=== PATIENT | female | born 1955 | race African-American/Black ===

== ENCOUNTER → 2016-09-27 | Outpatient (CLI) | payer MEDICARE, MEDICAID ==
[2015-08-31 10:00] VITALS: BP 94/58
[~2016-09-27] MED LIST: ASCO500C PO; ASPI81TA2 PO; CALC-169 PO; CAND32TA2 PO; CARV6.252 PO; COMPLETE; CYAN10005 PO; DOCU-27 PO; FERR134T PO; FURO40TA4 PO; GABA-586 PO; Hydrocodone/Acetaminophen PO; INSU100C4 SQ; INSU100I13 SQ; LOSA100T6 PO; LOSA25TA PO; METF500T4 PO; METO5TAB PO; OXYB5TAB PO; POLY17PO5 PO; SIMV20TA3 PO; SULF1TAB24 PO; [UNRECOGNIZED DRUG - OTHER]
== END | disposition home or self-care (01) ==
LOC: SPEC 17:16
PROVIDERS: ATTEND Podiatrist Foot & Ankle Surgery
DX: E11.42 Type 2 diabetes mellitus with diabetic polyneuropathy (principal); L97.521 Non-pressure chronic ulcer of other part of left foot limited to breakdown of skin
CPT/HCPCS: 87205

== ENCOUNTER 2016-10-13 19:27 | Inpatient (IN) | payer MEDICAID, MEDICARE ==
[~2016-10-13] VITALS: Ht 165.1 cm; Wt 83.6 kg
[~2016-10-13 19:27] MED LIST changes: +POLY17PO29 PO; -POLY17PO5 PO
[2016-10-13 20:37] LABS: BILIRUBIN,URINE NEGATIVE (NEG); GLUCOSE,URINE NEGATIVE (NEG); NITRITE,URINE NEGATIVE (NEG); PH,URINE 6.5; PROTEIN,URINE 100 mg/dL (NEG-TRACE); UROBILINOGEN,URINE 0.2 mg/dL (0.2 mg/dL)
[2016-10-13 20:38] LABS: BASO % 1 % (0-3); EOS % 0 % (0-3); HEMATOCRIT 29.7 % (36.0-47.0); HEMOGLOBIN 9.5 g/dL (12.0-15.5); LYMPH # 2.6 x10^3/uL (1.0-4.8); LYMPH % 50 % (24-48); MEAN CORPUSCULAR HEMOGLOBIN 26 pg (25-35); MEAN CORPUSCULAR HGB CONC 32 g/dL (31-37); MEAN CORPUSCULAR VOLUME 80 fL (79-100); MONO % 11 % (0-9); NEUT % 38 % (31-73); PLATELET COUNT 186 x10^3/uL (140-400); RED BLOOD COUNT 3.71 x10^6/uL (3.50-5.40); RED CELL DISTRIBUTION WIDTH 15.8 % (11.5-14.5); WHITE BLOOD COUNT 5.1 x10^3/uL (4.0-11.0)
[2016-10-13 20:44] LABS: BACTERIA,URINE FEW /HPF (0-FEW); RBC,URINE OCC /HPF (0-2)
[2016-10-13 20:45] LABS: SQUAMOUS EPITHELIAL CELL,UR MANY /LPF
[2016-10-13 20:49] LABS: CALCIUM 9.8 mg/dL (8.5-10.1); CREATININE 1.7 mg/dL (0.6-1.0); GFR 37.1; POTASSIUM 5.5 mmol/L (3.5-5.1)
[2016-10-13 20:57] LABS: ALBUMIN 3.4 g/dL (3.4-5.0); ALBUMIN/GLOBULIN RATIO 0.6 (1.0-1.7); TOTAL BILIRUBIN 0.4 mg/dL (0.2-1.0); TOTAL PROTEIN 9.2 g/dL (6.4-8.2)
[2016-10-13] MEDS ORDERED: NITROGLYCERIN SUBLINGUAL 0.4 MG BOTTLE OF 25. SL PRN ×2 (21:15→22:45)
[2016-10-13] MEDS ORDERED: ASPIRIN ENTERIC COATED 325 MG TABLET.DR. PO ONE (21:30)
[2016-10-13 21:49] LABS: CKMB MASS 1.4 ng/mL (0.0-3.6)
--- NOTE | 2016-10-13 22:13 | ED.ADGEN ---
Past Medical History Past Medical History: CHF, Diabetes-Type II, MRSA, Other Additional Past Medical Histor: blindness rt eye Past Surgical History: Cholecystectomy, Pacemaker, Other Additional Past Surgical Histo: "pacemaker removal",AMPUTATION OF 2ND TOE LEFT FOOT Alcohol Use: None Drug Use: None Adult General Chief Complaint Chief Complaint: ABDOMINAL PAIN HPI HPI Patient is a 61 year old female with history of onset diabetes, CHF, osteomyelitis of left foot with recent amputation of toe who presents with a gastric discomfort for the past 3 days. Patient reports persistent discomfort, abdominal bloating, patient's last bowel movement was approximately 9 days ago. Patient has been taking antibiotics and pain medications since left foot surgery. She denies fever, chills, nausea, vomiting and sweats. Denies chest pain, chest tightness, shortness breath, palpitation, recently pain or sweats. No leg pain or dysuria. No other acute symptoms or complaints. Review of Systems Review of Systems Review symptoms as.. All other review of symptoms negative. Current Medications Current Medications Current Medications Medications (Trade) Dose Ordered Sig/Wilfrid Start Time Stop Time Status Last Admin Dose Admin Aspirin (Ecotrin) 325 mg 1X ONCE 10/13/16 21:30 10/13/16 21:31 DC 10/13/16 21:40 325 MG Nitroglycerin (Nitrostat) 0.4 mg PRN Q5MIN PRN 10/13/16 21:15 10/13/16 22:42 DC Allergies Allergies Allergies Coded Allergies Type Severity Reaction Last Updated Verified celecoxib Allergy Intermediate 09/24/13 Yes ciprofloxacin Allergy Intermediate 04/16/15 Yes I S O L A T I O N *CONTACT* Allergy Unknown 07/24/15 Yes Physical Exam Physical Exam Constitutional: Well developed, well nourished, no acute distress, non-toxic appearance. HENT: Normocephalic, atraumatic, bilateral external ears normal, nose normal. Eyes: PERRLA, EOMI, conjunctiva normal. Neck: Normal range of motion, no tenderness. Cardiovascular:Heart rate regular rhythm, no murmur. Lungs & Thorax: Bilateral breath sounds clear to auscultation. Abdomen: Bowel sounds normal, soft, tension, normal bowel sounds, mild epigastric pain, tenderness reproducing with palpation. No rebound rigidity or guarding. Skin: Warm, dry, no erythema. Back: No tenderness, no CVA tenderness. Extremities: Left foot bandage for amputation Neurologic: Alert and oriented X 3, normal motor function, normal sensory function, no focal deficits noted. Psychologic: Affect normal, judgement normal, mood normal. Current Patient Data Vital Signs Vital Signs Date Time Temp Pulse Resp B/P Pulse Ox O2 Delivery O2 Flow Rate FiO2 10/13/16 22:11 73 18 156/74 95 Room Air 10/13/16 19:40 96.4 96.4 Lab Values Laboratory Tests Test 10/13/16 19:50 10/13/16 20:25 Urine Collection Type Unknown Urine Color Yellow Urine Clarity Clear Urine pH 6.5 Urine Specific [place] 1.015 Urine Protein 100mg/dL (NEG-TRACE) Urine Glucose (UA) Negativemg/dL (NEG) Urine Ketones (Stick) Negativemg/dL (NEG) Urine Blood Negative (NEG) Urine Nitrite Negative (NEG) Urine Bilirubin Negative (NEG) Urine Urobilinogen Dipstick 0.2mg/dL (0.2 mg/dL) Urine Leukocyte Esterase Trace (NEG) Urine RBC Occ/HPF (0-2) Urine WBC 5-10/HPF (0-4) Urine Squamous Epithelial Cells Many/LPF Urine Bacteria Few/HPF (0-FEW) Urine Hyaline Casts Occasional/HPF Urine Mucus Slight/LPF White Blood Count 5.1x10^3/uL (4.0-11.0) Red Blood Count 3.71x10^6/uL (3.50-5.40) Hemoglobin 9.5g/dL (12.0-15.5) L Hematocrit 29.7% (36.0-47.0) L Mean Corpuscular Volume 80fL (79-100) Mean Corpuscular Hemoglobin 26pg (25-35) Mean Corpuscular Hemoglobin Concent 32g/dL (31-37) Red Cell Distribution Width 15.8% (11.5-14.5) H Platelet Count 186x10^3/uL (140-400) Neutrophils (%) (Auto) 38% (31-73) Lymphocytes (%) (Auto) 50% (24-48) H Monocytes (%) (Auto) 11% (0-9) H Eosinophils (%) (Auto) 0% (0-3) Basophils (%) (Auto) 1% (0-3) Neutrophils # (Auto) 1.9x10^3uL (1.8-7.7) Lymphocytes # (Auto) 2.6x10^3/uL (1.0-4.8) Monocytes # (Auto) 0.6x10^3/uL (0.0-1.1) Eosinophils # (Auto) 0.0x10^3/uL (0.0-0.7) Basophils # (Auto) 0.0x10^3/uL (0.0-0.2) Sodium Level 133mmol/L (136-145) L Potassium Level 5.5mmol/L (3.5-5.1) H Chloride Level 102mmol/L (98-107) Carbon Dioxide Level 25mmol/L (21-32) Anion Gap 6 (6-14) Blood Urea Nitrogen 45mg/dL (7-20) H Creatinine 1.7mg/dL (0.6-1.0) H Estimated GFR (Cockcroft-Gault) 37.1 BUN/Creatinine Ratio 26 (6-20) H Glucose Level 149mg/dL (70-99) H Calcium Level 9.8mg/dL (8.5-10.1) Total Bilirubin 0.4mg/dL (0.2-1.0) Aspartate Amino Transferase (AST) 97U/L (15-37) H Alanine Aminotransferase (ALT) 68U/L (14-59) H Alkaline Phosphatase 435U/L (46-116) H Creatine Kinase 101U/L (26-192) Creatine Kinase MB (Mass) 1.4ng/mL (0.0-3.6) Creatine Kinase MB Relative Index 1.4% (0-4) Troponin I Quantitative 0.263ng/mL (0.000-0.055) C-Reactive Protein, Quantitative 3.3mg/L (0-3.3) Total Protein 9.2g/dL (6.4-8.2) H Albumin 3.4g/dL (3.4-5.0) Albumin/Globulin Ratio 0.6 (1.0-1.7) L Lipase 370U/L (73-393) Laboratory Tests 10/13/16 20:25 Laboratory Tests 10/13/16 20:25 EKG EKG [EKG: Normal sinus rhythm, rate 81, LVH with early repolarization, no acute ST- T wave changes, QTC 502] Radiology/Procedures Radiology/Procedures CT abdomen pelvis: No acute disease] Impressions: Nondescript upper abdominal pain, pressure without relief of aspirin and nitroglycerin. Patient's troponin noted to be positive, EKG does not reveal acute change Course & Med Decision Making Course & Med Decision Making Pertinent Labs and Imaging studies reviewed. (See chart for details) [s. No relief with nitroglycerin. Repeat troponin pending. Will admit to the hospitalist service for evaluation and treatment ] Dragon Disclaimer Dragon Disclaimer This electronic medical record was generated, in whole or in part, using a voice recognition dictation system. KRIS SIMS DO Oct 13, 2016 22:13
[2016-10-13] MEDS ORDERED: ONDANSETRON PF 4 MG/2 ML VIAL. IV PRN (22:45)
[2016-10-13] MEDS ORDERED: MORPHINE SULFATE 2 MG/ML DISP.SYRIN. IV PRN (22:45)
--- NOTE | 2016-10-13 23:13 | RAD ---
Examination: CT of the abdomen pelvis without contrast. HISTORY History of severe epigastric pain, nausea for several days. COMPARISON 05/25/2014. TECHNIQUE Axial CT images of the abdomen pelvis were performed without contrast. Coronal sagittal reformats were performed. Exposure: One or more of the following dose reduction technique were utilized for this examination: 1. Automated exposure control. 2.Adjustment of MA and /or KV according to patient size. 3. Use of iterative reconstruction technique. Findings: Minimal bibasilar lung atelectasis identified. No evidence of free air identified in the abdomen. The evaluation the solid organs is limited lack of IV contrast. The evaluation the bowel is limited lack of oral contrast. The visualized non contrasted liver, spleen, adrenals grossly appears unremarkable. Cholecystectomy clips identified. The stomach is mildly distended. No evidence of intrarenal collecting system calculi or hydronephrosis identified. There is minimal faint fat stranding about the pancreas probably due to mild motion artifact or mild pancreatitis. The small bowel is nondilated. The appendix is normal. Feces and gas noted in the colon throughout. The urinary bladder is mildly distended. Mild aortic atherosclerosis. No evidence of lytic bony destructive lesion. Impression: 1. Faint fat stranding identified about the pancreas could be due to motion artifact or pancreatitis. Correlate with lab values. 2. Cholecystectomy changes. Electronically signed by: Mike Brenner (Oct 13, 2016 23:12:07)
--- NOTE | 2016-10-13 23:23 | PDOC1 ---
History and Physical Date of Admission Date of Admission DATE: 10/13/16 TIME: 23:23 Identification/Chief Complaint Chief Complaint chest pain, abd pain Problems: Source Source: Chart review, Patient History of Present Illness History of Present Illness Santy is a 61 year old female with history of diabetes, CHF, Recently treated by Dr. Mercado, Podiatry, for osteomyelitis of left foot with recent amputation of toe. She presented to the ER today with acute abd pain and chest pain, gastric discomfort for the past 3 days. Pain about 5.10, but persistent discomfort, w/ some bloating, no recent bowel movement trop checked by ER, and minimally elevated, pt has prior CAD, had seen here previously by Dr. Manzano she feels better since presenting to ER, and was eating a sandwich in ER when I entered room Past Medical History Cardiovascular: CHF, HTN Pulmonary: No pertinent hx CENTRAL NERVOUS SYSTEM: Other Endocrine: Diabetes Past Surgical History Past Surgical History: Pacemaker, Cholecystectomy, Tonsillectomy, Other Family History Family History: Diabetes, Heart Disease, Hypertension Social History Smoke: No ALCOHOL: none Drugs: None Current Problem List Problem List Problems Medical Problems: (1) Abdominal pain Status: Acute (2) Chest pain Status: Acute (3) Elevated troponin Status: Acute Problems: Current Medications Current Medications Current Medications Aspirin (Ecotrin) 325 mg 1X ONCE PO Last administered on 10/13/16t 21:40; Start 10/13/16 at 21:30; Stop 10/13/16 at 21:31; Status DC Nitroglycerin (Nitrostat) 0.4 mg PRN Q5MIN PRN SL CHEST PAIN; Start 10/13/16 at 21:15; Stop 10/13/16 at 22:42; Status DC Ondansetron HCl (Zofran) 4 mg PRN Q8HRS PRN IV NAUSEA/VOMITING; Start 10/13/16 at 22:45; Stop 10/14/16 at 22:44 Morphine Sulfate 2 mg PRN Q2HR PRN IV SEVERE PAIN; Start 10/13/16 at 22:45; Stop 10/14/16 at 22:44 Nitroglycerin (Nitrostat) 0.4 mg PRN Q5MIN PRN SL CHEST PAIN; Start 10/13/16 at 22:45; Stop 10/14/16 at 22:44 Active Scripts Active Miralax (Polyethylene Glycol 3350) 17 Gm Powd.pack 17 Packet PO DAILY Colace (Docusate Sodium) 100 Mg Capsule 1 Cap PO BID [Hydrocodone/Acetaminophen] 1 TAB Tablet 1 Tab PO PRN Q6HRS PRN Reported High Potency Iron (Ferrous Sulfate) 134 Mg Tablet 134 Mg PO DAILY Losartan Potassium 100 Mg Tablet 100 Mg PO DAILY Metoclopramide Hcl 5 Mg Tablet 5 Mg PO DAILY Oxybutynin Chloride Er (Oxybutynin Chloride) 5 Mg Tab.er.24 1 Tab PO DAILY Furosemide 40 Mg Tablet 1 Tab PO DAILY Vitamin C (Ascorbic Acid) 500 Mg Capsule.er 500 Mg PO DAILY Gabapentin 300 Mg Capsule 600 Mg PO TID Vitamin B-12 (Cyanocobalamin (Vitamin B-12)) 1,000 Mcg Tablet 500 Mcg PO DAILY Lantus Solostar (Insulin Glargine,Hum.rec.anlog) 100 Unit/1 Ml Insuln.pen 10 Unit SQ QHS Novolog (Insulin Aspart) 100 Unit/1 Ml Cartridge 3 Unit SQ TIDAC Aspirin 81 Mg Tab.chew 81 Mg PO Carvedilol 6.25 Mg Tablet 6.25 Mg PO DAILY Metformin Hcl 500 Mg Tablet 1,000 Mg PO BID Calcium Citrate - Vit D3 Tab (Calcium Citrate/Vitamin D3) 1 Each Tablet 1 Each PO Allergies Allergies: Coded Allergies: celecoxib (Verified Allergy, Intermediate, 09/24/13) ciprofloxacin (Verified Allergy, Intermediate, 04/16/15) I S O L A T I O N *CONTACT* (Verified Allergy, Unknown, 07/24/15) mrsa + ROS Review of System She denies fever, chills, nausea, vomiting and sweats. Denies chest pain, chest tightness, shortness breath, palpitation, recently pain or sweats. No leg pain or dysuria. No other acute symptoms or complaints. General: No: Appetite, Chills, Fatigue, Malaise, Night Sweats, Other PSYCHOLOGICAL ROS: No: Anxiety, Behavioral Disorder, Concentration difficultie , Decreased libido, Depression, Disorientation, Hallucinations, Hostility, Irritablity, Memory difficulties, Mood Swings, Obsessive thoughts, Other, Physical abuse, Sexual abuse, Sleep disturbances, Suicidal ideation Eyes: No Blurry vision, No Decreased vision, No Double vision, No Dry eyes, No Excessive tearing, No Eye Pain, No Itchy Eyes, No Loss of vision, No Other, No Photophobia, No Scotomata, No Uses contacts, No Uses glasses HEENT: No: Epistaxis, Heacaches, Hearing change, Nasal congestion, Nasal discharge, Oral lesions, Other, Sinus pain, Sneezing, Snoring, Sore Throat, Tinnitus, Vertigo, Visual Changes, Vocal changes Respiratory: No: Cough, Hemoptysis, Orthopnea, Other, Pleuritic Pain, SOB with excertion, Shortness of breath, Sputum Changes, Stridor, Tachypnea, Wheezing Cardiovascular: yes Chest Pain, No Edema, No Lt Headedness, No Orthopnea, No Other, No Palpitations, No Paroxysmal Noc. Dyspnea Gastrointestinal: Yes Constipation, Yes Nausea Musculoskeletal: No Gait Disturbance, No Joint Pain, No Joint Stiffness, No Joint Swelling, No Muscle Pain, No Muscular Weakness, No Other, No Pain In:, No Swelling In: Neurological: Yes Dizziness, Yes Memory Loss, No Behavorial Changes, No Bowel/Bladder ControlChng, No Confusion, No Gait Disturbance, No Headaches, No Impaired Coord/balance, No Numbness/Tingling, No Other, No Seizures, No Speech Problems, No Tremors, No Visual Changes, No Weakness Skin: No Acne, No Dry Skin, No Eczema, No Hair Changes, No Lumps, No Mole Changes, No Mottling, No Nail Changes, No Other, No Pruritus, No Rash, No Skin Lesion Changes Physical Exam General: Alert, Oriented X3, Cooperative, No acute distress HEENT: Atraumatic, PERRLA, EOMI Lungs: Clear to auscultation, Normal air movement Heart: RRR, no murmurs Abdomen: Normal bowel sounds, Soft Rectal Exam: not examined Extremities: No clubbing, No cyanosis, No edema, Normal pulses Skin: No rashes, No significant lesion Neuro: Sensation intact, Cranial nerves 3-12 NL Psych/Mental Status: Mental status NL, Mood NL Vitals Vitals Vital Signs Date Time Temp Pulse Resp B/P Pulse Ox O2 Delivery O2 Flow Rate FiO2 10/13/16 21:41 76 17 147/77 94 Room Air 10/13/16 19:40 96.4 96.4 Labs Labs Laboratory Tests Test 10/13/16 19:50 10/13/16 20:25 Urine Collection Type Unknown Urine Color Yellow Urine Clarity Clear Urine pH 6.5 Urine Specific [place] 1.015 Urine Protein 100mg/dL (NEG-TRACE) Urine Glucose (UA) Negativemg/dL (NEG) Urine Ketones (Stick) Negativemg/dL (NEG) Urine Blood Negative (NEG) Urine Nitrite Negative (NEG) Urine Bilirubin Negative (NEG) Urine Urobilinogen Dipstick 0.2mg/dL (0.2 mg/dL) Urine Leukocyte Esterase Trace (NEG) Urine RBC Occ/HPF (0-2) Urine WBC 5-10/HPF (0-4) Urine Squamous Epithelial Cells Many/LPF Urine Bacteria Few/HPF (0-FEW) Urine Hyaline Casts Occasional/HPF Urine Mucus Slight/LPF White Blood Count 5.1x10^3/uL (4.0-11.0) Red Blood Count 3.71x10^6/uL (3.50-5.40) Hemoglobin 9.5g/dL (12.0-15.5) Hematocrit 29.7% (36.0-47.0) Mean Corpuscular Volume 80fL (79-100) Mean Corpuscular Hemoglobin 26pg (25-35) Mean Corpuscular Hemoglobin Concent 32g/dL (31-37) Red Cell Distribution Width 15.8% (11.5-14.5) Platelet Count 186x10^3/uL (140-400) Neutrophils (%) (Auto) 38% (31-73) Lymphocytes (%) (Auto) 50% (24-48) Monocytes (%) (Auto) 11% (0-9) Eosinophils (%) (Auto) 0% (0-3) Basophils (%) (Auto) 1% (0-3) Neutrophils # (Auto) 1.9x10^3uL (1.8-7.7) Lymphocytes # (Auto) 2.6x10^3/uL (1.0-4.8) Monocytes # (Auto) 0.6x10^3/uL (0.0-1.1) Eosinophils # (Auto) 0.0x10^3/uL (0.0-0.7) Basophils # (Auto) 0.0x10^3/uL (0.0-0.2) Sodium Level 133mmol/L (136-145) Potassium Level 5.5mmol/L (3.5-5.1) Chloride Level 102mmol/L (98-107) Carbon Dioxide Level 25mmol/L (21-32) Anion Gap 6 (6-14) Blood Urea Nitrogen 45mg/dL (7-20) Creatinine 1.7mg/dL (0.6-1.0) Estimated GFR (Cockcroft-Gault) 37.1 BUN/Creatinine Ratio 26 (6-20) Glucose Level 149mg/dL (70-99) Calcium Level 9.8mg/dL (8.5-10.1) Total Bilirubin 0.4mg/dL (0.2-1.0) Aspartate Amino Transf (AST/SGOT) 97U/L (15-37) Alanine Aminotransferase (ALT/SGPT) 68U/L (14-59) Alkaline Phosphatase 435U/L (46-116) Creatine Kinase 101U/L (26-192) Creatine Kinase MB (Mass) 1.4ng/mL (0.0-3.6) Creatine Kinase MB Relative Index 1.4% (0-4) Troponin I Quantitative 0.263ng/mL (0.000-0.055) C-Reactive Protein, Quantitative 3.3mg/L (0-3.3) Total Protein 9.2g/dL (6.4-8.2) Albumin 3.4g/dL (3.4-5.0) Albumin/Globulin Ratio 0.6 (1.0-1.7) Lipase 370U/L (73-393) Laboratory Tests Test 10/13/16 19:50 10/13/16 20:25 Urine Collection Type Unknown Urine Color Yellow Urine Clarity Clear Urine pH 6.5 Urine Specific [place] 1.015 Urine Protein 100mg/dL (NEG-TRACE) Urine Glucose (UA) Negativemg/dL (NEG) Urine Ketones (Stick) Negativemg/dL (NEG) Urine Blood Negative (NEG) Urine Nitrite Negative (NEG) Urine Bilirubin Negative (NEG) Urine Urobilinogen Dipstick 0.2mg/dL (0.2 mg/dL) Urine Leukocyte Esterase Trace (NEG) Urine RBC Occ/HPF (0-2) Urine WBC 5-10/HPF (0-4) Urine Squamous Epithelial Cells Many/LPF Urine Bacteria Few/HPF (0-FEW) Urine Hyaline Casts Occasional/HPF Urine Mucus Slight/LPF White Blood Count 5.1x10^3/uL (4.0-11.0) Red Blood Count 3.71x10^6/uL (3.50-5.40) Hemoglobin 9.5g/dL (12.0-15.5) Hematocrit 29.7% (36.0-47.0) Mean Corpuscular Volume 80fL (79-100) Mean Corpuscular Hemoglobin 26pg (25-35) Mean Corpuscular Hemoglobin Concent 32g/dL (31-37) Red Cell Distribution Width 15.8% (11.5-14.5) Platelet Count 186x10^3/uL (140-400) Neutrophils (%) (Auto) 38% (31-73) Lymphocytes (%) (Auto) 50% (24-48) Monocytes (%) (Auto) 11% (0-9) Eosinophils (%) (Auto) 0% (0-3) Basophils (%) (Auto) 1% (0-3) Neutrophils # (Auto) 1.9x10^3uL (1.8-7.7) Lymphocytes # (Auto) 2.6x10^3/uL (1.0-4.8) Monocytes # (Auto) 0.6x10^3/uL (0.0-1.1) Eosinophils # (Auto) 0.0x10^3/uL (0.0-0.7) Basophils # (Auto) 0.0x10^3/uL (0.0-0.2) Sodium Level 133mmol/L (136-145) Potassium Level 5.5mmol/L (3.5-5.1) Chloride Level 102mmol/L (98-107) Carbon Dioxide Level 25mmol/L (21-32) Anion Gap 6 (6-14) Blood Urea Nitrogen 45mg/dL (7-20) Creatinine 1.7mg/dL (0.6-1.0) Estimated GFR (Cockcroft-Gault) 37.1 BUN/Creatinine Ratio 26 (6-20) Glucose Level 149mg/dL (70-99) Calcium Level 9.8mg/dL (8.5-10.1) Total Bilirubin 0.4mg/dL (0.2-1.0) Aspartate Amino Transf (AST/SGOT) 97U/L (15-37) Alanine Aminotransferase (ALT/SGPT) 68U/L (14-59) Alkaline Phosphatase 435U/L (46-116) Creatine Kinase 101U/L (26-192) Creatine Kinase MB (Mass) 1.4ng/mL (0.0-3.6) Creatine Kinase MB Relative Index 1.4% (0-4) Troponin I Quantitative 0.263ng/mL (0.000-0.055) C-Reactive Protein, Quantitative 3.3mg/L (0-3.3) Total Protein 9.2g/dL (6.4-8.2) Albumin 3.4g/dL (3.4-5.0) Albumin/Globulin Ratio 0.6 (1.0-1.7) Lipase 370U/L (73-393) VTE Prophylaxis Ordered VTE Prophylaxis Devices: Yes VTE Pharmacological Prophylaxi: Yes Assessment/Plan Assessment/Plan chest pain, angina, hx CAD, trop up minimal, repeat set, CV consult, cont ASA hyperkalemia, hold Losartan CKD 3-4, consult renal chronic diastolic CHF, with HTN, coreg, will need other agent than ARB foot pain after recent surg, pain med constipation, miralax, colace, add amitiza, fleet, consider lactulose mag PRN, caution with renal fxn obesity, BMI 33 Dm2, home meds admit ROLDAN FRANCISCO MD Oct 13, 2016 23:23
[2016-10-13] MEDS ORDERED: MAGNESIUM HYDROXIDE 2,400 MG/30 ML ORAL.SUSP. PO PRN (23:45)
[2016-10-13] MEDS ORDERED: SODIUM PHOSPHATES 19/7GM 133 ML ENEMA. PR PRN (23:45)
[2016-10-13] MEDS ORDERED: POLYETHYLENE GLYCOL 3350 17 GM PACKET. PO PRN (23:45)
[2016-10-13] MEDS ORDERED: SIMETHICONE 80 MG TAB.CHEW PO PRN (23:45)
[2016-10-14] VITALS (7 sets, daily range): BP systolic 100–175; BP diastolic 56–70
[2016-10-14] MEDS ORDERED: POLYETHYLENE GLYCOL 3350 17 GM PACKET. PO ONE (00:30)
--- NOTE | 2016-10-14 01:00 | ACF ---
Admission Forms Criteria ANGINA Clinical Indications for Admission to Inpatient Care (Place 'X' for any and all applicable criteria): Admission is indicated for suspected angina (e.g, chest pain pattern, angina- equivalent symptom, or other finding suggesting unstable angina) with ANY ONE of the following(1)(2)(3)(4)(5): [ ]I. Angina needing acute intervention as indicated by ALL of the following ( 11)(12): [ ]a) Unstable angina is present as indicated by angina that is ANY ONE of the following: [ ]i) New onset [ ]ii) Nocturnal [ ]iii) Prolonged at rest [ ]iv) Progressive [ ]b) Angina warrants acute intervention as indicated by ANY ONE of the following: [ ]i) Recurrent angina (e.g, not responding as previously to treatment) [ ]ii) Angina at rest or with low-level activities despite initial medical therapy [ ]iii) New or presumably new ST-segment depression on ECG [ ]iv) Signs or symptoms of heart failure (eg, dyspnea, pulmonary edema) [ ]v) New or worsening mitral regurgitation [ ]vi) Hemodynamic instability [ ]vii) Dangerous arrhythmia (eg, sustained ventricular tachycardia) [ ]viii) History of percutaneous coronary intervention within 6 months [ ]ix) History of coronary artery bypass graft surgery [ ]x) HOANG risk score of 2 or greater[A] [ ]xi) History of Diabetes(14) [ ]xii) High-risk cardiac ischemia findings on noninvasive testing (e.g, echocardiogram, treadmill testing, nuclear scan) [ ]xiii) Chronic renal insufficiency (ie, estimated GFR less than 60 mL/min/1.732m) [ ]xiv) Left ventricular ejection fraction less than 40% [X ]II. Evidence of IL (e.g, cardiac biomarkers positive, ST-segment elevation on ECG). Also use Myocardial Infarction. Extended stay beyond goal length of stay may be needed for (1)(26): [ ]a) Intravascular procedural complications such as acute vessel closure, stent malposition, or vessel dissection(27) [ ]b) Extravascular procedural complications such as retroperitoneal hematoma, pericardial effusion, or cardiac tamponade [ ]c) Entry site complications causing bleeding, hematoma, or distal ischemia and requiring ongoing monitoring, surgical repair, or surgical thrombectomy(28) [ ]d) Heart failure [ ]e) Dangerous arrhythmia [ ]f) Hemodynamic instability with persisting symptoms after intensive medical management, or recurring severe prolonged symptoms [ ]g) Postprocedural myocardial infarction or acute renal failure The original [facility] [employer] content created by [facility] has been revised. The portions of the content which have been revised are identified through the use of italic text or in bold, and [facility] has neither reviewed nor approved the modified material. All other unmodified content is copyright [facility]. Please see references footnoted in the original [facility] edition 2016 Admission Criteria Met?: Yes ROBSON HOUGH Oct 14, 2016 01:00
[2016-10-14] MEDS ORDERED: ESTR30CR VG (02:03)
[2016-10-14] MEDS ORDERED: CYCL10TA2 PO (02:03)
[2016-10-14] MEDS: HYDROcodone/APAP 5/325MG 1 TAB TABLET PO PRN ×2 (03:35→09:11)
[2016-10-14 06:11] LABS: BASO % 1 % (0-3); EOS % 1 % (0-3); HEMATOCRIT 27.6 % (36.0-47.0); HEMOGLOBIN 9.1 g/dL (12.0-15.5); LYMPH # 2.2 x10^3/uL (1.0-4.8); LYMPH % 52 % (24-48); MEAN CORPUSCULAR HEMOGLOBIN 26 pg (25-35); MEAN CORPUSCULAR HGB CONC 33 g/dL (31-37); MEAN CORPUSCULAR VOLUME 79 fL (79-100); MONO % 12 % (0-9); NEUT % 35 % (31-73); PLATELET COUNT 177 x10^3/uL (140-400); RED BLOOD COUNT 3.51 x10^6/uL (3.50-5.40); RED CELL DISTRIBUTION WIDTH 15.7 % (11.5-14.5); WHITE BLOOD COUNT 4.2 x10^3/uL (4.0-11.0)
--- NOTE | 2016-10-14 06:12 | EKG ---
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
[2016-10-14 06:39] LABS: ALBUMIN 2.8 g/dL (3.4-5.0); ALBUMIN/GLOBULIN RATIO 0.5 (1.0-1.7); CALCIUM 9.3 mg/dL (8.5-10.1); CREATININE 1.7 mg/dL (0.6-1.0); GFR 37.1; POTASSIUM 4.9 mmol/L (3.5-5.1); TOTAL BILIRUBIN 0.3 mg/dL (0.2-1.0); TOTAL PROTEIN 8.7 g/dL (6.4-8.2)
[2016-10-14] MEDS: INSULIN ASPART 300 UNITS/3 ML INSULN.PEN SQ SCH ×3 (07:30→17:31)
[2016-10-14] MEDS ORDERED: LUBIPROSTONE 8 MCG CAPSULE PO SCH (08:00)
[2016-10-14] MEDS ORDERED: POLYETHYLENE GLYCOL 3350 17 GM PACKET. PO SCH (09:00)
[2016-10-14] MEDS ORDERED: metFORMIN 500 MG TABLET PO SCH (09:00)
[2016-10-14] MEDS ORDERED: FUROSEMIDE 40 MG TABLET. PO SCH (09:00)
--- NOTE | 2016-10-14 10:05 | PDOC2 ---
HARSHIL KEMP DIESEL ENGINE TESTER 10/14/16 1005: CARDIAC CONSULT DATE OF CONSULT Date of Consult DATE: 10/14/16 TIME: 09:32 REASON FOR CONSULT Reason for Consult: chest pain, CAD, trop change REFERRING PHYSICIAN Referring Physician: [place] SOURCE Source: Chart review, Patient HISTORY OF PRESENT ILLNESS HISTORY OF PRESENT ILLNESS This is a pleasant 61 yo female admitted for complains of abdominal pain and constipation. Reports that she had outpt left toe amputations Tues last week and has not had BM since then. Typically she said she loose stools but has not had any since. Appetite is decreased but verbalized good hydration. Reports abdominal cramps with some tenderness. Some nausea but no immediate vomiting. Denies any opioids but notable meds in her list are opioids as well as flexeril. Since her surgery she has not had any cardiac symptoms. No episodes of chest pain, SOA, palpitations, PHILLIPS, nor diaphoresis and dizziness. No shoulder or jaw pain. She is significant for CAD, CKD. She had LHC on 06/2015 which noted with nonobstructive lesions and no intervention done. She has not followed up with any park worker since then PAST MEDICAL HISTORY Past Medical History Cardiovascular: HTN, Hyperlipidemia, moderate CAD per cardiac cath mid LAD 50- 60% lesion, mid to disal 50-60% and a small diagonal branch lesion of 50% to 60% . LCx had a proximal 40% lesion and RCA had a distal 40% lesion, No PCI performed., possible cardiac arrest, bradyarrhythmia requiring a pacemaker. Pulmonary: No pertinent hx CENTRAL NERVOUS SYSTEM: DPN GI: GERD, constipation Heme/Onc: No pertinent hx Hepatobiliary: No pertinent hx Psych: No pertinent hx Musculoskeletal: Osteoarthritis Rheumatologic: No pertinent hx Infectious disease: No pertinent hx ENT: No pertinent hx Renal/: UTI Endocrine: Diabetes (2) Dermatology: No pertinent hx PAST SURGICAL HISTORY Past Surgical History: Pacemaker (placement and removal unknown reason and was told she does not need it anymore), Cataract Removal, Other (C; toe amputations) FAMILY HISTORY Family History Coronary Artery Disease (brother) SOCIAL HISTORY Social History Smoke: no ALCOHOL: no Drugs: None Lives: with Family CURRENT MEDICATIONS CURRENT MEDICATIONS Current Medications Medications (Trade) Dose Ordered Sig/Wilfrid Route PRN Reason Start Time Stop Time Status Last Admin Dose Admin Aspirin (Ecotrin) 325 mg 1X ONCE PO 10/13/16 21:30 10/13/16 21:31 DC 10/13/16 21:40 Polyethylene Glycol (miraLAX PACKET) 17 gm 1X ONCE PO 10/14/16 00:30 10/14/16 00:31 DC 10/14/16 00:47 Acetaminophen/ Hydrocodone Bitart (Lortab 5/325) 1 tab PRN Q6HRS PRN PO SEVERE PAIN 10/14/16 00:15 10/14/16 09:11 ALLERGIES ALLERGIES: Coded Allergies: celecoxib (Verified Allergy, Intermediate, 09/24/13) ciprofloxacin (Verified Allergy, Intermediate, 04/16/15) I S O L A T I O N *CONTACT* (Verified Allergy, Unknown, 07/24/15) mrsa + ROS Review of System 14 point ROS evaluated with pertinent positives noted per HPI PHYSICAL EXAM General: Alert, Oriented X3, Cooperative, No acute distress HEENT: Atraumatic, Mucous membr. moist/pink Heart: Regular rate (SR with LBBB), Normal S1, Normal S2, Other (2/6 systolic murmur to LLS border) Abdomen: Other (diffuse tenderness) Extremities: No cyanosis, No edema Skin: No breakdown, Other (left toe surigical wound) Neuro: Normal speech, Sensation intact Psych/Mental Status: Mental status NL, Mood NL MUSCULOSKELETAL: Osteoarthritic changes both hands VITALS VITALS Vital Signs Date Time Temp Pulse Resp B/P Pulse Ox O2 Delivery O2 Flow Rate FiO2 10/14/16 09:11 Room Air 10/14/16 07:30 98.1 70 18 119/68 98 98.1 LABS Lab: Laboratory Tests Test 10/13/16 19:50 10/13/16 20:25 10/14/16 05:50 10/14/16 07:32 Urine Collection Type Unknown Urine Color Yellow Urine Clarity Clear Urine pH 6.5 Urine Specific [place] 1.015 Urine Protein 100mg/dL (NEG-TRACE) Urine Glucose (UA) Negativemg/dL (NEG) Urine Ketones (Stick) Negativemg/dL (NEG) Urine Blood Negative (NEG) Urine Nitrite Negative (NEG) Urine Bilirubin Negative (NEG) Urine Urobilinogen Dipstick 0.2mg/dL (0.2 mg/dL) Urine Leukocyte Esterase Trace (NEG) Urine RBC Occ/HPF (0-2) Urine WBC 5-10/HPF (0-4) Urine Squamous Epithelial Cells Many/LPF Urine Bacteria Few/HPF (0-FEW) Urine Hyaline Casts Occasional/HPF Urine Mucus Slight/LPF White Blood Count 5.1x10^3/uL (4.0-11.0) 4.2x10^3/uL (4.0-11.0) Red Blood Count 3.71x10^6/uL (3.50-5.40) 3.51x10^6/uL (3.50-5.40) Hemoglobin 9.5g/dL (12.0-15.5) 9.1g/dL (12.0-15.5) Hematocrit 29.7% (36.0-47.0) 27.6% (36.0-47.0) Mean Corpuscular Volume 80fL (79-100) 79fL (79-100) Mean Corpuscular Hemoglobin 26pg (25-35) 26pg (25-35) Mean Corpuscular Hemoglobin Concent 32g/dL (31-37) 33g/dL (31-37) Red Cell Distribution Width 15.8% (11.5-14.5) 15.7% (11.5-14.5) Platelet Count 186x10^3/uL (140-400) 177x10^3/uL (140-400) Neutrophils (%) (Auto) 38% (31-73) 35% (31-73) Lymphocytes (%) (Auto) 50% (24-48) 52% (24-48) Monocytes (%) (Auto) 11% (0-9) 12% (0-9) Eosinophils (%) (Auto) 0% (0-3) 1% (0-3) Basophils (%) (Auto) 1% (0-3) 1% (0-3) Neutrophils # (Auto) 1.9x10^3uL (1.8-7.7) 1.5x10^3uL (1.8-7.7) Lymphocytes # (Auto) 2.6x10^3/uL (1.0-4.8) 2.2x10^3/uL (1.0-4.8) Monocytes # (Auto) 0.6x10^3/uL (0.0-1.1) 0.5x10^3/uL (0.0-1.1) Eosinophils # (Auto) 0.0x10^3/uL (0.0-0.7) 0.0x10^3/uL (0.0-0.7) Basophils # (Auto) 0.0x10^3/uL (0.0-0.2) 0.0x10^3/uL (0.0-0.2) Sodium Level 133mmol/L (136-145) 131mmol/L (136-145) Potassium Level 5.5mmol/L (3.5-5.1) 4.9mmol/L (3.5-5.1) Chloride Level 102mmol/L (98-107) 101mmol/L (98-107) Carbon Dioxide Level 25mmol/L (21-32) 24mmol/L (21-32) Anion Gap 6 (6-14) 6 (6-14) Blood Urea Nitrogen 45mg/dL (7-20) 38mg/dL (7-20) Creatinine 1.7mg/dL (0.6-1.0) 1.7mg/dL (0.6-1.0) Estimated GFR (Cockcroft-Gault) 37.1 37.1 BUN/Creatinine Ratio 26 (6-20) 22 (6-20) Glucose Level 149mg/dL (70-99) 206mg/dL (70-99) Calcium Level 9.8mg/dL (8.5-10.1) 9.3mg/dL (8.5-10.1) Total Bilirubin 0.4mg/dL (0.2-1.0) 0.3mg/dL (0.2-1.0) Aspartate Amino Transf (AST/SGOT) 97U/L (15-37) 75U/L (15-37) Alanine Aminotransferase (ALT/SGPT) 68U/L (14-59) 61U/L (14-59) Alkaline Phosphatase 435U/L (46-116) 369U/L (46-116) Creatine Kinase 101U/L (26-192) Creatine Kinase MB (Mass) 1.4ng/mL (0.0-3.6) Creatine Kinase MB Relative Index 1.4% (0-4) Troponin I Quantitative 0.263ng/mL (0.000-0.055) 0.240ng/mL (0.000-0.055) C-Reactive Protein, Quantitative 3.3mg/L (0-3.3) Total Protein 9.2g/dL (6.4-8.2) 8.7g/dL (6.4-8.2) Albumin 3.4g/dL (3.4-5.0) 2.8g/dL (3.4-5.0) Albumin/Globulin Ratio 0.6 (1.0-1.7) 0.5 (1.0-1.7) Lipase 370U/L (73-393) Triglycerides Level 91mg/dL (0-150) Cholesterol Level 145mg/dL (0-200) LDL Cholesterol, Calculated 79mg/dL (0-100) VLDL Cholesterol, Calculated 18mg/dL (0-40) Non-HDL Cholesterol Calculated 97mg/dL (0-129) HDL Cholesterol 48mg/dL (40-60) Cholesterol/HDL Ratio 3.0 Glucose (Fingerstick) 166mg/dL (70-99) ECHOCARDIOGRAM ECHOCARDIOGRAM <Conclusion> Mild LV systolic dysfunction. EF 40-45% Valvular abnormalities with mild mitral calcification as noted above. Mild pulmonary hypertension. Trace pericardial effusion. DATE: 07/14/15 1401 HEART CATH HEART CATH Hemodynamics. Left ventricular pressure 140/14, aortic root pressure 138/74. Coronaries. Left main. The left main had no lesions. Left anterior descending. The patient was a moderate size vessel with a wraparound anatomy. It had a 40-50% mid lesion and a more distal 35% lesion as well as a first diagonal branch with a 35% lesion. Left circumflex. The left circumflex is a smaller nondominant vessel with a mid 30% lesion. Right coronary artery. The right coronary was a larger dominant vessel with a mid 15% lesion. Fractional flow reserve of the LAD lesion was normal with a measurement of 0.94. <Conclusion> Mild to moderate coronary artery disease with calcified vessels but no hemodynamically significant lesions. Normal left ventricular EDP. DATE: 07/16/15 0915 ASSESSMENT/PLAN ASSESSMENT/PLAN 1. Abdominal pain/constipation/transaminitis: S/P toe amputation 10/04/2016 no BM since then. Positive for lortab and flexeril on med list. 2. Elevated troponin: peaked at 0.26 with underlying hyperkalemia/renal insufficiency. No cardiac symptoms. 3. CAD: significant lesions but nonobstructive per [facility] 06/2015. No cardiac symptoms 4. ASHLEY on CKD: suspect stage 3. 5. HTN: labile 6. DM2/HLP 7. Hx of osteomyelitis/post left toe amputations 8. Hx of PPM placement and removal: Placed for bradycardia, was told not needed anymore. removed >3 yrs ago. 9. Chronic LBBB: SR with no significant ectopies overnight. Now with LAFB 10. Cardiomyopathy: Last EF noted at 40%. compensated 11. Suspect poor compliance Recommendations 1. Nephrology consult pending. Consult GI 2. With notable CAD and failed cardiac follow up, will consider for MPI once GI/ renal issues are better 3. Continue with optimization and secondary prevention 4. TTE, TSH, lipids, Mg Problems: LAUREL MENDOZA MD 10/14/16 2012: CARDIAC CONSULT ALLERGIES ALLERGIES: Coded Allergies: celecoxib (Verified Allergy, Intermediate, 09/24/13) ciprofloxacin (Verified Allergy, Intermediate, 04/16/15) I S O L A T I O N *CONTACT* (Verified Allergy, Unknown, 07/24/15) mrsa + ASSESSMENT/PLAN ASSESSMENT/PLAN Patient seen and examined. Agree with SUPERVISOR CARPENTERS's assessment and plan. Slight troponin elevation probably secondary to renal insuff - no acute EKG changes. Doubt ACS. Recent cath results noted above. Repeat 2D echo showed LVEF 20%, down from 40% on prior echo. Possible MPI monday. Thank you for your consultation. Problems: HARSHIL KEMP DIESEL ENGINE TESTER Oct 14, 2016 10:05 LAUREL MENDOZA MD Oct 14, 2016 20:12
[2016-10-14] MEDS ORDERED: BISACODYL 10 MG SUPP.RECT. PR PRN (12:00)
--- NOTE | 2016-10-14 12:00 | PDOC2 ---
GI CONSULT Reason For Consult: Abd pain, constipation, transaminitis HPI: HPI: 61 y/o AA female evaluated in the ER for abd discomfort and constipation. Cardiology following for minimally elevated troponin. Had toe amputation last week, last BM that day (10/04). History a bit difficult, seems previous bowel pattern was 1 stool about every other day. Reports takes Tylenol and Advil for pain, home meds show Lortab and Flexeril. Has tried Miralax (not daily) w/o relief. Miralax (received x1) and Amitiza ordered here. CT w/ stool and gas throughout colon. Feels bloated w/ mid-abd discomfort. Denies n/v, reflux/ heartburn, dysphagia, hematochezia, melena. Believes has lost 20 pounds recently w/ decreased appetite. Reports normal EGD and colonoscopy w/ Dr. Tate in 2011. Denies history of abnormal LFTs. S/p cholecystectomy. Normal liver on CT. PMH: PMH: HTN, HLD, CAD, OA, DM, CKD, osteomyelitis, pacemaker, cholecystectomy, hysterectomy, toe amputations Social History: Smoke: Quit ALCOHOL: none Drugs: Marijuana (in the past) ROS: GEN: Denies fevers, chills, sweats HEENT: Denies blurred vision, sore throat CV: ?chest pain vs upper abd pain RESP: Denies shortness of air, cough GI: Per HPI : Denies hematuria, dysuria ENDO: +weight loss NEURO: Denies confusion, dizziness MSK: +foot pain SKIN: Denies jaundice, pruritus VItals: Vitals: Vital Signs Date Time Temp Pulse Resp B/P Pulse Ox O2 Delivery O2 Flow Rate FiO2 10/14/16 10:20 98.4 80 19 113/64 97 Room Air 98.4 Labs: Labs: Laboratory Tests Test 10/13/16 19:50 10/13/16 20:25 10/14/16 05:50 10/14/16 07:32 Urine Collection Type Unknown Urine Color Yellow Urine Clarity Clear Urine pH 6.5 Urine Specific [place] 1.015 Urine Protein 100mg/dL (NEG-TRACE) Urine Glucose (UA) Negativemg/dL (NEG) Urine Ketones (Stick) Negativemg/dL (NEG) Urine Blood Negative (NEG) Urine Nitrite Negative (NEG) Urine Bilirubin Negative (NEG) Urine Urobilinogen Dipstick 0.2mg/dL (0.2 mg/dL) Urine Leukocyte Esterase Trace (NEG) Urine RBC Occ/HPF (0-2) Urine WBC 5-10/HPF (0-4) Urine Squamous Epithelial Cells Many/LPF Urine Bacteria Few/HPF (0-FEW) Urine Hyaline Casts Occasional/HPF Urine Mucus Slight/LPF White Blood Count 5.1x10^3/uL (4.0-11.0) 4.2x10^3/uL (4.0-11.0) Red Blood Count 3.71x10^6/uL (3.50-5.40) 3.51x10^6/uL (3.50-5.40) Hemoglobin 9.5g/dL (12.0-15.5) 9.1g/dL (12.0-15.5) Hematocrit 29.7% (36.0-47.0) 27.6% (36.0-47.0) Mean Corpuscular Volume 80fL (79-100) 79fL (79-100) Mean Corpuscular Hemoglobin 26pg (25-35) 26pg (25-35) Mean Corpuscular Hemoglobin Concent 32g/dL (31-37) 33g/dL (31-37) Red Cell Distribution Width 15.8% (11.5-14.5) 15.7% (11.5-14.5) Platelet Count 186x10^3/uL (140-400) 177x10^3/uL (140-400) Neutrophils (%) (Auto) 38% (31-73) 35% (31-73) Lymphocytes (%) (Auto) 50% (24-48) 52% (24-48) Monocytes (%) (Auto) 11% (0-9) 12% (0-9) Eosinophils (%) (Auto) 0% (0-3) 1% (0-3) Basophils (%) (Auto) 1% (0-3) 1% (0-3) Neutrophils # (Auto) 1.9x10^3uL (1.8-7.7) 1.5x10^3uL (1.8-7.7) Lymphocytes # (Auto) 2.6x10^3/uL (1.0-4.8) 2.2x10^3/uL (1.0-4.8) Monocytes # (Auto) 0.6x10^3/uL (0.0-1.1) 0.5x10^3/uL (0.0-1.1) Eosinophils # (Auto) 0.0x10^3/uL (0.0-0.7) 0.0x10^3/uL (0.0-0.7) Basophils # (Auto) 0.0x10^3/uL (0.0-0.2) 0.0x10^3/uL (0.0-0.2) Sodium Level 133mmol/L (136-145) 131mmol/L (136-145) Potassium Level 5.5mmol/L (3.5-5.1) 4.9mmol/L (3.5-5.1) Chloride Level 102mmol/L (98-107) 101mmol/L (98-107) Carbon Dioxide Level 25mmol/L (21-32) 24mmol/L (21-32) Anion Gap 6 (6-14) 6 (6-14) Blood Urea Nitrogen 45mg/dL (7-20) 38mg/dL (7-20) Creatinine 1.7mg/dL (0.6-1.0) 1.7mg/dL (0.6-1.0) Estimated GFR (Cockcroft-Gault) 37.1 37.1 BUN/Creatinine Ratio 26 (6-20) 22 (6-20) Glucose Level 149mg/dL (70-99) 206mg/dL (70-99) Calcium Level 9.8mg/dL (8.5-10.1) 9.3mg/dL (8.5-10.1) Total Bilirubin 0.4mg/dL (0.2-1.0) 0.3mg/dL (0.2-1.0) Aspartate Amino Transf (AST/SGOT) 97U/L (15-37) 75U/L (15-37) Alanine Aminotransferase (ALT/SGPT) 68U/L (14-59) 61U/L (14-59) Alkaline Phosphatase 435U/L (46-116) 369U/L (46-116) Creatine Kinase 101U/L (26-192) Creatine Kinase MB (Mass) 1.4ng/mL (0.0-3.6) Creatine Kinase MB Relative Index 1.4% (0-4) Troponin I Quantitative 0.263ng/mL (0.000-0.055) 0.240ng/mL (0.000-0.055) C-Reactive Protein, Quantitative 3.3mg/L (0-3.3) Total Protein 9.2g/dL (6.4-8.2) 8.7g/dL (6.4-8.2) Albumin 3.4g/dL (3.4-5.0) 2.8g/dL (3.4-5.0) Albumin/Globulin Ratio 0.6 (1.0-1.7) 0.5 (1.0-1.7) Lipase 370U/L (73-393) Magnesium Level 2.3mg/dL (1.8-2.4) Triglycerides Level 91mg/dL (0-150) Cholesterol Level 145mg/dL (0-200) LDL Cholesterol, Calculated 79mg/dL (0-100) VLDL Cholesterol, Calculated 18mg/dL (0-40) Non-HDL Cholesterol Calculated 97mg/dL (0-129) HDL Cholesterol 48mg/dL (40-60) Cholesterol/HDL Ratio 3.0 Thyroid Stimulating Hormone (TSH) 2.476uIU/mL (0.358-3.74) Glucose (Fingerstick) 166mg/dL (70-99) Allergies: Coded Allergies: celecoxib (Verified Allergy, Intermediate, 09/24/13) ciprofloxacin (Verified Allergy, Intermediate, 04/16/15) I S O L A T I O N *CONTACT* (Verified Allergy, Unknown, 07/24/15) mrsa + Medications: Current Medications Medications (Trade) Dose Ordered Sig/Wilfrid Route PRN Reason Start Time Stop Time Status Last Admin Dose Admin Aspirin (Ecotrin) 325 mg 1X ONCE PO 10/13/16 21:30 10/13/16 21:31 DC 10/13/16 21:40 Polyethylene Glycol (miraLAX PACKET) 17 gm 1X ONCE PO 10/14/16 00:30 10/14/16 00:31 DC 10/14/16 00:47 Acetaminophen/ Hydrocodone Bitart (Lortab 5/325) 1 tab PRN Q6HRS PRN PO SEVERE PAIN 10/14/16 00:15 10/14/16 09:11 Imaging: Imaging: CT A/P w/o contrast Minimal bibasilar lung atelectasis identified. No evidence of free air identified in the abdomen. The visualized non contrasted liver, spleen, adrenals grossly appears unremarkable. Cholecystectomy clips identified. The stomach is mildly distended. No evidence of intrarenal collecting system calculi or hydronephrosis identified. There is minimal faint fat stranding about the pancreas probably due to mild motion artifact or mild pancreatitis. The small bowel is nondilated. The appendix is normal. Feces and gas noted in the colon throughout. The urinary bladder is mildly distended. Mild aortic atherosclerosis. No evidence of lytic bony destructive lesion. Impression: 1. Faint fat stranding identified about the pancreas could be due to motion artifact or pancreatitis. Correlate with lab values. 2. Cholecystectomy changes. Echocardiogram 10/14/16 PENDING PE: GEN: NAD HEENT: Atraumatic, PERRL LUNGS: CTAB HEART: RRR ABD: BS+, periumbilical discomfort EXTREMITY: No edema SKIN: No rashes, no jaundice NEURO/PSYCH: A & O 3 A/P: A/P: Abd discomfort, constipation -since toe amputation 10/04 -?narcotic use, seems tried Miralax sporadically Abnormal LFTs - improved -s/p prerna -normal liver on imaging Weight loss -h/o DM, ?compliance Anemia -h/o this, stable, denies bleeding -says normal EGD and colonoscopy in 2011 CAD, min elevated troponin, ASHLEY/CKD -cardiology following, considering MPI -renal consult pending -- D/w Dr. Alicea. Will check w/ office re: colonoscopy and EGD. Increase Miralax, will start w/ higher Amitiza dose, also try suppository. Consider enema, may need Relistor/Movantik. LFTs improving, will check Hep panel. KINGSTON HURTADO Oct 14, 2016 12:00
--- NOTE | 2016-10-14 12:29 | PDOC2 ---
CONSULT Date of Consult Date of Consult DATE: 10/14/16 TIME: 12:22 Reason for Consult Reason for Consult: ^ed Creat; ^ K (now resolved) Referring Physician Referring Physician: dr chaudhari Source Source: Chart review, Patient History of Present Illness Reason for Visit: abd pain Past Medical History Cardiovascular: CHF, HTN Pulmonary: No pertinent hx CENTRAL NERVOUS SYSTEM: Other Endocrine: Diabetes Past Surgical History Past Surgical History: Pacemaker (placement and removal unknown reason and was told she does not need it anymore), Cataract Removal, Other (LHC; toe amputations) Family History Family History: Diabetes, Heart Disease, Hypertension Social History Quit ALCOHOL: none Drugs: Marijuana (in the past) Lives: with Family Current Problem List Problem List Problems Medical Problems: (1) Abdominal pain Status: Acute (2) Chest pain Status: Acute (3) Elevated troponin Status: Acute Current Medications Current Medications Current Medications Aspirin (Ecotrin) 325 mg 1X ONCE PO Last administered on 10/13/16 21:40; Start 10/13/16 at 21:30; Stop 10/13/16 at 21:31; Status DC Nitroglycerin (Nitrostat) 0.4 mg PRN Q5MIN PRN SL CHEST PAIN; Start 10/13/16 at 21:15; Stop 10/13/16 at 22:42; Status DC Ondansetron HCl (Zofran) 4 mg PRN Q8HRS PRN IV NAUSEA/VOMITING; Start 10/13/16 at 22:45; Stop 10/14/16 at 22:44 Morphine Sulfate 2 mg PRN Q2HR PRN IV SEVERE PAIN; Start 10/13/16 at 22:45; Stop 10/14/16 at 22:44 Nitroglycerin (Nitrostat) 0.4 mg PRN Q5MIN PRN SL CHEST PAIN; Start 10/13/16 at 22:45; Stop 10/14/16 at 22:44 Polyethylene Glycol (miraLAX PACKET) 17 gm DAILY PO ; Start 10/14/16 at 09:00; Stop 10/14/16 at 11:55; Status DC Polyethylene Glycol (miraLAX PACKET) 17 gm PRN DAILY PRN PO CONSTIPATION; Start 10/13/16 at 23:45 Polyethylene Glycol (miraLAX PACKET) 17 gm 1X ONCE PO Last administered on 00:47; Start 10/14/16 at 00:30; Stop 10/14/16 at 00:31; Status DC Docusate Sodium (Colace) 100 mg DAILY PO ; Start 10/14/16 at 09:00 Magnesium Hydroxide (Milk Of Magnesia) 2,400 mg PRN DAILY PRN PO CONSTIPATION; Start 10/13/16 at 23:45 Simethicone (Gas-X) 80 mg PRN AFTMEALHC PRN PO GAS / BLOATING; Start 10/13/16 at 23:45 Aspirin (Children'S Aspirin) 81 mg DAILY PO ; Start 10/14/16 at 09:00 Carvedilol (Coreg) 6.25 mg DAILYWBKFT PO ; Start 10/14/16 at 08:00 Cyanocobalamin (Vitamin B-12) 500 mcg DAILY PO ; Start 10/14/16 at 09:00 Furosemide (Lasix) 40 mg DAILY PO ; Start 10/14/16 at 09:00 Metformin HCl (Glucophage) 1,000 mg BID PO ; Start 10/14/16 at 09:00; Status UNV Metoclopramide HCl (Reglan) 5 mg DAILY PO ; Start 10/14/16 at 09:00 Ascorbic Acid (Vitamin C) 500 mg DAILY PO ; Start 10/14/16 at 09:00 Gabapentin (Neurontin) 600 mg BID PO ; Start 10/14/16 at 09:00 Insulin Aspart (Novolog) 3 units TIDAC SQ ; Start 10/14/16 at 07:30 Insulin Detemir (Levemir) 10 units QHS SQ ; Start 10/14/16 at 21:00 Oxybutynin Chloride (Ditropan) 5 mg DAILY PO ; Start 10/14/16 at 09:00 Acetaminophen/ Hydrocodone Bitart (Lortab 5/325) 1 tab PRN Q6HRS PRN PO SEVERE PAIN Last administered on 10/14/16t 09:11; Start 10/14/16 at 00:15 Lubiprostone (Amitiza) 8 mcg BIDWMEALS PO ; Start 10/14/16 at 08:00; Stop at 11:55; Status DC Sodium Biphosphate/ Sodium Phosphate (Fleet Adult) 133 ml PRN DAILY PRN [place] CONSTIPATION; Start 10/13/16 at 23:45 Lubiprostone (Amitiza) 24 mcg BIDWMEALS PO ; Start 10/14/16 at 17:00 Polyethylene Glycol (miraLAX PACKET) 17 gm BID PO ; Start 10/14/16 at 21:00 Bisacodyl (Dulcolax Supp) 10 mg PRN DAILY PRN [place] CONSTIPATION; Start 10/14/16 at 12:00 Pantoprazole Sodium (Protonix) 40 mg DAILYAC PO ; Start 10/14/16 at 12:00 Active Scripts Active Miralax (Polyethylene Glycol 3350) 17 Gm Powd.pack 17 Packet PO DAILY Colace (Docusate Sodium) 100 Mg Capsule 1 Cap PO BID [Hydrocodone/Acetaminophen] 1 TAB Tablet 1 Tab PO PRN Q6HRS PRN Reported Premarin (Estrogens, Conjugated) 30 Gm Cream.appl 1 Kristal VG 3X/WEEK Cyclobenzaprine Hcl 10 Mg Tablet 1 Tab PO QHS Losartan Potassium 100 Mg Tablet 100 Mg PO DAILY Oxybutynin Chloride Er (Oxybutynin Chloride) 5 Mg Tab.er.24 1 Tab PO DAILY Furosemide 40 Mg Tablet 1 Tab PO DAILY Gabapentin 300 Mg Capsule 600 Mg PO TID Vitamin B-12 (Cyanocobalamin (Vitamin B-12)) 1,000 Mcg Tablet 500 Mcg PO DAILY Lantus Solostar (Insulin Glargine,Hum.rec.anlog) 100 Unit/1 Ml Insuln.pen 10 Unit SQ QHS Novolog (Insulin Aspart) 100 Unit/1 Ml Cartridge 3 Unit SQ TIDAC Aspirin 81 Mg Tab.chew 81 Mg PO Carvedilol 6.25 Mg Tablet 6.25 Mg PO DAILY Metformin Hcl 500 Mg Tablet 1,000 Mg PO BID Calcium Citrate - Vit D3 Tab (Calcium Citrate/Vitamin D3) 1 Each Tablet 1 Each PO Allergies Allergies: Coded Allergies: celecoxib (Verified Allergy, Intermediate, 09/24/13) ciprofloxacin (Verified Allergy, Intermediate, 04/16/15) I S O L A T I O N *CONTACT* (Verified Allergy, Unknown, 07/24/15) mrsa + ROS Review of System GEN: no Fevers no Chills EYES: no new Visual Complaints (CUAUHTEMOC CALDERON) ENT: no EN Drainage no new Hearing deficiets CVS: no Orthopnea no CP RESP: no SOB no PHILLIPS GI: no Nausea no Vomiting + Abd pain and constipation : no Dysuria no Urgency HEME: no easy bruising no Palp Ly Nodes NEURO no Focal Weakness no Sz PSYCH: no Suicidal Ideation no Depression SKIN: no Rashes ENDO: no Polyuria or Polydipsia no Hot/Cold Intolerance MU SK: occ Arthralgia no Myalgia Physical Exam Physical Exam General Appearance: Awake Alert Oriented x 3 In no Distress Eyes: ? dec VIsion Conjunctiva Normal EN: No EN Drainage Mucous Memb. moist Neck: no JVD no JVP Supple no Thyromegaly CVS: S1 S2 ? Murmur No Gallop No Rub no Edema Resp: no Rales no Rhonchi no Acc. Muscle use GI: BAS +ve NO Bruit Non Tender Non Distended : no CVA tenderness; no Suprapubic Tenderness SKIN: no Rashes Breast Exam deferred Mu.Sk: Adequate ROM no Muscle Atrophy Heme: Unable to palpate Obvious LAD no palp Splenomegaly NEURO: Good Strength and Tone Cranial Nerves II - XII grossly intact Psych: not Depressed no Active hallucination Vital Signs Vital Signs Date Time Temp Pulse Resp B/P Pulse Ox O2 Delivery O2 Flow Rate FiO2 10/14/16 10:20 98.4 80 19 113/64 97 Room Air 98.4 Assessment & Plan ? ASHLEY v/s CKD III Current FLuid and E-lyte status does not necessitate emergent need for Dialysis. Will re-evaluate for Dialysis in am, R/o Paraproteinemia CKD III - HTNSive + Dm /NS. ^K (POA) better now - ? lab error vs due to ARB. would like to ct use of ARB due to Proteinuria and CKD Protein Gap with Low Alb - check PEPS Proteinruia (ch for ~ 1 yr as noted by PCP - quantitate with 24-hr URine lowish Na - watch trend off of Diuretics; resume on D/c ? Constipation due to lasix and constipation - defer to GI to eval Anemia: check Iron, may need Epogen Transfuse as needed. HTN: Current BP meds reviewed. See orders for changes. ^ed LFTs - defer w/up to GI ; CK WNL Discussed Plan of Care and prognosis etc. at length with family. Labs Labs Laboratory Tests Test 10/13/16 19:50 10/13/16 20:25 10/14/16 05:50 10/14/16 07:32 Urine Collection Type Unknown Urine Color Yellow Urine Clarity Clear Urine pH 6.5 Urine Specific [place] 1.015 Urine Protein 100mg/dL (NEG-TRACE) Urine Glucose (UA) Negativemg/dL (NEG) Urine Ketones (Stick) Negativemg/dL (NEG) Urine Blood Negative (NEG) Urine Nitrite Negative (NEG) Urine Bilirubin Negative (NEG) Urine Urobilinogen Dipstick 0.2mg/dL (0.2 mg/dL) Urine Leukocyte Esterase Trace (NEG) Urine RBC Occ/HPF (0-2) Urine WBC 5-10/HPF (0-4) Urine Squamous Epithelial Cells Many/LPF Urine Bacteria Few/HPF (0-FEW) Urine Hyaline Casts Occasional/HPF Urine Mucus Slight/LPF White Blood Count 5.1x10^3/uL (4.0-11.0) 4.2x10^3/uL (4.0-11.0) Red Blood Count 3.71x10^6/uL (3.50-5.40) 3.51x10^6/uL (3.50-5.40) Hemoglobin 9.5g/dL (12.0-15.5) 9.1g/dL (12.0-15.5) Hematocrit 29.7% (36.0-47.0) 27.6% (36.0-47.0) Mean Corpuscular Volume 80fL (79-100) 79fL (79-100) Mean Corpuscular Hemoglobin 26pg (25-35) 26pg (25-35) Mean Corpuscular Hemoglobin Concent 32g/dL (31-37) 33g/dL (31-37) Red Cell Distribution Width 15.8% (11.5-14.5) 15.7% (11.5-14.5) Platelet Count 186x10^3/uL (140-400) 177x10^3/uL (140-400) Neutrophils (%) (Auto) 38% (31-73) 35% (31-73) Lymphocytes (%) (Auto) 50% (24-48) 52% (24-48) Monocytes (%) (Auto) 11% (0-9) 12% (0-9) Eosinophils (%) (Auto) 0% (0-3) 1% (0-3) Basophils (%) (Auto) 1% (0-3) 1% (0-3) Neutrophils # (Auto) 1.9x10^3uL (1.8-7.7) 1.5x10^3uL (1.8-7.7) Lymphocytes # (Auto) 2.6x10^3/uL (1.0-4.8) 2.2x10^3/uL (1.0-4.8) Monocytes # (Auto) 0.6x10^3/uL (0.0-1.1) 0.5x10^3/uL (0.0-1.1) Eosinophils # (Auto) 0.0x10^3/uL (0.0-0.7) 0.0x10^3/uL (0.0-0.7) Basophils # (Auto) 0.0x10^3/uL (0.0-0.2) 0.0x10^3/uL (0.0-0.2) Sodium Level 133mmol/L (136-145) 131mmol/L (136-145) Potassium Level 5.5mmol/L (3.5-5.1) 4.9mmol/L (3.5-5.1) Chloride Level 102mmol/L (98-107) 101mmol/L (98-107) Carbon Dioxide Level 25mmol/L (21-32) 24mmol/L (21-32) Anion Gap 6 (6-14) 6 (6-14) Blood Urea Nitrogen 45mg/dL (7-20) 38mg/dL (7-20) Creatinine 1.7mg/dL (0.6-1.0) 1.7mg/dL (0.6-1.0) Estimated GFR (Cockcroft-Gault) 37.1 37.1 BUN/Creatinine Ratio 26 (6-20) 22 (6-20) Glucose Level 149mg/dL (70-99) 206mg/dL (70-99) Calcium Level 9.8mg/dL (8.5-10.1) 9.3mg/dL (8.5-10.1) Total Bilirubin 0.4mg/dL (0.2-1.0) 0.3mg/dL (0.2-1.0) Aspartate Amino Transf (AST/SGOT) 97U/L (15-37) 75U/L (15-37) Alanine Aminotransferase (ALT/SGPT) 68U/L (14-59) 61U/L (14-59) Alkaline Phosphatase 435U/L (46-116) 369U/L (46-116) Creatine Kinase 101U/L (26-192) Creatine Kinase MB (Mass) 1.4ng/mL (0.0-3.6) Creatine Kinase MB Relative Index 1.4% (0-4) Troponin I Quantitative 0.263ng/mL (0.000-0.055) 0.240ng/mL (0.000-0.055) C-Reactive Protein, Quantitative 3.3mg/L (0-3.3) Total Protein 9.2g/dL (6.4-8.2) 8.7g/dL (6.4-8.2) Albumin 3.4g/dL (3.4-5.0) 2.8g/dL (3.4-5.0) Albumin/Globulin Ratio 0.6 (1.0-1.7) 0.5 (1.0-1.7) Lipase 370U/L (73-393) Magnesium Level 2.3mg/dL (1.8-2.4) Triglycerides Level 91mg/dL (0-150) Cholesterol Level 145mg/dL (0-200) LDL Cholesterol, Calculated 79mg/dL (0-100) VLDL Cholesterol, Calculated 18mg/dL (0-40) Non-HDL Cholesterol Calculated 97mg/dL (0-129) HDL Cholesterol 48mg/dL (40-60) Cholesterol/HDL Ratio 3.0 Thyroid Stimulating Hormone (TSH) 2.476uIU/mL (0.358-3.74) Glucose (Fingerstick) 166mg/dL (70-99) Test 10/14/16 10:23 Glucose (Fingerstick) 146mg/dL (70-99) Laboratory Tests Test 10/13/16 19:50 10/13/16 20:25 10/14/16 05:50 10/14/16 07:32 Urine Collection Type Unknown Urine Color Yellow Urine Clarity Clear Urine pH 6.5 Urine Specific [place] 1.015 Urine Protein 100mg/dL (NEG-TRACE) Urine Glucose (UA) Negativemg/dL (NEG) Urine Ketones (Stick) Negativemg/dL (NEG) Urine Blood Negative (NEG) Urine Nitrite Negative (NEG) Urine Bilirubin Negative (NEG) Urine Urobilinogen Dipstick 0.2mg/dL (0.2 mg/dL) Urine Leukocyte Esterase Trace (NEG) Urine RBC Occ/HPF (0-2) Urine WBC 5-10/HPF (0-4) Urine Squamous Epithelial Cells Many/LPF Urine Bacteria Few/HPF (0-FEW) Urine Hyaline Casts Occasional/HPF Urine Mucus Slight/LPF White Blood Count 5.1x10^3/uL (4.0-11.0) 4.2x10^3/uL (4.0-11.0) Red Blood Count 3.71x10^6/uL (3.50-5.40) 3.51x10^6/uL (3.50-5.40) Hemoglobin 9.5g/dL (12.0-15.5) 9.1g/dL (12.0-15.5) Hematocrit 29.7% (36.0-47.0) 27.6% (36.0-47.0) Mean Corpuscular Volume 80fL (79-100) 79fL (79-100) Mean Corpuscular Hemoglobin 26pg (25-35) 26pg (25-35) Mean Corpuscular Hemoglobin Concent 32g/dL (31-37) 33g/dL (31-37) Red Cell Distribution Width 15.8% (11.5-14.5) 15.7% (11.5-14.5) Platelet Count 186x10^3/uL (140-400) 177x10^3/uL (140-400) Neutrophils (%) (Auto) 38% (31-73) 35% (31-73) Lymphocytes (%) (Auto) 50% (24-48) 52% (24-48) Monocytes (%) (Auto) 11% (0-9) 12% (0-9) Eosinophils (%) (Auto) 0% (0-3) 1% (0-3) Basophils (%) (Auto) 1% (0-3) 1% (0-3) Neutrophils # (Auto) 1.9x10^3uL (1.8-7.7) 1.5x10^3uL (1.8-7.7) Lymphocytes # (Auto) 2.6x10^3/uL (1.0-4.8) 2.2x10^3/uL (1.0-4.8) Monocytes # (Auto) 0.6x10^3/uL (0.0-1.1) 0.5x10^3/uL (0.0-1.1) Eosinophils # (Auto) 0.0x10^3/uL (0.0-0.7) 0.0x10^3/uL (0.0-0.7) Basophils # (Auto) 0.0x10^3/uL (0.0-0.2) 0.0x10^3/uL (0.0-0.2) Sodium Level 133mmol/L (136-145) 131mmol/L (136-145) Potassium Level 5.5mmol/L (3.5-5.1) 4.9mmol/L (3.5-5.1) Chloride Level 102mmol/L (98-107) 101mmol/L (98-107) Carbon Dioxide Level 25mmol/L (21-32) 24mmol/L (21-32) Anion Gap 6 (6-14) 6 (6-14) Blood Urea Nitrogen 45mg/dL (7-20) 38mg/dL (7-20) Creatinine 1.7mg/dL (0.6-1.0) 1.7mg/dL (0.6-1.0) Estimated GFR (Cockcroft-Gault) 37.1 37.1 BUN/Creatinine Ratio 26 (6-20) 22 (6-20) Glucose Level 149mg/dL (70-99) 206mg/dL (70-99) Calcium Level 9.8mg/dL (8.5-10.1) 9.3mg/dL (8.5-10.1) Total Bilirubin 0.4mg/dL (0.2-1.0) 0.3mg/dL (0.2-1.0) Aspartate Amino Transf (AST/SGOT) 97U/L (15-37) 75U/L (15-37) Alanine Aminotransferase (ALT/SGPT) 68U/L (14-59) 61U/L (14-59) Alkaline Phosphatase 435U/L (46-116) 369U/L (46-116) Creatine Kinase 101U/L (26-192) Creatine Kinase MB (Mass) 1.4ng/mL (0.0-3.6) Creatine Kinase MB Relative Index 1.4% (0-4) Troponin I Quantitative 0.263ng/mL (0.000-0.055) 0.240ng/mL (0.000-0.055) C-Reactive Protein, Quantitative 3.3mg/L (0-3.3) Total Protein 9.2g/dL (6.4-8.2) 8.7g/dL (6.4-8.2) Albumin 3.4g/dL (3.4-5.0) 2.8g/dL (3.4-5.0) Albumin/Globulin Ratio 0.6 (1.0-1.7) 0.5 (1.0-1.7) Lipase 370U/L (73-393) Magnesium Level 2.3mg/dL (1.8-2.4) Triglycerides Level 91mg/dL (0-150) Cholesterol Level 145mg/dL (0-200) LDL Cholesterol, Calculated 79mg/dL (0-100) VLDL Cholesterol, Calculated 18mg/dL (0-40) Non-HDL Cholesterol Calculated 97mg/dL (0-129) HDL Cholesterol 48mg/dL (40-60) Cholesterol/HDL Ratio 3.0 Thyroid Stimulating Hormone (TSH) 2.476uIU/mL (0.358-3.74) Glucose (Fingerstick) 166mg/dL (70-99) Test 10/14/16 10:23 Glucose (Fingerstick) 146mg/dL (70-99) Images Images CT Abd/ Pelvis: No evidence of intrarenal collecting system calculi or hydronephrosis identified. The urinary bladder is mildly distended. Mild aortic atherosclerosis. INGRID LOMBARDI MD Oct 14, 2016 12:29
[2016-10-14] MEDS ORDERED: MAGNESIUM SULFATE 2GM 50 ML IV PRN (12:30)
--- NOTE | 2016-10-14 12:30 | PDOC ---
PROGRESS NOTES Chief Complaint Chief Complaint cc: chest pain, abdominal pain. s/p L 2nd toe amputation Diabetes Mellitus type II chronic diastolic CHF CAD prior pacemaker with subsequent removal ASHLEY/CKD, creatinine of 1.7 on admission HTN GERD osteoarthritis History of Present Illness History of Present Illness Patient seen and evaluated at bedside. Patient notes abdominal cramping with bloating and nausea. Patient confirms she has not had a normal bowel movement since her toe amputation last week. d/w nurse about plan of care. Vitals Vitals Vital Signs Date Time Temp Pulse Resp B/P Pulse Ox O2 Delivery O2 Flow Rate FiO2 10/14/16 10:20 98.4 80 19 113/64 97 Room Air 98.4 Physical Exam General: Alert, Oriented X3, Cooperative, No acute distress Heart: Regular rate (SR with LBBB), Normal S1, Normal S2, Other (2/6 systolic murmur to LLS border) Lungs: Clear, Other (diminished inspiratory effort. negative chest retractions and/or accessory muscle use. ) Abdomen: Soft, Other (diffuse tenderness to palpation. Negative peritoneal signs. ) Extremities: No cyanosis, No edema Skin: No breakdown, Other (left toe surigical wound. dressing clean, dry, and intact ) Labs LABS Laboratory Tests Test 10/13/16 19:50 10/13/16 20:25 10/14/16 05:50 10/14/16 07:32 Urine Collection Type Unknown Urine Color Yellow Urine Clarity Clear Urine pH 6.5 Urine Specific [place] 1.015 Urine Protein 100mg/dL (NEG-TRACE) Urine Glucose (UA) Negativemg/dL (NEG) Urine Ketones (Stick) Negativemg/dL (NEG) Urine Blood Negative (NEG) Urine Nitrite Negative (NEG) Urine Bilirubin Negative (NEG) Urine Urobilinogen Dipstick 0.2mg/dL (0.2 mg/dL) Urine Leukocyte Esterase Trace (NEG) Urine RBC Occ/HPF (0-2) Urine WBC 5-10/HPF (0-4) Urine Squamous Epithelial Cells Many/LPF Urine Bacteria Few/HPF (0-FEW) Urine Hyaline Casts Occasional/HPF Urine Mucus Slight/LPF White Blood Count 5.1x10^3/uL (4.0-11.0) 4.2x10^3/uL (4.0-11.0) Red Blood Count 3.71x10^6/uL (3.50-5.40) 3.51x10^6/uL (3.50-5.40) Hemoglobin 9.5g/dL (12.0-15.5) 9.1g/dL (12.0-15.5) Hematocrit 29.7% (36.0-47.0) 27.6% (36.0-47.0) Mean Corpuscular Volume 80fL (79-100) 79fL (79-100) Mean Corpuscular Hemoglobin 26pg (25-35) 26pg (25-35) Mean Corpuscular Hemoglobin Concent 32g/dL (31-37) 33g/dL (31-37) Red Cell Distribution Width 15.8% (11.5-14.5) 15.7% (11.5-14.5) Platelet Count 186x10^3/uL (140-400) 177x10^3/uL (140-400) Neutrophils (%) (Auto) 38% (31-73) 35% (31-73) Lymphocytes (%) (Auto) 50% (24-48) 52% (24-48) Monocytes (%) (Auto) 11% (0-9) 12% (0-9) Eosinophils (%) (Auto) 0% (0-3) 1% (0-3) Basophils (%) (Auto) 1% (0-3) 1% (0-3) Neutrophils # (Auto) 1.9x10^3uL (1.8-7.7) 1.5x10^3uL (1.8-7.7) Lymphocytes # (Auto) 2.6x10^3/uL (1.0-4.8) 2.2x10^3/uL (1.0-4.8) Monocytes # (Auto) 0.6x10^3/uL (0.0-1.1) 0.5x10^3/uL (0.0-1.1) Eosinophils # (Auto) 0.0x10^3/uL (0.0-0.7) 0.0x10^3/uL (0.0-0.7) Basophils # (Auto) 0.0x10^3/uL (0.0-0.2) 0.0x10^3/uL (0.0-0.2) Sodium Level 133mmol/L (136-145) 131mmol/L (136-145) Potassium Level 5.5mmol/L (3.5-5.1) 4.9mmol/L (3.5-5.1) Chloride Level 102mmol/L (98-107) 101mmol/L (98-107) Carbon Dioxide Level 25mmol/L (21-32) 24mmol/L (21-32) Anion Gap 6 (6-14) 6 (6-14) Blood Urea Nitrogen 45mg/dL (7-20) 38mg/dL (7-20) Creatinine 1.7mg/dL (0.6-1.0) 1.7mg/dL (0.6-1.0) Estimated GFR (Cockcroft-Gault) 37.1 37.1 BUN/Creatinine Ratio 26 (6-20) 22 (6-20) Glucose Level 149mg/dL (70-99) 206mg/dL (70-99) Calcium Level 9.8mg/dL (8.5-10.1) 9.3mg/dL (8.5-10.1) Total Bilirubin 0.4mg/dL (0.2-1.0) 0.3mg/dL (0.2-1.0) Aspartate Amino Transf (AST/SGOT) 97U/L (15-37) 75U/L (15-37) Alanine Aminotransferase (ALT/SGPT) 68U/L (14-59) 61U/L (14-59) Alkaline Phosphatase 435U/L (46-116) 369U/L (46-116) Creatine Kinase 101U/L (26-192) Creatine Kinase MB (Mass) 1.4ng/mL (0.0-3.6) Creatine Kinase MB Relative Index 1.4% (0-4) Troponin I Quantitative 0.263ng/mL (0.000-0.055) 0.240ng/mL (0.000-0.055) C-Reactive Protein, Quantitative 3.3mg/L (0-3.3) Total Protein 9.2g/dL (6.4-8.2) 8.7g/dL (6.4-8.2) Albumin 3.4g/dL (3.4-5.0) 2.8g/dL (3.4-5.0) Albumin/Globulin Ratio 0.6 (1.0-1.7) 0.5 (1.0-1.7) Lipase 370U/L (73-393) Magnesium Level 2.3mg/dL (1.8-2.4) Triglycerides Level 91mg/dL (0-150) Cholesterol Level 145mg/dL (0-200) LDL Cholesterol, Calculated 79mg/dL (0-100) VLDL Cholesterol, Calculated 18mg/dL (0-40) Non-HDL Cholesterol Calculated 97mg/dL (0-129) HDL Cholesterol 48mg/dL (40-60) Cholesterol/HDL Ratio 3.0 Thyroid Stimulating Hormone (TSH) 2.476uIU/mL (0.358-3.74) Glucose (Fingerstick) 166mg/dL (70-99) Test 10/14/16 10:23 Glucose (Fingerstick) 146mg/dL (70-99) Review of Systems Review of Systems (+) diffuse abdominal pain (+) constipation (+) nausea (+) bloating Assessment and Plan Assessmemt and Plan Problems Medical Problems: (1) Abdominal pain Status: Acute (2) Chest pain Status: Acute (3) Elevated troponin Status: Acute Assessment: 1.) constipation, suspect narcotic induced 2.) chest pain, currently resolved. 3.) CAD, significant lesions but nonobstructive per [facility] 06/2015. 4.) hyperkalemia POA, currently WNL 5.) ASHLEY/CKD, creatinine downtrending 6.) Chronic diastolic CHF 7.) HTN 8.) Recent L 2nd toe amputation secondary to osteomyelitis 9.) Diabetes mellitus type II 10.) chronic LBBB 11.) transaminitis, with elevated alkaline phosphatase. 12.) normocytic, normochromic anemia Plan: 1.) continue bowel regimen and increased Amitiza, per GI 2.) Monitor AM labs 3.) maintenance fluids, per nephrology 4.) continue home medications as appropriate. Glucose checks AC, consider SSI if required. 5.) Consult Dr. Mercado, podiatry for post-operation f/u 6.) f/u on iron studies, hep panel, and repeat LFTs. Problems: Comment Review of Relevant I have reviewed the following items bro (where applicable) has been applied. Labs Laboratory Tests Test 10/13/16 19:50 10/13/16 20:25 10/14/16 05:50 10/14/16 07:32 Urine Collection Type Unknown Urine Color Yellow Urine Clarity Clear Urine pH 6.5 Urine Specific [place] 1.015 Urine Protein 100mg/dL (NEG-TRACE) Urine Glucose (UA) Negativemg/dL (NEG) Urine Ketones (Stick) Negativemg/dL (NEG) Urine Blood Negative (NEG) Urine Nitrite Negative (NEG) Urine Bilirubin Negative (NEG) Urine Urobilinogen Dipstick 0.2mg/dL (0.2 mg/dL) Urine Leukocyte Esterase Trace (NEG) Urine RBC Occ/HPF (0-2) Urine WBC 5-10/HPF (0-4) Urine Squamous Epithelial Cells Many/LPF Urine Bacteria Few/HPF (0-FEW) Urine Hyaline Casts Occasional/HPF Urine Mucus Slight/LPF White Blood Count 5.1x10^3/uL (4.0-11.0) 4.2x10^3/uL (4.0-11.0) Red Blood Count 3.71x10^6/uL (3.50-5.40) 3.51x10^6/uL (3.50-5.40) Hemoglobin 9.5g/dL (12.0-15.5) 9.1g/dL (12.0-15.5) Hematocrit 29.7% (36.0-47.0) 27.6% (36.0-47.0) Mean Corpuscular Volume 80fL (79-100) 79fL (79-100) Mean Corpuscular Hemoglobin 26pg (25-35) 26pg (25-35) Mean Corpuscular Hemoglobin Concent 32g/dL (31-37) 33g/dL (31-37) Red Cell Distribution Width 15.8% (11.5-14.5) 15.7% (11.5-14.5) Platelet Count 186x10^3/uL (140-400) 177x10^3/uL (140-400) Neutrophils (%) (Auto) 38% (31-73) 35% (31-73) Lymphocytes (%) (Auto) 50% (24-48) 52% (24-48) Monocytes (%) (Auto) 11% (0-9) 12% (0-9) Eosinophils (%) (Auto) 0% (0-3) 1% (0-3) Basophils (%) (Auto) 1% (0-3) 1% (0-3) Neutrophils # (Auto) 1.9x10^3uL (1.8-7.7) 1.5x10^3uL (1.8-7.7) Lymphocytes # (Auto) 2.6x10^3/uL (1.0-4.8) 2.2x10^3/uL (1.0-4.8) Monocytes # (Auto) 0.6x10^3/uL (0.0-1.1) 0.5x10^3/uL (0.0-1.1) Eosinophils # (Auto) 0.0x10^3/uL (0.0-0.7) 0.0x10^3/uL (0.0-0.7) Basophils # (Auto) 0.0x10^3/uL (0.0-0.2) 0.0x10^3/uL (0.0-0.2) Sodium Level 133mmol/L (136-145) 131mmol/L (136-145) Potassium Level 5.5mmol/L (3.5-5.1) 4.9mmol/L (3.5-5.1) Chloride Level 102mmol/L (98-107) 101mmol/L (98-107) Carbon Dioxide Level 25mmol/L (21-32) 24mmol/L (21-32) Anion Gap 6 (6-14) 6 (6-14) Blood Urea Nitrogen 45mg/dL (7-20) 38mg/dL (7-20) Creatinine 1.7mg/dL (0.6-1.0) 1.7mg/dL (0.6-1.0) Estimated GFR (Cockcroft-Gault) 37.1 37.1 BUN/Creatinine Ratio 26 (6-20) 22 (6-20) Glucose Level 149mg/dL (70-99) 206mg/dL (70-99) Calcium Level 9.8mg/dL (8.5-10.1) 9.3mg/dL (8.5-10.1) Total Bilirubin 0.4mg/dL (0.2-1.0) 0.3mg/dL (0.2-1.0) Aspartate Amino Transf (AST/SGOT) 97U/L (15-37) 75U/L (15-37) Alanine Aminotransferase (ALT/SGPT) 68U/L (14-59) 61U/L (14-59) Alkaline Phosphatase 435U/L (46-116) 369U/L (46-116) Creatine Kinase 101U/L (26-192) Creatine Kinase MB (Mass) 1.4ng/mL (0.0-3.6) Creatine Kinase MB Relative Index 1.4% (0-4) Troponin I Quantitative 0.263ng/mL (0.000-0.055) 0.240ng/mL (0.000-0.055) C-Reactive Protein, Quantitative 3.3mg/L (0-3.3) Total Protein 9.2g/dL (6.4-8.2) 8.7g/dL (6.4-8.2) Albumin 3.4g/dL (3.4-5.0) 2.8g/dL (3.4-5.0) Albumin/Globulin Ratio 0.6 (1.0-1.7) 0.5 (1.0-1.7) Lipase 370U/L (73-393) Magnesium Level 2.3mg/dL (1.8-2.4) Triglycerides Level 91mg/dL (0-150) Cholesterol Level 145mg/dL (0-200) LDL Cholesterol, Calculated 79mg/dL (0-100) VLDL Cholesterol, Calculated 18mg/dL (0-40) Non-HDL Cholesterol Calculated 97mg/dL (0-129) HDL Cholesterol 48mg/dL (40-60) Cholesterol/HDL Ratio 3.0 Thyroid Stimulating Hormone (TSH) 2.476uIU/mL (0.358-3.74) Glucose (Fingerstick) 166mg/dL (70-99) Test 10/14/16 10:23 Glucose (Fingerstick) 146mg/dL (70-99) Laboratory Tests Test 10/13/16 19:50 10/13/16 20:25 10/14/16 05:50 10/14/16 07:32 Urine Collection Type Unknown Urine Color Yellow Urine Clarity Clear Urine pH 6.5 Urine Specific [place] 1.015 Urine Protein 100mg/dL (NEG-TRACE) Urine Glucose (UA) Negativemg/dL (NEG) Urine Ketones (Stick) Negativemg/dL (NEG) Urine Blood Negative (NEG) Urine Nitrite Negative (NEG) Urine Bilirubin Negative (NEG) Urine Urobilinogen Dipstick 0.2mg/dL (0.2 mg/dL) Urine Leukocyte Esterase Trace (NEG) Urine RBC Occ/HPF (0-2) Urine WBC 5-10/HPF (0-4) Urine Squamous Epithelial Cells Many/LPF Urine Bacteria Few/HPF (0-FEW) Urine Hyaline Casts Occasional/HPF Urine Mucus Slight/LPF White Blood Count 5.1x10^3/uL (4.0-11.0) 4.2x10^3/uL (4.0-11.0) Red Blood Count 3.71x10^6/uL (3.50-5.40) 3.51x10^6/uL (3.50-5.40) Hemoglobin 9.5g/dL (12.0-15.5) 9.1g/dL (12.0-15.5) Hematocrit 29.7% (36.0-47.0) 27.6% (36.0-47.0) Mean Corpuscular Volume 80fL (79-100) 79fL (79-100) Mean Corpuscular Hemoglobin 26pg (25-35) 26pg (25-35) Mean Corpuscular Hemoglobin Concent 32g/dL (31-37) 33g/dL (31-37) Red Cell Distribution Width 15.8% (11.5-14.5) 15.7% (11.5-14.5) Platelet Count 186x10^3/uL (140-400) 177x10^3/uL (140-400) Neutrophils (%) (Auto) 38% (31-73) 35% (31-73) Lymphocytes (%) (Auto) 50% (24-48) 52% (24-48) Monocytes (%) (Auto) 11% (0-9) 12% (0-9) Eosinophils (%) (Auto) 0% (0-3) 1% (0-3) Basophils (%) (Auto) 1% (0-3) 1% (0-3) Neutrophils # (Auto) 1.9x10^3uL (1.8-7.7) 1.5x10^3uL (1.8-7.7) Lymphocytes # (Auto) 2.6x10^3/uL (1.0-4.8) 2.2x10^3/uL (1.0-4.8) Monocytes # (Auto) 0.6x10^3/uL (0.0-1.1) 0.5x10^3/uL (0.0-1.1) Eosinophils # (Auto) 0.0x10^3/uL (0.0-0.7) 0.0x10^3/uL (0.0-0.7) Basophils # (Auto) 0.0x10^3/uL (0.0-0.2) 0.0x10^3/uL (0.0-0.2) Sodium Level 133mmol/L (136-145) 131mmol/L (136-145) Potassium Level 5.5mmol/L (3.5-5.1) 4.9mmol/L (3.5-5.1) Chloride Level 102mmol/L (98-107) 101mmol/L (98-107) Carbon Dioxide Level 25mmol/L (21-32) 24mmol/L (21-32) Anion Gap 6 (6-14) 6 (6-14) Blood Urea Nitrogen 45mg/dL (7-20) 38mg/dL (7-20) Creatinine 1.7mg/dL (0.6-1.0) 1.7mg/dL (0.6-1.0) Estimated GFR (Cockcroft-Gault) 37.1 37.1 BUN/Creatinine Ratio 26 (6-20) 22 (6-20) Glucose Level 149mg/dL (70-99) 206mg/dL (70-99) Calcium Level 9.8mg/dL (8.5-10.1) 9.3mg/dL (8.5-10.1) Total Bilirubin 0.4mg/dL (0.2-1.0) 0.3mg/dL (0.2-1.0) Aspartate Amino Transf (AST/SGOT) 97U/L (15-37) 75U/L (15-37) Alanine Aminotransferase (ALT/SGPT) 68U/L (14-59) 61U/L (14-59) Alkaline Phosphatase 435U/L (46-116) 369U/L (46-116) Creatine Kinase 101U/L (26-192) Creatine Kinase MB (Mass) 1.4ng/mL (0.0-3.6) Creatine Kinase MB Relative Index 1.4% (0-4) Troponin I Quantitative 0.263ng/mL (0.000-0.055) 0.240ng/mL (0.000-0.055) C-Reactive Protein, Quantitative 3.3mg/L (0-3.3) Total Protein 9.2g/dL (6.4-8.2) 8.7g/dL (6.4-8.2) Albumin 3.4g/dL (3.4-5.0) 2.8g/dL (3.4-5.0) Albumin/Globulin Ratio 0.6 (1.0-1.7) 0.5 (1.0-1.7) Lipase 370U/L (73-393) Magnesium Level 2.3mg/dL (1.8-2.4) Triglycerides Level 91mg/dL (0-150) Cholesterol Level 145mg/dL (0-200) LDL Cholesterol, Calculated 79mg/dL (0-100) VLDL Cholesterol, Calculated 18mg/dL (0-40) Non-HDL Cholesterol Calculated 97mg/dL (0-129) HDL Cholesterol 48mg/dL (40-60) Cholesterol/HDL Ratio 3.0 Thyroid Stimulating Hormone (TSH) 2.476uIU/mL (0.358-3.74) Glucose (Fingerstick) 166mg/dL (70-99) Test 10/14/16 10:23 Glucose (Fingerstick) 146mg/dL (70-99) Medications Current Medications Aspirin (Ecotrin) 325 mg 1X ONCE PO Last administered on 10/13/16t 21:40; Start 10/13/16 at 21:30; Stop 10/13/16 at 21:31; Status DC Nitroglycerin (Nitrostat) 0.4 mg PRN Q5MIN PRN SL CHEST PAIN; Start 10/13/16 at 21:15; Stop 10/13/16 at 22:42; Status DC Ondansetron HCl (Zofran) 4 mg PRN Q8HRS PRN IV NAUSEA/VOMITING; Start 10/13/16 at 22:45; Stop 10/14/16 at 22:44 Morphine Sulfate 2 mg PRN Q2HR PRN IV SEVERE PAIN; Start 10/13/16 at 22:45; Stop 10/14/16 at 22:44 Nitroglycerin (Nitrostat) 0.4 mg PRN Q5MIN PRN SL CHEST PAIN; Start 10/13/16 at 22:45; Stop 10/14/16 at 22:44 Polyethylene Glycol (miraLAX PACKET) 17 gm DAILY PO ; Start 10/14/16 at 09:00; Stop 10/14/16 at 11:55; Status DC Polyethylene Glycol (miraLAX PACKET) 17 gm PRN DAILY PRN PO CONSTIPATION; Start 10/13/16 at 23:45 Polyethylene Glycol (miraLAX PACKET) 17 gm 1X ONCE PO Last administered on t 00:47; Start 10/14/16 at 00:30; Stop 10/14/16 at 00:31; Status DC Docusate Sodium (Colace) 100 mg DAILY PO ; Start 10/14/16 at 09:00 Magnesium Hydroxide (Milk Of Magnesia) 2,400 mg PRN DAILY PRN PO CONSTIPATION; Start 10/13/16 at 23:45 Simethicone (Gas-X) 80 mg PRN AFTMEALHC PRN PO GAS / BLOATING; Start 10/13/16 at 23:45 Aspirin (Children'S Aspirin) 81 mg DAILY PO ; Start 10/14/16 at 09:00 Carvedilol (Coreg) 6.25 mg DAILYWBKFT PO ; Start 10/14/16 at 08:00 Cyanocobalamin (Vitamin B-12) 500 mcg DAILY PO ; Start 10/14/16 at 09:00 Furosemide (Lasix) 40 mg DAILY PO ; Start 10/14/16 at 09:00 Metformin HCl (Glucophage) 1,000 mg BID PO ; Start 10/14/16 at 09:00; Status UNV Metoclopramide HCl (Reglan) 5 mg DAILY PO ; Start 10/14/16 at 09:00 Ascorbic Acid (Vitamin C) 500 mg DAILY PO ; Start 10/14/16 at 09:00 Gabapentin (Neurontin) 600 mg BID PO ; Start 10/14/16 at 09:00 Insulin Aspart (Novolog) 3 units TIDAC SQ ; Start 10/14/16 at 07:30 Insulin Detemir (Levemir) 10 units QHS SQ ; Start 10/14/16 at 21:00 Oxybutynin Chloride (Ditropan) 5 mg DAILY PO ; Start 10/14/16 at 09:00 Acetaminophen/ Hydrocodone Bitart (Lortab 5/325) 1 tab PRN Q6HRS PRN PO SEVERE PAIN Last administered on 10/14/16t 09:11; Start 10/14/16 at 00:15 Lubiprostone (Amitiza) 8 mcg BIDWMEALS PO ; Start 10/14/16 at 08:00; Stop at 11:55; Status DC Sodium Biphosphate/ Sodium Phosphate (Fleet Adult) 133 ml PRN DAILY PRN WI CONSTIPATION; Start 10/13/16 at 23:45 Lubiprostone (Amitiza) 24 mcg BIDWMEALS PO ; Start 10/14/16 at 17:00 Polyethylene Glycol (miraLAX PACKET) 17 gm BID PO ; Start 10/14/16 at 21:00 Bisacodyl (Dulcolax Supp) 10 mg PRN DAILY PRN [place] CONSTIPATION; Start 10/14/16 at 12:00 Pantoprazole Sodium 40 mg 40 mg DAILYAC PO ; Start 10/14/16 at 12:00 Magnesium Sulfate/ Dextrose (Magnesium Sulfate PREMIX 2GM) 50 ml @ 25 mls/hr PRN DAILY PRN IV for Mag < 1.7 on am labs; Start 10/14/16 at 12:30 Active Scripts Active Miralax (Polyethylene Glycol 3350) 17 Gm Powd.pack 17 Packet PO DAILY Colace (Docusate Sodium) 100 Mg Capsule 1 Cap PO BID [Hydrocodone/Acetaminophen] 1 TAB Tablet 1 Tab PO PRN Q6HRS PRN Reported Premarin (Estrogens, Conjugated) 30 Gm Cream.appl 1 Kristal VG 3X/WEEK Cyclobenzaprine Hcl 10 Mg Tablet 1 Tab PO QHS Losartan Potassium 100 Mg Tablet 100 Mg PO DAILY Oxybutynin Chloride Er (Oxybutynin Chloride) 5 Mg Tab.er.24 1 Tab PO DAILY Furosemide 40 Mg Tablet 1 Tab PO DAILY Gabapentin 300 Mg Capsule 600 Mg PO TID Vitamin B-12 (Cyanocobalamin (Vitamin B-12)) 1,000 Mcg Tablet 500 Mcg PO DAILY Lantus Solostar (Insulin Glargine,Hum.rec.anlog) 100 Unit/1 Ml Insuln.pen 10 Unit SQ QHS Novolog (Insulin Aspart) 100 Unit/1 Ml Cartridge 3 Unit SQ TIDAC Aspirin 81 Mg Tab.chew 81 Mg PO Carvedilol 6.25 Mg Tablet 6.25 Mg PO DAILY Metformin Hcl 500 Mg Tablet 1,000 Mg PO BID Calcium Citrate - Vit D3 Tab (Calcium Citrate/Vitamin D3) 1 Each Tablet 1 Each PO Vitals/I & O Vital Sign - Last 24 Hours 10/13/16 10/13/16 10/13/16 10/13/16 19:40 20:11 20:41 21:11 Temp 96.4 96.4 Pulse 83 76 75 71 Resp B/P 139/73 135/78 144/69 157/76 Pulse Ox 98 94 94 94 O2 Delivery Room Air Room Air Room Air Room Air 10/13/16 10/13/16 10/13/16 10/13/16 21:41 22:11 22:46 23:16 Pulse 76 73 81 79 Resp 18 B/P 147/77 156/74 164/77 159/95 Pulse Ox 94 95 95 95 O2 Delivery Room Air Room Air Room Air Room Air 10/14/16 10/14/16 10/14/16 10/14/16 01:07 01:07 01:44 03:30 Temp 97.6 97.6 97.8 97.6 97.6 97.8 Pulse 76 76 73 Resp 20 B/P 175/58 175/58 170/70 Pulse Ox 94 94 99 O2 Delivery Room Air Room Air Room Air Room Air 10/14/16 10/14/16 10/14/16 10/14/16 03:35 07:30 09:11 10:20 Temp 98.1 98.4 98.1 98.4 Pulse 70 80 Resp 19 B/P 119/68 113/64 Pulse Ox 98 97 O2 Delivery Room Air Room Air Room Air Room Air Intake and Output 10/13/16 10/13/16 10/14/16 15:00 23:00 07:00 Intake Total 0 ml Balance 0 ml BULMARO HAIRSTON III DO Oct 14, 2016 12:30
[2016-10-14] MEDS: POLYETHYLENE GLYCOL 3350 17 GM PACKET. PO SCH (13:17)
[2016-10-14] MEDS: CYANOCOBALAMIN (VITAMIN B-12) 1,000 MCG TABLET. PO SCH (13:19)
[2016-10-14] MEDS: METOCLOPRAMIDE 5 MG TABLET. PO SCH (13:19)
[2016-10-14] MEDS: CARVEDILOL 6.25 MG TABLET. PO SCH (13:20)
[2016-10-14] MEDS: ASPIRIN CHEWABLE 81 MG TABLET. PO SCH (13:20)
[2016-10-14] MEDS: PANTOPRAZOLE 40 MG TABLET.DR. PO SCH (13:20)
[2016-10-14] MEDS: OXYBUTYNIN CHLORIDE 5 MG TABLET PO SCH (13:20)
[2016-10-14] MEDS: ASCORBIC ACID 500 MG TABLET PO SCH (13:21)
[2016-10-14] MEDS: GABAPENTIN 300 MG CAPSULE. PO SCH ×2 (13:21→17:27)
[2016-10-14] MEDS: DOCUSATE SODIUM 100 MG CAPSULE. PO SCH (13:21)
[2016-10-14 13:23] LABS: % SAT IRON 30 % (15-34); IRON,SERUM 55 ug/dL (50-170)
--- NOTE | 2016-10-14 13:45 | RAD ---
Exam: AP portable chest. History: Chest pain. Comparison: 07/14/2015. Findings: The heart and mediastinal structures are within normal limits for size. Lungs are without infiltrate. No pneumothorax or pleural effusion is appreciated. Impression: 1. No acute cardiopulmonary process.
--- NOTE | 2016-10-14 13:52 | CARD ---
APPROVED REPORT EXAM: Two-dimensional and M-mode echocardiogram with Doppler and color Doppler. Other Information Quality : Good INDICATION Chest Pain 2D DIMENSIONS RVDd3.3 (2.9-3.5cm)Left Atrium(2D)3.8 (1.6-4.0cm) IVSd1.5 (0.7-1.1cm)Aortic Root(2D)3.0 (2.0-3.7cm) LVDd4.3 (3.9-5.9cm)LVOT Diameter2.1 (1.8-2.4cm) PWd1.4 (0.7-1.1cm)LVDs3.8 (2.5-4.0cm) FS (%) 11.4 %SV20.5 ml LVEF(%)25.0 (>50%) Aortic Valve AoV Peak Manuel.119.0cm/sAoV VTI15.8cm AO Peak GR.5.7mmHgLVOT Peak Manuel.64.5cm/s AO Mean GR.3mmHgAVA (VMAX)1.84cm2 BENEDICTO (VTI)2.01co1DY P 1/2 [id number] Mitral Valve MV E Uayezdez30.0cm/sMV E Peak Gr.4mmHg MV DECEL [id number] A Gjpejdmg459.9cm/s MV E Mean Gr.1mmHgE/A Ratio0.6 Tricuspid Valve TR P. Dtrolnla065ox/sRAP NEECEWAD0qdNn TR Peak Gr.15eqVqOVFT12gvSu LEFT VENTRICLE The left ventricle is normal size. There is mild concentric left ventricular hypertrophy. The Ejectio n Fraction is 20%. There is severe global hypokinesis of the left ventricle. Tissue Doppler imaging r eveals moderate left ventricular diastolic dysfunction. RIGHT VENTRICLE The right ventricle is normal size. The right ventricular systolic function is normal. ATRIA The left atrium size is normal. The right atrium size is normal. The interatrial septum is intact wit h no evidence for an atrial septal defect or patent foramen ovale as noted on 2-D or Doppler imaging. AORTIC VALVE The aortic valve is calcified but opens well. Doppler and Color Flow revealed mild aortic regurgitati on. There is no significant aortic valvular stenosis. MITRAL VALVE The mitral valve is calcified and displays decreased opening. Posterior mitral annular calcification is moderate to severe. There is no evidence of mitral valve prolapse. There is mild mitral valve sten osis. Calculated mitral valve area is 1.6 cm2 with maximum pressure gradient of 7 mmHg and mean press ure gradient of 2 mmHg. Doppler and Color Flow revealed no mitral valve regurgitation noted. TRICUSPID VALVE The tricuspid valve is normal in structure and function. Doppler and Color Flow revealed trace tricus pid regurgitation. There is moderate pulmonary hypertension. The PA pressure was estimated at 43 mmHg . There is no tricuspid valve stenosis. PULMONIC VALVE Doppler and Color Flow revealed trace pulmonic valvular regurgitation. There is no pulmonic valvular stenosis. GREAT VESSELS The aortic root is normal in size. The ascending aorta is normal in size. The IVC is normal in size a nd collapses >50% with inspiration. PERICARDIAL EFFUSION There is a trace circumferential pericardial effusion. Critical Notification Critical Value: No <Conclusion> The Ejection Fraction is 20%. There is severe global hypokinesis of the left ventricle. The mitral valve is calcified and displays decreased opening. Posterior mitral annular calcification is moderate to severe. Doppler and Color Flow revealed trace tricuspid regurgitation. There is moderate pulmonary hypertensi on. The PA pressure was estimated at 43 mmHg. There is a trace circumferential pericardial effusion.
[2016-10-14] MEDS: LUBIPROSTONE 8 MCG CAPSULE PO SCH (17:27)
[2016-10-14] MEDS ORDERED: INSULIN DETEMIR 300 UNITS/3 ML INSULN.PEN. SQ SCH (21:00)
[2016-10-14] MEDS: INSULIN DETEMIR 300 UNITS/3 ML INSULN.PEN. SQ SCH (21:06)
[2016-10-14 23:13] LABS: HEP A IGM ABDY Negative (Negative)
--- NOTE | 2016-10-15 02:08 | CONS ---
DATE OF CONSULTATION: PRIMARY PHYSICIAN: Dr. Chawla. REASON FOR CONSULTATION: Elevated creatinine and hyperkalemia. HISTORY OF PRESENT ILLNESS: The patient is a 61-year-old -[place] female followed by Dr. Lopez. She had been informed about a year ago that she has had some proteinuria. She apparently was also noted to have early diabetic retinopathy based on her eye checkup about a year ago. She presented to the ER with abdominal pain and chest pain. She underwent a CT scan of her abdomen. She that she had not had a bowel movement for approximately a week prior to her arrival here. She has had a bowel movement with a bowel regimen and has been doing well with that and does feel relieved. Her abdominal pain is much better. She was known to have a mildly elevated potassium on admission. Home list of medication show patient was on losartan. 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 FAMILY HISTORY: Negative for known kidney problems. Diabetes and cardiovascular problems run in the family. For rest of details, see electronic records. INGRID LOMBARDI MD DR: HEMANTH/king JOB#: [id number] / [id number]
[2016-10-15 03:11] VITALS: BP 145/73
[2016-10-15 04:16] LABS: PTH INTACT 101 pg/mL (15-65)
[2016-10-15 06:12] LABS: BASO % 1 % (0-3); EOS % 1 % (0-3); HEMATOCRIT 27.1 % (36.0-47.0); HEMOGLOBIN 8.7 g/dL (12.0-15.5); LYMPH # 2.3 x10^3/uL (1.0-4.8); LYMPH % 52 % (24-48); MEAN CORPUSCULAR HEMOGLOBIN 26 pg (25-35); MEAN CORPUSCULAR HGB CONC 32 g/dL (31-37); MEAN CORPUSCULAR VOLUME 80 fL (79-100); MONO % 13 % (0-9); NEUT % 34 % (31-73); PLATELET COUNT 164 x10^3/uL (140-400); RED BLOOD COUNT 3.38 x10^6/uL (3.50-5.40); RED CELL DISTRIBUTION WIDTH 16.1 % (11.5-14.5); WHITE BLOOD COUNT 4.5 x10^3/uL (4.0-11.0)
[2016-10-15 06:44] LABS: ALBUMIN 2.9 g/dL (3.4-5.0); CALCIUM 9.3 mg/dL (8.5-10.1); CREATININE 1.8 mg/dL (0.6-1.0); GFR 34.7; PHOSPHORUS 4.2 mg/dL (2.6-4.7)
[2016-10-15 06:47] LABS: POTASSIUM 5.7 mmol/L (3.5-5.1)
[2016-10-15 07:00] VITALS: BP 102/53
[2016-10-15] MEDS: PANTOPRAZOLE 40 MG TABLET.DR. PO SCH (08:31)
[2016-10-15] MEDS: POLYETHYLENE GLYCOL 3350 17 GM PACKET. PO SCH ×2 (08:31→21:01)
[2016-10-15] MEDS: LUBIPROSTONE 8 MCG CAPSULE PO SCH ×2 (08:31→17:31)
[2016-10-15] MEDS: CARVEDILOL 6.25 MG TABLET. PO SCH (08:32)
[2016-10-15] MEDS: ASPIRIN CHEWABLE 81 MG TABLET. PO SCH (08:32)
[2016-10-15] MEDS: ASCORBIC ACID 500 MG TABLET PO SCH (08:32)
[2016-10-15] MEDS: DOCUSATE SODIUM 100 MG CAPSULE. PO SCH (08:33)
[2016-10-15] MEDS: CYANOCOBALAMIN (VITAMIN B-12) 1,000 MCG TABLET. PO SCH (08:33)
[2016-10-15] MEDS: METOCLOPRAMIDE 5 MG TABLET. PO SCH (08:33)
[2016-10-15] MEDS: OXYBUTYNIN CHLORIDE 5 MG TABLET PO SCH (08:33)
[2016-10-15] MEDS: INSULIN ASPART 300 UNITS/3 ML INSULN.PEN SQ SCH ×3 (08:39→17:34)
[2016-10-15] MEDS: GABAPENTIN 300 MG CAPSULE. PO SCH ×3 (09:00→21:01)
--- NOTE | 2016-10-15 10:44 | PDOC ---
GI PROGRESS NOTES Date Date/Time DATE: 10/15/16 TIME: 10:41 Objective Vitals Vital Signs Date Time Temp Pulse Resp B/P Pulse Ox O2 Delivery O2 Flow Rate FiO2 10/15/16 08:32 73 102/53 10/15/16 08:10 Room Air 10/15/16 07:00 97.5 66 16 102/53 96 Room Air 97.5 10/15/16 03:11 97.9 69 16 145/73 100 Room Air 97.9 10/14/16 22:15 97.7 68 16 139/58 96 Room Air 97.7 10/14/16 19:40 Room Air 10/14/16 19:14 97.5 68 16 100/56 97 Room Air 97.5 10/14/16 14:47 97.4 66 18 121/62 97 Room Air 97.4 10/14/16 13:21 Room Air 10/14/16 13:20 80 113/64 Objective small BM Labs Labs Laboratory Tests Test 10/14/16 11:25 10/14/16 12:50 10/14/16 16:47 10/14/16 20:51 Nasal Screen MRSA (PCR) Negative (Negative) Reticulocyte Count (auto) 1.0% (0.5-2.5) Estimated GFR (Non- 34 (>59) Iron Level 55ug/dL (50-170) Total Iron Binding Capacity 183ug/dL (250-450) Iron Saturation 30% (15-34) Ferritin 1348ng/mL (8-252) EGFR 39 (>59) PTH (Intact) Specimen Description Comment (.) Parathyroid Hormone (Intact) 101pg/mL (15-65) Calcium (PTH Intact) 9.4mg/dL (8.7-10.3) Creatinine (PTH Intact) 1.64mg/dL (0.57-1.00) Phosphorus (PTH Intact) 3.9mg/dL (2.5-4.5) Hepatitis A IgM Antibody Negative (Negative) Hepatitis B Surface Antigen Negative (Negative) Hepatitis B Core IgM Antibody Negative (Negative) Hepatitis C Antibody 0.1s/co ratio (0.0-0.9) Glucose (Fingerstick) 228mg/dL (70-99) 164mg/dL (70-99) Test 10/15/16 05:00 10/15/16 08:16 White Blood Count 4.5x10^3/uL (4.0-11.0) Red Blood Count 3.38x10^6/uL (3.50-5.40) Hemoglobin 8.7g/dL (12.0-15.5) Hematocrit 27.1% (36.0-47.0) Mean Corpuscular Volume 80fL (79-100) Mean Corpuscular Hemoglobin 26pg (25-35) Mean Corpuscular Hemoglobin Concent 32g/dL (31-37) Red Cell Distribution Width 16.1% (11.5-14.5) Platelet Count 164x10^3/uL (140-400) Neutrophils (%) (Auto) 34% (31-73) Lymphocytes (%) (Auto) 52% (24-48) Monocytes (%) (Auto) 13% (0-9) Eosinophils (%) (Auto) 1% (0-3) Basophils (%) (Auto) 1% (0-3) Neutrophils # (Auto) 1.5x10^3uL (1.8-7.7) Lymphocytes # (Auto) 2.3x10^3/uL (1.0-4.8) Monocytes # (Auto) 0.6x10^3/uL (0.0-1.1) Eosinophils # (Auto) 0.0x10^3/uL (0.0-0.7) Basophils # (Auto) 0.0x10^3/uL (0.0-0.2) Sodium Level 136mmol/L (136-145) Potassium Level 5.7mmol/L (3.5-5.1) Chloride Level 103mmol/L (98-107) Carbon Dioxide Level 25mmol/L (21-32) Anion Gap 8 (6-14) Blood Urea Nitrogen 42mg/dL (7-20) Creatinine 1.8mg/dL (0.6-1.0) Estimated GFR (Cockcroft-Gault) 34.7 Glucose Level 140mg/dL (70-99) Calcium Level 9.3mg/dL (8.5-10.1) Phosphorus Level 4.2mg/dL (2.6-4.7) Magnesium Level 2.4mg/dL (1.8-2.4) Albumin 2.9g/dL (3.4-5.0) Glucose (Fingerstick) 121mg/dL (70-99) Physical Exam Physical Exam Chest clear abd- soft non tender Assessment Assessment Constipation- post surgery - possibly related to pain meds, diet etc- only midl constipation before surgery- now on Miralax and amitiza 24 BID- should should for response- prior colonoscopy - report pending Abn LFTs- stable at this point- presumed from fatty liver- monitor and further w/u only if trending upward Problems: Plan Plan continue miralax and amitza with prn ducolax supp monitor labs MARIA ESTHER COREY MD Oct 15, 2016 10:44
[2016-10-15 11:30] VITALS: BP 109/64
[2016-10-15] MEDS ORDERED: SODIUM POLYSTYRENE SULFONATE 15 GM/60 ML ORAL.SUSP. PO ONE (15:00)
[2016-10-15] MEDS ORDERED: MAGNESIUM CITRATE 296 ML SOLUTION. PO ONE (15:00)
--- NOTE | 2016-10-15 15:02 | PDOC ---
PROGRESS NOTES Chief Complaint Chief Complaint cc: chest pain, abdominal pain. s/p L 2nd toe amputation Diabetes Mellitus type II chronic diastolic CHF CAD prior pacemaker with subsequent removal ASHLEY/CKD, creatinine of 1.7 on admission HTN GERD osteoarthritis History of Present Illness History of Present Illness Patient seen and evaluated at bedside. Patient reports minimal improvement for her abdominal discomfort with bloating and nausea. Per nursing, patient did have a small bowel movement overnight. d/w nurse about plan of care. Vitals Vitals Vital Signs Date Time Temp Pulse Resp B/P Pulse Ox O2 Delivery O2 Flow Rate FiO2 10/15/16 11:30 97.7 73 20 109/64 93 Room Air 97.7 Physical Exam General: Alert, Oriented X3, Cooperative, No acute distress Heart: Regular rate (SR with LBBB), Normal S1, Normal S2, Other (2/6 systolic murmur to LLS border) Lungs: Clear, Other (diminished inspiratory effort. negative chest retractions and/or accessory muscle use. ) Abdomen: Soft, Other (diffuse tenderness to palpation. Negative peritoneal signs. ) Extremities: No cyanosis, No edema Skin: No breakdown, Other (left toe surigical wound. dressing clean, dry, and intact ) Labs LABS Laboratory Tests Test 10/14/16 16:47 10/14/16 20:51 10/15/16 05:00 10/15/16 08:16 Glucose (Fingerstick) 228mg/dL (70-99) 164mg/dL (70-99) 121mg/dL (70-99) White Blood Count 4.5x10^3/uL (4.0-11.0) Red Blood Count 3.38x10^6/uL (3.50-5.40) Hemoglobin 8.7g/dL (12.0-15.5) Hematocrit 27.1% (36.0-47.0) Mean Corpuscular Volume 80fL (79-100) Mean Corpuscular Hemoglobin 26pg (25-35) Mean Corpuscular Hemoglobin Concent 32g/dL (31-37) Red Cell Distribution Width 16.1% (11.5-14.5) Platelet Count 164x10^3/uL (140-400) Neutrophils (%) (Auto) 34% (31-73) Lymphocytes (%) (Auto) 52% (24-48) Monocytes (%) (Auto) 13% (0-9) Eosinophils (%) (Auto) 1% (0-3) Basophils (%) (Auto) 1% (0-3) Neutrophils # (Auto) 1.5x10^3uL (1.8-7.7) Lymphocytes # (Auto) 2.3x10^3/uL (1.0-4.8) Monocytes # (Auto) 0.6x10^3/uL (0.0-1.1) Eosinophils # (Auto) 0.0x10^3/uL (0.0-0.7) Basophils # (Auto) 0.0x10^3/uL (0.0-0.2) Sodium Level 136mmol/L (136-145) Potassium Level 5.7mmol/L (3.5-5.1) Chloride Level 103mmol/L (98-107) Carbon Dioxide Level 25mmol/L (21-32) Anion Gap 8 (6-14) Blood Urea Nitrogen 42mg/dL (7-20) Creatinine 1.8mg/dL (0.6-1.0) Estimated GFR (Cockcroft-Gault) 34.7 Glucose Level 140mg/dL (70-99) Calcium Level 9.3mg/dL (8.5-10.1) Phosphorus Level 4.2mg/dL (2.6-4.7) Magnesium Level 2.4mg/dL (1.8-2.4) Albumin 2.9g/dL (3.4-5.0) Test 10/15/16 11:22 Glucose (Fingerstick) 110mg/dL (70-99) Review of Systems Review of Systems (+) diffuse abdominal pain (+) constipation (+) generalized weakness. Denies chest pain, palpitations, sob, n/v, lightheadedness/dizziness, or fever/ chills. Assessment and Plan Assessmemt and Plan Problems Medical Problems: (1) Abdominal pain Status: Acute (2) Chest pain Status: Acute (3) Elevated troponin Status: Acute Assessment: 1.) constipation, suspect narcotic induced 2.) chest pain, currently resolved. 3.) CAD, significant lesions but nonobstructive per [facility] 06/2015. 4.) hyperkalemia 5.) ASHLEY/CKD, creatinine downtrending 6.) Chronic diastolic CHF 7.) HTN 8.) Recent L 2nd toe amputation secondary to osteomyelitis 9.) Diabetes mellitus type II 10.) chronic LBBB 11.) transaminitis, with elevated alkaline phosphatase. 12.) normocytic, normochromic anemia Plan: 1.) continue bowel regimen and increased Amitiza, per GI. added magnesium citrate for symptomatic relief. 2.) Monitor AM labs 3.) maintenance fluids, per nephrology 4.) continue home medications as appropriate. Glucose checks AC, consider SSI if required. 5.) added Kayexalate for hyperkalemia 6.) PT/OT 7.) appreciate subspecialty input. Problems: Comment Review of Relevant I have reviewed the following items bro (where applicable) has been applied. Labs Laboratory Tests Test 10/13/16 19:50 10/13/16 20:25 10/14/16 05:50 10/14/16 07:32 Urine Collection Type Unknown Urine Color Yellow Urine Clarity Clear Urine pH 6.5 Urine Specific [place] 1.015 Urine Protein 100mg/dL (NEG-TRACE) Urine Glucose (UA) Negativemg/dL (NEG) Urine Ketones (Stick) Negativemg/dL (NEG) Urine Blood Negative (NEG) Urine Nitrite Negative (NEG) Urine Bilirubin Negative (NEG) Urine Urobilinogen Dipstick 0.2mg/dL (0.2 mg/dL) Urine Leukocyte Esterase Trace (NEG) Urine RBC Occ/HPF (0-2) Urine WBC 5-10/HPF (0-4) Urine Squamous Epithelial Cells Many/LPF Urine Bacteria Few/HPF (0-FEW) Urine Hyaline Casts Occasional/HPF Urine Mucus Slight/LPF White Blood Count 5.1x10^3/uL (4.0-11.0) 4.2x10^3/uL (4.0-11.0) Red Blood Count 3.71x10^6/uL (3.50-5.40) 3.51x10^6/uL (3.50-5.40) Hemoglobin 9.5g/dL (12.0-15.5) 9.1g/dL (12.0-15.5) Hematocrit 29.7% (36.0-47.0) 27.6% (36.0-47.0) Mean Corpuscular Volume 80fL (79-100) 79fL (79-100) Mean Corpuscular Hemoglobin 26pg (25-35) 26pg (25-35) Mean Corpuscular Hemoglobin Concent 32g/dL (31-37) 33g/dL (31-37) Red Cell Distribution Width 15.8% (11.5-14.5) 15.7% (11.5-14.5) Platelet Count 186x10^3/uL (140-400) 177x10^3/uL (140-400) Neutrophils (%) (Auto) 38% (31-73) 35% (31-73) Lymphocytes (%) (Auto) 50% (24-48) 52% (24-48) Monocytes (%) (Auto) 11% (0-9) 12% (0-9) Eosinophils (%) (Auto) 0% (0-3) 1% (0-3) Basophils (%) (Auto) 1% (0-3) 1% (0-3) Neutrophils # (Auto) 1.9x10^3uL (1.8-7.7) 1.5x10^3uL (1.8-7.7) Lymphocytes # (Auto) 2.6x10^3/uL (1.0-4.8) 2.2x10^3/uL (1.0-4.8) Monocytes # (Auto) 0.6x10^3/uL (0.0-1.1) 0.5x10^3/uL (0.0-1.1) Eosinophils # (Auto) 0.0x10^3/uL (0.0-0.7) 0.0x10^3/uL (0.0-0.7) Basophils # (Auto) 0.0x10^3/uL (0.0-0.2) 0.0x10^3/uL (0.0-0.2) Sodium Level 133mmol/L (136-145) 131mmol/L (136-145) Potassium Level 5.5mmol/L (3.5-5.1) 4.9mmol/L (3.5-5.1) Chloride Level 102mmol/L (98-107) 101mmol/L (98-107) Carbon Dioxide Level 25mmol/L (21-32) 24mmol/L (21-32) Anion Gap 6 (6-14) 6 (6-14) Blood Urea Nitrogen 45mg/dL (7-20) 38mg/dL (7-20) Creatinine 1.7mg/dL (0.6-1.0) 1.7mg/dL (0.6-1.0) Estimated GFR (Cockcroft-Gault) 37.1 37.1 BUN/Creatinine Ratio 26 (6-20) 22 (6-20) Glucose Level 149mg/dL (70-99) 206mg/dL (70-99) Calcium Level 9.8mg/dL (8.5-10.1) 9.3mg/dL (8.5-10.1) Total Bilirubin 0.4mg/dL (0.2-1.0) 0.3mg/dL (0.2-1.0) Aspartate Amino Transf (AST/SGOT) 97U/L (15-37) 75U/L (15-37) Alanine Aminotransferase (ALT/SGPT) 68U/L (14-59) 61U/L (14-59) Alkaline Phosphatase 435U/L (46-116) 369U/L (46-116) Creatine Kinase 101U/L (26-192) Creatine Kinase MB (Mass) 1.4ng/mL (0.0-3.6) Creatine Kinase MB Relative Index 1.4% (0-4) Troponin I Quantitative 0.263ng/mL (0.000-0.055) 0.240ng/mL (0.000-0.055) C-Reactive Protein, Quantitative 3.3mg/L (0-3.3) Total Protein 9.2g/dL (6.4-8.2) 8.7g/dL (6.4-8.2) Albumin 3.4g/dL (3.4-5.0) 2.8g/dL (3.4-5.0) Albumin/Globulin Ratio 0.6 (1.0-1.7) 0.5 (1.0-1.7) Lipase 370U/L (73-393) Magnesium Level 2.3mg/dL (1.8-2.4) Triglycerides Level 91mg/dL (0-150) Cholesterol Level 145mg/dL (0-200) LDL Cholesterol, Calculated 79mg/dL (0-100) VLDL Cholesterol, Calculated 18mg/dL (0-40) Non-HDL Cholesterol Calculated 97mg/dL (0-129) HDL Cholesterol 48mg/dL (40-60) Cholesterol/HDL Ratio 3.0 Thyroid Stimulating Hormone (TSH) 2.476uIU/mL (0.358-3.74) Glucose (Fingerstick) 166mg/dL (70-99) Test 10/14/16 10:23 10/14/16 11:25 10/14/16 12:50 10/14/16 16:47 Glucose (Fingerstick) 146mg/dL (70-99) 228mg/dL (70-99) Nasal Screen MRSA (PCR) Negative (Negative) Reticulocyte Count (auto) 1.0% (0.5-2.5) Estimated GFR (Non- 34 (>59) Iron Level 55ug/dL (50-170) Total Iron Binding Capacity 183ug/dL (250-450) Iron Saturation 30% (15-34) Ferritin 1348ng/mL (8-252) EGFR 39 (>59) PTH (Intact) Specimen Description Comment (.) Parathyroid Hormone (Intact) 101pg/mL (15-65) Calcium (PTH Intact) 9.4mg/dL (8.7-10.3) Creatinine (PTH Intact) 1.64mg/dL (0.57-1.00) Phosphorus (PTH Intact) 3.9mg/dL (2.5-4.5) Hepatitis A IgM Antibody Negative (Negative) Hepatitis B Surface Antigen Negative (Negative) Hepatitis B Core IgM Antibody Negative (Negative) Hepatitis C Antibody 0.1s/co ratio (0.0-0.9) Test 10/14/16 20:51 10/15/16 05:00 10/15/16 08:16 10/15/16 11:22 Glucose (Fingerstick) 164mg/dL (70-99) 121mg/dL (70-99) 110mg/dL (70-99) White Blood Count 4.5x10^3/uL (4.0-11.0) Red Blood Count 3.38x10^6/uL (3.50-5.40) Hemoglobin 8.7g/dL (12.0-15.5) Hematocrit 27.1% (36.0-47.0) Mean Corpuscular Volume 80fL (79-100) Mean Corpuscular Hemoglobin 26pg (25-35) Mean Corpuscular Hemoglobin Concent 32g/dL (31-37) Red Cell Distribution Width 16.1% (11.5-14.5) Platelet Count 164x10^3/uL (140-400) Neutrophils (%) (Auto) 34% (31-73) Lymphocytes (%) (Auto) 52% (24-48) Monocytes (%) (Auto) 13% (0-9) Eosinophils (%) (Auto) 1% (0-3) Basophils (%) (Auto) 1% (0-3) Neutrophils # (Auto) 1.5x10^3uL (1.8-7.7) Lymphocytes # (Auto) 2.3x10^3/uL (1.0-4.8) Monocytes # (Auto) 0.6x10^3/uL (0.0-1.1) Eosinophils # (Auto) 0.0x10^3/uL (0.0-0.7) Basophils # (Auto) 0.0x10^3/uL (0.0-0.2) Sodium Level 136mmol/L (136-145) Potassium Level 5.7mmol/L (3.5-5.1) Chloride Level 103mmol/L (98-107) Carbon Dioxide Level 25mmol/L (21-32) Anion Gap 8 (6-14) Blood Urea Nitrogen 42mg/dL (7-20) Creatinine 1.8mg/dL (0.6-1.0) Estimated GFR (Cockcroft-Gault) 34.7 Glucose Level 140mg/dL (70-99) Calcium Level 9.3mg/dL (8.5-10.1) Phosphorus Level 4.2mg/dL (2.6-4.7) Magnesium Level 2.4mg/dL (1.8-2.4) Albumin 2.9g/dL (3.4-5.0) Laboratory Tests Test 10/14/16 16:47 10/14/16 20:51 10/15/16 05:00 10/15/16 08:16 Glucose (Fingerstick) 228mg/dL (70-99) 164mg/dL (70-99) 121mg/dL (70-99) White Blood Count 4.5x10^3/uL (4.0-11.0) Red Blood Count 3.38x10^6/uL (3.50-5.40) Hemoglobin 8.7g/dL (12.0-15.5) Hematocrit 27.1% (36.0-47.0) Mean Corpuscular Volume 80fL (79-100) Mean Corpuscular Hemoglobin 26pg (25-35) Mean Corpuscular Hemoglobin Concent 32g/dL (31-37) Red Cell Distribution Width 16.1% (11.5-14.5) Platelet Count 164x10^3/uL (140-400) Neutrophils (%) (Auto) 34% (31-73) Lymphocytes (%) (Auto) 52% (24-48) Monocytes (%) (Auto) 13% (0-9) Eosinophils (%) (Auto) 1% (0-3) Basophils (%) (Auto) 1% (0-3) Neutrophils # (Auto) 1.5x10^3uL (1.8-7.7) Lymphocytes # (Auto) 2.3x10^3/uL (1.0-4.8) Monocytes # (Auto) 0.6x10^3/uL (0.0-1.1) Eosinophils # (Auto) 0.0x10^3/uL (0.0-0.7) Basophils # (Auto) 0.0x10^3/uL (0.0-0.2) Sodium Level 136mmol/L (136-145) Potassium Level 5.7mmol/L (3.5-5.1) Chloride Level 103mmol/L (98-107) Carbon Dioxide Level 25mmol/L (21-32) Anion Gap 8 (6-14) Blood Urea Nitrogen 42mg/dL (7-20) Creatinine 1.8mg/dL (0.6-1.0) Estimated GFR (Cockcroft-Gault) 34.7 Glucose Level 140mg/dL (70-99) Calcium Level 9.3mg/dL (8.5-10.1) Phosphorus Level 4.2mg/dL (2.6-4.7) Magnesium Level 2.4mg/dL (1.8-2.4) Albumin 2.9g/dL (3.4-5.0) Test 10/15/16 11:22 Glucose (Fingerstick) 110mg/dL (70-99) Microbiology 10/13/16 Urine Culture - Preliminary, Resulted 10/13/16 Urine Culture Result 1 (TANJA) - Preliminary, Resulted Medications Current Medications Aspirin (Ecotrin) 325 mg 1X ONCE PO Last administered on 10/13/16 21:40; Start 10/13/16 at 21:30; Stop 10/13/16 at 21:31; Status DC Nitroglycerin (Nitrostat) 0.4 mg PRN Q5MIN PRN SL CHEST PAIN; Start 10/13/16 at 21:15; Stop 10/13/16 at 22:42; Status DC Ondansetron HCl (Zofran) 4 mg PRN Q8HRS PRN IV NAUSEA/VOMITING; Start 10/13/16 at 22:45; Stop 10/14/16 at 22:44; Status DC Morphine Sulfate 2 mg PRN Q2HR PRN IV SEVERE PAIN; Start 10/13/16 at 22:45; Stop 10/14/16 at 22:44; Status DC Nitroglycerin (Nitrostat) 0.4 mg PRN Q5MIN PRN SL CHEST PAIN; Start 10/13/16 at 22:45; Stop 10/14/16 at 22:44; Status DC Polyethylene Glycol (miraLAX PACKET) 17 gm DAILY PO ; Start 10/14/16 at 09:00; Stop 10/14/16 at 11:55; Status DC Polyethylene Glycol (miraLAX PACKET) 17 gm PRN DAILY PRN PO CONSTIPATION; Start 10/13/16 at 23:45 Polyethylene Glycol (miraLAX PACKET) 17 gm 1X ONCE PO Last administered on 00:47; Start 10/14/16 at 00:30; Stop 10/14/16 at 00:31; Status DC Docusate Sodium (Colace) 100 mg DAILY PO Last administered on 10/15/16 08:33; Start 10/14/16 at 09:00 Magnesium Hydroxide (Milk Of Magnesia) 2,400 mg PRN DAILY PRN PO CONSTIPATION; Start 10/13/16 at 23:45 Simethicone (Gas-X) 80 mg PRN AFTMEALHC PRN PO GAS / BLOATING; Start 10/13/16 at 23:45 Aspirin (Children'S Aspirin) 81 mg DAILY PO Last administered on 10/15/16 08: 32; Start 10/14/16 at 09:00 Carvedilol (Coreg) 6.25 mg DAILYWBKFT PO Last administered on 10/15/16 08:32; Start 10/14/16 at 08:00 Cyanocobalamin (Vitamin B-12) 500 mcg DAILY PO Last administered on 10/15/16 08:33; Start 10/14/16 at 09:00 Furosemide (Lasix) 40 mg DAILY PO ; Start 10/14/16 at 09:00; Stop 10/14/16 at 12 :50; Status DC Metformin HCl (Glucophage) 1,000 mg BID PO ; Start 10/14/16 at 09:00; Status UNV Metoclopramide HCl (Reglan) 5 mg DAILY PO Last administered on 10/15/16 08:33 ; Start 10/14/16 at 09:00 Ascorbic Acid (Vitamin C) 500 mg DAILY PO Last administered on 10/15/16 08:32 ; Start 10/14/16 at 09:00 Gabapentin (Neurontin) 600 mg BID PO Last administered on 10/14/16 17:27; Start 10/14/16 at 09:00 Insulin Aspart (Novolog) 3 units TIDAC SQ Last administered on 10/15/16 12:24 ; Start 10/14/16 at 07:30 Insulin Detemir (Levemir) 10 units QHS SQ ; Start 10/14/16 at 21:00; Stop at 21:00; Status DC Oxybutynin Chloride (Ditropan) 5 mg DAILY PO Last administered on 10/15/16 08: 33; Start 10/14/16 at 09:00 Acetaminophen/ Hydrocodone Bitart (Lortab 5/325) 1 tab PRN Q6HRS PRN PO SEVERE PAIN Last administered on 10/14/16 09:11; Start 10/14/16 at 00:15 Lubiprostone (Amitiza) 8 mcg BIDWMEALS PO ; Start 10/14/16 at 08:00; Stop at 11:55; Status DC Sodium Biphosphate/ Sodium Phosphate (Fleet Adult) 133 ml PRN DAILY PRN [place] CONSTIPATION; Start 10/13/16 at 23:45; Stop 10/14/16 at 12:50; Status DC Lubiprostone (Amitiza) 24 mcg BIDWMEALS PO Last administered on 10/15/16 08:31 ; Start 10/14/16 at 17:00 Polyethylene Glycol (miraLAX PACKET) 17 gm BID PO Last administered on 08:31; Start 10/14/16 at 21:00 Bisacodyl (Dulcolax Supp) 10 mg PRN DAILY PRN NV CONSTIPATION; Start 10/14/16 at 12:00 Pantoprazole Sodium 40 mg 40 mg DAILYAC PO Last administered on 10/15/16 08:31 ; Start 10/14/16 at 12:00 Magnesium Sulfate/ Dextrose (Magnesium Sulfate PREMIX 2GM) 50 ml @ 25 mls/hr PRN DAILY PRN IV for Mag < 1.7 on am labs; Start 10/14/16 at 12:30 Insulin Detemir (Levemir) 25 units QHS SQ Last administered on 10/14/16 21:06 ; Start 10/14/16 at 21:00 Active Scripts Active Miralax (Polyethylene Glycol 3350) 17 Gm Powd.pack 17 Packet PO DAILY Colace (Docusate Sodium) 100 Mg Capsule 1 Cap PO BID [Hydrocodone/Acetaminophen] 1 TAB Tablet 1 Tab PO PRN Q6HRS PRN Reported Premarin (Estrogens, Conjugated) 30 Gm Cream.appl 1 Kristal VG 3X/WEEK Cyclobenzaprine Hcl 10 Mg Tablet 1 Tab PO QHS Losartan Potassium 100 Mg Tablet 100 Mg PO DAILY Oxybutynin Chloride Er (Oxybutynin Chloride) 5 Mg Tab.er.24 1 Tab PO DAILY Furosemide 40 Mg Tablet 1 Tab PO DAILY Gabapentin 300 Mg Capsule 600 Mg PO TID Vitamin B-12 (Cyanocobalamin (Vitamin B-12)) 1,000 Mcg Tablet 500 Mcg PO DAILY Lantus Solostar (Insulin Glargine,Hum.rec.anlog) 100 Unit/1 Ml Insuln.pen 25 Unit SQ QHS Novolog (Insulin Aspart) 100 Unit/1 Ml Cartridge 3 Unit SQ TIDAC Aspirin 81 Mg Tab.chew 81 Mg PO Carvedilol 6.25 Mg Tablet 6.25 Mg PO DAILY Metformin Hcl 500 Mg Tablet 1,000 Mg PO BID Calcium Citrate - Vit D3 Tab (Calcium Citrate/Vitamin D3) 1 Each Tablet 1 Each PO Vitals/I & O Vital Sign - Last 24 Hours 10/14/16 10/14/16 10/14/16 10/15/16 19:14 19:40 22:15 03:11 Temp 97.5 97.7 97.9 97.5 97.7 97.9 Pulse 68 68 69 Resp 16 16 16 B/P 100/56 139/58 145/73 Pulse Ox 97 96 100 O2 Delivery Room Air Room Air Room Air Room Air 10/15/16 10/15/16 10/15/16 10/15/16 07:00 08:10 08:32 11:30 Temp 97.5 97.7 97.5 97.7 Pulse 66 73 73 Resp 16 20 B/P 102/53 102/53 109/64 Pulse Ox 96 93 O2 Delivery Room Air Room Air Room Air Intake and Output 10/14/16 10/14/16 10/15/16 15:00 23:00 07:00 Intake Total 600 ml 200 ml Output Total 300 ml 200 ml Balance 300 ml 0 ml ERVIN HAIRSTONL K III DO Oct 15, 2016 15:02
[2016-10-15 15:33] VITALS: BP 122/64
--- NOTE | 2016-10-15 17:38 | PDOC ---
Provider Note Provider Note RENAL F/U : GWENDOLYN S : Doing better. No new issues reported. O : VSS Afebrile. Neck : Supple Lungs : Non labored. Few rhonchi. CVS : RRR Abd : Benign appearing. No major distention. Ext: No edema. Neuro : Intact Labs and meds reviewed. A/P : HTN w CKD. CKD : Stage III EDEMA. OBESITY HYPOVENT SYNDROME. Stool incontinent. [place] x 24 hr to complete 24 hr urine. CPM. Supportive care. Jeanne Snow M.D. JEANNE SNOW MD Oct 15, 2016 17:38
[2016-10-15 20:30] VITALS: BP 111/66
[2016-10-15] MEDS: INSULIN DETEMIR 300 UNITS/3 ML INSULN.PEN. SQ SCH (21:25)
[2016-10-15 22:55] VITALS: BP 132/63
[2016-10-16 02:32] VITALS: BP 112/53
[2016-10-16 05:49] LABS: BASO % 0 % (0-3); EOS % 0 % (0-3); HEMATOCRIT 26.3 % (36.0-47.0); HEMOGLOBIN 8.4 g/dL (12.0-15.5); LYMPH # 2.2 x10^3/uL (1.0-4.8); LYMPH % 41 % (24-48); MEAN CORPUSCULAR HEMOGLOBIN 26 pg (25-35); MEAN CORPUSCULAR HGB CONC 32 g/dL (31-37); MEAN CORPUSCULAR VOLUME 80 fL (79-100); MONO % 11 % (0-9); NEUT % 47 % (31-73); PLATELET COUNT 166 x10^3/uL (140-400); RED BLOOD COUNT 3.29 x10^6/uL (3.50-5.40); RED CELL DISTRIBUTION WIDTH 15.9 % (11.5-14.5); WHITE BLOOD COUNT 5.3 x10^3/uL (4.0-11.0)
[2016-10-16 06:08] LABS: ALBUMIN 2.7 g/dL (3.4-5.0); CALCIUM 9.1 mg/dL (8.5-10.1); CREATININE 1.9 mg/dL (0.6-1.0); GFR 32.6; PHOSPHORUS 3.4 mg/dL (2.6-4.7); POTASSIUM 4.8 mmol/L (3.5-5.1)
[2016-10-16] MEDS: INSULIN ASPART 300 UNITS/3 ML INSULN.PEN SQ SCH ×3 (07:30→16:30)
[2016-10-16 07:48] VITALS: BP 137/65
[2016-10-16] MEDS: DOCUSATE SODIUM 100 MG CAPSULE. PO SCH (08:38)
[2016-10-16] MEDS: POLYETHYLENE GLYCOL 3350 17 GM PACKET. PO SCH ×2 (08:38→20:43)
[2016-10-16] MEDS: CYANOCOBALAMIN (VITAMIN B-12) 1,000 MCG TABLET. PO SCH (08:39)
[2016-10-16] MEDS: ASCORBIC ACID 500 MG TABLET PO SCH (08:39)
[2016-10-16] MEDS: ASPIRIN CHEWABLE 81 MG TABLET. PO SCH (08:39)
[2016-10-16] MEDS: PANTOPRAZOLE 40 MG TABLET.DR. PO SCH (08:39)
[2016-10-16] MEDS: LUBIPROSTONE 8 MCG CAPSULE PO SCH ×2 (08:39→17:41)
[2016-10-16] MEDS: OXYBUTYNIN CHLORIDE 5 MG TABLET PO SCH (08:40)
[2016-10-16] MEDS: CARVEDILOL 6.25 MG TABLET. PO SCH (08:40)
[2016-10-16] MEDS: METOCLOPRAMIDE 5 MG TABLET. PO SCH (08:44)
[2016-10-16] MEDS: GABAPENTIN 300 MG CAPSULE. PO SCH ×2 (09:00→20:43)
--- NOTE | 2016-10-16 09:33 | PDOC ---
SUBJECTIVE ROS ASHLEY/ CKD III doing OK, Had BMs yest and feeling better overall CVS: no Orthopnea, no CP RESP: no SOB, no PHILLIPS GI: no Nausea, no Vomiting : no Dysuria, no Urgency OBJECTIVE Vital Signs Vital Signs Date Time Temp Pulse Resp B/P Pulse Ox O2 Delivery O2 Flow Rate FiO2 10/16/16 08:40 80 137/65 10/16/16 08:15 Room Air 10/16/16 07:48 98.3 18 95 98.3 I & 0 Intake and Output 10/16/16 07:00 Intake Total 890 ml Output Total 1100 ml Balance -210 ml Intake Oral 890 ml Output Urine Total 1100 ml # Bowel Movements 2 PHYSICAL EXAM Physical Exam General Appearance: Awake Alert Oriented x 3 In no Distress Eyes: ? dec VIsion Conjunctiva Normal EN: No EN Drainage Mucous Memb. moist Neck: no JVD no JVP Supple no Thyromegaly CVS: S1 S2 ? Murmur No Gallop No Rub no Edema Resp: no Rales no Rhonchi no Acc. Muscle use GI: BAS +ve NO Bruit Non Tender Non Distended : no CVA tenderness; no Suprapubic Tenderness SKIN: no Rashes Breast Exam deferred Mu.Sk: Adequate ROM no Muscle Atrophy Heme: Unable to palpate Obvious LAD no palp Splenomegaly NEURO: Good Strength and Tone Cranial Nerves II - XII grossly intact Psych: not Depressed no Active hallucination Assessment & Plan ? ASHLEY v/s CKD III Current FLuid and E-lyte status does not necessitate emergent need for Dialysis. Will re-evaluate for Dialysis in am, R/o Paraproteinemia with ongoing 24-hr Urine collection CKD III - HTNSive + Dm /NS. baseline Creat NA from OP setting Protein Gap with Low Alb - check PEPS Proteinruia (ch for ~ 1 yr) as noted by pt per PCP - quantitate with 24-hr URine lowish Na - resolved ? Constipation - now had BM after laxatives Anemia: Iron is OK, may need Epogen Transfuse as needed HTN: Current BP meds reviewed. See orders for changes. Discussed Plan of Care and prognosis etc. at length with family. COMMENT/RELEVANT DATA Meds Current Medications Medications (Trade) Dose Ordered Sig/Wilfrid Start Time Stop Time Status Last Admin Dose Admin Acetaminophen/ Hydrocodone Bitart (Lortab 5/325) 1 tab PRN Q6HRS PRN 10/14/16 00:15 10/14/16 09:11 1 TAB Ascorbic Acid (Vitamin C) 500 mg DAILY 10/14/16 09:00 10/16/16 08:39 500 MG Aspirin (Children'S Aspirin) 81 mg DAILY 10/14/16 09:00 10/16/16 08:39 81 MG Aspirin (Ecotrin) 325 mg 1X ONCE 10/13/16 21:30 10/13/16 21:31 DC 10/13/16 21:40 325 MG Bisacodyl (Dulcolax Supp) 10 mg PRN DAILY PRN 10/14/16 12:00 Carvedilol (Coreg) 6.25 mg DAILYWBKFT 10/14/16 08:00 10/16/16 08:40 6.25 MG Cyanocobalamin (Vitamin B-12) 500 mcg DAILY 10/14/16 09:00 10/16/16 08:39 500 MCG Docusate Sodium (Colace) 100 mg DAILY 10/14/16 09:00 10/16/16 08:38 100 MG Furosemide (Lasix) 40 mg DAILY 10/14/16 09:00 10/14/16 12:50 DC Gabapentin (Neurontin) 600 mg BID 10/14/16 09:00 10/14/16 17:27 600 MG Insulin Aspart (Novolog) 3 units TIDAC 10/14/16 07:30 10/15/16 17:34 3 UNITS Insulin Detemir (Levemir) 25 units QHS 10/14/16 21:00 10/15/16 21:25 25 UNITS Lubiprostone (Amitiza) 24 mcg BIDWMEALS 10/14/16 17:00 10/16/16 08:39 24 MCG Magnesium Hydroxide (Milk Of Magnesia) 2,400 mg PRN DAILY PRN 10/13/16 23:45 Magnesium Citrate (Citroma) 296 ml 1X ONCE 10/15/16 15:00 10/15/16 15:15 DC Magnesium Sulfate/ Dextrose (Magnesium Sulfate PREMIX 2GM) 50 ml @ 25 mls/hr PRN DAILY PRN 10/14/16 12:30 10/15/16 15:15 DC Metformin HCl (Glucophage) 1,000 mg BID 10/14/16 09:00 UNV Metoclopramide HCl (Reglan) 5 mg DAILY 10/14/16 09:00 10/16/16 08:44 5 MG Morphine Sulfate 2 mg PRN Q2HR PRN 10/13/16 22:45 10/14/16 22:44 DC Nitroglycerin (Nitrostat) 0.4 mg PRN Q5MIN PRN 10/13/16 22:45 10/14/16 22:44 DC Ondansetron HCl (Zofran) 4 mg PRN Q8HRS PRN 10/13/16 22:45 10/14/16 22:44 DC Oxybutynin Chloride (Ditropan) 5 mg DAILY 10/14/16 09:00 10/16/16 08:40 5 MG Pantoprazole Sodium 40 mg 40 mg DAILYAC 10/14/16 12:00 10/16/16 08:39 40 MG Polyethylene Glycol (miraLAX PACKET) 17 gm BID 10/14/16 21:00 10/16/16 08:38 17 GM Simethicone (Gas-X) 80 mg PRN AFTMEALHC PRN 10/13/16 23:45 Sodium Biphosphate/ Sodium Phosphate (Fleet Adult) 133 ml PRN DAILY PRN 10/13/16 23:45 10/14/16 12:50 DC Sodium Polystyrene Sulfonate (Kayexalate) 15 gm 1X ONCE 10/15/16 15:00 10/15/16 15:10 DC 10/15/16 15:20 15 GM Lab Laboratory Tests Test 10/15/16 11:22 10/15/16 17:29 10/15/16 20:25 10/16/16 05:00 Glucose (Fingerstick) 110mg/dL (70-99) 171mg/dL (70-99) 105mg/dL (70-99) White Blood Count 5.3x10^3/uL (4.0-11.0) Red Blood Count 3.29x10^6/uL (3.50-5.40) Hemoglobin 8.4g/dL (12.0-15.5) Hematocrit 26.3% (36.0-47.0) Mean Corpuscular Volume 80fL (79-100) Mean Corpuscular Hemoglobin 26pg (25-35) Mean Corpuscular Hemoglobin Concent 32g/dL (31-37) Red Cell Distribution Width 15.9% (11.5-14.5) Platelet Count 166x10^3/uL (140-400) Neutrophils (%) (Auto) 47% (31-73) Lymphocytes (%) (Auto) 41% (24-48) Monocytes (%) (Auto) 11% (0-9) Eosinophils (%) (Auto) 0% (0-3) Basophils (%) (Auto) 0% (0-3) Neutrophils # (Auto) 2.5x10^3uL (1.8-7.7) Lymphocytes # (Auto) 2.2x10^3/uL (1.0-4.8) Monocytes # (Auto) 0.6x10^3/uL (0.0-1.1) Eosinophils # (Auto) 0.0x10^3/uL (0.0-0.7) Basophils # (Auto) 0.0x10^3/uL (0.0-0.2) Sodium Level 135mmol/L (136-145) Potassium Level 4.8mmol/L (3.5-5.1) Chloride Level 103mmol/L (98-107) Carbon Dioxide Level 25mmol/L (21-32) Anion Gap 7 (6-14) Blood Urea Nitrogen 46mg/dL (7-20) Creatinine 1.9mg/dL (0.6-1.0) Estimated GFR (Cockcroft-Gault) 32.6 Glucose Level 91mg/dL (70-99) Calcium Level 9.1mg/dL (8.5-10.1) Phosphorus Level 3.4mg/dL (2.6-4.7) Magnesium Level 2.5mg/dL (1.8-2.4) Albumin 2.7g/dL (3.4-5.0) Test 10/16/16 07:42 Glucose (Fingerstick) 89mg/dL (70-99) INGRID LOMBARDI MD Oct 16, 2016 09:33
[2016-10-16 10:25] VITALS: BP 128/69
[2016-10-16 14:34] VITALS: BP 118/69
--- NOTE | 2016-10-16 15:52 | PDOC ---
PROGRESS NOTES Chief Complaint Chief Complaint cc: chest pain, abdominal pain. s/p L 2nd toe amputation Diabetes Mellitus type II chronic diastolic CHF CAD prior pacemaker with subsequent removal ASHLEY/CKD, creatinine of 1.7 on admission HTN GERD osteoarthritis History of Present Illness History of Present Illness Patient seen and evaluated at bedside. Patient reports improvement of constipation and nausea with bowel movements. d/w nurse about plan of care. Vitals Vitals Vital Signs Date Time Temp Pulse Resp B/P Pulse Ox O2 Delivery O2 Flow Rate FiO2 10/16/16 14:34 98.7 78 17 118/69 97 Room Air 98.7 Physical Exam General: Alert, Oriented X3, Cooperative, No acute distress Heart: Regular rate (SR with LBBB), Normal S1, Normal S2, Other (2/6 systolic murmur to LLS border) Lungs: Clear, Other (diminished inspiratory effort. negative chest retractions and/or accessory muscle use. ) Abdomen: Soft, Other (diffuse tenderness to palpation. Negative peritoneal signs. ) Extremities: No cyanosis, No edema Skin: No breakdown, Other (left toe surigical wound. dressing clean, dry, and intact ) Labs LABS Laboratory Tests Test 10/15/16 17:29 10/15/16 20:25 10/16/16 05:00 10/16/16 07:42 Glucose (Fingerstick) 171mg/dL (70-99) 105mg/dL (70-99) 89mg/dL (70-99) White Blood Count 5.3x10^3/uL (4.0-11.0) Red Blood Count 3.29x10^6/uL (3.50-5.40) Hemoglobin 8.4g/dL (12.0-15.5) Hematocrit 26.3% (36.0-47.0) Mean Corpuscular Volume 80fL (79-100) Mean Corpuscular Hemoglobin 26pg (25-35) Mean Corpuscular Hemoglobin Concent 32g/dL (31-37) Red Cell Distribution Width 15.9% (11.5-14.5) Platelet Count 166x10^3/uL (140-400) Neutrophils (%) (Auto) 47% (31-73) Lymphocytes (%) (Auto) 41% (24-48) Monocytes (%) (Auto) 11% (0-9) Eosinophils (%) (Auto) 0% (0-3) Basophils (%) (Auto) 0% (0-3) Neutrophils # (Auto) 2.5x10^3uL (1.8-7.7) Lymphocytes # (Auto) 2.2x10^3/uL (1.0-4.8) Monocytes # (Auto) 0.6x10^3/uL (0.0-1.1) Eosinophils # (Auto) 0.0x10^3/uL (0.0-0.7) Basophils # (Auto) 0.0x10^3/uL (0.0-0.2) Sodium Level 135mmol/L (136-145) Potassium Level 4.8mmol/L (3.5-5.1) Chloride Level 103mmol/L (98-107) Carbon Dioxide Level 25mmol/L (21-32) Anion Gap 7 (6-14) Blood Urea Nitrogen 46mg/dL (7-20) Creatinine 1.9mg/dL (0.6-1.0) Estimated GFR (Cockcroft-Gault) 32.6 Glucose Level 91mg/dL (70-99) Calcium Level 9.1mg/dL (8.5-10.1) Phosphorus Level 3.4mg/dL (2.6-4.7) Magnesium Level 2.5mg/dL (1.8-2.4) Albumin 2.7g/dL (3.4-5.0) Test 10/16/16 11:32 Glucose (Fingerstick) 193mg/dL (70-99) Review of Systems Review of Systems (+) nausea, improved (+) constipation Denies chest pain, palpitations, sob, vomiting/diarrhea, dizziness/ lightheadedness, hematochezia/melena, or fever/chills. Assessment and Plan Assessmemt and Plan Problems Medical Problems: (1) Abdominal pain Status: Acute (2) Chest pain Status: Acute (3) Elevated troponin Status: Acute Assessment: 1.) constipation, suspect narcotic induced 2.) chest pain, currently resolved. 3.) CAD, significant lesions but nonobstructive per [facility] 06/2015. 4.) hyperkalemia, WNL currently 5.) ASHLEY/CKD, creatinine uptrending 6.) Chronic diastolic CHF 7.) HTN 8.) Recent L 2nd toe amputation secondary to osteomyelitis 9.) Diabetes mellitus type II 10.) chronic LBBB 11.) transaminitis, with elevated alkaline phosphatase. 12.) normocytic, normochromic anemia Plan: 1.) continue bowel regimen and increased Amitiza, per GI.. 2.) Monitor AM labs 3.) maintenance fluids, PEEP, and 24hr urine, per nephrology 4.) continue home medications as appropriate. Glucose checks AC, consider SSI if required. 5.) PT/OT 6.) appreciate subspecialty input 7.) probable discharge in the next few days when okay with subspecialties Problems: Comment Review of Relevant I have reviewed the following items bro (where applicable) has been applied. Labs Laboratory Tests Test 10/14/16 16:47 10/14/16 20:51 10/15/16 05:00 10/15/16 08:16 Glucose (Fingerstick) 228mg/dL (70-99) 164mg/dL (70-99) 121mg/dL (70-99) White Blood Count 4.5x10^3/uL (4.0-11.0) Red Blood Count 3.38x10^6/uL (3.50-5.40) Hemoglobin 8.7g/dL (12.0-15.5) Hematocrit 27.1% (36.0-47.0) Mean Corpuscular Volume 80fL (79-100) Mean Corpuscular Hemoglobin 26pg (25-35) Mean Corpuscular Hemoglobin Concent 32g/dL (31-37) Red Cell Distribution Width 16.1% (11.5-14.5) Platelet Count 164x10^3/uL (140-400) Neutrophils (%) (Auto) 34% (31-73) Lymphocytes (%) (Auto) 52% (24-48) Monocytes (%) (Auto) 13% (0-9) Eosinophils (%) (Auto) 1% (0-3) Basophils (%) (Auto) 1% (0-3) Neutrophils # (Auto) 1.5x10^3uL (1.8-7.7) Lymphocytes # (Auto) 2.3x10^3/uL (1.0-4.8) Monocytes # (Auto) 0.6x10^3/uL (0.0-1.1) Eosinophils # (Auto) 0.0x10^3/uL (0.0-0.7) Basophils # (Auto) 0.0x10^3/uL (0.0-0.2) Sodium Level 136mmol/L (136-145) Potassium Level 5.7mmol/L (3.5-5.1) Chloride Level 103mmol/L (98-107) Carbon Dioxide Level 25mmol/L (21-32) Anion Gap 8 (6-14) Blood Urea Nitrogen 42mg/dL (7-20) Creatinine 1.8mg/dL (0.6-1.0) Estimated GFR (Cockcroft-Gault) 34.7 Glucose Level 140mg/dL (70-99) Calcium Level 9.3mg/dL (8.5-10.1) Phosphorus Level 4.2mg/dL (2.6-4.7) Magnesium Level 2.4mg/dL (1.8-2.4) Albumin 2.9g/dL (3.4-5.0) Test 10/15/16 11:22 10/15/16 17:29 10/15/16 20:25 10/16/16 05:00 Glucose (Fingerstick) 110mg/dL (70-99) 171mg/dL (70-99) 105mg/dL (70-99) White Blood Count 5.3x10^3/uL (4.0-11.0) Red Blood Count 3.29x10^6/uL (3.50-5.40) Hemoglobin 8.4g/dL (12.0-15.5) Hematocrit 26.3% (36.0-47.0) Mean Corpuscular Volume 80fL (79-100) Mean Corpuscular Hemoglobin 26pg (25-35) Mean Corpuscular Hemoglobin Concent 32g/dL (31-37) Red Cell Distribution Width 15.9% (11.5-14.5) Platelet Count 166x10^3/uL (140-400) Neutrophils (%) (Auto) 47% (31-73) Lymphocytes (%) (Auto) 41% (24-48) Monocytes (%) (Auto) 11% (0-9) Eosinophils (%) (Auto) 0% (0-3) Basophils (%) (Auto) 0% (0-3) Neutrophils # (Auto) 2.5x10^3uL (1.8-7.7) Lymphocytes # (Auto) 2.2x10^3/uL (1.0-4.8) Monocytes # (Auto) 0.6x10^3/uL (0.0-1.1) Eosinophils # (Auto) 0.0x10^3/uL (0.0-0.7) Basophils # (Auto) 0.0x10^3/uL (0.0-0.2) Sodium Level 135mmol/L (136-145) Potassium Level 4.8mmol/L (3.5-5.1) Chloride Level 103mmol/L (98-107) Carbon Dioxide Level 25mmol/L (21-32) Anion Gap 7 (6-14) Blood Urea Nitrogen 46mg/dL (7-20) Creatinine 1.9mg/dL (0.6-1.0) Estimated GFR (Cockcroft-Gault) 32.6 Glucose Level 91mg/dL (70-99) Calcium Level 9.1mg/dL (8.5-10.1) Phosphorus Level 3.4mg/dL (2.6-4.7) Magnesium Level 2.5mg/dL (1.8-2.4) Albumin 2.7g/dL (3.4-5.0) Test 10/16/16 07:42 10/16/16 11:32 Glucose (Fingerstick) 89mg/dL (70-99) 193mg/dL (70-99) Laboratory Tests Test 10/15/16 17:29 10/15/16 20:25 10/16/16 05:00 10/16/16 07:42 Glucose (Fingerstick) 171mg/dL (70-99) 105mg/dL (70-99) 89mg/dL (70-99) White Blood Count 5.3x10^3/uL (4.0-11.0) Red Blood Count 3.29x10^6/uL (3.50-5.40) Hemoglobin 8.4g/dL (12.0-15.5) Hematocrit 26.3% (36.0-47.0) Mean Corpuscular Volume 80fL (79-100) Mean Corpuscular Hemoglobin 26pg (25-35) Mean Corpuscular Hemoglobin Concent 32g/dL (31-37) Red Cell Distribution Width 15.9% (11.5-14.5) Platelet Count 166x10^3/uL (140-400) Neutrophils (%) (Auto) 47% (31-73) Lymphocytes (%) (Auto) 41% (24-48) Monocytes (%) (Auto) 11% (0-9) Eosinophils (%) (Auto) 0% (0-3) Basophils (%) (Auto) 0% (0-3) Neutrophils # (Auto) 2.5x10^3uL (1.8-7.7) Lymphocytes # (Auto) 2.2x10^3/uL (1.0-4.8) Monocytes # (Auto) 0.6x10^3/uL (0.0-1.1) Eosinophils # (Auto) 0.0x10^3/uL (0.0-0.7) Basophils # (Auto) 0.0x10^3/uL (0.0-0.2) Sodium Level 135mmol/L (136-145) Potassium Level 4.8mmol/L (3.5-5.1) Chloride Level 103mmol/L (98-107) Carbon Dioxide Level 25mmol/L (21-32) Anion Gap 7 (6-14) Blood Urea Nitrogen 46mg/dL (7-20) Creatinine 1.9mg/dL (0.6-1.0) Estimated GFR (Cockcroft-Gault) 32.6 Glucose Level 91mg/dL (70-99) Calcium Level 9.1mg/dL (8.5-10.1) Phosphorus Level 3.4mg/dL (2.6-4.7) Magnesium Level 2.5mg/dL (1.8-2.4) Albumin 2.7g/dL (3.4-5.0) Test 10/16/16 11:32 Glucose (Fingerstick) 193mg/dL (70-99) Microbiology 10/13/16 Urine Culture - Final, Complete 10/13/16 Urine Culture Result 1 (TANJA) - Final, Complete Medications Current Medications Aspirin (Ecotrin) 325 mg 1X ONCE PO Last administered on 10/13/16t 21:40; Start 10/13/16 at 21:30; Stop 10/13/16 at 21:31; Status DC Nitroglycerin (Nitrostat) 0.4 mg PRN Q5MIN PRN SL CHEST PAIN; Start 10/13/16 at 21:15; Stop 10/13/16 at 22:42; Status DC Ondansetron HCl (Zofran) 4 mg PRN Q8HRS PRN IV NAUSEA/VOMITING; Start 10/13/16 at 22:45; Stop 10/14/16 at 22:44; Status DC Morphine Sulfate 2 mg PRN Q2HR PRN IV SEVERE PAIN; Start 10/13/16 at 22:45; Stop 10/14/16 at 22:44; Status DC Nitroglycerin (Nitrostat) 0.4 mg PRN Q5MIN PRN SL CHEST PAIN; Start 10/13/16 at 22:45; Stop 10/14/16 at 22:44; Status DC Polyethylene Glycol (miraLAX PACKET) 17 gm DAILY PO ; Start 10/14/16 at 09:00; Stop 10/14/16 at 11:55; Status DC Polyethylene Glycol (miraLAX PACKET) 17 gm PRN DAILY PRN PO CONSTIPATION; Start 10/13/16 at 23:45 Polyethylene Glycol (miraLAX PACKET) 17 gm 1X ONCE PO Last administered on 00:47; Start 10/14/16 at 00:30; Stop 10/14/16 at 00:31; Status DC Docusate Sodium (Colace) 100 mg DAILY PO Last administered on 10/16/16 08:38; Start 10/14/16 at 09:00 Magnesium Hydroxide (Milk Of Magnesia) 2,400 mg PRN DAILY PRN PO CONSTIPATION; Start 10/13/16 at 23:45 Simethicone (Gas-X) 80 mg PRN AFTMEALHC PRN PO GAS / BLOATING; Start 10/13/16 at 23:45 Aspirin (Children'S Aspirin) 81 mg DAILY PO Last administered on 10/16/16 08: 39; Start 10/14/16 at 09:00 Carvedilol (Coreg) 6.25 mg DAILYWBKFT PO Last administered on 10/16/16 08:40; Start 10/14/16 at 08:00 Cyanocobalamin (Vitamin B-12) 500 mcg DAILY PO Last administered on 10/16/16 08:39; Start 10/14/16 at 09:00 Furosemide (Lasix) 40 mg DAILY PO ; Start 10/14/16 at 09:00; Stop 10/14/16 at 12 :50; Status DC Metformin HCl (Glucophage) 1,000 mg BID PO ; Start 10/14/16 at 09:00; Status UNV Metoclopramide HCl (Reglan) 5 mg DAILY PO Last administered on 10/16/16 08:44 ; Start 10/14/16 at 09:00 Ascorbic Acid (Vitamin C) 500 mg DAILY PO Last administered on 10/16/16 08:39 ; Start 10/14/16 at 09:00 Gabapentin (Neurontin) 600 mg BID PO Last administered on 10/14/16 17:27; Start 10/14/16 at 09:00 Insulin Aspart (Novolog) 3 units TIDAC SQ Last administered on 10/16/16 12:12 ; Start 10/14/16 at 07:30 Insulin Detemir (Levemir) 10 units QHS SQ ; Start 10/14/16 at 21:00; Stop at 21:00; Status DC Oxybutynin Chloride (Ditropan) 5 mg DAILY PO Last administered on 10/16/16 08: 40; Start 10/14/16 at 09:00 Acetaminophen/ Hydrocodone Bitart (Lortab 5/325) 1 tab PRN Q6HRS PRN PO SEVERE PAIN Last administered on 10/14/16 09:11; Start 10/14/16 at 00:15 Lubiprostone (Amitiza) 8 mcg BIDWMEALS PO ; Start 10/14/16 at 08:00; Stop at 11:55; Status DC Sodium Biphosphate/ Sodium Phosphate (Fleet Adult) 133 ml PRN DAILY PRN [place] CONSTIPATION; Start 10/13/16 at 23:45; Stop 10/14/16 at 12:50; Status DC Lubiprostone (Amitiza) 24 mcg BIDWMEALS PO Last administered on 10/16/16 08:39 ; Start 10/14/16 at 17:00 Polyethylene Glycol (miraLAX PACKET) 17 gm BID PO Last administered on 08:38; Start 10/14/16 at 21:00 Bisacodyl (Dulcolax Supp) 10 mg PRN DAILY PRN [place] CONSTIPATION; Start 10/14/16 at 12:00 Pantoprazole Sodium 40 mg 40 mg DAILYAC PO Last administered on 10/16/16 08:39 ; Start 10/14/16 at 12:00 Magnesium Sulfate/ Dextrose (Magnesium Sulfate PREMIX 2GM) 50 ml @ 25 mls/hr PRN DAILY PRN IV for Mag < 1.7 on am labs; Start 10/14/16 at 12:30; Stop at 15:15; Status DC Insulin Detemir (Levemir) 25 units QHS SQ Last administered on 10/15/16 21:25 ; Start 10/14/16 at 21:00 Magnesium Citrate (Citroma) 296 ml 1X ONCE PO ; Start 10/15/16 at 15:00; Stop 10/15/16 at 15:15; Status DC Sodium Polystyrene Sulfonate (Kayexalate) 15 gm 1X ONCE PO Last administered on 10/15/16 15:20; Start 10/15/16 at 15:00; Stop 10/15/16 at 15:10; Status DC Active Scripts Active Miralax (Polyethylene Glycol 3350) 17 Gm Powd.pack 17 Packet PO DAILY Colace (Docusate Sodium) 100 Mg Capsule 1 Cap PO BID [Hydrocodone/Acetaminophen] 1 TAB Tablet 1 Tab PO PRN Q6HRS PRN Reported Premarin (Estrogens, Conjugated) 30 Gm Cream.appl 1 Kristal VG 3X/WEEK Cyclobenzaprine Hcl 10 Mg Tablet 1 Tab PO QHS Losartan Potassium 100 Mg Tablet 100 Mg PO DAILY Oxybutynin Chloride Er (Oxybutynin Chloride) 5 Mg Tab.er.24 1 Tab PO DAILY Furosemide 40 Mg Tablet 1 Tab PO DAILY Gabapentin 300 Mg Capsule 600 Mg PO TID Vitamin B-12 (Cyanocobalamin (Vitamin B-12)) 1,000 Mcg Tablet 500 Mcg PO DAILY Lantus Solostar (Insulin Glargine,Hum.rec.anlog) 100 Unit/1 Ml Insuln.pen 25 Unit SQ QHS Novolog (Insulin Aspart) 100 Unit/1 Ml Cartridge 3 Unit SQ TIDAC Aspirin 81 Mg Tab.chew 81 Mg PO Carvedilol 6.25 Mg Tablet 6.25 Mg PO DAILY Metformin Hcl 500 Mg Tablet 1,000 Mg PO BID Calcium Citrate - Vit D3 Tab (Calcium Citrate/Vitamin D3) 1 Each Tablet 1 Each PO Vitals/I & O Vital Sign - Last 24 Hours 10/15/16 10/15/16 10/15/16 10/16/16 19:40 20:30 22:55 02:32 Temp 98.3 98.6 99.0 98.3 98.6 99.0 Pulse 82 78 77 Resp 16 16 16 B/P 111/66 132/63 112/53 Pulse Ox 94 95 95 O2 Delivery Room Air Room Air Room Air Room Air 10/16/16 10/16/16 10/16/16 10/16/16 07:48 08:15 08:40 10:25 Temp 98.3 97.9 98.3 97.9 Pulse 80 80 79 Resp 18 18 B/P 137/65 137/65 128/69 Pulse Ox 95 97 O2 Delivery Nasal Cannula Room Air Room Air 10/16/16 14:34 Temp 98.7 98.7 Pulse 78 Resp 17 B/P 118/69 Pulse Ox 97 O2 Delivery Room Air Intake and Output 10/15/16 10/15/16 10/16/16 15:00 23:00 07:00 Intake Total 490 ml 400 ml Output Total 400 ml 700 ml Balance 90 ml -300 ml BULMARO HAIRSTON III DO Oct 16, 2016 15:52
[2016-10-16 19:06] VITALS: BP 110/68
[2016-10-16] MEDS: INSULIN DETEMIR 300 UNITS/3 ML INSULN.PEN. SQ SCH (20:42)
[2016-10-16 23:34] VITALS: BP 141/88
[2016-10-17 03:26] VITALS: BP 116/52
[2016-10-17 05:11] LABS: BASO % 0 % (0-3); EOS % 1 % (0-3); HEMATOCRIT 26.8 % (36.0-47.0); HEMOGLOBIN 8.6 g/dL (12.0-15.5); LYMPH # 2.4 x10^3/uL (1.0-4.8); LYMPH % 42 % (24-48); MEAN CORPUSCULAR HEMOGLOBIN 26 pg (25-35); MEAN CORPUSCULAR HGB CONC 32 g/dL (31-37); MEAN CORPUSCULAR VOLUME 80 fL (79-100); MONO % 10 % (0-9); NEUT % 47 % (31-73); PLATELET COUNT 158 x10^3/uL (140-400); RED BLOOD COUNT 3.34 x10^6/uL (3.50-5.40); RED CELL DISTRIBUTION WIDTH 16.1 % (11.5-14.5); WHITE BLOOD COUNT 5.8 x10^3/uL (4.0-11.0)
[2016-10-17 05:50] LABS: ALBUMIN 2.8 g/dL (3.4-5.0); GFR 30.8; PHOSPHORUS 3.4 mg/dL (2.6-4.7); POTASSIUM 4.3 mmol/L (3.5-5.1)
[2016-10-17 07:00] VITALS: BP 116/73
[2016-10-17] MEDS: INSULIN ASPART 300 UNITS/3 ML INSULN.PEN SQ SCH ×3 (07:30→18:04)
[2016-10-17] MEDS: GABAPENTIN 300 MG CAPSULE. PO SCH ×2 (07:50→21:00)
[2016-10-17] MEDS ORDERED: REGADENOSON 0.4 MG/5 ML DISP.SYRIN. IV ONE (08:30)
[2016-10-17 10:50] VITALS: BP 132/93
--- NOTE | 2016-10-17 11:12 | PDOC ---
PROGRESS NOTES Chief Complaint Chief Complaint cc: Chest pain, abdominal pain. s/p L 2nd toe amputation Diabetes Mellitus type II Chronic diastolic CHF CAD Prior pacemaker with subsequent removal ASHLEY/CKD, creatinine of 1.7 on admission HTN GERD Osteoarthritis History of Present Illness History of Present Illness Patient seen and examined at bedside. Patient reports having small bowel movements. Patient continues to feel constipated. Patient is tolerating current nutrition regime Vitals Vitals Vital Signs Date Time Temp Pulse Resp B/P Pulse Ox O2 Delivery O2 Flow Rate FiO2 10/17/16 10:50 97.5 86 19 132/93 99 Room Air 97.5 Physical Exam General: Alert, Oriented X3, Cooperative, No acute distress Heart: Regular rate (SR with LBBB), Normal S1, Normal S2, Other (2/6 systolic murmur to LLS border) Lungs: Clear, Other (diminished inspiratory effort. negative chest retractions and/or accessory muscle use. ) Abdomen: Soft, Other (diffuse tenderness to palpation. Negative peritoneal signs. ) Extremities: No clubbing, No cyanosis, No edema Skin: No breakdown, No significant lesion, Other Labs LABS Laboratory Tests Test 10/16/16 11:32 10/16/16 16:47 10/16/16 20:41 10/17/16 03:50 Glucose (Fingerstick) 193mg/dL (70-99) 86mg/dL (70-99) 204mg/dL (70-99) White Blood Count 5.8x10^3/uL (4.0-11.0) Red Blood Count 3.34x10^6/uL (3.50-5.40) Hemoglobin 8.6g/dL (12.0-15.5) Hematocrit 26.8% (36.0-47.0) Mean Corpuscular Volume 80fL (79-100) Mean Corpuscular Hemoglobin 26pg (25-35) Mean Corpuscular Hemoglobin Concent 32g/dL (31-37) Red Cell Distribution Width 16.1% (11.5-14.5) Platelet Count 158x10^3/uL (140-400) Neutrophils (%) (Auto) 47% (31-73) Lymphocytes (%) (Auto) 42% (24-48) Monocytes (%) (Auto) 10% (0-9) Eosinophils (%) (Auto) 1% (0-3) Basophils (%) (Auto) 0% (0-3) Neutrophils # (Auto) 2.7x10^3uL (1.8-7.7) Lymphocytes # (Auto) 2.4x10^3/uL (1.0-4.8) Monocytes # (Auto) 0.6x10^3/uL (0.0-1.1) Eosinophils # (Auto) 0.0x10^3/uL (0.0-0.7) Basophils # (Auto) 0.0x10^3/uL (0.0-0.2) Sodium Level 135mmol/L (136-145) Potassium Level 4.3mmol/L (3.5-5.1) Chloride Level 103mmol/L (98-107) Carbon Dioxide Level 23mmol/L (21-32) Anion Gap 9 (6-14) Blood Urea Nitrogen 50mg/dL (7-20) Creatinine 2.0mg/dL (0.6-1.0) Estimated GFR (Cockcroft-Gault) 30.8 Glucose Level 122mg/dL (70-99) Calcium Level 9.0mg/dL (8.5-10.1) Phosphorus Level 3.4mg/dL (2.6-4.7) Magnesium Level 2.5mg/dL (1.8-2.4) Albumin 2.8g/dL (3.4-5.0) Test 10/17/16 08:21 Glucose (Fingerstick) 78mg/dL (70-99) Review of Systems Review of Systems Denies vomiting Denies headaches or blurry vision Assessment and Plan Assessmemt and Plan Problems Medical Problems: (1) Abdominal pain Status: Acute (2) Chest pain Status: Acute (3) Elevated troponin Status: Acute Chest pain, abdominal pain. s/p L 2nd toe amputation Diabetes Mellitus type II Chronic diastolic CHF CAD Prior pacemaker with subsequent removal ASHLEY/CKD, creatinine of 1.7 on admission HTN GERD Osteoarthritis Plan: Continue current medication regime and adjust accordingly Continue bed ulcer precautions Continue to monitor I's and O's Encourage hydration Encourage ambulation as tolerated through PT/OT Problems: Comment Review of Relevant I have reviewed the following items bro (where applicable) has been applied. Labs Laboratory Tests Test 10/15/16 11:22 10/15/16 17:29 10/15/16 20:25 10/16/16 05:00 Glucose (Fingerstick) 110mg/dL (70-99) 171mg/dL (70-99) 105mg/dL (70-99) White Blood Count 5.3x10^3/uL (4.0-11.0) Red Blood Count 3.29x10^6/uL (3.50-5.40) Hemoglobin 8.4g/dL (12.0-15.5) Hematocrit 26.3% (36.0-47.0) Mean Corpuscular Volume 80fL (79-100) Mean Corpuscular Hemoglobin 26pg (25-35) Mean Corpuscular Hemoglobin Concent 32g/dL (31-37) Red Cell Distribution Width 15.9% (11.5-14.5) Platelet Count 166x10^3/uL (140-400) Neutrophils (%) (Auto) 47% (31-73) Lymphocytes (%) (Auto) 41% (24-48) Monocytes (%) (Auto) 11% (0-9) Eosinophils (%) (Auto) 0% (0-3) Basophils (%) (Auto) 0% (0-3) Neutrophils # (Auto) 2.5x10^3uL (1.8-7.7) Lymphocytes # (Auto) 2.2x10^3/uL (1.0-4.8) Monocytes # (Auto) 0.6x10^3/uL (0.0-1.1) Eosinophils # (Auto) 0.0x10^3/uL (0.0-0.7) Basophils # (Auto) 0.0x10^3/uL (0.0-0.2) Sodium Level 135mmol/L (136-145) Potassium Level 4.8mmol/L (3.5-5.1) Chloride Level 103mmol/L (98-107) Carbon Dioxide Level 25mmol/L (21-32) Anion Gap 7 (6-14) Blood Urea Nitrogen 46mg/dL (7-20) Creatinine 1.9mg/dL (0.6-1.0) Estimated GFR (Cockcroft-Gault) 32.6 Glucose Level 91mg/dL (70-99) Calcium Level 9.1mg/dL (8.5-10.1) Phosphorus Level 3.4mg/dL (2.6-4.7) Magnesium Level 2.5mg/dL (1.8-2.4) Albumin 2.7g/dL (3.4-5.0) Test 10/16/16 07:42 10/16/16 11:32 10/16/16 16:47 10/16/16 20:41 Glucose (Fingerstick) 89mg/dL (70-99) 193mg/dL (70-99) 86mg/dL (70-99) 204mg/dL (70-99) Test 10/17/16 03:50 10/17/16 08:21 White Blood Count 5.8x10^3/uL (4.0-11.0) Red Blood Count 3.34x10^6/uL (3.50-5.40) Hemoglobin 8.6g/dL (12.0-15.5) Hematocrit 26.8% (36.0-47.0) Mean Corpuscular Volume 80fL (79-100) Mean Corpuscular Hemoglobin 26pg (25-35) Mean Corpuscular Hemoglobin Concent 32g/dL (31-37) Red Cell Distribution Width 16.1% (11.5-14.5) Platelet Count 158x10^3/uL (140-400) Neutrophils (%) (Auto) 47% (31-73) Lymphocytes (%) (Auto) 42% (24-48) Monocytes (%) (Auto) 10% (0-9) Eosinophils (%) (Auto) 1% (0-3) Basophils (%) (Auto) 0% (0-3) Neutrophils # (Auto) 2.7x10^3uL (1.8-7.7) Lymphocytes # (Auto) 2.4x10^3/uL (1.0-4.8) Monocytes # (Auto) 0.6x10^3/uL (0.0-1.1) Eosinophils # (Auto) 0.0x10^3/uL (0.0-0.7) Basophils # (Auto) 0.0x10^3/uL (0.0-0.2) Sodium Level 135mmol/L (136-145) Potassium Level 4.3mmol/L (3.5-5.1) Chloride Level 103mmol/L (98-107) Carbon Dioxide Level 23mmol/L (21-32) Anion Gap 9 (6-14) Blood Urea Nitrogen 50mg/dL (7-20) Creatinine 2.0mg/dL (0.6-1.0) Estimated GFR (Cockcroft-Gault) 30.8 Glucose Level 122mg/dL (70-99) Calcium Level 9.0mg/dL (8.5-10.1) Phosphorus Level 3.4mg/dL (2.6-4.7) Magnesium Level 2.5mg/dL (1.8-2.4) Albumin 2.8g/dL (3.4-5.0) Glucose (Fingerstick) 78mg/dL (70-99) Laboratory Tests Test 10/16/16 11:32 10/16/16 16:47 10/16/16 20:41 10/17/16 03:50 Glucose (Fingerstick) 193mg/dL (70-99) 86mg/dL (70-99) 204mg/dL (70-99) White Blood Count 5.8x10^3/uL (4.0-11.0) Red Blood Count 3.34x10^6/uL (3.50-5.40) Hemoglobin 8.6g/dL (12.0-15.5) Hematocrit 26.8% (36.0-47.0) Mean Corpuscular Volume 80fL (79-100) Mean Corpuscular Hemoglobin 26pg (25-35) Mean Corpuscular Hemoglobin Concent 32g/dL (31-37) Red Cell Distribution Width 16.1% (11.5-14.5) Platelet Count 158x10^3/uL (140-400) Neutrophils (%) (Auto) 47% (31-73) Lymphocytes (%) (Auto) 42% (24-48) Monocytes (%) (Auto) 10% (0-9) Eosinophils (%) (Auto) 1% (0-3) Basophils (%) (Auto) 0% (0-3) Neutrophils # (Auto) 2.7x10^3uL (1.8-7.7) Lymphocytes # (Auto) 2.4x10^3/uL (1.0-4.8) Monocytes # (Auto) 0.6x10^3/uL (0.0-1.1) Eosinophils # (Auto) 0.0x10^3/uL (0.0-0.7) Basophils # (Auto) 0.0x10^3/uL (0.0-0.2) Sodium Level 135mmol/L (136-145) Potassium Level 4.3mmol/L (3.5-5.1) Chloride Level 103mmol/L (98-107) Carbon Dioxide Level 23mmol/L (21-32) Anion Gap 9 (6-14) Blood Urea Nitrogen 50mg/dL (7-20) Creatinine 2.0mg/dL (0.6-1.0) Estimated GFR (Cockcroft-Gault) 30.8 Glucose Level 122mg/dL (70-99) Calcium Level 9.0mg/dL (8.5-10.1) Phosphorus Level 3.4mg/dL (2.6-4.7) Magnesium Level 2.5mg/dL (1.8-2.4) Albumin 2.8g/dL (3.4-5.0) Test 10/17/16 08:21 Glucose (Fingerstick) 78mg/dL (70-99) Microbiology 10/13/16 Urine Culture - Final, Complete 10/13/16 Urine Culture Result 1 (TANJA) - Final, Complete Medications Current Medications Aspirin (Ecotrin) 325 mg 1X ONCE PO Last administered on 10/13/16t 21:40; Start 10/13/16 at 21:30; Stop 10/13/16 at 21:31; Status DC Nitroglycerin (Nitrostat) 0.4 mg PRN Q5MIN PRN SL CHEST PAIN; Start 10/13/16 at 21:15; Stop 10/13/16 at 22:42; Status DC Ondansetron HCl (Zofran) 4 mg PRN Q8HRS PRN IV NAUSEA/VOMITING; Start 10/13/16 at 22:45; Stop 10/14/16 at 22:44; Status DC Morphine Sulfate 2 mg PRN Q2HR PRN IV SEVERE PAIN; Start 10/13/16 at 22:45; Stop 10/14/16 at 22:44; Status DC Nitroglycerin (Nitrostat) 0.4 mg PRN Q5MIN PRN SL CHEST PAIN; Start 10/13/16 at 22:45; Stop 10/14/16 at 22:44; Status DC Polyethylene Glycol (miraLAX PACKET) 17 gm DAILY PO ; Start 10/14/16 at 09:00; Stop 10/14/16 at 11:55; Status DC Polyethylene Glycol (miraLAX PACKET) 17 gm PRN DAILY PRN PO CONSTIPATION; Start 10/13/16 at 23:45 Polyethylene Glycol (miraLAX PACKET) 17 gm 1X ONCE PO Last administered on 00:47; Start 10/14/16 at 00:30; Stop 10/14/16 at 00:31; Status DC Docusate Sodium (Colace) 100 mg DAILY PO Last administered on 10/16/16 08:38; Start 10/14/16 at 09:00 Magnesium Hydroxide (Milk Of Magnesia) 2,400 mg PRN DAILY PRN PO CONSTIPATION; Start 10/13/16 at 23:45 Simethicone (Gas-X) 80 mg PRN AFTMEALHC PRN PO GAS / BLOATING; Start 10/13/16 at 23:45 Aspirin (Children'S Aspirin) 81 mg DAILY PO Last administered on 10/16/16 08: 39; Start 10/14/16 at 09:00 Carvedilol (Coreg) 6.25 mg DAILYWBKFT PO Last administered on 10/16/16 08:40; Start 10/14/16 at 08:00 Cyanocobalamin (Vitamin B-12) 500 mcg DAILY PO Last administered on 10/16/16 08:39; Start 10/14/16 at 09:00 Furosemide (Lasix) 40 mg DAILY PO ; Start 10/14/16 at 09:00; Stop 10/14/16 at 12 :50; Status DC Metformin HCl (Glucophage) 1,000 mg BID PO ; Start 10/14/16 at 09:00; Status UNV Metoclopramide HCl (Reglan) 5 mg DAILY PO Last administered on 10/16/16 08:44 ; Start 10/14/16 at 09:00 Ascorbic Acid (Vitamin C) 500 mg DAILY PO Last administered on 10/16/16 08:39 ; Start 10/14/16 at 09:00 Gabapentin (Neurontin) 600 mg BID PO Last administered on 10/14/16 17:27; Start 10/14/16 at 09:00 Insulin Aspart (Novolog) 3 units TIDAC SQ Last administered on 10/16/16 12:12 ; Start 10/14/16 at 07:30 Insulin Detemir (Levemir) 10 units QHS SQ ; Start 10/14/16 at 21:00; Stop at 21:00; Status DC Oxybutynin Chloride (Ditropan) 5 mg DAILY PO Last administered on 10/16/16 08: 40; Start 10/14/16 at 09:00 Acetaminophen/ Hydrocodone Bitart (Lortab 5/325) 1 tab PRN Q6HRS PRN PO SEVERE PAIN Last administered on 10/14/16 09:11; Start 10/14/16 at 00:15 Lubiprostone (Amitiza) 8 mcg BIDWMEALS PO ; Start 10/14/16 at 08:00; Stop at 11:55; Status DC Sodium Biphosphate/ Sodium Phosphate (Fleet Adult) 133 ml PRN DAILY PRN MI CONSTIPATION; Start 10/13/16 at 23:45; Stop 10/14/16 at 12:50; Status DC Lubiprostone (Amitiza) 24 mcg BIDWMEALS PO Last administered on 10/16/16 17:41 ; Start 10/14/16 at 17:00 Polyethylene Glycol (miraLAX PACKET) 17 gm BID PO Last administered on 20:43; Start 10/14/16 at 21:00 Bisacodyl (Dulcolax Supp) 10 mg PRN DAILY PRN MI CONSTIPATION; Start 10/14/16 at 12:00 Pantoprazole Sodium 40 mg 40 mg DAILYAC PO Last administered on 10/16/16 08:39 ; Start 10/14/16 at 12:00 Magnesium Sulfate/ Dextrose (Magnesium Sulfate PREMIX 2GM) 50 ml @ 25 mls/hr PRN DAILY PRN IV for Mag < 1.7 on am labs; Start 10/14/16 at 12:30; Stop at 15:15; Status DC Insulin Detemir (Levemir) 25 units QHS SQ Last administered on 10/16/16 20:42 ; Start 10/14/16 at 21:00 Magnesium Citrate (Citroma) 296 ml 1X ONCE PO ; Start 10/15/16 at 15:00; Stop 10/15/16 at 15:15; Status DC Sodium Polystyrene Sulfonate (Kayexalate) 15 gm 1X ONCE PO Last administered on 10/15/16 15:20; Start 10/15/16 at 15:00; Stop 10/15/16 at 15:10; Status DC Regadenoson (Lexiscan) 0.4 mg 1X ONCE IV Last administered on 10/17/16 10:02; Start 10/17/16 at 08:30; Stop 10/17/16 at 08:31; Status DC Active Scripts Active Miralax (Polyethylene Glycol 3350) 17 Gm Powd.pack 17 Packet PO DAILY Colace (Docusate Sodium) 100 Mg Capsule 1 Cap PO BID [Hydrocodone/Acetaminophen] 1 TAB Tablet 1 Tab PO PRN Q6HRS PRN Reported Premarin (Estrogens, Conjugated) 30 Gm Cream.appl 1 Kristal VG 3X/WEEK Cyclobenzaprine Hcl 10 Mg Tablet 1 Tab PO QHS Losartan Potassium 100 Mg Tablet 100 Mg PO DAILY Oxybutynin Chloride Er (Oxybutynin Chloride) 5 Mg Tab.er.24 1 Tab PO DAILY Furosemide 40 Mg Tablet 1 Tab PO DAILY Gabapentin 300 Mg Capsule 600 Mg PO TID Vitamin B-12 (Cyanocobalamin (Vitamin B-12)) 1,000 Mcg Tablet 500 Mcg PO DAILY Lantus Solostar (Insulin Glargine,Hum.rec.anlog) 100 Unit/1 Ml Insuln.pen 25 Unit SQ QHS Novolog (Insulin Aspart) 100 Unit/1 Ml Cartridge 3 Unit SQ TIDAC Aspirin 81 Mg Tab.chew 81 Mg PO Carvedilol 6.25 Mg Tablet 6.25 Mg PO DAILY Metformin Hcl 500 Mg Tablet 1,000 Mg PO BID Calcium Citrate - Vit D3 Tab (Calcium Citrate/Vitamin D3) 1 Each Tablet 1 Each PO Vitals/I & O Vital Sign - Last 24 Hours 10/16/16 10/16/16 10/16/16 10/16/16 14:34 19:06 19:40 23:34 Temp 98.7 98.9 98.8 98.7 98.9 98.8 Pulse 78 98 80 Resp 17 16 16 B/P 118/69 110/68 141/88 Pulse Ox 97 93 97 O2 Delivery Room Air Room Air Room Air Room Air 10/17/16 10/17/16 10/17/16 10/17/16 03:26 07:00 08:00 10:50 Temp 98.7 98.4 97.5 98.7 98.4 97.5 Pulse 85 86 86 Resp 18 B/P 116/52 116/73 132/93 Pulse Ox 97 95 99 O2 Delivery Room Air Room Air Room Air Room Air Intake and Output 10/16/16 10/16/16 10/17/16 15:00 23:00 07:00 Intake Total 700 ml 200 ml Output Total 650 ml 200 ml Balance 50 ml 0 ml BULMARO HAIRSTON III DO October 17, 2016 11:12
--- NOTE | 2016-10-17 11:41 | PDOC ---
Subjective: Subjective: Stooling, some abd discomfort but improved. 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 Having BMs, tolerating PO. Vital Signs: Vital Signs Date Time Temp Pulse Resp B/P Pulse Ox O2 Delivery O2 Flow Rate FiO2 10/17/16 10:50 97.5 86 19 132/93 99 Room Air 97.5 Labs: Laboratory Tests Test 10/16/16 16:47 10/16/16 20:41 10/17/16 03:50 10/17/16 08:21 Glucose (Fingerstick) 86mg/dL 204mg/dL 78mg/dL White Blood Count 5.8x10^3/uL Red Blood Count 3.34x10^6/uL Hemoglobin 8.6g/dL Hematocrit 26.8% Mean Corpuscular Volume 80fL Mean Corpuscular Hemoglobin 26pg Mean Corpuscular Hemoglobin Concent 32g/dL Red Cell Distribution Width 16.1% Platelet Count 158x10^3/uL Neutrophils (%) (Auto) 47% Lymphocytes (%) (Auto) 42% Monocytes (%) (Auto) 10% Eosinophils (%) (Auto) 1% Basophils (%) (Auto) 0% Neutrophils # (Auto) 2.7x10^3uL Lymphocytes # (Auto) 2.4x10^3/uL Monocytes # (Auto) 0.6x10^3/uL Eosinophils # (Auto) 0.0x10^3/uL Basophils # (Auto) 0.0x10^3/uL Sodium Level 135mmol/L Potassium Level 4.3mmol/L Chloride Level 103mmol/L Carbon Dioxide Level 23mmol/L Anion Gap 9 Blood Urea Nitrogen 50mg/dL Creatinine 2.0mg/dL Estimated GFR (Cockcroft-Gault) 30.8 Glucose Level 122mg/dL Calcium Level 9.0mg/dL Phosphorus Level 3.4mg/dL Magnesium Level 2.5mg/dL Albumin 2.8g/dL PE: GEN: NAD LUNGS: CTAB HEART: RRR ABD: NABS, S/ND/NT NEURO/PSYCH: A & O 3 A/P: Abd discomfort, constipation - improved Abnormal LFTs - improved -s/p prerna -normal liver on imaging -Hep panel neg -h/o DM, ?fatty liver Anemia -Hgb stable -- Continue same per GI (Amitiza 24mcg BID + Miralax BID). Possible DC today if stress test normal - could try Linzess as outpt or even Movantik/Relistor if continues narcotics. Follow-up w/ Dr. Alicea in ~1 month. KINGSTON HURTADO October 17, 2016 11:41
--- NOTE | 2016-10-17 13:02 | PDOC ---
MARGIE CODY MARKETING [employer] INTERN 10/17/16 1302: CARDIO Progress Notes Date and Time Date of Service 10/17/16 Time of Evaluation 1310 Subjective Subjective: No Chest Pain, No shortness of breath, Other (mild abdominal pain and diarrhea ) Vitals Vitals Vital Signs Date Time Temp Pulse Resp B/P Pulse Ox O2 Delivery O2 Flow Rate FiO2 10/17/16 10:50 97.5 86 19 132/93 99 Room Air 97.5 Weight Weight [ ] Input and Output Intake and Output Intake and Output 10/17/16 07:00 Intake Total 900 ml Output Total 850 ml Balance 50 ml Intake Oral 900 ml Output Urine Total 850 ml # Bowel Movements 1 Laboratory Labs Laboratory Tests Test 10/16/16 16:47 10/16/16 20:41 10/17/16 03:50 10/17/16 08:21 Glucose (Fingerstick) 86mg/dL (70-99) 204mg/dL (70-99) 78mg/dL (70-99) White Blood Count 5.8x10^3/uL (4.0-11.0) Red Blood Count 3.34x10^6/uL (3.50-5.40) Hemoglobin 8.6g/dL (12.0-15.5) Hematocrit 26.8% (36.0-47.0) Mean Corpuscular Volume 80fL (79-100) Mean Corpuscular Hemoglobin 26pg (25-35) Mean Corpuscular Hemoglobin Concent 32g/dL (31-37) Red Cell Distribution Width 16.1% (11.5-14.5) Platelet Count 158x10^3/uL (140-400) Neutrophils (%) (Auto) 47% (31-73) Lymphocytes (%) (Auto) 42% (24-48) Monocytes (%) (Auto) 10% (0-9) Eosinophils (%) (Auto) 1% (0-3) Basophils (%) (Auto) 0% (0-3) Neutrophils # (Auto) 2.7x10^3uL (1.8-7.7) Lymphocytes # (Auto) 2.4x10^3/uL (1.0-4.8) Monocytes # (Auto) 0.6x10^3/uL (0.0-1.1) Eosinophils # (Auto) 0.0x10^3/uL (0.0-0.7) Basophils # (Auto) 0.0x10^3/uL (0.0-0.2) Sodium Level 135mmol/L (136-145) Potassium Level 4.3mmol/L (3.5-5.1) Chloride Level 103mmol/L (98-107) Carbon Dioxide Level 23mmol/L (21-32) Anion Gap 9 (6-14) Blood Urea Nitrogen 50mg/dL (7-20) Creatinine 2.0mg/dL (0.6-1.0) Estimated GFR (Cockcroft-Gault) 30.8 Glucose Level 122mg/dL (70-99) Calcium Level 9.0mg/dL (8.5-10.1) Phosphorus Level 3.4mg/dL (2.6-4.7) Magnesium Level 2.5mg/dL (1.8-2.4) Albumin 2.8g/dL (3.4-5.0) Test 10/17/16 11:28 Glucose (Fingerstick) 144mg/dL (70-99) Microbiology Micro Microbiology 10/13/16 Urine Culture - Final, Complete 10/13/16 Urine Culture Result 1 (TANJA) - Final, Complete Physical Exam HEENT: Neck Supple W Full Motion Chest: Symmetric LUNGS: Clear to Auscultation Heart: RRR, murmurs (2/6 systolic murmur ) Abdomen: Soft N/T Extremities: No Edema Neurology: alert, oriented, follow commands Assessment Assessment 1. Elevated troponin: peaked at 0.26 with underlying hyperkalemia/renal insufficiency. CP free 2. Chronic systolic HF with cardiomyopathy: echo shows further depressed LV function with an EF of 20%; compensated 3. CAD: significant lesions but nonobstructive per [facility] 06/2015. No cardiac symptoms 4. ASHLEY on CKD 5. HTN: controlled with meds 6. DM2/HLP 7. Chronic LBBB: episode of NSVT this am. Mg 2.5, TSH WNL 8. Abdominal pain/constipation/transaminitis: now having diarrhea; GI following Recommendations Continue secondary prevention measures/optimization therapy MPI underway today to r/o underlying ischemia Consider LifeVest at discharge Repeat echo in 3-4 months to assess need for AICD in prevention of SCD Management of abdominal pain/constipation/diarrhea per GI. LAUREL MENDOZA MD 10/17/16 1650: CARDIO Progress Notes Assessment Assessment Patient seen and examined. 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
--- NOTE | 2016-10-17 13:59 | RAD ---
APPROVED REPORT Test Type: Pharmacological Stress Nurse/Tech: Gisele Blanc R.N. Test Indications: C/P Cardiac History: Hypertension, heart cath 2011 Medications: See Electronic Medical Record Medical History: See Electronic Medical Record Resting ECG: SR W/ LBBB- QRS .18 (St elevation in leads V1-V6) Resting Heart Rate: 74 bpm Resting Blood Pressure: 153/73mmHg Pretest Chest Pain: No chest pain Nurse/Tech Notes S1S2, lungs CTA Consent: The procedure was explained to the patient in lay terms. Informed consent was witnessed. Brigido eout was entered into [employer]. History and Stress Test performed by RT Anselmo (Ger) (N) Pharm. Details Pharmacologic stress testing was performed using 0.4mg per 5ml of regadenoson given intravenously ove r 7-10 seconds. Stress Symptoms SOB, h/a at the very end of recovery POST EXERCISE Reason for Termination: Infusion complete Max HR: 105 bpm Max Blood Pressure: 153/73mmHg Blood Pressure response to exercise: Normal blood pressure response during stress. Heart Rate response to exercise: wnl Chest Pain: No. Arrhythmia: No. ST Change: No. INTERPRETATION Stress EKG Conclusion: Baseline EKG showed sinus rhythm with intraventricular conduction delay. Nondi agnostic changes at peak stress. No significant arrhythmias. Imaging Protocol IMAGE PROTOCOL: Rest Tc-99m/stress Tc-99m 1 day Rest: Stress: Viability: Radiopharm.Tc99m [id number] Sestamibi Dose12.2mCi 33.6mCi Duration 15min. 10min. Img Date 10/17/2016 10/17/2016 Inj-Img [id number]. 60min. Rest Admin Site:IV - Right HandAdministrator:RT Cece (Ger)(N) Stress Admin Site: IV - Right HandAdministrator: RT Montserrat Briones)(N) STRESS DATA End Diast. Vol.136.0mlAv. Heart Rate96.0bpm End Syst. Vol.93.0mlCO Index BSA0.0L/min Myocardial Vlhr629.0gEject. Faqurvpu42.0% Stress Rates Pk. Fill Rate1.91EDV/secLVtime Pk. Fill 117.26msec Pk. Empty Rate2.73ESV/secLVtime Pk. Cidtv790.88msec 1/3 Pk. Fill0.38EDV/sec Stress Scores Regional WT3.00Summed WT29.00 Regional WM1.00Summed WM40.00 LV Perfusion Scintigraphic images showed fixed inferior wall defect most probably diaphragmatic attenuation artifa ct. No other fixed or reversible defects seen. Wall Motion Moderate global left ventricle systolic dysfunction with ejection fraction calculated at 32%. LV Perf. Quant 17 Seg. SSS12.00 17 Seg. SRS5.00 17 Seg. SDS7.00 Stress Defect Extent (% LAD)25.60Rest Defect Extent (% LAD)6.90Rev. Defect Extent (% LAD)15.60 Stress Defect Extent (% LCX) 43.80Rest Defect Extent (% LCX)25.00Rev. Defect Extent (% LCX)8.80 Stress Defect Extent (% RCA)3.30Rest Defect Extent (% RCA)1.10Rev. Defect Extent (% RCA)0.00 Stress Defect Extent (% IGOR)23.70Rest Defect Extent (% IGOR)10.90Rev. Defect Extent (% IGOR)8.30 Conclusion 1. Regadenoson cardioisotope stress test showed diaphragmatic attenuation artifact without any diagno stic evidence of ischemia or infarct. 2. Moderate global left ventricle systolic dysfunction with ejection fraction calculated at 32%. 3. Intermediate risk for cardiac events based on diminished left ventricle systolic function.
[2016-10-17] MEDS: LUBIPROSTONE 8 MCG CAPSULE PO SCH ×2 (14:13→17:00)
[2016-10-17] MEDS: METOCLOPRAMIDE 5 MG TABLET. PO SCH (14:13)
[2016-10-17] MEDS: PANTOPRAZOLE 40 MG TABLET.DR. PO SCH (14:13)
[2016-10-17] MEDS: CYANOCOBALAMIN (VITAMIN B-12) 1,000 MCG TABLET. PO SCH (14:13)
[2016-10-17] MEDS: ASCORBIC ACID 500 MG TABLET PO SCH (14:14)
[2016-10-17] MEDS: ASPIRIN CHEWABLE 81 MG TABLET. PO SCH (14:14)
[2016-10-17] MEDS: CARVEDILOL 6.25 MG TABLET. PO SCH (14:14)
[2016-10-17] MEDS: DOCUSATE SODIUM 100 MG CAPSULE. PO SCH (14:14)
[2016-10-17] MEDS: OXYBUTYNIN CHLORIDE 5 MG TABLET PO SCH (14:14)
[2016-10-17] MEDS: POLYETHYLENE GLYCOL 3350 17 GM PACKET. PO SCH ×2 (14:14→21:17)
[2016-10-17 15:09] VITALS: BP 121/76
--- NOTE | 2016-10-17 15:16 | PDOC ---
SUBJECTIVE ROS CKD III now having diarrhea after Bowel regimen to relieve constipation CVS: no Orthopnea, no CP RESP: no SOB, no PHILLIPS GI: no Nausea, no Vomiting : no Dysuria, no Urgency OBJECTIVE Vital Signs Vital Signs Date Time Temp Pulse Resp B/P Pulse Ox O2 Delivery O2 Flow Rate FiO2 10/17/16 15:09 97.3 100 20 121/76 Room Air 97.3 10/17/16 10:50 99 I & 0 Intake and Output 10/17/16 07:00 Intake Total 900 ml Output Total 850 ml Balance 50 ml Intake Oral 900 ml Output Urine Total 850 ml # Bowel Movements 1 PHYSICAL EXAM Physical Exam General Appearance: Awake Alert Oriented x 3 In no Distress Eyes: ? dec VIsion Conjunctiva Normal EN: No EN Drainage Mucous Memb. moist Neck: no JVD no JVP Supple no Thyromegaly CVS: S1 S2 ? Murmur No Gallop No Rub no Edema Resp: no Rales no Rhonchi no Acc. Muscle use GI: BAS +ve NO Bruit Non Tender Non Distended : no CVA tenderness; no Suprapubic Tenderness Assessment & Plan CKD III - this appearst o be her baseline. HTNSive + Dm /NS. baseline Creat NA from OP setting. Current FLuid and E-lyte status does not necessitate emergent need for Dialysis. Will re-evaluate for Dialysis in am, R/o Paraproteinemia with ongoing 24-hr Urine collection Protein Gap with Low Alb - checking PEPS Proteinruia (ch for ~ 1 yr) as noted by pt per PCP - quantitate with 24-hr URine as ongoing ? Constipation - now had BM after laxatives and followed by diarrhea Anemia: Iron is OK, may need Epogen Transfuse as needed HTN: Current BP meds reviewed. See orders for changes. SEv Cmyoaphty ase noted on ECHO - if this is new onset - it may explain gradually rising creat too. Discussed Plan of Care and prognosis etc. at length with pt COMMENT/RELEVANT DATA Meds Current Medications Medications (Trade) Dose Ordered Sig/Wilfrid Start Time Stop Time Status Last Admin Dose Admin Acetaminophen/ Hydrocodone Bitart (Lortab 5/325) 1 tab PRN Q6HRS PRN 10/14/16 00:15 10/14/16 09:11 1 TAB Ascorbic Acid (Vitamin C) 500 mg DAILY 10/14/16 09:00 10/17/16 14:14 500 MG Aspirin (Children'S Aspirin) 81 mg DAILY 10/14/16 09:00 10/17/16 14:14 81 MG Aspirin (Ecotrin) 325 mg 1X ONCE 10/13/16 21:30 10/13/16 21:31 DC 10/13/16 21:40 325 MG Bisacodyl (Dulcolax Supp) 10 mg PRN DAILY PRN 10/14/16 12:00 Carvedilol (Coreg) 6.25 mg DAILYWBKFT 10/14/16 08:00 10/17/16 14:14 6.25 MG Cyanocobalamin (Vitamin B-12) 500 mcg DAILY 10/14/16 09:00 10/17/16 14:13 500 MCG Docusate Sodium (Colace) 100 mg DAILY 10/14/16 09:00 10/17/16 14:14 100 MG Furosemide (Lasix) 40 mg DAILY 10/14/16 09:00 10/14/16 12:50 DC Gabapentin (Neurontin) 600 mg BID 10/14/16 09:00 10/14/16 17:27 600 MG Insulin Aspart (Novolog) 3 units TIDAC 10/14/16 07:30 10/16/16 12:12 3 UNITS Insulin Detemir (Levemir) 25 units QHS 10/14/16 21:00 10/16/16 20:42 25 UNITS Lubiprostone (Amitiza) 24 mcg BIDWMEALS 10/14/16 17:00 10/17/16 14:13 24 MCG Magnesium Hydroxide (Milk Of Magnesia) 2,400 mg PRN DAILY PRN 10/13/16 23:45 Magnesium Citrate (Citroma) 296 ml 1X ONCE 10/15/16 15:00 10/15/16 15:15 DC Magnesium Sulfate/ Dextrose (Magnesium Sulfate PREMIX 2GM) 50 ml @ 25 mls/hr PRN DAILY PRN 10/14/16 12:30 10/15/16 15:15 DC Metformin HCl (Glucophage) 1,000 mg BID 10/14/16 09:00 UNV Metoclopramide HCl (Reglan) 5 mg DAILY 10/14/16 09:00 10/17/16 14:13 5 MG Morphine Sulfate 2 mg PRN Q2HR PRN 10/13/16 22:45 10/14/16 22:44 DC Nitroglycerin (Nitrostat) 0.4 mg PRN Q5MIN PRN 10/13/16 22:45 10/14/16 22:44 DC Ondansetron HCl (Zofran) 4 mg PRN Q8HRS PRN 10/13/16 22:45 10/14/16 22:44 DC Oxybutynin Chloride (Ditropan) 5 mg DAILY 10/14/16 09:00 10/17/16 14:14 5 MG Pantoprazole Sodium 40 mg 40 mg DAILYAC 10/14/16 12:00 10/17/16 14:13 40 MG Polyethylene Glycol (miraLAX PACKET) 17 gm BID 10/14/16 21:00 10/17/16 14:14 17 GM Regadenoson (Lexiscan) 0.4 mg 1X ONCE 10/17/16 08:30 10/17/16 08:31 DC 10/17/16 10:02 0.4 MG Simethicone (Gas-X) 80 mg PRN AFTMEALHC PRN 10/13/16 23:45 Sodium Biphosphate/ Sodium Phosphate (Fleet Adult) 133 ml PRN DAILY PRN 10/13/16 23:45 10/14/16 12:50 DC Sodium Polystyrene Sulfonate (Kayexalate) 15 gm 1X ONCE 10/15/16 15:00 10/15/16 15:10 DC 10/15/16 15:20 15 GM Lab Laboratory Tests Test 10/16/16 16:47 10/16/16 20:41 10/17/16 03:50 10/17/16 08:21 Glucose (Fingerstick) 86mg/dL (70-99) 204mg/dL (70-99) 78mg/dL (70-99) White Blood Count 5.8x10^3/uL (4.0-11.0) Red Blood Count 3.34x10^6/uL (3.50-5.40) Hemoglobin 8.6g/dL (12.0-15.5) Hematocrit 26.8% (36.0-47.0) Mean Corpuscular Volume 80fL (79-100) Mean Corpuscular Hemoglobin 26pg (25-35) Mean Corpuscular Hemoglobin Concent 32g/dL (31-37) Red Cell Distribution Width 16.1% (11.5-14.5) Platelet Count 158x10^3/uL (140-400) Neutrophils (%) (Auto) 47% (31-73) Lymphocytes (%) (Auto) 42% (24-48) Monocytes (%) (Auto) 10% (0-9) Eosinophils (%) (Auto) 1% (0-3) Basophils (%) (Auto) 0% (0-3) Neutrophils # (Auto) 2.7x10^3uL (1.8-7.7) Lymphocytes # (Auto) 2.4x10^3/uL (1.0-4.8) Monocytes # (Auto) 0.6x10^3/uL (0.0-1.1) Eosinophils # (Auto) 0.0x10^3/uL (0.0-0.7) Basophils # (Auto) 0.0x10^3/uL (0.0-0.2) Sodium Level 135mmol/L (136-145) Potassium Level 4.3mmol/L (3.5-5.1) Chloride Level 103mmol/L (98-107) Carbon Dioxide Level 23mmol/L (21-32) Anion Gap 9 (6-14) Blood Urea Nitrogen 50mg/dL (7-20) Creatinine 2.0mg/dL (0.6-1.0) Estimated GFR (Cockcroft-Gault) 30.8 Glucose Level 122mg/dL (70-99) Calcium Level 9.0mg/dL (8.5-10.1) Phosphorus Level 3.4mg/dL (2.6-4.7) Magnesium Level 2.5mg/dL (1.8-2.4) Albumin 2.8g/dL (3.4-5.0) Test 10/17/16 11:28 Glucose (Fingerstick) 144mg/dL (70-99) INGRID LOMBARDI MD October 17, 2016 15:16
[2016-10-17 15:24] LABS: KAPPA LAMBDA RATIO 1.05 (0.26-1.65)
[2016-10-17 17:13] LABS: PROTEIN 24 HR UR 199 mg/24 hr (30-150); TOTAL SERUM CREATININE 1.58 mg/dL (0.57-1.00); TOTAL URINE CREATININE 66.7 mg/dL (Not Estab.)
[2016-10-17 19:00] VITALS: BP 116/66
[2016-10-17] MEDS: INSULIN DETEMIR 300 UNITS/3 ML INSULN.PEN. SQ SCH (21:51)
[2016-10-17 23:00] VITALS: BP 139/70
[2016-10-18 03:00] VITALS: BP 123/53
[2016-10-18 04:55] LABS: BASO % 1 % (0-3); EOS % 2 % (0-3); HEMATOCRIT 26.1 % (36.0-47.0); HEMOGLOBIN 8.6 g/dL (12.0-15.5); LYMPH # 2.1 x10^3/uL (1.0-4.8); LYMPH % 47 % (24-48); MEAN CORPUSCULAR HEMOGLOBIN 26 pg (25-35); MEAN CORPUSCULAR HGB CONC 33 g/dL (31-37); MEAN CORPUSCULAR VOLUME 80 fL (79-100); MONO % 11 % (0-9); NEUT % 40 % (31-73); PLATELET COUNT 150 x10^3/uL (140-400); RED BLOOD COUNT 3.26 x10^6/uL (3.50-5.40); RED CELL DISTRIBUTION WIDTH 15.9 % (11.5-14.5); WHITE BLOOD COUNT 4.6 x10^3/uL (4.0-11.0)
[2016-10-18 05:15] LABS: ALBUMIN 2.7 g/dL (3.4-5.0); CALCIUM 9.1 mg/dL (8.5-10.1); CREATININE 1.6 mg/dL (0.6-1.0); GFR 39.8; POTASSIUM 4.2 mmol/L (3.5-5.1)
[2016-10-18 07:00] VITALS: BP 142/70
[2016-10-18] MEDS: INSULIN ASPART 300 UNITS/3 ML INSULN.PEN SQ SCH ×3 (07:30→18:05)
[2016-10-18] MEDS: GABAPENTIN 300 MG CAPSULE. PO SCH (09:00)
[2016-10-18] MEDS: LUBIPROSTONE 8 MCG CAPSULE PO SCH ×2 (10:02→18:00)
[2016-10-18] MEDS: OXYBUTYNIN CHLORIDE 5 MG TABLET PO SCH (10:02)
[2016-10-18] MEDS: METOCLOPRAMIDE 5 MG TABLET. PO SCH (10:03)
[2016-10-18] MEDS: ASPIRIN CHEWABLE 81 MG TABLET. PO SCH (10:03)
[2016-10-18] MEDS: CYANOCOBALAMIN (VITAMIN B-12) 1,000 MCG TABLET. PO SCH (10:03)
[2016-10-18] MEDS: ASCORBIC ACID 500 MG TABLET PO SCH (10:03)
[2016-10-18] MEDS: DOCUSATE SODIUM 100 MG CAPSULE. PO SCH (10:03)
[2016-10-18] MEDS: PANTOPRAZOLE 40 MG TABLET.DR. PO SCH (10:03)
[2016-10-18] MEDS: CARVEDILOL 6.25 MG TABLET. PO SCH (10:03)
[2016-10-18] MEDS: POLYETHYLENE GLYCOL 3350 17 GM PACKET. PO SCH (10:04)
--- NOTE | 2016-10-18 10:43 | PDOC ---
Subjective: Subjective: Feeling better, stooling w/o issue, ready to DC. Objective: Objective: D/w Dr. Khan - [facility] today. No new GI concerns per RN. Other notes say she has reported diarrhea. Vital Signs: Vital Signs Date Time Temp Pulse Resp B/P Pulse Ox O2 Delivery O2 Flow Rate FiO2 10/18/16 10:03 72 142/70 10/18/16 07:00 98.5 16 96 Room Air 98.5 Labs: Laboratory Tests Test 10/17/16 11:28 10/17/16 16:47 10/17/16 21:16 10/18/16 03:20 Glucose (Fingerstick) 144mg/dL 183mg/dL 177mg/dL Sodium Level 136mmol/L Potassium Level 4.2mmol/L Chloride Level 104mmol/L Carbon Dioxide Level 24mmol/L Anion Gap 8 Blood Urea Nitrogen 50mg/dL Creatinine 1.6mg/dL Estimated GFR (Cockcroft-Gault) 39.8 Glucose Level 123mg/dL Calcium Level 9.1mg/dL Phosphorus Level 4.0mg/dL Magnesium Level 2.4mg/dL Albumin 2.7g/dL Test 10/18/16 03:25 10/18/16 08:04 White Blood Count 4.6x10^3/uL Red Blood Count 3.26x10^6/uL Hemoglobin 8.6g/dL Hematocrit 26.1% Mean Corpuscular Volume 80fL Mean Corpuscular Hemoglobin 26pg Mean Corpuscular Hemoglobin Concent 33g/dL Red Cell Distribution Width 15.9% Platelet Count 150x10^3/uL Neutrophils (%) (Auto) 40% Lymphocytes (%) (Auto) 47% Monocytes (%) (Auto) 11% Eosinophils (%) (Auto) 2% Basophils (%) (Auto) 1% Neutrophils # (Auto) 1.8x10^3uL Lymphocytes # (Auto) 2.1x10^3/uL Monocytes # (Auto) 0.5x10^3/uL Eosinophils # (Auto) 0.1x10^3/uL Basophils # (Auto) 0.0x10^3/uL Glucose (Fingerstick) 70mg/dL Imaging: MPI Conclusion 1. Regadenoson cardioisotope stress test showed diaphragmatic attenuation artifact without any diagnostic evidence of ischemia or infarct. 2. Moderate global left ventricle systolic dysfunction with ejection fraction calculated at 32%. 3. Intermediate risk for cardiac events based on diminished left ventricle systolic function. PE: GEN: NAD, sitting on edge of bed ABD: S/ND/NT NEURO/PSYCH: A & O 3 A/P: Abd discomfort, constipation - improved -on Amitiza 24mcg BID + Miralax BID -reports normal colonoscopy in 2011 ---> Dr. Khan has recommended repeating this Anemia -Hgb stable -- Dc okay per GI - follow-up w/ Dr. Alicea to discuss colonoscopy as recommended by IPC or to discuss further treatment of constipation. KINGSTON HURTADO October 18, 2016 10:43
[2016-10-18 11:00] VITALS: BP 139/66
--- NOTE | 2016-10-18 12:04 | PDOC ---
SUBJECTIVE ROS CKD III Feeling better today CVS: no Orthopnea, no CP RESP: no SOB, no PHILLIPS GI: no Nausea, no Vomiting : no Dysuria, no Urgency OBJECTIVE Vital Signs Vital Signs Date Time Temp Pulse Resp B/P Pulse Ox O2 Delivery O2 Flow Rate FiO2 10/18/16 10:03 72 142/70 10/18/16 08:00 Room Air 10/18/16 07:00 98.5 16 96 98.5 I & 0 Intake and Output 10/18/16 07:00 Intake Total 1000 ml Output Total 400 ml Balance 600 ml Intake Oral 1000 ml Output Urine Total 400 ml # Voids 4 PHYSICAL EXAM Physical Exam General Appearance: Awake Alert Oriented x 3 In no Distress Eyes: ? dec VIsion Conjunctiva Normal EN: No EN Drainage Mucous Memb. moist Neck: no JVD no JVP Supple no Thyromegaly CVS: S1 S2 ? Murmur No Gallop No Rub no Edema Resp: no Rales no Rhonchi no Acc. Muscle use GI: BAS +ve NO Bruit Non Tender Non Distended : no CVA tenderness; no Suprapubic Tenderness Assessment & Plan CKD III - this appears to be her baseline. HTNSive + Dm /NS. baseline Creat NA from OP setting. Current FLuid and E-lyte status does not necessitate emergent need for Dialysis. Will re-evaluate for Dialysis in am, R/o Paraproteinemia with 24-hr Urine collection Protein Gap with Low Alb - checking PEPS Proteinruia (ch for ~ 1 yr) as noted by pt per PCP - minimal as quantitated with 24-hr URine (? Urine Volume) Anemia: Iron is OK, may need Epogen Transfuse as needed HTN: Current BP meds reviewed. See orders for changes. SEv Cmyoaphty ase noted on ECHO - if this is new onset - it may explain ^ed creat too. Discussed Plan of Care and prognosis etc. at length with pt COMMENT/RELEVANT DATA Meds Current Medications Medications (Trade) Dose Ordered Sig/Wilfrid Start Time Stop Time Status Last Admin Dose Admin Acetaminophen/ Hydrocodone Bitart (Lortab 5/325) 1 tab PRN Q6HRS PRN 10/14/16 00:15 10/14/16 09:11 1 TAB Ascorbic Acid (Vitamin C) 500 mg DAILY 10/14/16 09:00 10/18/16 10:03 500 MG Aspirin (Children'S Aspirin) 81 mg DAILY 10/14/16 09:00 10/18/16 10:03 81 MG Aspirin (Ecotrin) 325 mg 1X ONCE 10/13/16 21:30 10/13/16 21:31 DC 10/13/16 21:40 325 MG Bisacodyl (Dulcolax Supp) 10 mg PRN DAILY PRN 10/14/16 12:00 Carvedilol (Coreg) 6.25 mg DAILYWBKFT 10/14/16 08:00 10/18/16 10:03 6.25 MG Cyanocobalamin (Vitamin B-12) 500 mcg DAILY 10/14/16 09:00 10/18/16 10:03 500 MCG Docusate Sodium (Colace) 100 mg DAILY 10/14/16 09:00 10/18/16 10:03 100 MG Furosemide (Lasix) 40 mg DAILY 10/14/16 09:00 10/14/16 12:50 DC Gabapentin (Neurontin) 600 mg BID 10/14/16 09:00 10/14/16 17:27 600 MG Insulin Aspart (Novolog) 3 units TIDAC 10/14/16 07:30 10/17/16 18:04 3 UNITS Insulin Detemir (Levemir) 25 units QHS 10/14/16 21:00 10/17/16 21:51 25 UNITS Lubiprostone (Amitiza) 24 mcg BIDWMEALS 10/14/16 17:00 10/18/16 10:02 24 MCG Magnesium Hydroxide (Milk Of Magnesia) 2,400 mg PRN DAILY PRN 10/13/16 23:45 Magnesium Citrate (Citroma) 296 ml 1X ONCE 10/15/16 15:00 10/15/16 15:15 DC Magnesium Sulfate/ Dextrose (Magnesium Sulfate PREMIX 2GM) 50 ml @ 25 mls/hr PRN DAILY PRN 10/14/16 12:30 10/15/16 15:15 DC Metformin HCl (Glucophage) 1,000 mg BID 10/14/16 09:00 UNV Metoclopramide HCl (Reglan) 5 mg DAILY 10/14/16 09:00 10/18/16 10:03 5 MG Morphine Sulfate 2 mg PRN Q2HR PRN 10/13/16 22:45 10/14/16 22:44 DC Nitroglycerin (Nitrostat) 0.4 mg PRN Q5MIN PRN 10/13/16 22:45 10/14/16 22:44 DC Ondansetron HCl (Zofran) 4 mg PRN Q8HRS PRN 10/13/16 22:45 10/14/16 22:44 DC Oxybutynin Chloride (Ditropan) 5 mg DAILY 10/14/16 09:00 10/18/16 10:02 5 MG Pantoprazole Sodium 40 mg 40 mg DAILYAC 10/14/16 12:00 10/18/16 10:03 40 MG Polyethylene Glycol (miraLAX PACKET) 17 gm BID 10/14/16 21:00 10/18/16 10:04 17 GM Regadenoson (Lexiscan) 0.4 mg 1X ONCE 10/17/16 08:30 10/17/16 08:31 DC 10/17/16 10:02 0.4 MG Simethicone (Gas-X) 80 mg PRN AFTMEALHC PRN 10/13/16 23:45 Sodium Biphosphate/ Sodium Phosphate (Fleet Adult) 133 ml PRN DAILY PRN 10/13/16 23:45 10/14/16 12:50 DC Sodium Polystyrene Sulfonate (Kayexalate) 15 gm 1X ONCE 10/15/16 15:00 10/15/16 15:10 DC 10/15/16 15:20 15 GM Lab Laboratory Tests Test 10/17/16 16:47 10/17/16 21:16 10/18/16 03:20 10/18/16 03:25 Glucose (Fingerstick) 183mg/dL (70-99) 177mg/dL (70-99) Sodium Level 136mmol/L (136-145) Potassium Level 4.2mmol/L (3.5-5.1) Chloride Level 104mmol/L (98-107) Carbon Dioxide Level 24mmol/L (21-32) Anion Gap 8 (6-14) Blood Urea Nitrogen 50mg/dL (7-20) Creatinine 1.6mg/dL (0.6-1.0) Estimated GFR (Cockcroft-Gault) 39.8 Glucose Level 123mg/dL (70-99) Calcium Level 9.1mg/dL (8.5-10.1) Phosphorus Level 4.0mg/dL (2.6-4.7) Magnesium Level 2.4mg/dL (1.8-2.4) Albumin 2.7g/dL (3.4-5.0) White Blood Count 4.6x10^3/uL (4.0-11.0) Red Blood Count 3.26x10^6/uL (3.50-5.40) Hemoglobin 8.6g/dL (12.0-15.5) Hematocrit 26.1% (36.0-47.0) Mean Corpuscular Volume 80fL (79-100) Mean Corpuscular Hemoglobin 26pg (25-35) Mean Corpuscular Hemoglobin Concent 33g/dL (31-37) Red Cell Distribution Width 15.9% (11.5-14.5) Platelet Count 150x10^3/uL (140-400) Neutrophils (%) (Auto) 40% (31-73) Lymphocytes (%) (Auto) 47% (24-48) Monocytes (%) (Auto) 11% (0-9) Eosinophils (%) (Auto) 2% (0-3) Basophils (%) (Auto) 1% (0-3) Neutrophils # (Auto) 1.8x10^3uL (1.8-7.7) Lymphocytes # (Auto) 2.1x10^3/uL (1.0-4.8) Monocytes # (Auto) 0.5x10^3/uL (0.0-1.1) Eosinophils # (Auto) 0.1x10^3/uL (0.0-0.7) Basophils # (Auto) 0.0x10^3/uL (0.0-0.2) Test 10/18/16 08:04 Glucose (Fingerstick) 70mg/dL (70-99) INGRID LOMBARDI MD October 18, 2016 12:04
--- NOTE | 2016-10-18 13:56 | PDOC ---
CARDIO Progress Notes Date and Time Date of Service 10/18/16 Time of Evaluation 1110 Subjective Subjective: No Chest Pain, No shortness of breath, Other Vitals Vitals Vital Signs Date Time Temp Pulse Resp B/P Pulse Ox O2 Delivery O2 Flow Rate FiO2 10/18/16 11:00 98.2 76 18 139/66 97 Room Air 98.2 Weight Weight [ ] Input and Output Intake and Output Intake and Output 10/18/16 07:00 Intake Total 1000 ml Output Total 400 ml Balance 600 ml Intake Oral 1000 ml Output Urine Total 400 ml # Voids 4 Laboratory Labs Laboratory Tests Test 10/17/16 16:47 10/17/16 21:16 10/18/16 03:20 10/18/16 03:25 Glucose (Fingerstick) 183mg/dL (70-99) 177mg/dL (70-99) Sodium Level 136mmol/L (136-145) Potassium Level 4.2mmol/L (3.5-5.1) Chloride Level 104mmol/L (98-107) Carbon Dioxide Level 24mmol/L (21-32) Anion Gap 8 (6-14) Blood Urea Nitrogen 50mg/dL (7-20) Creatinine 1.6mg/dL (0.6-1.0) Estimated GFR (Cockcroft-Gault) 39.8 Glucose Level 123mg/dL (70-99) Calcium Level 9.1mg/dL (8.5-10.1) Phosphorus Level 4.0mg/dL (2.6-4.7) Magnesium Level 2.4mg/dL (1.8-2.4) Albumin 2.7g/dL (3.4-5.0) White Blood Count 4.6x10^3/uL (4.0-11.0) Red Blood Count 3.26x10^6/uL (3.50-5.40) Hemoglobin 8.6g/dL (12.0-15.5) Hematocrit 26.1% (36.0-47.0) Mean Corpuscular Volume 80fL (79-100) Mean Corpuscular Hemoglobin 26pg (25-35) Mean Corpuscular Hemoglobin Concent 33g/dL (31-37) Red Cell Distribution Width 15.9% (11.5-14.5) Platelet Count 150x10^3/uL (140-400) Neutrophils (%) (Auto) 40% (31-73) Lymphocytes (%) (Auto) 47% (24-48) Monocytes (%) (Auto) 11% (0-9) Eosinophils (%) (Auto) 2% (0-3) Basophils (%) (Auto) 1% (0-3) Neutrophils # (Auto) 1.8x10^3uL (1.8-7.7) Lymphocytes # (Auto) 2.1x10^3/uL (1.0-4.8) Monocytes # (Auto) 0.5x10^3/uL (0.0-1.1) Eosinophils # (Auto) 0.1x10^3/uL (0.0-0.7) Basophils # (Auto) 0.0x10^3/uL (0.0-0.2) Test 10/18/16 08:04 10/18/16 12:46 Glucose (Fingerstick) 70mg/dL (70-99) 152mg/dL (70-99) Microbiology Micro Microbiology 10/13/16 Urine Culture - Final, Complete 10/13/16 Urine Culture Result 1 (TANJA) - Final, Complete Physical Exam HEENT: Neck Supple W Full Motion Chest: Symmetric LUNGS: Clear to Auscultation Heart: RRR, murmurs (2/6 systolic murmur ) Abdomen: Soft N/T Extremities: No Edema Neurology: alert, oriented, follow commands Assessment Assessment 1. Elevated troponin: peaked at 0.26 with underlying hyperkalemia/renal insufficiency. CP free 2. Chronic systolic HF with cardiomyopathy: echo shows further depressed LV function with an EF of 20%; compensated 3. CAD: significant lesions but nonobstructive per [facility] 06/2015. No cardiac symptoms 4. ASHLEY on CKD 5. HTN: controlled with meds 6. DM2/HLP 7. Chronic LBBB: episode of NSVT this am. Mg 2.5, TSH WNL 8. Abdominal pain/constipation/transaminitis: now having diarrhea; GI following Recommendations Continue secondary prevention measures/optimization therapy MPI without diagnostic evidence of ischemia Discussed LifeVest for prevention of SCD given NICM; patient considering. Repeat echo in 3 months to assess need for AICD implantation in prevention of SCD Management of abdominal pain/constipation/diarrhea per GI. MARGIE CODY APRN October 18, 2016 13:56
--- NOTE | 2016-10-18 14:21 | PDOC ---
PROGRESS NOTES Chief Complaint Chief Complaint cc: Chest pain, abdominal pain. s/p L 2nd toe amputation Diabetes Mellitus type II Chronic diastolic CHF CAD Prior pacemaker with subsequent removal ASHLEY/CKD, creatinine of 1.7 on admission HTN GERD Osteoarthritis History of Present Illness History of Present Illness Pt was sitting up in bed Reports constipation has improved Complains of small hemorrhoids which has occurred in the past with no resolution with steroids Otherwise no acute complaints Vitals Vitals Vital Signs Date Time Temp Pulse Resp B/P Pulse Ox O2 Delivery O2 Flow Rate FiO2 10/18/16 11:00 98.2 76 18 139/66 97 Room Air 98.2 Physical Exam General: Alert, Oriented X3, Cooperative, No acute distress Heart: Regular rate (SR with LBBB), Normal S1, Normal S2, Other (2/6 systolic murmur to LLS border) Lungs: Clear, Other (diminished inspiratory effort. negative chest retractions and/or accessory muscle use. ) Abdomen: Soft, Other (diffuse tenderness to palpation. Negative peritoneal signs. ) Extremities: No clubbing, No cyanosis, No edema Skin: No breakdown, No significant lesion, Other Labs LABS Laboratory Tests Test 10/17/16 16:47 10/17/16 21:16 10/18/16 03:20 10/18/16 03:25 Glucose (Fingerstick) 183mg/dL (70-99) 177mg/dL (70-99) Sodium Level 136mmol/L (136-145) Potassium Level 4.2mmol/L (3.5-5.1) Chloride Level 104mmol/L (98-107) Carbon Dioxide Level 24mmol/L (21-32) Anion Gap 8 (6-14) Blood Urea Nitrogen 50mg/dL (7-20) Creatinine 1.6mg/dL (0.6-1.0) Estimated GFR (Cockcroft-Gault) 39.8 Glucose Level 123mg/dL (70-99) Calcium Level 9.1mg/dL (8.5-10.1) Phosphorus Level 4.0mg/dL (2.6-4.7) Magnesium Level 2.4mg/dL (1.8-2.4) Albumin 2.7g/dL (3.4-5.0) White Blood Count 4.6x10^3/uL (4.0-11.0) Red Blood Count 3.26x10^6/uL (3.50-5.40) Hemoglobin 8.6g/dL (12.0-15.5) Hematocrit 26.1% (36.0-47.0) Mean Corpuscular Volume 80fL (79-100) Mean Corpuscular Hemoglobin 26pg (25-35) Mean Corpuscular Hemoglobin Concent 33g/dL (31-37) Red Cell Distribution Width 15.9% (11.5-14.5) Platelet Count 150x10^3/uL (140-400) Neutrophils (%) (Auto) 40% (31-73) Lymphocytes (%) (Auto) 47% (24-48) Monocytes (%) (Auto) 11% (0-9) Eosinophils (%) (Auto) 2% (0-3) Basophils (%) (Auto) 1% (0-3) Neutrophils # (Auto) 1.8x10^3uL (1.8-7.7) Lymphocytes # (Auto) 2.1x10^3/uL (1.0-4.8) Monocytes # (Auto) 0.5x10^3/uL (0.0-1.1) Eosinophils # (Auto) 0.1x10^3/uL (0.0-0.7) Basophils # (Auto) 0.0x10^3/uL (0.0-0.2) Test 10/18/16 08:04 10/18/16 12:46 Glucose (Fingerstick) 70mg/dL (70-99) 152mg/dL (70-99) Review of Systems Review of Systems Denies Chest pain Denies SOA Denies N/V/D Assessment and Plan Assessmemt and Plan Problems Medical Problems: (1) Abdominal pain Status: Acute (2) Chest pain Status: Acute (3) Elevated troponin Status: Acute Assessment Elevated troponin Chronic systolic HF with cardiomyopathy: echo shows further depressed LV function with an EF of 20%; compensated CAD: No cardiac symptoms ASHLEY on CKD HTN DM2 Chronic LBBB: episode of NSVT this am. Mg 2.5, TSH WNL Abdominal pain/constipation Plan Appreciate subspecialty input - awaiting ok to DC Probable DC tomorrow Continue current meds for HTN, DM2 Check labs in am Consult PT/OT GI following - f/u in clinic in regards to hemorrhoids Problems: Comment Review of Relevant I have reviewed the following items bro (where applicable) has been applied. Labs Laboratory Tests Test 10/16/16 16:47 10/16/16 20:41 10/17/16 03:50 10/17/16 08:21 Glucose (Fingerstick) 86mg/dL (70-99) 204mg/dL (70-99) 78mg/dL (70-99) White Blood Count 5.8x10^3/uL (4.0-11.0) Red Blood Count 3.34x10^6/uL (3.50-5.40) Hemoglobin 8.6g/dL (12.0-15.5) Hematocrit 26.8% (36.0-47.0) Mean Corpuscular Volume 80fL (79-100) Mean Corpuscular Hemoglobin 26pg (25-35) Mean Corpuscular Hemoglobin Concent 32g/dL (31-37) Red Cell Distribution Width 16.1% (11.5-14.5) Platelet Count 158x10^3/uL (140-400) Neutrophils (%) (Auto) 47% (31-73) Lymphocytes (%) (Auto) 42% (24-48) Monocytes (%) (Auto) 10% (0-9) Eosinophils (%) (Auto) 1% (0-3) Basophils (%) (Auto) 0% (0-3) Neutrophils # (Auto) 2.7x10^3uL (1.8-7.7) Lymphocytes # (Auto) 2.4x10^3/uL (1.0-4.8) Monocytes # (Auto) 0.6x10^3/uL (0.0-1.1) Eosinophils # (Auto) 0.0x10^3/uL (0.0-0.7) Basophils # (Auto) 0.0x10^3/uL (0.0-0.2) Sodium Level 135mmol/L (136-145) Potassium Level 4.3mmol/L (3.5-5.1) Chloride Level 103mmol/L (98-107) Carbon Dioxide Level 23mmol/L (21-32) Anion Gap 9 (6-14) Blood Urea Nitrogen 50mg/dL (7-20) Creatinine 2.0mg/dL (0.6-1.0) Estimated GFR (Cockcroft-Gault) 30.8 Glucose Level 122mg/dL (70-99) Calcium Level 9.0mg/dL (8.5-10.1) Phosphorus Level 3.4mg/dL (2.6-4.7) Magnesium Level 2.5mg/dL (1.8-2.4) Albumin 2.8g/dL (3.4-5.0) Test 10/17/16 11:28 10/17/16 16:47 10/17/16 21:16 10/18/16 03:20 Glucose (Fingerstick) 144mg/dL (70-99) 183mg/dL (70-99) 177mg/dL (70-99) Sodium Level 136mmol/L (136-145) Potassium Level 4.2mmol/L (3.5-5.1) Chloride Level 104mmol/L (98-107) Carbon Dioxide Level 24mmol/L (21-32) Anion Gap 8 (6-14) Blood Urea Nitrogen 50mg/dL (7-20) Creatinine 1.6mg/dL (0.6-1.0) Estimated GFR (Cockcroft-Gault) 39.8 Glucose Level 123mg/dL (70-99) Calcium Level 9.1mg/dL (8.5-10.1) Phosphorus Level 4.0mg/dL (2.6-4.7) Magnesium Level 2.4mg/dL (1.8-2.4) Albumin 2.7g/dL (3.4-5.0) Test 10/18/16 03:25 10/18/16 08:04 10/18/16 12:46 White Blood Count 4.6x10^3/uL (4.0-11.0) Red Blood Count 3.26x10^6/uL (3.50-5.40) Hemoglobin 8.6g/dL (12.0-15.5) Hematocrit 26.1% (36.0-47.0) Mean Corpuscular Volume 80fL (79-100) Mean Corpuscular Hemoglobin 26pg (25-35) Mean Corpuscular Hemoglobin Concent 33g/dL (31-37) Red Cell Distribution Width 15.9% (11.5-14.5) Platelet Count 150x10^3/uL (140-400) Neutrophils (%) (Auto) 40% (31-73) Lymphocytes (%) (Auto) 47% (24-48) Monocytes (%) (Auto) 11% (0-9) Eosinophils (%) (Auto) 2% (0-3) Basophils (%) (Auto) 1% (0-3) Neutrophils # (Auto) 1.8x10^3uL (1.8-7.7) Lymphocytes # (Auto) 2.1x10^3/uL (1.0-4.8) Monocytes # (Auto) 0.5x10^3/uL (0.0-1.1) Eosinophils # (Auto) 0.1x10^3/uL (0.0-0.7) Basophils # (Auto) 0.0x10^3/uL (0.0-0.2) Glucose (Fingerstick) 70mg/dL (70-99) 152mg/dL (70-99) Laboratory Tests Test 10/17/16 16:47 10/17/16 21:16 10/18/16 03:20 10/18/16 03:25 Glucose (Fingerstick) 183mg/dL (70-99) 177mg/dL (70-99) Sodium Level 136mmol/L (136-145) Potassium Level 4.2mmol/L (3.5-5.1) Chloride Level 104mmol/L (98-107) Carbon Dioxide Level 24mmol/L (21-32) Anion Gap 8 (6-14) Blood Urea Nitrogen 50mg/dL (7-20) Creatinine 1.6mg/dL (0.6-1.0) Estimated GFR (Cockcroft-Gault) 39.8 Glucose Level 123mg/dL (70-99) Calcium Level 9.1mg/dL (8.5-10.1) Phosphorus Level 4.0mg/dL (2.6-4.7) Magnesium Level 2.4mg/dL (1.8-2.4) Albumin 2.7g/dL (3.4-5.0) White Blood Count 4.6x10^3/uL (4.0-11.0) Red Blood Count 3.26x10^6/uL (3.50-5.40) Hemoglobin 8.6g/dL (12.0-15.5) Hematocrit 26.1% (36.0-47.0) Mean Corpuscular Volume 80fL (79-100) Mean Corpuscular Hemoglobin 26pg (25-35) Mean Corpuscular Hemoglobin Concent 33g/dL (31-37) Red Cell Distribution Width 15.9% (11.5-14.5) Platelet Count 150x10^3/uL (140-400) Neutrophils (%) (Auto) 40% (31-73) Lymphocytes (%) (Auto) 47% (24-48) Monocytes (%) (Auto) 11% (0-9) Eosinophils (%) (Auto) 2% (0-3) Basophils (%) (Auto) 1% (0-3) Neutrophils # (Auto) 1.8x10^3uL (1.8-7.7) Lymphocytes # (Auto) 2.1x10^3/uL (1.0-4.8) Monocytes # (Auto) 0.5x10^3/uL (0.0-1.1) Eosinophils # (Auto) 0.1x10^3/uL (0.0-0.7) Basophils # (Auto) 0.0x10^3/uL (0.0-0.2) Test 10/18/16 08:04 10/18/16 12:46 Glucose (Fingerstick) 70mg/dL (70-99) 152mg/dL (70-99) Microbiology 10/13/16 Urine Culture - Final, Complete 10/13/16 Urine Culture Result 1 (TANJA) - Final, Complete Medications Current Medications Aspirin (Ecotrin) 325 mg 1X ONCE PO Last administered on 10/13/16t 21:40; Start 10/13/16 at 21:30; Stop 10/13/16 at 21:31; Status DC Nitroglycerin (Nitrostat) 0.4 mg PRN Q5MIN PRN SL CHEST PAIN; Start 10/13/16 at 21:15; Stop 10/13/16 at 22:42; Status DC Ondansetron HCl (Zofran) 4 mg PRN Q8HRS PRN IV NAUSEA/VOMITING; Start 10/13/16 at 22:45; Stop 10/14/16 at 22:44; Status DC Morphine Sulfate 2 mg PRN Q2HR PRN IV SEVERE PAIN; Start 10/13/16 at 22:45; Stop 10/14/16 at 22:44; Status DC Nitroglycerin (Nitrostat) 0.4 mg PRN Q5MIN PRN SL CHEST PAIN; Start 10/13/16 at 22:45; Stop 10/14/16 at 22:44; Status DC Polyethylene Glycol (miraLAX PACKET) 17 gm DAILY PO ; Start 10/14/16 at 09:00; Stop 10/14/16 at 11:55; Status DC Polyethylene Glycol (miraLAX PACKET) 17 gm PRN DAILY PRN PO CONSTIPATION; Start 10/13/16 at 23:45 Polyethylene Glycol (miraLAX PACKET) 17 gm 1X ONCE PO Last administered on 00:47; Start 10/14/16 at 00:30; Stop 10/14/16 at 00:31; Status DC Docusate Sodium (Colace) 100 mg DAILY PO Last administered on 10/18/16 10:03; Start 10/14/16 at 09:00 Magnesium Hydroxide (Milk Of Magnesia) 2,400 mg PRN DAILY PRN PO CONSTIPATION; Start 10/13/16 at 23:45 Simethicone (Gas-X) 80 mg PRN AFTMEALHC PRN PO GAS / BLOATING; Start 10/13/16 at 23:45 Aspirin (Children'S Aspirin) 81 mg DAILY PO Last administered on 10/18/16 10:03 ; Start 10/14/16 at 09:00 Carvedilol (Coreg) 6.25 mg DAILYWBKFT PO Last administered on 10/18/16 10:03; Start 10/14/16 at 08:00 Cyanocobalamin (Vitamin B-12) 500 mcg DAILY PO Last administered on 10/18/16 10 :03; Start 10/14/16 at 09:00 Furosemide (Lasix) 40 mg DAILY PO ; Start 10/14/16 at 09:00; Stop 10/14/16 at 12 :50; Status DC Metformin HCl (Glucophage) 1,000 mg BID PO ; Start 10/14/16 at 09:00; Status UNV Metoclopramide HCl (Reglan) 5 mg DAILY PO Last administered on 10/18/16 10:03; Start 10/14/16 at 09:00 Ascorbic Acid (Vitamin C) 500 mg DAILY PO Last administered on 10/18/16 10:03; Start 10/14/16 at 09:00 Gabapentin (Neurontin) 600 mg BID PO Last administered on 10/14/16 17:27; Start 10/14/16 at 09:00 Insulin Aspart (Novolog) 3 units TIDAC SQ Last administered on 10/18/16 12:59; Start 10/14/16 at 07:30 Insulin Detemir (Levemir) 10 units QHS SQ ; Start 10/14/16 at 21:00; Stop at 21:00; Status DC Oxybutynin Chloride (Ditropan) 5 mg DAILY PO Last administered on 10/18/16 10: 02; Start 10/14/16 at 09:00 Acetaminophen/ Hydrocodone Bitart (Lortab 5/325) 1 tab PRN Q6HRS PRN PO SEVERE PAIN Last administered on 10/14/16 09:11; Start 10/14/16 at 00:15 Lubiprostone (Amitiza) 8 mcg BIDWMEALS PO ; Start 10/14/16 at 08:00; Stop at 11:55; Status DC Sodium Biphosphate/ Sodium Phosphate (Fleet Adult) 133 ml PRN DAILY PRN AL CONSTIPATION; Start 10/13/16 at 23:45; Stop 10/14/16 at 12:50; Status DC Lubiprostone (Amitiza) 24 mcg BIDWMEALS PO Last administered on 10/18/16 10:02 ; Start 10/14/16 at 17:00 Polyethylene Glycol (miraLAX PACKET) 17 gm BID PO Last administered on 10:04; Start 10/14/16 at 21:00 Bisacodyl (Dulcolax Supp) 10 mg PRN DAILY PRN AL CONSTIPATION; Start 10/14/16 at 12:00 Pantoprazole Sodium 40 mg 40 mg DAILYAC PO Last administered on 10/18/16 10:03 ; Start 10/14/16 at 12:00 Magnesium Sulfate/ Dextrose (Magnesium Sulfate PREMIX 2GM) 50 ml @ 25 mls/hr PRN DAILY PRN IV for Mag < 1.7 on am labs; Start 10/14/16 at 12:30; Stop at 15:15; Status DC Insulin Detemir (Levemir) 25 units QHS SQ Last administered on 10/17/16 21:51; Start 10/14/16 at 21:00 Magnesium Citrate (Citroma) 296 ml 1X ONCE PO ; Start 10/15/16 at 15:00; Stop 10/15/16 at 15:15; Status DC Sodium Polystyrene Sulfonate (Kayexalate) 15 gm 1X ONCE PO Last administered on 10/15/16 15:20; Start 10/15/16 at 15:00; Stop 10/15/16 at 15:10; Status DC Regadenoson (Lexiscan) 0.4 mg 1X ONCE IV Last administered on 10/17/16 10:02; Start 10/17/16 at 08:30; Stop 10/17/16 at 08:31; Status DC Darbepoetin Joey (Aranesp) 60 mcg WEEKLYHS SQ ; Start 10/18/16 at 21:00 Active Scripts Active Miralax (Polyethylene Glycol 3350) 17 Gm Powd.pack 17 Packet PO DAILY Colace (Docusate Sodium) 100 Mg Capsule 1 Cap PO BID [Hydrocodone/Acetaminophen] 1 TAB Tablet 1 Tab PO PRN Q6HRS PRN Reported Premarin (Estrogens, Conjugated) 30 Gm Cream.appl 1 Kristal VG 3X/WEEK Losartan Potassium 100 Mg Tablet 100 Mg PO DAILY Oxybutynin Chloride Er (Oxybutynin Chloride) 5 Mg Tab.er.24 1 Tab PO DAILY Furosemide 40 Mg Tablet 1 Tab PO DAILY Gabapentin 300 Mg Capsule 600 Mg PO TID Vitamin B-12 (Cyanocobalamin (Vitamin B-12)) 1,000 Mcg Tablet 500 Mcg PO DAILY Lantus Solostar (Insulin Glargine,Hum.rec.anlog) 100 Unit/1 Ml Insuln.pen 25 Unit SQ QHS Novolog (Insulin Aspart) 100 Unit/1 Ml Cartridge 3 Unit SQ TIDAC Aspirin 81 Mg Tab.chew 81 Mg PO Carvedilol 6.25 Mg Tablet 6.25 Mg PO DAILY Metformin Hcl 500 Mg Tablet 1,000 Mg PO BID Calcium Citrate - Vit D3 Tab (Calcium Citrate/Vitamin D3) 1 Each Tablet 1 Each PO Vitals/I & O Vital Sign - Last 24 Hours 10/17/16 10/17/16 10/17/16 10/17/16 15:09 19:00 20:15 23:00 Temp 97.3 97.5 97.8 97.3 97.5 97.8 Pulse 100 72 74 Resp 20 18 20 B/P 121/76 116/66 139/70 Pulse Ox 92 98 O2 Delivery Room Air Room Air Room Air Room Air 10/18/16 10/18/16 10/18/16 10/18/16 03:00 07:00 08:00 10:03 Temp 97.7 98.5 97.7 98.5 Pulse 73 72 72 Resp 18 16 B/P 123/53 142/70 142/70 Pulse Ox 98 96 O2 Delivery Room Air Room Air Room Air 10/18/16 11:00 Temp 98.2 98.2 Pulse 76 Resp 18 B/P 139/66 Pulse Ox 97 O2 Delivery Room Air Intake and Output 10/17/16 10/17/16 10/18/16 15:00 23:00 07:00 Intake Total 750 ml 250 ml Output Total 400 ml Balance 350 ml 250 ml BULMARO HAIRSTON III DO October 18, 2016 14:20
[2016-10-18 15:00] VITALS: BP 139/66
[2016-10-18 19:56] VITALS: BP 124/74
[2016-10-18] MEDS ORDERED: DARBEPOETIN ALFA 60 MCG/0.3 ML DISP.SYRIN. SQ SCH (21:00)
[2016-10-20 10:23] LABS: ALPHA 1 0.3 g/dL (0.0-0.4); ALPHA 2 0.6 g/dL (0.4-1.0); GAMMA 2.8 g/dL (0.4-1.8); IMMUNOGLOBULIN A 457 mg/dL (87-352); IMMUNOGLOBULIN G 3131 mg/dL (700-1600); IMMUNOGLOBULIN M 87 mg/dL (26-217); M-SPIKE Not Observed g/dL (Not Observed); PROTEIN TOTAL 7.8 g/dL (6.0-8.5)
[2016-10-21 09:20] LABS: GAMMA UR 20.8 % (.); M-SPIKE, % Not Observed % (Not Observed); PROTEIN 24 UR 219 mg/24 hr (30-150); PROTEIN UR 17.5 mg/dL (Not Estab.)
--- NOTE | 2016-10-21 22:34 | DS ---
DATE OF DISCHARGE: 10/18/2016 ADMISSION DIAGNOSES: Abdominal pain, chest pain, recent toes amputation, [id number] renal failure. DISCHARGE DIAGNOSES: Resolving abdominal pain; suspect possibly constipation; resolving chest pain, atypical; suspect gastroesophageal reflux disease; recent amputations of the toe ____ MPI, which was negative. HOSPITAL COURSE: The patient is a pleasant, 61-year-old female, who presented with abdominal pain, chest pain, toe pain. She seemed to have had constipation. She was admitted. We did consult Cardiology for her chest pain. Stress test was negative. Urology did 24-hour urine, results are pending. Basically, the patient is at her baseline, we gave to her ____. She is doing well. We plan to discharge with close outpatient followup. DISPOSITION: Home. ACTIVITY: As tolerated. DIET: Low sodium. MEDICATIONS: Please see the MRAD. TOTAL TIME ON DISCHARGE: 33 minutes. BULMARO HAIRSTON DO DR: MARTHA/king JOB#: [id number] / [id number]
== END 2016-10-18 20:25 | disposition home or self-care (01) | DRG 391 ==
LOC: ER 19:27 → ED HOLD 22:30 → 2 NORTH 10-14 00:38
PROVIDERS: ADMIT Internal Medicine; ATTEND Internal Medicine
DX: K59.03 Drug induced constipation (principal); N17.0 Acute kidney failure with tubular necrosis; M86.9 Osteomyelitis, unspecified; E66.2 Morbid (severe) obesity with alveolar hypoventilation; I13.0 Hypertensive heart and chronic kidney disease with heart failure and stage 1 through stage 4 chronic kidney disease, or unspecified chronic kidney disease; I42.9 Cardiomyopathy, unspecified; I50.42 Chronic combined systolic (congestive) and diastolic (congestive) heart failure; I47.2 Ventricular tachycardia; N18.4 Chronic kidney disease, stage 4 (severe); E11.69 Type 2 diabetes mellitus with other specified complication; I25.119 Atherosclerotic heart disease of native coronary artery with unspecified angina pectoris; E87.5 Hyperkalemia; K21.9 Gastro-esophageal reflux disease without esophagitis; I44.7 Left bundle-branch block, unspecified; E11.22 Type 2 diabetes mellitus with diabetic chronic kidney disease; D64.9 Anemia, unspecified; E11.319 Type 2 diabetes mellitus with unspecified diabetic retinopathy without macular edema; E78.5 Hyperlipidemia, unspecified; H54.41 Blindness, right eye, normal vision left eye; K64.9 Unspecified hemorrhoids; T40.2X5A Adverse effect of other opioids, initial encounter; Z89.422 Acquired absence of other left toe(s); Z90.49 Acquired absence of other specified parts of digestive tract; Z83.3 Family history of diabetes mellitus; Z82.49 Family history of ischemic heart disease and other diseases of the circulatory system; Z68.33 Body mass index [BMI] 33.0-33.9, adult; Z95.0 Presence of cardiac pacemaker; Z98.49 Cataract extraction status, unspecified eye
CPT/HCPCS: 36415; 71010; 74176; 78452; 80053; 80061; 80069; 80074; 81001; 82306; 82553; 82575; 82728; 82947; 83520; 83540; 83550; 83690; 83735; 83970; 84156; 84165; 84166; 84443; 84484; 85027; 85045; 86140; 86334; 87086; 87641; 93005; 93017; 93306; 96374; 96375; 96376; A4314; A9500; J1815; J2785; J8597; 99285-25

== ENCOUNTER → 2016-11-03 | Outpatient (CLI) | payer MEDICARE ==
[2016-10-18 19:56] VITALS: BP 124/74
[~2016-11-03] MED LIST changes: +CYCL10TA2 PO; +ESTR30CR VG
== END | disposition home or self-care (01) ==
LOC: SPEC 17:11
PROVIDERS: ATTEND Podiatrist Foot & Ankle Surgery
DX: E11.42 Type 2 diabetes mellitus with diabetic polyneuropathy (principal); L97.524 Non-pressure chronic ulcer of other part of left foot with necrosis of bone
CPT/HCPCS: 87071; 87075; 87205

== ENCOUNTER 2016-12-07 10:17 | Inpatient (IN) | payer MEDICARE ==
[~2016-12-07] VITALS: Ht 166.4 cm; Wt 90.3 kg
[~2016-12-07 10:17] MED LIST changes: +ASPI-630 PO; -ASPI81TA2 PO; +CARV3.12 PO; +DOCU-109 PO; -DOCU-27 PO; +FURO20TA3 PO; +LOSA50TA6 PO
[2016-12-07 11:12] LABS: BILIRUBIN,URINE NEGATIVE (NEG); GLUCOSE,URINE NEGATIVE (NEG); NITRITE,URINE POSITIVE (NEG); PH,URINE 5.5; PROTEIN,URINE 30 mg/dL (NEG-TRACE); UROBILINOGEN,URINE 0.2 mg/dL (0.2 mg/dL)
[2016-12-07 11:24] LABS: BACTERIA,URINE MANY /HPF (0-FEW); WBC,URINE >40 /HPF (0-4)
[2016-12-07 11:40] LABS: BASO % 0 % (0-3); EOS % 0 % (0-3); HEMATOCRIT 29.8 % (36.0-47.0); HEMOGLOBIN 9.7 g/dL (12.0-15.5); LYMPH # 0.4 x10^3/uL (1.0-4.8); LYMPH % 4 % (24-48); MEAN CORPUSCULAR HEMOGLOBIN 27 pg (25-35); MEAN CORPUSCULAR HGB CONC 32 g/dL (31-37); MEAN CORPUSCULAR VOLUME 83 fL (79-100); MONO % 9 % (0-9); NEUT % 87 % (31-73); PLATELET COUNT 203 x10^3/uL (140-400); RED CELL DISTRIBUTION WIDTH 16.9 % (11.5-14.5); WHITE BLOOD COUNT 10.8 x10^3/uL (4.0-11.0)
--- NOTE | 2016-12-07 11:43 | RAD ---
Indication difficulty breathing. Tachycardia. A single view of the chest was obtained and is compared to a study 11 days earlier. Generalized cardiomegaly is noted appearing similar. A consolidated pneumonia is not seen although there are changes suggesting mild congestive heart failure. Significant pleural fluid is not present. There is no pneumothorax. IMPRESSION: Generalized cardiomegaly appearing similar. Probable superimposed mild congestive heart failure
[2016-12-07 11:53] LABS: CALCIUM 9.3 mg/dL (8.5-10.1); CREATININE 1.9 mg/dL (0.6-1.0); GFR 32.6; POTASSIUM 4.8 mmol/L (3.5-5.1)
[2016-12-07 11:59] LABS: ALBUMIN 2.5 g/dL (3.4-5.0); ALBUMIN/GLOBULIN RATIO 0.5 (1.0-1.7); TOTAL BILIRUBIN 0.7 mg/dL (0.2-1.0); TOTAL PROTEIN 7.4 g/dL (6.4-8.2)
[2016-12-07] MEDS: IV NORMAL SALINE 1000ML BAG 1,000 ML IV SCH ×4 (12:02→22:50)
[2016-12-07 12:08] LABS: CKMB MASS < 0.5 ng/mL (0.0-3.6); CREATINE KINASE 122 U/L (26-192)
--- NOTE | 2016-12-07 12:21 | PHYS DOC ---
Past Medical History Past Medical History: CAD, CHF, Diabetes-Type II, Hypertension, MRSA, Renal Failure, Other Additional Past Medical Histor: blindness rt eye Past Surgical History: Cholecystectomy, Pacemaker, Other Additional Past Surgical Histo: "pacemaker removal",AMPUTATION OF 2ND TOE LT FT , Alcohol Use: None Drug Use: None Adult General Chief Complaint Chief Complaint: CHEST PAIN-CARDIAC NATURE HPI HPI Patient is a 61 year old female who presents with complaint of chest pain and generalized weakness. Patient states the pain is on the right-sided chest and radiates up to the right side of her neck. Patient also complaining of generalized weakness. The patient was noted to have high fever at triage. Patient states that she has had cough but states that it has been nonproductive. Patient denies any abdominal pain, nausea, or vomiting. Patient has not taken any medications to help with symptoms. Patient has history of coronary artery disease, congestive heart failure, chronic renal failure, and type 2 diabetes mellitus. Patient has not taken her temperature at home but states that she "just doesn't feel well." Review of Systems Review of Systems Constitutional: Generalized weakness [] Eyes: Denies change in visual acuity, redness, or eye pain [] HENT: Denies nasal congestion or sore throat [] Respiratory: Cough [] Cardiovascular: Chest pain [] GI: Denies abdominal pain, nausea, vomiting, bloody stools or diarrhea [] : Denies dysuria or hematuria [] Musculoskeletal: Denies back pain or joint pain [] Integument: Denies rash or skin lesions [] Neurologic: Denies headache, focal weakness or sensory changes [] Current Medications Current Medications Current Medications Medications (Trade) Dose Ordered Sig/Wilfrid Start Time Stop Time Status Last Admin Dose Admin Sodium Chloride 1,000 ml @ 430 mls/hr Q2H20M 12/07/16 10:46 12/07/16 16:46 12/07/16 12:02 430 MLS/HR Allergies Allergies Allergies Coded Allergies Type Severity Reaction Last Updated Verified celecoxib Allergy Intermediate 09/24/13 Yes ciprofloxacin Allergy Intermediate 04/16/15 Yes Physical Exam Physical Exam Constitutional: Drowsy, febrile, appears acutely ill. [] HENT: Normocephalic, atraumatic, bilateral external ears normal, oropharynx moist, no oral exudates, nose normal. [] Eyes: PERRLA, EOMI, conjunctiva normal, no discharge. [] Neck: Normal range of motion, no tenderness, supple, no stridor. [] Cardiovascular: Tachycardia, regular rhythm, no murmur [] Lungs & Thorax: Bilateral breath sounds clear to auscultation [] Abdomen: Bowel sounds normal, soft, no tenderness, no masses, no pulsatile masses. [] Skin: Warm, dry, no erythema, no rash. [] Back: No tenderness, no CVA tenderness. [] Extremities: No tenderness, no cyanosis, no clubbing, ROM intact, no edema. [] Neurologic: Alert and oriented X 3, normal motor function, normal sensory function, no focal deficits noted. [] Current Patient Data Vital Signs Vital Signs Date Time Temp Pulse Resp B/P (MAP) Pulse Ox O2 Delivery O2 Flow Rate FiO2 12/07/16 10:55 104.5 104.5 12/07/16 10:17 117 17 150/74 (99) 96 Nasal Cannula 2.0 Lab Values Laboratory Tests Test 12/07/16 10:55 12/07/16 11:30 Urine Collection Type U cath Urine Color Yellow Urine Clarity Cloudy Urine pH 5.5 Urine Specific Watson 1.010 Urine Protein 30 mg/dL (NEG-TRACE) Urine Glucose (UA) Negative mg/dL (NEG) Urine Ketones (Stick) Negative mg/dL (NEG) Urine Blood Small (NEG) Urine Nitrite Positive (NEG) Urine Bilirubin Negative (NEG) Urine Urobilinogen Dipstick 0.2 mg/dL (0.2 mg/dL) Urine Leukocyte Esterase Large (NEG) Urine RBC 1-2 /HPF (0-2) Urine WBC >40 /HPF (0-4) Urine Transitional Epithelial Cells Occ /LPF Urine Bacteria Many /HPF (0-FEW) White Blood Count 10.8 x10^3/uL (4.0-11.0) # Red Blood Count 3.60 x10^6/uL (3.50-5.40) Hemoglobin 9.7 g/dL (12.0-15.5) L Hematocrit 29.8 % (36.0-47.0) L Mean Corpuscular Volume 83 fL (79-100) Mean Corpuscular Hemoglobin 27 pg (25-35) Mean Corpuscular Hemoglobin Concent 32 g/dL (31-37) Red Cell Distribution Width 16.9 % (11.5-14.5) H Platelet Count 203 x10^3/uL (140-400) Neutrophils (%) (Auto) 87 % (31-73) H Lymphocytes (%) (Auto) 4 % (24-48) L Monocytes (%) (Auto) 9 % (0-9) Eosinophils (%) (Auto) 0 % (0-3) Basophils (%) (Auto) 0 % (0-3) Neutrophils # (Auto) 9.5 x10^3uL (1.8-7.7) H Lymphocytes # (Auto) 0.4 x10^3/uL (1.0-4.8) L Monocytes # (Auto) 1.0 x10^3/uL (0.0-1.1) Eosinophils # (Auto) 0.0 x10^3/uL (0.0-0.7) Basophils # (Auto) 0.0 x10^3/uL (0.0-0.2) Segmented Neutrophils % 79 % (35-66) H Band Neutrophils % 12 % (0-9) H Lymphocytes % 5 % (24-48) L Monocytes % 4 % (0-10) Platelet Estimate Adequate (ADEQUATE) Sodium Level 139 mmol/L (136-145) Potassium Level 4.8 mmol/L (3.5-5.1) Chloride Level 104 mmol/L (98-107) Carbon Dioxide Level 24 mmol/L (21-32) Anion Gap 11 (6-14) Blood Urea Nitrogen 43 mg/dL (7-20) H Creatinine 1.9 mg/dL (0.6-1.0) H Estimated GFR (Cockcroft-Gault) 32.6 BUN/Creatinine Ratio 23 (6-20) H Glucose Level 221 mg/dL (70-99) H Lactic Acid Level 1.8 mmol/L (0.4-2.0) Calcium Level 9.3 mg/dL (8.5-10.1) Total Bilirubin 0.7 mg/dL (0.2-1.0) Aspartate Amino Transferase (AST) 51 U/L (15-37) H Alanine Aminotransferase (ALT) 34 U/L (14-59) Alkaline Phosphatase 305 U/L (46-116) H Creatine Kinase 122 U/L (26-192) Creatine Kinase MB (Mass) < 0.5 ng/mL (0.0-3.6) Creatine Kinase MB Relative Index % (0-4) Troponin I Quantitative 0.588 ng/mL (0.000-0.055) Total Protein 7.4 g/dL (6.4-8.2) Albumin 2.5 g/dL (3.4-5.0) L Albumin/Globulin Ratio 0.5 (1.0-1.7) L Procalcitonin 3.37 ng/mL (0.00-0.10) H Laboratory Tests 12/07/16 11:30 Laboratory Tests 12/07/16 11:30 EKG EKG Interpreted by me: Heart rate 119, sinus tachycardia, left bundle branch block, no acute changes in morphology from previous EKG Radiology/Procedures Radiology/Procedures [facility] [address] [place] [address] IMAGING REPORT Signed 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 PHYSICIAN: YUNIEL KIRKPATRICK MD REASON: tachycardia PROCEDURE: PORTABLE CHEST 1V Indication difficulty breathing. Tachycardia. A single view of the chest was obtained and is compared to a study 11 days earlier. Generalized cardiomegaly is noted appearing similar. A consolidated pneumonia is not seen although there are changes suggesting mild congestive heart failure. Significant pleural fluid is not present. There is no pneumothorax. IMPRESSION: Generalized cardiomegaly appearing similar. Probable superimposed mild congestive heart failure DICTATED and SIGNED BY: HILDA CALLAHAN MD DATE: 12/07/16 1139 CC: NEHAL LEWIS MD; YUNIEL KIRKPATRICK MD ~ [] Course & Med Decision Making Course & Med Decision Making Pertinent Labs and Imaging studies reviewed. (See chart for details) The patient shows evidence of urinary tract infection on her lab work. Given patient's fever and tachycardia, the patient meets sepsis criteria. Patient's lactic acid level although appears within normal limits. Patient started on IV Rocephin. Patient found to have an abnormal elevation in her troponin levels. The patient recently had an incidental me in her troponin level was significantly more elevated at that time. It is likely that the patient's troponin level is elevated from her recent and STEMI and is likely trending down. I did consult cardiology and spoke with MELISSA Simmons for the cardiology service, and they will follow patient in hospital. I spoke with Dr. Khan who accepted care patient in hospital. Dragon Disclaimer Dragon Disclaimer This electronic medical record was generated, in whole or in part, using a voice recognition dictation system. Departure Departure Impression: Primary Impression: Sepsis Additional Impressions: Urinary tract infection Renal insufficiency Elevated troponin Disposition: ADMITTED INPATIENT Admitting Physician: Benny Khan Condition: GUARDED Referrals: NEHAL LEWIS MD (PCP) Problem Qualifiers Primary Impression: Sepsis Sepsis type: sepsis due to unspecified organism Qualified Codes: A41.9 - Sepsis, unspecified organism Additional Impressions: Urinary tract infection Urinary tract infection type: site unspecified Hematuria presence: without hematuria Qualified Codes: N39.0 - Urinary tract infection, site not specified YUNIEL KIRKPATRICK MD Dec 07, 2016 12:21
[2016-12-07 12:54] LABS: PLT ESTIMATE ADEQUATE (ADEQUATE)
[2016-12-07] MEDS ORDERED: ACETAMINOPHEN 325 MG TABLET. PO PRN (13:00)
[2016-12-07] MEDS ORDERED: ONDANSETRON PF 4 MG/2 ML VIAL. IV PRN (13:00)
[2016-12-07] MEDS ORDERED: fentaNYL PF VIAL 100 MCG/2 ML VIAL IV PRN (13:00)
[2016-12-07 13:10] VITALS: BP 93/61
--- NOTE | 2016-12-07 13:53 | ACF ---
Admit Criteria Forms Admit Criteria Forms Admit Criteria Forms SEPSIS and OTHER FEBRILE ILLNESS, W/O FOCAL INFECTION Clinical Indications for Admission to Inpatient Care ( Place 'X' for any and all applicable criteria): Admission is indicated for ANY ONE of the following (1)(2)(3)(4): [ ] I. Bacteremia [ ]II. Suspected or identified specific infection requiring hospitalization (eg, meningitis, endocarditis) [ ]III. Hemodynamic instability [ ]IV. Altered mental status [ ]V. Failure or unavailability of outpatient antimicrobial treatment [ ]. Hypoxemia [ ]VII. Seizures [ ]VIII. High-risk febrile neutropenia [ ]IX. Need for parenteral antibiotic in patient who is likely to abuse vascular access device (eg, injection drug user) [A](7) [ ]X. Temperature greater than 104.9 degrees F (40.5 degrees C) (oral) [X]XI. Inpatient admission required rather than observation care because of ANY ONE of the following: [ ]1) Specific infection identified that is too severe for outpatient treatment or observation care trial [ ]2) Metabolic disorder (eg, hypoglycemia, hyperglycemia, metabolic acidosis) that is severe or persistent [X]3) Temperature greater than 103.1 degrees F (39.5 degrees C) ( oral) that is not responsive to observation care treatment [ ]4) IV fluid to replace significant ongoing (eg, for over 24 hours) losses (> 3 L/m2 per day) [ ]5) Supplemental oxygen or respiratory treatments for over 24 hours that is performable only in acute inpatient setting [ ]6) Parenteral nutrition regimen need that must be implemented on inpatient basis [ ]7) Strict or protective (eg, laminar flow) isolation [ ]8) Other condition, treatment or monitoring requiring inpatient admission Extended stay beyond goal length of stay may be needed for(1)(3) [ ]a) Sepsis or septic shock(22) [ ]b) Positive blood cultures [ ]c) Insufficient oral intake [ ]d) High-risk febrile neutropenia(29)(30) [ ]e) Continued fever and clinical instability [ ]f) Clinically active comorbid illness (e.g,heart failure, renal failure , diabetes) The original [employer] content created by [email or web address] has been revised. The portions of the content which have been revised are identified through the use of italic text or in bold, and [facility] has neither reviewed nor approved the modified material. All other unmodified content is copyright [facility]. Please see references footnoted in the original [facility] edition 2016 LUZMA BRAND Dec 07, 2016 13:53
--- NOTE | 2016-12-07 14:52 | PDOC2 ---
MARGIE CODY NET DEVELOPMENT MANAGER 12/07/16 1452: CARDIAC CONSULT DATE OF CONSULT Date of Consult DATE: 12/07/16 TIME: 14:45 REASON FOR CONSULT Reason for Consult: Chest pain Elevated troponin REFERRING PHYSICIAN Referring Physician: Dr. Day SOURCE Source: Chart review, Patient HISTORY OF PRESENT ILLNESS HISTORY OF PRESENT ILLNESS This is a 61 yo female who presented with complaints of chest pain and generalized weakness. Patient reports chest pain has been intermittent for the last couple of weeks. Hospitalized 11/26/16 with NSTEMI. [place] to be type II demand ischemia in the setting of anemia. Troponin peaked at 9.66. Also treated for acute on chronic systolic HF at that time. LVEF 20%; was set up with LifeVest upon discharge. Patient describes pain as aching. Located in her left chest. Associated with pain in the right neck. Denies any SOA, dizziness, palpitations, or nausea/ vomiting. Pain worsened with ceratin movement and with deep breathing. Generally resolves without intervention. Denies fevers although febrile upon arrival. Has been experiencing some diaphoresis for the last 24hrs. UA notable for UTI. Denies any dysuria. Reports compliance with medications. PAST MEDICAL HISTORY Cardiovascular: CAD (non-obstructive ), CHF, HTN, [place] (NSTEMI), Hyperlipidemia CENTRAL NERVOUS SYSTEM: Periperal neuropathy GI: GERD Heme/Onc: No pertinent hx Hepatobiliary: No pertinent hx Psych: No pertinent hx Musculoskeletal: low back pain, Osteoarthritis, Other (osteomyelitis ) Rheumatologic: No pertinent hx Infectious disease: No pertinent hx ENT: No pertinent hx Renal/: Chronic renal insuff Endocrine: Diabetes PAST SURGICAL HISTORY Past Surgical History: Pacemaker (removed due to infection), Cholecystectomy, Cataract Removal, Tonsillectomy, Hysterectomy, Other (back sx) FAMILY HISTORY Family History: Diabetes, Heart Disease, Hypertension SOCIAL HISTORY Smoke: No ALCOHOL: none Drugs: None Lives: with Family CURRENT MEDICATIONS CURRENT MEDICATIONS Current Medications Medications (Trade) Dose Ordered Sig/Wilfrid Route PRN Reason Start Time Stop Time Status Last Admin Dose Admin Sodium Chloride 1,000 ml @ 430 mls/hr Q2H20M IV 12/07/16 10:46 12/07/16 16:46 12/07/16 12:02 Ceftriaxone Sodium 50 ml @ 100 mls/hr 1X ONCE IV 12/07/16 12:00 12/07/16 12:29 DC 12/07/16 12:03 ALLERGIES ALLERGIES: Coded Allergies: celecoxib (Verified Allergy, Intermediate, 12/07/16) HAS TOLERATED ASA ciprofloxacin (Verified Allergy, Intermediate, 04/16/15) ROS Review of System 14 point ROS conducted with pertinent positives noted above in HPI. PHYSICAL EXAM General: Alert, Oriented X3, Cooperative HEENT: Atraumatic, Mucous membr. moist/pink Lungs: Clear to auscultation, Normal air movement Heart: Regular rate, Normal S1, Normal S2, Other (3/6 systolic murmur ) Abdomen: Soft, No tenderness Extremities: No edema, Normal pulses Skin: No breakdown, No significant lesion Neuro: Normal speech, Sensation intact Psych/Mental Status: Mental status NL, Other (drowsy ) MUSCULOSKELETAL: Osteoarthritic changes both hands VITALS VITALS Vital Signs Date Time Temp Pulse Resp B/P (MAP) Pulse Ox O2 Delivery O2 Flow Rate FiO2 12/07/16 13:41 100.0 100.0 12/07/16 10:17 117 17 150/74 (99) 96 Nasal Cannula 2.0 LABS Lab: Laboratory Tests Test 12/07/16 10:55 12/07/16 11:30 12/07/16 12:15 Urine Collection Type U cath Urine Color Yellow Urine Clarity Cloudy Urine pH 5.5 Urine Specific [place] 1.010 Urine Protein 30 mg/dL (NEG-TRACE) Urine Glucose (UA) Negative mg/dL (NEG) Urine Ketones (Stick) Negative mg/dL (NEG) Urine Blood Small (NEG) Urine Nitrite Positive (NEG) Urine Bilirubin Negative (NEG) Urine Urobilinogen Dipstick 0.2 mg/dL (0.2 mg/dL) Urine Leukocyte Esterase Large (NEG) Urine RBC 1-2 /HPF (0-2) Urine WBC >40 /HPF (0-4) Urine Transitional Epithelial Cells Occ /LPF Urine Bacteria Many /HPF (0-FEW) White Blood Count 10.8 x10^3/uL (4.0-11.0) Red Blood Count 3.60 x10^6/uL (3.50-5.40) Hemoglobin 9.7 g/dL (12.0-15.5) Hematocrit 29.8 % (36.0-47.0) Mean Corpuscular Volume 83 fL (79-100) Mean Corpuscular Hemoglobin 27 pg (25-35) Mean Corpuscular Hemoglobin Concent 32 g/dL (31-37) Red Cell Distribution Width 16.9 % (11.5-14.5) Platelet Count 203 x10^3/uL (140-400) Neutrophils (%) (Auto) 87 % (31-73) Lymphocytes (%) (Auto) 4 % (24-48) Monocytes (%) (Auto) 9 % (0-9) Eosinophils (%) (Auto) 0 % (0-3) Basophils (%) (Auto) 0 % (0-3) Neutrophils # (Auto) 9.5 x10^3uL (1.8-7.7) Lymphocytes # (Auto) 0.4 x10^3/uL (1.0-4.8) Monocytes # (Auto) 1.0 x10^3/uL (0.0-1.1) Eosinophils # (Auto) 0.0 x10^3/uL (0.0-0.7) Basophils # (Auto) 0.0 x10^3/uL (0.0-0.2) Segmented Neutrophils % 79 % (35-66) Band Neutrophils % 12 % (0-9) Lymphocytes % 5 % (24-48) Monocytes % 4 % (0-10) Platelet Estimate Adequate (ADEQUATE) Sodium Level 139 mmol/L (136-145) Potassium Level 4.8 mmol/L (3.5-5.1) Chloride Level 104 mmol/L (98-107) Carbon Dioxide Level 24 mmol/L (21-32) Anion Gap 11 (6-14) Blood Urea Nitrogen 43 mg/dL (7-20) Creatinine 1.9 mg/dL (0.6-1.0) Estimated GFR (Cockcroft-Gault) 32.6 BUN/Creatinine Ratio 23 (6-20) Glucose Level 221 mg/dL (70-99) Lactic Acid Level 1.8 mmol/L (0.4-2.0) 1.3 mmol/L (0.4-2.0) Calcium Level 9.3 mg/dL (8.5-10.1) Total Bilirubin 0.7 mg/dL (0.2-1.0) Aspartate Amino Transf (AST/SGOT) 51 U/L (15-37) Alanine Aminotransferase (ALT/SGPT) 34 U/L (14-59) Alkaline Phosphatase 305 U/L (46-116) Creatine Kinase 122 U/L (26-192) Creatine Kinase MB (Mass) < 0.5 ng/mL (0.0-3.6) Creatine Kinase MB Relative Index % (0-4) Troponin I Quantitative 0.588 ng/mL (0.000-0.055) Total Protein 7.4 g/dL (6.4-8.2) Albumin 2.5 g/dL (3.4-5.0) Albumin/Globulin Ratio 0.5 (1.0-1.7) Procalcitonin 3.37 ng/mL (0.00-0.10) ECHOCARDIOGRAM ECHOCARDIOGRAM Conclusion 1. Regadenoson cardioisotope stress test showed diaphragmatic attenuation artifact without any diagnostic evidence of ischemia or infarct. 2. Moderate global left ventricle systolic dysfunction with ejection fraction calculated at 32%. 3. Intermediate risk for cardiac events based on diminished left ventricle systolic function. DATE: 10/17/16 1358 STRESS TEST STRESS TEST <Conclusion> The Ejection Fraction is 20%. There is severe global hypokinesis of the left ventricle. The mitral valve is calcified and displays decreased opening. Posterior mitral annular calcification is moderate to severe. Doppler and Color Flow revealed trace tricuspid regurgitation. There is moderate pulmonary hypertension. The PA pressure was estimated at 43 mmHg. There is a trace circumferential pericardial effusion. DATE: 10/14/16 1352 HEART CATH HEART CATH Hemodynamics. Left ventricular pressure 140/14, aortic root pressure 138/74. Coronaries. Left main. The left main had no lesions. Left anterior descending. The patient was a moderate size vessel with a wraparound anatomy. It had a 40-50% mid lesion and a more distal 35% lesion as well as a first diagonal branch with a 35% lesion. Left circumflex. The left circumflex is a smaller nondominant vessel with a mid 30% lesion. Right coronary artery. The right coronary was a larger dominant vessel with a mid 15% lesion. Fractional flow reserve of the LAD lesion was normal with a measurement of 0.94. <Conclusion> Mild to moderate coronary artery disease with calcified vessels but no hemodynamically significant lesions. Normal left ventricular EDP. DATE: 07/16/15 0915 ASSESSMENT/PLAN ASSESSMENT/PLAN 1. Chest pain, with atypical features. Recent stress test without any evidence of any significant ischemia as above. 2. Recent NSTEMI; troponin peak at 9.66 on 11/26/16; now 0.588 3. CAD; non-obstructive per cath in 06/2015 4. Chronic systolic heart failure with NICM; LVEF 20% per echo 10/03. LifeVest initiated. Appears compensated presently 5. Hypertension; controlled with meds 6. Hyperlipidemia; on goal per recent lipid profile. Continue statin 7. CKD 8. Diabetes; as per IM 9. UTI with fevers; ? sepsis. fluid resuscitation initiated Recommendations Mild troponin elevation in the setting of acute infection and ASHLEY, along with recent NSTEMI; continue to trend. CK normal; doubt ACS Resume optimization therapy Caution IVF with severe cardiomyopathy; d/w RN Given recurrent CP, could consider further ischemic workup when acute issues resolved. Continue supportive care. Resume LifeVest upon discharge with repeat echo in 2- 3 months. Treatment of UTI per PCP Problems: LAUREL MENDOZA MD 12/07/16 1637: CARDIAC CONSULT ALLERGIES ALLERGIES: Coded Allergies: celecoxib (Verified Allergy, Intermediate, 12/07/16) HAS TOLERATED ASA ciprofloxacin (Verified Allergy, Intermediate, 04/16/15) ASSESSMENT/PLAN ASSESSMENT/PLAN Patient seen and examined. Agree with GENERAL INTERNAL MEDICINE PHYSICIAN's assessment and plan. Chest pain with atypical features. Slight troponin level elevation probably from recent non-STEMI. Cardiac catheterization in 2015 showed nonobstructive coronary artery disease. Recent stress test in October 2016 did not show any significant ischemia. Chronic systolic heart failure clinically well compensated. Continue treatment of UTI per IM. Thank you for your consultation. Problems: MARGIE CODY APRN Dec 07, 2016 14:52 LAUREL MENDOZA MD Dec 07, 2016 16:37
[2016-12-07 15:00] VITALS: BP 107/63
--- NOTE | 2016-12-07 15:41 | EKG ---
[facility] [address] [place] [address] Test Date: 2016-12-07 Test Time: 10:25:38 Pat Name: MASTER ZAMORANO Department: Room: Gender: F Compliance Coordinator: : [id number] Requested By: YUNIEL KIRKPATRICK Order Number: [id number] Reading MD: Measurements Intervals [place] Rate: 119 P: -131 [place]: 110 QRS: 93 QRSD: 54 T: 87 QT: 352 QTc: 496 Interpretive Statements SINUS TACHYCARDIA LEFT ATRIAL ABNORMALITY RIGHTWARD AXIS R-S TRANSITION ZONE IN V LEADS DISPLACED TO THE LEFT LOW LIMB LEAD VOLTAGE ST & T ABNORMALITY, CONSIDER RECENT HIGH LATERAL MYOCARDIAL OR PERICARDIAL DAMAGE ABNORMAL ECG RI6.01 No previous ECG available for comparison
[2016-12-07] MEDS: CARVEDILOL 3.125 MG TABLET. PO SCH (16:40)
[2016-12-07] MEDS: FUROSEMIDE 20 MG TABLET PO SCH (17:39)
[2016-12-07] MEDS: ASPIRIN CHEWABLE 81 MG TABLET. PO SCH (17:39)
[2016-12-07] MEDS: LOSARTAN POTASSIUM 50 MG TABLET. PO SCH (17:40)
--- NOTE | 2016-12-07 17:50 | HP ---
ADMIT DATE: 12/07/2016 CHIEF COMPLAINT: Abdominal pain, dysuria, and weakness. HISTORY OF PRESENT ILLNESS: The patient is a pleasant middle-aged -[place] female who presented to the ER with above chief complaints. Basically, she has been having some abdominal pain, intermittent chest pain, weakness, and some dysuria. While in the ER, she was noted to have UTI with sepsis. I discussed the case with the ER physician. We are going to admit the patient and give her IV antibiotics and fluids. PAST MEDICAL HISTORY: CHF, coronary artery disease, diabetes, hypertension, MRSA, renal failure, right eye blind, cholecystectomy, pacemaker with pacemaker removal, and amputation of the second toe. ALLERGIES: CELEBREX AND CIPRO. FAMILY HISTORY: Coronary artery disease. SOCIAL HISTORY: She does not drink, smoke, or take drugs. MEDICATIONS: Reviewed. Please refer to the MRAD. REVIEW OF SYSTEMS: GENERAL: No history of weight change, weakness, or fevers. SKIN: No bruising, hair changes, or rashes. EYES: No blurred, double, or loss of vision. NOSE AND THROAT: No history of nosebleeds, hoarseness, or sore throat. HEART: No history of palpitations, chest pain, or shortness of breath on exertion. LUNGS: Denies cough, hemoptysis, wheezing, or shortness of breath. GASTROINTESTINAL: Denies changes in appetite, nausea, vomiting, diarrhea, or constipation. GENITOURINARY: No history of frequency, urgency, hesitancy, or nocturia. NEUROLOGIC: Denies history of numbness, tingling, tremor, or weakness. PSYCHIATRIC: No history of panic, anxiety, or depression. ENDOCRINE: No history of heat or cold intolerance, polyuria, or polydipsia. EXTREMITIES: Denies muscle weakness, joint pain, pain on walking, or stiffness. PHYSICAL EXAMINATION: VITAL SIGNS: Stable. Temperature is afebrile, pulse 98, respirations 18, and blood pressure 107/63. GENERAL: She is sleeping. She awakens. HEART: Normal S1, S2. LUNGS: Clear. ABDOMEN: Soft, positive bowel sounds. EXTREMITIES: 1+ edema. SKIN: No rashes. PSYCHIATRIC: She seems a little depressed. VASCULAR: Good capillary refill. LABORATORY DATA: White count 10, hemoglobin 9, and platelets 203. Electrolytes are pending. Troponin is little high at 0.588. Her creatinine is high at 1.9. ASSESSMENT AND PLAN: Urinary tract infection, acute on chronic renal failure, and elevated troponin. The patient has been admitted. We will give her IV fluids, IV antibiotics. Consult Dr. Mckay. Consult Dr. Rodriguez. Continue home medicines. ERVINL Roselyn HAIRSTON DO DR: MARTHA/king JOB#: [id number] / [id number]
[2016-12-07 19:00] VITALS: BP 110/65
[2016-12-07 23:00] VITALS: BP 94/58
[2016-12-08 01:15] LABS: BASO % 0 % (0-3); EOS % 0 % (0-3); HEMATOCRIT 31.6 % (36.0-47.0); LYMPH # 1.4 x10^3/uL (1.0-4.8); LYMPH % 13 % (24-48); MEAN CORPUSCULAR HEMOGLOBIN 26 pg (25-35); MEAN CORPUSCULAR HGB CONC 32 g/dL (31-37); MEAN CORPUSCULAR VOLUME 83 fL (79-100); MONO % 8 % (0-9); NEUT % 78 % (31-73); PLATELET COUNT 189 x10^3/uL (140-400); RED BLOOD COUNT 3.81 x10^6/uL (3.50-5.40); RED CELL DISTRIBUTION WIDTH 17.1 % (11.5-14.5); WHITE BLOOD COUNT 10.9 x10^3/uL (4.0-11.0)
[2016-12-08 01:25] LABS: CALCIUM 8.7 mg/dL (8.5-10.1); CREATININE 1.9 mg/dL (0.6-1.0); GFR 32.6; POTASSIUM 4.3 mmol/L (3.5-5.1)
[2016-12-08 03:00] VITALS: BP 107/68
[2016-12-08 07:00] VITALS: BP 97/61
[2016-12-08] MEDS: FUROSEMIDE 20 MG TABLET PO SCH ×2 (08:09→16:35)
[2016-12-08] MEDS: ASPIRIN CHEWABLE 81 MG TABLET. PO SCH (08:14)
[2016-12-08] MEDS: CARVEDILOL 3.125 MG TABLET. PO SCH ×2 (08:14→17:00)
[2016-12-08] MEDS: IV NORMAL SALINE 1000ML BAG 1,000 ML IV SCH (08:20)
[2016-12-08] MEDS: LOSARTAN POTASSIUM 50 MG TABLET. PO SCH (09:00)
--- NOTE | 2016-12-08 10:35 | PDOC2 ---
CONSULT Date of Consult Date of Consult DATE: 12/08/16 TIME: 10:31 Reason for Consult Reason for Consult: CK BEE Referring Physician Referring Physician: Dr Khan Identification/Chief Complaint Chief Complaint UTI Problems: Source Source: Chart review, Patient History of Present Illness Reason for Visit: as dictated Past Medical History Cardiovascular: CAD (non-obstructive ), CHF, HTN, [place] (NSTEMI), Hyperlipidemia Pulmonary: No pertinent hx CENTRAL NERVOUS SYSTEM: Periperal neuropathy GI: GERD Heme/Onc: No pertinent hx Hepatobiliary: No pertinent hx Psych: No pertinent hx Musculoskeletal: low back pain, Osteoarthritis, Other (osteomyelitis ) Rheumatologic: No pertinent hx Infectious disease: No pertinent hx ENT: No pertinent hx Renal/: Chronic renal insuff Endocrine: Diabetes Past Surgical History Past Surgical History: Pacemaker (removed due to infection), Cholecystectomy, Cataract Removal, Tonsillectomy, Hysterectomy, Other (back sx) Family History Family History: Diabetes, Heart Disease, Hypertension Social History No ALCOHOL: none Drugs: None Lives: with Family Current Problem List Problem List Problems Medical Problems: (1) Elevated troponin Status: Acute (2) Renal insufficiency Status: Acute (3) Sepsis Status: Acute (4) Urinary tract infection Status: Acute Current Medications Current Medications Current Medications Sodium Chloride 1,000 ml @ 430 mls/hr Q2H20M IV Last administered on 13:06; Start 12/07/16 at 10:46; Stop 12/07/16 at 16:31; Status DC Ceftriaxone Sodium 50 ml @ 100 mls/hr 1X ONCE IV Last administered on 12:03; Start 12/07/16 at 12:00; Stop 12/07/16 at 12:29; Status DC Ondansetron HCl (Zofran) 4 mg PRN Q8HRS PRN IV NAUSEA/VOMITING; Start 12/07/16 at 13:00; Stop 12/08/16 at 12:59 Fentanyl Citrate (Fentanyl 2ml Vial) 50 mcg PRN Q2HR PRN IV PAIN; Start at 13:00; Stop 12/08/16 at 12:59 Sodium Chloride 1,000 ml @ 100 mls/hr Q10H IV Last administered on 12/08/16 08:20; Start 12/07/16 at 12:50; Stop 12/08/16 at 12:49 Acetaminophen (Tylenol) 650 mg PRN Q4HRS PRN PO FEVER; Start 12/07/16 at 13:00 ; Stop 12/08/16 at 12:59 Ceftriaxone Sodium 1 gm/ Sodium Chloride 50 ml @ 100 mls/hr Q24H IV ; Start at 13:00 Aspirin (Children'S Aspirin) 81 mg DAILY08 PO Last administered on 12/08/16 08 :14; Start 12/07/16 at 16:30 Carvedilol (Coreg) 3.125 mg BIDWMEALS PO Last administered on 12/08/16 08:14; Start 12/07/16 at 17:00 Furosemide (Lasix) 20 mg BID94 PO Last administered on 12/08/16 08:09; Start 12/07/16 at 16:30 Losartan Potassium (Cozaar) 50 mg DAILY PO Last administered on 12/07/16 17:40 ; Start 12/07/16 at 16:30 Active Scripts Active Miralax (Polyethylene Glycol 3350) 17 Gm Powd.pack 17 Packet PO DAILY Colace (Docusate Sodium) 100 Mg Capsule 1 Cap PO BID [Hydrocodone/Acetaminophen] 1 TAB Tablet 1 Tab PO PRN Q6HRS PRN Reported Losartan Potassium 50 Mg Tablet 50 Mg PO DAILY Furosemide 20 Mg Tablet 20 Mg PO BID Coreg (Carvedilol) 3.125 Mg Tablet 1 Tab PO BID Premarin (Estrogens, Conjugated) 30 Gm Cream.appl 1 Kristal VG 3X/WEEK Cyclobenzaprine Hcl 10 Mg Tablet 1 Tab PO QHS Oxybutynin Chloride Er (Oxybutynin Chloride) 5 Mg Tab.er.24 1 Tab PO DAILY Gabapentin 300 Mg Capsule 600 Mg PO TID Vitamin B-12 (Cyanocobalamin (Vitamin B-12)) 1,000 Mcg Tablet 500 Mcg PO DAILY Lantus Solostar (Insulin Glargine,Hum.rec.anlog) 100 Unit/1 Ml Insuln.pen 25 Unit SQ QHS Novolog (Insulin Aspart) 100 Unit/1 Ml Cartridge 3 Unit SQ TIDAC Aspirin 81 Mg Tab.chew 81 Mg PO Metformin Hcl 500 Mg Tablet 1,000 Mg PO BID Calcium Citrate - Vit D3 Tab (Calcium Citrate/Vitamin D3) 1 Each Tablet 1 Each PO Allergies Allergies: Coded Allergies: celecoxib (Verified Allergy, Intermediate, 12/07/16) HAS TOLERATED ASA ciprofloxacin (Verified Allergy, Intermediate, 04/16/15) ROS Review of System GEN: no Fevers no Chills EYES: no new Visual Complaints (CUAUHTEMOC CALDERON) ENT: no EN Drainage no new Hearing deficiets CVS: no Orthopnea no CP RESP: no SOB no PHILLIPS GI: no Nausea no Vomiting + Abd pain and constipation : no Dysuria no Urgency HEME: no easy bruising no Palp Ly Nodes NEURO no Focal Weakness no Sz PSYCH: no Suicidal Ideation no Depression SKIN: no Rashes ENDO: no Polyuria or Polydipsia no Hot/Cold Intolerance MU SK: occ Arthralgia no Myalgia Physical Exam Physical Exam General Appearance: Awake Alert Oriented x 3 In no Distress Eyes: ? dec VIsion Conjunctiva Normal EN: No EN Drainage Mucous Memb. moist Neck: no JVD no JVP Supple no Thyromegaly CVS: S1 S2 ? Murmur No Gallop No Rub no Edema Resp: no Rales no Rhonchi no Acc. Muscle use GI: BAS +ve NO Bruit Non Tender Non Distended : no CVA tenderness; no Suprapubic Tenderness SKIN: no Rashes Breast Exam deferred Mu.Sk: Adequate ROM no Muscle Atrophy Heme: Unable to palpate Obvious LAD no palp Splenomegaly NEURO: Good Strength and Tone Cranial Nerves II - XII grossly intact Psych: not Depressed no Active hallucination Assessment & Plan CKD III (cr Cl of 37 in the past) - HTNSive + Dm /NS + CHF. Current FLuid and E-lyte status does not necessitate emergent need for Dialysis. Will re- evaluate for Dialysis in am, Protein Gap with Low Alb : - ve PEPS earlier this year Proteinruia as reported by pt in the past - min on 24hr ruine - suspect MA Anemia: start Epogen Transfuse as needed. HTN: Current BP meds reviewed. See orders for changes. ? NSTEMI - IVF and NAC for LHC if/ when planned Possible UTI/ cystitis - With min hematirua - await cx CHF - EF 20% as ntoed - may be contributing to CKD also Pulm HTN as noted on ECHO - min edema per se Discussed Plan of Care and prognosis etc. at length with family. Vital Signs Vital Signs Date Time Temp Pulse Resp B/P (MAP) Pulse Ox O2 Delivery O2 Flow Rate FiO2 12/08/16 08:14 87 97/61 12/08/16 08:00 Nasal Cannula 2.0 12/08/16 07:00 97.9 20 94 97.9 Labs Labs Laboratory Tests Test 12/07/16 10:55 12/07/16 11:30 12/07/16 12:15 12/07/16 18:35 Urine Collection Type U cath Urine Color Yellow Urine Clarity Cloudy Urine pH 5.5 Urine Specific [place] 1.010 Urine Protein 30 mg/dL (NEG-TRACE) Urine Glucose (UA) Negative mg/dL (NEG) Urine Ketones (Stick) Negative mg/dL (NEG) Urine Blood Small (NEG) Urine Nitrite Positive (NEG) Urine Bilirubin Negative (NEG) Urine Urobilinogen Dipstick 0.2 mg/dL (0.2 mg/dL) Urine Leukocyte Esterase Large (NEG) Urine RBC 1-2 /HPF (0-2) Urine WBC >40 /HPF (0-4) Urine Transitional Epithelial Cells Occ /LPF Urine Bacteria Many /HPF (0-FEW) White Blood Count 10.8 x10^3/uL (4.0-11.0) Red Blood Count 3.60 x10^6/uL (3.50-5.40) Hemoglobin 9.7 g/dL (12.0-15.5) Hematocrit 29.8 % (36.0-47.0) Mean Corpuscular Volume 83 fL (79-100) Mean Corpuscular Hemoglobin 27 pg (25-35) Mean Corpuscular Hemoglobin Concent 32 g/dL (31-37) Red Cell Distribution Width 16.9 % (11.5-14.5) Platelet Count 203 x10^3/uL (140-400) Neutrophils (%) (Auto) 87 % (31-73) Lymphocytes (%) (Auto) 4 % (24-48) Monocytes (%) (Auto) 9 % (0-9) Eosinophils (%) (Auto) 0 % (0-3) Basophils (%) (Auto) 0 % (0-3) Neutrophils # (Auto) 9.5 x10^3uL (1.8-7.7) Lymphocytes # (Auto) 0.4 x10^3/uL (1.0-4.8) Monocytes # (Auto) 1.0 x10^3/uL (0.0-1.1) Eosinophils # (Auto) 0.0 x10^3/uL (0.0-0.7) Basophils # (Auto) 0.0 x10^3/uL (0.0-0.2) Segmented Neutrophils % 79 % (35-66) Band Neutrophils % 12 % (0-9) Lymphocytes % 5 % (24-48) Monocytes % 4 % (0-10) Platelet Estimate Adequate (ADEQUATE) Sodium Level 139 mmol/L (136-145) Potassium Level 4.8 mmol/L (3.5-5.1) Chloride Level 104 mmol/L (98-107) Carbon Dioxide Level 24 mmol/L (21-32) Anion Gap 11 (6-14) Blood Urea Nitrogen 43 mg/dL (7-20) Creatinine 1.9 mg/dL (0.6-1.0) Estimated GFR (Cockcroft-Gault) 32.6 BUN/Creatinine Ratio 23 (6-20) Glucose Level 221 mg/dL (70-99) Lactic Acid Level 1.8 mmol/L (0.4-2.0) 1.3 mmol/L (0.4-2.0) Calcium Level 9.3 mg/dL (8.5-10.1) Total Bilirubin 0.7 mg/dL (0.2-1.0) Aspartate Amino Transf (AST/SGOT) 51 U/L (15-37) Alanine Aminotransferase (ALT/SGPT) 34 U/L (14-59) Alkaline Phosphatase 305 U/L (46-116) Creatine Kinase 122 U/L (26-192) Creatine Kinase MB (Mass) < 0.5 ng/mL (0.0-3.6) Creatine Kinase MB Relative Index % (0-4) Troponin I Quantitative 0.588 ng/mL (0.000-0.055) 0.647 ng/mL (0.000-0.055) Total Protein 7.4 g/dL (6.4-8.2) Albumin 2.5 g/dL (3.4-5.0) Albumin/Globulin Ratio 0.5 (1.0-1.7) Procalcitonin 3.37 ng/mL (0.00-0.10) Test 12/07/16 21:24 12/08/16 00:50 12/08/16 06:56 Glucose (Fingerstick) 162 mg/dL (70-99) 123 mg/dL (70-99) White Blood Count 10.9 x10^3/uL (4.0-11.0) Red Blood Count 3.81 x10^6/uL (3.50-5.40) Hemoglobin 10.0 g/dL (12.0-15.5) Hematocrit 31.6 % (36.0-47.0) Mean Corpuscular Volume 83 fL (79-100) Mean Corpuscular Hemoglobin 26 pg (25-35) Mean Corpuscular Hemoglobin Concent 32 g/dL (31-37) Red Cell Distribution Width 17.1 % (11.5-14.5) Platelet Count 189 x10^3/uL (140-400) Neutrophils (%) (Auto) 78 % (31-73) Lymphocytes (%) (Auto) 13 % (24-48) Monocytes (%) (Auto) 8 % (0-9) Eosinophils (%) (Auto) 0 % (0-3) Basophils (%) (Auto) 0 % (0-3) Neutrophils # (Auto) 8.5 x10^3uL (1.8-7.7) Lymphocytes # (Auto) 1.4 x10^3/uL (1.0-4.8) Monocytes # (Auto) 0.9 x10^3/uL (0.0-1.1) Eosinophils # (Auto) 0.0 x10^3/uL (0.0-0.7) Basophils # (Auto) 0.0 x10^3/uL (0.0-0.2) Sodium Level 142 mmol/L (136-145) Potassium Level 4.3 mmol/L (3.5-5.1) Chloride Level 108 mmol/L (98-107) Carbon Dioxide Level 27 mmol/L (21-32) Anion Gap 7 (6-14) Blood Urea Nitrogen 43 mg/dL (7-20) Creatinine 1.9 mg/dL (0.6-1.0) Estimated GFR (Cockcroft-Gault) 32.6 Glucose Level 164 mg/dL (70-99) Calcium Level 8.7 mg/dL (8.5-10.1) Troponin I Quantitative 0.510 ng/mL (0.000-0.055) Laboratory Tests Test 12/07/16 10:55 12/07/16 11:30 12/07/16 12:15 12/07/16 18:35 Urine Collection Type U cath Urine Color Yellow Urine Clarity Cloudy Urine pH 5.5 Urine Specific [place] 1.010 Urine Protein 30 mg/dL (NEG-TRACE) Urine Glucose (UA) Negative mg/dL (NEG) Urine Ketones (Stick) Negative mg/dL (NEG) Urine Blood Small (NEG) Urine Nitrite Positive (NEG) Urine Bilirubin Negative (NEG) Urine Urobilinogen Dipstick 0.2 mg/dL (0.2 mg/dL) Urine Leukocyte Esterase Large (NEG) Urine RBC 1-2 /HPF (0-2) Urine WBC >40 /HPF (0-4) Urine Transitional Epithelial Cells Occ /LPF Urine Bacteria Many /HPF (0-FEW) White Blood Count 10.8 x10^3/uL (4.0-11.0) Red Blood Count 3.60 x10^6/uL (3.50-5.40) Hemoglobin 9.7 g/dL (12.0-15.5) Hematocrit 29.8 % (36.0-47.0) Mean Corpuscular Volume 83 fL (79-100) Mean Corpuscular Hemoglobin 27 pg (25-35) Mean Corpuscular Hemoglobin Concent 32 g/dL (31-37) Red Cell Distribution Width 16.9 % (11.5-14.5) Platelet Count 203 x10^3/uL (140-400) Neutrophils (%) (Auto) 87 % (31-73) Lymphocytes (%) (Auto) 4 % (24-48) Monocytes (%) (Auto) 9 % (0-9) Eosinophils (%) (Auto) 0 % (0-3) Basophils (%) (Auto) 0 % (0-3) Neutrophils # (Auto) 9.5 x10^3uL (1.8-7.7) Lymphocytes # (Auto) 0.4 x10^3/uL (1.0-4.8) Monocytes # (Auto) 1.0 x10^3/uL (0.0-1.1) Eosinophils # (Auto) 0.0 x10^3/uL (0.0-0.7) Basophils # (Auto) 0.0 x10^3/uL (0.0-0.2) Segmented Neutrophils % 79 % (35-66) Band Neutrophils % 12 % (0-9) Lymphocytes % 5 % (24-48) Monocytes % 4 % (0-10) Platelet Estimate Adequate (ADEQUATE) Sodium Level 139 mmol/L (136-145) Potassium Level 4.8 mmol/L (3.5-5.1) Chloride Level 104 mmol/L (98-107) Carbon Dioxide Level 24 mmol/L (21-32) Anion Gap 11 (6-14) Blood Urea Nitrogen 43 mg/dL (7-20) Creatinine 1.9 mg/dL (0.6-1.0) Estimated GFR (Cockcroft-Gault) 32.6 BUN/Creatinine Ratio 23 (6-20) Glucose Level 221 mg/dL (70-99) Lactic Acid Level 1.8 mmol/L (0.4-2.0) 1.3 mmol/L (0.4-2.0) Calcium Level 9.3 mg/dL (8.5-10.1) Total Bilirubin 0.7 mg/dL (0.2-1.0) Aspartate Amino Transf (AST/SGOT) 51 U/L (15-37) Alanine Aminotransferase (ALT/SGPT) 34 U/L (14-59) Alkaline Phosphatase 305 U/L (46-116) Creatine Kinase 122 U/L (26-192) Creatine Kinase MB (Mass) < 0.5 ng/mL (0.0-3.6) Creatine Kinase MB Relative Index % (0-4) Troponin I Quantitative 0.588 ng/mL (0.000-0.055) 0.647 ng/mL (0.000-0.055) Total Protein 7.4 g/dL (6.4-8.2) Albumin 2.5 g/dL (3.4-5.0) Albumin/Globulin Ratio 0.5 (1.0-1.7) Procalcitonin 3.37 ng/mL (0.00-0.10) Test 12/07/16 21:24 12/08/16 00:50 12/08/16 06:56 Glucose (Fingerstick) 162 mg/dL (70-99) 123 mg/dL (70-99) White Blood Count 10.9 x10^3/uL (4.0-11.0) Red Blood Count 3.81 x10^6/uL (3.50-5.40) Hemoglobin 10.0 g/dL (12.0-15.5) Hematocrit 31.6 % (36.0-47.0) Mean Corpuscular Volume 83 fL (79-100) Mean Corpuscular Hemoglobin 26 pg (25-35) Mean Corpuscular Hemoglobin Concent 32 g/dL (31-37) Red Cell Distribution Width 17.1 % (11.5-14.5) Platelet Count 189 x10^3/uL (140-400) Neutrophils (%) (Auto) 78 % (31-73) Lymphocytes (%) (Auto) 13 % (24-48) Monocytes (%) (Auto) 8 % (0-9) Eosinophils (%) (Auto) 0 % (0-3) Basophils (%) (Auto) 0 % (0-3) Neutrophils # (Auto) 8.5 x10^3uL (1.8-7.7) Lymphocytes # (Auto) 1.4 x10^3/uL (1.0-4.8) Monocytes # (Auto) 0.9 x10^3/uL (0.0-1.1) Eosinophils # (Auto) 0.0 x10^3/uL (0.0-0.7) Basophils # (Auto) 0.0 x10^3/uL (0.0-0.2) Sodium Level 142 mmol/L (136-145) Potassium Level 4.3 mmol/L (3.5-5.1) Chloride Level 108 mmol/L (98-107) Carbon Dioxide Level 27 mmol/L (21-32) Anion Gap 7 (6-14) Blood Urea Nitrogen 43 mg/dL (7-20) Creatinine 1.9 mg/dL (0.6-1.0) Estimated GFR (Cockcroft-Gault) 32.6 Glucose Level 164 mg/dL (70-99) Calcium Level 8.7 mg/dL (8.5-10.1) Troponin I Quantitative 0.510 ng/mL (0.000-0.055) INGRID LOMBARDI MD Dec 08, 2016 10:35
[2016-12-08] MEDS ORDERED: MAGNESIUM SULFATE 2GM 50 ML IV PRN (10:45)
[2016-12-08 10:59] VITALS: BP 98/55
--- NOTE | 2016-12-08 12:39 | PDOC ---
PROGRESS NOTES Chief Complaint Chief Complaint Urinary tract infection ASSESSMENT AND PLAN: 1. UTI: started on empiric ceftriax. awaiting cult and sensitivity 2. ASHLEY on CKD3-4: appreciate Dr Ewing's input. close to baseline currently 3. Troponin leak: stable in .5-.6 range; suspect chronic with CHF and CKD. cardiology consult pending. 4. CHF: chronic systolic (EF 20%). stop IVF 5. HTN: borderline low. appreciate Dr Mustafa's help w/ med management 6. Anemia: normocytic; 2/2 CKD. on EPO 7. Hypoalbuminemia: mod-severe. multiofactorial, with proteinuria (CKD), inflamamtion (CHF), malnutrition. nepro supplements 8. Dispo: poss D/C in AM with known sens, cardiac clearance History of Present Illness History of Present Illness tired, no other c/o Vitals Vitals Vital Signs Date Time Temp Pulse Resp B/P (MAP) Pulse Ox O2 Delivery O2 Flow Rate FiO2 12/08/16 10:59 97.9 97 18 98/55 (69) 91 Nasal Cannula 3.0 97.9 Physical Exam General: Alert, Oriented X3, Cooperative Heart: Regular rate, Normal S1, Normal S2, Other (3/6 systolic murmur ) Lungs: Clear, Other Abdomen: Soft, No tenderness Extremities: No edema, Normal pulses Skin: No breakdown, No significant lesion Labs LABS Laboratory Tests Test 12/07/16 18:35 12/07/16 21:24 12/08/16 00:50 12/08/16 06:56 Troponin I Quantitative 0.647 ng/mL (0.000-0.055) 0.510 ng/mL (0.000-0.055) Glucose (Fingerstick) 162 mg/dL (70-99) 123 mg/dL (70-99) White Blood Count 10.9 x10^3/uL (4.0-11.0) Red Blood Count 3.81 x10^6/uL (3.50-5.40) Hemoglobin 10.0 g/dL (12.0-15.5) Hematocrit 31.6 % (36.0-47.0) Mean Corpuscular Volume 83 fL (79-100) Mean Corpuscular Hemoglobin 26 pg (25-35) Mean Corpuscular Hemoglobin Concent 32 g/dL (31-37) Red Cell Distribution Width 17.1 % (11.5-14.5) Platelet Count 189 x10^3/uL (140-400) Neutrophils (%) (Auto) 78 % (31-73) Lymphocytes (%) (Auto) 13 % (24-48) Monocytes (%) (Auto) 8 % (0-9) Eosinophils (%) (Auto) 0 % (0-3) Basophils (%) (Auto) 0 % (0-3) Neutrophils # (Auto) 8.5 x10^3uL (1.8-7.7) Lymphocytes # (Auto) 1.4 x10^3/uL (1.0-4.8) Monocytes # (Auto) 0.9 x10^3/uL (0.0-1.1) Eosinophils # (Auto) 0.0 x10^3/uL (0.0-0.7) Basophils # (Auto) 0.0 x10^3/uL (0.0-0.2) Sodium Level 142 mmol/L (136-145) Potassium Level 4.3 mmol/L (3.5-5.1) Chloride Level 108 mmol/L (98-107) Carbon Dioxide Level 27 mmol/L (21-32) Anion Gap 7 (6-14) Blood Urea Nitrogen 43 mg/dL (7-20) Creatinine 1.9 mg/dL (0.6-1.0) Estimated GFR (Cockcroft-Gault) 32.6 Glucose Level 164 mg/dL (70-99) Calcium Level 8.7 mg/dL (8.5-10.1) Test 12/08/16 10:32 Glucose (Fingerstick) 148 mg/dL (70-99) LOI SYKES MD Dec 08, 2016 12:39
--- NOTE | 2016-12-08 13:57 | PDOC ---
CARDIO Progress Notes Date and Time Date of Service 12/08/16 Time of Evaluation 1240 Subjective Subjective: No Chest Pain, No shortness of breath, No Palpitations, Other ( feeling much better today. ) Vitals Vitals Vital Signs Date Time Temp Pulse Resp B/P (MAP) Pulse Ox O2 Delivery O2 Flow Rate FiO2 12/08/16 10:59 97.9 97 18 98/55 (69) 91 Nasal Cannula 3.0 97.9 Weight Weight [ ] Input and Output Intake and Output Intake and Output 12/08/16 07:00 Intake Total 170 ml Balance 170 ml Intake Oral 120 ml IV Total 50 ml # Voids 3 Laboratory Labs Laboratory Tests Test 12/07/16 18:35 12/07/16 21:24 12/08/16 00:50 12/08/16 06:56 Troponin I Quantitative 0.647 ng/mL (0.000-0.055) 0.510 ng/mL (0.000-0.055) Glucose (Fingerstick) 162 mg/dL (70-99) 123 mg/dL (70-99) White Blood Count 10.9 x10^3/uL (4.0-11.0) Red Blood Count 3.81 x10^6/uL (3.50-5.40) Hemoglobin 10.0 g/dL (12.0-15.5) Hematocrit 31.6 % (36.0-47.0) Mean Corpuscular Volume 83 fL (79-100) Mean Corpuscular Hemoglobin 26 pg (25-35) Mean Corpuscular Hemoglobin Concent 32 g/dL (31-37) Red Cell Distribution Width 17.1 % (11.5-14.5) Platelet Count 189 x10^3/uL (140-400) Neutrophils (%) (Auto) 78 % (31-73) Lymphocytes (%) (Auto) 13 % (24-48) Monocytes (%) (Auto) 8 % (0-9) Eosinophils (%) (Auto) 0 % (0-3) Basophils (%) (Auto) 0 % (0-3) Neutrophils # (Auto) 8.5 x10^3uL (1.8-7.7) Lymphocytes # (Auto) 1.4 x10^3/uL (1.0-4.8) Monocytes # (Auto) 0.9 x10^3/uL (0.0-1.1) Eosinophils # (Auto) 0.0 x10^3/uL (0.0-0.7) Basophils # (Auto) 0.0 x10^3/uL (0.0-0.2) Sodium Level 142 mmol/L (136-145) Potassium Level 4.3 mmol/L (3.5-5.1) Chloride Level 108 mmol/L (98-107) Carbon Dioxide Level 27 mmol/L (21-32) Anion Gap 7 (6-14) Blood Urea Nitrogen 43 mg/dL (7-20) Creatinine 1.9 mg/dL (0.6-1.0) Estimated GFR (Cockcroft-Gault) 32.6 Glucose Level 164 mg/dL (70-99) Calcium Level 8.7 mg/dL (8.5-10.1) Test 12/08/16 10:32 Glucose (Fingerstick) 148 mg/dL (70-99) Microbiology Micro Microbiology 12/07/16 Blood Culture - Final, Complete Physical Exam HEENT: Neck Supple W Full Motion Chest: Symmetric LUNGS: Clear to Auscultation Heart: S1S2, RRR, murmurs (3/6 systolic murmur) Abdomen: Soft N/T Extremities: No Edema, No Calf Tenderness Neurology: alert, oriented, follow commands Assessment Assessment 1. Chest pain, with atypical features. Recent stress test without any evidence of any significant ischemia as above. 2. Recent NSTEMI; troponin peak at 9.66 on 11/26/16; now peaked at 0.647 3. CAD; non-obstructive per cath in 06/2015 4. Chronic systolic heart failure with NICM; LVEF 20% per echo 10/03. LifeVest initiated. Appears compensated presently 5. Hypertension; now low-normotensive 6. Hyperlipidemia; on goal per recent lipid profile. Continue statin 7. CKD 8. Diabetes; as per IM 9. UTI with fevers; ? sepsis. fluid resuscitation initiated Recommendations Continue medical management Hold antiHTN therapy as warranted Resume LifeVest upon discharge with repeat echo in 2-3 months. Treatment of UTI per PCP May discharge from a CV standpoint and f/u in our office with Dr. Chavez in 6 weeks as scheduled. MARGIE CODY APRN Dec 08, 2016 13:57
[2016-12-08 15:04] VITALS: BP 99/61
[2016-12-08 19:00] VITALS: BP 115/70
[2016-12-08] MEDS ORDERED: DARBEPOETIN ALFA 60 MCG/0.3 ML DISP.SYRIN. SQ SCH (21:00)
[2016-12-08] MEDS: GABAPENTIN 300 MG CAPSULE. PO SCH (22:00)
[2016-12-08 22:45] VITALS: BP 123/69
[2016-12-08] MEDS: HYDROcodone/APAP 5/325MG 1 TAB TABLET PO PRN (22:55)
[2016-12-08] MEDS: CYCLOBENZAPRINE 10 MG TABLET. PO SCH (22:55)
[2016-12-08] MEDS: DOCUSATE SODIUM 100 MG CAPSULE. PO SCH (22:56)
[2016-12-08] MEDS: INSULIN DETEMIR 300 UNITS/3 ML INSULN.PEN. SQ SCH (23:03)
[2016-12-09 02:39] VITALS: BP 99/59
--- NOTE | 2016-12-09 04:20 | CONS ---
DATE OF CONSULTATION: PRIMARY PHYSICIAN: Dr. Khan. REASON FOR CONSULTATION: CKD. HISTORY OF PRESENT ILLNESS: The patient is a 61-year-old -[place] female with longstanding diabetes, diabetic retinopathy, unknown nephropathy and vasculopathy. She developed chest pain and generalized weakness, presented to the ER for further evaluation. The chest pain, however, was on the right side ____ right neck. She has also had a nonproductive cough. In the ER, she was noted to have a possible UTI, was admitted and is getting IV antibiotics. Blood cultures have also been done, which are pending at this time. She denies fevers per se; however, she did have a temperature of 104 at presentation. She is currently on antibiotics and afebrile. Denies any other problems at this time. Appetite has been good. She has not followed up with us after hospitalization here. She is known to have CHF with EF of 20%, moderate pulmonary hypertension and coronary artery disease as outlined in Cardiology notes. She does have marginal troponins currently also. I do not have further cardiology recommendations regarding evaluation of that. She remains on low-dose IV fluids at this time at 40 mL an hour possibly for ____. For rest of details, please see electronic renal consult note. INGRID LOMBARDI MD DR: HEMANTH/king JOB#: [id number] / [id number]
[2016-12-09 05:47] LABS: BASO % 0 % (0-3); EOS % 1 % (0-3); HEMATOCRIT 28.6 % (36.0-47.0); HEMOGLOBIN 9.5 g/dL (12.0-15.5); LYMPH # 1.5 x10^3/uL (1.0-4.8); LYMPH % 22 % (24-48); MEAN CORPUSCULAR HEMOGLOBIN 27 pg (25-35); MEAN CORPUSCULAR HGB CONC 33 g/dL (31-37); MEAN CORPUSCULAR VOLUME 82 fL (79-100); MONO % 11 % (0-9); NEUT % 66 % (31-73); PLATELET COUNT 181 x10^3/uL (140-400); RED CELL DISTRIBUTION WIDTH 17.3 % (11.5-14.5); WHITE BLOOD COUNT 6.7 x10^3/uL (4.0-11.0)
[2016-12-09 06:07] LABS: ALBUMIN 2.1 g/dL (3.4-5.0); CALCIUM 8.8 mg/dL (8.5-10.1); GFR 30.8; PHOSPHORUS 2.9 mg/dL (2.6-4.7); POTASSIUM 4.3 mmol/L (3.5-5.1)
[2016-12-09 07:00] VITALS: BP 104/64
[2016-12-09] MEDS ORDERED: SMZ/TMP 800/160MG TABLET. PO SCH (07:00)
[2016-12-09] MEDS: INSULIN ASPART 300 UNITS/3 ML INSULN.PEN SQ SCH ×6 (08:00→17:00)
[2016-12-09] MEDS: CYANOCOBALAMIN (VITAMIN B-12) 1,000 MCG TABLET. PO SCH (08:44)
[2016-12-09] MEDS: GABAPENTIN 300 MG CAPSULE. PO SCH ×3 (08:44→21:00)
[2016-12-09] MEDS: ASPIRIN CHEWABLE 81 MG TABLET. PO SCH (08:44)
[2016-12-09] MEDS: FUROSEMIDE 20 MG TABLET PO SCH ×2 (08:45→15:17)
[2016-12-09] MEDS: DOCUSATE SODIUM 100 MG CAPSULE. PO SCH ×2 (08:45→23:59)
[2016-12-09] MEDS: LOSARTAN POTASSIUM 50 MG TABLET. PO SCH (08:45)
[2016-12-09] MEDS: CARVEDILOL 3.125 MG TABLET. PO SCH ×2 (08:46→17:00)
[2016-12-09] MEDS: OXYBUTYNIN CHLORIDE 5 MG TABLET PO SCH (08:46)
[2016-12-09] MEDS: POLYETHYLENE GLYCOL 3350 17 GM PACKET. PO SCH (09:00)
[2016-12-09] MEDS: ESTROGENS, CONJ VAGINAL CREAM 30GM TUBE. VG SCH (09:00)
[2016-12-09] MEDS ORDERED: metFORMIN 500 MG TABLET PO SCH (09:00)
[2016-12-09 11:00] VITALS: BP 123/76
--- NOTE | 2016-12-09 11:01 | PDOC ---
SUBJECTIVE ROS CKD III c/o Neck Pain CVS: no Orthopnea, no CP RESP: no SOB, no PHILLIPS GI: no Nausea, no Vomiting : no Dysuria, no Urgency OBJECTIVE Vital Signs Vital Signs Date Time Temp Pulse Resp B/P (MAP) Pulse Ox O2 Delivery O2 Flow Rate FiO2 12/09/16 08:46 89 104/64 12/09/16 07:00 97.9 20 95 Nasal Cannula 3.0 97.9 I & 0 Intake and Output 12/09/16 06:59 Intake Total 2900 ml Balance 2900 ml Intake Oral 2900 ml # Voids 2 PHYSICAL EXAM Physical Exam General Appearance: Awake Alert Oriented x 3 In no Distress Eyes: ? dec VIsion Conjunctiva Normal EN: No EN Drainage Mucous Memb. moist Neck: no JVD no JVP Supple no Thyromegaly CVS: S1 S2 ? Murmur No Gallop No Rub no Edema Resp: no Rales no Rhonchi no Acc. Muscle use GI: BAS +ve NO Bruit Non Tender Non Distended : no CVA tenderness; no Suprapubic Tenderness Assessment & Plan CKD III (cr Cl of 37 in the past) - HTNSive + Dm /NS + CHF. Renal function remains stable for now. UO NR. Current FLuid and E-lyte status does not necessitate emergent need for Dialysis. Will re-evaluate for Dialysis in am, Anemia: start Epogen Transfuse as needed. HTN: Current BP meds reviewed. See orders for changes. ? NSTEMI - IVF and NAC for LHC if/ when planned Possible UTI/ cystitis with Sepsis - GNR as noted on cx report - With min hematirua - Abx per ID CHF - EF 20% as ntoed - may be contributing to CKD also Discussed Plan of Care and prognosis etc. at length with pt COMMENT/RELEVANT DATA Meds Current Medications Medications (Trade) Dose Ordered Sig/Wilfrid Start Time Stop Time Status Last Admin Dose Admin Acetaminophen (Tylenol) 650 mg PRN Q4HRS PRN 12/07/16 13:00 12/08/16 12:59 DC Acetaminophen/ Hydrocodone Bitart (Lortab 5/325) 1 tab PRN Q6HRS PRN 12/08/16 21:45 12/08/16 22:55 1 TAB Aspirin (Children'S Aspirin) 81 mg DAILY08 12/07/16 16:30 12/09/16 08:44 81 MG Carvedilol (Coreg) 3.125 mg BIDWMEALS 12/07/16 17:00 12/09/16 08:46 3.125 MG Ceftriaxone Sodium 1 gm/ Sodium Chloride 50 ml @ 100 mls/hr Q24H 12/08/16 13:00 12/08/16 23:24 DC Ceftriaxone Sodium 50 ml @ 100 mls/hr 1X ONCE 12/07/16 12:00 12/07/16 12:29 DC 12/07/16 12:03 100 MLS/HR Cyanocobalamin (Vitamin B-12) 500 mcg DAILY 12/09/16 09:00 12/09/16 08:44 500 MCG Cyclobenzaprine HCl (Flexeril) 10 mg QHS 12/08/16 22:00 12/08/16 22:55 10 MG Darbepoetin Joey (Aranesp) 60 mcg Th 12/08/16 21:00 12/08/16 21:00 60 MCG Dextrose (Dextrose 50%-Water Syringe) 12.5 gm PRN Q15MIN PRN 12/08/16 21:45 Docusate Sodium (Colace) 100 mg BID 12/08/16 22:00 12/09/16 08:45 100 MG Estrogens Conjugated (Premarin) 1 nelson 3X/WEEK 12/09/16 09:00 Fentanyl Citrate (Fentanyl 2ml Vial) 50 mcg PRN Q2HR PRN 12/07/16 13:00 12/08/16 12:59 DC Furosemide (Lasix) 20 mg [id number] 12/07/16 16:30 12/09/16 08:45 20 MG Gabapentin (Neurontin) 600 mg TID 12/08/16 22:00 12/09/16 08:44 600 MG Insulin Aspart (NovoLOG) 0-9 UNITS TIDWMEALS 12/09/16 08:00 Insulin Detemir (Levemir) 25 units QHS 12/08/16 22:00 12/08/16 23:03 25 UNITS Losartan Potassium (Cozaar) 50 mg DAILY 12/07/16 16:30 12/09/16 08:45 50 MG Magnesium Sulfate/ Dextrose 50 ml @ 25 mls/hr PRN DAILY PRN 12/08/16 10:45 Metformin HCl (Glucophage) 1,000 mg BID 12/09/16 09:00 UNV Ondansetron HCl (Zofran) 4 mg PRN Q8HRS PRN 12/07/16 13:00 12/08/16 12:59 DC Oxybutynin Chloride (Ditropan) 5 mg DAILY 12/09/16 09:00 12/09/16 08:46 5 MG Polyethylene Glycol (miraLAX PACKET) 17 gm DAILY 12/09/16 09:00 Sodium Chloride 1,000 ml @ 100 mls/hr Q10H 12/07/16 12:50 12/08/16 12:33 DC 12/08/16 08:20 100 MLS/HR Trimethoprim/ Sulfamethoxazole (Bactrim Ds) 1 tab [id number] 12/09/16 07:00 12/09/16 06:35 1 TAB Lab Laboratory Tests Test 12/08/16 16:26 12/08/16 20:32 12/09/16 05:00 12/09/16 06:55 Glucose (Fingerstick) 152 mg/dL (70-99) 255 mg/dL (70-99) 123 mg/dL (70-99) White Blood Count 6.7 x10^3/uL (4.0-11.0) Red Blood Count 3.50 x10^6/uL (3.50-5.40) Hemoglobin 9.5 g/dL (12.0-15.5) Hematocrit 28.6 % (36.0-47.0) Mean Corpuscular Volume 82 fL (79-100) Mean Corpuscular Hemoglobin 27 pg (25-35) Mean Corpuscular Hemoglobin Concent 33 g/dL (31-37) Red Cell Distribution Width 17.3 % (11.5-14.5) Platelet Count 181 x10^3/uL (140-400) Neutrophils (%) (Auto) 66 % (31-73) Lymphocytes (%) (Auto) 22 % (24-48) Monocytes (%) (Auto) 11 % (0-9) Eosinophils (%) (Auto) 1 % (0-3) Basophils (%) (Auto) 0 % (0-3) Neutrophils # (Auto) 4.5 x10^3uL (1.8-7.7) Lymphocytes # (Auto) 1.5 x10^3/uL (1.0-4.8) Monocytes # (Auto) 0.7 x10^3/uL (0.0-1.1) Eosinophils # (Auto) 0.0 x10^3/uL (0.0-0.7) Basophils # (Auto) 0.0 x10^3/uL (0.0-0.2) Sodium Level 135 mmol/L (136-145) Potassium Level 4.3 mmol/L (3.5-5.1) Chloride Level 103 mmol/L (98-107) Carbon Dioxide Level 22 mmol/L (21-32) Anion Gap 10 (6-14) Blood Urea Nitrogen 45 mg/dL (7-20) Creatinine 2.0 mg/dL (0.6-1.0) Estimated GFR (Cockcroft-Gault) 30.8 Glucose Level 178 mg/dL (70-99) Calcium Level 8.8 mg/dL (8.5-10.1) Phosphorus Level 2.9 mg/dL (2.6-4.7) Magnesium Level 2.2 mg/dL (1.8-2.4) Albumin 2.1 g/dL (3.4-5.0) INGRID LOMBARDI MD Dec 09, 2016 11:01
--- NOTE | 2016-12-09 13:27 | PDOC ---
Infectious Disease Note ROS ROS Vital Sign Vital Signs Vital Signs Date Time Temp Pulse Resp B/P (MAP) Pulse Ox O2 Delivery O2 Flow Rate FiO2 12/09/16 11:00 97.9 91 20 123/76 (92) 99 Nasal Cannula 3.0 97.9 Labs Lab Laboratory Tests Test 12/08/16 16:26 12/08/16 20:32 12/09/16 05:00 12/09/16 06:55 Glucose (Fingerstick) 152 mg/dL (70-99) 255 mg/dL (70-99) 123 mg/dL (70-99) White Blood Count 6.7 x10^3/uL (4.0-11.0) Red Blood Count 3.50 x10^6/uL (3.50-5.40) Hemoglobin 9.5 g/dL (12.0-15.5) Hematocrit 28.6 % (36.0-47.0) Mean Corpuscular Volume 82 fL (79-100) Mean Corpuscular Hemoglobin 27 pg (25-35) Mean Corpuscular Hemoglobin Concent 33 g/dL (31-37) Red Cell Distribution Width 17.3 % (11.5-14.5) Platelet Count 181 x10^3/uL (140-400) Neutrophils (%) (Auto) 66 % (31-73) Lymphocytes (%) (Auto) 22 % (24-48) Monocytes (%) (Auto) 11 % (0-9) Eosinophils (%) (Auto) 1 % (0-3) Basophils (%) (Auto) 0 % (0-3) Neutrophils # (Auto) 4.5 x10^3uL (1.8-7.7) Lymphocytes # (Auto) 1.5 x10^3/uL (1.0-4.8) Monocytes # (Auto) 0.7 x10^3/uL (0.0-1.1) Eosinophils # (Auto) 0.0 x10^3/uL (0.0-0.7) Basophils # (Auto) 0.0 x10^3/uL (0.0-0.2) Sodium Level 135 mmol/L (136-145) Potassium Level 4.3 mmol/L (3.5-5.1) Chloride Level 103 mmol/L (98-107) Carbon Dioxide Level 22 mmol/L (21-32) Anion Gap 10 (6-14) Blood Urea Nitrogen 45 mg/dL (7-20) Creatinine 2.0 mg/dL (0.6-1.0) Estimated GFR (Cockcroft-Gault) 30.8 Glucose Level 178 mg/dL (70-99) Calcium Level 8.8 mg/dL (8.5-10.1) Phosphorus Level 2.9 mg/dL (2.6-4.7) Magnesium Level 2.2 mg/dL (1.8-2.4) Albumin 2.1 g/dL (3.4-5.0) Test 12/09/16 11:17 Glucose (Fingerstick) 134 mg/dL (70-99) Micro BLOOD CULT RESULT 1 Preliminary Gram negative rods URINE CULTURE RES 1 Final Escherichia coli Antibiotic RSLT#1 Amoxicillin/Clavulanic Acid S Ampicillin S Cefepime S Ceftriaxone S Cefuroxime S Cephalothin S Ciprofloxacin S Ertapenem S Gentamicin S Imipenem S Levofloxacin S Nitrofurantoin S Piperacillin S Tetracycline S Tobramycin S Trimethoprim/Sulfa S Objective Assessment GNR sepsis, POA 12/07 E. coli UTI, POA 12/07 Cipro allergy, unknown reaction CKD Diabetes Chronic systolic heart failure Recent left 2nd toe infection s/p partial amputation, healed. h/o MRSA Plan Plan of Care changed Bactrim to Rocephin Await GNR ID likely Ecoli given urine Monitor WBC, Cr and temp Previous records reviewed Thank you [id number] Attending Co-Sign Attending Co-Sign The patient was seen and interviewed as well as examined at the bedside. The chart was reviewed. The case was discussed. Agree with the plan of care. SAJI DUGAN APRN Dec 09, 2016 13:27 CHELI GROSSMAN MD Dec 09, 2016 15:07
[2016-12-09] MEDS ORDERED: LIDOCAINE 1% / SOD BICARB 8.4% 20 ML VIAL. IJ ONE ×2 (14:19→14:30)
--- NOTE | 2016-12-09 14:52 | PDOC ---
Exam Washer Off Washer Off Tiffani Cone Operator Cone Operator Kam Ramírez Pre-Procedure Diagnosis Pre-Procedure Diagnosis 61 YO female with E Coli UTI with sepsis. 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 Post-Procedure Diagnosis Post-Procedure Diagnosis Same. Procedure Performed Procedure Performed Sono/fluoro guided Power Picc insertion. Type of Anesthesia Type of Anesthesia Local Estimated Blood Loss EBL: Minimal Drain/Tubes Drains/Tubes Right brachial vein 5F 2L 37cm Power Picc. Condition of Patient Condition of Patient Stable. No apparent complication. Disposition Disposition From IR return to [facility]. OK to use Power Picc. Full report to follow. JOSE MONTERO MD Dec 09, 2016 14:52
[2016-12-09 15:00] VITALS: BP 119/54
--- NOTE | 2016-12-09 15:39 | PDOC ---
PROGRESS NOTES Chief Complaint Chief Complaint Urinary tract infection Sepsis ASSESSMENT AND PLAN: 1. Sepsis: E.coli in urine, GNR in blood (prelim report), most likely same. apreciate ID input 1. UTI: pansensitive E.coli. ceftriax D#2 2. 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 monitor 3. Troponin leak: stable in .5-.6 range; suspect chronic with CHF and CKD. cardiologyrec to resume [facility] upon discharge with repeat echo in 2-3 months; F/U w/ Dr Chavez as perviously scheduled 4. CHF: chronic systolic (EF 20%). stop IVF 5. HTN: borderline low. appreciate Dr Mustafa's help w/ med management 6. Anemia: normocytic; 2/2 CKD. on EPO 7. Hypoalbuminemia: mod-severe. multiofactorial, with proteinuria (CKD), inflammation (CHF), malnutrition. nepro supplements 8. Dispo: await final blood cult. ID rec.s re [facility] Abx History of Present Illness History of Present Illness tired, no other c/o Vitals Vitals Vital Signs Date Time Temp Pulse Resp B/P (MAP) Pulse Ox O2 Delivery O2 Flow Rate FiO2 12/09/16 11:00 97.9 91 20 123/76 (92) 99 Nasal Cannula 3.0 97.9 Physical Exam General: Alert, Oriented X3, Cooperative, No acute distress Heart: Regular rate, Other (3/6 systolic murmur ) Lungs: Clear, Other Abdomen: Soft, No tenderness Extremities: No edema, Normal pulses Skin: No breakdown, No significant lesion Labs LABS Laboratory Tests Test 12/08/16 16:26 12/08/16 20:32 12/09/16 05:00 12/09/16 06:55 Glucose (Fingerstick) 152 mg/dL (70-99) 255 mg/dL (70-99) 123 mg/dL (70-99) White Blood Count 6.7 x10^3/uL (4.0-11.0) Red Blood Count 3.50 x10^6/uL (3.50-5.40) Hemoglobin 9.5 g/dL (12.0-15.5) Hematocrit 28.6 % (36.0-47.0) Mean Corpuscular Volume 82 fL (79-100) Mean Corpuscular Hemoglobin 27 pg (25-35) Mean Corpuscular Hemoglobin Concent 33 g/dL (31-37) Red Cell Distribution Width 17.3 % (11.5-14.5) Platelet Count 181 x10^3/uL (140-400) Neutrophils (%) (Auto) 66 % (31-73) Lymphocytes (%) (Auto) 22 % (24-48) Monocytes (%) (Auto) 11 % (0-9) Eosinophils (%) (Auto) 1 % (0-3) Basophils (%) (Auto) 0 % (0-3) Neutrophils # (Auto) 4.5 x10^3uL (1.8-7.7) Lymphocytes # (Auto) 1.5 x10^3/uL (1.0-4.8) Monocytes # (Auto) 0.7 x10^3/uL (0.0-1.1) Eosinophils # (Auto) 0.0 x10^3/uL (0.0-0.7) Basophils # (Auto) 0.0 x10^3/uL (0.0-0.2) Sodium Level 135 mmol/L (136-145) Potassium Level 4.3 mmol/L (3.5-5.1) Chloride Level 103 mmol/L (98-107) Carbon Dioxide Level 22 mmol/L (21-32) Anion Gap 10 (6-14) Blood Urea Nitrogen 45 mg/dL (7-20) Creatinine 2.0 mg/dL (0.6-1.0) Estimated GFR (Cockcroft-Gault) 30.8 Glucose Level 178 mg/dL (70-99) Calcium Level 8.8 mg/dL (8.5-10.1) Phosphorus Level 2.9 mg/dL (2.6-4.7) Magnesium Level 2.2 mg/dL (1.8-2.4) Albumin 2.1 g/dL (3.4-5.0) Test 12/09/16 11:17 Glucose (Fingerstick) 134 mg/dL (70-99) LOI SYKES MD Dec 09, 2016 15:39
[2016-12-09] MEDS: DEXTROSE 50% 25 GM / 50ML DISP.SYRIN. IV PRN (16:57)
[2016-12-09 19:00] VITALS: BP 133/83
[2016-12-09 23:00] VITALS: BP 119/66
[2016-12-09] MEDS: CYCLOBENZAPRINE 10 MG TABLET. PO SCH (23:59)
[2016-12-10] MEDS: INSULIN DETEMIR 300 UNITS/3 ML INSULN.PEN. SQ SCH ×2 (00:05→21:42)
--- NOTE | 2016-12-10 02:08 | CONS ---
DATE OF CONSULTATION: 12/08/2016 REQUESTING PHYSICIAN: Dr. Maryann Jacome. REASON FOR CONSULTATION: Gram-negative rods in urine. HISTORY OF PRESENT ILLNESS: The patient is a 61-year-old female with a past medical history of diabetes mellitus and chronic kidney disease, who presented with acute onset of chest discomfort and chills. She has also been having some abdominal discomfort, urinary urgency and frequency with some improvement with cranberry juice. On arrival, she had an elevated temperature of 104.0. Urinalysis was positive for wbc's, leukocyte esterase and nitrites. A urine culture grew E. coli pansensitive. Blood culture returned positive for gram-negative rods 2 of 2 sets. She was recently on antibiotics for a left toe infection, status post partial amputation. She is currently on Bactrim. ID has been asked to consult for further evaluation and antibiotic management. PAST MEDICAL HISTORY: 1. Klebsiella and E. coli infection, left toe, status post partial amputation. 2. History of MRSA. 3. Chronic systolic congestive heart failure with nonischemic cardiomyopathy, ejection fraction 20%. 4. Coronary artery disease. 5. Cardiac arrhythmia. 6. Diabetes mellitus. 7. Chronic kidney disease stage 3. 8. Gastroesophageal reflux disease. 9. Obesity. 10. Pancreatitis in 1972. 11. Hyperlipidemia. 12. Hypertension. 13. Peripheral neuropathy. PAST SURGICAL HISTORY: Cataract extraction, tonsillectomy, pacemaker placement and removal, cholecystectomy, hysterectomy, partial amputation of left great toe. FAMILY HISTORY: Positive for diabetes mellitus, cardiovascular disease and cancer. SOCIAL HISTORY: The patient lives at home. Nonsmoker. ALLERGIES: CIPROFLOXACIN, REACTION UNKNOWN AND CELECOXIB. CURRENT MEDICATIONS: Currently on Bactrim. Other medications are available and have been reviewed on the AUG. REVIEW OF SYSTEMS: The patient is feeling alright at the moment. Denies headache, nasal/sinus congestion or sore throat. The patient denies difficulty breathing. Mild cough with phlegm production. Mild upset stomach. Denies nausea, vomiting or diarrhea. Denies palpitations or swelling. Denies rash. PHYSICAL EXAMINATION: GENERAL: An -Serbian female, propped up in bed, in no apparent distress. VITAL SIGNS: Temperature is 97.9, blood pressure 123/76, heart rate 91, respiratory rate 20, pulse oximetry 99% on 3 liters. Weight is 199 pounds, BMI 32. HEENT: Pupils equally round, normal conjunctivae. Oral mucosa is pink and moist. NECK: Supple. LUNGS: Clear to auscultation. HEART: Normal S1, S2. ABDOMEN: Obese, bowel sounds present, soft, nontender. EXTREMITIES: No gross edema or cyanosis. GUILLERMO hose on. SKIN: Without rash. Warm to touch. NEUROLOGIC: Alert and oriented x 3. LABORATORY DATA: Today's WBC 6.7 from 10.8 on admission, hemoglobin 9.5, platelet count 181,000. Electrolytes are unremarkable. Creatinine 2.0, BUN 45. Glucose 178, albumin 2.1. Troponin 0.510. Procalcitonin 3.37, total bilirubin 0.7, AST 51, ALT 34. Chest x-ray changes suggestive of mild congestive heart failure. Significant pleural fluid is not present. IMPRESSION: 1. Gram-negative renetta sepsis present on admission. 2. Escherichia coli urinary tract infection present on admission. 3. CIPROFLOXACIN ALLERGY, REACTION UNKNOWN. 4. Chronic kidney disease. 5. Diabetes mellitus. 6. Chronic systolic heart failure. PLAN: 1. Change the Bactrim to ceftriaxone. Monitor WBC count, creatinine and temperature. Await final GNR identification and susceptibilities. Previous records were reviewed. Thank you, Dr. Jacome, for asking us to participate in this patient's care. Should you have further questions or concerns, please call. CHELI GROSSMAN MD DR: NICOLE/king JOB#: [id number] / [id number] YOHANA
[2016-12-10 04:55] LABS: BASO % 0 % (0-3); EOS % 1 % (0-3); HEMATOCRIT 29.4 % (36.0-47.0); HEMOGLOBIN 9.4 g/dL (12.0-15.5); LYMPH # 1.2 x10^3/uL (1.0-4.8); LYMPH % 20 % (24-48); MEAN CORPUSCULAR HEMOGLOBIN 26 pg (25-35); MEAN CORPUSCULAR HGB CONC 32 g/dL (31-37); MEAN CORPUSCULAR VOLUME 82 fL (79-100); MONO % 12 % (0-9); NEUT % 67 % (31-73); PLATELET COUNT 206 x10^3/uL (140-400); RED BLOOD COUNT 3.57 x10^6/uL (3.50-5.40); RED CELL DISTRIBUTION WIDTH 17.2 % (11.5-14.5); WHITE BLOOD COUNT 5.9 x10^3/uL (4.0-11.0)
[2016-12-10 05:30] LABS: ALBUMIN 2.2 g/dL (3.4-5.0); CALCIUM 8.6 mg/dL (8.5-10.1); CREATININE 2.1 mg/dL (0.6-1.0); GFR 29.1; PHOSPHORUS 3.4 mg/dL (2.6-4.7); POTASSIUM 4.6 mmol/L (3.5-5.1)
[2016-12-10 07:00] VITALS: BP_SYST 102; BP_SYST 116; BP_DIAS 60; BP_DIAS 65
[2016-12-10] MEDS: INSULIN ASPART 300 UNITS/3 ML INSULN.PEN SQ SCH ×6 (07:40→16:33)
[2016-12-10] MEDS: CARVEDILOL 3.125 MG TABLET. PO SCH ×2 (07:52→16:52)
[2016-12-10] MEDS: ASPIRIN CHEWABLE 81 MG TABLET. PO SCH (07:52)
[2016-12-10] MEDS: GABAPENTIN 300 MG CAPSULE. PO SCH ×3 (09:00→20:44)
[2016-12-10] MEDS: DOCUSATE SODIUM 100 MG CAPSULE. PO SCH ×2 (09:03→20:44)
[2016-12-10] MEDS: FUROSEMIDE 20 MG TABLET PO SCH ×2 (09:03→16:51)
[2016-12-10] MEDS: CYANOCOBALAMIN (VITAMIN B-12) 1,000 MCG TABLET. PO SCH (09:04)
[2016-12-10] MEDS: LOSARTAN POTASSIUM 50 MG TABLET. PO SCH (09:04)
[2016-12-10] MEDS: OXYBUTYNIN CHLORIDE 5 MG TABLET PO SCH (09:04)
[2016-12-10] MEDS: POLYETHYLENE GLYCOL 3350 17 GM PACKET. PO SCH (09:04)
--- NOTE | 2016-12-10 10:18 | PDOC ---
Infectious Disease Note Subjective Subjective Comfortable, denies pain ROS ROS GEN: Denies fevers, chills, sweats CV: Denies chest pain RESP: Denies shortness of air, cough GI: Denies n/v/d Vital Sign Vital Signs Vital Signs Date Time Temp Pulse Resp B/P (MAP) Pulse Ox O2 Delivery O2 Flow Rate FiO2 12/10/16 09:04 76 116/60 12/10/16 08:00 Nasal Cannula 2.0 12/10/16 07:00 97.9 16 96 97.9 Physical Exam PHYSICAL EXAM GENERAL: Propped up in bed, NAD HEENT: Oral mucosa is pink NECK: Supple. LUNGS: Clear to auscultation. HEART: Normal S1, S2. ABDOMEN: Obese, bowel sounds present, soft, nontender. EXTREMITIES: No gross edema or cyanosis. GUILLERMO hose on. Previous amp unremarkable SKIN: Without rash. Warm to touch. NEUROLOGIC: Alert and oriented x 3. Labs Lab Laboratory Tests Test 12/09/16 11:17 12/09/16 16:05 12/09/16 16:25 12/09/16 16:27 Glucose (Fingerstick) 134 mg/dL (70-99) 57 mg/dL (70-99) 49 mg/dL (70-99) 56 mg/dL (70-99) Test 12/09/16 18:12 12/09/16 21:11 12/10/16 04:40 12/10/16 07:29 Glucose (Fingerstick) 133 mg/dL (70-99) 151 mg/dL (70-99) 143 mg/dL (70-99) White Blood Count 5.9 x10^3/uL (4.0-11.0) Red Blood Count 3.57 x10^6/uL (3.50-5.40) Hemoglobin 9.4 g/dL (12.0-15.5) Hematocrit 29.4 % (36.0-47.0) Mean Corpuscular Volume 82 fL (79-100) Mean Corpuscular Hemoglobin 26 pg (25-35) Mean Corpuscular Hemoglobin Concent 32 g/dL (31-37) Red Cell Distribution Width 17.2 % (11.5-14.5) Platelet Count 206 x10^3/uL (140-400) Neutrophils (%) (Auto) 67 % (31-73) Lymphocytes (%) (Auto) 20 % (24-48) Monocytes (%) (Auto) 12 % (0-9) Eosinophils (%) (Auto) 1 % (0-3) Basophils (%) (Auto) 0 % (0-3) Neutrophils # (Auto) 3.9 x10^3uL (1.8-7.7) Lymphocytes # (Auto) 1.2 x10^3/uL (1.0-4.8) Monocytes # (Auto) 0.7 x10^3/uL (0.0-1.1) Eosinophils # (Auto) 0.1 x10^3/uL (0.0-0.7) Basophils # (Auto) 0.0 x10^3/uL (0.0-0.2) Sodium Level 137 mmol/L (136-145) Potassium Level 4.6 mmol/L (3.5-5.1) Chloride Level 103 mmol/L (98-107) Carbon Dioxide Level 25 mmol/L (21-32) Anion Gap 9 (6-14) Blood Urea Nitrogen 45 mg/dL (7-20) Creatinine 2.1 mg/dL (0.6-1.0) Estimated GFR (Cockcroft-Gault) 29.1 Glucose Level 158 mg/dL (70-99) Calcium Level 8.6 mg/dL (8.5-10.1) Phosphorus Level 3.4 mg/dL (2.6-4.7) Magnesium Level 2.0 mg/dL (1.8-2.4) Albumin 2.2 g/dL (3.4-5.0) Micro BLD CULT RESULT 1 Final Escherichia coli BLOOD CULTURE PRL Preliminary Preliminary report BLD CULT RESULT 1 Preliminary Escherichia coli Recovered from anaerobic bottle only. GROWTH IN 2 OF 2 SETS ANTIMICROBIAL SUSCEPTIBILITY Preliminary Comment S = Susceptible; I = Intermediate; R = Resistant P = Positive; N = Negative MICS are expressed in micrograms per mL Antibiotic RSLT#1 RSLT#2 RSLT#3 RSLT#4 Amoxicillin/Clavulanic Acid S Ampicillin R Cefepime S Ceftriaxone S Cefuroxime S Cephalothin I Ciprofloxacin S Ertapenem S Gentamicin S Imipenem S Levofloxacin S Nitrofurantoin S Piperacillin R Tetracycline R Tobramycin S Trimethoprim/Sulfa R URINE CULTURE RES 1 Final Escherichia coli Antibiotic RSLT#1 Amoxicillin/Clavulanic Acid S Ampicillin S Cefepime S Ceftriaxone S Cefuroxime S Cephalothin S Ciprofloxacin S Ertapenem S Gentamicin S Imipenem S Levofloxacin S Nitrofurantoin S Piperacillin S Tetracycline S Tobramycin S Trimethoprim/Sulfa S Objective Assessment Ecoli sepsis, POA. E. coli 12/07 E. coli UTI, POA Cipro allergy, unknown reaction CKD Diabetes Chronic systolic heart failure Recent left 2nd toe infection s/p partial amputation, healed. h/o MRSA Plan Plan of Care Cont Rocephin Monitor WBC, Cr and temp Attending Co-Sign Attending Co-Sign The patient was seen and interviewed as well as examined at the bedside. The chart was reviewed. The case was discussed. Agree with the plan of care. SAJI DUGAN APRN Dec 10, 2016 10:18 CHELI GROSSMAN MD Dec 10, 2016 13:11
[2016-12-10 11:00] VITALS: BP 93/63
--- NOTE | 2016-12-10 11:37 | PDOC ---
PROGRESS NOTES Chief Complaint Chief Complaint Urinary tract infection Sepsis E Coli bacteremia ASSESSMENT AND PLAN: 1. Sepsis: E.coli in urine, GNR in blood (prelim report), most likely same. apreciate ID input 1. UTI: pansensitive E.coli. ceftriax D#2 2. 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 monitor 3. Troponin leak: stable in .5-.6 range; suspect chronic with CHF and CKD. cardiologyrec to resume [facility] upon discharge with repeat echo in 2-3 months; F/U w/ Dr Chavez as perviously scheduled 4. CHF: chronic systolic (EF 20%). stop IVF 5. HTN: borderline low. appreciate Dr Mustafa's help w/ med management 6. Anemia: normocytic; 2/2 CKD. on EPO 7. Hypoalbuminemia: mod-severe. multiofactorial, with proteinuria (CKD), inflammation (CHF), malnutrition. nepro supplements 8. Dispo: await final blood cult. ID rec.s re shelter Abx History of Present Illness History of Present Illness Tired, no other c/o Dw RN Examined with I.D. [employer] Vitals Vitals Vital Signs Date Time Temp Pulse Resp B/P (MAP) Pulse Ox O2 Delivery O2 Flow Rate FiO2 12/10/16 11:00 98.5 68 20 93/63 (73) 96 Nasal Cannula 2.0 98.5 Physical Exam General: Alert, Oriented X3, Cooperative, No acute distress Heart: Regular rate, Other (3/6 systolic murmur ) Lungs: Clear, Other Abdomen: Soft, No tenderness Extremities: No edema, Normal pulses Skin: No breakdown, No significant lesion Labs LABS Laboratory Tests Test 12/09/16 16:05 12/09/16 16:25 12/09/16 16:27 12/09/16 18:12 Glucose (Fingerstick) 57 mg/dL (70-99) 49 mg/dL (70-99) 56 mg/dL (70-99) 133 mg/dL (70-99) Test 12/09/16 21:11 12/10/16 04:40 12/10/16 07:29 12/10/16 10:58 Glucose (Fingerstick) 151 mg/dL (70-99) 143 mg/dL (70-99) 117 mg/dL (70-99) White Blood Count 5.9 x10^3/uL (4.0-11.0) Red Blood Count 3.57 x10^6/uL (3.50-5.40) Hemoglobin 9.4 g/dL (12.0-15.5) Hematocrit 29.4 % (36.0-47.0) Mean Corpuscular Volume 82 fL (79-100) Mean Corpuscular Hemoglobin 26 pg (25-35) Mean Corpuscular Hemoglobin Concent 32 g/dL (31-37) Red Cell Distribution Width 17.2 % (11.5-14.5) Platelet Count 206 x10^3/uL (140-400) Neutrophils (%) (Auto) 67 % (31-73) Lymphocytes (%) (Auto) 20 % (24-48) Monocytes (%) (Auto) 12 % (0-9) Eosinophils (%) (Auto) 1 % (0-3) Basophils (%) (Auto) 0 % (0-3) Neutrophils # (Auto) 3.9 x10^3uL (1.8-7.7) Lymphocytes # (Auto) 1.2 x10^3/uL (1.0-4.8) Monocytes # (Auto) 0.7 x10^3/uL (0.0-1.1) Eosinophils # (Auto) 0.1 x10^3/uL (0.0-0.7) Basophils # (Auto) 0.0 x10^3/uL (0.0-0.2) Sodium Level 137 mmol/L (136-145) Potassium Level 4.6 mmol/L (3.5-5.1) Chloride Level 103 mmol/L (98-107) Carbon Dioxide Level 25 mmol/L (21-32) Anion Gap 9 (6-14) Blood Urea Nitrogen 45 mg/dL (7-20) Creatinine 2.1 mg/dL (0.6-1.0) Estimated GFR (Cockcroft-Gault) 29.1 Glucose Level 158 mg/dL (70-99) Calcium Level 8.6 mg/dL (8.5-10.1) Phosphorus Level 3.4 mg/dL (2.6-4.7) Magnesium Level 2.0 mg/dL (1.8-2.4) Albumin 2.2 g/dL (3.4-5.0) Review of Systems Review of Systems co weak co pain Assessment and Plan Assessmemt and Plan Problems Medical Problems: (1) Elevated troponin Status: Acute (2) Renal insufficiency Status: Acute (3) Sepsis Status: Acute (4) Urinary tract infection Status: Acute ASSESSMENT AND PLAN: 1. Sepsis: E.coli in urine, GNR in blood (prelim report), most likely same. apreciate ID input. Cont Rocephin 1. UTI: pansensitive E.coli. ceftriax D#2 2. 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 monitor 3. Troponin leak: stable in .5-.6 range; suspect chronic with CHF and CKD. cardiologyrec to resume [facility] upon discharge with repeat echo in 2-3 months; F/U w/ Dr Chavez as perviously scheduled 4. CHF: chronic systolic (EF 20%). stop IVF 5. HTN: borderline low. appreciate Dr Musatfa's help w/ med management 6. Anemia: normocytic; 2/2 CKD. on EPO 7. Hypoalbuminemia: mod-severe. multiofactorial, with proteinuria (CKD), inflammation (CHF), malnutrition. nepro supplements 8. Dispo: await final blood cult. ID rec.s re terminal gauger Abx Problems: Comment Review of Relevant I have reviewed the following items bro (where applicable) has been applied. Labs Laboratory Tests Test 12/08/16 16:26 12/08/16 20:32 12/09/16 05:00 12/09/16 06:55 Glucose (Fingerstick) 152 mg/dL (70-99) 255 mg/dL (70-99) 123 mg/dL (70-99) White Blood Count 6.7 x10^3/uL (4.0-11.0) Red Blood Count 3.50 x10^6/uL (3.50-5.40) Hemoglobin 9.5 g/dL (12.0-15.5) Hematocrit 28.6 % (36.0-47.0) Mean Corpuscular Volume 82 fL (79-100) Mean Corpuscular Hemoglobin 27 pg (25-35) Mean Corpuscular Hemoglobin Concent 33 g/dL (31-37) Red Cell Distribution Width 17.3 % (11.5-14.5) Platelet Count 181 x10^3/uL (140-400) Neutrophils (%) (Auto) 66 % (31-73) Lymphocytes (%) (Auto) 22 % (24-48) Monocytes (%) (Auto) 11 % (0-9) Eosinophils (%) (Auto) 1 % (0-3) Basophils (%) (Auto) 0 % (0-3) Neutrophils # (Auto) 4.5 x10^3uL (1.8-7.7) Lymphocytes # (Auto) 1.5 x10^3/uL (1.0-4.8) Monocytes # (Auto) 0.7 x10^3/uL (0.0-1.1) Eosinophils # (Auto) 0.0 x10^3/uL (0.0-0.7) Basophils # (Auto) 0.0 x10^3/uL (0.0-0.2) Sodium Level 135 mmol/L (136-145) Potassium Level 4.3 mmol/L (3.5-5.1) Chloride Level 103 mmol/L (98-107) Carbon Dioxide Level 22 mmol/L (21-32) Anion Gap 10 (6-14) Blood Urea Nitrogen 45 mg/dL (7-20) Creatinine 2.0 mg/dL (0.6-1.0) Estimated GFR (Cockcroft-Gault) 30.8 Glucose Level 178 mg/dL (70-99) Calcium Level 8.8 mg/dL (8.5-10.1) Phosphorus Level 2.9 mg/dL (2.6-4.7) Magnesium Level 2.2 mg/dL (1.8-2.4) Albumin 2.1 g/dL (3.4-5.0) Test 12/09/16 11:17 12/09/16 16:05 12/09/16 16:25 12/09/16 16:27 Glucose (Fingerstick) 134 mg/dL (70-99) 57 mg/dL (70-99) 49 mg/dL (70-99) 56 mg/dL (70-99) Test 12/09/16 18:12 12/09/16 21:11 12/10/16 04:40 12/10/16 07:29 Glucose (Fingerstick) 133 mg/dL (70-99) 151 mg/dL (70-99) 143 mg/dL (70-99) White Blood Count 5.9 x10^3/uL (4.0-11.0) Red Blood Count 3.57 x10^6/uL (3.50-5.40) Hemoglobin 9.4 g/dL (12.0-15.5) Hematocrit 29.4 % (36.0-47.0) Mean Corpuscular Volume 82 fL (79-100) Mean Corpuscular Hemoglobin 26 pg (25-35) Mean Corpuscular Hemoglobin Concent 32 g/dL (31-37) Red Cell Distribution Width 17.2 % (11.5-14.5) Platelet Count 206 x10^3/uL (140-400) Neutrophils (%) (Auto) 67 % (31-73) Lymphocytes (%) (Auto) 20 % (24-48) Monocytes (%) (Auto) 12 % (0-9) Eosinophils (%) (Auto) 1 % (0-3) Basophils (%) (Auto) 0 % (0-3) Neutrophils # (Auto) 3.9 x10^3uL (1.8-7.7) Lymphocytes # (Auto) 1.2 x10^3/uL (1.0-4.8) Monocytes # (Auto) 0.7 x10^3/uL (0.0-1.1) Eosinophils # (Auto) 0.1 x10^3/uL (0.0-0.7) Basophils # (Auto) 0.0 x10^3/uL (0.0-0.2) Sodium Level 137 mmol/L (136-145) Potassium Level 4.6 mmol/L (3.5-5.1) Chloride Level 103 mmol/L (98-107) Carbon Dioxide Level 25 mmol/L (21-32) Anion Gap 9 (6-14) Blood Urea Nitrogen 45 mg/dL (7-20) Creatinine 2.1 mg/dL (0.6-1.0) Estimated GFR (Cockcroft-Gault) 29.1 Glucose Level 158 mg/dL (70-99) Calcium Level 8.6 mg/dL (8.5-10.1) Phosphorus Level 3.4 mg/dL (2.6-4.7) Magnesium Level 2.0 mg/dL (1.8-2.4) Albumin 2.2 g/dL (3.4-5.0) Test 12/10/16 10:58 Glucose (Fingerstick) 117 mg/dL (70-99) Laboratory Tests Test 12/09/16 16:05 12/09/16 16:25 12/09/16 16:27 12/09/16 18:12 Glucose (Fingerstick) 57 mg/dL (70-99) 49 mg/dL (70-99) 56 mg/dL (70-99) 133 mg/dL (70-99) Test 12/09/16 21:11 12/10/16 04:40 12/10/16 07:29 12/10/16 10:58 Glucose (Fingerstick) 151 mg/dL (70-99) 143 mg/dL (70-99) 117 mg/dL (70-99) White Blood Count 5.9 x10^3/uL (4.0-11.0) Red Blood Count 3.57 x10^6/uL (3.50-5.40) Hemoglobin 9.4 g/dL (12.0-15.5) Hematocrit 29.4 % (36.0-47.0) Mean Corpuscular Volume 82 fL (79-100) Mean Corpuscular Hemoglobin 26 pg (25-35) Mean Corpuscular Hemoglobin Concent 32 g/dL (31-37) Red Cell Distribution Width 17.2 % (11.5-14.5) Platelet Count 206 x10^3/uL (140-400) Neutrophils (%) (Auto) 67 % (31-73) Lymphocytes (%) (Auto) 20 % (24-48) Monocytes (%) (Auto) 12 % (0-9) Eosinophils (%) (Auto) 1 % (0-3) Basophils (%) (Auto) 0 % (0-3) Neutrophils # (Auto) 3.9 x10^3uL (1.8-7.7) Lymphocytes # (Auto) 1.2 x10^3/uL (1.0-4.8) Monocytes # (Auto) 0.7 x10^3/uL (0.0-1.1) Eosinophils # (Auto) 0.1 x10^3/uL (0.0-0.7) Basophils # (Auto) 0.0 x10^3/uL (0.0-0.2) Sodium Level 137 mmol/L (136-145) Potassium Level 4.6 mmol/L (3.5-5.1) Chloride Level 103 mmol/L (98-107) Carbon Dioxide Level 25 mmol/L (21-32) Anion Gap 9 (6-14) Blood Urea Nitrogen 45 mg/dL (7-20) Creatinine 2.1 mg/dL (0.6-1.0) Estimated GFR (Cockcroft-Gault) 29.1 Glucose Level 158 mg/dL (70-99) Calcium Level 8.6 mg/dL (8.5-10.1) Phosphorus Level 3.4 mg/dL (2.6-4.7) Magnesium Level 2.0 mg/dL (1.8-2.4) Albumin 2.2 g/dL (3.4-5.0) Microbiology 12/07/16 Blood Culture - Final, Complete 12/07/16 Blood Culture Result 1 (TANJA) - Final, Complete 12/07/16 Urine Culture - Final, Complete 12/07/16 Urine Culture Result 1 (TANJA) - Final, Complete 12/07/16 Antimicrobic Susceptibility - Final, Complete Medications Current Medications Sodium Chloride 1,000 ml @ 430 mls/hr Q2H20M IV Last administered on 13:06; Start 12/07/16 at 10:46; Stop 12/07/16 at 16:31; Status DC Ceftriaxone Sodium 50 ml @ 100 mls/hr 1X ONCE IV Last administered on 12:03; Start 12/07/16 at 12:00; Stop 12/07/16 at 12:29; Status DC Ondansetron HCl (Zofran) 4 mg PRN Q8HRS PRN IV NAUSEA/VOMITING; Start 12/07/16 at 13:00; Stop 12/08/16 at 12:59; Status DC Fentanyl Citrate (Fentanyl 2ml Vial) 50 mcg PRN Q2HR PRN IV PAIN; Start at 13:00; Stop 12/08/16 at 12:59; Status DC Sodium Chloride 1,000 ml @ 100 mls/hr Q10H IV Last administered on 12/08/16 08:20; Start 12/07/16 at 12:50; Stop 12/08/16 at 12:33; Status DC Acetaminophen (Tylenol) 650 mg PRN Q4HRS PRN PO FEVER; Start 12/07/16 at 13:00 ; Stop 12/08/16 at 12:59; Status DC Ceftriaxone Sodium 1 gm/ Sodium Chloride 50 ml @ 100 mls/hr Q24H IV ; Start at 13:00; Stop 12/08/16 at 23:24; Status DC Aspirin (Children'S Aspirin) 81 mg DAILY08 PO Last administered on 12/10/16 07 :52; Start 12/07/16 at 16:30 Carvedilol (Coreg) 3.125 mg BIDWMEALS PO Last administered on 12/10/16 07:52; Start 12/07/16 at 17:00 Furosemide (Lasix) 20 mg [id number] PO Last administered on 12/10/16 09:03; Start 12/07/16 at 16:30 Losartan Potassium (Cozaar) 50 mg DAILY PO Last administered on 12/10/16 09:04 ; Start 12/07/16 at 16:30 Darbepoetin Joey (Aranesp) 60 mcg Th SQ Last administered on 12/08/16 21:00; Start 12/08/16 at 21:00 Magnesium Sulfate/ Dextrose 50 ml @ 25 mls/hr PRN DAILY PRN IV for Mag < 1.7 on am labs; Start 12/08/16 at 10:45 Cyanocobalamin (Vitamin B-12) 500 mcg DAILY PO Last administered on 12/10/16 09:04; Start 12/09/16 at 09:00 Cyclobenzaprine HCl (Flexeril) 10 mg QHS PO Last administered on 12/09/16 23: 59; Start 12/08/16 at 22:00 Docusate Sodium (Colace) 100 mg BID PO Last administered on 12/10/16 09:03; Start 12/08/16 at 22:00 Estrogens Conjugated (Premarin) 1 kristal 3X/WEEK VG ; Start 12/09/16 at 09:00 Metformin HCl (Glucophage) 1,000 mg BID PO ; Start 12/09/16 at 09:00; Status UNV Polyethylene Glycol (miraLAX PACKET) 17 gm DAILY PO Last administered on 09:04; Start 12/09/16 at 09:00 Gabapentin (Neurontin) 600 mg TID PO Last administered on 12/09/16 15:17; Start 12/08/16 at 22:00 Insulin Aspart (NovoLOG) 3 units TIDAC SQ Last administered on 12/10/16 11:26 ; Start 12/09/16 at 07:30 Insulin Detemir (Levemir) 25 units QHS SQ Last administered on 12/10/16 00:05 ; Start 12/08/16 at 22:00 Oxybutynin Chloride (Ditropan) 5 mg DAILY PO Last administered on 12/10/16 09: 04; Start 12/09/16 at 09:00 Acetaminophen/ Hydrocodone Bitart (Lortab 5/325) 1 tab PRN Q6HRS PRN PO PAIN Last administered on 12/08/16 22:55; Start 12/08/16 at 21:45 Insulin Aspart (NovoLOG) 0-9 UNITS TIDWMEALS SQ ; Start 12/09/16 at 08:00 Dextrose (Dextrose 50%-Water Syringe) 12.5 gm PRN Q15MIN PRN IV SEE COMMENTS Last administered on 12/09/16 16:57; Start 12/08/16 at 21:45 Trimethoprim/ Sulfamethoxazole (Bactrim Ds) 1 tab [id number] PO Last administered on 12/09/16 06:35; Start 12/09/16 at 07:00; Stop 12/09/16 at 13:33; Status DC Ceftriaxone Sodium 2 gm/ Sodium Chloride 100 ml @ 200 mls/hr Q24H IV Last administered on 12/09/16 15:17; Start 12/09/16 at 14:00 Lidocaine/Sodium Bicarbonate (Buffered Lidocaine 1%) 20 ml STK-MED ONCE IJ ; Start 12/09/16 at 14:19; Stop 12/09/16 at 14:20; Status DC Heparin Sodium/ Sodium Chloride 500 ml @ As Directed STK-MED ONCE .ROUTE ; Start 12/09/16 at 14:19; Stop 12/09/16 at 14:20; Status DC Lidocaine/Sodium Bicarbonate (Buffered Lidocaine 1%) 20 ml 1X ONCE IJ Last administered on 12/09/16 14:32; Start 12/09/16 at 14:30; Stop 12/09/16 at 14:31 ; Status DC Heparin Sodium/ Sodium Chloride 60 unit 1X ONCE IV Last administered on t 14:32; Start 12/09/16 at 14:30; Stop 12/09/16 at 14:31; Status DC Active Scripts Active Miralax (Polyethylene Glycol 3350) 17 Gm Powd.pack 17 Packet PO DAILY Colace (Docusate Sodium) 100 Mg Capsule 1 Cap PO BID [Hydrocodone/Acetaminophen] 1 TAB Tablet 1 Tab PO PRN Q6HRS PRN Reported Losartan Potassium 50 Mg Tablet 50 Mg PO DAILY Furosemide 20 Mg Tablet 20 Mg PO BID Coreg (Carvedilol) 3.125 Mg Tablet 1 Tab PO BID Premarin (Estrogens, Conjugated) 30 Gm Cream.appl 1 Kristal VG 3X/WEEK Cyclobenzaprine Hcl 10 Mg Tablet 1 Tab PO QHS Oxybutynin Chloride Er (Oxybutynin Chloride) 5 Mg Tab.er.24 1 Tab PO DAILY Gabapentin 300 Mg Capsule 600 Mg PO TID Vitamin B-12 (Cyanocobalamin (Vitamin B-12)) 1,000 Mcg Tablet 500 Mcg PO DAILY Lantus Solostar (Insulin Glargine,Hum.rec.anlog) 100 Unit/1 Ml Insuln.pen 25 Unit SQ QHS Novolog (Insulin Aspart) 100 Unit/1 Ml Cartridge 3 Unit SQ TIDAC Aspirin 81 Mg Tab.chew 81 Mg PO Metformin Hcl 500 Mg Tablet 1,000 Mg PO BID Calcium Citrate - Vit D3 Tab (Calcium Citrate/Vitamin D3) 1 Each Tablet 1 Each PO Vitals/I & O Vital Sign - Last 24 Hours 12/09/16 12/09/16 12/09/16 12/09/16 15:00 19:00 20:00 23:00 Temp 97.9 98.5 98.9 97.9 98.5 98.9 Pulse 84 90 90 Resp 20 16 16 B/P (MAP) 119/54 (75) 133/83 (100) 119/66 (83) Pulse Ox 95 90 96 O2 Delivery Nasal Cannula Nasal Cannula Nasal Cannula Nasal Cannula O2 Flow Rate 4.0 2.0 2.0 2.0 12/10/16 12/10/16 12/10/16 12/10/16 03:00 07:00 07:52 08:00 Temp 97.9 97.9 Pulse 82 76 Resp 16 B/P (MAP) 102/65 (77) 116/60 Pulse Ox 96 O2 Delivery Nasal Cannula Nasal Cannula O2 Flow Rate 3.0 2.0 12/10/16 12/10/16 09:04 11:00 Temp 98.5 98.5 Pulse 76 68 Resp 20 B/P (MAP) 116/60 93/63 (73) Pulse Ox 96 O2 Delivery Nasal Cannula O2 Flow Rate 2.0 Intake and Output 12/09/16 12/09/16 12/10/16 15:00 23:00 07:00 Intake Total 600 ml 1600 ml 120 ml Output Total 200 ml Balance 600 ml 1600 ml -80 ml BULMARO HAIRSTON III DO Dec 10, 2016 11:37
--- NOTE | 2016-12-10 11:51 | RAD ---
Ultrasound and fluoro guided power PICC placement Indication: 61-year-old female with Escherichia coli UTI with sepsis. PICC insertion has been requested for long-term IV antibiotics. Fluoro time: 0.1 minutes Kerma-Area Product: 1 Gycm2 Anesthesia: Local only Sterility: All elements of maximal sterile barrier technique, hand hygiene, skin preparation, and, if ultrasound was used, sterile ultrasound technique were followed. Procedure: Informed consent was obtained from the patient. She was placed supine on the angiography table. Preliminary ultrasound examination of right upper arm revealed wide patency of right brachial vein, which was documented with a hard copy ultrasound image. Right upper arm was then prepped and draped in the usual sterile fashion, utilizing all elements of maximal sterile barrier technique, as described above. Using aseptic technique, local anesthesia, direct ultrasound guidance, and the micropuncture system, successful percutaneous entry was achieved into right brachial vein at the level of mid humerus. A 5 [place] dual lumen power PICC was trimmed to 37 cm in length, was inserted through a 5 [place] peel-away sheath, and was easily advanced centrally under fluoroscopic control. Tip of the power PICC was positioned near cavoatrial junction. This was documented with a single fluoroscopic spot image. The PICC was then demonstrated to flush and aspirate normally, and was secured at the skin exit site utilizing suture and sterile dressing. The patient tolerated the procedure well without apparent complication. Impression: Successful, uneventful ultrasound and fluoro guided placement of right brachial vein 5 [place] dual-lumen 37 cm power PICC, as described.
--- NOTE | 2016-12-10 13:22 | PDOC ---
SUBJECTIVE ROS CKD IV Doign same overall CVS: no Orthopnea, no CP RESP: no SOB, no PHILLIPS GI: no Nausea, no Vomiting : n Dysuria, on Urgency OBJECTIVE Vital Signs Vital Signs Date Time Temp Pulse Resp B/P (MAP) Pulse Ox O2 Delivery O2 Flow Rate FiO2 12/10/16 11:00 98.5 68 20 93/63 (73) 96 Nasal Cannula 2.0 98.5 I & 0 Intake and Output 12/10/16 07:00 Intake Total 2320 ml Output Total 200 ml Balance 2120 ml Intake Oral 2320 ml Output Urine Total 200 ml # Voids 4 PHYSICAL EXAM Physical Exam General Appearance: Awake Alert Oriented x 3 In no Distress Eyes: ? dec VIsion Conjunctiva Normal EN: No EN Drainage Mucous Memb. moist Neck: no JVD no JVP Supple no Thyromegaly CVS: S1 S2 ? Murmur No Gallop No Rub no Edema Resp: no Rales no Rhonchi no Acc. Muscle use GI: BAS +ve NO Bruit Non Tender Non Distended : no CVA tenderness; no Suprapubic Tenderness Assessment & Plan CKD III (cr Cl of 37 in the past) - HTNSive + Dm /NS + CHF. Renal function remains stable for now. Current FLuid and E-lyte status does not necessitate emergent need for Dialysis. Will re-evaluate for Dialysis in am, Anemia: start Epogen Transfuse as needed. HypoTN: Currently asymptomatic. BP meds reviewed. See orders for changes. ? NSTEMI - IVF and NAC for LHC if/ when planned Possible UTI/ cystitis with Sepsis - E. Coli as noted on cx report - With min hematirua - Abx per ID CHF - EF 20% as ntoed - may be contributing to CKD and current Lowish BP also Discussed Plan of Care and prognosis etc. at length with pt COMMENT/RELEVANT DATA Meds Current Medications Medications (Trade) Dose Ordered Sig/Wilfrid Start Time Stop Time Status Last Admin Dose Admin Acetaminophen (Tylenol) 650 mg PRN Q4HRS PRN 12/07/16 13:00 12/08/16 12:59 DC Acetaminophen/ Hydrocodone Bitart (Lortab 5/325) 1 tab PRN Q6HRS PRN 12/08/16 21:45 12/08/16 22:55 1 TAB Aspirin (Children'S Aspirin) 81 mg DAILY08 12/07/16 16:30 12/10/16 07:52 81 MG Carvedilol (Coreg) 3.125 mg BIDWMEALS 12/07/16 17:00 12/10/16 07:52 3.125 MG Ceftriaxone Sodium 1 gm/ Sodium Chloride 50 ml @ 100 mls/hr Q24H 12/08/16 13:00 12/08/16 23:24 DC Ceftriaxone Sodium 2 gm/ Sodium Chloride 100 ml @ 200 mls/hr Q24H 12/09/16 14:00 12/09/16 15:17 200 MLS/HR Ceftriaxone Sodium 50 ml @ 100 mls/hr 1X ONCE 12/07/16 12:00 12/07/16 12:29 DC 12/07/16 12:03 100 MLS/HR Cyanocobalamin (Vitamin B-12) 500 mcg DAILY 12/09/16 09:00 12/10/16 09:04 500 MCG Cyclobenzaprine HCl (Flexeril) 10 mg QHS 12/08/16 22:00 12/09/16 23:59 10 MG Darbepoetin Joey (Aranesp) 60 mcg Th 12/08/16 21:00 12/08/16 21:00 60 MCG Dextrose (Dextrose 50%-Water Syringe) 12.5 gm PRN Q15MIN PRN 12/08/16 21:45 12/09/16 16:57 12.5 GM Docusate Sodium (Colace) 100 mg BID 12/08/16 22:00 12/10/16 09:03 100 MG Estrogens Conjugated (Premarin) 1 nelson 3X/WEEK 12/09/16 09:00 Fentanyl Citrate (Fentanyl 2ml Vial) 50 mcg PRN Q2HR PRN 12/07/16 13:00 12/08/16 12:59 DC Furosemide (Lasix) 20 mg BID94 12/07/16 16:30 12/10/16 09:03 20 MG Gabapentin (Neurontin) 600 mg TID 12/08/16 22:00 12/09/16 15:17 600 MG Heparin Sodium/ Sodium Chloride 60 unit 1X ONCE 12/09/16 14:30 12/09/16 14:31 DC 12/09/16 14:32 60 UNIT Insulin Aspart (NovoLOG) 0-9 UNITS TIDWMEALS 12/09/16 08:00 Insulin Detemir (Levemir) 25 units QHS 12/08/16 22:00 12/10/16 00:05 12 UNITS Lidocaine/Sodium Bicarbonate (Buffered Lidocaine 1%) 20 ml 1X ONCE 12/09/16 14:30 12/09/16 14:31 DC 12/09/16 14:32 20 ML Losartan Potassium (Cozaar) 50 mg DAILY 12/07/16 16:30 12/10/16 09:04 50 MG Magnesium Sulfate/ Dextrose 50 ml @ 25 mls/hr PRN DAILY PRN 12/08/16 10:45 Metformin HCl (Glucophage) 1,000 mg BID 12/09/16 09:00 UNV Ondansetron HCl (Zofran) 4 mg PRN Q8HRS PRN 12/07/16 13:00 12/08/16 12:59 DC Oxybutynin Chloride (Ditropan) 5 mg DAILY 12/09/16 09:00 12/10/16 09:04 5 MG Polyethylene Glycol (miraLAX PACKET) 17 gm DAILY 12/09/16 09:00 12/10/16 09:04 17 GM Sodium Chloride 1,000 ml @ 100 mls/hr Q10H 12/07/16 12:50 12/08/16 12:33 DC 12/08/16 08:20 100 MLS/HR Trimethoprim/ Sulfamethoxazole (Bactrim Ds) 1 tab BID76 12/09/16 07:00 12/09/16 13:33 DC 12/09/16 06:35 1 TAB Lab Laboratory Tests Test 12/09/16 16:05 12/09/16 16:25 12/09/16 16:27 12/09/16 18:12 Glucose (Fingerstick) 57 mg/dL (70-99) 49 mg/dL (70-99) 56 mg/dL (70-99) 133 mg/dL (70-99) Test 12/09/16 21:11 12/10/16 04:40 12/10/16 07:29 12/10/16 10:58 Glucose (Fingerstick) 151 mg/dL (70-99) 143 mg/dL (70-99) 117 mg/dL (70-99) White Blood Count 5.9 x10^3/uL (4.0-11.0) Red Blood Count 3.57 x10^6/uL (3.50-5.40) Hemoglobin 9.4 g/dL (12.0-15.5) Hematocrit 29.4 % (36.0-47.0) Mean Corpuscular Volume 82 fL (79-100) Mean Corpuscular Hemoglobin 26 pg (25-35) Mean Corpuscular Hemoglobin Concent 32 g/dL (31-37) Red Cell Distribution Width 17.2 % (11.5-14.5) Platelet Count 206 x10^3/uL (140-400) Neutrophils (%) (Auto) 67 % (31-73) Lymphocytes (%) (Auto) 20 % (24-48) Monocytes (%) (Auto) 12 % (0-9) Eosinophils (%) (Auto) 1 % (0-3) Basophils (%) (Auto) 0 % (0-3) Neutrophils # (Auto) 3.9 x10^3uL (1.8-7.7) Lymphocytes # (Auto) 1.2 x10^3/uL (1.0-4.8) Monocytes # (Auto) 0.7 x10^3/uL (0.0-1.1) Eosinophils # (Auto) 0.1 x10^3/uL (0.0-0.7) Basophils # (Auto) 0.0 x10^3/uL (0.0-0.2) Sodium Level 137 mmol/L (136-145) Potassium Level 4.6 mmol/L (3.5-5.1) Chloride Level 103 mmol/L (98-107) Carbon Dioxide Level 25 mmol/L (21-32) Anion Gap 9 (6-14) Blood Urea Nitrogen 45 mg/dL (7-20) Creatinine 2.1 mg/dL (0.6-1.0) Estimated GFR (Cockcroft-Gault) 29.1 Glucose Level 158 mg/dL (70-99) Calcium Level 8.6 mg/dL (8.5-10.1) Phosphorus Level 3.4 mg/dL (2.6-4.7) Magnesium Level 2.0 mg/dL (1.8-2.4) Albumin 2.2 g/dL (3.4-5.0) INGRID LOMBARDI MD Dec 10, 2016 13:22
[2016-12-10 15:00] VITALS: BP 101/62
[2016-12-10] MEDS: DEXTROSE 50% 25 GM / 50ML DISP.SYRIN. IV PRN (16:14)
[2016-12-10 19:00] VITALS: BP 123/74
[2016-12-10] MEDS: CYCLOBENZAPRINE 10 MG TABLET. PO SCH (20:44)
[2016-12-10 23:00] VITALS: BP 118/53
[2016-12-11 03:00] VITALS: BP 109/69
[2016-12-11] MEDS: HYDROcodone/APAP 5/325MG 1 TAB TABLET PO PRN (03:02)
[2016-12-11 04:46] LABS: BASO % 1 % (0-3); EOS % 2 % (0-3); HEMATOCRIT 27.1 % (36.0-47.0); HEMOGLOBIN 8.7 g/dL (12.0-15.5); LYMPH % 20 % (24-48); MEAN CORPUSCULAR HEMOGLOBIN 27 pg (25-35); MEAN CORPUSCULAR HGB CONC 32 g/dL (31-37); MEAN CORPUSCULAR VOLUME 83 fL (79-100); MONO % 12 % (0-9); NEUT % 65 % (31-73); PLATELET COUNT 171 x10^3/uL (140-400); RED BLOOD COUNT 3.28 x10^6/uL (3.50-5.40); WHITE BLOOD COUNT 5.2 x10^3/uL (4.0-11.0)
[2016-12-11 04:58] LABS: CALCIUM 8.5 mg/dL (8.5-10.1); CREATININE 2.3 mg/dL (0.6-1.0); GFR 26.2; PHOSPHORUS 3.4 mg/dL (2.6-4.7); POTASSIUM 4.3 mmol/L (3.5-5.1)
[2016-12-11 07:00] VITALS: BP 109/59
[2016-12-11] MEDS: CARVEDILOL 3.125 MG TABLET. PO SCH ×2 (08:38→16:50)
[2016-12-11] MEDS: CYANOCOBALAMIN (VITAMIN B-12) 1,000 MCG TABLET. PO SCH (08:39)
[2016-12-11] MEDS: GABAPENTIN 300 MG CAPSULE. PO SCH ×3 (08:39→21:07)
[2016-12-11] MEDS: FUROSEMIDE 20 MG TABLET PO SCH (08:39)
[2016-12-11] MEDS: LOSARTAN POTASSIUM 25 MG TABLET. PO SCH (08:39)
[2016-12-11] MEDS: DOCUSATE SODIUM 100 MG CAPSULE. PO SCH ×2 (08:39→21:07)
[2016-12-11] MEDS: OXYBUTYNIN CHLORIDE 5 MG TABLET PO SCH (08:40)
[2016-12-11] MEDS: POLYETHYLENE GLYCOL 3350 17 GM PACKET. PO SCH (08:40)
[2016-12-11] MEDS: ASPIRIN CHEWABLE 81 MG TABLET. PO SCH (08:40)
[2016-12-11] MEDS: INSULIN ASPART 300 UNITS/3 ML INSULN.PEN SQ SCH ×6 (08:48→16:50)
--- NOTE | 2016-12-11 09:23 | PDOC ---
SUBJECTIVE ROS CK DIII/ IV not feeling too good CVS: no Orthopnea, no CP RESP: no SOB, no PHILLIPS GI: no Nausea, no Vomiting : no Dysuria, no Urgency OBJECTIVE Vital Signs Vital Signs Date Time Temp Pulse Resp B/P (MAP) Pulse Ox O2 Delivery O2 Flow Rate FiO2 12/11/16 08:39 102 109/59 12/11/16 07:00 98.5 16 97 Nasal Cannula 4.0 98.5 I & 0 Intake and Output 12/11/16 07:00 Intake Total 1970 ml Output Total 300 ml Balance 1670 ml Intake Oral 1970 ml Output Urine Total 300 ml # Voids 4 PHYSICAL EXAM Physical Exam General Appearance: Awake Alert Oriented x 3 In no Distress Eyes: dec VIsion Conjunctiva Normal EN: No EN Drainage Mucous Memb. moist Neck: no JVD no JVP Supple no Thyromegaly CVS: S1 S2 ? Murmur No Gallop No Rub no Edema Resp: no Rales no Rhonchi no Acc. Muscle use GI: BS +ve NO Bruit Non Tender Non Distended : no CVA tenderness; no Suprapubic Tenderness Assessment & Plan ASHLEY - Uo is marginal. Suspect due to AIN from Pyelo. Would like to hold off on Rgullon, Gentle IVF in setting of severe Cmyopahty CKD III (cr Cl of 37 in the past) - HTNSive + Dm /NS + CHF. Renal function remains stable for now. Current FLuid and E-lyte status does not necessitate emergent need for Dialysis. Will re-evaluate for Dialysis in am, Anemia: start Epogen Transfuse as needed. HypoTN: resolved with decreasing BP Meds. UTI/ cystitis with Sepsis/ Pyelonephritis - E. Coli as noted on cx report - With min hematirua - Abx per ID CHF - EF 20% as ntoed - may be contributing to CKD and current Lowish BP also constipation - Laxative as ordered Discussed Plan of Care and prognosis etc. at length with pt COMMENT/RELEVANT DATA Meds Current Medications Medications (Trade) Dose Ordered Sig/Wilfrid Start Time Stop Time Status Last Admin Dose Admin Acetaminophen (Tylenol) 650 mg PRN Q4HRS PRN 12/07/16 13:00 12/08/16 12:59 DC Acetaminophen/ Hydrocodone Bitart (Lortab 5/325) 1 tab PRN Q6HRS PRN 12/08/16 21:45 12/11/16 03:02 1 TAB Aspirin (Children'S Aspirin) 81 mg DAILY08 12/07/16 16:30 12/11/16 08:40 81 MG Carvedilol (Coreg) 3.125 mg BIDWMEALS 12/07/16 17:00 12/11/16 08:38 3.125 MG Ceftriaxone Sodium 1 gm/ Sodium Chloride 50 ml @ 100 mls/hr Q24H 12/08/16 13:00 12/08/16 23:24 DC Ceftriaxone Sodium 2 gm/ Sodium Chloride 100 ml @ 200 mls/hr Q24H 12/09/16 14:00 12/10/16 13:31 200 MLS/HR Ceftriaxone Sodium 50 ml @ 100 mls/hr 1X ONCE 12/07/16 12:00 12/07/16 12:29 DC 12/07/16 12:03 100 MLS/HR Cyanocobalamin (Vitamin B-12) 500 mcg DAILY 12/09/16 09:00 12/11/16 08:39 500 MCG Cyclobenzaprine HCl (Flexeril) 10 mg QHS 12/08/16 22:00 12/10/16 20:44 10 MG Darbepoetin Joey (Aranesp) 60 mcg Th 12/08/16 21:00 12/08/16 21:00 60 MCG Dextrose (Dextrose 50%-Water Syringe) 12.5 gm PRN Q15MIN PRN 12/08/16 21:45 12/10/16 16:14 12.5 GM Docusate Sodium (Colace) 100 mg BID 12/08/16 22:00 12/11/16 08:39 100 MG Estrogens Conjugated (Premarin) 1 nelson 3X/WEEK 12/09/16 09:00 Fentanyl Citrate (Fentanyl 2ml Vial) 50 mcg PRN Q2HR PRN 12/07/16 13:00 12/08/16 12:59 DC Furosemide (Lasix) 20 mg BID94 12/07/16 16:30 12/11/16 08:39 20 MG Gabapentin (Neurontin) 600 mg TID 12/08/16 22:00 12/09/16 15:17 600 MG Heparin Sodium/ Sodium Chloride 60 unit 1X ONCE 12/09/16 14:30 12/09/16 14:31 DC 12/09/16 14:32 60 UNIT Insulin Aspart (NovoLOG) 1 units TIDAC 12/11/16 07:30 12/11/16 08:48 1 UNITS Insulin Detemir (Levemir) 6 units QHS 12/10/16 21:00 12/10/16 21:42 6 UNITS Lidocaine/Sodium Bicarbonate (Buffered Lidocaine 1%) 20 ml 1X ONCE 12/09/16 14:30 12/09/16 14:31 DC 12/09/16 14:32 20 ML Losartan Potassium (Cozaar) 25 mg DAILY 12/11/16 09:00 12/11/16 08:39 25 MG Magnesium Sulfate/ Dextrose 50 ml @ 25 mls/hr PRN DAILY PRN 12/08/16 10:45 Metformin HCl (Glucophage) 1,000 mg BID 12/09/16 09:00 UNV Ondansetron HCl (Zofran) 4 mg PRN Q8HRS PRN 12/07/16 13:00 12/08/16 12:59 DC Oxybutynin Chloride (Ditropan) 5 mg DAILY 12/09/16 09:00 12/11/16 08:40 5 MG Polyethylene Glycol (miraLAX PACKET) 17 gm DAILY 12/09/16 09:00 12/11/16 08:40 17 GM Sodium Chloride 1,000 ml @ 100 mls/hr Q10H 12/07/16 12:50 12/08/16 12:33 DC 12/08/16 08:20 100 MLS/HR Trimethoprim/ Sulfamethoxazole (Bactrim Ds) 1 tab [id number] 12/09/16 07:00 12/09/16 13:33 DC 12/09/16 06:35 1 TAB Lab Laboratory Tests Test 12/10/16 10:58 12/10/16 16:12 12/10/16 16:25 12/10/16 21:22 Glucose (Fingerstick) 117 mg/dL (70-99) 22 mg/dL (70-99) 95 mg/dL (70-99) 192 mg/dL (70-99) Test 12/11/16 04:40 12/11/16 07:21 White Blood Count 5.2 x10^3/uL (4.0-11.0) Red Blood Count 3.28 x10^6/uL (3.50-5.40) Hemoglobin 8.7 g/dL (12.0-15.5) Hematocrit 27.1 % (36.0-47.0) Mean Corpuscular Volume 83 fL (79-100) Mean Corpuscular Hemoglobin 27 pg (25-35) Mean Corpuscular Hemoglobin Concent 32 g/dL (31-37) Red Cell Distribution Width 17.0 % (11.5-14.5) Platelet Count 171 x10^3/uL (140-400) Neutrophils (%) (Auto) 65 % (31-73) Lymphocytes (%) (Auto) 20 % (24-48) Monocytes (%) (Auto) 12 % (0-9) Eosinophils (%) (Auto) 2 % (0-3) Basophils (%) (Auto) 1 % (0-3) Neutrophils # (Auto) 3.4 x10^3uL (1.8-7.7) Lymphocytes # (Auto) 1.0 x10^3/uL (1.0-4.8) Monocytes # (Auto) 0.6 x10^3/uL (0.0-1.1) Eosinophils # (Auto) 0.1 x10^3/uL (0.0-0.7) Basophils # (Auto) 0.0 x10^3/uL (0.0-0.2) Sodium Level 133 mmol/L (136-145) Potassium Level 4.3 mmol/L (3.5-5.1) Chloride Level 102 mmol/L (98-107) Carbon Dioxide Level 25 mmol/L (21-32) Anion Gap 6 (6-14) Blood Urea Nitrogen 47 mg/dL (7-20) Creatinine 2.3 mg/dL (0.6-1.0) Estimated GFR (Cockcroft-Gault) 26.2 Glucose Level 240 mg/dL (70-99) Calcium Level 8.5 mg/dL (8.5-10.1) Phosphorus Level 3.4 mg/dL (2.6-4.7) Magnesium Level 2.0 mg/dL (1.8-2.4) Albumin 2.0 g/dL (3.4-5.0) Glucose (Fingerstick) 226 mg/dL (70-99) INGRID LOMBARDI MD Dec 11, 2016 09:23
[2016-12-11] MEDS ORDERED: POLYETHYLENE GLYCOL 3350 17 GM PACKET. PO PRN (09:30)
[2016-12-11] MEDS ORDERED: MAGNESIUM SULFATE 2GM 50 ML IV PRN (09:30)
[2016-12-11] MEDS ORDERED: POLYETHYLENE GLYCOL 3350 17 GM PACKET. PO ONE (09:30)
--- NOTE | 2016-12-11 10:08 | PDOC ---
Infectious Disease Note Subjective Subjective Not feeling well this morning, c/o right shoulder and neck pain last night, relieved with pain med ROS ROS GEN: Denies fevers, chills, sweats CV: Denies chest pain RESP: Denies shortness of air, cough GI: Denies n/v/d NEURO: Denies confusion, dizziness Vital Sign Vital Signs Vital Signs Date Time Temp Pulse Resp B/P (MAP) Pulse Ox O2 Delivery O2 Flow Rate FiO2 12/11/16 08:39 102 109/59 12/11/16 07:00 98.5 16 97 Nasal Cannula 4.0 98.5 Physical Exam PHYSICAL EXAM GENERAL: Propped up in bed, NAD HEENT: Oral mucosa is pink NECK: Supple. LUNGS: Clear to auscultation. HEART: Normal S1, S2. ABDOMEN: Obese, bowel sounds present, soft, nontender. EXTREMITIES: No gross edema or cyanosis. GUILLERMO hose on. Previous toe amp unremarkable SKIN: Without rash. Warm to touch. NEUROLOGIC: Alert and oriented x 3. RUE-PICC. (12/09). clean Labs Lab Laboratory Tests Test 12/10/16 10:58 12/10/16 16:12 12/10/16 16:25 12/10/16 21:22 Glucose (Fingerstick) 117 mg/dL (70-99) 22 mg/dL (70-99) 95 mg/dL (70-99) 192 mg/dL (70-99) Test 12/11/16 04:40 12/11/16 07:21 White Blood Count 5.2 x10^3/uL (4.0-11.0) Red Blood Count 3.28 x10^6/uL (3.50-5.40) Hemoglobin 8.7 g/dL (12.0-15.5) Hematocrit 27.1 % (36.0-47.0) Mean Corpuscular Volume 83 fL (79-100) Mean Corpuscular Hemoglobin 27 pg (25-35) Mean Corpuscular Hemoglobin Concent 32 g/dL (31-37) Red Cell Distribution Width 17.0 % (11.5-14.5) Platelet Count 171 x10^3/uL (140-400) Neutrophils (%) (Auto) 65 % (31-73) Lymphocytes (%) (Auto) 20 % (24-48) Monocytes (%) (Auto) 12 % (0-9) Eosinophils (%) (Auto) 2 % (0-3) Basophils (%) (Auto) 1 % (0-3) Neutrophils # (Auto) 3.4 x10^3uL (1.8-7.7) Lymphocytes # (Auto) 1.0 x10^3/uL (1.0-4.8) Monocytes # (Auto) 0.6 x10^3/uL (0.0-1.1) Eosinophils # (Auto) 0.1 x10^3/uL (0.0-0.7) Basophils # (Auto) 0.0 x10^3/uL (0.0-0.2) Sodium Level 133 mmol/L (136-145) Potassium Level 4.3 mmol/L (3.5-5.1) Chloride Level 102 mmol/L (98-107) Carbon Dioxide Level 25 mmol/L (21-32) Anion Gap 6 (6-14) Blood Urea Nitrogen 47 mg/dL (7-20) Creatinine 2.3 mg/dL (0.6-1.0) Estimated GFR (Cockcroft-Gault) 26.2 Glucose Level 240 mg/dL (70-99) Calcium Level 8.5 mg/dL (8.5-10.1) Phosphorus Level 3.4 mg/dL (2.6-4.7) Magnesium Level 2.0 mg/dL (1.8-2.4) Albumin 2.0 g/dL (3.4-5.0) Glucose (Fingerstick) 226 mg/dL (70-99) Micro BLD CULT RESULT 1 Final Escherichia coli URINE CULTURE RES 1 Final Escherichia coli Antibiotic RSLT#1 Amoxicillin/Clavulanic Acid S Ampicillin S Cefepime S Ceftriaxone S Cefuroxime S Cephalothin S Ciprofloxacin S Ertapenem S Gentamicin S Imipenem S Levofloxacin S Nitrofurantoin S Piperacillin S Tetracycline S Tobramycin S Trimethoprim/Sulfa S Objective Assessment E. coli sepsis, POA. (12/07) E. coli UTI, POA Cipro allergy, unknown reaction CKD Diabetes Chronic systolic heart failure Recent left 2nd toe infection s/p partial amputation, healed. h/o MRSA Recent h/o NSTEMI Neck pain for 2 weeks Plan Plan of Care Cont Rocephin Monitor WBC, Cr and temp CT neck D/w RN, ? cardiology follow-up D/w Attending Co-Sign Attending Co-Sign The patient was seen and interviewed as well as examined at the bedside. The chart was reviewed. The case was discussed. Agree with the plan of care. SAJI DUGAN APRN Dec 11, 2016 10:08 CHELI GROSSMAN MD Dec 11, 2016 15:35
[2016-12-11 11:03] VITALS: BP 102/56
--- NOTE | 2016-12-11 13:29 | PDOC ---
PROGRESS NOTES Chief Complaint Chief Complaint Urinary tract infection Sepsis E Coli bacteremia History of Present Illness History of Present Illness Tired, no other c/o Up in chair On IV caprice Clemente RN Vitals Vitals Vital Signs Date Time Temp Pulse Resp B/P (MAP) Pulse Ox O2 Delivery O2 Flow Rate FiO2 12/11/16 11:03 97.5 75 17 102/56 (71) 96 Nasal Cannula 4.0 97.5 Physical Exam General: Alert, Oriented X3, Cooperative, No acute distress Heart: Regular rate, Other (3/6 systolic murmur ) Lungs: Clear, Other Abdomen: Soft, No tenderness Extremities: No clubbing, No edema, Normal pulses Skin: No rashes, No breakdown, No significant lesion Labs LABS Laboratory Tests Test 12/10/16 16:12 12/10/16 16:25 12/10/16 21:22 12/11/16 04:40 Glucose (Fingerstick) 22 mg/dL (70-99) 95 mg/dL (70-99) 192 mg/dL (70-99) White Blood Count 5.2 x10^3/uL (4.0-11.0) Red Blood Count 3.28 x10^6/uL (3.50-5.40) Hemoglobin 8.7 g/dL (12.0-15.5) Hematocrit 27.1 % (36.0-47.0) Mean Corpuscular Volume 83 fL (79-100) Mean Corpuscular Hemoglobin 27 pg (25-35) Mean Corpuscular Hemoglobin Concent 32 g/dL (31-37) Red Cell Distribution Width 17.0 % (11.5-14.5) Platelet Count 171 x10^3/uL (140-400) Neutrophils (%) (Auto) 65 % (31-73) Lymphocytes (%) (Auto) 20 % (24-48) Monocytes (%) (Auto) 12 % (0-9) Eosinophils (%) (Auto) 2 % (0-3) Basophils (%) (Auto) 1 % (0-3) Neutrophils # (Auto) 3.4 x10^3uL (1.8-7.7) Lymphocytes # (Auto) 1.0 x10^3/uL (1.0-4.8) Monocytes # (Auto) 0.6 x10^3/uL (0.0-1.1) Eosinophils # (Auto) 0.1 x10^3/uL (0.0-0.7) Basophils # (Auto) 0.0 x10^3/uL (0.0-0.2) Sodium Level 133 mmol/L (136-145) Potassium Level 4.3 mmol/L (3.5-5.1) Chloride Level 102 mmol/L (98-107) Carbon Dioxide Level 25 mmol/L (21-32) Anion Gap 6 (6-14) Blood Urea Nitrogen 47 mg/dL (7-20) Creatinine 2.3 mg/dL (0.6-1.0) Estimated GFR (Cockcroft-Gault) 26.2 Glucose Level 240 mg/dL (70-99) Calcium Level 8.5 mg/dL (8.5-10.1) Phosphorus Level 3.4 mg/dL (2.6-4.7) Magnesium Level 2.0 mg/dL (1.8-2.4) Albumin 2.0 g/dL (3.4-5.0) Test 12/11/16 07:21 12/11/16 11:20 Glucose (Fingerstick) 226 mg/dL (70-99) 151 mg/dL (70-99) Review of Systems Review of Systems co weakness co boredom Assessment and Plan Assessmemt and Plan Problems Medical Problems: (1) Elevated troponin Status: Acute (2) Renal insufficiency Status: Acute (3) Sepsis Status: Acute (4) Urinary tract infection Status: Acute ASSESSMENT AND PLAN: 1. Sepsis: E.coli in urine, GNR in blood (prelim report), most likely same. apreciate ID input 1. UTI: pansensitive E.coli. ceftriax D#2 2. 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 monitor 3. Troponin leak: stable in .5-.6 range; suspect chronic with CHF and CKD. cardiologyrec to resume [facility] upon discharge with repeat echo in 2-3 months; F/U w/ Dr Chavez as perviously scheduled 4. CHF: chronic systolic (EF 20%). stop IVF 5. HTN: borderline low. appreciate Dr Mustafa's help w/ med management 6. Anemia: normocytic; 2/2 CKD. on EPO 7. Hypoalbuminemia: mod-severe. multiofactorial, with proteinuria (CKD), inflammation (CHF), malnutrition. nepro supplements 8. Dispo: await final blood cult. ID rec.s re jury consultant Abx 9. ? dc in am? Problems: Comment Review of Relevant I have reviewed the following items bro (where applicable) has been applied. Labs Laboratory Tests Test 12/09/16 16:05 12/09/16 16:25 12/09/16 16:27 12/09/16 18:12 Glucose (Fingerstick) 57 mg/dL (70-99) 49 mg/dL (70-99) 56 mg/dL (70-99) 133 mg/dL (70-99) Test 12/09/16 21:11 12/10/16 04:40 12/10/16 07:29 12/10/16 10:58 Glucose (Fingerstick) 151 mg/dL (70-99) 143 mg/dL (70-99) 117 mg/dL (70-99) White Blood Count 5.9 x10^3/uL (4.0-11.0) Red Blood Count 3.57 x10^6/uL (3.50-5.40) Hemoglobin 9.4 g/dL (12.0-15.5) Hematocrit 29.4 % (36.0-47.0) Mean Corpuscular Volume 82 fL (79-100) Mean Corpuscular Hemoglobin 26 pg (25-35) Mean Corpuscular Hemoglobin Concent 32 g/dL (31-37) Red Cell Distribution Width 17.2 % (11.5-14.5) Platelet Count 206 x10^3/uL (140-400) Neutrophils (%) (Auto) 67 % (31-73) Lymphocytes (%) (Auto) 20 % (24-48) Monocytes (%) (Auto) 12 % (0-9) Eosinophils (%) (Auto) 1 % (0-3) Basophils (%) (Auto) 0 % (0-3) Neutrophils # (Auto) 3.9 x10^3uL (1.8-7.7) Lymphocytes # (Auto) 1.2 x10^3/uL (1.0-4.8) Monocytes # (Auto) 0.7 x10^3/uL (0.0-1.1) Eosinophils # (Auto) 0.1 x10^3/uL (0.0-0.7) Basophils # (Auto) 0.0 x10^3/uL (0.0-0.2) Sodium Level 137 mmol/L (136-145) Potassium Level 4.6 mmol/L (3.5-5.1) Chloride Level 103 mmol/L (98-107) Carbon Dioxide Level 25 mmol/L (21-32) Anion Gap 9 (6-14) Blood Urea Nitrogen 45 mg/dL (7-20) Creatinine 2.1 mg/dL (0.6-1.0) Estimated GFR (Cockcroft-Gault) 29.1 Glucose Level 158 mg/dL (70-99) Calcium Level 8.6 mg/dL (8.5-10.1) Phosphorus Level 3.4 mg/dL (2.6-4.7) Magnesium Level 2.0 mg/dL (1.8-2.4) Albumin 2.2 g/dL (3.4-5.0) Test 12/10/16 16:12 12/10/16 16:25 12/10/16 21:22 12/11/16 04:40 Glucose (Fingerstick) 22 mg/dL (70-99) 95 mg/dL (70-99) 192 mg/dL (70-99) White Blood Count 5.2 x10^3/uL (4.0-11.0) Red Blood Count 3.28 x10^6/uL (3.50-5.40) Hemoglobin 8.7 g/dL (12.0-15.5) Hematocrit 27.1 % (36.0-47.0) Mean Corpuscular Volume 83 fL (79-100) Mean Corpuscular Hemoglobin 27 pg (25-35) Mean Corpuscular Hemoglobin Concent 32 g/dL (31-37) Red Cell Distribution Width 17.0 % (11.5-14.5) Platelet Count 171 x10^3/uL (140-400) Neutrophils (%) (Auto) 65 % (31-73) Lymphocytes (%) (Auto) 20 % (24-48) Monocytes (%) (Auto) 12 % (0-9) Eosinophils (%) (Auto) 2 % (0-3) Basophils (%) (Auto) 1 % (0-3) Neutrophils # (Auto) 3.4 x10^3uL (1.8-7.7) Lymphocytes # (Auto) 1.0 x10^3/uL (1.0-4.8) Monocytes # (Auto) 0.6 x10^3/uL (0.0-1.1) Eosinophils # (Auto) 0.1 x10^3/uL (0.0-0.7) Basophils # (Auto) 0.0 x10^3/uL (0.0-0.2) Sodium Level 133 mmol/L (136-145) Potassium Level 4.3 mmol/L (3.5-5.1) Chloride Level 102 mmol/L (98-107) Carbon Dioxide Level 25 mmol/L (21-32) Anion Gap 6 (6-14) Blood Urea Nitrogen 47 mg/dL (7-20) Creatinine 2.3 mg/dL (0.6-1.0) Estimated GFR (Cockcroft-Gault) 26.2 Glucose Level 240 mg/dL (70-99) Calcium Level 8.5 mg/dL (8.5-10.1) Phosphorus Level 3.4 mg/dL (2.6-4.7) Magnesium Level 2.0 mg/dL (1.8-2.4) Albumin 2.0 g/dL (3.4-5.0) Test 12/11/16 07:21 12/11/16 11:20 Glucose (Fingerstick) 226 mg/dL (70-99) 151 mg/dL (70-99) Laboratory Tests Test 12/10/16 16:12 12/10/16 16:25 12/10/16 21:22 12/11/16 04:40 Glucose (Fingerstick) 22 mg/dL (70-99) 95 mg/dL (70-99) 192 mg/dL (70-99) White Blood Count 5.2 x10^3/uL (4.0-11.0) Red Blood Count 3.28 x10^6/uL (3.50-5.40) Hemoglobin 8.7 g/dL (12.0-15.5) Hematocrit 27.1 % (36.0-47.0) Mean Corpuscular Volume 83 fL (79-100) Mean Corpuscular Hemoglobin 27 pg (25-35) Mean Corpuscular Hemoglobin Concent 32 g/dL (31-37) Red Cell Distribution Width 17.0 % (11.5-14.5) Platelet Count 171 x10^3/uL (140-400) Neutrophils (%) (Auto) 65 % (31-73) Lymphocytes (%) (Auto) 20 % (24-48) Monocytes (%) (Auto) 12 % (0-9) Eosinophils (%) (Auto) 2 % (0-3) Basophils (%) (Auto) 1 % (0-3) Neutrophils # (Auto) 3.4 x10^3uL (1.8-7.7) Lymphocytes # (Auto) 1.0 x10^3/uL (1.0-4.8) Monocytes # (Auto) 0.6 x10^3/uL (0.0-1.1) Eosinophils # (Auto) 0.1 x10^3/uL (0.0-0.7) Basophils # (Auto) 0.0 x10^3/uL (0.0-0.2) Sodium Level 133 mmol/L (136-145) Potassium Level 4.3 mmol/L (3.5-5.1) Chloride Level 102 mmol/L (98-107) Carbon Dioxide Level 25 mmol/L (21-32) Anion Gap 6 (6-14) Blood Urea Nitrogen 47 mg/dL (7-20) Creatinine 2.3 mg/dL (0.6-1.0) Estimated GFR (Cockcroft-Gault) 26.2 Glucose Level 240 mg/dL (70-99) Calcium Level 8.5 mg/dL (8.5-10.1) Phosphorus Level 3.4 mg/dL (2.6-4.7) Magnesium Level 2.0 mg/dL (1.8-2.4) Albumin 2.0 g/dL (3.4-5.0) Test 12/11/16 07:21 12/11/16 11:20 Glucose (Fingerstick) 226 mg/dL (70-99) 151 mg/dL (70-99) Microbiology 12/07/16 Blood Culture - Final, Complete 12/07/16 Blood Culture Result 1 (TANJA) - Final, Complete 12/07/16 Urine Culture - Final, Complete 12/07/16 Urine Culture Result 1 (TANJA) - Final, Complete 12/07/16 Antimicrobic Susceptibility - Final, Complete Medications Current Medications Sodium Chloride 1,000 ml @ 430 mls/hr Q2H20M IV Last administered on 13:06; Start 12/07/16 at 10:46; Stop 12/07/16 at 16:31; Status DC Ceftriaxone Sodium 50 ml @ 100 mls/hr 1X ONCE IV Last administered on 12:03; Start 12/07/16 at 12:00; Stop 12/07/16 at 12:29; Status DC Ondansetron HCl (Zofran) 4 mg PRN Q8HRS PRN IV NAUSEA/VOMITING; Start 12/07/16 at 13:00; Stop 12/08/16 at 12:59; Status DC Fentanyl Citrate (Fentanyl 2ml Vial) 50 mcg PRN Q2HR PRN IV PAIN; Start at 13:00; Stop 12/08/16 at 12:59; Status DC Sodium Chloride 1,000 ml @ 100 mls/hr Q10H IV Last administered on 12/08/16 08:20; Start 12/07/16 at 12:50; Stop 12/08/16 at 12:33; Status DC Acetaminophen (Tylenol) 650 mg PRN Q4HRS PRN PO FEVER; Start 12/07/16 at 13:00 ; Stop 12/08/16 at 12:59; Status DC Ceftriaxone Sodium 1 gm/ Sodium Chloride 50 ml @ 100 mls/hr Q24H IV ; Start at 13:00; Stop 12/08/16 at 23:24; Status DC Aspirin (Children'S Aspirin) 81 mg DAILY08 PO Last administered on 12/11/16 08 :40; Start 12/07/16 at 16:30 Carvedilol (Coreg) 3.125 mg BIDWMEALS PO Last administered on 12/11/16 08:38; Start 12/07/16 at 17:00 Furosemide (Lasix) 20 mg BID94 PO Last administered on 12/11/16 08:39; Start 12/07/16 at 16:30; Stop 12/11/16 at 09:24; Status DC Losartan Potassium (Cozaar) 50 mg DAILY PO Last administered on 12/10/16 09:04 ; Start 12/07/16 at 16:30; Stop 12/10/16 at 13:16; Status DC Darbepoetin Joey (Aranesp) 60 mcg Th SQ Last administered on 12/08/16 21:00; Start 12/08/16 at 21:00 Magnesium Sulfate/ Dextrose 50 ml @ 25 mls/hr PRN DAILY PRN IV for Mag < 1.7 on am labs; Start 12/08/16 at 10:45 Cyanocobalamin (Vitamin B-12) 500 mcg DAILY PO Last administered on 12/11/16 08:39; Start 12/09/16 at 09:00 Cyclobenzaprine HCl (Flexeril) 10 mg QHS PO Last administered on 12/10/16 20: 44; Start 12/08/16 at 22:00 Docusate Sodium (Colace) 100 mg BID PO Last administered on 12/11/16 08:39; Start 12/08/16 at 22:00 Estrogens Conjugated (Premarin) 1 kristal 3X/WEEK VG ; Start 12/09/16 at 09:00 Metformin HCl (Glucophage) 1,000 mg BID PO ; Start 12/09/16 at 09:00; Status UNV Polyethylene Glycol (miraLAX PACKET) 17 gm DAILY PO Last administered on 08:40; Start 12/09/16 at 09:00 Gabapentin (Neurontin) 600 mg TID PO Last administered on 12/09/16 15:17; Start 12/08/16 at 22:00 Insulin Aspart (NovoLOG) 3 units TIDAC SQ Last administered on 12/10/16 11:26 ; Start 12/09/16 at 07:30; Stop 12/10/16 at 16:58; Status DC Insulin Detemir (Levemir) 25 units QHS SQ Last administered on 12/10/16 00:05 ; Start 12/08/16 at 22:00; Stop 12/10/16 at 16:58; Status DC Oxybutynin Chloride (Ditropan) 5 mg DAILY PO Last administered on 12/11/16 08: 40; Start 12/09/16 at 09:00 Acetaminophen/ Hydrocodone Bitart (Lortab 5/325) 1 tab PRN Q6HRS PRN PO PAIN Last administered on 12/11/16 03:02; Start 12/08/16 at 21:45 Insulin Aspart (NovoLOG) 0-9 UNITS TIDWMEALS SQ Last administered on 12/11/16 12:14; Start 12/09/16 at 08:00 Dextrose (Dextrose 50%-Water Syringe) 12.5 gm PRN Q15MIN PRN IV SEE COMMENTS Last administered on 12/10/16 16:14; Start 12/08/16 at 21:45 Trimethoprim/ Sulfamethoxazole (Bactrim Ds) 1 tab [id number] PO Last administered on 12/09/16 06:35; Start 12/09/16 at 07:00; Stop 12/09/16 at 13:33; Status DC Ceftriaxone Sodium 2 gm/ Sodium Chloride 100 ml @ 200 mls/hr Q24H IV Last administered on 12/10/16 13:31; Start 12/09/16 at 14:00 Lidocaine/Sodium Bicarbonate (Buffered Lidocaine 1%) 20 ml STK-MED ONCE IJ ; Start 12/09/16 at 14:19; Stop 12/09/16 at 14:20; Status DC Heparin Sodium/ Sodium Chloride 500 ml @ As Directed STK-MED ONCE .ROUTE ; Start 12/09/16 at 14:19; Stop 12/09/16 at 14:20; Status DC Lidocaine/Sodium Bicarbonate (Buffered Lidocaine 1%) 20 ml 1X ONCE IJ Last administered on 12/09/16 14:32; Start 12/09/16 at 14:30; Stop 12/09/16 at 14:31 ; Status DC Heparin Sodium/ Sodium Chloride 60 unit 1X ONCE IV Last administered on 14:32; Start 12/09/16 at 14:30; Stop 12/09/16 at 14:31; Status DC Losartan Potassium (Cozaar) 25 mg DAILY PO Last administered on 12/11/16 08:39 ; Start 12/11/16 at 09:00 Insulin Aspart (NovoLOG) 1 units TIDAC SQ Last administered on 12/11/16 12:15 ; Start 12/11/16 at 07:30 Insulin Detemir (Levemir) 6 units QHS SQ Last administered on 12/10/16 21:42; Start 12/10/16 at 21:00 Magnesium Sulfate/ Dextrose 50 ml @ 25 mls/hr PRN DAILY PRN IV for Mag < 1.7 on am labs; Start 12/11/16 at 09:30; Status UNV Polyethylene Glycol (miraLAX PACKET) 17 gm 1X ONCE PO Last administered on t 12:09; Start 12/11/16 at 09:30; Stop 12/11/16 at 09:31; Status DC Polyethylene Glycol (miraLAX PACKET) 17 gm PRN DAILY PRN PO CONSTIPATION; Start 12/11/16 at 09:30 Active Scripts Active Miralax (Polyethylene Glycol 3350) 17 Gm Powd.pack 17 Packet PO DAILY Colace (Docusate Sodium) 100 Mg Capsule 1 Cap PO BID [Hydrocodone/Acetaminophen] 1 TAB Tablet 1 Tab PO PRN Q6HRS PRN Reported Losartan Potassium 50 Mg Tablet 50 Mg PO DAILY Furosemide 20 Mg Tablet 20 Mg PO BID Coreg (Carvedilol) 3.125 Mg Tablet 1 Tab PO BID Premarin (Estrogens, Conjugated) 30 Gm Cream.appl 1 Kristal VG 3X/WEEK Cyclobenzaprine Hcl 10 Mg Tablet 1 Tab PO QHS Oxybutynin Chloride Er (Oxybutynin Chloride) 5 Mg Tab.er.24 1 Tab PO DAILY Gabapentin 300 Mg Capsule 600 Mg PO TID Vitamin B-12 (Cyanocobalamin (Vitamin B-12)) 1,000 Mcg Tablet 500 Mcg PO DAILY Lantus Solostar (Insulin Glargine,Hum.rec.anlog) 100 Unit/1 Ml Insuln.pen 25 Unit SQ QHS Novolog (Insulin Aspart) 100 Unit/1 Ml Cartridge 3 Unit SQ TIDAC Aspirin 81 Mg Tab.chew 81 Mg PO Metformin Hcl 500 Mg Tablet 1,000 Mg PO BID Calcium Citrate - Vit D3 Tab (Calcium Citrate/Vitamin D3) 1 Each Tablet 1 Each PO Vitals/I & O Vital Sign - Last 24 Hours 12/10/16 12/10/16 12/10/16 12/10/16 15:00 16:52 19:00 20:00 Temp 98.9 98.1 98.9 98.1 Pulse 72 72 84 Resp 16 20 B/P (MAP) 101/62 (75) 101/62 123/74 (90) Pulse Ox 96 94 O2 Delivery Nasal Cannula Nasal Cannula Nasal Cannula O2 Flow Rate 2.0 2.0 2.0 6/2412/11/16 12/11/16 12/11/16 23:00 03:00 03:02 04:02 Temp 98.7 98.5 98.7 98.5 Pulse 83 102 Resp 20 20 18 18 B/P (MAP) 118/53 (74) 109/69 (82) Pulse Ox 94 96 94 94 O2 Delivery Room Air Nasal Cannula Nasal Cannula Nasal Cannula O2 Flow Rate 4.0 2.0 2.0 12/11/16 12/11/16 12/11/16 12/11/16 07:00 08:05 08:38 08:39 Temp 98.5 98.5 Pulse 102 102 102 Resp 16 B/P (MAP) 109/59 (76) 109/59 109/59 Pulse Ox 97 O2 Delivery Nasal Cannula Nasal Cannula O2 Flow Rate 4.0 2.0 12/11/16 11:03 Temp 97.5 97.5 Pulse 75 Resp 17 B/P (MAP) 102/56 (71) Pulse Ox 96 O2 Delivery Nasal Cannula O2 Flow Rate 4.0 Intake and Output 12/10/16 12/10/16 12/11/16 15:00 23:00 07:00 Intake Total 480 ml 790 ml 700 ml Output Total 300 ml Balance 480 ml 790 ml 400 ml BULMARO HAIRSTON III DO Dec 11, 2016 13:29
[2016-12-11 15:06] VITALS: BP 92/56
--- NOTE | 2016-12-11 17:10 | RAD ---
PQRS Compliance Statement: One or more of the following individualized dose reduction techniques were utilized for this examination: 1. Automated exposure control 2. Adjustment of the mA and/or kV according to patient size 3. Use of iterative reconstruction technique CT SOFT TISSUE NECK WO CONTRAST Clinical Indication: neck pain x2 weeks. Comparison: CT chest with contrast 07/01/2011. Technique: Helical CT imaging of the soft tissues of the neck is performed without IV contrast. IV contrast not given due to renal failure. Findings: There is right PICC, tip is not imaged, portion seen is in the mid SVC. There is mild upper mediastinal adenopathy. There are mildly enlarged left subpectoral lymph nodes, for example image 20 there is a 22 x 14 mm lymph node. Visualized adenopathy is improved compared to prior study. There is mild left supraclavicular adenopathy that is similar. The thyroid gland is symmetric. Submandibular glands are symmetric. Parotid glands are symmetric. There are subcentimeter cervical lymph nodes. The para pharyngeal fat planes are preserved. Visualized brain without midline shift. 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 The globes and orbits are intact. The paranasal sinuses and mastoid air cells are clear. The cervical spine alignment is maintained. Subcutaneous fat induration anterior to the mid to medial left clavicle, nonspecific. IMPRESSION: 1. No acute abnormality in the neck. 2. Mild upper mediastinal and left subpectoral and supraclavicular adenopathy. Finding is stable or improved from prior study. 3. 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
[2016-12-11 19:00] VITALS: BP 108/66
[2016-12-11] MEDS: INSULIN DETEMIR 300 UNITS/3 ML INSULN.PEN. SQ SCH (21:00)
[2016-12-11] MEDS: CYCLOBENZAPRINE 10 MG TABLET. PO SCH (21:07)
[2016-12-11 23:00] VITALS: BP 105/65
[2016-12-12 06:05] LABS: CALCIUM 8.9 mg/dL (8.5-10.1); CREATININE 2.1 mg/dL (0.6-1.0); GFR 29.1; PHOSPHORUS 3.8 mg/dL (2.6-4.7); POTASSIUM 4.7 mmol/L (3.5-5.1)
[2016-12-12 07:00] VITALS: BP 129/74
[2016-12-12] MEDS: INSULIN ASPART 300 UNITS/3 ML INSULN.PEN SQ SCH ×6 (08:00→17:29)
[2016-12-12] MEDS: ASPIRIN CHEWABLE 81 MG TABLET. PO SCH (08:29)
[2016-12-12] MEDS: CARVEDILOL 3.125 MG TABLET. PO SCH ×2 (08:29→17:27)
[2016-12-12] MEDS: CYANOCOBALAMIN (VITAMIN B-12) 1,000 MCG TABLET. PO SCH (08:29)
[2016-12-12] MEDS: OXYBUTYNIN CHLORIDE 5 MG TABLET PO SCH (08:29)
[2016-12-12] MEDS: GABAPENTIN 300 MG CAPSULE. PO SCH ×3 (08:30→20:31)
[2016-12-12] MEDS: DOCUSATE SODIUM 100 MG CAPSULE. PO SCH ×2 (08:30→20:27)
[2016-12-12] MEDS: LOSARTAN POTASSIUM 25 MG TABLET. PO SCH (08:30)
[2016-12-12] MEDS: POLYETHYLENE GLYCOL 3350 17 GM PACKET. PO SCH ×2 (08:30→14:54)
[2016-12-12] MEDS: ESTROGENS, CONJ VAGINAL CREAM 30GM TUBE. VG SCH (08:31)
--- NOTE | 2016-12-12 09:38 | PDOC ---
Infectious Disease Note Subjective Subjective Doing ok this am Still c/o right shoulder and neck pain last night, relieved with pain med Constipated ROS ROS GEN: Denies fevers, chills, sweats HEENT: Denies blurred vision, sore throat CV: Denies chest pain RESP: Denies shortness of air, cough GI: Denies n/v/d NEURO: Denies confusion, dizziness Vital Sign Vital Signs Vital Signs Date Time Temp Pulse Resp B/P (MAP) Pulse Ox O2 Delivery O2 Flow Rate FiO2 12/12/16 08:30 93 129/74 12/12/16 07:00 98.4 16 99 Nasal Cannula 2.0 98.4 Physical Exam PHYSICAL EXAM GENERAL: Propped up in chair, NAD, ambulated HEENT: Oral mucosa is pink NECK: Supple. LUNGS: Clear to auscultation. HEART: Normal S1, S2. ABDOMEN: Obese, bowel sounds present, soft, nontender. EXTREMITIES: No gross edema or cyanosis. GUILLERMO hose on. Previous toe amp unremarkable SKIN: Without rash. Warm to touch.Neck without inflammation NEUROLOGIC: Alert and oriented x 3. RUE-PICC. (12/09). clean Labs Lab Laboratory Tests Test 12/11/16 11:20 12/11/16 16:20 12/11/16 21:16 12/12/16 05:17 Glucose (Fingerstick) 151 mg/dL (70-99) 105 mg/dL (70-99) 94 mg/dL (70-99) Sodium Level 134 mmol/L (136-145) Potassium Level 4.7 mmol/L (3.5-5.1) Chloride Level 104 mmol/L (98-107) Carbon Dioxide Level 23 mmol/L (21-32) Anion Gap 7 (6-14) Blood Urea Nitrogen 49 mg/dL (7-20) Creatinine 2.1 mg/dL (0.6-1.0) Estimated GFR (Cockcroft-Gault) 29.1 Glucose Level 151 mg/dL (70-99) Calcium Level 8.9 mg/dL (8.5-10.1) Phosphorus Level 3.8 mg/dL (2.6-4.7) Albumin 2.0 g/dL (3.4-5.0) Test 12/12/16 07:30 Glucose (Fingerstick) 131 mg/dL (70-99) Micro BLD CULT RESULT 1 Final Escherichia coli BLOOD CULTURE PRL Preliminary Preliminary report BLD CULT RESULT 1 Preliminary Escherichia coli Recovered from anaerobic bottle only. GROWTH IN 2 OF 2 SETS ANTIMICROBIAL SUSCEPTIBILITY Preliminary Comment S = Susceptible; I = Intermediate; R = Resistant P = Positive; N = Negative MICS are expressed in micrograms per mL Antibiotic RSLT#1 RSLT#2 RSLT#3 RSLT#4 Amoxicillin/Clavulanic Acid S Ampicillin R Cefepime S Ceftriaxone S Cefuroxime S Cephalothin I Ciprofloxacin S Ertapenem S Gentamicin S Imipenem S Levofloxacin S Nitrofurantoin S Piperacillin R Tetracycline R Tobramycin S Trimethoprim/Sulfa R URINE CULTURE RES 1 Final Escherichia coli Antibiotic RSLT#1 Amoxicillin/Clavulanic Acid S Ampicillin S Cefepime S Ceftriaxone S Cefuroxime S Cephalothin S Ciprofloxacin S Ertapenem S Gentamicin S Imipenem S Levofloxacin S Nitrofurantoin S Piperacillin S Tetracycline S Tobramycin S Trimethoprim/Sulfa S Objective Assessment E. coli sepsis, POA. (12/07) E. coli UTI, POA Constipation Cipro allergy, unknown reaction CKD Diabetes Chronic systolic heart failure Recent left 2nd toe infection s/p partial amputation, healed. h/o MRSA Recent h/o NSTEMI Neck pain for 2 weeks - CT reviewed - d/w Dr. Morelos Plan Plan of Care Cont Rocephin - hope to change to po after dose 12/13 Relieve constipation. No BM for a week Monitor WBC, Cr and temp CHELI GROSSMAN MD Dec 12, 2016 09:38
[2016-12-12 10:13] LABS: BASO % 0 % (0-3); EOS % 2 % (0-3); HEMATOCRIT 27.4 % (36.0-47.0); HEMOGLOBIN 8.8 g/dL (12.0-15.5); LYMPH # 1.2 x10^3/uL (1.0-4.8); LYMPH % 26 % (24-48); MEAN CORPUSCULAR HEMOGLOBIN 27 pg (25-35); MEAN CORPUSCULAR HGB CONC 32 g/dL (31-37); MEAN CORPUSCULAR VOLUME 83 fL (79-100); MONO % 13 % (0-9); NEUT % 59 % (31-73); PLATELET COUNT 175 x10^3/uL (140-400); RED CELL DISTRIBUTION WIDTH 17.3 % (11.5-14.5); WHITE BLOOD COUNT 4.8 x10^3/uL (4.0-11.0)
--- NOTE | 2016-12-12 10:25 | RAD ---
Indication: Epigastric pain. Time of exam 10:10 AM The heart is enlarged. A right upper extremity PICC line has the tip overlying the SVC. Linear scarring or atelectasis left mid lung field is noted. No free air is detected. There are surgical clips in the gallbladder fossa. The bowel gas pattern is nonobstructed. No pathologic calcifications are seen. There is moderate stool present in the right colon. Impression: No acute abnormality is detected.
[2016-12-12 10:54] VITALS: BP 103/60
--- NOTE | 2016-12-12 11:29 | PDOC ---
PROGRESS NOTES Chief Complaint Chief Complaint Urinary tract infection with Ecoli Sepsis with UTI E Coli bacteremia neck pain, 2/2 muscle spasm likely dm2 ckd4 constipation h/o recent NTEMI With ICD HTN plan: fu with ID, on ceftriaxone dr. Morelos consult for neck pain, PTOT ADD stool softner CHECK AXR, ruled out obstruction dvt ppx History of Present Illness History of Present Illness constipation for 6ds tired right shoulder , neck pain with tenderness Vitals Vitals Vital Signs Date Time Temp Pulse Resp B/P (MAP) Pulse Ox O2 Delivery O2 Flow Rate FiO2 12/12/16 10:54 98.2 88 17 103/60 (74) 96 Room Air 98.2 12/12/16 07:45 2.0 Physical Exam Physical Exam right shoulder tenderness General: Alert, Oriented X3, Cooperative, No acute distress Heart: Regular rate, Other (3/6 systolic murmur ) Lungs: Clear, Other Abdomen: Soft, No tenderness Extremities: No clubbing, No edema, Normal pulses Skin: No rashes, No breakdown, No significant lesion Labs LABS Laboratory Tests Test 12/11/16 16:20 12/11/16 21:16 12/12/16 05:17 12/12/16 07:30 Glucose (Fingerstick) 105 mg/dL (70-99) 94 mg/dL (70-99) 131 mg/dL (70-99) White Blood Count 4.8 x10^3/uL (4.0-11.0) Red Blood Count 3.30 x10^6/uL (3.50-5.40) Hemoglobin 8.8 g/dL (12.0-15.5) Hematocrit 27.4 % (36.0-47.0) Mean Corpuscular Volume 83 fL (79-100) Mean Corpuscular Hemoglobin 27 pg (25-35) Mean Corpuscular Hemoglobin Concent 32 g/dL (31-37) Red Cell Distribution Width 17.3 % (11.5-14.5) Platelet Count 175 x10^3/uL (140-400) Neutrophils (%) (Auto) 59 % (31-73) Lymphocytes (%) (Auto) 26 % (24-48) Monocytes (%) (Auto) 13 % (0-9) Eosinophils (%) (Auto) 2 % (0-3) Basophils (%) (Auto) 0 % (0-3) Neutrophils # (Auto) 2.8 x10^3uL (1.8-7.7) Lymphocytes # (Auto) 1.2 x10^3/uL (1.0-4.8) Monocytes # (Auto) 0.6 x10^3/uL (0.0-1.1) Eosinophils # (Auto) 0.1 x10^3/uL (0.0-0.7) Basophils # (Auto) 0.0 x10^3/uL (0.0-0.2) Sodium Level 134 mmol/L (136-145) Potassium Level 4.7 mmol/L (3.5-5.1) Chloride Level 104 mmol/L (98-107) Carbon Dioxide Level 23 mmol/L (21-32) Anion Gap 7 (6-14) Blood Urea Nitrogen 49 mg/dL (7-20) Creatinine 2.1 mg/dL (0.6-1.0) Estimated GFR (Cockcroft-Gault) 29.1 Glucose Level 151 mg/dL (70-99) Calcium Level 8.9 mg/dL (8.5-10.1) Phosphorus Level 3.8 mg/dL (2.6-4.7) Magnesium Level 2.2 mg/dL (1.8-2.4) Albumin 2.0 g/dL (3.4-5.0) Test 12/12/16 11:02 Glucose (Fingerstick) 173 mg/dL (70-99) Review of Systems Review of Systems no fever, chills, sob or chest pain Assessment and Plan Assessmemt and Plan Problems Medical Problems: (1) Elevated troponin Status: Acute (2) Renal insufficiency Status: Acute (3) Sepsis Status: Acute (4) Urinary tract infection Status: Acute Problems: Comment Review of Relevant I have reviewed the following items bro (where applicable) has been applied. Labs Laboratory Tests Test 12/10/16 16:12 12/10/16 16:25 12/10/16 21:22 12/11/16 04:40 Glucose (Fingerstick) 22 mg/dL (70-99) 95 mg/dL (70-99) 192 mg/dL (70-99) White Blood Count 5.2 x10^3/uL (4.0-11.0) Red Blood Count 3.28 x10^6/uL (3.50-5.40) Hemoglobin 8.7 g/dL (12.0-15.5) Hematocrit 27.1 % (36.0-47.0) Mean Corpuscular Volume 83 fL (79-100) Mean Corpuscular Hemoglobin 27 pg (25-35) Mean Corpuscular Hemoglobin Concent 32 g/dL (31-37) Red Cell Distribution Width 17.0 % (11.5-14.5) Platelet Count 171 x10^3/uL (140-400) Neutrophils (%) (Auto) 65 % (31-73) Lymphocytes (%) (Auto) 20 % (24-48) Monocytes (%) (Auto) 12 % (0-9) Eosinophils (%) (Auto) 2 % (0-3) Basophils (%) (Auto) 1 % (0-3) Neutrophils # (Auto) 3.4 x10^3uL (1.8-7.7) Lymphocytes # (Auto) 1.0 x10^3/uL (1.0-4.8) Monocytes # (Auto) 0.6 x10^3/uL (0.0-1.1) Eosinophils # (Auto) 0.1 x10^3/uL (0.0-0.7) Basophils # (Auto) 0.0 x10^3/uL (0.0-0.2) Sodium Level 133 mmol/L (136-145) Potassium Level 4.3 mmol/L (3.5-5.1) Chloride Level 102 mmol/L (98-107) Carbon Dioxide Level 25 mmol/L (21-32) Anion Gap 6 (6-14) Blood Urea Nitrogen 47 mg/dL (7-20) Creatinine 2.3 mg/dL (0.6-1.0) Estimated GFR (Cockcroft-Gault) 26.2 Glucose Level 240 mg/dL (70-99) Calcium Level 8.5 mg/dL (8.5-10.1) Phosphorus Level 3.4 mg/dL (2.6-4.7) Magnesium Level 2.0 mg/dL (1.8-2.4) Albumin 2.0 g/dL (3.4-5.0) Test 12/11/16 07:21 12/11/16 11:20 12/11/16 16:20 12/11/16 21:16 Glucose (Fingerstick) 226 mg/dL (70-99) 151 mg/dL (70-99) 105 mg/dL (70-99) 94 mg/dL (70-99) Test 12/12/16 05:17 12/12/16 07:30 12/12/16 11:02 White Blood Count 4.8 x10^3/uL (4.0-11.0) Red Blood Count 3.30 x10^6/uL (3.50-5.40) Hemoglobin 8.8 g/dL (12.0-15.5) Hematocrit 27.4 % (36.0-47.0) Mean Corpuscular Volume 83 fL (79-100) Mean Corpuscular Hemoglobin 27 pg (25-35) Mean Corpuscular Hemoglobin Concent 32 g/dL (31-37) Red Cell Distribution Width 17.3 % (11.5-14.5) Platelet Count 175 x10^3/uL (140-400) Neutrophils (%) (Auto) 59 % (31-73) Lymphocytes (%) (Auto) 26 % (24-48) Monocytes (%) (Auto) 13 % (0-9) Eosinophils (%) (Auto) 2 % (0-3) Basophils (%) (Auto) 0 % (0-3) Neutrophils # (Auto) 2.8 x10^3uL (1.8-7.7) Lymphocytes # (Auto) 1.2 x10^3/uL (1.0-4.8) Monocytes # (Auto) 0.6 x10^3/uL (0.0-1.1) Eosinophils # (Auto) 0.1 x10^3/uL (0.0-0.7) Basophils # (Auto) 0.0 x10^3/uL (0.0-0.2) Sodium Level 134 mmol/L (136-145) Potassium Level 4.7 mmol/L (3.5-5.1) Chloride Level 104 mmol/L (98-107) Carbon Dioxide Level 23 mmol/L (21-32) Anion Gap 7 (6-14) Blood Urea Nitrogen 49 mg/dL (7-20) Creatinine 2.1 mg/dL (0.6-1.0) Estimated GFR (Cockcroft-Gault) 29.1 Glucose Level 151 mg/dL (70-99) Calcium Level 8.9 mg/dL (8.5-10.1) Phosphorus Level 3.8 mg/dL (2.6-4.7) Magnesium Level 2.2 mg/dL (1.8-2.4) Albumin 2.0 g/dL (3.4-5.0) Glucose (Fingerstick) 131 mg/dL (70-99) 173 mg/dL (70-99) Laboratory Tests Test 12/11/16 16:20 12/11/16 21:16 12/12/16 05:17 12/12/16 07:30 Glucose (Fingerstick) 105 mg/dL (70-99) 94 mg/dL (70-99) 131 mg/dL (70-99) White Blood Count 4.8 x10^3/uL (4.0-11.0) Red Blood Count 3.30 x10^6/uL (3.50-5.40) Hemoglobin 8.8 g/dL (12.0-15.5) Hematocrit 27.4 % (36.0-47.0) Mean Corpuscular Volume 83 fL (79-100) Mean Corpuscular Hemoglobin 27 pg (25-35) Mean Corpuscular Hemoglobin Concent 32 g/dL (31-37) Red Cell Distribution Width 17.3 % (11.5-14.5) Platelet Count 175 x10^3/uL (140-400) Neutrophils (%) (Auto) 59 % (31-73) Lymphocytes (%) (Auto) 26 % (24-48) Monocytes (%) (Auto) 13 % (0-9) Eosinophils (%) (Auto) 2 % (0-3) Basophils (%) (Auto) 0 % (0-3) Neutrophils # (Auto) 2.8 x10^3uL (1.8-7.7) Lymphocytes # (Auto) 1.2 x10^3/uL (1.0-4.8) Monocytes # (Auto) 0.6 x10^3/uL (0.0-1.1) Eosinophils # (Auto) 0.1 x10^3/uL (0.0-0.7) Basophils # (Auto) 0.0 x10^3/uL (0.0-0.2) Sodium Level 134 mmol/L (136-145) Potassium Level 4.7 mmol/L (3.5-5.1) Chloride Level 104 mmol/L (98-107) Carbon Dioxide Level 23 mmol/L (21-32) Anion Gap 7 (6-14) Blood Urea Nitrogen 49 mg/dL (7-20) Creatinine 2.1 mg/dL (0.6-1.0) Estimated GFR (Cockcroft-Gault) 29.1 Glucose Level 151 mg/dL (70-99) Calcium Level 8.9 mg/dL (8.5-10.1) Phosphorus Level 3.8 mg/dL (2.6-4.7) Magnesium Level 2.2 mg/dL (1.8-2.4) Albumin 2.0 g/dL (3.4-5.0) Test 12/12/16 11:02 Glucose (Fingerstick) 173 mg/dL (70-99) Microbiology 12/07/16 Blood Culture - Final, Complete 12/07/16 Blood Culture Result 1 (TANJA) - Final, Complete 12/07/16 Urine Culture - Final, Complete 12/07/16 Urine Culture Result 1 (TANJA) - Final, Complete 12/07/16 Antimicrobic Susceptibility - Final, Complete Medications Current Medications Sodium Chloride 1,000 ml @ 430 mls/hr Q2H20M IV Last administered on 13:06; Start 12/07/16 at 10:46; Stop 12/07/16 at 16:31; Status DC Ceftriaxone Sodium 50 ml @ 100 mls/hr 1X ONCE IV Last administered on 12:03; Start 12/07/16 at 12:00; Stop 12/07/16 at 12:29; Status DC Ondansetron HCl (Zofran) 4 mg PRN Q8HRS PRN IV NAUSEA/VOMITING; Start 12/07/16 at 13:00; Stop 12/08/16 at 12:59; Status DC Fentanyl Citrate (Fentanyl 2ml Vial) 50 mcg PRN Q2HR PRN IV PAIN; Start at 13:00; Stop 12/08/16 at 12:59; Status DC Sodium Chloride 1,000 ml @ 100 mls/hr Q10H IV Last administered on 12/08/16 08:20; Start 12/07/16 at 12:50; Stop 12/08/16 at 12:33; Status DC Acetaminophen (Tylenol) 650 mg PRN Q4HRS PRN PO FEVER; Start 12/07/16 at 13:00 ; Stop 12/08/16 at 12:59; Status DC Ceftriaxone Sodium 1 gm/ Sodium Chloride 50 ml @ 100 mls/hr Q24H IV ; Start at 13:00; Stop 12/08/16 at 23:24; Status DC Aspirin (Children'S Aspirin) 81 mg DAILY08 PO Last administered on 12/12/16 08 :29; Start 12/07/16 at 16:30 Carvedilol (Coreg) 3.125 mg BIDWMEALS PO Last administered on 12/12/16 08:29; Start 12/07/16 at 17:00 Furosemide (Lasix) 20 mg BID94 PO Last administered on 12/11/16 08:39; Start 12/07/16 at 16:30; Stop 12/11/16 at 09:24; Status DC Losartan Potassium (Cozaar) 50 mg DAILY PO Last administered on 12/10/16 09:04 ; Start 12/07/16 at 16:30; Stop 12/10/16 at 13:16; Status DC Darbepoetin Joey (Aranesp) 60 mcg Th SQ Last administered on 12/08/16 21:00; Start 12/08/16 at 21:00 Magnesium Sulfate/ Dextrose 50 ml @ 25 mls/hr PRN DAILY PRN IV for Mag < 1.7 on am labs; Start 12/08/16 at 10:45 Cyanocobalamin (Vitamin B-12) 500 mcg DAILY PO Last administered on 12/12/16 08:29; Start 12/09/16 at 09:00 Cyclobenzaprine HCl (Flexeril) 10 mg QHS PO Last administered on 12/11/16 21: 07; Start 12/08/16 at 22:00 Docusate Sodium (Colace) 100 mg BID PO Last administered on 12/12/16 08:30; Start 12/08/16 at 22:00 Estrogens Conjugated (Premarin) 1 kristal 3X/WEEK VG ; Start 12/09/16 at 09:00 Metformin HCl (Glucophage) 1,000 mg BID PO ; Start 12/09/16 at 09:00; Status UNV Polyethylene Glycol (miraLAX PACKET) 17 gm DAILY PO Last administered on 08:30; Start 12/09/16 at 09:00 Gabapentin (Neurontin) 600 mg TID PO Last administered on 12/11/16 21:07; Start 12/08/16 at 22:00 Insulin Aspart (NovoLOG) 3 units TIDAC SQ Last administered on 12/10/16 11:26 ; Start 12/09/16 at 07:30; Stop 12/10/16 at 16:58; Status DC Insulin Detemir (Levemir) 25 units QHS SQ Last administered on 12/10/16 00:05 ; Start 12/08/16 at 22:00; Stop 12/10/16 at 16:58; Status DC Oxybutynin Chloride (Ditropan) 5 mg DAILY PO Last administered on 12/12/16 08: 29; Start 12/09/16 at 09:00 Acetaminophen/ Hydrocodone Bitart (Lortab 5/325) 1 tab PRN Q6HRS PRN PO PAIN Last administered on 12/11/16 03:02; Start 12/08/16 at 21:45 Insulin Aspart (NovoLOG) 0-9 UNITS TIDWMEALS SQ Last administered on 12/11/16 12:14; Start 12/09/16 at 08:00 Dextrose (Dextrose 50%-Water Syringe) 12.5 gm PRN Q15MIN PRN IV SEE COMMENTS Last administered on 12/10/16 16:14; Start 12/08/16 at 21:45 Trimethoprim/ Sulfamethoxazole (Bactrim Ds) 1 tab [id number] PO Last administered on 12/09/16 06:35; Start 12/09/16 at 07:00; Stop 12/09/16 at 13:33; Status DC Ceftriaxone Sodium 2 gm/ Sodium Chloride 100 ml @ 200 mls/hr Q24H IV Last administered on 12/11/16 14:42; Start 12/09/16 at 14:00 Lidocaine/Sodium Bicarbonate (Buffered Lidocaine 1%) 20 ml STK-MED ONCE IJ ; Start 12/09/16 at 14:19; Stop 12/09/16 at 14:20; Status DC Heparin Sodium/ Sodium Chloride 500 ml @ As Directed STK-MED ONCE .ROUTE ; Start 12/09/16 at 14:19; Stop 12/09/16 at 14:20; Status DC Lidocaine/Sodium Bicarbonate (Buffered Lidocaine 1%) 20 ml 1X ONCE IJ Last administered on 12/09/16 14:32; Start 12/09/16 at 14:30; Stop 12/09/16 at 14:31 ; Status DC Heparin Sodium/ Sodium Chloride 60 unit 1X ONCE IV Last administered on 14:32; Start 12/09/16 at 14:30; Stop 12/09/16 at 14:31; Status DC Losartan Potassium (Cozaar) 25 mg DAILY PO Last administered on 12/12/16 08:30 ; Start 12/11/16 at 09:00 Insulin Aspart (NovoLOG) 1 units TIDAC SQ Last administered on 12/12/16 08:40 ; Start 12/11/16 at 07:30 Insulin Detemir (Levemir) 6 units QHS SQ Last administered on 12/10/16 21:42; Start 12/10/16 at 21:00 Magnesium Sulfate/ Dextrose 50 ml @ 25 mls/hr PRN DAILY PRN IV for Mag < 1.7 on am labs; Start 12/11/16 at 09:30; Status UNV Polyethylene Glycol (miraLAX PACKET) 17 gm 1X ONCE PO Last administered on 12:09; Start 12/11/16 at 09:30; Stop 12/11/16 at 09:31; Status DC Polyethylene Glycol (miraLAX PACKET) 17 gm PRN DAILY PRN PO CONSTIPATION; Start 12/11/16 at 09:30 Polyethylene Glycol (miraLAX PACKET) 17 gm DAILY PO ; Start 12/12/16 at 09:45 Active Scripts Active Miralax (Polyethylene Glycol 3350) 17 Gm Powd.pack 17 Packet PO DAILY Colace (Docusate Sodium) 100 Mg Capsule 1 Cap PO BID [Hydrocodone/Acetaminophen] 1 TAB Tablet 1 Tab PO PRN Q6HRS PRN Reported Losartan Potassium 50 Mg Tablet 50 Mg PO DAILY Furosemide 20 Mg Tablet 20 Mg PO BID Coreg (Carvedilol) 3.125 Mg Tablet 1 Tab PO BID Premarin (Estrogens, Conjugated) 30 Gm Cream.appl 1 Kristal VG 3X/WEEK Cyclobenzaprine Hcl 10 Mg Tablet 1 Tab PO QHS Oxybutynin Chloride Er (Oxybutynin Chloride) 5 Mg Tab.er.24 1 Tab PO DAILY Gabapentin 300 Mg Capsule 600 Mg PO TID Vitamin B-12 (Cyanocobalamin (Vitamin B-12)) 1,000 Mcg Tablet 500 Mcg PO DAILY Lantus Solostar (Insulin Glargine,Hum.rec.anlog) 100 Unit/1 Ml Insuln.pen 25 Unit SQ QHS Novolog (Insulin Aspart) 100 Unit/1 Ml Cartridge 3 Unit SQ TIDAC Aspirin 81 Mg Tab.chew 81 Mg PO Metformin Hcl 500 Mg Tablet 1,000 Mg PO BID Calcium Citrate - Vit D3 Tab (Calcium Citrate/Vitamin D3) 1 Each Tablet 1 Each PO Vitals/I & O Vital Sign - Last 24 Hours 12/11/16 12/11/16 12/11/16 12/11/16 15:06 16:50 19:00 19:55 Temp 97.3 98.6 97.3 98.6 Pulse 77 81 87 Resp 16 20 B/P (MAP) 92/56 (68) 103/67 108/66 (80) Pulse Ox 97 96 O2 Delivery Nasal Cannula Room Air Nasal Cannula O2 Flow Rate 2.0 2.0 12/11/16 12/12/16 12/12/16 12/12/16 23:00 03:00 07:00 07:45 Temp 98.8 98.4 98.8 98.4 Pulse 93 93 Resp 20 18 16 B/P (MAP) 105/65 (78) 129/74 (92) Pulse Ox 98 99 O2 Delivery Room Air Nasal Cannula Nasal Cannula Nasal Cannula O2 Flow Rate 2.0 2.0 2.0 12/12/16 12/12/16 12/12/16 08:29 08:30 10:54 Temp 98.2 98.2 Pulse 93 93 88 Resp 17 B/P (MAP) 129/74 129/74 103/60 (74) Pulse Ox 96 O2 Delivery Room Air Intake and Output 12/11/16 12/11/16 12/12/16 15:00 23:00 07:00 Intake Total 340 ml 715 ml 400 ml Output Total 3 ml 700 ml Balance 340 ml 712 ml -300 ml TOSHIA ALTAMIRNAO MD Dec 12, 2016 11:29
[2016-12-12] MEDS ORDERED: MORPHINE SULFATE 2 MG/ML DISP.SYRIN. IV PRN (11:30)
[2016-12-12] MEDS ORDERED: MAGNESIUM HYDROXIDE 2,400 MG/30 ML ORAL.SUSP. PO PRN (11:30)
[2016-12-12] MEDS ORDERED: hydrALAZINE 20 MG/ML VIAL. IVP PRN (11:30)
[2016-12-12] MEDS ORDERED: ACETAMINOPHEN 325 MG TABLET. PO PRN (11:30)
[2016-12-12] MEDS ORDERED: DOCUSATE SODIUM 100 MG CAPSULE. PO PRN (11:30)
[2016-12-12] MEDS ORDERED: ONDANSETRON PF 4 MG/2 ML VIAL. IV PRN (11:30)
[2016-12-12] MEDS ORDERED: LACTULOSE 20 GM/30 ML SOLUTION. PO PRN (11:30)
[2016-12-12] MEDS ORDERED: traMADol 50 MG TABLET PO PRN (11:30)
--- NOTE | 2016-12-12 11:35 | PDOC ---
Renal-Progress Notes Subjective Notes Notes NONE History of Present Illness Hx of present illness STABLE Vitals Vitals Vital Signs Date Time Temp Pulse Resp B/P (MAP) Pulse Ox O2 Delivery O2 Flow Rate FiO2 12/12/16 10:54 98.2 88 17 103/60 (74) 96 Room Air 98.2 12/12/16 07:45 2.0 Weight Weight [ ] I.O. Intake and Output Intake and Output 12/12/16 07:00 Intake Total 1455 ml Output Total 703 ml Balance 752 ml Intake Oral 1340 ml IV Total 115 ml Output Urine Total 703 ml # Voids 1 Labs Labs Laboratory Tests Test 12/11/16 16:20 12/11/16 21:16 12/12/16 05:17 12/12/16 07:30 Glucose (Fingerstick) 105 mg/dL (70-99) 94 mg/dL (70-99) 131 mg/dL (70-99) White Blood Count 4.8 x10^3/uL (4.0-11.0) Red Blood Count 3.30 x10^6/uL (3.50-5.40) Hemoglobin 8.8 g/dL (12.0-15.5) Hematocrit 27.4 % (36.0-47.0) Mean Corpuscular Volume 83 fL (79-100) Mean Corpuscular Hemoglobin 27 pg (25-35) Mean Corpuscular Hemoglobin Concent 32 g/dL (31-37) Red Cell Distribution Width 17.3 % (11.5-14.5) Platelet Count 175 x10^3/uL (140-400) Neutrophils (%) (Auto) 59 % (31-73) Lymphocytes (%) (Auto) 26 % (24-48) Monocytes (%) (Auto) 13 % (0-9) Eosinophils (%) (Auto) 2 % (0-3) Basophils (%) (Auto) 0 % (0-3) Neutrophils # (Auto) 2.8 x10^3uL (1.8-7.7) Lymphocytes # (Auto) 1.2 x10^3/uL (1.0-4.8) Monocytes # (Auto) 0.6 x10^3/uL (0.0-1.1) Eosinophils # (Auto) 0.1 x10^3/uL (0.0-0.7) Basophils # (Auto) 0.0 x10^3/uL (0.0-0.2) Sodium Level 134 mmol/L (136-145) Potassium Level 4.7 mmol/L (3.5-5.1) Chloride Level 104 mmol/L (98-107) Carbon Dioxide Level 23 mmol/L (21-32) Anion Gap 7 (6-14) Blood Urea Nitrogen 49 mg/dL (7-20) Creatinine 2.1 mg/dL (0.6-1.0) Estimated GFR (Cockcroft-Gault) 29.1 Glucose Level 151 mg/dL (70-99) Calcium Level 8.9 mg/dL (8.5-10.1) Phosphorus Level 3.8 mg/dL (2.6-4.7) Magnesium Level 2.2 mg/dL (1.8-2.4) Albumin 2.0 g/dL (3.4-5.0) Test 12/12/16 11:02 Glucose (Fingerstick) 173 mg/dL (70-99) Micro Micro Microbiology 12/07/16 Blood Culture - Final, Complete 12/07/16 Blood Culture Result 1 (TANJA) - Final, Complete 12/07/16 Urine Culture - Final, Complete 12/07/16 Urine Culture Result 1 (TANJA) - Final, Complete 12/07/16 Antimicrobic Susceptibility - Final, Complete Review of Systems Constitutional: yes: no symptom reported Physical Exam General Appearance: no apparent distress Skin: warm Respiratory: bilateral CTA Heart: S1S2, RRR Genitourinary: bladder flat Extremities: atrophy Musculoskeletal: Other (osteomyelitis ) Assessment Assessment IMP E COLI UTI E COLI SEPSIS CM WITH EF OF 20% CKD STAGE 3 TO 4 WITH STABLE CR AT 2.1 PLAN ANTIBIOTICS SUPPORTIVE CARE LABS IN DOROTHEA KENDRICK MD Dec 12, 2016 11:35
[2016-12-12] MEDS ORDERED: DOCUSATE SODIUM 100 MG CAPSULE. PO SCH (12:00)
[2016-12-12 14:58] VITALS: BP 90/52
[2016-12-12] MEDS: HEPARIN PF for SUB-Q USE 5,000 UNIT/0.5 ML VIAL. SQ SCH ×2 (15:03→21:30)
[2016-12-12 19:00] VITALS: BP 102/59
[2016-12-12] MEDS: CYCLOBENZAPRINE 10 MG TABLET. PO SCH (20:26)
[2016-12-12] MEDS: INSULIN DETEMIR 300 UNITS/3 ML INSULN.PEN. SQ SCH (20:31)
[2016-12-12] MEDS: HYDROcodone/APAP 5/325MG 1 TAB TABLET PO PRN (22:30)
[2016-12-12 22:55] VITALS: BP 137/86
--- NOTE | 2016-12-13 04:12 | CONS ---
DATE OF CONSULTATION: ATTENDING PHYSICIAN: TOSHIA ALTAMIRANO MD The patient was seen at the request of Dr. Altamirano for rehab evaluation about her right-sided neck pain for about two weeks. HISTORY OF PRESENT ILLNESS: This is a 61-year-old right-handed female on disability. The patient was admitted to the Emergency Room on 12/07/2016 with abdominal pain, intermittent chest pain and weakness and some dysuria. She was noted with UTI with sepsis in the Emergency Room. The patient with known congestive heart failure, coronary artery disease, diabetes mellitus, hypertension, MRSA, renal failure, blind right eye, cholecystectomy, permanent pacemaker with pacemaker removal, and amputation of second toe. She had a defibrillator in place. ALLERGIES: SHE IS KNOWN ALLERGIC TO CELEBREX AND CIPRO. FAMILY HISTORY: Coronary artery disease. She lives with her . She had a cane and walker, but she does not use them usually. She notes that she had some balance problems. The patient had stairs with railing to climb at home. The patient complains of right-sided neck pain for about two weeks without any specific injury and she denies any radiation of pain to the extremities or any numbness and tingling sensation in the extremities or any trouble with her bladder control. She had no bowel movement for the last six days. The patient had radiological studies. Chest x-ray revealed generalized cardiomegaly appearing similar as before, probable superimposed mild congestive heart failure. CT scan of cervical spine revealed mild upper mediastinal and left subpectoral and supraclavicular adenopathy improved or stable from the previous study. There is a right occipital lobe infarct. I looked at the cervical spine, which revealed straightening of normal cervical curvature with mild bone spur at ages and slight narrowing of the disk space to some extent, the subcutaneous fat induration entered to the mid and medial left clavicle nonspecific. PHYSICAL EXAMINATION: Today revealed a middle-aged female. She is alert, oriented to time, place, person and circumstance and no significant pain on range of motion of her cervical spine. She had tenderness to palpation over right sternocleidomastoid muscle. The patient had 5/5 grade muscle strength in her extremities and deep tendon reflexes are 1 to 2+ and symmetrical with absent ankle jerks and she had equal perception of touch and pinprick sensation bilaterally. She is independent with bed mobility and transfers. She walks with somewhat wide-based gait. She had difficulty to try to walk on a straight line, one foot in front of other. Her skin is intact at this time. No significant cervical paraspinal muscle spasm was noted at this time. ASSESSMENT: Right sternocleidomastoid muscle strain with associated mild degenerative disk disease and degenerative joint disease of cervical vertebrae. No clinical evidence of cervical radiculopathy. The patient with diabetes mellitus with peripheral neuropathy, mild obesity, recent urinary tract infection, also history of coronary artery disease status post permanent pacemaker with defibrillator, but pacemaker was removed, the defibrillator distally in place, diabetes mellitus, hypertension, MRSA, renal failure, blindness in her right eye, cholecystectomy, and amputation of second toe. RECOMMENDATIONS: She had a defibrillator still in place. We can do MRI scan of her cervical vertebrae and I did not see any significant central spinal stenosis has per CT scan of her cervical spine. RECOMMENDATIONS: I have instructed her in a home program of physical modalities and trigger point massage and relax stretching exercise to her right. She had no mastoid muscle. She could not take any nonsteroidal anti-inflammatory medications secondary to renal failure, to let her try outpatient physical therapy and also anoxic medication and muscle relaxant medication on as needed basis home when medically stable with outpatient followup. Dr. Altamirano, I appreciate asking me to participate in the care of this interesting patient. I will be glad to follow her with you as needed for her rehabilitation. NANCIE FARFAN MD DR: JACE/king JOB#: [id number] / [id number] NEHAL Reyes MD
[2016-12-13 05:02] LABS: BASO % 1 % (0-3); EOS % 2 % (0-3); HEMATOCRIT 27.6 % (36.0-47.0); HEMOGLOBIN 9.1 g/dL (12.0-15.5); LYMPH # 1.3 x10^3/uL (1.0-4.8); LYMPH % 30 % (24-48); MEAN CORPUSCULAR HEMOGLOBIN 27 pg (25-35); MEAN CORPUSCULAR HGB CONC 33 g/dL (31-37); MEAN CORPUSCULAR VOLUME 82 fL (79-100); MONO % 14 % (0-9); NEUT % 53 % (31-73); PLATELET COUNT 185 x10^3/uL (140-400); RED BLOOD COUNT 3.36 x10^6/uL (3.50-5.40); RED CELL DISTRIBUTION WIDTH 17.1 % (11.5-14.5); WHITE BLOOD COUNT 4.2 x10^3/uL (4.0-11.0)
[2016-12-13 05:17] LABS: CALCIUM 8.7 mg/dL (8.5-10.1); CREATININE 1.8 mg/dL (0.6-1.0); GFR 34.7; PHOSPHORUS 3.7 mg/dL (2.6-4.7); POTASSIUM 4.8 mmol/L (3.5-5.1)
[2016-12-13] MEDS: HEPARIN PF for SUB-Q USE 5,000 UNIT/0.5 ML VIAL. SQ SCH ×3 (05:33→21:34)
[2016-12-13 07:00] VITALS: BP 117/72
[2016-12-13] MEDS: INSULIN ASPART 300 UNITS/3 ML INSULN.PEN SQ SCH ×6 (08:00→16:58)
[2016-12-13] MEDS: OXYBUTYNIN CHLORIDE 5 MG TABLET PO SCH (08:33)
[2016-12-13] MEDS: GABAPENTIN 300 MG CAPSULE. PO SCH ×3 (08:33→21:00)
[2016-12-13] MEDS: ASPIRIN CHEWABLE 81 MG TABLET. PO SCH (08:33)
[2016-12-13] MEDS: DOCUSATE SODIUM 100 MG CAPSULE. PO SCH ×2 (08:34→21:28)
[2016-12-13] MEDS: LOSARTAN POTASSIUM 25 MG TABLET. PO SCH (08:34)
[2016-12-13] MEDS: CYANOCOBALAMIN (VITAMIN B-12) 1,000 MCG TABLET. PO SCH (08:34)
[2016-12-13] MEDS: CARVEDILOL 3.125 MG TABLET. PO SCH ×2 (08:35→16:55)
[2016-12-13] MEDS: POLYETHYLENE GLYCOL 3350 17 GM PACKET. PO SCH ×2 (08:35→09:00)
--- NOTE | 2016-12-13 09:04 | PDOC ---
Infectious Disease Note Subjective Subjective Doing better this am Still c/o right shoulder and neck pain last night, relieved with pain med Constipated but still had small BN ROS ROS GEN: Denies fevers, chills, sweats HEENT: Denies blurred vision, sore throat CV: Denies chest pain RESP: Denies shortness of air, cough GI: Denies n/v/d NEURO: Denies confusion, dizziness MSK: Denies weakness, joint pain/swelling Vital Sign Vital Signs Vital Signs Date Time Temp Pulse Resp B/P (MAP) Pulse Ox O2 Delivery O2 Flow Rate FiO2 12/13/16 08:35 85 117/72 12/13/16 07:00 98.4 16 96 Nasal Cannula 1.0 98.4 Physical Exam PHYSICAL EXAM GENERAL: Propped up in bed NAD, Looks better HEENT: Oral mucosa is pink NECK: Supple. LUNGS: Clear to auscultation. HEART: Normal S1, S2. ABDOMEN: Obese, bowel sounds present, soft, nontender. EXTREMITIES: No gross edema or cyanosis. . Previous toe amp unremarkable SKIN: Without rash. Warm to touch.Neck without inflammation NEUROLOGIC: Alert and oriented x 3. RUE-PICC. (12/09). clean Labs Lab Laboratory Tests Test 12/12/16 11:02 12/12/16 16:53 12/12/16 20:29 12/13/16 04:30 Glucose (Fingerstick) 173 mg/dL (70-99) 132 mg/dL (70-99) 250 mg/dL (70-99) White Blood Count 4.2 x10^3/uL (4.0-11.0) Red Blood Count 3.36 x10^6/uL (3.50-5.40) Hemoglobin 9.1 g/dL (12.0-15.5) Hematocrit 27.6 % (36.0-47.0) Mean Corpuscular Volume 82 fL (79-100) Mean Corpuscular Hemoglobin 27 pg (25-35) Mean Corpuscular Hemoglobin Concent 33 g/dL (31-37) Red Cell Distribution Width 17.1 % (11.5-14.5) Platelet Count 185 x10^3/uL (140-400) Neutrophils (%) (Auto) 53 % (31-73) Lymphocytes (%) (Auto) 30 % (24-48) Monocytes (%) (Auto) 14 % (0-9) Eosinophils (%) (Auto) 2 % (0-3) Basophils (%) (Auto) 1 % (0-3) Neutrophils # (Auto) 2.3 x10^3uL (1.8-7.7) Lymphocytes # (Auto) 1.3 x10^3/uL (1.0-4.8) Monocytes # (Auto) 0.6 x10^3/uL (0.0-1.1) Eosinophils # (Auto) 0.1 x10^3/uL (0.0-0.7) Basophils # (Auto) 0.0 x10^3/uL (0.0-0.2) Sodium Level 135 mmol/L (136-145) Potassium Level 4.8 mmol/L (3.5-5.1) Chloride Level 103 mmol/L (98-107) Carbon Dioxide Level 25 mmol/L (21-32) Anion Gap 7 (6-14) Blood Urea Nitrogen 49 mg/dL (7-20) Creatinine 1.8 mg/dL (0.6-1.0) Estimated GFR (Cockcroft-Gault) 34.7 Glucose Level 211 mg/dL (70-99) Calcium Level 8.7 mg/dL (8.5-10.1) Phosphorus Level 3.7 mg/dL (2.6-4.7) Magnesium Level 2.2 mg/dL (1.8-2.4) Albumin 2.0 g/dL (3.4-5.0) Test 12/13/16 07:24 Glucose (Fingerstick) 169 mg/dL (70-99) Micro BLD CULT RESULT 1 Final Escherichia coli BLOOD CULTURE PRL Preliminary Preliminary report BLD CULT RESULT 1 Preliminary Escherichia coli Recovered from anaerobic bottle only. GROWTH IN 2 OF 2 SETS ANTIMICROBIAL SUSCEPTIBILITY Preliminary Comment S = Susceptible; I = Intermediate; R = Resistant P = Positive; N = Negative MICS are expressed in micrograms per mL Antibiotic RSLT#1 RSLT#2 RSLT#3 RSLT#4 Amoxicillin/Clavulanic Acid S Ampicillin R Cefepime S Ceftriaxone S Cefuroxime S Cephalothin I Ciprofloxacin S Ertapenem S Gentamicin S Imipenem S Levofloxacin S Nitrofurantoin S Piperacillin R Tetracycline R Tobramycin S Trimethoprim/Sulfa R URINE CULTURE RES 1 Final Escherichia coli Antibiotic RSLT#1 Amoxicillin/Clavulanic Acid S Ampicillin S Cefepime S Ceftriaxone S Cefuroxime S Cephalothin S Ciprofloxacin S Ertapenem S Gentamicin S Imipenem S Levofloxacin S Nitrofurantoin S Piperacillin S Tetracycline S Tobramycin S Trimethoprim/Sulfa S Objective Assessment E. coli sepsis, POA. (12/07) E. coli UTI, POA Constipation Cipro allergy, unknown reaction CKD Diabetes Chronic systolic heart failure Recent left 2nd toe infection s/p partial amputation, healed. h/o MRSA Recent h/o NSTEMI Neck pain for 2 weeks - CT reviewed - d/w Dr. Morelos Plan Plan of Care Dose Rocephin now - Can d/c home with po Cefpodoxime BID to start 12/14 for 4 days Relieve constipation further CHELI GROSSMAN MD Dec 13, 2016 09:04
[2016-12-13] MEDS ORDERED: IOHEXOL 240 MG/ML 50ML VIAL. PO ONE (09:45)
--- NOTE | 2016-12-13 10:03 | PDOC ---
PROGRESS NOTES Subjective Subjective She admits continued pain right side of her neck. Objective Objective Vital Signs Date Time Temp Pulse Resp B/P (MAP) Pulse Ox O2 Delivery O2 Flow Rate FiO2 12/13/16 08:35 85 117/72 12/13/16 07:00 98.4 16 96 Nasal Cannula 1.0 98.4 Intake and Output 12/13/16 06:59 Intake Total 480 ml Balance 480 ml Intake Oral 480 ml # Voids 5 # Bowel Movements 1 Physical Exam Physical Exam She is alert and in no acute distress and tenderness to palpation over right sternomastoid muscle. She continues with wide based gait. Assessment Assessment Problems Medical Problems: (1) Elevated troponin Status: Acute (2) Renal insufficiency Status: Acute (3) Sepsis Status: Acute (4) Urinary tract infection Status: Acute Plan Plan of [place] when medically stable with home health or out patient physical therapy follow up. Comment Review of Relevant I have reviewed the following items bro (where applicable) has been applied. Labs Laboratory Tests Test 12/11/16 11:20 12/11/16 16:20 12/11/16 21:16 12/12/16 05:17 Glucose (Fingerstick) 151 mg/dL (70-99) 105 mg/dL (70-99) 94 mg/dL (70-99) White Blood Count 4.8 x10^3/uL (4.0-11.0) Red Blood Count 3.30 x10^6/uL (3.50-5.40) Hemoglobin 8.8 g/dL (12.0-15.5) Hematocrit 27.4 % (36.0-47.0) Mean Corpuscular Volume 83 fL (79-100) Mean Corpuscular Hemoglobin 27 pg (25-35) Mean Corpuscular Hemoglobin Concent 32 g/dL (31-37) Red Cell Distribution Width 17.3 % (11.5-14.5) Platelet Count 175 x10^3/uL (140-400) Neutrophils (%) (Auto) 59 % (31-73) Lymphocytes (%) (Auto) 26 % (24-48) Monocytes (%) (Auto) 13 % (0-9) Eosinophils (%) (Auto) 2 % (0-3) Basophils (%) (Auto) 0 % (0-3) Neutrophils # (Auto) 2.8 x10^3uL (1.8-7.7) Lymphocytes # (Auto) 1.2 x10^3/uL (1.0-4.8) Monocytes # (Auto) 0.6 x10^3/uL (0.0-1.1) Eosinophils # (Auto) 0.1 x10^3/uL (0.0-0.7) Basophils # (Auto) 0.0 x10^3/uL (0.0-0.2) Sodium Level 134 mmol/L (136-145) Potassium Level 4.7 mmol/L (3.5-5.1) Chloride Level 104 mmol/L (98-107) Carbon Dioxide Level 23 mmol/L (21-32) Anion Gap 7 (6-14) Blood Urea Nitrogen 49 mg/dL (7-20) Creatinine 2.1 mg/dL (0.6-1.0) Estimated GFR (Cockcroft-Gault) 29.1 Glucose Level 151 mg/dL (70-99) Calcium Level 8.9 mg/dL (8.5-10.1) Phosphorus Level 3.8 mg/dL (2.6-4.7) Magnesium Level 2.2 mg/dL (1.8-2.4) Albumin 2.0 g/dL (3.4-5.0) Test 12/12/16 07:30 12/12/16 11:02 12/12/16 16:53 12/12/16 20:29 Glucose (Fingerstick) 131 mg/dL (70-99) 173 mg/dL (70-99) 132 mg/dL (70-99) 250 mg/dL (70-99) Test 12/13/16 04:30 12/13/16 07:24 White Blood Count 4.2 x10^3/uL (4.0-11.0) Red Blood Count 3.36 x10^6/uL (3.50-5.40) Hemoglobin 9.1 g/dL (12.0-15.5) Hematocrit 27.6 % (36.0-47.0) Mean Corpuscular Volume 82 fL (79-100) Mean Corpuscular Hemoglobin 27 pg (25-35) Mean Corpuscular Hemoglobin Concent 33 g/dL (31-37) Red Cell Distribution Width 17.1 % (11.5-14.5) Platelet Count 185 x10^3/uL (140-400) Neutrophils (%) (Auto) 53 % (31-73) Lymphocytes (%) (Auto) 30 % (24-48) Monocytes (%) (Auto) 14 % (0-9) Eosinophils (%) (Auto) 2 % (0-3) Basophils (%) (Auto) 1 % (0-3) Neutrophils # (Auto) 2.3 x10^3uL (1.8-7.7) Lymphocytes # (Auto) 1.3 x10^3/uL (1.0-4.8) Monocytes # (Auto) 0.6 x10^3/uL (0.0-1.1) Eosinophils # (Auto) 0.1 x10^3/uL (0.0-0.7) Basophils # (Auto) 0.0 x10^3/uL (0.0-0.2) Sodium Level 135 mmol/L (136-145) Potassium Level 4.8 mmol/L (3.5-5.1) Chloride Level 103 mmol/L (98-107) Carbon Dioxide Level 25 mmol/L (21-32) Anion Gap 7 (6-14) Blood Urea Nitrogen 49 mg/dL (7-20) Creatinine 1.8 mg/dL (0.6-1.0) Estimated GFR (Cockcroft-Gault) 34.7 Glucose Level 211 mg/dL (70-99) Calcium Level 8.7 mg/dL (8.5-10.1) Phosphorus Level 3.7 mg/dL (2.6-4.7) Magnesium Level 2.2 mg/dL (1.8-2.4) Albumin 2.0 g/dL (3.4-5.0) Glucose (Fingerstick) 169 mg/dL (70-99) Laboratory Tests Test 12/12/16 11:02 12/12/16 16:53 12/12/16 20:29 12/13/16 04:30 Glucose (Fingerstick) 173 mg/dL (70-99) 132 mg/dL (70-99) 250 mg/dL (70-99) White Blood Count 4.2 x10^3/uL (4.0-11.0) Red Blood Count 3.36 x10^6/uL (3.50-5.40) Hemoglobin 9.1 g/dL (12.0-15.5) Hematocrit 27.6 % (36.0-47.0) Mean Corpuscular Volume 82 fL (79-100) Mean Corpuscular Hemoglobin 27 pg (25-35) Mean Corpuscular Hemoglobin Concent 33 g/dL (31-37) Red Cell Distribution Width 17.1 % (11.5-14.5) Platelet Count 185 x10^3/uL (140-400) Neutrophils (%) (Auto) 53 % (31-73) Lymphocytes (%) (Auto) 30 % (24-48) Monocytes (%) (Auto) 14 % (0-9) Eosinophils (%) (Auto) 2 % (0-3) Basophils (%) (Auto) 1 % (0-3) Neutrophils # (Auto) 2.3 x10^3uL (1.8-7.7) Lymphocytes # (Auto) 1.3 x10^3/uL (1.0-4.8) Monocytes # (Auto) 0.6 x10^3/uL (0.0-1.1) Eosinophils # (Auto) 0.1 x10^3/uL (0.0-0.7) Basophils # (Auto) 0.0 x10^3/uL (0.0-0.2) Sodium Level 135 mmol/L (136-145) Potassium Level 4.8 mmol/L (3.5-5.1) Chloride Level 103 mmol/L (98-107) Carbon Dioxide Level 25 mmol/L (21-32) Anion Gap 7 (6-14) Blood Urea Nitrogen 49 mg/dL (7-20) Creatinine 1.8 mg/dL (0.6-1.0) Estimated GFR (Cockcroft-Gault) 34.7 Glucose Level 211 mg/dL (70-99) Calcium Level 8.7 mg/dL (8.5-10.1) Phosphorus Level 3.7 mg/dL (2.6-4.7) Magnesium Level 2.2 mg/dL (1.8-2.4) Albumin 2.0 g/dL (3.4-5.0) Test 12/13/16 07:24 Glucose (Fingerstick) 169 mg/dL (70-99) Microbiology 12/07/16 Blood Culture - Final, Complete 12/07/16 Blood Culture Result 1 (TANJA) - Final, Complete 12/07/16 Urine Culture - Final, Complete 12/07/16 Urine Culture Result 1 (TANJA) - Final, Complete 12/07/16 Antimicrobic Susceptibility - Final, Complete Medications Current Medications Sodium Chloride 1,000 ml @ 430 mls/hr Q2H20M IV Last administered on 13:06; Start 12/07/16 at 10:46; Stop 12/07/16 at 16:31; Status DC Ceftriaxone Sodium 50 ml @ 100 mls/hr 1X ONCE IV Last administered on 12:03; Start 12/07/16 at 12:00; Stop 12/07/16 at 12:29; Status DC Ondansetron HCl (Zofran) 4 mg PRN Q8HRS PRN IV NAUSEA/VOMITING; Start 12/07/16 at 13:00; Stop 12/08/16 at 12:59; Status DC Fentanyl Citrate (Fentanyl 2ml Vial) 50 mcg PRN Q2HR PRN IV PAIN; Start at 13:00; Stop 12/08/16 at 12:59; Status DC Sodium Chloride 1,000 ml @ 100 mls/hr Q10H IV Last administered on 12/08/16 08:20; Start 12/07/16 at 12:50; Stop 12/08/16 at 12:33; Status DC Acetaminophen (Tylenol) 650 mg PRN Q4HRS PRN PO FEVER; Start 12/07/16 at 13:00 ; Stop 12/08/16 at 12:59; Status DC Ceftriaxone Sodium 1 gm/ Sodium Chloride 50 ml @ 100 mls/hr Q24H IV ; Start at 13:00; Stop 12/08/16 at 23:24; Status DC Aspirin (Children'S Aspirin) 81 mg DAILY08 PO Last administered on 12/13/16 08 :33; Start 12/07/16 at 16:30 Carvedilol (Coreg) 3.125 mg BIDWMEALS PO Last administered on 12/13/16 08:35; Start 12/07/16 at 17:00 Furosemide (Lasix) 20 mg BID94 PO Last administered on 12/11/16 08:39; Start 12/07/16 at 16:30; Stop 12/11/16 at 09:24; Status DC Losartan Potassium (Cozaar) 50 mg DAILY PO Last administered on 12/10/16 09:04 ; Start 12/07/16 at 16:30; Stop 12/10/16 at 13:16; Status DC Darbepoetin Joey (Aranesp) 60 mcg Th SQ Last administered on 12/08/16 21:00; Start 12/08/16 at 21:00 Magnesium Sulfate/ Dextrose 50 ml @ 25 mls/hr PRN DAILY PRN IV for Mag < 1.7 on am labs; Start 12/08/16 at 10:45 Cyanocobalamin (Vitamin B-12) 500 mcg DAILY PO Last administered on 12/13/16 08:34; Start 12/09/16 at 09:00 Cyclobenzaprine HCl (Flexeril) 10 mg QHS PO Last administered on 12/12/16 20: 26; Start 12/08/16 at 22:00 Docusate Sodium (Colace) 100 mg BID PO Last administered on 12/13/16 08:34; Start 12/08/16 at 22:00 Estrogens Conjugated (Premarin) 1 kristal 3X/WEEK VG ; Start 12/09/16 at 09:00 Metformin HCl (Glucophage) 1,000 mg BID PO ; Start 12/09/16 at 09:00; Status UNV Polyethylene Glycol (miraLAX PACKET) 17 gm DAILY PO Last administered on 08:35; Start 12/09/16 at 09:00 Gabapentin (Neurontin) 600 mg TID PO Last administered on 12/13/16 08:33; Start 12/08/16 at 22:00 Insulin Aspart (NovoLOG) 3 units TIDAC SQ Last administered on 12/10/16 11:26 ; Start 12/09/16 at 07:30; Stop 12/10/16 at 16:58; Status DC Insulin Detemir (Levemir) 25 units QHS SQ Last administered on 12/10/16 00:05 ; Start 12/08/16 at 22:00; Stop 12/10/16 at 16:58; Status DC Oxybutynin Chloride (Ditropan) 5 mg DAILY PO Last administered on 12/13/16 08: 33; Start 12/09/16 at 09:00 Acetaminophen/ Hydrocodone Bitart (Lortab 5/325) 1 tab PRN Q6HRS PRN PO PAIN Last administered on 12/12/16 22:30; Start 12/08/16 at 21:45 Insulin Aspart (NovoLOG) 0-9 UNITS TIDWMEALS SQ Last administered on 12/13/16 08:00; Start 12/09/16 at 08:00 Dextrose (Dextrose 50%-Water Syringe) 12.5 gm PRN Q15MIN PRN IV SEE COMMENTS Last administered on 12/10/16 16:14; Start 12/08/16 at 21:45 Trimethoprim/ Sulfamethoxazole (Bactrim Ds) 1 tab BID76 PO Last administered on 12/09/16 06:35; Start 12/09/16 at 07:00; Stop 12/09/16 at 13:33; Status DC Ceftriaxone Sodium 2 gm/ Sodium Chloride 100 ml @ 200 mls/hr Q24H IV Last administered on 12/12/16 14:55; Start 12/09/16 at 14:00; Stop 12/13/16 at 09:00 ; Status DC Lidocaine/Sodium Bicarbonate (Buffered Lidocaine 1%) 20 ml STK-MED ONCE IJ ; Start 12/09/16 at 14:19; Stop 12/09/16 at 14:20; Status DC Heparin Sodium/ Sodium Chloride 500 ml @ As Directed STK-MED ONCE .ROUTE ; Start 12/09/16 at 14:19; Stop 12/09/16 at 14:20; Status DC Lidocaine/Sodium Bicarbonate (Buffered Lidocaine 1%) 20 ml 1X ONCE IJ Last administered on 12/09/16 14:32; Start 12/09/16 at 14:30; Stop 12/09/16 at 14:31 ; Status DC Heparin Sodium/ Sodium Chloride 60 unit 1X ONCE IV Last administered on 14:32; Start 12/09/16 at 14:30; Stop 12/09/16 at 14:31; Status DC Losartan Potassium (Cozaar) 25 mg DAILY PO Last administered on 12/13/16 08:34 ; Start 12/11/16 at 09:00 Insulin Aspart (NovoLOG) 1 units TIDAC SQ Last administered on 12/13/16 08:43 ; Start 12/11/16 at 07:30 Insulin Detemir (Levemir) 6 units QHS SQ Last administered on 12/12/16 20:31; Start 12/10/16 at 21:00 Magnesium Sulfate/ Dextrose 50 ml @ 25 mls/hr PRN DAILY PRN IV for Mag < 1.7 on am labs; Start 12/11/16 at 09:30; Status UNV Polyethylene Glycol (miraLAX PACKET) 17 gm 1X ONCE PO Last administered on 12:09; Start 12/11/16 at 09:30; Stop 12/11/16 at 09:31; Status DC Polyethylene Glycol (miraLAX PACKET) 17 gm PRN DAILY PRN PO CONSTIPATION; Start 12/11/16 at 09:30 Polyethylene Glycol (miraLAX PACKET) 17 gm DAILY PO Last administered on 14:54; Start 12/12/16 at 09:45 Acetaminophen (Tylenol) 650 mg PRN Q6HRS PRN PO FEVER; Start 12/12/16 at 11:30 Ondansetron HCl (Zofran) 4 mg PRN Q6HRS PRN IV NAUSEA/VOMITING; Start 12/12/16 at 11:30 Morphine Sulfate 2 mg PRN Q2HR PRN IV PAIN; Start 12/12/16 at 11:30 Tramadol HCl (Ultram) 50 mg PRN Q6HRS PRN PO PAIN; Start 12/12/16 at 11:30 Hydralazine HCl (Apresoline) 10 mg PRN Q4HRS PRN IVP ELEVATED BP, SEE COMMENTS ; Start 12/12/16 at 11:30 Docusate Sodium (Colace) 100 mg PRN DAILY PRN PO CONSTIPATION; Start 12/12/16 at 11:30 Docusate Sodium (Colace) 100 mg BID PO ; Start 12/12/16 at 12:00; Status UNV Magnesium Hydroxide (Milk Of Magnesia) 2,400 mg PRN Q12HR PRN PO CONSTIPATION; Start 12/12/16 at 11:30 Lactulose 20 gm PRN Q12HR PRN PO CONSTIPATION; Start 12/12/16 at 11:30 Heparin Sodium (Porcine) (Heparin Sq) 5,000 unit Q8HRS SQ Last administered on 6/27/17at 05:33; Start 12/12/16 at 14:00 Ceftriaxone Sodium 2 gm/ Sodium Chloride 100 ml @ 200 mls/hr ONCE ONCE IV ; Start 12/13/16 at 09:00; Stop 12/13/16 at 09:29; Status DC Iohexol (Omnipaque 240 Mg/ml) 30 ml 1X ONCE PO ; Start 12/13/16 at 09:45; Stop 12/13/16 at 09:50; Status DC Active Scripts Active Miralax (Polyethylene Glycol 3350) 17 Gm Powd.pack 17 Packet PO DAILY Colace (Docusate Sodium) 100 Mg Capsule 1 Cap PO BID [Hydrocodone/Acetaminophen] 1 TAB Tablet 1 Tab PO PRN Q6HRS PRN Reported Losartan Potassium 50 Mg Tablet 50 Mg PO DAILY Furosemide 20 Mg Tablet 20 Mg PO BID Coreg (Carvedilol) 3.125 Mg Tablet 1 Tab PO BID Premarin (Estrogens, Conjugated) 30 Gm Cream.appl 1 Kristal VG 3X/WEEK Cyclobenzaprine Hcl 10 Mg Tablet 1 Tab PO QHS Oxybutynin Chloride Er (Oxybutynin Chloride) 5 Mg Tab.er.24 1 Tab PO DAILY Gabapentin 300 Mg Capsule 600 Mg PO TID Vitamin B-12 (Cyanocobalamin (Vitamin B-12)) 1,000 Mcg Tablet 500 Mcg PO DAILY Lantus Solostar (Insulin Glargine,Hum.rec.anlog) 100 Unit/1 Ml Insuln.pen 25 Unit SQ QHS Novolog (Insulin Aspart) 100 Unit/1 Ml Cartridge 3 Unit SQ TIDAC Aspirin 81 Mg Tab.chew 81 Mg PO Metformin Hcl 500 Mg Tablet 1,000 Mg PO BID Calcium Citrate - Vit D3 Tab (Calcium Citrate/Vitamin D3) 1 Each Tablet 1 Each PO Vitals/I & O Vital Sign - Last 24 Hours 12/12/16 12/12/16 12/12/16 12/12/16 10:54 14:58 17:27 19:00 Temp 98.2 97.9 98.0 98.2 97.9 98.0 Pulse 88 88 91 84 Resp 17 B/P (MAP) 103/60 (74) 90/52 (65) 120/77 102/59 (73) Pulse Ox 96 96 O2 Delivery Room Air Room Air Room Air 12/12/16 12/12/16 12/12/16 12/13/16 22:30 22:55 23:31 07:00 Temp 97.8 98.4 97.8 98.4 Pulse 93 85 Resp 20 16 16 B/P (MAP) 137/86 (103) 117/72 (87) Pulse Ox 84 99 96 O2 Delivery Room Air Room Air Nasal Cannula Nasal Cannula O2 Flow Rate 2.0 1.0 12/13/16 12/13/16 08:34 08:35 Pulse 85 85 B/P (MAP) 117/72 117/72 Intake and Output 12/12/16 12/12/16 12/13/16 14:59 22:59 06:59 Intake Total 360 ml 120 ml Balance 360 ml 120 ml NANCIE FARFAN MD Dec 13, 2016 10:03
--- NOTE | 2016-12-13 10:38 | RAD ---
Indication: Shortness of breath. Time of exam 10:17 AM Correlation is made with prior study 1 day earlier. The right upper extremity PICC line remains in place. The heart is enlarged. No infiltrate or failure is detected. No effusion or pneumothorax is seen. Impression: No acute feature identified.
[2016-12-13 10:40] VITALS: BP 90/60
--- NOTE | 2016-12-13 10:51 | PDOC ---
Renal-Progress Notes Subjective Notes Notes NONE History of Present Illness Hx of present illness NO CHANGE Vitals Vitals Vital Signs Date Time Temp Pulse Resp B/P (MAP) Pulse Ox O2 Delivery O2 Flow Rate FiO2 12/13/16 10:40 97.9 85 16 90/60 (70) 94 Room Air 97.9 12/13/16 07:00 1.0 Weight Weight [ ] I.O. Intake and Output Intake and Output 12/13/16 06:59 Intake Total 480 ml Balance 480 ml Intake Oral 480 ml # Voids 5 # Bowel Movements 1 Labs Labs Laboratory Tests Test 12/12/16 11:02 12/12/16 16:53 12/12/16 20:29 12/13/16 04:30 Glucose (Fingerstick) 173 mg/dL (70-99) 132 mg/dL (70-99) 250 mg/dL (70-99) White Blood Count 4.2 x10^3/uL (4.0-11.0) Red Blood Count 3.36 x10^6/uL (3.50-5.40) Hemoglobin 9.1 g/dL (12.0-15.5) Hematocrit 27.6 % (36.0-47.0) Mean Corpuscular Volume 82 fL (79-100) Mean Corpuscular Hemoglobin 27 pg (25-35) Mean Corpuscular Hemoglobin Concent 33 g/dL (31-37) Red Cell Distribution Width 17.1 % (11.5-14.5) Platelet Count 185 x10^3/uL (140-400) Neutrophils (%) (Auto) 53 % (31-73) Lymphocytes (%) (Auto) 30 % (24-48) Monocytes (%) (Auto) 14 % (0-9) Eosinophils (%) (Auto) 2 % (0-3) Basophils (%) (Auto) 1 % (0-3) Neutrophils # (Auto) 2.3 x10^3uL (1.8-7.7) Lymphocytes # (Auto) 1.3 x10^3/uL (1.0-4.8) Monocytes # (Auto) 0.6 x10^3/uL (0.0-1.1) Eosinophils # (Auto) 0.1 x10^3/uL (0.0-0.7) Basophils # (Auto) 0.0 x10^3/uL (0.0-0.2) Sodium Level 135 mmol/L (136-145) Potassium Level 4.8 mmol/L (3.5-5.1) Chloride Level 103 mmol/L (98-107) Carbon Dioxide Level 25 mmol/L (21-32) Anion Gap 7 (6-14) Blood Urea Nitrogen 49 mg/dL (7-20) Creatinine 1.8 mg/dL (0.6-1.0) Estimated GFR (Cockcroft-Gault) 34.7 Glucose Level 211 mg/dL (70-99) Calcium Level 8.7 mg/dL (8.5-10.1) Phosphorus Level 3.7 mg/dL (2.6-4.7) Magnesium Level 2.2 mg/dL (1.8-2.4) Albumin 2.0 g/dL (3.4-5.0) Test 12/13/16 07:24 Glucose (Fingerstick) 169 mg/dL (70-99) Micro Micro Microbiology 12/07/16 Blood Culture - Final, Complete 12/07/16 Blood Culture Result 1 (TANJA) - Final, Complete 12/07/16 Urine Culture - Final, Complete 12/07/16 Urine Culture Result 1 (TANJA) - Final, Complete 12/07/16 Antimicrobic Susceptibility - Final, Complete Review of Systems Constitutional: yes: no symptom reported Physical Exam General Appearance: no apparent distress Skin: warm Respiratory: bilateral CTA Heart: S1S2, RRR Genitourinary: bladder flat Extremities: atrophy Musculoskeletal: Other (osteomyelitis ) Assessment Assessment IMP E COLI UTI E COLI SEPSIS CM WITH EF OF 20% CKD STAGE 3 TO 4 WITH STABLE CR AT 1.8 PLAN ANTIBIOTICS SUPPORTIVE CARE LABS IN [place]OROTHEA DELEON MD Dec 13, 2016 10:51
--- NOTE | 2016-12-13 11:26 | RAD ---
Indication: Left lower quadrant pain. Axial imaging through the abdomen and pelvis was performed without intravenous contrast. Patient was administered oral contrast. Comparison is made with prior CT from 10/13/2016. There are trace bilateral pleural effusions. The heart is enlarged. The liver is unremarkable. The gallbladder is surgically absent. The pancreas and spleen are unremarkable. No adrenal mass is detected. No renal calculi are identified. The aorta is nonaneurysmal. The bowel loops are normal caliber. There is a large amount of stool within the colon consistent with constipation. Small bowel loops are unremarkable. The bladder is unremarkable. No acute inflammatory process is detected. Impression: 1. Trace bilateral pleural effusions. 2. Findings suggestive of constipation. No other significant abnormality is identified.
--- NOTE | 2016-12-13 11:48 | PDOC ---
PROGRESS NOTES Chief Complaint Chief Complaint Urinary tract infection with Ecoli Sepsis with UTI E Coli bacteremia neck pain, 2/2 muscle spasm likely dm2 ckd4 constipation h/o recent NTEMI With ICD HTN acute resp failure hypoxia plan: fu with ID, on ceftriaxone dr. Morelos consult for neck pain, PTOT ADD stool softner CHECK AXR, ruled out obstruction Check ABD CT w po contrast showed constipation. check CXR dvt ppx History of Present Illness History of Present Illness constipation for 6ds, 1 small BM 12/12 still LLQ abd pain, BM helped a little bit Cr stable 1.8 tired right shoulder , neck pain with tenderness no sob but desat to 80s if off o2 yesterday Vitals Vitals Vital Signs Date Time Temp Pulse Resp B/P (MAP) Pulse Ox O2 Delivery O2 Flow Rate FiO2 12/13/16 10:40 97.9 85 16 90/60 (70) 94 Room Air 97.9 12/13/16 07:00 1.0 Physical Exam Physical Exam right shoulder tenderness General: Alert, Oriented X3, Cooperative, No acute distress Heart: Regular rate, Other (3/6 systolic murmur ) Lungs: Clear, Other Abdomen: Soft, Other (LLQ mild tenderness) Extremities: No clubbing, No edema, Normal pulses Skin: No rashes, No breakdown, No significant lesion Labs LABS Laboratory Tests Test 12/12/16 16:53 12/12/16 20:29 12/13/16 04:30 12/13/16 07:24 Glucose (Fingerstick) 132 mg/dL (70-99) 250 mg/dL (70-99) 169 mg/dL (70-99) White Blood Count 4.2 x10^3/uL (4.0-11.0) Red Blood Count 3.36 x10^6/uL (3.50-5.40) Hemoglobin 9.1 g/dL (12.0-15.5) Hematocrit 27.6 % (36.0-47.0) Mean Corpuscular Volume 82 fL (79-100) Mean Corpuscular Hemoglobin 27 pg (25-35) Mean Corpuscular Hemoglobin Concent 33 g/dL (31-37) Red Cell Distribution Width 17.1 % (11.5-14.5) Platelet Count 185 x10^3/uL (140-400) Neutrophils (%) (Auto) 53 % (31-73) Lymphocytes (%) (Auto) 30 % (24-48) Monocytes (%) (Auto) 14 % (0-9) Eosinophils (%) (Auto) 2 % (0-3) Basophils (%) (Auto) 1 % (0-3) Neutrophils # (Auto) 2.3 x10^3uL (1.8-7.7) Lymphocytes # (Auto) 1.3 x10^3/uL (1.0-4.8) Monocytes # (Auto) 0.6 x10^3/uL (0.0-1.1) Eosinophils # (Auto) 0.1 x10^3/uL (0.0-0.7) Basophils # (Auto) 0.0 x10^3/uL (0.0-0.2) Sodium Level 135 mmol/L (136-145) Potassium Level 4.8 mmol/L (3.5-5.1) Chloride Level 103 mmol/L (98-107) Carbon Dioxide Level 25 mmol/L (21-32) Anion Gap 7 (6-14) Blood Urea Nitrogen 49 mg/dL (7-20) Creatinine 1.8 mg/dL (0.6-1.0) Estimated GFR (Cockcroft-Gault) 34.7 Glucose Level 211 mg/dL (70-99) Calcium Level 8.7 mg/dL (8.5-10.1) Phosphorus Level 3.7 mg/dL (2.6-4.7) Magnesium Level 2.2 mg/dL (1.8-2.4) Albumin 2.0 g/dL (3.4-5.0) Test 12/13/16 11:22 Glucose (Fingerstick) 199 mg/dL (70-99) Review of Systems Review of Systems no fever, chills, sob or chest pain Assessment and Plan Assessmemt and Plan Problems Medical Problems: (1) Elevated troponin Status: Acute (2) Renal insufficiency Status: Acute (3) Sepsis Status: Acute (4) Urinary tract infection Status: Acute Problems: Comment Review of Relevant I have reviewed the following items bro (where applicable) has been applied. Labs Laboratory Tests Test 12/11/16 16:20 12/11/16 21:16 12/12/16 05:17 12/12/16 07:30 Glucose (Fingerstick) 105 mg/dL (70-99) 94 mg/dL (70-99) 131 mg/dL (70-99) White Blood Count 4.8 x10^3/uL (4.0-11.0) Red Blood Count 3.30 x10^6/uL (3.50-5.40) Hemoglobin 8.8 g/dL (12.0-15.5) Hematocrit 27.4 % (36.0-47.0) Mean Corpuscular Volume 83 fL (79-100) Mean Corpuscular Hemoglobin 27 pg (25-35) Mean Corpuscular Hemoglobin Concent 32 g/dL (31-37) Red Cell Distribution Width 17.3 % (11.5-14.5) Platelet Count 175 x10^3/uL (140-400) Neutrophils (%) (Auto) 59 % (31-73) Lymphocytes (%) (Auto) 26 % (24-48) Monocytes (%) (Auto) 13 % (0-9) Eosinophils (%) (Auto) 2 % (0-3) Basophils (%) (Auto) 0 % (0-3) Neutrophils # (Auto) 2.8 x10^3uL (1.8-7.7) Lymphocytes # (Auto) 1.2 x10^3/uL (1.0-4.8) Monocytes # (Auto) 0.6 x10^3/uL (0.0-1.1) Eosinophils # (Auto) 0.1 x10^3/uL (0.0-0.7) Basophils # (Auto) 0.0 x10^3/uL (0.0-0.2) Sodium Level 134 mmol/L (136-145) Potassium Level 4.7 mmol/L (3.5-5.1) Chloride Level 104 mmol/L (98-107) Carbon Dioxide Level 23 mmol/L (21-32) Anion Gap 7 (6-14) Blood Urea Nitrogen 49 mg/dL (7-20) Creatinine 2.1 mg/dL (0.6-1.0) Estimated GFR (Cockcroft-Gault) 29.1 Glucose Level 151 mg/dL (70-99) Calcium Level 8.9 mg/dL (8.5-10.1) Phosphorus Level 3.8 mg/dL (2.6-4.7) Magnesium Level 2.2 mg/dL (1.8-2.4) Albumin 2.0 g/dL (3.4-5.0) Test 12/12/16 11:02 12/12/16 16:53 12/12/16 20:29 12/13/16 04:30 Glucose (Fingerstick) 173 mg/dL (70-99) 132 mg/dL (70-99) 250 mg/dL (70-99) White Blood Count 4.2 x10^3/uL (4.0-11.0) Red Blood Count 3.36 x10^6/uL (3.50-5.40) Hemoglobin 9.1 g/dL (12.0-15.5) Hematocrit 27.6 % (36.0-47.0) Mean Corpuscular Volume 82 fL (79-100) Mean Corpuscular Hemoglobin 27 pg (25-35) Mean Corpuscular Hemoglobin Concent 33 g/dL (31-37) Red Cell Distribution Width 17.1 % (11.5-14.5) Platelet Count 185 x10^3/uL (140-400) Neutrophils (%) (Auto) 53 % (31-73) Lymphocytes (%) (Auto) 30 % (24-48) Monocytes (%) (Auto) 14 % (0-9) Eosinophils (%) (Auto) 2 % (0-3) Basophils (%) (Auto) 1 % (0-3) Neutrophils # (Auto) 2.3 x10^3uL (1.8-7.7) Lymphocytes # (Auto) 1.3 x10^3/uL (1.0-4.8) Monocytes # (Auto) 0.6 x10^3/uL (0.0-1.1) Eosinophils # (Auto) 0.1 x10^3/uL (0.0-0.7) Basophils # (Auto) 0.0 x10^3/uL (0.0-0.2) Sodium Level 135 mmol/L (136-145) Potassium Level 4.8 mmol/L (3.5-5.1) Chloride Level 103 mmol/L (98-107) Carbon Dioxide Level 25 mmol/L (21-32) Anion Gap 7 (6-14) Blood Urea Nitrogen 49 mg/dL (7-20) Creatinine 1.8 mg/dL (0.6-1.0) Estimated GFR (Cockcroft-Gault) 34.7 Glucose Level 211 mg/dL (70-99) Calcium Level 8.7 mg/dL (8.5-10.1) Phosphorus Level 3.7 mg/dL (2.6-4.7) Magnesium Level 2.2 mg/dL (1.8-2.4) Albumin 2.0 g/dL (3.4-5.0) Test 12/13/16 07:24 12/13/16 11:22 Glucose (Fingerstick) 169 mg/dL (70-99) 199 mg/dL (70-99) Laboratory Tests Test 12/12/16 16:53 12/12/16 20:29 12/13/16 04:30 12/13/16 07:24 Glucose (Fingerstick) 132 mg/dL (70-99) 250 mg/dL (70-99) 169 mg/dL (70-99) White Blood Count 4.2 x10^3/uL (4.0-11.0) Red Blood Count 3.36 x10^6/uL (3.50-5.40) Hemoglobin 9.1 g/dL (12.0-15.5) Hematocrit 27.6 % (36.0-47.0) Mean Corpuscular Volume 82 fL (79-100) Mean Corpuscular Hemoglobin 27 pg (25-35) Mean Corpuscular Hemoglobin Concent 33 g/dL (31-37) Red Cell Distribution Width 17.1 % (11.5-14.5) Platelet Count 185 x10^3/uL (140-400) Neutrophils (%) (Auto) 53 % (31-73) Lymphocytes (%) (Auto) 30 % (24-48) Monocytes (%) (Auto) 14 % (0-9) Eosinophils (%) (Auto) 2 % (0-3) Basophils (%) (Auto) 1 % (0-3) Neutrophils # (Auto) 2.3 x10^3uL (1.8-7.7) Lymphocytes # (Auto) 1.3 x10^3/uL (1.0-4.8) Monocytes # (Auto) 0.6 x10^3/uL (0.0-1.1) Eosinophils # (Auto) 0.1 x10^3/uL (0.0-0.7) Basophils # (Auto) 0.0 x10^3/uL (0.0-0.2) Sodium Level 135 mmol/L (136-145) Potassium Level 4.8 mmol/L (3.5-5.1) Chloride Level 103 mmol/L (98-107) Carbon Dioxide Level 25 mmol/L (21-32) Anion Gap 7 (6-14) Blood Urea Nitrogen 49 mg/dL (7-20) Creatinine 1.8 mg/dL (0.6-1.0) Estimated GFR (Cockcroft-Gault) 34.7 Glucose Level 211 mg/dL (70-99) Calcium Level 8.7 mg/dL (8.5-10.1) Phosphorus Level 3.7 mg/dL (2.6-4.7) Magnesium Level 2.2 mg/dL (1.8-2.4) Albumin 2.0 g/dL (3.4-5.0) Test 12/13/16 11:22 Glucose (Fingerstick) 199 mg/dL (70-99) Microbiology 12/07/16 Blood Culture - Final, Complete 12/07/16 Blood Culture Result 1 (TANJA) - Final, Complete 12/07/16 Urine Culture - Final, Complete 12/07/16 Urine Culture Result 1 (TANJA) - Final, Complete 12/07/16 Antimicrobic Susceptibility - Final, Complete Medications Current Medications Sodium Chloride 1,000 ml @ 430 mls/hr Q2H20M IV Last administered on 13:06; Start 12/07/16 at 10:46; Stop 12/07/16 at 16:31; Status DC Ceftriaxone Sodium 50 ml @ 100 mls/hr 1X ONCE IV Last administered on 12:03; Start 12/07/16 at 12:00; Stop 12/07/16 at 12:29; Status DC Ondansetron HCl (Zofran) 4 mg PRN Q8HRS PRN IV NAUSEA/VOMITING; Start 12/07/16 at 13:00; Stop 12/08/16 at 12:59; Status DC Fentanyl Citrate (Fentanyl 2ml Vial) 50 mcg PRN Q2HR PRN IV PAIN; Start at 13:00; Stop 12/08/16 at 12:59; Status DC Sodium Chloride 1,000 ml @ 100 mls/hr Q10H IV Last administered on 12/08/16 08:20; Start 12/07/16 at 12:50; Stop 12/08/16 at 12:33; Status DC Acetaminophen (Tylenol) 650 mg PRN Q4HRS PRN PO FEVER; Start 12/07/16 at 13:00 ; Stop 12/08/16 at 12:59; Status DC Ceftriaxone Sodium 1 gm/ Sodium Chloride 50 ml @ 100 mls/hr Q24H IV ; Start at 13:00; Stop 12/08/16 at 23:24; Status DC Aspirin (Children'S Aspirin) 81 mg DAILY08 PO Last administered on 12/13/16 08 :33; Start 12/07/16 at 16:30 Carvedilol (Coreg) 3.125 mg BIDWMEALS PO Last administered on 12/13/16 08:35; Start 12/07/16 at 17:00 Furosemide (Lasix) 20 mg BID94 PO Last administered on 12/11/16 08:39; Start 12/07/16 at 16:30; Stop 12/11/16 at 09:24; Status DC Losartan Potassium (Cozaar) 50 mg DAILY PO Last administered on 12/10/16 09:04 ; Start 12/07/16 at 16:30; Stop 12/10/16 at 13:16; Status DC Darbepoetin Joey (Aranesp) 60 mcg Th SQ Last administered on 12/08/16 21:00; Start 12/08/16 at 21:00 Magnesium Sulfate/ Dextrose 50 ml @ 25 mls/hr PRN DAILY PRN IV for Mag < 1.7 on am labs; Start 12/08/16 at 10:45 Cyanocobalamin (Vitamin B-12) 500 mcg DAILY PO Last administered on 12/13/16 08:34; Start 12/09/16 at 09:00 Cyclobenzaprine HCl (Flexeril) 10 mg QHS PO Last administered on 12/12/16 20: 26; Start 12/08/16 at 22:00 Docusate Sodium (Colace) 100 mg BID PO Last administered on 12/13/16 08:34; Start 12/08/16 at 22:00 Estrogens Conjugated (Premarin) 1 kristal 3X/WEEK VG ; Start 12/09/16 at 09:00 Metformin HCl (Glucophage) 1,000 mg BID PO ; Start 12/09/16 at 09:00; Status UNV Polyethylene Glycol (miraLAX PACKET) 17 gm DAILY PO Last administered on 08:35; Start 12/09/16 at 09:00 Gabapentin (Neurontin) 600 mg TID PO Last administered on 12/13/16 08:33; Start 12/08/16 at 22:00 Insulin Aspart (NovoLOG) 3 units TIDAC SQ Last administered on 12/10/16 11:26 ; Start 12/09/16 at 07:30; Stop 12/10/16 at 16:58; Status DC Insulin Detemir (Levemir) 25 units QHS SQ Last administered on 12/10/16 00:05 ; Start 12/08/16 at 22:00; Stop 12/10/16 at 16:58; Status DC Oxybutynin Chloride (Ditropan) 5 mg DAILY PO Last administered on 12/13/16 08: 33; Start 12/09/16 at 09:00 Acetaminophen/ Hydrocodone Bitart (Lortab 5/325) 1 tab PRN Q6HRS PRN PO PAIN Last administered on 12/12/16 22:30; Start 12/08/16 at 21:45 Insulin Aspart (NovoLOG) 0-9 UNITS TIDWMEALS SQ Last administered on 12/13/16 08:00; Start 12/09/16 at 08:00 Dextrose (Dextrose 50%-Water Syringe) 12.5 gm PRN Q15MIN PRN IV SEE COMMENTS Last administered on 12/10/16 16:14; Start 12/08/16 at 21:45 Trimethoprim/ Sulfamethoxazole (Bactrim Ds) 1 tab [id number] PO Last administered on 12/09/16 06:35; Start 12/09/16 at 07:00; Stop 12/09/16 at 13:33; Status DC Ceftriaxone Sodium 2 gm/ Sodium Chloride 100 ml @ 200 mls/hr Q24H IV Last administered on 12/12/16 14:55; Start 12/09/16 at 14:00; Stop 12/13/16 at 09:00 ; Status DC Lidocaine/Sodium Bicarbonate (Buffered Lidocaine 1%) 20 ml STK-MED ONCE IJ ; Start 12/09/16 at 14:19; Stop 12/09/16 at 14:20; Status DC Heparin Sodium/ Sodium Chloride 500 ml @ As Directed STK-MED ONCE .ROUTE ; Start 12/09/16 at 14:19; Stop 12/09/16 at 14:20; Status DC Lidocaine/Sodium Bicarbonate (Buffered Lidocaine 1%) 20 ml 1X ONCE IJ Last administered on 12/09/16 14:32; Start 12/09/16 at 14:30; Stop 12/09/16 at 14:31 ; Status DC Heparin Sodium/ Sodium Chloride 60 unit 1X ONCE IV Last administered on 14:32; Start 12/09/16 at 14:30; Stop 12/09/16 at 14:31; Status DC Losartan Potassium (Cozaar) 25 mg DAILY PO Last administered on 12/13/16 08:34 ; Start 12/11/16 at 09:00 Insulin Aspart (NovoLOG) 1 units TIDAC SQ Last administered on 12/13/16 08:43 ; Start 12/11/16 at 07:30 Insulin Detemir (Levemir) 6 units QHS SQ Last administered on 12/12/16 20:31; Start 12/10/16 at 21:00 Magnesium Sulfate/ Dextrose 50 ml @ 25 mls/hr PRN DAILY PRN IV for Mag < 1.7 on am labs; Start 12/11/16 at 09:30; Status UNV Polyethylene Glycol (miraLAX PACKET) 17 gm 1X ONCE PO Last administered on 12:09; Start 12/11/16 at 09:30; Stop 12/11/16 at 09:31; Status DC Polyethylene Glycol (miraLAX PACKET) 17 gm PRN DAILY PRN PO CONSTIPATION; Start 12/11/16 at 09:30 Polyethylene Glycol (miraLAX PACKET) 17 gm DAILY PO Last administered on 14:54; Start 12/12/16 at 09:45 Acetaminophen (Tylenol) 650 mg PRN Q6HRS PRN PO FEVER; Start 12/12/16 at 11:30 Ondansetron HCl (Zofran) 4 mg PRN Q6HRS PRN IV NAUSEA/VOMITING; Start 12/12/16 at 11:30 Morphine Sulfate 2 mg PRN Q2HR PRN IV PAIN; Start 12/12/16 at 11:30 Tramadol HCl (Ultram) 50 mg PRN Q6HRS PRN PO PAIN; Start 12/12/16 at 11:30 Hydralazine HCl (Apresoline) 10 mg PRN Q4HRS PRN IVP ELEVATED BP, SEE COMMENTS ; Start 12/12/16 at 11:30 Docusate Sodium (Colace) 100 mg PRN DAILY PRN PO CONSTIPATION; Start 12/12/16 at 11:30 Docusate Sodium (Colace) 100 mg BID PO ; Start 12/12/16 at 12:00; Status UNV Magnesium Hydroxide (Milk Of Magnesia) 2,400 mg PRN Q12HR PRN PO CONSTIPATION; Start 12/12/16 at 11:30 Lactulose 20 gm PRN Q12HR PRN PO CONSTIPATION; Start 12/12/16 at 11:30 Heparin Sodium (Porcine) (Heparin Sq) 5,000 unit Q8HRS SQ Last administered on 12/13/16 05:33; Start 12/12/16 at 14:00 Ceftriaxone Sodium 2 gm/ Sodium Chloride 100 ml @ 200 mls/hr ONCE ONCE IV Last administered on 12/13/16 10:38; Start 12/13/16 at 09:00; Stop 12/13/16 at 09:29; Status DC Iohexol (Omnipaque 240 Mg/ml) 30 ml 1X ONCE PO Last administered on 12/13/16 11:06; Start 12/13/16 at 09:45; Stop 12/13/16 at 09:50; Status DC Active Scripts Active Miralax (Polyethylene Glycol 3350) 17 Gm Powd.pack 17 Packet PO DAILY Colace (Docusate Sodium) 100 Mg Capsule 1 Cap PO BID [Hydrocodone/Acetaminophen] 1 TAB Tablet 1 Tab PO PRN Q6HRS PRN Reported Losartan Potassium 50 Mg Tablet 50 Mg PO DAILY Furosemide 20 Mg Tablet 20 Mg PO BID Coreg (Carvedilol) 3.125 Mg Tablet 1 Tab PO BID Premarin (Estrogens, Conjugated) 30 Gm Cream.appl 1 Kristal VG 3X/WEEK Cyclobenzaprine Hcl 10 Mg Tablet 1 Tab PO QHS Oxybutynin Chloride Er (Oxybutynin Chloride) 5 Mg Tab.er.24 1 Tab PO DAILY Gabapentin 300 Mg Capsule 600 Mg PO TID Vitamin B-12 (Cyanocobalamin (Vitamin B-12)) 1,000 Mcg Tablet 500 Mcg PO DAILY Lantus Solostar (Insulin Glargine,Hum.rec.anlog) 100 Unit/1 Ml Insuln.pen 25 Unit SQ QHS Novolog (Insulin Aspart) 100 Unit/1 Ml Cartridge 3 Unit SQ TIDAC Aspirin 81 Mg Tab.chew 81 Mg PO Metformin Hcl 500 Mg Tablet 1,000 Mg PO BID Calcium Citrate - Vit D3 Tab (Calcium Citrate/Vitamin D3) 1 Each Tablet 1 Each PO Vitals/I & O Vital Sign - Last 24 Hours 12/12/16 12/12/16 12/12/16 12/12/16 14:58 17:27 19:00 22:30 Temp 97.9 98.0 97.9 98.0 Pulse 88 91 84 Resp 16 17 20 B/P (MAP) 90/52 (65) 120/77 102/59 (73) Pulse Ox 96 O2 Delivery Room Air Room Air Room Air 12/12/16 12/12/16 12/13/16 12/13/16 22:55 23:31 07:00 08:34 Temp 97.8 98.4 97.8 98.4 Pulse 93 85 85 Resp 16 16 B/P (MAP) 137/86 (103) 117/72 (87) 117/72 Pulse Ox 84 99 96 O2 Delivery Room Air Nasal Cannula Nasal Cannula O2 Flow Rate 2.0 1.0 12/13/16 12/13/16 08:35 10:40 Temp 97.9 97.9 Pulse 85 85 Resp 16 B/P (MAP) 117/72 90/60 (70) Pulse Ox 94 O2 Delivery Room Air Intake and Output 12/12/16 12/12/16 12/13/16 15:00 23:00 07:00 Intake Total 360 ml 120 ml Balance 360 ml 120 ml TOSHIA ALTAMIRANO MD Dec 13, 2016 11:48
[2016-12-13 14:59] VITALS: BP 89/59
[2016-12-13 19:00] VITALS: BP 112/65
[2016-12-13] MEDS: CYCLOBENZAPRINE 10 MG TABLET. PO SCH (21:29)
[2016-12-13] MEDS: INSULIN DETEMIR 300 UNITS/3 ML INSULN.PEN. SQ SCH (21:34)
[2016-12-13 23:07] VITALS: BP 121/73
[2016-12-14] MEDS: HYDROcodone/APAP 5/325MG 1 TAB TABLET PO PRN (00:01)
[2016-12-14] MEDS: HEPARIN PF for SUB-Q USE 5,000 UNIT/0.5 ML VIAL. SQ SCH ×2 (06:10→14:00)
[2016-12-14 06:41] LABS: ALBUMIN 2.1 g/dL (3.4-5.0); CALCIUM 8.5 mg/dL (8.5-10.1); CREATININE 1.8 mg/dL (0.6-1.0); GFR 34.7; PHOSPHORUS 3.8 mg/dL (2.6-4.7)
[2016-12-14 07:00] VITALS: BP 107/60
[2016-12-14] MEDS: DOCUSATE SODIUM 100 MG CAPSULE. PO SCH (08:10)
[2016-12-14] MEDS: OXYBUTYNIN CHLORIDE 5 MG TABLET PO SCH (08:10)
[2016-12-14] MEDS: CYANOCOBALAMIN (VITAMIN B-12) 1,000 MCG TABLET. PO SCH (08:10)
[2016-12-14] MEDS: LOSARTAN POTASSIUM 25 MG TABLET. PO SCH (08:11)
[2016-12-14] MEDS: ASPIRIN CHEWABLE 81 MG TABLET. PO SCH (08:11)
[2016-12-14] MEDS: GABAPENTIN 300 MG CAPSULE. PO SCH ×2 (08:11→14:00)
[2016-12-14] MEDS: POLYETHYLENE GLYCOL 3350 17 GM PACKET. PO SCH (08:11)
[2016-12-14] MEDS: CARVEDILOL 3.125 MG TABLET. PO SCH (08:11)
[2016-12-14] MEDS: ESTROGENS, CONJ VAGINAL CREAM 30GM TUBE. VG SCH (08:12)
[2016-12-14] MEDS: INSULIN ASPART 300 UNITS/3 ML INSULN.PEN SQ SCH ×4 (08:19→12:13)
[2016-12-14] MEDS ORDERED: CEFPODOXIME PROXETIL 100 MG TABLET. PO SCH (10:00)
--- NOTE | 2016-12-14 10:36 | PDOC ---
PROGRESS NOTES Subjective Subjective She feels better with her neck pain. Objective Objective Vital Signs Date Time Temp Pulse Resp B/P (MAP) Pulse Ox O2 Delivery O2 Flow Rate FiO2 12/14/16 08:11 85 107/60 12/14/16 07:45 Nasal Cannula 2.0 12/14/16 07:00 97.7 20 98 97.7 Intake and Output 12/14/16 07:00 Intake Total 1040 ml Output Total 200 ml Balance 840 ml Intake Oral 1040 ml Output Urine Total 200 ml # Voids 4 Physical Exam Physical Exam She is sitting up in bedside chair and comfortable but still had some tenderness to palpation over right sternomastoid muscle and high level balance problems. Assessment Assessment Problems Medical Problems: (1) Elevated troponin Status: Acute (2) Renal insufficiency Status: Acute (3) Sepsis Status: Acute (4) Urinary tract infection Status: Acute Plan Plan of Group Home without patient follow up when medically stable. Comment Review of Relevant I have reviewed the following items bro (where applicable) has been applied. Labs Laboratory Tests Test 12/12/16 11:02 12/12/16 16:53 12/12/16 20:29 12/13/16 04:30 Glucose (Fingerstick) 173 mg/dL (70-99) 132 mg/dL (70-99) 250 mg/dL (70-99) White Blood Count 4.2 x10^3/uL (4.0-11.0) Red Blood Count 3.36 x10^6/uL (3.50-5.40) Hemoglobin 9.1 g/dL (12.0-15.5) Hematocrit 27.6 % (36.0-47.0) Mean Corpuscular Volume 82 fL (79-100) Mean Corpuscular Hemoglobin 27 pg (25-35) Mean Corpuscular Hemoglobin Concent 33 g/dL (31-37) Red Cell Distribution Width 17.1 % (11.5-14.5) Platelet Count 185 x10^3/uL (140-400) Neutrophils (%) (Auto) 53 % (31-73) Lymphocytes (%) (Auto) 30 % (24-48) Monocytes (%) (Auto) 14 % (0-9) Eosinophils (%) (Auto) 2 % (0-3) Basophils (%) (Auto) 1 % (0-3) Neutrophils # (Auto) 2.3 x10^3uL (1.8-7.7) Lymphocytes # (Auto) 1.3 x10^3/uL (1.0-4.8) Monocytes # (Auto) 0.6 x10^3/uL (0.0-1.1) Eosinophils # (Auto) 0.1 x10^3/uL (0.0-0.7) Basophils # (Auto) 0.0 x10^3/uL (0.0-0.2) Sodium Level 135 mmol/L (136-145) Potassium Level 4.8 mmol/L (3.5-5.1) Chloride Level 103 mmol/L (98-107) Carbon Dioxide Level 25 mmol/L (21-32) Anion Gap 7 (6-14) Blood Urea Nitrogen 49 mg/dL (7-20) Creatinine 1.8 mg/dL (0.6-1.0) Estimated GFR (Cockcroft-Gault) 34.7 Glucose Level 211 mg/dL (70-99) Calcium Level 8.7 mg/dL (8.5-10.1) Phosphorus Level 3.7 mg/dL (2.6-4.7) Magnesium Level 2.2 mg/dL (1.8-2.4) Albumin 2.0 g/dL (3.4-5.0) Test 12/13/16 07:24 12/13/16 11:22 12/13/16 15:55 12/13/16 21:06 Glucose (Fingerstick) 169 mg/dL (70-99) 199 mg/dL (70-99) 157 mg/dL (70-99) 137 mg/dL (70-99) Test 12/14/16 06:10 12/14/16 07:04 12/14/16 10:26 Sodium Level 136 mmol/L (136-145) Potassium Level 5.0 mmol/L (3.5-5.1) Chloride Level 104 mmol/L (98-107) Carbon Dioxide Level 25 mmol/L (21-32) Anion Gap 7 (6-14) Blood Urea Nitrogen 47 mg/dL (7-20) Creatinine 1.8 mg/dL (0.6-1.0) Estimated GFR (Cockcroft-Gault) 34.7 Glucose Level 171 mg/dL (70-99) Calcium Level 8.5 mg/dL (8.5-10.1) Phosphorus Level 3.8 mg/dL (2.6-4.7) Albumin 2.1 g/dL (3.4-5.0) Glucose (Fingerstick) 158 mg/dL (70-99) 135 mg/dL (70-99) Laboratory Tests Test 12/13/16 11:22 12/13/16 15:55 12/13/16 21:06 12/14/16 06:10 Glucose (Fingerstick) 199 mg/dL (70-99) 157 mg/dL (70-99) 137 mg/dL (70-99) Sodium Level 136 mmol/L (136-145) Potassium Level 5.0 mmol/L (3.5-5.1) Chloride Level 104 mmol/L (98-107) Carbon Dioxide Level 25 mmol/L (21-32) Anion Gap 7 (6-14) Blood Urea Nitrogen 47 mg/dL (7-20) Creatinine 1.8 mg/dL (0.6-1.0) Estimated GFR (Cockcroft-Gault) 34.7 Glucose Level 171 mg/dL (70-99) Calcium Level 8.5 mg/dL (8.5-10.1) Phosphorus Level 3.8 mg/dL (2.6-4.7) Albumin 2.1 g/dL (3.4-5.0) Test 12/14/16 07:04 12/14/16 10:26 Glucose (Fingerstick) 158 mg/dL (70-99) 135 mg/dL (70-99) Microbiology 12/07/16 Blood Culture - Final, Complete 12/07/16 Blood Culture Result 1 (TANJA) - Final, Complete 12/07/16 Urine Culture - Final, Complete 12/07/16 Urine Culture Result 1 (TANJA) - Final, Complete 12/07/16 Antimicrobic Susceptibility - Final, Complete Medications Current Medications Sodium Chloride 1,000 ml @ 430 mls/hr Q2H20M IV Last administered on 13:06; Start 12/07/16 at 10:46; Stop 12/07/16 at 16:31; Status DC Ceftriaxone Sodium 50 ml @ 100 mls/hr 1X ONCE IV Last administered on 6/21/ 17at 12:03; Start 12/07/16 at 12:00; Stop 12/07/16 at 12:29; Status DC Ondansetron HCl (Zofran) 4 mg PRN Q8HRS PRN IV NAUSEA/VOMITING; Start 12/07/16 at 13:00; Stop 12/08/16 at 12:59; Status DC Fentanyl Citrate (Fentanyl 2ml Vial) 50 mcg PRN Q2HR PRN IV PAIN; Start at 13:00; Stop 12/08/16 at 12:59; Status DC Sodium Chloride 1,000 ml @ 100 mls/hr Q10H IV Last administered on 12/08/16 08:20; Start 12/07/16 at 12:50; Stop 12/08/16 at 12:33; Status DC Acetaminophen (Tylenol) 650 mg PRN Q4HRS PRN PO FEVER; Start 12/07/16 at 13:00 ; Stop 12/08/16 at 12:59; Status DC Ceftriaxone Sodium 1 gm/ Sodium Chloride 50 ml @ 100 mls/hr Q24H IV ; Start at 13:00; Stop 12/08/16 at 23:24; Status DC Aspirin (Children'S Aspirin) 81 mg DAILY08 PO Last administered on 12/14/16 08 :11; Start 12/07/16 at 16:30 Carvedilol (Coreg) 3.125 mg BIDWMEALS PO Last administered on 12/14/16 08:11; Start 12/07/16 at 17:00 Furosemide (Lasix) 20 mg BID94 PO Last administered on 12/11/16 08:39; Start 12/07/16 at 16:30; Stop 12/11/16 at 09:24; Status DC Losartan Potassium (Cozaar) 50 mg DAILY PO Last administered on 12/10/16 09:04 ; Start 12/07/16 at 16:30; Stop 12/10/16 at 13:16; Status DC Darbepoetin Joey (Aranesp) 60 mcg Th SQ Last administered on 12/08/16 21:00; Start 12/08/16 at 21:00 Magnesium Sulfate/ Dextrose 50 ml @ 25 mls/hr PRN DAILY PRN IV for Mag < 1.7 on am labs; Start 12/08/16 at 10:45 Cyanocobalamin (Vitamin B-12) 500 mcg DAILY PO Last administered on 12/14/16 08:10; Start 12/09/16 at 09:00 Cyclobenzaprine HCl (Flexeril) 10 mg QHS PO Last administered on 12/13/16 21: 29; Start 12/08/16 at 22:00 Docusate Sodium (Colace) 100 mg BID PO Last administered on 12/14/16 08:10; Start 12/08/16 at 22:00 Estrogens Conjugated (Premarin) 1 kristal 3X/WEEK VG ; Start 12/09/16 at 09:00 Metformin HCl (Glucophage) 1,000 mg BID PO ; Start 12/09/16 at 09:00; Status UNV Polyethylene Glycol (miraLAX PACKET) 17 gm DAILY PO Last administered on 08:35; Start 12/09/16 at 09:00; Stop 12/13/16 at 14:56; Status DC Gabapentin (Neurontin) 600 mg TID PO Last administered on 12/13/16 08:33; Start 12/08/16 at 22:00 Insulin Aspart (NovoLOG) 3 units TIDAC SQ Last administered on 12/10/16 11:26 ; Start 12/09/16 at 07:30; Stop 12/10/16 at 16:58; Status DC Insulin Detemir (Levemir) 25 units QHS SQ Last administered on 12/10/16 00:05 ; Start 12/08/16 at 22:00; Stop 12/10/16 at 16:58; Status DC Oxybutynin Chloride (Ditropan) 5 mg DAILY PO Last administered on 12/14/16 08: 10; Start 12/09/16 at 09:00 Acetaminophen/ Hydrocodone Bitart (Lortab 5/325) 1 tab PRN Q6HRS PRN PO PAIN Last administered on 12/14/16 00:01; Start 12/08/16 at 21:45 Insulin Aspart (NovoLOG) 0-9 UNITS TIDWMEALS SQ Last administered on 12/14/16 08:19; Start 12/09/16 at 08:00 Dextrose (Dextrose 50%-Water Syringe) 12.5 gm PRN Q15MIN PRN IV SEE COMMENTS Last administered on 12/10/16 16:14; Start 12/08/16 at 21:45 Trimethoprim/ Sulfamethoxazole (Bactrim Ds) 1 tab BID76 PO Last administered on 12/09/16 06:35; Start 12/09/16 at 07:00; Stop 12/09/16 at 13:33; Status DC Ceftriaxone Sodium 2 gm/ Sodium Chloride 100 ml @ 200 mls/hr Q24H IV Last administered on 12/12/16 14:55; Start 12/09/16 at 14:00; Stop 12/13/16 at 09:00 ; Status DC Lidocaine/Sodium Bicarbonate (Buffered Lidocaine 1%) 20 ml STK-MED ONCE IJ ; Start 12/09/16 at 14:19; Stop 12/09/16 at 14:20; Status DC Heparin Sodium/ Sodium Chloride 500 ml @ As Directed STK-MED ONCE .ROUTE ; Start 12/09/16 at 14:19; Stop 12/09/16 at 14:20; Status DC Lidocaine/Sodium Bicarbonate (Buffered Lidocaine 1%) 20 ml 1X ONCE IJ Last administered on 12/09/16 14:32; Start 12/09/16 at 14:30; Stop 12/09/16 at 14:31 ; Status DC Heparin Sodium/ Sodium Chloride 60 unit 1X ONCE IV Last administered on 14:32; Start 12/09/16 at 14:30; Stop 12/09/16 at 14:31; Status DC Losartan Potassium (Cozaar) 25 mg DAILY PO Last administered on 12/14/16 08:11 ; Start 12/11/16 at 09:00 Insulin Aspart (NovoLOG) 1 units TIDAC SQ Last administered on 12/14/16 08:20 ; Start 12/11/16 at 07:30 Insulin Detemir (Levemir) 6 units QHS SQ Last administered on 12/13/16 21:34; Start 12/10/16 at 21:00 Magnesium Sulfate/ Dextrose 50 ml @ 25 mls/hr PRN DAILY PRN IV for Mag < 1.7 on am labs; Start 12/11/16 at 09:30; Status UNV Polyethylene Glycol (miraLAX PACKET) 17 gm 1X ONCE PO Last administered on 12:09; Start 12/11/16 at 09:30; Stop 12/11/16 at 09:31; Status DC Polyethylene Glycol (miraLAX PACKET) 17 gm PRN DAILY PRN PO CONSTIPATION; Start 12/11/16 at 09:30 Polyethylene Glycol (miraLAX PACKET) 17 gm DAILY PO Last administered on 08:11; Start 12/12/16 at 09:45 Acetaminophen (Tylenol) 650 mg PRN Q6HRS PRN PO FEVER; Start 12/12/16 at 11:30 Ondansetron HCl (Zofran) 4 mg PRN Q6HRS PRN IV NAUSEA/VOMITING; Start 12/12/16 at 11:30 Morphine Sulfate 2 mg PRN Q2HR PRN IV PAIN; Start 12/12/16 at 11:30 Tramadol HCl (Ultram) 50 mg PRN Q6HRS PRN PO PAIN; Start 12/12/16 at 11:30 Hydralazine HCl (Apresoline) 10 mg PRN Q4HRS PRN IVP ELEVATED BP, SEE COMMENTS ; Start 12/12/16 at 11:30 Docusate Sodium (Colace) 100 mg PRN DAILY PRN PO CONSTIPATION; Start 12/12/16 at 11:30 Docusate Sodium (Colace) 100 mg BID PO ; Start 12/12/16 at 12:00; Status UNV Magnesium Hydroxide (Milk Of Magnesia) 2,400 mg PRN Q12HR PRN PO CONSTIPATION; Start 12/12/16 at 11:30 Lactulose 20 gm PRN Q12HR PRN PO CONSTIPATION; Start 12/12/16 at 11:30 Heparin Sodium (Porcine) (Heparin Sq) 5,000 unit Q8HRS SQ Last administered on 12/14/16 06:10; Start 12/12/16 at 14:00 Ceftriaxone Sodium 2 gm/ Sodium Chloride 100 ml @ 200 mls/hr ONCE ONCE IV Last administered on 12/13/16 10:38; Start 12/13/16 at 09:00; Stop 12/13/16 at 09:29; Status DC Iohexol (Omnipaque 240 Mg/ml) 30 ml 1X ONCE PO Last administered on 12/13/16 11:06; Start 12/13/16 at 09:45; Stop 12/13/16 at 09:50; Status DC Cefpodoxime Proxetil (Vantin) 200 mg BID PO ; Start 12/14/16 at 10:00 Active Scripts Active Miralax (Polyethylene Glycol 3350) 17 Gm Powd.pack 17 Packet PO DAILY Colace (Docusate Sodium) 100 Mg Capsule 1 Cap PO BID [Hydrocodone/Acetaminophen] 1 TAB Tablet 1 Tab PO PRN Q6HRS PRN Reported Losartan Potassium 50 Mg Tablet 50 Mg PO DAILY Furosemide 20 Mg Tablet 20 Mg PO BID Coreg (Carvedilol) 3.125 Mg Tablet 1 Tab PO BID Premarin (Estrogens, Conjugated) 30 Gm Cream.appl 1 Kristal VG 3X/WEEK Cyclobenzaprine Hcl 10 Mg Tablet 1 Tab PO QHS Oxybutynin Chloride Er (Oxybutynin Chloride) 5 Mg Tab.er.24 1 Tab PO DAILY Gabapentin 300 Mg Capsule 600 Mg PO TID Vitamin B-12 (Cyanocobalamin (Vitamin B-12)) 1,000 Mcg Tablet 500 Mcg PO DAILY Lantus Solostar (Insulin Glargine,Hum.rec.anlog) 100 Unit/1 Ml Insuln.pen 25 Unit SQ QHS Novolog (Insulin Aspart) 100 Unit/1 Ml Cartridge 3 Unit SQ TIDAC Aspirin 81 Mg Tab.chew 81 Mg PO Metformin Hcl 500 Mg Tablet 1,000 Mg PO BID Calcium Citrate - Vit D3 Tab (Calcium Citrate/Vitamin D3) 1 Each Tablet 1 Each PO Vitals/I & O Vital Sign - Last 24 Hours 12/13/16 12/13/16 12/13/16 12/13/16 10:40 14:59 16:55 19:00 Temp 97.9 96.9 97.9 97.9 96.9 97.9 Pulse 85 60 60 84 Resp 17 B/P (MAP) 90/60 (70) 89/59 (69) 89/59 112/65 (81) Pulse Ox 94 100 93 O2 Delivery Room Air Nasal Cannula Room Air O2 Flow Rate 1.0 12/13/16 12/13/16 12/14/16 12/14/16 20:00 23:07 03:00 07:00 Temp 98.7 97.7 98.7 97.7 Pulse 90 85 Resp 18 20 B/P (MAP) 121/73 (89) 107/60 (76) Pulse Ox 93 98 O2 Delivery Room Air Room Air Room Air O2 Flow Rate 1.0 12/14/16 12/14/16 12/14/16 07:45 08:11 08:11 Pulse 85 85 B/P (MAP) 107/60 107/60 O2 Delivery Nasal Cannula O2 Flow Rate 2.0 Intake and Output 12/13/16 12/13/16 12/14/16 15:00 23:00 07:00 Intake Total 240 ml 800 ml Output Total 200 ml Balance 240 ml 600 ml NANCIE FARFAN MD Dec 14, 2016 10:36
[2016-12-14 10:53] VITALS: BP 128/77
--- NOTE | 2016-12-14 11:59 | PDOC ---
Renal-Progress Notes Subjective Notes Notes SITTING UP, NO NEW COMPLAINTS History of Present Illness Hx of present illness STABLE Vitals Vitals Vital Signs Date Time Temp Pulse Resp B/P (MAP) Pulse Ox O2 Delivery O2 Flow Rate FiO2 12/14/16 10:53 96.0 98 20 128/77 (94) 96 Room Air 96.0 12/14/16 07:45 2.0 Weight Weight [ ] I.O. Intake and Output Intake and Output 12/14/16 07:00 Intake Total 1040 ml Output Total 200 ml Balance 840 ml Intake Oral 1040 ml Output Urine Total 200 ml # Voids 4 Labs Labs Laboratory Tests Test 12/13/16 15:55 12/13/16 21:06 12/14/16 06:10 12/14/16 07:04 Glucose (Fingerstick) 157 mg/dL (70-99) 137 mg/dL (70-99) 158 mg/dL (70-99) Sodium Level 136 mmol/L (136-145) Potassium Level 5.0 mmol/L (3.5-5.1) Chloride Level 104 mmol/L (98-107) Carbon Dioxide Level 25 mmol/L (21-32) Anion Gap 7 (6-14) Blood Urea Nitrogen 47 mg/dL (7-20) Creatinine 1.8 mg/dL (0.6-1.0) Estimated GFR (Cockcroft-Gault) 34.7 Glucose Level 171 mg/dL (70-99) Calcium Level 8.5 mg/dL (8.5-10.1) Phosphorus Level 3.8 mg/dL (2.6-4.7) Albumin 2.1 g/dL (3.4-5.0) Test 12/14/16 10:26 Glucose (Fingerstick) 135 mg/dL (70-99) Micro Micro Microbiology 12/07/16 Blood Culture - Final, Complete 12/07/16 Blood Culture Result 1 (TANJA) - Final, Complete 12/07/16 Urine Culture - Final, Complete 12/07/16 Urine Culture Result 1 (TANJA) - Final, Complete 12/07/16 Antimicrobic Susceptibility - Final, Complete Review of Systems Constitutional: yes: no symptom reported Physical Exam General Appearance: no apparent distress Skin: warm Respiratory: bilateral CTA Heart: S1S2, RRR Genitourinary: bladder flat Extremities: atrophy Musculoskeletal: Other (osteomyelitis ) Assessment Assessment IMP E COLI UTI E COLI SEPSIS CM WITH EF OF 20% CKD STAGE 3 TO 4 WITH STABLE CR AT 1.8 PLAN CONT WITH ARB ADD LOW DOSE LASIX ANTIBIOTICS SUPPORTIVE CARE LABS IN AM DOROTHEA DELEON MD Dec 14, 2016 11:59
--- NOTE | 2016-12-14 13:41 | PDOC3 ---
Discharge Summary [facility] Date of Admission: Dec 07, 2016 Discharge Date: Dec 14, 2016 Admitting Diagnosis Urinary tract infection with Ecoli Sepsis with UTI E Coli bacteremia neck pain, 2/2 muscle spasm likely dm2 ckd4 constipation h/o recent NTEMI With ICD HTN acute resp failure hypoxia stable systolic CHF 20% EF Problems: Final Diagnosis CONSULTS dr. Jethro craig Brief Hospital Course Ms. Downey is a 61 old F, h/o CAD with icd, chf EF 20%, comes for abd pain, dysuria, some chest pain. She was found uti, + bacteremia with ecoli, ASHLEY. She has been treated with ceftriaxone iv daily. She cont having LLQ abd pain sometimes, CT neg except constipation. She also c/o right neck , shoulder pain, CT neg, likely 2/2 muscle spasm. dc pt home with cefpodoxime x4ds, flexiril, lortab 20 pills. also need home o2 1L at exertion. 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 Family history: Diabetes mellitus (situation) Problems: Disposition home CONDITION AT DISCHARGE: Improved Diet regular, ada Scheduled Carvedilol (Coreg), 1 TAB PO BID, (Reported) Cyanocobalamin (Vitamin B-12) (Vitamin B-12), 500 MCG PO DAILY, (Reported) Cyclobenzaprine Hcl (Cyclobenzaprine Hcl), 1 TAB PO QHS, (Reported) Docusate Sodium (Colace), 1 CAP PO BID Estrogens, Conjugated (Premarin), 1 MELISSA VG 3X/WEEK, (Reported) Furosemide (Furosemide), 20 MG PO BID, (Reported) Gabapentin (Gabapentin), 600 MG PO TID, (Reported) Insulin Aspart (Novolog), 3 UNIT SQ TIDAC, (Reported) Insulin Glargine,Hum.rec.anlog (Lantus Solostar), 25 UNIT SQ QHS, (Reported) Losartan Potassium (Losartan Potassium), 50 MG PO DAILY, (Reported) Metformin Hcl (Metformin Hcl), 1,000 MG PO BID, (Reported) Oxybutynin Chloride (Oxybutynin Chloride Er), 1 TAB PO DAILY, (Reported) Polyethylene Glycol 3350 (Miralax), 17 PACKET PO DAILY Scheduled PRN [Hydrocodone/Acetaminophen], 1 TAB PO PRN Q6HRS PRN for PAIN Miscellaneous Medications Aspirin (Aspirin), 81 MG PO, (Reported) Calcium Citrate/Vitamin D3 (Calcium Citrate - Vit D3 Tab), 1 EACH PO, (Reported) Follow Up card, pcp in 2 weeks TOSHIA ALTAMIRANO MD Dec 14, 2016 13:41
[2016-12-14] MEDS ORDERED: Hydrocodone/Acetaminophen PO (13:45)
[2016-12-14] MEDS ORDERED: CYCL10TA2 PO (13:45)
[2016-12-14] MEDS ORDERED: CEFP100T PO (13:45)
== END 2016-12-14 15:42 | disposition home or self-care (01) | DRG 871 ==
LOC: ER 10:17 → 5 SOUTH 11:51
PROVIDERS: ADMIT Internal Medicine; ATTEND Internal Medicine
PROC: 02HV33Z Insertion of Infusion Device into Superior Vena Cava, Percutaneous Approach (ICD-10-PCS; principal; 2016-12-09)
PROC: B5181ZA Fluoroscopy of Superior Vena Cava using Low Osmolar Contrast, Guidance (ICD-10-PCS; 2016-12-09)
PROC: B548ZZA Ultrasonography of Superior Vena Cava, Guidance (ICD-10-PCS; 2016-12-09)
DX: A41.51 Sepsis due to Escherichia coli [E. coli] (principal); J96.01 Acute respiratory failure with hypoxia; N39.0 Urinary tract infection, site not specified; I50.22 Chronic systolic (congestive) heart failure; N17.9 Acute kidney failure, unspecified; I13.0 Hypertensive heart and chronic kidney disease with heart failure and stage 1 through stage 4 chronic kidney disease, or unspecified chronic kidney disease; I42.9 Cardiomyopathy, unspecified; E44.0 Moderate protein-calorie malnutrition; N18.4 Chronic kidney disease, stage 4 (severe); E66.9 Obesity, unspecified; M47.812 Spondylosis without myelopathy or radiculopathy, cervical region; R35.0 Frequency of micturition; E11.22 Type 2 diabetes mellitus with diabetic chronic kidney disease; D63.1 Anemia in chronic kidney disease; E11.319 Type 2 diabetes mellitus with unspecified diabetic retinopathy without macular edema; E11.42 Type 2 diabetes mellitus with diabetic polyneuropathy; E78.5 Hyperlipidemia, unspecified; I25.10 Atherosclerotic heart disease of native coronary artery without angina pectoris; H54.41 Blindness, right eye, normal vision left eye; I27.2 Other secondary pulmonary hypertension; R39.15 Urgency of urination; K59.00 Constipation, unspecified; K21.9 Gastro-esophageal reflux disease without esophagitis; Z82.49 Family history of ischemic heart disease and other diseases of the circulatory system; Z86.14 Personal history of Methicillin resistant Staphylococcus aureus infection; I25.2 Old myocardial infarction; Z83.3 Family history of diabetes mellitus; Z88.1 Allergy status to other antibiotic agents; Z95.810 Presence of automatic (implantable) cardiac defibrillator; Z68.32 Body mass index [BMI] 32.0-32.9, adult; Z89.429 Acquired absence of other toe(s), unspecified side; Z79.899 Other long term (current) drug therapy; Z79.1 Long term (current) use of non-steroidal anti-inflammatories (NSAID); Z90.710 Acquired absence of both cervix and uterus; Z98.49 Cataract extraction status, unspecified eye
CPT/HCPCS: 36415; 36569; 70490; 71010; 74022; 74176; 76937; 77001; 80048; 80053; 80069; 81001; 82553; 82962; 83605; 83735; 84145; 84484; 85007; 85027; 87040; 87086; 87186; 87205; 93005; 94620; 96365; C1751; C1892; J0690; J0696; J0881; J1815; J7030; J7042; Q9966; 99285-25

== ENCOUNTER 2017-06-05 17:52 | Inpatient (IN) | payer MEDICARE, OTHER ==
[~2017-06-05] VITALS: Ht 165.1 cm; Wt 91.9 kg
[~2017-06-05 17:52] MED LIST changes: +CEFP100T PO
[2017-06-05] MEDS ORDERED: ONDANSETRON PF 4 MG/2 ML VIAL. IV ONE (18:30)
[2017-06-05 18:41] LABS: BASO % 0 % (0-3); EOS % 1 % (0-3); HEMATOCRIT 27.8 % (36.0-47.0); HEMOGLOBIN 8.8 g/dL (12.0-15.5); LYMPH # 1.5 x10^3/uL (1.0-4.8); LYMPH % 23 % (24-48); MEAN CORPUSCULAR HEMOGLOBIN 26 pg (25-35); MEAN CORPUSCULAR HGB CONC 32 g/dL (31-37); MEAN CORPUSCULAR VOLUME 83 fL (79-100); MONO % 10 % (0-9); NEUT % 66 % (31-73); PLATELET COUNT 127 x10^3/uL (140-400); RED BLOOD COUNT 3.37 x10^6/uL (3.50-5.40); WHITE BLOOD COUNT 6.5 x10^3/uL (4.0-11.0)
[2017-06-05 18:56] LABS: CALCIUM 8.4 mg/dL (8.5-10.1); CREATININE 2.3 mg/dL (0.6-1.0); GFR 26.2; POTASSIUM 4.3 mmol/L (3.5-5.1)
[2017-06-05 19:00] LABS: OBC FLU VALID
[2017-06-05 19:02] LABS: ALBUMIN/GLOBULIN RATIO 0.5 (1.0-1.7); TOTAL BILIRUBIN 0.5 mg/dL (0.2-1.0); TOTAL PROTEIN 9.1 g/dL (6.4-8.2)
[2017-06-05] MEDS ORDERED: ASPIRIN CHEWABLE 81 MG TABLET. PO ONE (19:45)
--- NOTE | 2017-06-05 19:50 | PHYS DOC ---
Past Medical History Past Medical History: CAD, CHF, Diabetes-Type II, Hypertension, MRSA, Renal Failure, Other Additional Past Medical Histor: blindness rt eye Past Surgical History: Cholecystectomy, Pacemaker, Other Additional Past Surgical Histo: "pacemaker removal",AMPUTATION OF 2ND TOE LT FT , DEFIB PLACED MONTHS AGO Alcohol Use: None Drug Use: None Adult General Chief Complaint Chief Complaint: COUGH HPI HPI Patient is a 61 year old female with history of nonischemic cardiomyopathy, congestive heart failure and hypertension who presents with reactive cough with yellow sputum and chest wall pain for the past 3 days. No fever chills. While in the emergency department, the patient developed nausea vomiting and shortness of breath. Patient denies abdominal pain, flank pain, urinary frequency and urgency. No other acute symptoms or complaints at this time. [] Review of Systems Review of Systems Review symptoms as per history of present illness. All other review symptoms are negative. [] All other systems were reviewed and found to be within normal limits, except as documented in this note. Current Medications Current Medications Current Medications Medications (Trade) Dose Ordered Sig/Wilfrid Start Time Stop Time Status Last Admin Dose Admin Ondansetron HCl (Zofran) 8 mg 1X ONCE 06/05/17 18:30 06/05/17 18:31 DC 06/05/17 18:36 8 MG Allergies Allergies Allergies Coded Allergies Type Severity Reaction Last Updated Verified Iodinated Contrast- Oral and IV Dye Allergy Intermediate Itching 01/20/17 Yes celecoxib Allergy Intermediate 12/07/16 Yes ciprofloxacin Allergy Intermediate 04/16/15 Yes Physical Exam Physical Exam Constitutional: Well developed, well nourished, acutely ill appearing. [] HENT: Normocephalic, atraumatic, bilateral external ears normal, oropharynx moist, no oral exudates, nose normal. [] Eyes: PERRLA, EOMI, conjunctiva normal. [] Neck: Normal range of motion, no tenderness, supple. [] Cardiovascular: Tachycardic. Bipedal edema[] Lungs & Thorax: Bilateral breath sounds clear to auscultation [] Abdomen: Bowel sounds normal, soft, no tenderness. [] Skin: Warm, dry. [] Back: No tenderness. [] Extremities: No tenderness. [] Neurologic: Alert and oriented X 3, normal motor function, normal sensory function, no focal deficits noted. [] Psychologic: Affect anxious. [] Current Patient Data Vital Signs Vital Signs Date Time Temp Pulse Resp B/P (MAP) Pulse Ox O2 Delivery O2 Flow Rate FiO2 06/05/17 18:00 110 123/69 (87) 95 Room Air 06/05/17 17:57 101.5 24 101.5 Lab Values Laboratory Tests Test 06/05/17 18:05 06/05/17 18:25 Influenza Type A Antigen Negative (NEGATIVE) Influenza Type B Antigen Negative (NEGATIVE) White Blood Count 6.5 x10^3/uL (4.0-11.0) Red Blood Count 3.37 x10^6/uL (3.50-5.40) L Hemoglobin 8.8 g/dL (12.0-15.5) L Hematocrit 27.8 % (36.0-47.0) L Mean Corpuscular Volume 83 fL (79-100) Mean Corpuscular Hemoglobin 26 pg (25-35) Mean Corpuscular Hemoglobin Concent 32 g/dL (31-37) Red Cell Distribution Width 18.0 % (11.5-14.5) H Platelet Count 127 x10^3/uL (140-400) L Neutrophils (%) (Auto) 66 % (31-73) Lymphocytes (%) (Auto) 23 % (24-48) L Monocytes (%) (Auto) 10 % (0-9) H Eosinophils (%) (Auto) 1 % (0-3) Basophils (%) (Auto) 0 % (0-3) Neutrophils # (Auto) 4.3 x10^3uL (1.8-7.7) Lymphocytes # (Auto) 1.5 x10^3/uL (1.0-4.8) Monocytes # (Auto) 0.7 x10^3/uL (0.0-1.1) Eosinophils # (Auto) 0.0 x10^3/uL (0.0-0.7) Basophils # (Auto) 0.0 x10^3/uL (0.0-0.2) Sodium Level 140 mmol/L (136-145) Potassium Level 4.3 mmol/L (3.5-5.1) Chloride Level 101 mmol/L (98-107) Carbon Dioxide Level 26 mmol/L (21-32) Anion Gap 13 (6-14) Blood Urea Nitrogen 44 mg/dL (7-20) H Creatinine 2.3 mg/dL (0.6-1.0) H Estimated GFR (Cockcroft-Gault) 26.2 BUN/Creatinine Ratio 19 (6-20) Glucose Level 192 mg/dL (70-99) H Lactic Acid Level 4.9 mmol/L (0.4-2.0) *H Calcium Level 8.4 mg/dL (8.5-10.1) L Total Bilirubin 0.5 mg/dL (0.2-1.0) Aspartate Amino Transferase (AST) 115 U/L (15-37) H Alanine Aminotransferase (ALT) 75 U/L (14-59) H Alkaline Phosphatase 277 U/L (46-116) H Troponin I Quantitative 0.806 ng/mL (0.000-0.055) MO-Ovz-M-Type Natriuretic Peptide 32822 pg/mL (0-124) H Total Protein 9.1 g/dL (6.4-8.2) H Albumin 3.0 g/dL (3.4-5.0) L Albumin/Globulin Ratio 0.5 (1.0-1.7) L Lipase 84 U/L (73-393) Laboratory Tests 06/05/17 18:25 Laboratory Tests 06/05/17 18:25 EKG EKG [EKG: Sinus tach at 116, no acute ST-T wave changes, QTC 507, interpretation by this physician.] Radiology/Procedures Radiology/Procedures [Chest x-ray: No acute cardiopulmonary disease per radiology report. Abdomen pelvis/chest: Pulmonary vascular congestion, opacity right middle lobe may represent pulmonary edema or infiltrate. No acute finding in Abdomen and pelvis per radiology report] Course & Med Decision Making Course & Med Decision Making Pertinent Labs and Imaging studies reviewed. (See chart for details) [Clinical suspicion of pneumonia. Patient started on IV antibiotics. IV fluid bolus given. Given the patient's underlying cardiomyopathy low ejection fraction , fluids will be given cautiously. Infectious disease, nephrology, and cardiology consult at. Dr. Khan to see the patient in the ICU.] Dragon Disclaimer Dragon Disclaimer This electronic medical record was generated, in whole or in part, using a voice recognition dictation system. Departure Departure Impression: Primary Impression: Elevated troponin Additional Impressions: Pneumonia Sepsis Congestive heart disease Disposition: ADMITTED INPATIENT Admitting Physician: Benny Khan Condition: IMPROVED Referrals: NEHAL LEWIS MD (PCP) Problem Qualifiers KRIS SIMS DO Jun 05, 2017 19:50
[2017-06-05] MEDS ORDERED: IV NORMAL SALINE 1000ML BAG 1,000 ML IV ONE (20:00)
[2017-06-05] MEDS ORDERED: CEFEPIME HCL 2 GM in IV DEXTROSE 5% 100 ML IV ONE (20:00)
--- NOTE | 2017-06-05 20:02 | EKG ---
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
[2017-06-05] MEDS ORDERED: ACETAMINOPHEN 500 MG TABLET PO ONE (20:15)
[2017-06-05] MEDS ORDERED: ACETAMINOPHEN 325 MG TABLET. PO PRN (20:15)
[2017-06-05] MEDS ORDERED: ONDANSETRON PF 4 MG/2 ML VIAL. IV PRN (20:15)
[2017-06-05 21:00] VITALS: BP 122/70
[2017-06-05] MEDS ORDERED: VANCOMYCIN 2 GM in IV DEXTROSE 5 %-0.2 % NACL 500 ML IV ONE (21:00)
[2017-06-05 21:10] VITALS: BP 120/70
[2017-06-05] MEDS: CEFEPIME HCL IV Push 2 GM VIAL. IVP SCH (21:44)
[2017-06-05] MEDS: IV NORMAL SALINE 1000ML BAG 1,000 ML IV SCH (21:48)
[2017-06-05 22:00] VITALS: BP 67/48
[2017-06-05] MEDS: VANCOMYCIN PER PHARMACY MC PRN (22:01)
[2017-06-05] MEDS ORDERED: NOREPINEPHRIN PREMIX 250 ML IV PRN (22:45)
[2017-06-05 23:00] VITALS: BP 68/44
[2017-06-05 23:15] VITALS: BP 110/62
--- NOTE | 2017-06-05 23:29 | RAD ---
PQRS Compliance Statement: One or more of the following individualized dose reduction techniques were utilized for this examination: 1. Automated exposure control 2. Adjustment of the mA and/or kV according to patient size 3. Use of iterative reconstruction technique CT chest, abdomen and pelvis without intravenous contrast 06/05/2017 INDICATION: Shortness of breath and abdominal pain. COMPARISON: Abdomen/pelvis October 13, 2016 TECHNIQUE: Multiple axial CT images of the chest, abdomen and pelvis were obtained without intravenous contrast. Coronal and sagittal reformats are provided. FINDINGS: CHEST: A left chest wall cardiac device is identified with leads terminating in the right atrium and right ventricle. Thyroid gland is normal in appearance. There are no pathologically enlarged lymph nodes in the axilla, mediastinum or hilar regions. Heart size is enlarged. There is no pericardial effusion. Thoracic aorta is normal in caliber. Main pulmonary artery is mildly prominent measuring 3.7 cm. There is mild pulmonary vascular congestion. Patchy areas of groundglass attenuation favored to represent pulmonary edema. There is more focal patchy consolidation in the medial right middle lobe which may represent infiltrate. There is a trace left pleural effusion. Abdomen/pelvis: Evaluation is limited by lack of intravenous contrast. Liver, spleen and bilateral adrenal glands are normal in appearance. There is moderate fatty atrophy of the pancreas. Cholecystectomy changes are identified. The kidneys are symmetric in size. No hydronephrosis. Urinary bladder is within normal limits given degree of distention. Abdominal aorta is normal in course and caliber with mild atherosclerotic calcification. There is no free fluid or free intraperitoneal air. Small large bowel are normal in caliber. No pericolonic inflammatory changes are identified. No evidence for bowel obstruction. Normal appendix is visualized. There may be an appendicolith at the base of the appendix. No pelvic masses are identified. No suspicious osseous lesions are identified. Moderate degenerative disc disease is noted in the lower lumbar spine. Schmorl's nodes are identified involving the inferior endplate of L2, inferior endplate of L3 and superior endplate of L4. IMPRESSION: 1. Cardiomegaly with mild pulmonary vascular congestion and pulmonary edema compatible with congestive heart changes. 2. There is patchy opacity in the medial right middle lobe suspicious for pulmonary infiltrate. 3. Trace left pleural effusion. 4. No acute abnormality is identified in the abdomen or pelvis. Electronically signed by: Elvie Austin MD (06/05/2017 11:26 PM) [facility]
--- NOTE | 2017-06-05 23:35 | HP ---
ADMIT DATE: 06/05/2017 CHIEF COMPLAINT: Productive sputum, weakness, nausea. HISTORY OF PRESENT ILLNESS: The patient is a pleasant 61-year-old female who presents with the above chief complaints. Basically, she has been quite weak. She has got nausea, vomiting, yellow sputum. She also has a known history of dilated cardiomyopathy. I discussed the case with the ER physician. We are going to admit the patient and consult Infectious Disease and Cardiology. It should be noted that she does have a temperature here in the ER of 103. She seems septic. She is going to the ICU. PAST MEDICAL HISTORY: Dilated cardiomyopathy, previous pneumonias, polypharmacy, CHF, osteoporosis, B12 deficiency, anemia, diabetes, hyperlipidemia, constipation. ALLERGIES: IODINE, CELEBREX, AND CIPRO. FAMILY HISTORY: Diabetes. SOCIAL HISTORY: She does not drink, smoke or take drugs. MEDICATIONS: Reviewed. REVIEW OF SYSTEMS: GENERAL: She complains of weakness. SKIN: No bruising, hair changes or rashes. EYES: No blurred, double or loss of vision. NOSE AND THROAT: No history of nosebleeds, hoarseness or sore throat. HEART: No history of palpitations, chest pain or shortness of breath on exertion. LUNGS: She complains of shortness of breath. GASTROINTESTINAL: She complains of nausea. GENITOURINARY: No history of frequency, urgency, hesitancy or nocturia. NEUROLOGIC: Denies history of numbness, tingling, tremor or weakness. PSYCHIATRIC: No history of panic, anxiety or depression. ENDOCRINE: No history of heat or cold intolerance, polyuria or polydipsia. EXTREMITIES: Denies muscle weakness, joint pain, pain on walking or stiffness. PHYSICAL EXAMINATION: VITAL SIGNS: Temperature 103, pulse 110, respirations 22, blood pressure is 123/69. GENERAL: She is quite weak in the ICU. HEART: Normal S1, S2, tachycardic. There is a slight S3 as well. LUNGS: Slight crackles. ABDOMEN: Soft. Decreased bowel sounds. EXTREMITIES: Trace edema. SKIN: No rashes. ENDOCRINE: No thyromegaly. LYMPHATICS: No cervical nodes. HEMATOPOIETIC: No bruising. PSYCHIATRIC: She is depressed. LABORATORY DATA: White count 6, hemoglobin 9, platelets 127. Electrolytes normal other than BUN of 44 and a creatinine of 2.3. Lactic acid is high at 4.9. BNP 14,313. Troponin 0.806. Chest x-ray results are pending. ASSESSMENT AND PLAN: Sepsis, acute renal failure, acute on chronic systolic and diastolic heart failure, and anemia. The patient has been admitted to the ICU. We will start IV antibiotics, gentle IV fluids per protocol. Consult Cardiology. Consult Infectious Disease. Consult Nephrology. Frequent labs. PROGNOSIS: Guarded. BULMARO HAIRSTON DO DR: MARTHA/king JOB#: [id number] / [id number]
[2017-06-05 23:59] VITALS: BP 97/60
[2017-06-06] VITALS (24 sets, daily range): BP systolic 66–126; BP diastolic 48–73
--- NOTE | 2017-06-06 07:20 | RAD ---
Indication: Shortness of breath Technique: Portable AP upright chest x-ray Comparison: Previous study from 01/21/2017 Findings: Heart is mildly enlarged in size. Note made of left chest wall cardiac pacemaker. Lungs are clear of focal consolidation. Mild prominence of the pulmonary vasculature. Visualized bony thorax is within normal limits. No pneumothorax or effusion. Impression: Mild pulmonary vascular congestion.
[2017-06-06] MEDS ORDERED: IPRATRPIUM/ALBUTEROL 0.5/2.5MG 3 ML NEBU. NEB SCH (08:00)
--- NOTE | 2017-06-06 08:18 | PDOC2 ---
CONSULT Date of Consult Date of Consult DATE: 06/06/17 TIME: 08:16 Reason for Consult Reason for Consult: ASHLEY + CKD III Referring Physician Referring Physician: Dr Vang ([facility]) and Dr Khan Source Source: Chart review, Patient Past Medical History Cardiovascular: CAD, CHF, HTN, ND, Hyperlipidemia Pulmonary: No pertinent hx CENTRAL NERVOUS SYSTEM: Periperal neuropathy GI: GERD Heme/Onc: No pertinent hx Hepatobiliary: No pertinent hx Psych: No pertinent hx Musculoskeletal: Other Rheumatologic: No pertinent hx Infectious disease: No pertinent hx Renal/: Chronic renal insuff Endocrine: Diabetes Past Surgical History Past Surgical History: Pacemaker, Cholecystectomy, Cataract Removal, Tonsillectomy, Hysterectomy, Other Family History Family History: Diabetes, Heart Disease, Hypertension Social History ALCOHOL: none Drugs: None Lives: with Family Current Problem List Problem List Problems Medical Problems: (1) Congestive heart disease Status: Acute (2) Elevated troponin Status: Acute (3) Pneumonia Status: Acute (4) Sepsis Status: Acute Current Medications Current Medications Current Medications Ondansetron HCl (Zofran) 8 mg 1X ONCE IV Last administered on 06/05/17 18:36 ; Start 06/05/17 at 18:30; Stop 06/05/17 at 18:31; Status DC Aspirin (Children'S Aspirin) 324 mg 1X ONCE PO Last administered on 19:48; Start 06/05/17 at 19:45; Stop 06/05/17 at 19:46; Status DC Sodium Chloride 1,000 ml @ 1,000 mls/hr 1X ONCE IV Last administered on 06/05 20:12; Start 06/05/17 at 20:00; Stop 06/05/17 at 20:59; Status DC Cefepime HCl 2 gm/ Dextrose 100 ml @ 200 mls/hr 1X ONCE IV ; Start 06/05/17 at 20:00; Stop 06/05/17 at 20:04; Status DC Cefepime HCl (Maxipime) 2 gm Q12HR IVP Last administered on 06/05/17 21:44; Start 06/05/17 at 21:00 Ondansetron HCl (Zofran) 4 mg PRN Q8HRS PRN IV NAUSEA/VOMITING; Start at 20:15; Stop 06/06/17 at 20:14 Sodium Chloride 1,000 ml @ 75 mls/hr [id number] IV Last administered on 21:48; Start 06/05/17 at 20:06; Stop 06/06/17 at 20:05 Albuterol/ Ipratropium (Duoneb) 3 ml RTQID NEB ; Start 06/06/17 at 08:00; Stop 06/07/17 at 07:59 Acetaminophen (Tylenol) 650 mg PRN Q6HRS PRN PO fever; Start 06/05/17 at 20:15 Vancomycin HCl (Vanco Per Pharmacy) 1 each PRN DAILY PRN MC SEE COMMENTS Last administered on 06/05/17 22:01; Start 06/05/17 at 20:15 Acetaminophen (Tylenol) 1,000 mg 1X ONCE PO Last administered on 06/05/17 20 :17; Start 06/05/17 at 20:15; Stop 06/05/17 at 20:21; Status DC Vancomycin HCl 2 gm/Dextrose/ Sodium Chloride 500 ml @ 250 mls/hr 1X ONCE IV Last administered on 06/05/17 21:45; Start 06/05/17 at 21:00; Stop 06/05/17 at 22:59; Status DC Vancomycin HCl 1.25 gm/Sodium Chloride 250 ml @ 167 mls/hr Q24H IV ; Start at 22:00 Vancomycin HCl 1 each 1X ONCE MC ; Start 06/07/17 at 21:30; Stop 06/07/17 at 21:31 Norepinephrine Bitartrate 250 ml @ 0 mls/hr CONT PRN IV SEE I/O RECORD Last administered on 06/05/17 23:13; Start 06/05/17 at 22:45 Active Scripts Active Cefpodoxime Proxetil 100 Mg Tablet 200 Mg PO BID 4 Days Cyclobenzaprine Hcl 10 Mg Tablet 1 Tab PO QHS Miralax (Polyethylene Glycol 3350) 17 Gm Powd.pack 17 Packet PO DAILY Colace (Docusate Sodium) 100 Mg Capsule 1 Cap PO BID Reported Losartan Potassium 50 Mg Tablet 50 Mg PO DAILY Furosemide 20 Mg Tablet 20 Mg PO BID Coreg (Carvedilol) 3.125 Mg Tablet 1 Tab PO BID Gabapentin 300 Mg Capsule 600 Mg PO TID Vitamin B-12 (Cyanocobalamin (Vitamin B-12)) 1,000 Mcg Tablet 500 Mcg PO DAILY Lantus Solostar (Insulin Glargine,Hum.rec.anlog) 100 Unit/1 Ml Insuln.pen 25 Unit SQ QHS Novolog (Insulin Aspart) 100 Unit/1 Ml Cartridge 3 Unit SQ TIDAC Aspirin 81 Mg Tab.chew 81 Mg PO Metformin Hcl 500 Mg Tablet 1,000 Mg PO BID Calcium Citrate - Vit D3 Tab (Calcium Citrate/Vitamin D3) 1 Each Tablet 1 Each PO Allergies Allergies: Coded Allergies: Iodinated Contrast- Oral and IV Dye (Verified Allergy, Intermediate, Itching, 01/20/17) No visible hives or redness, no difficulty breathing. Patient complained of intense all-over body itching. celecoxib (Verified Allergy, Intermediate, 12/07/16) HAS TOLERATED ASA ciprofloxacin (Verified Allergy, Intermediate, 04/16/15) ROS Review of System GEN: + Fevers no Chills EYES: no new Visual Complaints ENT: no EN Drainage no Hearing deficiets CVS: no Orthopnea + Pleuritic CP RESP: + SOB + PHILLIPS +COugh with Phlegm GI: no Nausea no Vomiting : no Dysuria no Urgency HEME: no easy bruising no Palp Ly Nodes NEURO no Focal Weakness no Sz PSYCH: no Suicidal Ideation no Depression SKIN: no Rashes ENDO: no Polyuria or Polydipsia no Hot/Cold Intolerance MU SK: occ Arthraigia no Myalgia Physical Exam Physical Exam General Appearance: Awake Alert Oriented x 3 In min Distress from CP; imild facial pallor Eyes: VIsion: Dec on Left - Almost blind on Rt; Conjunctiva Normal EN: No EN Drainage Mucous Memb. moist Neck: no JVD no JVP Supple no Thyromegaly CVS: S1 S2 + Murmur No Gallop No Rub no Edema Resp: rare RLL Rales no Rhonchi no Acc. Muscle use GI: BS +ve NO Bruit Non Tender Non Distended : no CVA tenderness; no Suprapubic Tenderness SKIN: no Rashes Breast Exam deferred Mu.Sk: Adequate ROM no Muscle Atrophy Heme: Unable to palpate Obvious LAD no Splenomegaly NEURO: Good Strength and Tone Cranial Nerves II - XII grossly intact Psych: no Depressed no Active hallucination Vital Signs Vital Signs Date Time Temp Pulse Resp B/P (MAP) Pulse Ox O2 Delivery O2 Flow Rate FiO2 06/06/17 08:07 Nasal Cannula 2.0 06/06/17 07:00 91 29 126/73 (90) 91 06/06/17 04:00 98.3 98.3 Assessment & Plan ASHLEY - d/d is wide: POssible ATN asso with Low BP and infection (? Sepsis) cannot be ruled out - check UA. VMN due to Cardiomyopahty, ASHLEY due to Paraprotein and worsening of CKD. Current FLuid and E-lyte status does not necessitate emergent need for Dialysis. Will re-evaluate for Dialysis in am CKD III - DM/ HTNsive / NS cannot be ruled out Anemia: (h/o of fe def state +/- CKD ) chekc Iron, check PEPs since plts are low too (Previous PEP in Sep was -ve). Transfuse with next HD as needed. HypoTN: Current BP meds reviewed. See orders for changes. Lactic Acidosis - improving with Pressors, unable to use aggressive IVF due to VHDz CHF with Cardiomyopahty - Caution with IVF - Cardiology consulted, ? Role for ionotropes; ECHO ordered Oliguria - watch UO now that Hemodynamics are better Previous Pericardial Eff - ct PO lasix for now - no audible rub per se on my exam VHDz as noted on previous ECHO: - reconsult cardiology ? Septic Shock: ABx per ID - ? Pn source Discussed Plan of Care and prognosis etc. at length with pt and RN at bedside Labs Labs Laboratory Tests Test 06/05/17 18:05 06/05/17 18:25 06/05/17 22:00 06/06/17 00:34 Influenza Type A Antigen Negative (NEGATIVE) Influenza Type B Antigen Negative (NEGATIVE) White Blood Count 6.5 x10^3/uL (4.0-11.0) Red Blood Count 3.37 x10^6/uL (3.50-5.40) Hemoglobin 8.8 g/dL (12.0-15.5) Hematocrit 27.8 % (36.0-47.0) Mean Corpuscular Volume 83 fL (79-100) Mean Corpuscular Hemoglobin 26 pg (25-35) Mean Corpuscular Hemoglobin Concent 32 g/dL (31-37) Red Cell Distribution Width 18.0 % (11.5-14.5) Platelet Count 127 x10^3/uL (140-400) Neutrophils (%) (Auto) 66 % (31-73) Lymphocytes (%) (Auto) 23 % (24-48) Monocytes (%) (Auto) 10 % (0-9) Eosinophils (%) (Auto) 1 % (0-3) Basophils (%) (Auto) 0 % (0-3) Neutrophils # (Auto) 4.3 x10^3uL (1.8-7.7) Lymphocytes # (Auto) 1.5 x10^3/uL (1.0-4.8) Monocytes # (Auto) 0.7 x10^3/uL (0.0-1.1) Eosinophils # (Auto) 0.0 x10^3/uL (0.0-0.7) Basophils # (Auto) 0.0 x10^3/uL (0.0-0.2) Sodium Level 140 mmol/L (136-145) Potassium Level 4.3 mmol/L (3.5-5.1) Chloride Level 101 mmol/L (98-107) Carbon Dioxide Level 26 mmol/L (21-32) Anion Gap 13 (6-14) Blood Urea Nitrogen 44 mg/dL (7-20) Creatinine 2.3 mg/dL (0.6-1.0) Estimated GFR (Cockcroft-Gault) 26.2 BUN/Creatinine Ratio 19 (6-20) Glucose Level 192 mg/dL (70-99) Lactic Acid Level 4.9 mmol/L (0.4-2.0) 2.9 mmol/L (0.4-2.0) Calcium Level 8.4 mg/dL (8.5-10.1) Total Bilirubin 0.5 mg/dL (0.2-1.0) Aspartate Amino Transf (AST/SGOT) 115 U/L (15-37) Alanine Aminotransferase (ALT/SGPT) 75 U/L (14-59) Alkaline Phosphatase 277 U/L (46-116) Troponin I Quantitative 0.806 ng/mL (0.000-0.055) NA-Ebi-L-Type Natriuretic Peptide 47680 pg/mL (0-124) Total Protein 9.1 g/dL (6.4-8.2) Albumin 3.0 g/dL (3.4-5.0) Albumin/Globulin Ratio 0.5 (1.0-1.7) Lipase 84 U/L (73-393) Glucose (Fingerstick) 172 mg/dL (70-99) Laboratory Tests Test 06/05/17 18:05 06/05/17 18:25 06/05/17 22:00 06/06/17 00:34 Influenza Type A Antigen Negative (NEGATIVE) Influenza Type B Antigen Negative (NEGATIVE) White Blood Count 6.5 x10^3/uL (4.0-11.0) Red Blood Count 3.37 x10^6/uL (3.50-5.40) Hemoglobin 8.8 g/dL (12.0-15.5) Hematocrit 27.8 % (36.0-47.0) Mean Corpuscular Volume 83 fL (79-100) Mean Corpuscular Hemoglobin 26 pg (25-35) Mean Corpuscular Hemoglobin Concent 32 g/dL (31-37) Red Cell Distribution Width 18.0 % (11.5-14.5) Platelet Count 127 x10^3/uL (140-400) Neutrophils (%) (Auto) 66 % (31-73) Lymphocytes (%) (Auto) 23 % (24-48) Monocytes (%) (Auto) 10 % (0-9) Eosinophils (%) (Auto) 1 % (0-3) Basophils (%) (Auto) 0 % (0-3) Neutrophils # (Auto) 4.3 x10^3uL (1.8-7.7) Lymphocytes # (Auto) 1.5 x10^3/uL (1.0-4.8) Monocytes # (Auto) 0.7 x10^3/uL (0.0-1.1) Eosinophils # (Auto) 0.0 x10^3/uL (0.0-0.7) Basophils # (Auto) 0.0 x10^3/uL (0.0-0.2) Sodium Level 140 mmol/L (136-145) Potassium Level 4.3 mmol/L (3.5-5.1) Chloride Level 101 mmol/L (98-107) Carbon Dioxide Level 26 mmol/L (21-32) Anion Gap 13 (6-14) Blood Urea Nitrogen 44 mg/dL (7-20) Creatinine 2.3 mg/dL (0.6-1.0) Estimated GFR (Cockcroft-Gault) 26.2 BUN/Creatinine Ratio 19 (6-20) Glucose Level 192 mg/dL (70-99) Lactic Acid Level 4.9 mmol/L (0.4-2.0) 2.9 mmol/L (0.4-2.0) Calcium Level 8.4 mg/dL (8.5-10.1) Total Bilirubin 0.5 mg/dL (0.2-1.0) Aspartate Amino Transf (AST/SGOT) 115 U/L (15-37) Alanine Aminotransferase (ALT/SGPT) 75 U/L (14-59) Alkaline Phosphatase 277 U/L (46-116) Troponin I Quantitative 0.806 ng/mL (0.000-0.055) YA-Nqd-C-Type Natriuretic Peptide 24583 pg/mL (0-124) Total Protein 9.1 g/dL (6.4-8.2) Albumin 3.0 g/dL (3.4-5.0) Albumin/Globulin Ratio 0.5 (1.0-1.7) Lipase 84 U/L (73-393) Glucose (Fingerstick) 172 mg/dL (70-99) Images Images CXR Impression: Mild pulmonary vascular congestion. DATE: 06/06/17 CT Abd, Pelvis The kidneys are symmetric in size. No hydronephrosis. Urinary bladder is within normal limits given degree of distention. Abdominal aorta is normal in course and caliber with mild atherosclerotic calcification. IMPRESSION: 1. Cardiomegaly with mild pulmonary vascular congestion and pulmonary edema compatible with congestive heart changes. 2. There is patchy opacity in the medial right middle lobe suspicious for pulmonary infiltrate. 3. Trace left pleural effusion. 4. No acute abnormality is identified in the abdomen or pelvis. Previous ECHO: The Ejection Fraction is 20%. There is severe global hypokinesis of the left ventricle. The mitral valve is calcified and displays decreased opening. Posterior mitral annular calcification is moderate to severe. Doppler and Color Flow revealed trace tricuspid regurgitation. There is moderate pulmonary hypertension. The PA pressure was estimated at 43 mmHg. There is a trace circumferential pericardial effusion. INGRID LOMBARDI MD Jun 06, 2017 08:18
[2017-06-06] MEDS ORDERED: MAGNESIUM SULFATE 2GM 50 ML IV PRN (08:30)
[2017-06-06] MEDS ORDERED: DOCU-109 PO (08:43)
[2017-06-06] MEDS ORDERED: POLY17PO29 PO (08:44)
--- NOTE | 2017-06-06 08:53 | PDOC ---
Infectious Disease Note Subjective Subjective Pt seen and examined [id number] Vital Sign Vital Signs Vital Signs Date Time Temp Pulse Resp B/P (MAP) Pulse Ox O2 Delivery O2 Flow Rate FiO2 06/06/17 08:07 Nasal Cannula 2.0 06/06/17 07:00 91 29 126/73 (90) 91 06/06/17 04:00 98.3 98.3 Labs Lab Laboratory Tests Test 06/05/17 18:05 06/05/17 18:25 06/05/17 22:00 06/06/17 00:34 Influenza Type A Antigen Negative (NEGATIVE) Influenza Type B Antigen Negative (NEGATIVE) White Blood Count 6.5 x10^3/uL (4.0-11.0) Red Blood Count 3.37 x10^6/uL (3.50-5.40) Hemoglobin 8.8 g/dL (12.0-15.5) Hematocrit 27.8 % (36.0-47.0) Mean Corpuscular Volume 83 fL (79-100) Mean Corpuscular Hemoglobin 26 pg (25-35) Mean Corpuscular Hemoglobin Concent 32 g/dL (31-37) Red Cell Distribution Width 18.0 % (11.5-14.5) Platelet Count 127 x10^3/uL (140-400) Neutrophils (%) (Auto) 66 % (31-73) Lymphocytes (%) (Auto) 23 % (24-48) Monocytes (%) (Auto) 10 % (0-9) Eosinophils (%) (Auto) 1 % (0-3) Basophils (%) (Auto) 0 % (0-3) Neutrophils # (Auto) 4.3 x10^3uL (1.8-7.7) Lymphocytes # (Auto) 1.5 x10^3/uL (1.0-4.8) Monocytes # (Auto) 0.7 x10^3/uL (0.0-1.1) Eosinophils # (Auto) 0.0 x10^3/uL (0.0-0.7) Basophils # (Auto) 0.0 x10^3/uL (0.0-0.2) Sodium Level 140 mmol/L (136-145) Potassium Level 4.3 mmol/L (3.5-5.1) Chloride Level 101 mmol/L (98-107) Carbon Dioxide Level 26 mmol/L (21-32) Anion Gap 13 (6-14) Blood Urea Nitrogen 44 mg/dL (7-20) Creatinine 2.3 mg/dL (0.6-1.0) Estimated GFR (Cockcroft-Gault) 26.2 BUN/Creatinine Ratio 19 (6-20) Glucose Level 192 mg/dL (70-99) Lactic Acid Level 4.9 mmol/L (0.4-2.0) 2.9 mmol/L (0.4-2.0) Calcium Level 8.4 mg/dL (8.5-10.1) Total Bilirubin 0.5 mg/dL (0.2-1.0) Aspartate Amino Transf (AST/SGOT) 115 U/L (15-37) Alanine Aminotransferase (ALT/SGPT) 75 U/L (14-59) Alkaline Phosphatase 277 U/L (46-116) Troponin I Quantitative 0.806 ng/mL (0.000-0.055) YT-Hgc-X-Type Natriuretic Peptide 44906 pg/mL (0-124) Total Protein 9.1 g/dL (6.4-8.2) Albumin 3.0 g/dL (3.4-5.0) Albumin/Globulin Ratio 0.5 (1.0-1.7) Lipase 84 U/L (73-393) Glucose (Fingerstick) 172 mg/dL (70-99) Micro BC GPC Objective Assessment IMP: Sepsis,lactic acidosis Bacteremia GPC in chains ,ID pending ASHLEY dehydration PNA Nausea and vomiting Anemia,chronic,b12 def Chestpain atypical Rt Shoulder pain Plan Plan of Care REC; Continue empiric Vanc ,pharmacy to dose continue cefepime moniitor creat closely repeat bc in am ua and urine c/s f/u c/s and labs CCT tiime spent 35 mins XANDER LOMBARDI MD Jun 06, 2017 08:53
[2017-06-06] MEDS ORDERED: ONDANSETRON PF 4 MG/2 ML VIAL. IV PRN (09:00)
[2017-06-06] MEDS ORDERED: HEPARIN for IV BOLUS 10,000 UNIT/10 ML VIAL. IV PRN (09:15)
[2017-06-06] MEDS ORDERED: HEPARIN for IV BOLUS 10,000 UNIT/10 ML VIAL. IV ONE (09:15)
--- NOTE | 2017-06-06 09:15 | CONS ---
DATE OF CONSULTATION: PRIMARY PHYSICIAN: Dr. Khan. CONSULTING PHYSICIAN: Dr. Guzmán. REASON FOR CONSULTATION: Chronic renal failure, adenopathy and acute infarct. HISTORY OF PRESENT ILLNESS: The patient is a 61-year-old -[place] female with 20 years of diabetes and diabetic retinopathy. She is known to have underlying CKD with a baseline creatinine of closer to 1.7 on most recent check, 01/2017. She presented to the ER yesterday with almost one month of cough and recent-onset yellow phlegm, sputum and chest wall pain, mostly pleuritic in nature, lasting the last 3 days. She initially did not have any fevers in the ER; however, she spiked a fever to 103 while in the ICU yesterday. She is known to have nonischemic cardiomyopathy with an EF of 20% and has been evaluated by Cardiology in the past. She does have some valvular heart disease as noted on the echocardiogram, outlined in the electronic Renal consult note. She was admitted to the ICU with sepsis protocol and is currently on pressors. She did admit to nausea, vomiting and shortness of breath in the ER. Currently denies nausea or vomiting. Mild subjective shortness of breath associated with her chest pain which is pleuritic in nature. She is also noted to have elevated lactic acid and elevated LFTs, currently. We were asked to see her for renal insufficiency. It is noted that her creatinine has gone up in the setting of hypotension and sepsis, and hence is deemed to have some acute renal failure also. Her urine output has been adequate by her reports, but not well documented. She denies NSAID use. She claims her p.o. intake has been adequate. 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 FAMILY HISTORY: Negative for known kidney problems. SOCIAL HISTORY: Nonsmoker, nondrinker currently. For rest of details, see electronic records. INGRID LOMBARDI MD DR: HEMANTH/king JOB#: [id number] / [id number]
--- NOTE | 2017-06-06 09:23 | CONS ---
DATE OF CONSULTATION: 06/06/2017 REASON FOR CONSULT: Sepsis. HISTORY OF PRESENT ILLNESS: A 61-year-old female with history of CHF, hypertension, nonischemic cardiomyopathy, defibrillator, presented to the ER with cough, yellow sputum production, chest wall pain, vomiting, and shortness of breath a few days prior to admission. She had fevers and chills. She denied any abdominal pain, diarrhea, flank pain, urinary symptoms, sore throat, headache, visual disturbances, chest pain with deep breathing, joint pain or rash. She had high lactate at 4.9, which has come down to 2.9. Her fever was 103 in the ER, her creatinine was up to 2.3. Blood cultures were drawn. AST, ALT, alkaline phos is high. She had evaluation for chest pain, which was negative. Her white count was 6.5. Influenza screen was negative. She was started on empiric vancomycin and cefepime. This morning, the patient says she feels a little better, still continues to have left-sided chest pain and right shoulder pain. She denies any nausea or vomiting this morning. Denies any abdominal pain or diarrhea. Continues to have cough, but somewhat improved. REVIEW OF SYSTEMS: General fever, nausea, vomiting, cough with yellow sputum, shortness of breath, chest pain, right shoulder pain, otherwise negative. PAST MEDICAL HISTORY: 1. Nonischemic cardiomyopathy with defibrillator in place. 2. CHF. 3. Hypertension. 4. Osteoporosis. 5. B12 deficiency. 6. Anemia. 7. Diabetes. 8. Hyperlipidemia. ALLERGIES: IODINE, CELEBREX, and CIPRO. FAMILY HISTORY: As in H and P. SOCIAL HISTORY: Denies smoking, ETOH, or illicit drug use. Lives with her . MEDICATIONS: Antimicrobials, IV cefepime, IV vancomycin. Other medications reviewed. PHYSICAL EXAMINATION: VITAL SIGNS: Temperature, T-max 103; pulse 110; respiratory rate 22; blood pressure 123/69 on admission. Currently her temperature is 98.3, pulse is 92, respiration rate 19, blood pressure 109/58, oxygen saturation 100% on 2 liters. GENERAL: The patient appears weak, tired looking. HEENT: Normocephalic, atraumatic, anicteric. Mild eyelid swelling. Extraocular movements intact. Pupils reactive. No oral lesions. NECK: Supple, no JVD. LUNGS: Decreased breath sounds bilaterally in the bases. No wheezing. HEART: S1, S2; tachycardia. No gallops or murmurs. Previous defibrillator site looks okay. ABDOMEN: Soft. Bowel sounds present. No hepatosplenomegaly, no rebound, no guarding. EXTREMITIES: No edema, no cyanosis, no clubbing. DERMATOLOGIC: No generalized skin rash. IV LINE: PIV looks okay. MUSCULOSKELETAL: No joint swelling. No effusion. PSYCHIATRIC: Appropriate mood, cooperative. LABORATORY DATA: WBC 6.5, hemoglobin 8.8, hematocrit 27.8, platelets 127, neutrophils 66, lymphocytes 23, monocytes 10. Sodium 140, potassium 4.3, chloride 101, bicarbonate 26, BUN 44, creatinine 2.3, glucose 192, calcium 8.4, total bilirubin 0.5, AST 115, ALT 75, alkaline phosphatase 277, total protein 9.1, albumin 3.0, lipase 84. Influenza screen negative. UA not available. Blood culture reported positive for GPC per discussion with nurse, ID and TANJA pending at this time. IMAGING: Chest x-ray shows mild pulmonary venous congestion. CT abdomen, chest, pelvis shows: 1. Cardiomegaly with mild pulmonary venous congestion and pulmonary edema compatible with congestive heart changes. 2. There is patchy opacity in the middle, right lobe suspicious for pulmonary infiltrate. 3. Trace left pleural effusion. 4. No acute abnormalities identified in the abdomen or pelvis. IMPRESSION: 1. Sepsis. 2. Gram-positive bacteremia. ID and TANJA pending, likely strep source could be pneumonia. 3. Nausea and vomiting, resolved. 4. Pulmonary infiltrate. 5. [id number]-ibyqmcq systolic and diastolic heart failure. 6. History of anemia. 7. History of diabetes. 8. Transaminitis, possibly from sepsis. 9. Acute kidney injury. 10. Chest pain. High BNP at 14,313. Cardiology following 11. Dilated cardiomyopathy with pacemaker placed, left chest wall looks okay. 12. Right shoulder pain. 13. Osteoporosis. 14. History of B12 deficiency. 15. Chronic anemia. 16. Hyperlipidemia. 17. ALLERGIES to CIPRO. RECOMMENDATIONS: 1. Continue empiric IV vancomycin and cefepime. Pharmacy to dose vancomycin and monitor creatinine closely as patient has ASHLEY. 2.. Follow up culture and susceptibility results. 3.. We will order blood cultures for tomorrow morning. 4.. Depending on ID and TANJA of organism, may need echocardiogram. 5.. Continue supportive care. Thank you, Dr. Khan, for consulting Infectious Disease to participate in this patient's care. If you have any questions, please call me. XANDER LOMBARDI MD DR: NESTOR/king JOB#: [id number] / [id number] YOHANA
--- NOTE | 2017-06-06 09:37 | EKG ---
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
[2017-06-06] MEDS ORDERED: ATOR40TA59 PO (09:53)
[2017-06-06] MEDS ORDERED: SACU1TAB7 PO (09:53)
[2017-06-06] MEDS ORDERED: CARV6.25 PO (09:54)
--- NOTE | 2017-06-06 09:58 | PDOC2 ---
HARSHIL KEMP AIRPORT OPERATIONS SPECIALIST 06/06/17 0958: CARDIAC CONSULT DATE OF CONSULT Date of Consult DATE: 06/06/17 TIME: 09:13 REASON FOR CONSULT Reason for Consult: CHF REFERRING PHYSICIAN Referring Physician: Ramirez SOURCE Source: Chart review, Patient HISTORY OF PRESENT ILLNESS HISTORY OF PRESENT ILLNESS This is a pleasant 61 yo female admitted for complains of cough. Reports that she had prior nasal congestion. Lately she has been coughing and at most time nonproductive. She does not report any recorded fever but had chills yesterday. In the last 2 days she has been having left chest pressures and right shoulder discomfort. She had vomiting episode yesterday. It has been hard for her to breath when laying falt and positive for PHILLIPS but not much different from her baseline. She is known for Nonobstructive CAD from 06/2015 but she does have moderate lesion to her LAD. Known for NICM and requiring upgrade to OCC THER-d on 01/2017. Presently she is coughing but in no respiratory distress and still is having some chest pain. Upon admission she has been noted with bacteremia, fever, CHF. Presently her chest pain is reproducible with palpation. No further n/v. PAST MEDICAL HISTORY Past Medical History Cardiovascular: CAD (non-obstructive ), CHF, HTN, NH (NSTEMI), Hyperlipidemia CENTRAL NERVOUS SYSTEM: Peripheral neuropathy GI: GERD Heme/Onc: No pertinent hx Hepatobiliary: No pertinent hx Psych: No pertinent hx Musculoskeletal: low back pain, Osteoarthritis, Other (osteomyelitis ) Rheumatologic: No pertinent hx Infectious disease: No pertinent hx ENT: No pertinent hx Renal/: Chronic renal insuff Endocrine: Diabetes PAST SURGICAL HISTORY Past Surgical History Pacemaker (removed due to infection), Cholecystectomy, Cataract Removal, Tonsillectomy, Hysterectomy, Other (back sx) Successful implantation of Biotronik biventricular ICD/OCC THER-D for primary prevention of sudden cardiac and cardiac resynchronization therapy in a patient with severe nonischemic cardiomyopathy and bundle branch block.01/20/2017 FAMILY HISTORY Family History Diabetes, Heart Disease, Hypertension SOCIAL HISTORY Smoke: No ALCOHOL: none Drugs: None Lives: with Family CURRENT MEDICATIONS CURRENT MEDICATIONS Current Medications Medications (Trade) Dose Ordered Sig/Wilfrid Route PRN Reason Start Time Stop Time Status Last Admin Dose Admin Ondansetron HCl (Zofran) 8 mg 1X ONCE IV 06/05/17 18:30 06/05/17 18:31 DC 06/05/17 18:36 Aspirin (Children'S Aspirin) 324 mg 1X ONCE PO 06/05/17 19:45 06/05/17 19:46 DC 06/05/17 19:48 Sodium Chloride 1,000 ml @ 1,000 mls/hr 1X ONCE IV 06/05/17 20:00 06/05/17 20:59 DC 06/05/17 20:12 Cefepime HCl (Maxipime) 2 gm Q12HR IVP 06/05/17 21:00 06/05/17 21:44 Sodium Chloride 1,000 ml @ 75 mls/hr [id number] IV 06/05/17 20:06 06/06/17 20:05 06/05/17 21:48 Vancomycin HCl (Vanco Per Pharmacy) 1 each PRN DAILY PRN MC SEE COMMENTS 06/05/17 20:15 06/05/17 22:01 Acetaminophen (Tylenol) 1,000 mg 1X ONCE PO 06/05/17 20:15 06/05/17 20:21 DC 06/05/17 20:17 Vancomycin HCl 2 gm/Dextrose/ Sodium Chloride 500 ml @ 250 mls/hr 1X ONCE IV 06/05/17 21:00 06/05/17 22:59 DC 06/05/17 21:45 Norepinephrine Bitartrate 250 ml @ 0 mls/hr CONT PRN IV SEE I/O RECORD 06/05/17 22:45 06/05/17 23:13 ALLERGIES ALLERGIES: Coded Allergies: Iodinated Contrast- Oral and IV Dye (Verified Allergy, Intermediate, Itching, 01/20/17) No visible hives or redness, no difficulty breathing. Patient complained of intense all-over body itching. celecoxib (Verified Allergy, Intermediate, 12/07/16) HAS TOLERATED ASA ciprofloxacin (Verified Allergy, Intermediate, 04/16/15) ROS Review of System 14 point ROS evaluated with pertinent positives noted per HPI PHYSICAL EXAM General: Alert, Oriented X3, Cooperative, No acute distress HEENT: Atraumatic, Mucous membr. moist/pink Lungs: Other (upper rhonchi, basilar crackles) Heart: Regular rate (Paced), Other (3/6/systolic murmur to LLS border) Abdomen: Soft Extremities: No cyanosis, No edema Skin: No breakdown, No significant lesion Neuro: Normal speech, Sensation intact Psych/Mental Status: Mental status NL, Mood NL MUSCULOSKELETAL: Osteoarthritic changes both hands VITALS VITALS Vital Signs Date Time Temp Pulse Resp B/P (MAP) Pulse Ox O2 Delivery O2 Flow Rate FiO2 06/06/17 08:07 Nasal Cannula 2.0 06/06/17 07:00 91 29 126/73 (90) 91 06/06/17 04:00 98.3 98.3 LABS Lab: Laboratory Tests Test 06/05/17 18:05 06/05/17 18:25 06/05/17 22:00 06/06/17 00:34 Influenza Type A Antigen Negative (NEGATIVE) Influenza Type B Antigen Negative (NEGATIVE) White Blood Count 6.5 x10^3/uL (4.0-11.0) Red Blood Count 3.37 x10^6/uL (3.50-5.40) Hemoglobin 8.8 g/dL (12.0-15.5) Hematocrit 27.8 % (36.0-47.0) Mean Corpuscular Volume 83 fL (79-100) Mean Corpuscular Hemoglobin 26 pg (25-35) Mean Corpuscular Hemoglobin Concent 32 g/dL (31-37) Red Cell Distribution Width 18.0 % (11.5-14.5) Platelet Count 127 x10^3/uL (140-400) Neutrophils (%) (Auto) 66 % (31-73) Lymphocytes (%) (Auto) 23 % (24-48) Monocytes (%) (Auto) 10 % (0-9) Eosinophils (%) (Auto) 1 % (0-3) Basophils (%) (Auto) 0 % (0-3) Neutrophils # (Auto) 4.3 x10^3uL (1.8-7.7) Lymphocytes # (Auto) 1.5 x10^3/uL (1.0-4.8) Monocytes # (Auto) 0.7 x10^3/uL (0.0-1.1) Eosinophils # (Auto) 0.0 x10^3/uL (0.0-0.7) Basophils # (Auto) 0.0 x10^3/uL (0.0-0.2) Sodium Level 140 mmol/L (136-145) Potassium Level 4.3 mmol/L (3.5-5.1) Chloride Level 101 mmol/L (98-107) Carbon Dioxide Level 26 mmol/L (21-32) Anion Gap 13 (6-14) Blood Urea Nitrogen 44 mg/dL (7-20) Creatinine 2.3 mg/dL (0.6-1.0) Estimated GFR (Cockcroft-Gault) 26.2 BUN/Creatinine Ratio 19 (6-20) Glucose Level 192 mg/dL (70-99) Lactic Acid Level 4.9 mmol/L (0.4-2.0) 2.9 mmol/L (0.4-2.0) Calcium Level 8.4 mg/dL (8.5-10.1) Total Bilirubin 0.5 mg/dL (0.2-1.0) Aspartate Amino Transf (AST/SGOT) 115 U/L (15-37) Alanine Aminotransferase (ALT/SGPT) 75 U/L (14-59) Alkaline Phosphatase 277 U/L (46-116) Troponin I Quantitative 0.806 ng/mL (0.000-0.055) PH-Zwn-[id number]-Type Natriuretic Peptide 44120 pg/mL (0-124) Total Protein 9.1 g/dL (6.4-8.2) Albumin 3.0 g/dL (3.4-5.0) Albumin/Globulin Ratio 0.5 (1.0-1.7) Lipase 84 U/L (73-393) Glucose (Fingerstick) 172 mg/dL (70-99) Test 06/06/17 08:05 Troponin I Quantitative 22.156 ng/mL (0.000-0.055) ECHOCARDIOGRAM ECHOCARDIOGRAM <Conclusion> The Ejection Fraction is 20%. There is severe global hypokinesis of the left ventricle. The mitral valve is calcified and displays decreased opening. Posterior mitral annular calcification is moderate to severe. Doppler and Color Flow revealed trace tricuspid regurgitation. There is moderate pulmonary hypertension. The PA pressure was estimated at 43 mmHg. There is a trace circumferential pericardial effusion. DATE: 10/14/16 1352 STRESS TEST STRESS TEST Conclusion 1. Regadenoson cardioisotope stress test showed diaphragmatic attenuation artifact without any diagnostic evidence of ischemia or infarct. 2. Moderate global left ventricle systolic dysfunction with ejection fraction calculated at 32%. 3. Intermediate risk for cardiac events based on diminished left ventricle systolic function. DATE: 10/17/16 1358 HEART CATH HEART CATH Hemodynamics. Left ventricular pressure 140/14, aortic root pressure 138/74. Coronaries. Left main. The left main had no lesions. Left anterior descending. The patient was a moderate size vessel with a wraparound anatomy. It had a 40-50% mid lesion and a more distal 35% lesion as well as a first diagonal branch with a 35% lesion. Left circumflex. The left circumflex is a smaller nondominant vessel with a mid 30% lesion. Right coronary artery. The right coronary was a larger dominant vessel with a mid 15% lesion. Fractional flow reserve of the LAD lesion was normal with a measurement of 0.94. <Conclusion> Mild to moderate coronary artery disease with calcified vessels but no hemodynamically significant lesions. Normal left ventricular EDP. DATE: 07/16/15 0915 ASSESSMENT/PLAN ASSESSMENT/PLAN 1. NSTEMI: Troponin now at 22. Mixed features. 2. NICM: Last EF 20% NYHA 2 3. CAD; non-obstructive per cath in 06/2015 4. OCC THER-d insitu: Biotronik. Paced. 5. Hypertension; controlled 6. Bacteremia: BC shows G+, ID following. Fever T max 103 7. ASHLEY on CKD3: prior Cr at 1.7, presently Cr at 2.3. Nephrology has been consulted. 8. DM2/HLP 9. Anemia of chronic disease Recommendations 1. Repeat EKG 2. TTE 3. Start on heparin drip. Will resume BP meds per BP trend. Continue with secondary prevention 3. ASA. Will hold entresto for now. 4. Will interrogate device. 5. Lasix x1 today, continue with levophed 6. CMP, CBC, Mg today. Await labs 7. Ischemic w/u possibly tomorrow, Continue optimization will discuss with primary sports psychologist. Problems: LAUREL MENDOZA MD 06/06/17 1637: CARDIAC CONSULT ALLERGIES ALLERGIES: Coded Allergies: Iodinated Contrast- Oral and IV Dye (Verified Allergy, Intermediate, Itching, 01/20/17) No visible hives or redness, no difficulty breathing. Patient complained of intense all-over body itching. celecoxib (Verified Allergy, Intermediate, 12/07/16) HAS TOLERATED ASA ciprofloxacin (Verified Allergy, Intermediate, 10/29/15) ASSESSMENT/PLAN ASSESSMENT/PLAN Patient seen and examined. Agree with CLOTH LAMINATING SUPERVISOR's assessment and plan. Patient chest pain-free and telemetry did not show any significant arrhythmias Continue workup and treatment for sepsis per ID team Continue intravenous heparin per protocol Plan for cardiac catheterization to evaluate her non-STEMI with significant elevation of troponin level once active issues resolve Thank you for your consultation Problems: HARSHIL KEMP APRN Jun 06, 2017 09:58 LAUREL MENDOZA MD Jun 06, 2017 16:37
[2017-06-06 09:59] LABS: % SAT IRON 6 % (15-34); IRON,SERUM 12 ug/dL (50-170)
[2017-06-06] MEDS ORDERED: FUROSEMIDE 40 MG/4 ML VIAL. IVP ONE (10:00)
[2017-06-06 10:07] LABS: BASO % 0 % (0-3); EOS % 0 % (0-3); HEMATOCRIT 27.8 % (36.0-47.0); HEMOGLOBIN 8.8 g/dL (12.0-15.5); LYMPH # 0.8 x10^3/uL (1.0-4.8); LYMPH % 5 % (24-48); MEAN CORPUSCULAR HEMOGLOBIN 26 pg (25-35); MEAN CORPUSCULAR HGB CONC 32 g/dL (31-37); MEAN CORPUSCULAR VOLUME 83 fL (79-100); MONO % 8 % (0-9); NEUT % 87 % (31-73); PLATELET COUNT 104 x10^3/uL (140-400); RED BLOOD COUNT 3.36 x10^6/uL (3.50-5.40); RED CELL DISTRIBUTION WIDTH 17.8 % (11.5-14.5)
[2017-06-06 10:12] LABS: CALCIUM 8.4 mg/dL (8.5-10.1); CREATININE 2.8 mg/dL (0.6-1.0); GFR 20.9
[2017-06-06 10:19] LABS: ALBUMIN 2.8 g/dL (3.4-5.0); ALBUMIN/GLOBULIN RATIO 0.5 (1.0-1.7); TOTAL BILIRUBIN 0.8 mg/dL (0.2-1.0); TOTAL PROTEIN 8.6 g/dL (6.4-8.2)
[2017-06-06] MEDS: HEPARIN 25,000UTS/500ML PREMIX 500 ML IV PRN (10:20)
--- NOTE | 2017-06-06 10:21 | PDOC ---
PROGRESS NOTES Chief Complaint Chief Complaint Severe cardiomyopathy with EF 20%, severe global hypokinesis Possible sepsis, septic shock requiring pressors Cough, fevers, tachycardia, AK I on CK D, elevated lactate, elevated BNP, anemia of chronic disease, Overweight BMI 29.5 M positive bacteremia Diabetes type 2 Pacemaker/AICD in situ N STEMI, dyslipidemia History of Present Illness History of Present Illness Seen in ICU, on levophed 30 mics Still coughing in between phrases No increase in SOA. No chest pain She thinks he feels better but she looks very weak and still sick Flu a and B is negative She claims compliance to Lasix There is no leg edema Cardiology, renal, infectious disease are all on board PLAn: Keep in ICU is currently on Levothroid drip Recheck labs tomorrow, monitor lactate as it is still elevated Tylenol for fevers Follow cultures so far gram-positive bacteremia in 1 set Follow subspecialists input Keep in ICU Cough is yellowish sputum can't check for Gram stain etc. but usually yield is low cc 30 minutes Vitals Vitals Vital Signs Date Time Temp Pulse Resp B/P (MAP) Pulse Ox O2 Delivery O2 Flow Rate FiO2 06/06/17 08:07 Nasal Cannula 2.0 06/06/17 07:00 91 29 126/73 (90) 91 06/06/17 04:00 98.3 98.3 Physical Exam General: Alert, Oriented X3, Cooperative, No acute distress Heart: Regular rate (Paced), Other (3/6/systolic murmur to LLS border) Lungs: Clear, Other Abdomen: Soft Extremities: No cyanosis, No edema Skin: No breakdown, No significant lesion Labs LABS Laboratory Tests Test 06/05/17 18:05 06/05/17 18:25 06/05/17 22:00 06/06/17 00:34 Influenza Type A Antigen Negative (NEGATIVE) Influenza Type B Antigen Negative (NEGATIVE) White Blood Count 6.5 x10^3/uL (4.0-11.0) Red Blood Count 3.37 x10^6/uL (3.50-5.40) Hemoglobin 8.8 g/dL (12.0-15.5) Hematocrit 27.8 % (36.0-47.0) Mean Corpuscular Volume 83 fL (79-100) Mean Corpuscular Hemoglobin 26 pg (25-35) Mean Corpuscular Hemoglobin Concent 32 g/dL (31-37) Red Cell Distribution Width 18.0 % (11.5-14.5) Platelet Count 127 x10^3/uL (140-400) Neutrophils (%) (Auto) 66 % (31-73) Lymphocytes (%) (Auto) 23 % (24-48) Monocytes (%) (Auto) 10 % (0-9) Eosinophils (%) (Auto) 1 % (0-3) Basophils (%) (Auto) 0 % (0-3) Neutrophils # (Auto) 4.3 x10^3uL (1.8-7.7) Lymphocytes # (Auto) 1.5 x10^3/uL (1.0-4.8) Monocytes # (Auto) 0.7 x10^3/uL (0.0-1.1) Eosinophils # (Auto) 0.0 x10^3/uL (0.0-0.7) Basophils # (Auto) 0.0 x10^3/uL (0.0-0.2) Sodium Level 140 mmol/L (136-145) Potassium Level 4.3 mmol/L (3.5-5.1) Chloride Level 101 mmol/L (98-107) Carbon Dioxide Level 26 mmol/L (21-32) Anion Gap 13 (6-14) Blood Urea Nitrogen 44 mg/dL (7-20) Creatinine 2.3 mg/dL (0.6-1.0) Estimated GFR (Cockcroft-Gault) 26.2 BUN/Creatinine Ratio 19 (6-20) Glucose Level 192 mg/dL (70-99) Lactic Acid Level 4.9 mmol/L (0.4-2.0) 2.9 mmol/L (0.4-2.0) Calcium Level 8.4 mg/dL (8.5-10.1) Total Bilirubin 0.5 mg/dL (0.2-1.0) Aspartate Amino Transf (AST/SGOT) 115 U/L (15-37) Alanine Aminotransferase (ALT/SGPT) 75 U/L (14-59) Alkaline Phosphatase 277 U/L (46-116) Troponin I Quantitative 0.806 ng/mL (0.000-0.055) QH-Isj-H-Type Natriuretic Peptide 05232 pg/mL (0-124) Total Protein 9.1 g/dL (6.4-8.2) Albumin 3.0 g/dL (3.4-5.0) Albumin/Globulin Ratio 0.5 (1.0-1.7) Lipase 84 U/L (73-393) Glucose (Fingerstick) 172 mg/dL (70-99) Test 06/06/17 08:05 06/06/17 09:20 Troponin I Quantitative 22.156 ng/mL (0.000-0.055) Reticulocyte Count (auto) 0.9 % (0.5-2.5) Sodium Level 141 mmol/L (136-145) Potassium Level 4.0 mmol/L (3.5-5.1) Chloride Level 103 mmol/L (98-107) Carbon Dioxide Level 25 mmol/L (21-32) Anion Gap 13 (6-14) Blood Urea Nitrogen 49 mg/dL (7-20) Creatinine 2.8 mg/dL (0.6-1.0) Estimated GFR (Cockcroft-Gault) 20.9 BUN/Creatinine Ratio 18 (6-20) Glucose Level 177 mg/dL (70-99) Calcium Level 8.4 mg/dL (8.5-10.1) Magnesium Level 1.3 mg/dL (1.8-2.4) Iron Level 12 ug/dL (50-170) Total Iron Binding Capacity 187 ug/dL (250-450) Iron Saturation 6 % (15-34) Review of Systems Review of Systems Weak, coughing, SOA, no chest pain, no diarrhea, no abdominal pain, no presyncopal symptoms A 14 point ROS was completed with the following noted as positive: Other systems reviewed and negative. \CONSTITUTIONAL: No fever or chills EYES: No recent changes SKIN: No rash or itching CARDIOVASCULAR: No chest pain, syncope, palpitations, or edema RESPIRATORY: No SOB or cough GASTROINTESTINAL: No nausea, vomiting or abdominal pain NEUROLOGICAL: No headaches or weakness ENDOCRINE: No cold or heat intolerance GENITOURINARY: No urgency or frequency of urination MUSCULOSKELETAL: No back pain or joint pain LYMPHATICS: No enlarged lymph nodes PSYCHIATRIC: No anxiety or depression Assessment and Plan Assessmemt and Plan Problems Medical Problems: (1) Congestive heart disease Status: Acute (2) Elevated troponin Status: Acute (3) Pneumonia Status: Acute (4) Sepsis Status: Acute Problems: Comment Review of Relevant I have reviewed the following items bro (where applicable) has been applied. Labs Laboratory Tests Test 06/05/17 18:05 06/05/17 18:25 06/05/17 22:00 06/06/17 00:34 Influenza Type A Antigen Negative (NEGATIVE) Influenza Type B Antigen Negative (NEGATIVE) White Blood Count 6.5 x10^3/uL (4.0-11.0) Red Blood Count 3.37 x10^6/uL (3.50-5.40) Hemoglobin 8.8 g/dL (12.0-15.5) Hematocrit 27.8 % (36.0-47.0) Mean Corpuscular Volume 83 fL (79-100) Mean Corpuscular Hemoglobin 26 pg (25-35) Mean Corpuscular Hemoglobin Concent 32 g/dL (31-37) Red Cell Distribution Width 18.0 % (11.5-14.5) Platelet Count 127 x10^3/uL (140-400) Neutrophils (%) (Auto) 66 % (31-73) Lymphocytes (%) (Auto) 23 % (24-48) Monocytes (%) (Auto) 10 % (0-9) Eosinophils (%) (Auto) 1 % (0-3) Basophils (%) (Auto) 0 % (0-3) Neutrophils # (Auto) 4.3 x10^3uL (1.8-7.7) Lymphocytes # (Auto) 1.5 x10^3/uL (1.0-4.8) Monocytes # (Auto) 0.7 x10^3/uL (0.0-1.1) Eosinophils # (Auto) 0.0 x10^3/uL (0.0-0.7) Basophils # (Auto) 0.0 x10^3/uL (0.0-0.2) Sodium Level 140 mmol/L (136-145) Potassium Level 4.3 mmol/L (3.5-5.1) Chloride Level 101 mmol/L (98-107) Carbon Dioxide Level 26 mmol/L (21-32) Anion Gap 13 (6-14) Blood Urea Nitrogen 44 mg/dL (7-20) Creatinine 2.3 mg/dL (0.6-1.0) Estimated GFR (Cockcroft-Gault) 26.2 BUN/Creatinine Ratio 19 (6-20) Glucose Level 192 mg/dL (70-99) Lactic Acid Level 4.9 mmol/L (0.4-2.0) 2.9 mmol/L (0.4-2.0) Calcium Level 8.4 mg/dL (8.5-10.1) Total Bilirubin 0.5 mg/dL (0.2-1.0) Aspartate Amino Transf (AST/SGOT) 115 U/L (15-37) Alanine Aminotransferase (ALT/SGPT) 75 U/L (14-59) Alkaline Phosphatase 277 U/L (46-116) Troponin I Quantitative 0.806 ng/mL (0.000-0.055) HQ-Cbn-J-Type Natriuretic Peptide 17152 pg/mL (0-124) Total Protein 9.1 g/dL (6.4-8.2) Albumin 3.0 g/dL (3.4-5.0) Albumin/Globulin Ratio 0.5 (1.0-1.7) Lipase 84 U/L (73-393) Glucose (Fingerstick) 172 mg/dL (70-99) Test 06/06/17 08:05 06/06/17 09:20 Troponin I Quantitative 22.156 ng/mL (0.000-0.055) Reticulocyte Count (auto) 0.9 % (0.5-2.5) Sodium Level 141 mmol/L (136-145) Potassium Level 4.0 mmol/L (3.5-5.1) Chloride Level 103 mmol/L (98-107) Carbon Dioxide Level 25 mmol/L (21-32) Anion Gap 13 (6-14) Blood Urea Nitrogen 49 mg/dL (7-20) Creatinine 2.8 mg/dL (0.6-1.0) Estimated GFR (Cockcroft-Gault) 20.9 BUN/Creatinine Ratio 18 (6-20) Glucose Level 177 mg/dL (70-99) Calcium Level 8.4 mg/dL (8.5-10.1) Magnesium Level 1.3 mg/dL (1.8-2.4) Iron Level 12 ug/dL (50-170) Total Iron Binding Capacity 187 ug/dL (250-450) Iron Saturation 6 % (15-34) Laboratory Tests Test 06/05/17 18:05 06/05/17 18:25 06/05/17 22:00 06/06/17 00:34 Influenza Type A Antigen Negative (NEGATIVE) Influenza Type B Antigen Negative (NEGATIVE) White Blood Count 6.5 x10^3/uL (4.0-11.0) Red Blood Count 3.37 x10^6/uL (3.50-5.40) Hemoglobin 8.8 g/dL (12.0-15.5) Hematocrit 27.8 % (36.0-47.0) Mean Corpuscular Volume 83 fL (79-100) Mean Corpuscular Hemoglobin 26 pg (25-35) Mean Corpuscular Hemoglobin Concent 32 g/dL (31-37) Red Cell Distribution Width 18.0 % (11.5-14.5) Platelet Count 127 x10^3/uL (140-400) Neutrophils (%) (Auto) 66 % (31-73) Lymphocytes (%) (Auto) 23 % (24-48) Monocytes (%) (Auto) 10 % (0-9) Eosinophils (%) (Auto) 1 % (0-3) Basophils (%) (Auto) 0 % (0-3) Neutrophils # (Auto) 4.3 x10^3uL (1.8-7.7) Lymphocytes # (Auto) 1.5 x10^3/uL (1.0-4.8) Monocytes # (Auto) 0.7 x10^3/uL (0.0-1.1) Eosinophils # (Auto) 0.0 x10^3/uL (0.0-0.7) Basophils # (Auto) 0.0 x10^3/uL (0.0-0.2) Sodium Level 140 mmol/L (136-145) Potassium Level 4.3 mmol/L (3.5-5.1) Chloride Level 101 mmol/L (98-107) Carbon Dioxide Level 26 mmol/L (21-32) Anion Gap 13 (6-14) Blood Urea Nitrogen 44 mg/dL (7-20) Creatinine 2.3 mg/dL (0.6-1.0) Estimated GFR (Cockcroft-Gault) 26.2 BUN/Creatinine Ratio 19 (6-20) Glucose Level 192 mg/dL (70-99) Lactic Acid Level 4.9 mmol/L (0.4-2.0) 2.9 mmol/L (0.4-2.0) Calcium Level 8.4 mg/dL (8.5-10.1) Total Bilirubin 0.5 mg/dL (0.2-1.0) Aspartate Amino Transf (AST/SGOT) 115 U/L (15-37) Alanine Aminotransferase (ALT/SGPT) 75 U/L (14-59) Alkaline Phosphatase 277 U/L (46-116) Troponin I Quantitative 0.806 ng/mL (0.000-0.055) XV-Eqd-X-Type Natriuretic Peptide 05656 pg/mL (0-124) Total Protein 9.1 g/dL (6.4-8.2) Albumin 3.0 g/dL (3.4-5.0) Albumin/Globulin Ratio 0.5 (1.0-1.7) Lipase 84 U/L (73-393) Glucose (Fingerstick) 172 mg/dL (70-99) Test 06/06/17 08:05 06/06/17 09:20 Troponin I Quantitative 22.156 ng/mL (0.000-0.055) Reticulocyte Count (auto) 0.9 % (0.5-2.5) Sodium Level 141 mmol/L (136-145) Potassium Level 4.0 mmol/L (3.5-5.1) Chloride Level 103 mmol/L (98-107) Carbon Dioxide Level 25 mmol/L (21-32) Anion Gap 13 (6-14) Blood Urea Nitrogen 49 mg/dL (7-20) Creatinine 2.8 mg/dL (0.6-1.0) Estimated GFR (Cockcroft-Gault) 20.9 BUN/Creatinine Ratio 18 (6-20) Glucose Level 177 mg/dL (70-99) Calcium Level 8.4 mg/dL (8.5-10.1) Magnesium Level 1.3 mg/dL (1.8-2.4) Iron Level 12 ug/dL (50-170) Total Iron Binding Capacity 187 ug/dL (250-450) Iron Saturation 6 % (15-34) Microbiology 06/05/17 Blood Culture - Final, Complete Medications Current Medications Ondansetron HCl (Zofran) 8 mg 1X ONCE IV Last administered on 06/05/17 18:36 ; Start 06/05/17 at 18:30; Stop 06/05/17 at 18:31; Status DC Aspirin (Children'S Aspirin) 324 mg 1X ONCE PO Last administered on 19:48; Start 06/05/17 at 19:45; Stop 06/05/17 at 19:46; Status DC Sodium Chloride 1,000 ml @ 1,000 mls/hr 1X ONCE IV Last administered on 06/05 20:12; Start 06/05/17 at 20:00; Stop 06/05/17 at 20:59; Status DC Cefepime HCl 2 gm/ Dextrose 100 ml @ 200 mls/hr 1X ONCE IV ; Start 06/05/17 at 20:00; Stop 06/05/17 at 20:04; Status DC Cefepime HCl (Maxipime) 2 gm Q12HR IVP Last administered on 06/05/17 21:44; Start 06/05/17 at 21:00 Ondansetron HCl (Zofran) 4 mg PRN Q8HRS PRN IV NAUSEA/VOMITING; Start at 20:15; Stop 06/06/17 at 08:52; Status DC Sodium Chloride 1,000 ml @ 75 mls/hr [id number] IV Last administered on 21:48; Start 06/05/17 at 20:06; Stop 06/06/17 at 20:05 Albuterol/ Ipratropium (Duoneb) 3 ml RTQID NEB ; Start 06/06/17 at 08:00; Stop 06/07/17 at 07:59 Acetaminophen (Tylenol) 650 mg PRN Q6HRS PRN PO fever; Start 06/05/17 at 20:15 Vancomycin HCl (Vanco Per Pharmacy) 1 each PRN DAILY PRN MC SEE COMMENTS Last administered on 06/05/17 22:01; Start 06/05/17 at 20:15 Acetaminophen (Tylenol) 1,000 mg 1X ONCE PO Last administered on 06/05/17 20 :17; Start 06/05/17 at 20:15; Stop 06/05/17 at 20:21; Status DC Vancomycin HCl 2 gm/Dextrose/ Sodium Chloride 500 ml @ 250 mls/hr 1X ONCE IV Last administered on 06/05/17t 21:45; Start 06/05/17 at 21:00; Stop 06/05/17 at 22:59; Status DC Vancomycin HCl 1.25 gm/Sodium Chloride 250 ml @ 167 mls/hr Q24H IV ; Start at 22:00 Vancomycin HCl 1 each 1X ONCE MC ; Start 06/07/17 at 21:30; Stop 06/07/17 at 21:31 Norepinephrine Bitartrate 250 ml @ 0 mls/hr CONT PRN IV SEE I/O RECORD Last administered on 06/05/17t 23:13; Start 06/05/17 at 22:45 Magnesium Sulfate/ Dextrose 50 ml @ 25 mls/hr PRN DAILY PRN IV for Mag < 1.7 on am labs; Start 06/06/17 at 08:30 Ondansetron HCl (Zofran) 4 mg PRN Q6HRS PRN IV NAUSEA/VOMITING; Start at 09:00; Stop 06/07/17 at 08:59 Guaifenesin (Robitussin Dm) 10 ml QID PO ; Start 06/06/17 at 09:00 Heparin Sodium (Porcine) (Heparin Sodium) 4,000 unit 1X ONCE IV ; Start at 09:15; Stop 06/06/17 at 09:21; Status DC Heparin Sodium/ Dextrose 500 ml @ 0 mls/hr CONT PRN IV SEE I/O RECORD; Start 06/06/17 at 09:15 Heparin Sodium (Porcine) (Heparin Sodium) 2,000 unit PRN Q6HRS PRN IV FOR UFH LEVEL LESS THAN 0.2; Start 06/06/17 at 09:15 Furosemide (Lasix) 40 mg 1X ONCE IVP Last administered on 06/06/17t 10:09; Start 06/06/17 at 10:00; Stop 06/06/17 at 10:01; Status DC Aspirin (Ecotrin) 81 mg [id number] PO ; Start 06/07/17 at 08:00 Active Scripts Active Cyclobenzaprine Hcl 10 Mg Tablet 1 Tab PO QHS Reported Coreg (Carvedilol) 6.25 Mg Tablet 1.5 Tab PO BID Entresto 49 mg-51 mg Tablet (Sacubitril/Valsartan) 1 Each Tablet 1 Each PO BID Atorvastatin Calcium 40 Mg Tablet 40 Mg PO HS Miralax (Polyethylene Glycol 3350) 17 Gm Powd.pack 1 Packet PO PRN DAILY PRN Colace (Docusate Sodium) 100 Mg Capsule 1 Cap PO DAILY Furosemide 20 Mg Tablet 40 Mg PO DAILY Gabapentin 300 Mg Capsule 600 Mg PO PRN TID PRN Vitamin B-12 (Cyanocobalamin (Vitamin B-12)) 1,000 Mcg Tablet 500 Mcg PO DAILY Lantus Solostar (Insulin Glargine,Hum.rec.anlog) 100 Unit/1 Ml Insuln.pen 25 Unit SQ QHS Novolog (Insulin Aspart) 100 Unit/1 Ml Cartridge 3 Unit SQ TIDAC Aspirin 81 Mg Tab.chew 81 Mg PO DAILY Metformin Hcl 500 Mg Tablet 1,000 Mg PO BID Vitals/I & O Vital Sign - Last 24 Hours 06/05/17 06/05/17 06/05/17 06/05/17 17:57 18:00 20:13 21:00 Temp 101.5 103.0 103.2 101.5 103.0 103.2 Pulse 112 110 118 Resp 24 21 B/P (MAP) 123/69 (87) 123/69 (87) 122/70 (87) Pulse Ox 100 95 97 O2 Delivery Room Air Room Air Nasal Cannula O2 Flow Rate 2.0 06/05/17 06/05/17 06/05/17 06/05/17 21:10 21:10 22:00 23:00 Temp 103.2 103.2 Pulse 118 118 118 Resp 21 35 19 B/P (MAP) 120/70 (87) 67/48 (54) 68/44 (52) Pulse Ox 95 98 92 O2 Delivery Nasal Cannula Nasal Cannula Nasal Cannula Nasal Cannula O2 Flow Rate 2.0 2.0 2.0 2.0 06/05/17 06/05/17 06/05/17 06/06/17 23:15 23:59 23:59 01:00 Temp 98.4 98.4 Pulse 114 118 106 Resp 20 16 26 B/P (MAP) 110/62 (78) 97/60 (72) 85/68 (74) Pulse Ox 97 98 96 O2 Delivery Nasal Cannula Nasal Cannula Nasal Cannula Nasal Cannula O2 Flow Rate 2.0 2.0 2.0 2.0 06/06/17 06/06/17 06/06/17 06/06/17 01:30 02:00 03:00 04:00 Pulse 107 97 92 Resp 22 31 19 B/P (MAP) 66/55 (59) 110/61 (77) 109/58 (75) Pulse Ox 98 95 100 O2 Delivery Nasal Cannula Nasal Cannula Nasal Cannula Nasal Cannula O2 Flow Rate 2.0 2.0 2.0 2.0 06/06/17 06/06/17 06/06/17 06/06/17 04:00 05:00 06:00 07:00 Temp 98.3 98.3 Pulse 93 89 86 91 Resp 13 18 15 29 B/P (MAP) 124/65 (84) 115/64 (81) 112/61 (78) 126/73 (90) Pulse Ox 96 100 100 91 O2 Delivery Nasal Cannula Nasal Cannula Nasal Cannula Nasal Cannula O2 Flow Rate 2.0 2.0 2.0 2.0 06/06/17 08:07 O2 Delivery Nasal Cannula O2 Flow Rate 2.0 Intake and Output 06/05/17 06/05/17 06/06/17 15:00 23:00 07:00 Intake Total 200 ml 1823 ml Output Total 50 ml 0 ml Balance 150 ml 1823 ml BATOOL GRIGGS MD Jun 06, 2017 10:21
[2017-06-06] MEDS: guaiFENesin DM 200MG/20MG 10 ML SYRUP PO SCH ×4 (10:25→20:46)
[2017-06-06] MEDS: IV NORMAL SALINE 1000ML BAG 1,000 ML IV SCH (10:30)
[2017-06-06] MEDS: CEFEPIME HCL IV Push 2 GM VIAL. IVP SCH ×2 (10:30→20:47)
[2017-06-06 11:31] LABS: BILIRUBIN,URINE SMALL (NEG); GLUCOSE,URINE NEGATIVE (NEG); NITRITE,URINE NEGATIVE (NEG); PROTEIN,URINE 30 mg/dL (NEG-TRACE); UROBILINOGEN,URINE 0.2 mg/dL (0.2 mg/dL)
[2017-06-06 11:53] LABS: SQUAMOUS EPITHELIAL CELL,UR MOD /LPF
[2017-06-06 11:54] LABS: BACTERIA,URINE MODERATE /HPF (0-FEW); RBC,URINE 0 /HPF (0-2)
[2017-06-06 12:34] LABS: PLT ESTIMATE DECREASED (ADEQUATE)
[2017-06-06 12:35] LABS: ANISOCYTOSIS SLIGHT
[2017-06-06] MEDS: VANCOMYCIN PER PHARMACY MC PRN (15:14)
--- NOTE | 2017-06-06 17:32 | CARD ---
APPROVED REPORT EXAM: Two-dimensional and M-mode echocardiogram with Doppler and color Doppler. Other Information Quality : Average INDICATION Non STEMI 2D DIMENSIONS Left Atrium(2D)4.8 (1.6-4.0cm)IVSd1.4 (0.7-1.1cm) Aortic Root(2D)2.9 (2.0-3.7cm)LVDd4.7 (3.9-5.9cm) LVOT Diameter1.8 (1.8-2.4cm)PWd1.4 (0.7-1.1cm) LVDs4.3 (2.5-4.0cm)FS (%) 8.2 % SV18.3 mlLVEF(%)18.3 (>50%) Aortic Valve AoV Peak Manuel.137.9cm/sAoV VTI23.3cm AO Peak GR.7.6mmHgLVOT VTI 13.23cm AO Mean GR.4mmHgAVA (VTI)1.50cm2 Mitral Valve MV E Cnpubbby316.7cm/sMV E Peak Gr.5mmHg MV DECEL [id number] A Gadgrdod91.0cm/s MV E Mean Gr.1mmHgE/A Ratio1.1 TDI Lateral E' P. V8.88cm/sMedial E' P. V6.37cm/s E/Lateral E'11.5E/Medial E'16.0 Tricuspid Valve TR P. [id number]/sRAP [id number] TR Peak Gr.[id number] LEFT VENTRICLE The left ventricle is normal size. There is mild to moderate concentric left ventricular hypertrophy. Left ventricle systolic function is severely impaired. The Ejection Fraction is <20%. There is sever e global hypokinesis of the left ventricle with septal motion suggestive of conduction defect. Tissue Doppler imaging reveals moderate left ventricular diastolic dysfunction. RIGHT VENTRICLE The right ventricle is normal size. RV Systolic function is mildly reduced. ATRIA The left atrium is moderately dilated. The right atrium is mildly dilated. The interatrial septum is intact with no evidence for an atrial septal defect or patent foramen ovale as noted on 2-D or Dopple r imaging. AORTIC VALVE The aortic valve is mildly calcified. Doppler and Color Flow revealed trace aortic regurgitation. The re is mild valvular aortic stenosis. Calculated aortic valve area is 1.5 cm2 with maximum pressure gr adient of 8 mmHg and mean pressure gradient of 3.9 mmHg. MITRAL VALVE Mitral annular calcification is severe. There is no evidence of mitral valve prolapse. There is no mi tral valve stenosis. Doppler and Color Flow revealed no mitral valve regurgitation noted. TRICUSPID VALVE The tricuspid valve is normal in structure and function. Doppler and Color Flow revealed moderate tri cuspid regurgitation. There is moderate pulmonary hypertension. The PA pressure was estimated at 50 m mHg. There is no tricuspid valve prolapse or vegetation. There is no tricuspid valve stenosis. PULMONIC VALVE Doppler and Color Flow revealed mild pulmonic valvular regurgitation. There is no pulmonic valvular s tenosis. GREAT VESSELS The aortic root is normal in size. The ascending aorta is normal in size. The IVC is normal in size a nd collapses >50% with inspiration. PERICARDIAL EFFUSION There is no pleural effusion. There is no evidence of significant pericardial effusion. Critical Notification Critical Value: No <Conclusion> Left ventricle systolic function is severely impaired. The Ejection Fraction is <20%. There is severe global hypokinesis of the left ventricle with septal motion suggestive of conduction defect. Doppler and Color Flow revealed moderate tricuspid regurgitation. There is moderate pulmonary hyperte nsion. The PA pressure was estimated at 50 mmHg.
[2017-06-06 20:10] LABS: PTH INTACT 402 pg/mL (15-65)
[2017-06-06] MEDS: LACTOBACILLUS RHAMNOSUS GG 1 CAPSULE. PO SCH (20:46)
[2017-06-06] MEDS: HYDROcodone/APAP 5/325MG 1 TAB TABLET PO PRN (20:48)
[2017-06-06] MEDS: CAPSAICIN 0.025% TOPICAL CREAM 60GM TUBE. TP SCH (20:48)
[2017-06-06] MEDS ORDERED: VANCOMYCIN 1.25 GM in IV 1/2 NORMAL SALINE 250 ML IV SCH (22:00)
[2017-06-07] VITALS (16 sets, daily range): BP systolic 77–112; BP diastolic 42–86
[2017-06-07] MEDS: BENZONATATE 100 MG CAPSULE. PO SCH ×4 (03:49→20:50)
[2017-06-07] MEDS: HYDROcodone/APAP 5/325MG 1 TAB TABLET PO PRN (03:50)
[2017-06-07 07:14] LABS: HEMOGLOBIN 8.5 g/dL (12.0-15.5); RED BLOOD COUNT 3.24 x10^6/uL (3.50-5.40); RED CELL DISTRIBUTION WIDTH 18.4 % (11.5-14.5); WHITE BLOOD COUNT 14.6 x10^3/uL (4.0-11.0)
[2017-06-07 07:44] LABS: ALBUMIN 2.4 g/dL (3.4-5.0); CALCIUM 7.8 mg/dL (8.5-10.1); CREATININE 2.8 mg/dL (0.6-1.0); GFR 20.9; MAGNESIUM 1.7 mg/dL (1.8-2.4); POTASSIUM 4.3 mmol/L (3.5-5.1)
[2017-06-07] MEDS: LACTOBACILLUS RHAMNOSUS GG 1 CAPSULE. PO SCH ×2 (08:20→20:50)
[2017-06-07] MEDS: ASPIRIN ENTERIC COATED 81 MG TABLET.DR. PO SCH (08:20)
[2017-06-07] MEDS: guaiFENesin DM 200MG/20MG 10 ML SYRUP PO SCH ×4 (08:20→23:33)
[2017-06-07] MEDS: CAPSAICIN 0.025% TOPICAL CREAM 60GM TUBE. TP SCH ×3 (08:21→20:51)
[2017-06-07] MEDS ORDERED: MAGNESIUM SULFATE 2GM 50 ML IV ONE (09:00)
--- NOTE | 2017-06-07 09:07 | PDOC ---
Infectious Disease Note Subjective Subjective ROS ROS GEN: Denies fevers, chills, sweats HEENT: Denies blurred vision, sore throat CV: Denies chest pain RESP: Denies shortness of air, cough GI: Denies n/v/d NEURO: Denies confusion, dizziness MSK: Denies weakness,OTHER joint pain/swelling no back pain c/o rt shoulder pain but improving Vital Sign Vital Signs Vital Signs Date Time Temp Pulse Resp B/P (MAP) Pulse Ox O2 Delivery O2 Flow Rate FiO2 06/07/17 08:00 Nasal Cannula 2.0 06/07/17 08:00 98.1 87 18 78/53 (61) 93 98.1 Physical Exam PHYSICAL EXAM GENERAL: NAD, Alert ,awake HEENT: PERRL, OC/OP NECK: Supple, no JVD, no LN LUNGS: Clear HEART: S1S2, no gallop, no murmur ABD: Soft, NT, no organomegaly, no rebound EXT: No edema, no cyanosis [employer] BATTERY: Alert, oriented x 3, no focal neurologic deficit SKIN: No rash MSK: rt shoulder no effusion, no other jt effusion noted IV: ok Labs Lab Laboratory Tests Test 06/06/17 09:20 06/06/17 11:00 06/06/17 17:45 06/06/17 21:05 White Blood Count 17.0 x10^3/uL (4.0-11.0) Red Blood Count 3.36 x10^6/uL (3.50-5.40) Hemoglobin 8.8 g/dL (12.0-15.5) Hematocrit 27.8 % (36.0-47.0) Mean Corpuscular Volume 83 fL (79-100) Mean Corpuscular Hemoglobin 26 pg (25-35) Mean Corpuscular Hemoglobin Concent 32 g/dL (31-37) Red Cell Distribution Width 17.8 % (11.5-14.5) Platelet Count 104 x10^3/uL (140-400) Neutrophils (%) (Auto) 87 % (31-73) Lymphocytes (%) (Auto) 5 % (24-48) Monocytes (%) (Auto) 8 % (0-9) Eosinophils (%) (Auto) 0 % (0-3) Basophils (%) (Auto) 0 % (0-3) Neutrophils # (Auto) 14.7 x10^3uL (1.8-7.7) Lymphocytes # (Auto) 0.8 x10^3/uL (1.0-4.8) Monocytes # (Auto) 1.4 x10^3/uL (0.0-1.1) Eosinophils # (Auto) 0.0 x10^3/uL (0.0-0.7) Basophils # (Auto) 0.0 x10^3/uL (0.0-0.2) Segmented Neutrophils % 44 % (35-66) Band Neutrophils % 47 % (0-9) Lymphocytes % 2 % (24-48) Monocytes % 5 % (0-10) Metamyelocytes % 2 % (0-0) Platelet Estimate Decreased (ADEQUATE) Large Platelets Present Anisocytosis Slight Reticulocyte Count (auto) 0.9 % (0.5-2.5) Sodium Level 141 mmol/L (136-145) Potassium Level 4.0 mmol/L (3.5-5.1) Chloride Level 103 mmol/L (98-107) Carbon Dioxide Level 25 mmol/L (21-32) Anion Gap 13 (6-14) Blood Urea Nitrogen 49 mg/dL (7-20) Creatinine 2.8 mg/dL (0.6-1.0) Estimated GFR (Non- 20 (>59) Estimated GFR (Cockcroft-Gault) 20.9 BUN/Creatinine Ratio 18 (6-20) Glucose Level 177 mg/dL (70-99) Calcium Level 8.4 mg/dL (8.5-10.1) Magnesium Level 1.3 mg/dL (1.8-2.4) Iron Level 12 ug/dL (50-170) Total Iron Binding Capacity 187 ug/dL (250-450) Iron Saturation 6 % (15-34) Ferritin 1682 ng/mL (8-252) Total Bilirubin 0.8 mg/dL (0.2-1.0) Aspartate Amino Transf (AST/SGOT) 151 U/L (15-37) Alanine Aminotransferase (ALT/SGPT) 71 U/L (14-59) Alkaline Phosphatase 242 U/L (46-116) Total Protein 8.6 g/dL (6.4-8.2) Albumin 2.8 g/dL (3.4-5.0) Albumin/Globulin Ratio 0.5 (1.0-1.7) EGFR 22 (>59) PTH (Intact) Specimen Description Comment (.) Parathyroid Hormone (Intact) 402 pg/mL (15-65) Calcium (PTH Intact) 8.4 mg/dL (8.7-10.3) Creatinine (PTH Intact) 2.58 mg/dL (0.57-1.00) Phosphorus (PTH Intact) 4.7 mg/dL (2.5-4.5) Urine Collection Type U cath Urine Color Irene Urine Clarity Clear Urine pH 5.0 Urine Specific [place] 1.020 Urine Protein 30 mg/dL (NEG-TRACE) Urine Glucose (UA) Negative mg/dL (NEG) Urine Ketones (Stick) Trace mg/dL (NEG) Urine Blood Negative (NEG) Urine Nitrite Negative (NEG) Urine Bilirubin Small (NEG) Urine Urobilinogen Dipstick 0.2 mg/dL (0.2 mg/dL) Urine Leukocyte Esterase Moderate (NEG) Urine RBC 0 /HPF (0-2) Urine WBC 11-20 /HPF (0-4) Urine Squamous Epithelial Cells Mod /LPF Urine Bacteria Moderate /HPF (0-FEW) Urine Mucus Slight /LPF Heparin Anti-Xa Act, Unfractionated 0.57 IU/mL (0.30-0.70) Troponin I Quantitative 20.486 ng/mL (0.000-0.055) Glucose (Fingerstick) 131 mg/dL (70-99) Test 06/07/17 00:35 06/07/17 07:00 Heparin Anti-Xa Act, Unfractionated 0.54 IU/mL (0.30-0.70) 0.49 IU/mL (0.30-0.70) White Blood Count 14.6 x10^3/uL (4.0-11.0) Red Blood Count 3.24 x10^6/uL (3.50-5.40) Hemoglobin 8.5 g/dL (12.0-15.5) Hematocrit 27.0 % (36.0-47.0) Mean Corpuscular Volume 83 fL (79-100) Mean Corpuscular Hemoglobin 26 pg (25-35) Mean Corpuscular Hemoglobin Concent 31 g/dL (31-37) Red Cell Distribution Width 18.4 % (11.5-14.5) Platelet Count 85 x10^3/uL (140-400) Sodium Level 137 mmol/L (136-145) Potassium Level 4.3 mmol/L (3.5-5.1) Chloride Level 101 mmol/L (98-107) Carbon Dioxide Level 23 mmol/L (21-32) Anion Gap 13 (6-14) Blood Urea Nitrogen 50 mg/dL (7-20) Creatinine 2.8 mg/dL (0.6-1.0) Estimated GFR (Cockcroft-Gault) 20.9 Glucose Level 147 mg/dL (70-99) Lactic Acid Level 1.8 mmol/L (0.4-2.0) Calcium Level 7.8 mg/dL (8.5-10.1) Phosphorus Level 4.0 mg/dL (2.6-4.7) Magnesium Level 1.7 mg/dL (1.8-2.4) Albumin 2.4 g/dL (3.4-5.0) Micro BC GPC called MICRO today, ID still pending Objective Assessment IMP: Sepsis,lactic acidosis rfrom NSTEMI with bacteremia Bacteremia GPC in chains ,per micro likely strep pneumoniae ASHLEY PNA strep pneumonia Nausea and vomiting resolved Anemia,chronic,b12 def Chestpain NSTEMI Rt Shoulder pain improving Plan Plan of Care REC; DC IV Vanc bc likely strep pneumonia, final report pending but pt has worsening of her ASHLEY On heparin drip continue empiric cefepime, will narrow soon moniitor creat closely repeat bc f/u c/s and labs cont supportive care obtain x ray of rt shoulder XANDER LOMBARDI MD Jun 07, 2017 09:07
--- NOTE | 2017-06-07 09:31 | RAD ---
History: CHF AP view the chest was obtained at 921 hours. Comparison: January 03, 2017 The heart is mildly enlarged the pulmonary vessels appear normal. Left-sided defibrillator is again seen. . The lungs and pleural margins are clear. Impression: Mild cardiomegaly. Stable appearance of the chest.
[2017-06-07] MEDS: CEFEPIME HCL IV Push 2 GM VIAL. IVP SCH ×2 (10:00→20:50)
[2017-06-07] MEDS: DOCUSATE SODIUM 100 MG CAPSULE. PO SCH (10:00)
--- NOTE | 2017-06-07 10:40 | PDOC ---
PROGRESS NOTES Chief Complaint Chief Complaint Severe cardiomyopathy with EF 20%, severe global hypokinesis Possible sepsis, septic shock requiring pressors Cough, fevers, tachycardia, AK I on CK D, elevated lactate, elevated BNP, anemia of chronic disease, Overweight BMI 29.5 M positive bacteremia Diabetes type 2 Pacemaker/AICD in situ N STEMI, dyslipidemia Right shoulder pain, musculoskeletal History of Present Illness History of Present Illness Auld overnight because of right shoulder pain, that seems musculoskeletal in nature. Also some right-sided neck pain. I did start some capsaicin cream 3 times a day and Lortab. She feels much better in that regard Off pressor about 30 units ago, map 80 Looks a little bit better, feels a little bit better,. But then again she gets shortness of breath easy because her EF is less than 20%. Troponin slightly elevated cardiology following Being treated for pneumonia, ID on the case. Also has some chronic kidney disease renal on the case PLAN: okay to transfer out of ICU to [facility] if okay with other consults. Currently on heparin drip for the NSTEMI Continue capsaicin cream and Lortab and other supportive meds PT OT when blood pressure remained stable Supportive care Need LHC? We'll defer to cardiology Overall prognosis is poor because of very low EF, frequency of readmission is high full code Vitals Vitals Vital Signs Date Time Temp Pulse Resp B/P (MAP) Pulse Ox O2 Delivery O2 Flow Rate FiO2 06/07/17 10:00 85 12 108/59 (75) 99 Nasal Cannula 2.0 06/07/17 08:00 98.1 98.1 Physical Exam General: Alert, Oriented X3, Cooperative, No acute distress Heart: Regular rate (Paced), Other (3/6/systolic murmur to LLS border) Lungs: Clear, Other Abdomen: Soft Extremities: No cyanosis, No edema Skin: No breakdown, No significant lesion Labs LABS Laboratory Tests Test 06/06/17 11:00 06/06/17 17:45 06/06/17 21:05 06/07/17 00:35 Urine Collection Type U cath Urine Color Irene Urine Clarity Clear Urine pH 5.0 Urine Specific [place] 1.020 Urine Protein 30 mg/dL (NEG-TRACE) Urine Glucose (UA) Negative mg/dL (NEG) Urine Ketones (Stick) Trace mg/dL (NEG) Urine Blood Negative (NEG) Urine Nitrite Negative (NEG) Urine Bilirubin Small (NEG) Urine Urobilinogen Dipstick 0.2 mg/dL (0.2 mg/dL) Urine Leukocyte Esterase Moderate (NEG) Urine RBC 0 /HPF (0-2) Urine WBC 11-20 /HPF (0-4) Urine Squamous Epithelial Cells Mod /LPF Urine Bacteria Moderate /HPF (0-FEW) Urine Mucus Slight /LPF Heparin Anti-Xa Act, Unfractionated 0.57 IU/mL (0.30-0.70) 0.54 IU/mL (0.30-0.70) Troponin I Quantitative 20.486 ng/mL (0.000-0.055) Glucose (Fingerstick) 131 mg/dL (70-99) Test 06/07/17 07:00 White Blood Count 14.6 x10^3/uL (4.0-11.0) Red Blood Count 3.24 x10^6/uL (3.50-5.40) Hemoglobin 8.5 g/dL (12.0-15.5) Hematocrit 27.0 % (36.0-47.0) Mean Corpuscular Volume 83 fL (79-100) Mean Corpuscular Hemoglobin 26 pg (25-35) Mean Corpuscular Hemoglobin Concent 31 g/dL (31-37) Red Cell Distribution Width 18.4 % (11.5-14.5) Platelet Count 85 x10^3/uL (140-400) Heparin Anti-Xa Act, Unfractionated 0.49 IU/mL (0.30-0.70) Sodium Level 137 mmol/L (136-145) Potassium Level 4.3 mmol/L (3.5-5.1) Chloride Level 101 mmol/L (98-107) Carbon Dioxide Level 23 mmol/L (21-32) Anion Gap 13 (6-14) Blood Urea Nitrogen 50 mg/dL (7-20) Creatinine 2.8 mg/dL (0.6-1.0) Estimated GFR (Cockcroft-Gault) 20.9 Glucose Level 147 mg/dL (70-99) Lactic Acid Level 1.8 mmol/L (0.4-2.0) Calcium Level 7.8 mg/dL (8.5-10.1) Phosphorus Level 4.0 mg/dL (2.6-4.7) Magnesium Level 1.7 mg/dL (1.8-2.4) Albumin 2.4 g/dL (3.4-5.0) Review of Systems Review of Systems No increasing shortness of breath, no chest pain, right shoulder pain, right neck pain The rest of the review of systems 14 point reviewed with her otherwise negative Assessment and Plan Assessmemt and Plan Problems Medical Problems: (1) Congestive heart disease Status: Acute (2) Elevated troponin Status: Acute (3) Pneumonia Status: Acute (4) Sepsis Status: Acute Problems: Comment Review of Relevant I have reviewed the following items bro (where applicable) has been applied. Labs Laboratory Tests Test 06/05/17 18:05 06/05/17 18:25 06/05/17 21:00 06/05/17 22:00 Influenza Type A Antigen Negative (NEGATIVE) Influenza Type B Antigen Negative (NEGATIVE) White Blood Count 6.5 x10^3/uL (4.0-11.0) Red Blood Count 3.37 x10^6/uL (3.50-5.40) Hemoglobin 8.8 g/dL (12.0-15.5) Hematocrit 27.8 % (36.0-47.0) Mean Corpuscular Volume 83 fL (79-100) Mean Corpuscular Hemoglobin 26 pg (25-35) Mean Corpuscular Hemoglobin Concent 32 g/dL (31-37) Red Cell Distribution Width 18.0 % (11.5-14.5) Platelet Count 127 x10^3/uL (140-400) Neutrophils (%) (Auto) 66 % (31-73) Lymphocytes (%) (Auto) 23 % (24-48) Monocytes (%) (Auto) 10 % (0-9) Eosinophils (%) (Auto) 1 % (0-3) Basophils (%) (Auto) 0 % (0-3) Neutrophils # (Auto) 4.3 x10^3uL (1.8-7.7) Lymphocytes # (Auto) 1.5 x10^3/uL (1.0-4.8) Monocytes # (Auto) 0.7 x10^3/uL (0.0-1.1) Eosinophils # (Auto) 0.0 x10^3/uL (0.0-0.7) Basophils # (Auto) 0.0 x10^3/uL (0.0-0.2) Sodium Level 140 mmol/L (136-145) Potassium Level 4.3 mmol/L (3.5-5.1) Chloride Level 101 mmol/L (98-107) Carbon Dioxide Level 26 mmol/L (21-32) Anion Gap 13 (6-14) Blood Urea Nitrogen 44 mg/dL (7-20) Creatinine 2.3 mg/dL (0.6-1.0) Estimated GFR (Cockcroft-Gault) 26.2 BUN/Creatinine Ratio 19 (6-20) Glucose Level 192 mg/dL (70-99) Lactic Acid Level 4.9 mmol/L (0.4-2.0) 2.9 mmol/L (0.4-2.0) Calcium Level 8.4 mg/dL (8.5-10.1) Total Bilirubin 0.5 mg/dL (0.2-1.0) Aspartate Amino Transf (AST/SGOT) 115 U/L (15-37) Alanine Aminotransferase (ALT/SGPT) 75 U/L (14-59) Alkaline Phosphatase 277 U/L (46-116) Troponin I Quantitative 0.806 ng/mL (0.000-0.055) DX-Akg-O-Type Natriuretic Peptide 34789 pg/mL (0-124) Total Protein 9.1 g/dL (6.4-8.2) Albumin 3.0 g/dL (3.4-5.0) Albumin/Globulin Ratio 0.5 (1.0-1.7) Lipase 84 U/L (73-393) Nasal Screen MRSA (PCR) Negative (Negative) Test 06/06/17 00:34 06/06/17 08:05 06/06/17 09:20 06/06/17 11:00 Glucose (Fingerstick) 172 mg/dL (70-99) Troponin I Quantitative 22.156 ng/mL (0.000-0.055) White Blood Count 17.0 x10^3/uL (4.0-11.0) Red Blood Count 3.36 x10^6/uL (3.50-5.40) Hemoglobin 8.8 g/dL (12.0-15.5) Hematocrit 27.8 % (36.0-47.0) Mean Corpuscular Volume 83 fL (79-100) Mean Corpuscular Hemoglobin 26 pg (25-35) Mean Corpuscular Hemoglobin Concent 32 g/dL (31-37) Red Cell Distribution Width 17.8 % (11.5-14.5) Platelet Count 104 x10^3/uL (140-400) Neutrophils (%) (Auto) 87 % (31-73) Lymphocytes (%) (Auto) 5 % (24-48) Monocytes (%) (Auto) 8 % (0-9) Eosinophils (%) (Auto) 0 % (0-3) Basophils (%) (Auto) 0 % (0-3) Neutrophils # (Auto) 14.7 x10^3uL (1.8-7.7) Lymphocytes # (Auto) 0.8 x10^3/uL (1.0-4.8) Monocytes # (Auto) 1.4 x10^3/uL (0.0-1.1) Eosinophils # (Auto) 0.0 x10^3/uL (0.0-0.7) Basophils # (Auto) 0.0 x10^3/uL (0.0-0.2) Segmented Neutrophils % 44 % (35-66) Band Neutrophils % 47 % (0-9) Lymphocytes % 2 % (24-48) Monocytes % 5 % (0-10) Metamyelocytes % 2 % (0-0) Platelet Estimate Decreased (ADEQUATE) Large Platelets Present Anisocytosis Slight Reticulocyte Count (auto) 0.9 % (0.5-2.5) Sodium Level 141 mmol/L (136-145) Potassium Level 4.0 mmol/L (3.5-5.1) Chloride Level 103 mmol/L (98-107) Carbon Dioxide Level 25 mmol/L (21-32) Anion Gap 13 (6-14) Blood Urea Nitrogen 49 mg/dL (7-20) Creatinine 2.8 mg/dL (0.6-1.0) Estimated GFR (Non- 20 (>59) Estimated GFR (Cockcroft-Gault) 20.9 BUN/Creatinine Ratio 18 (6-20) Glucose Level 177 mg/dL (70-99) Calcium Level 8.4 mg/dL (8.5-10.1) Magnesium Level 1.3 mg/dL (1.8-2.4) Iron Level 12 ug/dL (50-170) Total Iron Binding Capacity 187 ug/dL (250-450) Iron Saturation 6 % (15-34) Ferritin 1682 ng/mL (8-252) Total Bilirubin 0.8 mg/dL (0.2-1.0) Aspartate Amino Transf (AST/SGOT) 151 U/L (15-37) Alanine Aminotransferase (ALT/SGPT) 71 U/L (14-59) Alkaline Phosphatase 242 U/L (46-116) Total Protein 8.6 g/dL (6.4-8.2) Albumin 2.8 g/dL (3.4-5.0) Albumin/Globulin Ratio 0.5 (1.0-1.7) EGFR 22 (>59) PTH (Intact) Specimen Description Comment (.) Parathyroid Hormone (Intact) 402 pg/mL (15-65) Calcium (PTH Intact) 8.4 mg/dL (8.7-10.3) Creatinine (PTH Intact) 2.58 mg/dL (0.57-1.00) Phosphorus (PTH Intact) 4.7 mg/dL (2.5-4.5) Urine Collection Type U cath Urine Color Irene Urine Clarity Clear Urine pH 5.0 Urine Specific [place] 1.020 Urine Protein 30 mg/dL (NEG-TRACE) Urine Glucose (UA) Negative mg/dL (NEG) Urine Ketones (Stick) Trace mg/dL (NEG) Urine Blood Negative (NEG) Urine Nitrite Negative (NEG) Urine Bilirubin Small (NEG) Urine Urobilinogen Dipstick 0.2 mg/dL (0.2 mg/dL) Urine Leukocyte Esterase Moderate (NEG) Urine RBC 0 /HPF (0-2) Urine WBC 11-20 /HPF (0-4) Urine Squamous Epithelial Cells Mod /LPF Urine Bacteria Moderate /HPF (0-FEW) Urine Mucus Slight /LPF Test 06/06/17 17:45 06/06/17 21:05 06/07/17 00:35 06/07/17 07:00 Heparin Anti-Xa Act, Unfractionated 0.57 IU/mL (0.30-0.70) 0.54 IU/mL (0.30-0.70) 0.49 IU/mL (0.30-0.70) Troponin I Quantitative 20.486 ng/mL (0.000-0.055) Glucose (Fingerstick) 131 mg/dL (70-99) White Blood Count 14.6 x10^3/uL (4.0-11.0) Red Blood Count 3.24 x10^6/uL (3.50-5.40) Hemoglobin 8.5 g/dL (12.0-15.5) Hematocrit 27.0 % (36.0-47.0) Mean Corpuscular Volume 83 fL (79-100) Mean Corpuscular Hemoglobin 26 pg (25-35) Mean Corpuscular Hemoglobin Concent 31 g/dL (31-37) Red Cell Distribution Width 18.4 % (11.5-14.5) Platelet Count 85 x10^3/uL (140-400) Sodium Level 137 mmol/L (136-145) Potassium Level 4.3 mmol/L (3.5-5.1) Chloride Level 101 mmol/L (98-107) Carbon Dioxide Level 23 mmol/L (21-32) Anion Gap 13 (6-14) Blood Urea Nitrogen 50 mg/dL (7-20) Creatinine 2.8 mg/dL (0.6-1.0) Estimated GFR (Cockcroft-Gault) 20.9 Glucose Level 147 mg/dL (70-99) Lactic Acid Level 1.8 mmol/L (0.4-2.0) Calcium Level 7.8 mg/dL (8.5-10.1) Phosphorus Level 4.0 mg/dL (2.6-4.7) Magnesium Level 1.7 mg/dL (1.8-2.4) Albumin 2.4 g/dL (3.4-5.0) Laboratory Tests Test 06/06/17 11:00 06/06/17 17:45 06/06/17 21:05 06/07/17 00:35 Urine Collection Type U cath Urine Color Irene Urine Clarity Clear Urine pH 5.0 Urine Specific [place] 1.020 Urine Protein 30 mg/dL (NEG-TRACE) Urine Glucose (UA) Negative mg/dL (NEG) Urine Ketones (Stick) Trace mg/dL (NEG) Urine Blood Negative (NEG) Urine Nitrite Negative (NEG) Urine Bilirubin Small (NEG) Urine Urobilinogen Dipstick 0.2 mg/dL (0.2 mg/dL) Urine Leukocyte Esterase Moderate (NEG) Urine RBC 0 /HPF (0-2) Urine WBC 11-20 /HPF (0-4) Urine Squamous Epithelial Cells Mod /LPF Urine Bacteria Moderate /HPF (0-FEW) Urine Mucus Slight /LPF Heparin Anti-Xa Act, Unfractionated 0.57 IU/mL (0.30-0.70) 0.54 IU/mL (0.30-0.70) Troponin I Quantitative 20.486 ng/mL (0.000-0.055) Glucose (Fingerstick) 131 mg/dL (70-99) Test 06/07/17 07:00 White Blood Count 14.6 x10^3/uL (4.0-11.0) Red Blood Count 3.24 x10^6/uL (3.50-5.40) Hemoglobin 8.5 g/dL (12.0-15.5) Hematocrit 27.0 % (36.0-47.0) Mean Corpuscular Volume 83 fL (79-100) Mean Corpuscular Hemoglobin 26 pg (25-35) Mean Corpuscular Hemoglobin Concent 31 g/dL (31-37) Red Cell Distribution Width 18.4 % (11.5-14.5) Platelet Count 85 x10^3/uL (140-400) Heparin Anti-Xa Act, Unfractionated 0.49 IU/mL (0.30-0.70) Sodium Level 137 mmol/L (136-145) Potassium Level 4.3 mmol/L (3.5-5.1) Chloride Level 101 mmol/L (98-107) Carbon Dioxide Level 23 mmol/L (21-32) Anion Gap 13 (6-14) Blood Urea Nitrogen 50 mg/dL (7-20) Creatinine 2.8 mg/dL (0.6-1.0) Estimated GFR (Cockcroft-Gault) 20.9 Glucose Level 147 mg/dL (70-99) Lactic Acid Level 1.8 mmol/L (0.4-2.0) Calcium Level 7.8 mg/dL (8.5-10.1) Phosphorus Level 4.0 mg/dL (2.6-4.7) Magnesium Level 1.7 mg/dL (1.8-2.4) Albumin 2.4 g/dL (3.4-5.0) Microbiology 12/19/17 Blood Culture - Preliminary, Resulted NO GROWTH AFTER 1 DAY Medications Current Medications Ondansetron HCl (Zofran) 8 mg 1X ONCE IV Last administered on 06/05/17 18:36 ; Start 06/05/17 at 18:30; Stop 06/05/17 at 18:31; Status DC Aspirin (Children'S Aspirin) 324 mg 1X ONCE PO Last administered on 19:48; Start 06/05/17 at 19:45; Stop 06/05/17 at 19:46; Status DC Sodium Chloride 1,000 ml @ 1,000 mls/hr 1X ONCE IV Last administered on 06/05 20:12; Start 06/05/17 at 20:00; Stop 06/05/17 at 20:59; Status DC Cefepime HCl 2 gm/ Dextrose 100 ml @ 200 mls/hr 1X ONCE IV ; Start 06/05/17 at 20:00; Stop 06/05/17 at 20:04; Status DC Cefepime HCl (Maxipime) 2 gm Q12HR IVP Last administered on 06/07/17 10:00; Start 06/05/17 at 21:00 Ondansetron HCl (Zofran) 4 mg PRN Q8HRS PRN IV NAUSEA/VOMITING; Start at 20:15; Stop 06/06/17 at 08:52; Status DC Sodium Chloride 1,000 ml @ 75 mls/hr [id number] IV Last administered on 10:30; Start 06/05/17 at 20:06; Stop 06/06/17 at 20:05; Status DC Albuterol/ Ipratropium (Duoneb) 3 ml RTQID NEB ; Start 06/06/17 at 08:00; Stop 06/07/17 at 07:59; Status DC Acetaminophen (Tylenol) 650 mg PRN Q6HRS PRN PO fever Last administered on 16:33; Start 06/05/17 at 20:15 Vancomycin HCl (Vanco Per Pharmacy) 1 each PRN DAILY PRN MC SEE COMMENTS Last administered on 06/06/17 15:14; Start 06/05/17 at 20:15; Stop 06/07/17 at 09 :14; Status DC Acetaminophen (Tylenol) 1,000 mg 1X ONCE PO Last administered on 06/05/17 20 :17; Start 06/05/17 at 20:15; Stop 06/05/17 at 20:21; Status DC Vancomycin HCl 2 gm/Dextrose/ Sodium Chloride 500 ml @ 250 mls/hr 1X ONCE IV Last administered on 06/05/17 21:45; Start 06/05/17 at 21:00; Stop 06/05/17 at 22:59; Status DC Vancomycin HCl 1.25 gm/Sodium Chloride 250 ml @ 167 mls/hr Q24H IV ; Start at 22:00; Stop 06/06/17 at 22:00; Status DC Vancomycin HCl 1 each 1X ONCE MC ; Start 06/07/17 at 20:00; Stop 06/07/17 at 20:00; Status DC Norepinephrine Bitartrate 250 ml @ 0 mls/hr CONT PRN IV SEE I/O RECORD Last administered on 06/05/17 23:13; Start 06/05/17 at 22:45 Magnesium Sulfate/ Dextrose 50 ml @ 25 mls/hr PRN DAILY PRN IV for Mag < 1.7 on am labs Last administered on 06/06/17 12:40; Start 06/06/17 at 08:30 Ondansetron HCl (Zofran) 4 mg PRN Q6HRS PRN IV NAUSEA/VOMITING; Start at 09:00; Stop 06/07/17 at 08:59; Status DC Guaifenesin (Robitussin Dm) 10 ml QID PO Last administered on 06/07/17 08:20 ; Start 06/06/17 at 09:00 Heparin Sodium (Porcine) (Heparin Sodium) 4,000 unit 1X ONCE IV Last administered on 06/06/17 10:19; Start 06/06/17 at 09:15; Stop 06/06/17 at 09 :21; Status DC Heparin Sodium/ Dextrose 500 ml @ 0 mls/hr CONT PRN IV SEE I/O RECORD Last administered on 06/06/17 10:20; Start 06/06/17 at 09:15 Heparin Sodium (Porcine) (Heparin Sodium) 2,000 unit PRN Q6HRS PRN IV FOR UFH LEVEL LESS THAN 0.2; Start 06/06/17 at 09:15 Furosemide (Lasix) 40 mg 1X ONCE IVP Last administered on 06/06/17 10:09; Start 06/06/17 at 10:00; Stop 06/06/17 at 10:01; Status DC Aspirin (Ecotrin) 81 mg [id number] PO Last administered on 06/07/17 08:20; Start 06/07/17 at 08:00 Lactobacillus Rhamnosus (Culturelle) 1 cap BID PO Last administered on 08:20; Start 06/06/17 at 21:00 Acetaminophen/ Hydrocodone Bitart (Lortab 5/325) 1 tab PRN Q6HRS PRN PO PAIN Last administered on 06/07/17 03:50; Start 06/06/17 at 20:30 Capsaicin (Zostrix) 1 nelson TID TP Last administered on 06/07/17 08:21; Start 06/06/17 at 21:00 Benzonatate (Tessalon Perle) 100 mg TID PO Last administered on 06/07/17 08: 21; Start 06/07/17 at 04:00 Magnesium Sulfate/ Dextrose 50 ml @ 25 mls/hr 1X ONCE IV Last administered on 06/07/17 08:55; Start 06/07/17 at 09:00; Stop 06/07/17 at 10:59 Docusate Sodium (Colace) 100 mg DAILY PO Last administered on 06/07/17 10:00 ; Start 06/07/17 at 10:30 Active Scripts Active Cyclobenzaprine Hcl 10 Mg Tablet 1 Tab PO QHS Reported Coreg (Carvedilol) 6.25 Mg Tablet 1.5 Tab PO BID Entresto 49 mg-51 mg Tablet (Sacubitril/Valsartan) 1 Each Tablet 1 Each PO BID Atorvastatin Calcium 40 Mg Tablet 40 Mg PO HS Miralax (Polyethylene Glycol 3350) 17 Gm Powd.pack 1 Packet PO PRN DAILY PRN Colace (Docusate Sodium) 100 Mg Capsule 1 Cap PO DAILY Furosemide 20 Mg Tablet 40 Mg PO DAILY Gabapentin 300 Mg Capsule 600 Mg PO PRN TID PRN Vitamin B-12 (Cyanocobalamin (Vitamin B-12)) 1,000 Mcg Tablet 500 Mcg PO DAILY Lantus Solostar (Insulin Glargine,Hum.rec.anlog) 100 Unit/1 Ml Insuln.pen 25 Unit SQ QHS Novolog (Insulin Aspart) 100 Unit/1 Ml Cartridge 3 Unit SQ TIDAC Aspirin 81 Mg Tab.chew 81 Mg PO DAILY Metformin Hcl 500 Mg Tablet 1,000 Mg PO BID Vitals/I & O Vital Sign - Last 24 Hours 06/06/17 06/06/17 06/06/17 06/06/17 11:00 12:00 12:00 13:00 Temp 98.6 98.6 Pulse 85 84 89 Resp 22 20 20 B/P (MAP) 95/58 (70) 115/61 (79) 104/65 (78) Pulse Ox 98 98 98 O2 Delivery Nasal Cannula Nasal Cannula Nasal Cannula Nasal Cannula O2 Flow Rate 2.0 2.0 2.0 2.0 06/06/17 06/06/17 06/06/17 06/06/17 14:00 15:00 16:00 16:00 Temp 98.0 98.0 Pulse 82 82 84 Resp 20 20 20 B/P (MAP) 104/65 (78) 87/55 (66) 95/55 (68) Pulse Ox 98 98 98 O2 Delivery Nasal Cannula Nasal Cannula Nasal Cannula Nasal Cannula O2 Flow Rate 2.0 2.0 2.0 2.0 06/06/17 06/06/17 06/06/17 06/06/17 17:00 18:00 19:00 20:00 Temp 97.6 97.6 Pulse 88 82 78 82 Resp 20 20 15 15 B/P (MAP) 85/48 (60) 90/59 (69) 90/58 (69) 109/66 (80) Pulse Ox 98 98 98 98 O2 Delivery Nasal Cannula Nasal Cannula Nasal Cannula Nasal Cannula O2 Flow Rate 2.0 2.0 2.0 2.0 06/06/17 06/06/17 06/06/17 06/06/17 20:00 20:48 21:00 22:00 Pulse 83 79 Resp 21 13 13 B/P (MAP) 97/71 (80) 97/63 (74) Pulse Ox 100 100 100 O2 Delivery Nasal Cannula Nasal Cannula Nasal Cannula Nasal Cannula O2 Flow Rate 2.0 2.0 2.0 2.0 06/06/17 06/07/17 06/07/17 06/07/17 23:00 00:00 00:00 01:00 Temp 97.5 97.5 Pulse 80 90 82 Resp 15 12 17 B/P (MAP) 87/63 (71) 103/59 (74) 86/53 (64) Pulse Ox 98 O2 Delivery Nasal Cannula Nasal Cannula Nasal Cannula Nasal Cannula O2 Flow Rate 2.0 2.0 2.0 2.0 06/07/17 06/07/17 06/07/17 06/07/17 02:00 03:00 03:50 04:00 Pulse 80 88 Resp 16 26 24 B/P (MAP) 84/49 (61) 108/65 (79) Pulse Ox 100 99 9 O2 Delivery Nasal Cannula Nasal Cannula Nasal Cannula Nasal Cannula O2 Flow Rate 2.0 2.0 2.0 2.0 06/07/17 06/07/17 06/07/17 06/07/17 04:00 04:50 05:00 06:00 Temp 96.6 96.6 Pulse 84 82 88 Resp 17 17 15 32 B/P (MAP) 102/62 (75) 112/64 (80) 85/69 (74) Pulse Ox 99 99 99 98 O2 Delivery Nasal Cannula Nasal Cannula Nasal Cannula Nasal Cannula O2 Flow Rate 2.0 2.0 2.0 2.0 06/07/17 06/07/17 06/07/17 06/07/17 07:00 08:00 08:00 09:00 Temp 98.1 98.1 Pulse 89 87 91 Resp 15 18 26 B/P (MAP) 98/56 (70) 78/53 (61) 101/86 (91) Pulse Ox 96 93 94 O2 Delivery Nasal Cannula Nasal Cannula Nasal Cannula Room Air O2 Flow Rate 2.0 2.0 2.0 06/07/17 10:00 Pulse 85 Resp 12 B/P (MAP) 108/59 (75) Pulse Ox 99 O2 Delivery Nasal Cannula O2 Flow Rate 2.0 Intake and Output 06/06/17 06/06/17 06/07/17 15:00 23:00 07:00 Intake Total 770 ml 1453 ml 1250 ml Output Total 500 ml 105 ml 300 ml Balance 270 ml 1348 ml 950 ml Nutrition Consultation Dietary Evaluation: Recommendations by RD: Increase Calorie Intake Comments: Avoid prolonged NPO/CLD status REC diet advancement to Cardiac/ADA within 24 - 48 hrs Expected Outcomes/Goals: Diet advancement within 24 - 48 hrs Interpretation of weight loss: >5% in 1 month Malnutrition Findings: Food and Nutrition Intake (Mod: <75% est energy req 7days Weight Status: Overweight BATOOL GRIGGS MD Jun 07, 2017 10:40
[2017-06-07] MEDS: HEPARIN 25,000UTS/500ML PREMIX 500 ML IV PRN (11:16)
[2017-06-07] MEDS: METOPROLOL TART IMMED RELEASE 25 MG TABLET. PO SCH ×2 (12:50→20:44)
--- NOTE | 2017-06-07 12:50 | PDOC ---
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 06/07/17 1250: CARDIO Progress Notes Date and Time Date of Service 06/07/2017 Time of Evaluation 1215 Subjective Subjective: No shortness of breath, No Palpitations, Other (noted with intermittent CP but mainly with coughing; no further nausea) Vitals Vitals Vital Signs Date Time Temp Pulse Resp B/P (MAP) Pulse Ox O2 Delivery O2 Flow Rate FiO2 06/07/17 12:00 97.6 75 18 96/59 (71) 96 Nasal Cannula 2.0 97.6 Weight Weight [ ] Input and Output Intake and Output Intake and Output 06/07/17 07:00 Intake Total 3473 ml Output Total 905 ml Balance 2568 ml Intake Oral 1280 ml IV Total 2193 ml Output Urine Total 905 ml # Bowel Movements 1 Laboratory Labs Laboratory Tests Test 06/06/17 17:45 06/06/17 21:05 06/07/17 00:35 06/07/17 07:00 Heparin Anti-Xa Act, Unfractionated 0.57 IU/mL (0.30-0.70) 0.54 IU/mL (0.30-0.70) 0.49 IU/mL (0.30-0.70) Troponin I Quantitative 20.486 ng/mL (0.000-0.055) Glucose (Fingerstick) 131 mg/dL (70-99) White Blood Count 14.6 x10^3/uL (4.0-11.0) Red Blood Count 3.24 x10^6/uL (3.50-5.40) Hemoglobin 8.5 g/dL (12.0-15.5) Hematocrit 27.0 % (36.0-47.0) Mean Corpuscular Volume 83 fL (79-100) Mean Corpuscular Hemoglobin 26 pg (25-35) Mean Corpuscular Hemoglobin Concent 31 g/dL (31-37) Red Cell Distribution Width 18.4 % (11.5-14.5) Platelet Count 85 x10^3/uL (140-400) Sodium Level 137 mmol/L (136-145) Potassium Level 4.3 mmol/L (3.5-5.1) Chloride Level 101 mmol/L (98-107) Carbon Dioxide Level 23 mmol/L (21-32) Anion Gap 13 (6-14) Blood Urea Nitrogen 50 mg/dL (7-20) Creatinine 2.8 mg/dL (0.6-1.0) Estimated GFR (Cockcroft-Gault) 20.9 Glucose Level 147 mg/dL (70-99) Lactic Acid Level 1.8 mmol/L (0.4-2.0) Calcium Level 7.8 mg/dL (8.5-10.1) Phosphorus Level 4.0 mg/dL (2.6-4.7) Magnesium Level 1.7 mg/dL (1.8-2.4) Albumin 2.4 g/dL (3.4-5.0) Microbiology Micro Microbiology 06/06/17 Blood Culture - Preliminary, Resulted NO GROWTH AFTER 1 DAY Physical Exam HEENT: Neck Supple W Full Motion Chest: Symmetric LUNGS: Other (faint basilar crackles) Heart: S1S2, RRR (Paced) Abdomen: Soft N/T Extremities: No Calf Tenderness Neurology: alert, oriented, follow commands Assessment Assessment 1. NSTEMI: Peaked troponin 22. 2. NICM: EF <20% NYHA 2, virtually unchanged from previous. appears compensated 3. CAD; non-obstructive per cath in 06/[address] [employer]ICE-d insitu: Biotronik. Paced. Recent device check with normal functioning and within parameters on 06/01 5. Hypertension; controlled 6. Sepsis/Bacteremia/Pneumonia: BC shows G+, ID following. Afebrile overnight 7. ASHLEY on CKD3: presently Cr at 2.8. Nephrology following 8. DM2/HLP 9. Anemia of chronic disease 10. IV contrast allergy Recommendations 1. Continue with heparin drip. LHC possibly Monday pending status of extracardiac issues. Will need steroid prep for contrast allergy. 2. Levophed off today and BP stable. Will restart BP meds once BP is consistently adequate. 3. ASA. Continue to hold entresto for now. Lasix PRN for now. 4. Stop metformin for now. LAUREL MENDOZA MD 06/08/17 1039: CARDIO Progress Notes Assessment Assessment Patient seen and examined 06/07/17 (late entry). Agree with ENTERTAINMENT REPORTER's assessment and plan. Patient presently off pressors. Telemetry did not show any significant arrhythmias. Continue intravenous antibiotics per ID team for sepsis. Continue heparin infusion and plan for cardiac catheterization possibly on Monday. HARSHIL KEMP APRN Jun 07, 2017 12:50 LAUREL MENDOZA MD Jun 08, 2017 10:39
--- NOTE | 2017-06-07 13:06 | RAD ---
Three views right shoulder History: pain Internally and externally rotated AP of shoulder obtained, as well as "Y" view. The glenohumeral relationship is normal. The visualized osseous structures appear intact. Ossification lateral to humeral head could be within the rotator cuff was seen in the October 06, 2016 chest x-ray. Impression: No acute findings. end impression
--- NOTE | 2017-06-07 13:56 | PDOC ---
SUBJECTIVE ROS ASHLEY + CKD IV + NSTEMI + ? Sepsis/ Bacteremia denies new s/s CVS: no Orthopnea, no CP currently RESP: no SOB, no PHILLIPS (? Not ambulated) GI: no Nausea, no Vomiting : no Dysuria, no Urgency OBJECTIVE Vital Signs Vital Signs Date Time Temp Pulse Resp B/P (MAP) Pulse Ox O2 Delivery O2 Flow Rate FiO2 06/07/17 12:50 75 96/59 06/07/17 12:00 97.6 18 96 Nasal Cannula 2.0 97.6 I & 0 Intake and Output 06/07/17 07:00 Intake Total 3473 ml Output Total 905 ml Balance 2568 ml Intake Oral 1280 ml IV Total 2193 ml Output Urine Total 905 ml # Bowel Movements 1 PHYSICAL EXAM Physical Exam General Appearance: Awake Alert Oriented x 3 In no Distress; mild facial pallor Eyes: VIsion: Dec on Left - Almost blind on Rt; Conjunctiva Normal EN: No EN Drainage Mucous Memb. moist Neck: no JVD no JVP Supple no Thyromegaly CVS: S1 S2 + Murmur No Gallop No Rub no Edema Resp: rare RLL Rales no Rhonchi no Acc. Muscle use GI: BS +ve NO Bruit Non Tender Non Distended : no CVA tenderness; no Suprapubic Tenderness Assessment & Plan ASHLEY - suspect VMN due to worsening of Cardiomyopahty which may eventually lead to ATN, Pyelonephritis cannot be ruled out. Current FLuid and E-lyte status does not necessitate emergent need for Dialysis. Will re-evaluate for Dialysis in am - discussed proximity to same darrian if LHC is contempalted. CKD III - DM/ HTNsive / NS cannot be ruled out NSTEMI - unable to use IVF pre-LHC due to sev CMyopathy Anemia: ( fe def state noteD ) ct PO Iron, HypoTN: pressors prn - cardiogenic +/- septic Lactic Acidosis - resolved - no AG CHF with worsening of previously non-ischemic ? Cardiomyopahty - await Cardiology plans, ? Role for ionotropes; ECHO noted Oliguria - watch UO - remains somewhat marginal Previous Pericardial Eff - none currently, hold lasix ? Septic Shock: ABx per ID - ? Pn source vs other (UTI was suspected but cx - ve so far) Discussed Plan of Care and prognosis etc. at length with pt and RN at bedside COMMENT/RELEVANT DATA Meds Current Medications Medications (Trade) Dose Ordered Sig/Wilfrid Start Time Stop Time Status Last Admin Dose Admin Acetaminophen (Tylenol) 1,000 mg 1X ONCE 06/05/17 20:15 06/05/17 20:21 DC 06/05/17 20:17 1,000 MG Acetaminophen/ Hydrocodone Bitart (Lortab 5/325) 1 tab PRN Q6HRS PRN 06/06/17 20:30 06/07/17 03:50 1 TAB Albuterol/ Ipratropium (Duoneb) 3 ml RTQID 06/06/17 08:00 06/07/17 07:59 DC Aspirin (Children'S Aspirin) 324 mg 1X ONCE 06/05/17 19:45 06/05/17 19:46 DC 06/05/17 19:48 324 MG Aspirin (Ecotrin) 81 mg [id number] 06/07/17 08:00 06/07/17 08:20 81 MG Benzonatate (Tessalon Perle) 100 mg TID 06/07/17 04:00 06/07/17 12:45 100 MG Capsaicin (Zostrix) 1 nelson TID 06/06/17 21:00 06/07/17 12:45 1 NELSON Cefepime HCl (Maxipime) 2 gm Q12HR 06/05/17 21:00 06/07/17 10:00 2 GM Cefepime HCl 2 gm/ Dextrose 100 ml @ 200 mls/hr 1X ONCE 06/05/17 20:00 06/05/17 20:04 DC Docusate Sodium (Colace) 100 mg DAILY 06/07/17 10:30 06/07/17 10:00 100 MG Furosemide (Lasix) 40 mg 1X ONCE 06/06/17 10:00 06/06/17 10:01 DC 06/06/17 10:09 40 MG Guaifenesin (Robitussin Dm) 10 ml QID 06/06/17 09:00 06/07/17 12:45 10 ML Heparin Sodium (Porcine) (Heparin Sodium) 2,000 unit PRN Q6HRS PRN 06/06/17 09:15 Heparin Sodium/ Dextrose 500 ml @ 0 mls/hr CONT PRN 06/06/17 09:15 06/07/17 11:16 17.7 MLS/HR Lactobacillus Rhamnosus (Culturelle) 1 cap BID 06/06/17 21:00 06/07/17 08:20 1 CAP Magnesium Sulfate/ Dextrose 50 ml @ 25 mls/hr 1X ONCE 06/07/17 09:00 06/07/17 10:59 DC 06/07/17 08:55 25 MLS/HR Metoprolol Tartrate (Lopressor) 12.5 mg BID 06/07/17 13:30 Norepinephrine Bitartrate 250 ml @ 0 mls/hr CONT PRN 06/05/17 22:45 06/05/17 23:13 9.375 MLS/HR Ondansetron HCl (Zofran) 4 mg PRN Q6HRS PRN 06/06/17 09:00 06/07/17 08:59 DC Sodium Chloride 1,000 ml @ 75 mls/hr [id number] 06/05/17 20:06 06/06/17 20:05 DC 06/06/17 10:30 75 MLS/HR Vancomycin HCl 1 each 1X ONCE 06/07/17 20:00 06/07/17 20:00 DC Vancomycin HCl (Vanco Per Pharmacy) 1 each PRN DAILY PRN 06/05/17 20:15 06/07/17 09:14 DC 06/06/17 15:14 1 EACH Vancomycin HCl 1.25 gm/Sodium Chloride 250 ml @ 167 mls/hr Q24H 06/06/17 22:00 06/06/17 22:00 DC Vancomycin HCl 2 gm/Dextrose/ Sodium Chloride 500 ml @ 250 mls/hr 1X ONCE 06/05/17 21:00 06/05/17 22:59 DC 06/05/17 21:45 250 MLS/HR Lab Laboratory Tests Test 06/06/17 17:45 06/06/17 21:05 06/07/17 00:35 06/07/17 07:00 Heparin Anti-Xa Act, Unfractionated 0.57 IU/mL (0.30-0.70) 0.54 IU/mL (0.30-0.70) 0.49 IU/mL (0.30-0.70) Troponin I Quantitative 20.486 ng/mL (0.000-0.055) Glucose (Fingerstick) 131 mg/dL (70-99) White Blood Count 14.6 x10^3/uL (4.0-11.0) Red Blood Count 3.24 x10^6/uL (3.50-5.40) Hemoglobin 8.5 g/dL (12.0-15.5) Hematocrit 27.0 % (36.0-47.0) Mean Corpuscular Volume 83 fL (79-100) Mean Corpuscular Hemoglobin 26 pg (25-35) Mean Corpuscular Hemoglobin Concent 31 g/dL (31-37) Red Cell Distribution Width 18.4 % (11.5-14.5) Platelet Count 85 x10^3/uL (140-400) Sodium Level 137 mmol/L (136-145) Potassium Level 4.3 mmol/L (3.5-5.1) Chloride Level 101 mmol/L (98-107) Carbon Dioxide Level 23 mmol/L (21-32) Anion Gap 13 (6-14) Blood Urea Nitrogen 50 mg/dL (7-20) Creatinine 2.8 mg/dL (0.6-1.0) Estimated GFR (Cockcroft-Gault) 20.9 Glucose Level 147 mg/dL (70-99) Lactic Acid Level 1.8 mmol/L (0.4-2.0) Calcium Level 7.8 mg/dL (8.5-10.1) Phosphorus Level 4.0 mg/dL (2.6-4.7) Magnesium Level 1.7 mg/dL (1.8-2.4) Albumin 2.4 g/dL (3.4-5.0) INGRID LOMBARDI MD Jun 07, 2017 13:56
[2017-06-07 14:24] LABS: SPECIMEN SOURCE Urine (.)
[2017-06-07 16:17] LABS: KAPPA LAMBDA RATIO 0.95 (0.26-1.65)
[2017-06-08 04:00] VITALS: BP 95/51
[2017-06-08 07:01] LABS: ALBUMIN 2.3 g/dL (3.4-5.0); CALCIUM 8.4 mg/dL (8.5-10.1); CREATININE 3.2 mg/dL (0.6-1.0); GFR 17.9
[2017-06-08 07:02] LABS: MAGNESIUM 2.1 mg/dL (1.8-2.4); PHOSPHORUS 3.8 mg/dL (2.6-4.7); POTASSIUM 4.2 mmol/L (3.5-5.1)
[2017-06-08 08:40] VITALS: BP 99/58
[2017-06-08] MEDS: DOCUSATE SODIUM 100 MG CAPSULE. PO SCH (09:01)
[2017-06-08] MEDS: LACTOBACILLUS RHAMNOSUS GG 1 CAPSULE. PO SCH ×2 (09:01→21:39)
[2017-06-08] MEDS: ASPIRIN ENTERIC COATED 81 MG TABLET.DR. PO SCH (09:01)
[2017-06-08] MEDS: METOPROLOL TART IMMED RELEASE 25 MG TABLET. PO SCH ×2 (09:01→21:40)
[2017-06-08] MEDS: guaiFENesin DM 200MG/20MG 10 ML SYRUP PO SCH ×4 (09:01→21:40)
[2017-06-08] MEDS: BENZONATATE 100 MG CAPSULE. PO SCH ×3 (09:01→21:40)
[2017-06-08] MEDS: CEFEPIME HCL IV Push 2 GM VIAL. IVP SCH (09:02)
[2017-06-08] MEDS: CAPSAICIN 0.025% TOPICAL CREAM 60GM TUBE. TP SCH ×3 (09:02→21:40)
--- NOTE | 2017-06-08 09:31 | PDOC ---
PROGRESS NOTES Chief Complaint Chief Complaint Severe cardiomyopathy with EF 20%, severe global hypokinesis Possible sepsis, septic shock requiring pressors Cough, fevers, tachycardia, AK I on CK D, elevated lactate, elevated BNP, anemia of chronic disease, Overweight BMI 29.5 Gram positive bacteremia (GPC in chains, likely strep) Diabetes type 2, Pacemaker/AICD in situ N STEMI, dyslipidemia Right shoulder pain, musculoskeletal OLiguric RF Thrombocytopenia, multifactorial, sepsis, heparin gtt History of Present Illness History of Present Illness Maintained in ICU on heparin drip ongoing since almost daily of admission because of N STEMI. Patient has severe cardiomyopathy with EF less than 20%. Overall prognosis is poor. New issues today: oliguric renal failure, creatinine elevated at 3.2, urine output 300 mL in a 24-hour period Another issue is her platelets are dropping, today is 85, from 127 from normal on admit. Patient is being treated for septic shock, needed pressors on day 1 or 2 of hospitalization, with ID on board. Plans: Plans of LHC by cardiology fri will involve hematology oncology because of the dropping platelets, patient heparin drip, patient sepsis Sepsis protocol, recheck lactate if needed if it was elevated last time. Nephrology also on board because of the oliguric renal failure. Patient seems to not know most of her medical issues. PCP Dr. Quintanilla. She claims all this is news to her. She does go to Dr. Quintanilla's office with a pie bakery laborer. We did advise her to list of her medical issues or at least keep the discharge paperwork that we will be giving to her so that she will be aware of all her chronic medical issues. Overall prognosis of this patient is rather poor and guarded. Low EF 20%, DM 2, uncontrolleds, and now kidney problems. BS high, start SSI. She takes Lantus 10 units daily at bedtime, we'll restart this Discussed with MORTGAGE COUNSELOR at bedside is a full code critical care time 32 minutes Vitals Vitals Vital Signs Date Time Temp Pulse Resp B/P (MAP) Pulse Ox O2 Delivery O2 Flow Rate FiO2 06/08/17 09:01 87 99/58 06/08/17 08:40 98.6 19 100 Nasal Cannula 2.0 98.6 Physical Exam General: Alert, Oriented X3, Cooperative, No acute distress Heart: Regular rate (Paced), Other (3/6/systolic murmur to LLS border) Lungs: Clear, Other Abdomen: Soft Extremities: No cyanosis, No edema Skin: No breakdown, No significant lesion Labs LABS Laboratory Tests Test 06/07/17 21:14 06/08/17 06:30 Glucose (Fingerstick) 167 mg/dL (70-99) Heparin Anti-Xa Act, Unfractionated 0.26 IU/mL (0.30-0.70) Sodium Level 136 mmol/L (136-145) Potassium Level 4.2 mmol/L (3.5-5.1) Chloride Level 101 mmol/L (98-107) Carbon Dioxide Level 25 mmol/L (21-32) Anion Gap 10 (6-14) Blood Urea Nitrogen 59 mg/dL (7-20) Creatinine 3.2 mg/dL (0.6-1.0) Estimated GFR (Cockcroft-Gault) 17.9 Glucose Level 174 mg/dL (70-99) Calcium Level 8.4 mg/dL (8.5-10.1) Phosphorus Level 3.8 mg/dL (2.6-4.7) Magnesium Level 2.1 mg/dL (1.8-2.4) Albumin 2.3 g/dL (3.4-5.0) Review of Systems Review of Systems weak, SOA at short distances, no chest pain, no abdominal issues A 14 point ROS was completed with the following noted as positive: Other systems reviewed and negative. \CONSTITUTIONAL: No fever or chills EYES: No recent changes SKIN: No rash or itching CARDIOVASCULAR: No chest pain, syncope, palpitations, or edema RESPIRATORY: No SOB or cough GASTROINTESTINAL: No nausea, vomiting or abdominal pain NEUROLOGICAL: No headaches or weakness ENDOCRINE: No cold or heat intolerance GENITOURINARY: No urgency or frequency of urination MUSCULOSKELETAL: No back pain or joint pain LYMPHATICS: No enlarged lymph nodes PSYCHIATRIC: No anxiety or depression Assessment and Plan Assessmemt and Plan Problems Medical Problems: (1) Congestive heart disease Status: Acute (2) Elevated troponin Status: Acute (3) Pneumonia Status: Acute (4) Sepsis Status: Acute Problems: Comment Review of Relevant I have reviewed the following items bro (where applicable) has been applied. Labs Laboratory Tests Test 06/06/17 10:30 06/06/17 11:00 06/06/17 17:45 06/06/17 21:05 Body Fluid Culture (LAB) (.) Streptococcus pneumoniae Antigen Negative (Negative) Organism Identification (LAB) (.) TANJA Specimen Source Urine (.) Urine Collection Type U cath Urine Color Irene Urine Clarity Clear Urine pH 5.0 Urine Specific [place] 1.020 Urine Protein 30 mg/dL (NEG-TRACE) Urine Glucose (UA) Negative mg/dL (NEG) Urine Ketones (Stick) Trace mg/dL (NEG) Urine Blood Negative (NEG) Urine Nitrite Negative (NEG) Urine Bilirubin Small (NEG) Urine Urobilinogen Dipstick 0.2 mg/dL (0.2 mg/dL) Urine Leukocyte Esterase Moderate (NEG) Urine RBC 0 /HPF (0-2) Urine WBC 11-20 /HPF (0-4) Urine Squamous Epithelial Cells Mod /LPF Urine Bacteria Moderate /HPF (0-FEW) Urine Mucus Slight /LPF Heparin Anti-Xa Act, Unfractionated 0.57 IU/mL (0.30-0.70) Troponin I Quantitative 20.486 ng/mL (0.000-0.055) Glucose (Fingerstick) 131 mg/dL (70-99) Test 06/07/17 00:35 06/07/17 07:00 06/07/17 21:14 06/08/17 06:30 Heparin Anti-Xa Act, Unfractionated 0.54 IU/mL (0.30-0.70) 0.49 IU/mL (0.30-0.70) 0.26 IU/mL (0.30-0.70) White Blood Count 14.6 x10^3/uL (4.0-11.0) Red Blood Count 3.24 x10^6/uL (3.50-5.40) Hemoglobin 8.5 g/dL (12.0-15.5) Hematocrit 27.0 % (36.0-47.0) Mean Corpuscular Volume 83 fL (79-100) Mean Corpuscular Hemoglobin 26 pg (25-35) Mean Corpuscular Hemoglobin Concent 31 g/dL (31-37) Red Cell Distribution Width 18.4 % (11.5-14.5) Platelet Count 85 x10^3/uL (140-400) Sodium Level 137 mmol/L (136-145) 136 mmol/L (136-145) Potassium Level 4.3 mmol/L (3.5-5.1) 4.2 mmol/L (3.5-5.1) Chloride Level 101 mmol/L (98-107) 101 mmol/L (98-107) Carbon Dioxide Level 23 mmol/L (21-32) 25 mmol/L (21-32) Anion Gap 13 (6-14) 10 (6-14) Blood Urea Nitrogen 50 mg/dL (7-20) 59 mg/dL (7-20) Creatinine 2.8 mg/dL (0.6-1.0) 3.2 mg/dL (0.6-1.0) Estimated GFR (Cockcroft-Gault) 20.9 17.9 Glucose Level 147 mg/dL (70-99) 174 mg/dL (70-99) Lactic Acid Level 1.8 mmol/L (0.4-2.0) Calcium Level 7.8 mg/dL (8.5-10.1) 8.4 mg/dL (8.5-10.1) Phosphorus Level 4.0 mg/dL (2.6-4.7) 3.8 mg/dL (2.6-4.7) Magnesium Level 1.7 mg/dL (1.8-2.4) 2.1 mg/dL (1.8-2.4) Albumin 2.4 g/dL (3.4-5.0) 2.3 g/dL (3.4-5.0) Glucose (Fingerstick) 167 mg/dL (70-99) Laboratory Tests Test 06/07/17 21:14 06/08/17 06:30 Glucose (Fingerstick) 167 mg/dL (70-99) Heparin Anti-Xa Act, Unfractionated 0.26 IU/mL (0.30-0.70) Sodium Level 136 mmol/L (136-145) Potassium Level 4.2 mmol/L (3.5-5.1) Chloride Level 101 mmol/L (98-107) Carbon Dioxide Level 25 mmol/L (21-32) Anion Gap 10 (6-14) Blood Urea Nitrogen 59 mg/dL (7-20) Creatinine 3.2 mg/dL (0.6-1.0) Estimated GFR (Cockcroft-Gault) 17.9 Glucose Level 174 mg/dL (70-99) Calcium Level 8.4 mg/dL (8.5-10.1) Phosphorus Level 3.8 mg/dL (2.6-4.7) Magnesium Level 2.1 mg/dL (1.8-2.4) Albumin 2.3 g/dL (3.4-5.0) Microbiology 06/06/17 Blood Culture - Preliminary, Resulted NO GROWTH AFTER 1 DAY 06/07/17 - Final, Resulted 06/07/17 - Final, Resulted 06/07/17 - Final, Resulted 06/07/17 Gram Stain Evaluation - Final, Resulted 06/07/17 Sputum Culture, Resulted Pending 06/06/17 Urine Culture - Preliminary, Resulted 06/06/17 Urine Culture Result 1 (TANJA) - Preliminary, Resulted Medications Current Medications Ondansetron HCl (Zofran) 8 mg 1X ONCE IV Last administered on 06/05/17 18:36 ; Start 06/05/17 at 18:30; Stop 06/05/17 at 18:31; Status DC Aspirin (Children'S Aspirin) 324 mg 1X ONCE PO Last administered on 19:48; Start 06/05/17 at 19:45; Stop 06/05/17 at 19:46; Status DC Sodium Chloride 1,000 ml @ 1,000 mls/hr 1X ONCE IV Last administered on 06/05 20:12; Start 06/05/17 at 20:00; Stop 06/05/17 at 20:59; Status DC Cefepime HCl 2 gm/ Dextrose 100 ml @ 200 mls/hr 1X ONCE IV ; Start 06/05/17 at 20:00; Stop 06/05/17 at 20:04; Status DC Cefepime HCl (Maxipime) 2 gm Q12HR IVP Last administered on 06/08/17 09:02; Start 06/05/17 at 21:00; Stop 06/08/17 at 09:21; Status DC Ondansetron HCl (Zofran) 4 mg PRN Q8HRS PRN IV NAUSEA/VOMITING; Start at 20:15; Stop 06/06/17 at 08:52; Status DC Sodium Chloride 1,000 ml @ 75 mls/hr [id number] IV Last administered on 10:30; Start 06/05/17 at 20:06; Stop 06/06/17 at 20:05; Status DC Albuterol/ Ipratropium (Duoneb) 3 ml RTQID NEB ; Start 06/06/17 at 08:00; Stop 06/07/17 at 07:59; Status DC Acetaminophen (Tylenol) 650 mg PRN Q6HRS PRN PO fever Last administered on 16:33; Start 06/05/17 at 20:15 Vancomycin HCl (Vanco Per Pharmacy) 1 each PRN DAILY PRN MC SEE COMMENTS Last administered on 06/06/17 15:14; Start 06/05/17 at 20:15; Stop 06/07/17 at 09 :14; Status DC Acetaminophen (Tylenol) 1,000 mg 1X ONCE PO Last administered on 06/05/17 20 :17; Start 06/05/17 at 20:15; Stop 06/05/17 at 20:21; Status DC Vancomycin HCl 2 gm/Dextrose/ Sodium Chloride 500 ml @ 250 mls/hr 1X ONCE IV Last administered on 06/05/17 21:45; Start 06/05/17 at 21:00; Stop 06/05/17 at 22:59; Status DC Vancomycin HCl 1.25 gm/Sodium Chloride 250 ml @ 167 mls/hr Q24H IV ; Start at 22:00; Stop 06/06/17 at 22:00; Status DC Vancomycin HCl 1 each 1X ONCE MC ; Start 06/07/17 at 20:00; Stop 06/07/17 at 20:00; Status DC Norepinephrine Bitartrate 250 ml @ 0 mls/hr CONT PRN IV SEE I/O RECORD Last administered on 06/05/17 23:13; Start 06/05/17 at 22:45 Magnesium Sulfate/ Dextrose 50 ml @ 25 mls/hr PRN DAILY PRN IV for Mag < 1.7 on am labs Last administered on 06/06/17 12:40; Start 06/06/17 at 08:30 Ondansetron HCl (Zofran) 4 mg PRN Q6HRS PRN IV NAUSEA/VOMITING; Start at 09:00; Stop 06/07/17 at 08:59; Status DC Guaifenesin (Robitussin Dm) 10 ml QID PO Last administered on 06/08/17 09:01 ; Start 06/06/17 at 09:00 Heparin Sodium (Porcine) (Heparin Sodium) 4,000 unit 1X ONCE IV Last administered on 06/06/17 10:19; Start 06/06/17 at 09:15; Stop 06/06/17 at 09 :21; Status DC Heparin Sodium/ Dextrose 500 ml @ 0 mls/hr CONT PRN IV SEE I/O RECORD Last administered on 06/07/17 11:16; Start 06/06/17 at 09:15 Heparin Sodium (Porcine) (Heparin Sodium) 2,000 unit PRN Q6HRS PRN IV FOR UFH LEVEL LESS THAN 0.2; Start 06/06/17 at 09:15 Furosemide (Lasix) 40 mg 1X ONCE IVP Last administered on 06/06/17 10:09; Start 06/06/17 at 10:00; Stop 06/06/17 at 10:01; Status DC Aspirin (Ecotrin) 81 mg [id number] PO Last administered on 06/08/17 09:01; Start 06/07/17 at 08:00 Lactobacillus Rhamnosus (Culturelle) 1 cap BID PO Last administered on 09:01; Start 06/06/17 at 21:00 Acetaminophen/ Hydrocodone Bitart (Lortab 5/325) 1 tab PRN Q6HRS PRN PO PAIN Last administered on 06/07/17 03:50; Start 06/06/17 at 20:30 Capsaicin (Zostrix) 1 nelson TID TP Last administered on 06/08/17 09:02; Start 06/06/17 at 21:00 Benzonatate (Tessalon Perle) 100 mg TID PO Last administered on 06/08/17 09: 01; Start 06/07/17 at 04:00 Magnesium Sulfate/ Dextrose 50 ml @ 25 mls/hr 1X ONCE IV Last administered on 06/07/17 08:55; Start 06/07/17 at 09:00; Stop 06/07/17 at 10:59; Status DC Docusate Sodium (Colace) 100 mg DAILY PO Last administered on 06/08/17 09:01 ; Start 06/07/17 at 10:30 Metoprolol Tartrate (Lopressor) 12.5 mg BID PO Last administered on 06/08/17t 09:01; Start 06/07/17 at 13:30 Info (Anti-Coagulation Monitoring By Pharmacy) 1 each PRN DAILY PRN MC SEE COMMENTS; Start 06/08/17 at 08:00 Ondansetron HCl (Zofran) 4 mg PRN Q6HRS PRN IV NAUSEA/VOMITING 1ST CHOICE; Start 06/08/17 at 09:00 Active Scripts Active Cyclobenzaprine Hcl 10 Mg Tablet 1 Tab PO QHS Reported Coreg (Carvedilol) 6.25 Mg Tablet 1.5 Tab PO BID Entresto 49 mg-51 mg Tablet (Sacubitril/Valsartan) 1 Each Tablet 1 Each PO BID Atorvastatin Calcium 40 Mg Tablet 40 Mg PO HS Miralax (Polyethylene Glycol 3350) 17 Gm Powd.pack 1 Packet PO PRN DAILY PRN Colace (Docusate Sodium) 100 Mg Capsule 1 Cap PO DAILY Furosemide 20 Mg Tablet 40 Mg PO DAILY Gabapentin 300 Mg Capsule 600 Mg PO PRN TID PRN Vitamin B-12 (Cyanocobalamin (Vitamin B-12)) 1,000 Mcg Tablet 500 Mcg PO DAILY Lantus Solostar (Insulin Glargine,Hum.rec.anlog) 100 Unit/1 Ml Insuln.pen 25 Unit SQ QHS Novolog (Insulin Aspart) 100 Unit/1 Ml Cartridge 3 Unit SQ TIDAC Aspirin 81 Mg Tab.chew 81 Mg PO DAILY Metformin Hcl 500 Mg Tablet 1,000 Mg PO BID Vitals/I & O Vital Sign - Last 24 Hours 06/07/17 06/07/17 06/07/17 06/07/17 10:00 12:00 12:50 15:00 Temp 97.6 98.2 97.6 98.2 Pulse 85 75 75 73 Resp 12 18 13 B/P (MAP) 108/59 (75) 96/59 (71) 96/59 77/49 (58) Pulse Ox 99 96 100 O2 Delivery Nasal Cannula Nasal Cannula Nasal Cannula O2 Flow Rate 2.0 2.0 2.0 06/07/17 06/07/17 06/07/17 06/07/17 16:17 20:00 20:00 20:44 Temp 97.8 97.7 97.8 97.7 Pulse 73 74 79 Resp 14 11 B/P (MAP) 84/51 (62) 87/55 (66) 87/55 Pulse Ox 100 99 O2 Delivery Nasal Cannula Nasal Cannula Nasal Cannula O2 Flow Rate 2.0 2.0 2.0 06/07/17 06/08/17 06/08/17 06/08/17 23:59 04:00 07:39 08:40 Temp 97.8 98.1 98.6 97.8 98.1 98.6 Pulse 81 84 87 Resp 14 19 19 B/P (MAP) 83/42 (56) 95/51 (66) 99/58 (72) Pulse Ox 99 99 100 O2 Delivery Nasal Cannula Nasal Cannula Nasal Cannula Nasal Cannula O2 Flow Rate 2.0 2.0 2.0 2.0 06/08/17 09:01 Pulse 87 B/P (MAP) 99/58 Intake and Output 06/07/17 06/07/17 06/08/17 15:00 23:00 07:00 Intake Total 530 ml 590 ml 229 ml Output Total 305 ml 100 ml 150 ml Balance 225 ml 490 ml 79 ml Nutrition Consultation Dietary Evaluation: Recommendations by RD: Increase Calorie Intake Comments: Avoid prolonged NPO/CLD status REC diet advancement to Cardiac/ADA within 24 - 48 hrs Expected Outcomes/Goals: Diet advancement within 24 - 48 hrs Interpretation of weight loss: >5% in 1 month Malnutrition Findings: Food and Nutrition Intake (Mod: <75% est energy req 7days Weight Status: Overweight BATOOL GRIGGS MD Jun 08, 2017 09:31
[2017-06-08] MEDS ORDERED: DEXTROSE 50% 25 GM / 50ML DISP.SYRIN. IV PRN (09:45)
--- NOTE | 2017-06-08 09:59 | PDOC ---
SUBJECTIVE ROS SAHLEY/ ATN + CKD IV not feeling too good CVS: no Orthopnea, + CP RESP: min SOB, ? PHILLIPS , + Cought GI: no Nausea, no Vomiting : no Dysuria, no Urgency OBJECTIVE Vital Signs Vital Signs Date Time Temp Pulse Resp B/P (MAP) Pulse Ox O2 Delivery O2 Flow Rate FiO2 06/08/17 09:01 87 99/58 06/08/17 08:40 98.6 19 100 Nasal Cannula 2.0 98.6 I & 0 Intake and Output 06/08/17 07:00 Intake Total 1349 ml Output Total 555 ml Balance 794 ml Intake Oral 880 ml IV Total 469 ml Output Urine Total 555 ml PHYSICAL EXAM Physical Exam General Appearance: Awake Alert Oriented x 3 In no Distress; mild facial pallor Eyes: VIsion: Dec on Left - Almost blind on Rt; Conjunctiva Normal EN: No EN Drainage Mucous Memb. moist Neck: no JVD no JVP Supple no Thyromegaly CVS: S1 S2 + Murmur No Gallop No Rub no Edema Resp: rare RLL Rales no Rhonchi no Acc. Muscle use GI: BS +ve NO Bruit Non Tender Non Distended : no CVA tenderness; no Suprapubic Tenderness SKIN: no Rashes Breast Exam deferred Mu.Sk: Adequate ROM min Muscle Atrophy Heme: Unable to palpate Obvious LAD no palp Splenomegaly NEURO: Good Strength and Tone Cranial Nerves II - XII grossly intact; no asterixis Psych: ? Depressed no Active hallucination Assessment & Plan: ASHLEY - suspect VMN due to worsening of Cardiomyopahty which may eventually lead to ATN, Current FLuid and E-lyte status does not necessitate emergent need for Dialysis. Will re-evaluate for Dialysis in am - discussed proximity to same darrian if [facility] is contemplated. I have discussed Temp HD Line placement and upcming need for HD (temp line pending clearing of infection). She may end up on HD hereafter if CMyopahty persists Oliguria (marginal) - presumably as above - Anticipate need for HD soon; ? due to holding lasix Anorexia - ? due to systemic infection vs Uremic prodrome; antiicpate need for HD soon CKD III - DM/ HTNsive / NS cannot be ruled out NSTEMI - gentle IVF pre-C darrian given dec in UO - ? need for Ionotropes Anemia: ( fe def state noteD ) PO Iron, HypoTN:appears to be somewhat better currenlty off of Pressors: cardiogenic +/ - septic CHF with worsening of previously non-ischemic ? Cardiomyopathy -LHC in am is planned ? Role for ionotropes; ECHO noted ? Sepsis : ? Pn source - appears to be improving. ^ed Protein gap - ? Paraprotienemia - await PEPS as ordered Discussed Plan of Care and prognosis etc. at length re HD (she agrees to line placemnt for nwo) with pt and RN at bedside COMMENT/RELEVANT DATA Meds Current Medications Medications (Trade) Dose Ordered Sig/Wilfrid Start Time Stop Time Status Last Admin Dose Admin Acetaminophen (Tylenol) 1,000 mg 1X ONCE 06/05/17 20:15 06/05/17 20:21 DC 06/05/17 20:17 1,000 MG Acetaminophen/ Hydrocodone Bitart (Lortab 5/325) 1 tab PRN Q6HRS PRN 06/06/17 20:30 06/07/17 03:50 1 TAB Albuterol/ Ipratropium (Duoneb) 3 ml RTQID 06/06/17 08:00 06/07/17 07:59 DC Aspirin (Children'S Aspirin) 324 mg 1X ONCE 06/05/17 19:45 06/05/17 19:46 DC 06/05/17 19:48 324 MG Aspirin (Ecotrin) 81 mg [id number] 06/07/17 08:00 06/08/17 09:01 81 MG Benzonatate (Tessalon Perle) 100 mg TID 06/07/17 04:00 06/08/17 09:01 100 MG Capsaicin (Zostrix) 1 nelson TID 06/06/17 21:00 06/08/17 09:02 1 NELSON Cefepime HCl (Maxipime) 2 gm Q12HR 06/05/17 21:00 06/08/17 09:21 DC 06/08/17 09:02 2 GM Cefepime HCl 2 gm/ Dextrose 100 ml @ 200 mls/hr 1X ONCE 06/05/17 20:00 06/05/17 20:04 DC Ceftriaxone Sodium 2 gm/ Dextrose 100 ml @ 200 mls/hr Q12HR 06/08/17 21:00 UNV Ceftriaxone Sodium (Rocephin) 2 gm Q12HR 06/08/17 10:00 Dextrose (Dextrose 50%-Water Syringe) 12.5 gm PRN Q15MIN PRN 06/08/17 09:45 UNV Docusate Sodium (Colace) 100 mg DAILY 06/07/17 10:30 06/08/17 09:01 100 MG Furosemide (Lasix) 40 mg 1X ONCE 06/06/17 10:00 06/06/17 10:01 DC 06/06/17 10:09 40 MG Guaifenesin (Robitussin Dm) 10 ml QID 06/06/17 09:00 06/08/17 09:01 10 ML Heparin Sodium (Porcine) (Heparin Sodium) 2,000 unit PRN Q6HRS PRN 06/06/17 09:15 Heparin Sodium/ Dextrose 500 ml @ 0 mls/hr CONT PRN 06/06/17 09:15 06/07/17 11:16 17.7 MLS/HR Info (Anti-Coagulation Monitoring By Pharmacy) 1 each PRN DAILY PRN 06/08/17 08:00 Insulin Aspart (NovoLOG) 0-9 UNITS TIDWMEALS 06/08/17 12:00 UNV Insulin Detemir (Levemir) 10 units QHS 06/08/17 21:00 UNV Lactobacillus Rhamnosus (Culturelle) 1 cap BID 06/06/17 21:00 06/08/17 09:01 1 CAP Levofloxacin (Levaquin) 250 mg 1X ONCE 06/08/17 09:30 06/08/17 09:30 DC Magnesium Sulfate/ Dextrose 50 ml @ 25 mls/hr 1X ONCE 06/07/17 09:00 06/07/17 10:59 DC 06/07/17 08:55 25 MLS/HR Metoprolol Tartrate (Lopressor) 12.5 mg BID 06/07/17 13:30 06/08/17 09:01 12.5 MG Norepinephrine Bitartrate 250 ml @ 0 mls/hr CONT PRN 06/05/17 22:45 06/05/17 23:13 9.375 MLS/HR Ondansetron HCl (Zofran) 4 mg PRN Q6HRS PRN 06/08/17 09:00 Sodium Chloride 1,000 ml @ 75 mls/hr [id number] 06/05/17 20:06 06/06/17 20:05 DC 06/06/17 10:30 75 MLS/HR Vancomycin HCl 1 each 1X ONCE 06/07/17 20:00 06/07/17 20:00 DC Vancomycin HCl (Vanco Per Pharmacy) 1 each PRN DAILY PRN 06/05/17 20:15 06/07/17 09:14 DC 06/06/17 15:14 1 EACH Vancomycin HCl 1.25 gm/Sodium Chloride 250 ml @ 167 mls/hr Q24H 06/06/17 22:00 06/06/17 22:00 DC Vancomycin HCl 2 gm/Dextrose/ Sodium Chloride 500 ml @ 250 mls/hr 1X ONCE 06/05/17 21:00 06/05/17 22:59 DC 06/05/17 21:45 250 MLS/HR Lab Laboratory Tests Test 06/07/17 21:14 06/08/17 06:30 Glucose (Fingerstick) 167 mg/dL (70-99) Heparin Anti-Xa Act, Unfractionated 0.26 IU/mL (0.30-0.70) Sodium Level 136 mmol/L (136-145) Potassium Level 4.2 mmol/L (3.5-5.1) Chloride Level 101 mmol/L (98-107) Carbon Dioxide Level 25 mmol/L (21-32) Anion Gap 10 (6-14) Blood Urea Nitrogen 59 mg/dL (7-20) Creatinine 3.2 mg/dL (0.6-1.0) Estimated GFR (Cockcroft-Gault) 17.9 Glucose Level 174 mg/dL (70-99) Calcium Level 8.4 mg/dL (8.5-10.1) Phosphorus Level 3.8 mg/dL (2.6-4.7) Magnesium Level 2.1 mg/dL (1.8-2.4) Albumin 2.3 g/dL (3.4-5.0) INGRID LOMBARDI MD Jun 08, 2017 09:59
[2017-06-08] MEDS: FERROUS SULFATE 325 MG TABLET. PO SCH (10:32)
[2017-06-08] MEDS: cefTRIAXone IV Push 2 GM VIAL. IVP SCH ×2 (10:32→21:40)
[2017-06-08 12:00] VITALS: BP 93/54
[2017-06-08] MEDS: INSULIN ASPART 300 UNITS/3 ML INSULN.PEN SQ SCH ×2 (13:08→16:45)
[2017-06-08] MEDS: ANTI-COAG MONITOR BY PHARMACY. MC PRN ×2 (14:15→14:20)
[2017-06-08 14:24] LABS: ALPHA 1 0.3 g/dL (0.0-0.4); ALPHA 2 0.6 g/dL (0.4-1.0); BETA 1.2 g/dL (0.7-1.3); IMMUNOGLOBULIN A 438 mg/dL (87-352); IMMUNOGLOBULIN G 3098 mg/dL (700-1600); IMMUNOGLOBULIN M 90 mg/dL (26-217); M-SPIKE Not Observed g/dL (Not Observed); PROTEIN TOTAL 8.1 g/dL (6.0-8.5)
[2017-06-08 15:00] VITALS: BP 99/54
--- NOTE | 2017-06-08 15:52 | PDOC ---
HARSHIL KEMP OCCUPATIONAL THERAPIST ASSISTANT 06/08/17 1552: CARDIO Progress Notes Date and Time Date of Service 06/08/2017 Time of Evaluation 1500 Subjective Subjective: No Chest Pain, No shortness of breath, No Palpitations, Other ( sitting up eating) Vitals Vitals Vital Signs Date Time Temp Pulse Resp B/P (MAP) Pulse Ox O2 Delivery O2 Flow Rate FiO2 06/08/17 12:00 98.8 79 18 93/54 (67) 98 Nasal Cannula 2.0 98.8 Weight Weight [ ] Input and Output Intake and Output Intake and Output 06/08/17 07:00 Intake Total 1349 ml Output Total 555 ml Balance 794 ml Intake Oral 880 ml IV Total 469 ml Output Urine Total 555 ml Laboratory Labs Laboratory Tests Test 06/07/17 21:14 06/08/17 06:30 06/08/17 12:20 06/08/17 14:25 Glucose (Fingerstick) 167 mg/dL (70-99) 178 mg/dL (70-99) Heparin Anti-Xa Act, Unfractionated 0.26 IU/mL (0.30-0.70) 0.35 IU/mL (0.30-0.70) Sodium Level 136 mmol/L (136-145) Potassium Level 4.2 mmol/L (3.5-5.1) Chloride Level 101 mmol/L (98-107) Carbon Dioxide Level 25 mmol/L (21-32) Anion Gap 10 (6-14) Blood Urea Nitrogen 59 mg/dL (7-20) Creatinine 3.2 mg/dL (0.6-1.0) Estimated GFR (Cockcroft-Gault) 17.9 Glucose Level 174 mg/dL (70-99) Calcium Level 8.4 mg/dL (8.5-10.1) Phosphorus Level 3.8 mg/dL (2.6-4.7) Magnesium Level 2.1 mg/dL (1.8-2.4) Albumin 2.3 g/dL (3.4-5.0) Microbiology Micro Microbiology 06/06/17 Blood Culture - Preliminary, Resulted NO GROWTH AFTER 2 DAYS 06/07/17 - Final, Resulted 06/07/17 - Final, Resulted 06/07/17 - Final, Resulted 06/07/17 Gram Stain Evaluation - Final, Resulted 06/07/17 Sputum Culture - Preliminary, Resulted 06/07/17 Sputum Result 1 - Final, Resulted 06/06/17 Urine Culture - Final, Complete 06/06/17 Urine Culture Result 1 (TANJA) - Final, Complete Physical Exam HEENT: Neck Supple W Full Motion Chest: Symmetric LUNGS: Other (diminished bases) Heart: S1S2, RRR (Paced) Abdomen: Soft N/T Extremities: No Edema, No Calf Tenderness Neurology: alert, oriented, follow commands Assessment Assessment 1. NSTEMI: peaked trop 22. 2. NICM: EF <20% NYHA 2, appears compensated 3. CAD; non-obstructive per cath in 06/2015 moderate disease to LAD 4. TUR[employer] G[employer]ER-d insitu: Biotronik. Paced. Recent device check with normal functioning and within parameters on 06/01 5. Hypertension; controlled 6. Sepsis/Bacteremia/Pneumonia: BC shows G+, ID following. remains afebrile 7. ASHLEY on CKD3: presently Cr at 3.2. Nephrology following 8. DM2/HLP 9. Anemia of chronic disease 10. IV contrast allergy Recommendations 1. Heparin. LHC tomorrow and prepped with steroids/H1/H2 negrito for IV contrast allergy. 2. Continue with current regimen. LHC was discussed with her 2 days ago and agreeable after risks and benefits explained. 3. ASA. Continue to hold entresto for now. Potential HD after LHC. LAUREL MENDOZA MD 06/08/17 1714: CARDIO Progress Notes Assessment Assessment Patient seen and examined. Agree with FUEL AGENT's assessment and plan. Telemetry did not show any significant arrhythmias. Plan for cardiac catheterization and possible angioplasty tomorrow. HARSHIL KEMP APRN Jun 08, 2017 15:52 LAUREL MENDOZA MD Jun 08, 2017 17:14
[2017-06-08] MEDS: predniSONE 10 MG TABLET PO SCH ×2 (16:45→21:39)
[2017-06-08] MEDS: HEPARIN 25,000UTS/500ML PREMIX 500 ML IV PRN (16:49)
[2017-06-08 18:11] LABS: TOTAL SERUM CREATININE 2.35 mg/dL (0.57-1.00); TOTAL URINE CREATININE 101.8 mg/dL (Not Estab.)
[2017-06-08 20:34] VITALS: BP 134/63
[2017-06-08] MEDS ORDERED: cefTRIAXone SODIUM 2 GM in IV DEXTROSE 5% 100 ML IV SCH (21:00)
[2017-06-08] MEDS: HYDROcodone/APAP 5/325MG 1 TAB TABLET PO PRN (21:47)
[2017-06-08] MEDS: IV NORMAL SALINE 1000ML BAG 1,000 ML IV SCH (21:47)
[2017-06-08] MEDS: INSULIN DETEMIR 300 UNITS/3 ML INSULN.PEN. SQ SCH (21:53)
--- NOTE | 2017-06-08 23:06 | CONS ---
DATE OF CONSULTATION: 06/08/2017 REQUESTING PHYSICIAN: Dr. Jennifer Valencia. REASON FOR CONSULTATION: Thrombocytopenia. HISTORY OF PRESENT ILLNESS: The patient is a 61-year-old female who was admitted to [facility] with complaints of cough productive of yellow sputum, nausea, vomiting, generalized weakness. She had a temperature of 103 degrees in the Emergency Room. She was admitted on 06/05/2017 for sepsis. Infectious Disease was consulted and she was started on IV antibiotics. She also has a history of congestive heart failure, hypertension, nonischemic cardiomyopathy, defibrillator. She did not have any abdominal pain or diarrhea. She was noted to have thrombocytopenia with a platelet count of 127,000 on 06/05/2017 and the platelets dropped to 85,000 on 06/07/2017 and hence I was consulted for further evaluation of thrombocytopenia. Her reticulocyte count is normal at 0.9 on 06/06/2017 and her creatinine is 3.2. Serum protein electrophoresis did not reveal any M-spike. She does not have any prior history of thrombocytopenia. She denies nosebleeds or gum bleeding. No hematemesis, melena, hematochezia, no hemoptysis or hematuria. PAST MEDICAL HISTORY: Nonischemic cardiomyopathy with defibrillator placement, congestive heart failure, hypertension, osteoporosis, B12 deficiency, anemia, diabetes, and hyperlipidemia. SOCIAL HISTORY: No smoking or alcohol abuse. FAMILY HISTORY: Positive for breast cancer in her sister. REVIEW OF SYSTEMS: A 12-point review of system was performed. Pertinent positives are mentioned in the history of present illness. Rest of the system review is negative. PHYSICAL EXAMINATION: GENERAL APPEARANCE: The patient is a 61-year-old female who is in no acute cardiorespiratory distress. VITAL SIGNS: Blood pressure is 93/54, temperature 98.8. HEENT: Atraumatic, normocephalic. Eyes: No icterus. NECK: Supple. CHEST: Bilaterally symmetrical. No crepitations or rhonchi heard. HEART: S1, S2 normal. ABDOMEN: Soft, nontender. CENTRAL NERVOUS SYSTEM: No focal deficits. LYMPHATICS: No lymphadenopathy. SKIN: No rashes. PSYCHOLOGIC: Mood and affect are appropriate. LABORATORY DATA: From 06/07/2017, WBC 14.6, hemoglobin 8.5, platelet count 85. Reticulocyte count 0.9. Creatinine is 3.2 on 06/08/2017, ferritin 1682, iron 12, TIBC 187, iron saturation 6%, serum protein electrophoresis does not reveal any evidence of M-spike. IMPRESSION AND PLAN: 1. Thrombocytopenia. This is a reactive thrombocytopenia due to underlying sepsis. No clinical evidence of thrombotic thrombocytopenic purpura or disseminated intravascular coagulation. Reticulocyte count is normal. I will continue to monitor closely. No signs of bleeding. I discussed in detail with the patient. I also discussed with the registered nurse. 2. Anemia, normochromic, normocytic. Iron studies are suggestive of anemia due to chronic disease. I will obtain B12 and folic acid levels. 3. Renal failure. 4. Sepsis. Appreciate management by Infectious Diseases. SEGUNDO CABRAL MD DR: SEAN/nts JOB#: [id number] / [id number] YOHANA
[2017-06-08 23:54] VITALS: BP 97/53
[2017-06-09] VITALS (8 sets, daily range): BP systolic 106–147; BP diastolic 58–87
[2017-06-09] MEDS: predniSONE 10 MG TABLET PO SCH (06:27)
[2017-06-09] MEDS ORDERED: diphenhydrAMINE HCL 25 MG CAPSULE PO ONE (07:00)
[2017-06-09] MEDS ORDERED: FAMOTIDINE 20 MG TABLET. PO ONE (07:00)
[2017-06-09 07:03] LABS: BASO % 0 % (0-3); EOS % 0 % (0-3); HEMATOCRIT 28.1 % (36.0-47.0); HEMOGLOBIN 9.1 g/dL (12.0-15.5); LYMPH # 0.7 x10^3/uL (1.0-4.8); LYMPH % 6 % (24-48); MEAN CORPUSCULAR HEMOGLOBIN 27 pg (25-35); MEAN CORPUSCULAR HGB CONC 32 g/dL (31-37); MEAN CORPUSCULAR VOLUME 82 fL (79-100); MONO % 4 % (0-9); NEUT % 90 % (31-73); PLATELET COUNT 114 x10^3/uL (140-400); RED BLOOD COUNT 3.42 x10^6/uL (3.50-5.40); RED CELL DISTRIBUTION WIDTH 18.2 % (11.5-14.5); WHITE BLOOD COUNT 10.5 x10^3/uL (4.0-11.0)
[2017-06-09] MEDS: INSULIN ASPART 300 UNITS/3 ML INSULN.PEN SQ SCH ×3 (08:00→17:00)
[2017-06-09] MEDS ORDERED: diphenhydrAMINE 50 MG/ML VIAL IVP ONE (08:00)
[2017-06-09] MEDS: FERROUS SULFATE 325 MG TABLET. PO SCH (08:00)
[2017-06-09] MEDS ORDERED: methylPREDNISolone SOD SUCC PF 125 MG/2 ML VIAL. IV ONE ×2 (08:00→14:30)
[2017-06-09] MEDS ORDERED: ACETAMINOPHEN 325 MG TABLET. PO ONE (08:00)
[2017-06-09] MEDS ORDERED: HEPARIN for IV BOLUS 10,000 UNIT/10 ML VIAL. ONE (08:16)
[2017-06-09] MEDS ORDERED: LIDOCAINE WITH 8.4% SOD BICARB 3 ML DISP.SYRIN. IJ ONE ×2 (08:16→09:30)
[2017-06-09] MEDS: LACTOBACILLUS RHAMNOSUS GG 1 CAPSULE. PO SCH ×2 (08:44→20:53)
[2017-06-09] MEDS: DOCUSATE SODIUM 100 MG CAPSULE. PO SCH (08:44)
[2017-06-09] MEDS: BENZONATATE 100 MG CAPSULE. PO SCH ×3 (08:46→20:53)
[2017-06-09] MEDS: cefTRIAXone IV Push 2 GM VIAL. IVP SCH ×2 (08:46→20:55)
[2017-06-09] MEDS: ASPIRIN ENTERIC COATED 81 MG TABLET.DR. PO SCH (08:46)
[2017-06-09] MEDS: guaiFENesin DM 200MG/20MG 10 ML SYRUP PO SCH ×4 (08:46→20:54)
[2017-06-09] MEDS: ACETYLCYSTEINE 20% ORAL SOLN 600 MG/3 ML SYRINGE. PO SCH ×3 (08:47→20:55)
[2017-06-09] MEDS: METOPROLOL TART IMMED RELEASE 25 MG TABLET. PO SCH ×2 (08:47→20:53)
[2017-06-09] MEDS: CAPSAICIN 0.025% TOPICAL CREAM 60GM TUBE. TP SCH ×3 (08:48→21:00)
[2017-06-09 09:00] LABS: FOLATE 7.53 ng/ml (3.2-20.0)
[2017-06-09 09:01] LABS: ALBUMIN 2.3 g/dL (3.4-5.0); CALCIUM 8.8 mg/dL (8.5-10.1); CREATININE 3.2 mg/dL (0.6-1.0); GFR 17.9; PHOSPHORUS 4.4 mg/dL (2.6-4.7); POTASSIUM 4.4 mmol/L (3.5-5.1)
--- NOTE | 2017-06-09 09:57 | PDOC ---
Infectious Disease Note Subjective Subjective pt is feeling tired,underwent HD cath placement no n/v/d/abdo pain/chestpain. apetite is low Has some sob and cough no new jt pain shoulder pain rt is improving ROS ROS as above Vital Sign Vital Signs Vital Signs Date Time Temp Pulse Resp B/P (MAP) Pulse Ox O2 Delivery O2 Flow Rate FiO2 06/09/17 08:47 79 115/59 06/09/17 03:45 98.1 22 94 Room Air 98.1 06/08/17 22:47 2.0 Physical Exam PHYSICAL EXAM GENERAL: tiered appearing female in nad Alert ,awake HEENT: PERRL, OC/OP NECK: Supple temp HD cath in place LUNGS dec bs at bases HEART: S1S2, ABD: Soft, NT, no organomegaly, no rebound EXT: No edema, no cyanosis 911 TELECOMMUNICATOR: Alert, oriented x 3, no focal neurologic deficit SKIN: No gen rash MSK: Rt shoulder no effusion, no other jt effusion,erythema noted PIV: ok Labs Lab Laboratory Tests Test 06/08/17 12:20 06/08/17 14:25 06/08/17 16:44 06/08/17 21:40 Glucose (Fingerstick) 178 mg/dL (70-99) 145 mg/dL (70-99) Heparin Anti-Xa Act, Unfractionated 0.35 IU/mL (0.30-0.70) 0.22 IU/mL (0.30-0.70) Test 06/08/17 21:49 06/09/17 06:30 06/09/17 07:52 Glucose (Fingerstick) 235 mg/dL (70-99) 204 mg/dL (70-99) White Blood Count 10.5 x10^3/uL (4.0-11.0) Red Blood Count 3.42 x10^6/uL (3.50-5.40) Hemoglobin 9.1 g/dL (12.0-15.5) Hematocrit 28.1 % (36.0-47.0) Mean Corpuscular Volume 82 fL (79-100) Mean Corpuscular Hemoglobin 27 pg (25-35) Mean Corpuscular Hemoglobin Concent 32 g/dL (31-37) Red Cell Distribution Width 18.2 % (11.5-14.5) Platelet Count 114 x10^3/uL (140-400) Neutrophils (%) (Auto) 90 % (31-73) Lymphocytes (%) (Auto) 6 % (24-48) Monocytes (%) (Auto) 4 % (0-9) Eosinophils (%) (Auto) 0 % (0-3) Basophils (%) (Auto) 0 % (0-3) Neutrophils # (Auto) 9.4 x10^3uL (1.8-7.7) Lymphocytes # (Auto) 0.7 x10^3/uL (1.0-4.8) Monocytes # (Auto) 0.4 x10^3/uL (0.0-1.1) Eosinophils # (Auto) 0.0 x10^3/uL (0.0-0.7) Basophils # (Auto) 0.0 x10^3/uL (0.0-0.2) Heparin Anti-Xa Act, Unfractionated 0.29 IU/mL (0.30-0.70) Sodium Level 132 mmol/L (136-145) Potassium Level 4.4 mmol/L (3.5-5.1) Chloride Level 99 mmol/L (98-107) Carbon Dioxide Level 21 mmol/L (21-32) Anion Gap 12 (6-14) Blood Urea Nitrogen 64 mg/dL (7-20) Creatinine 3.2 mg/dL (0.6-1.0) Estimated GFR (Cockcroft-Gault) 17.9 Glucose Level 218 mg/dL (70-99) Calcium Level 8.8 mg/dL (8.5-10.1) Phosphorus Level 4.4 mg/dL (2.6-4.7) Magnesium Level 2.1 mg/dL (1.8-2.4) Albumin 2.3 g/dL (3.4-5.0) Vitamin B12 Level 1751 pg/mL (247-911) Serum Folate 7.53 ng/ml (3.2-20.0) Micro BC strep pneumonia repeat bc neg sputum reviewed Objective Assessment Strep pneumoniae bacteremia source likely lung NSTEMI,CM awaiting [facility] today ASHLEY /ATN Rt temp HD cath Nausea and vomiting resolved Anemia, Paraproteinemia Rt Shoulder pain Plan Plan of Care Continue ceftriaxone 2gm IV q12 f/u c/s and labs cont supportive care XANDER LOMBARDI MD Jun 09, 2017 09:56
--- NOTE | 2017-06-09 10:11 | PDOC ---
PROGRESS NOTES Chief Complaint Chief Complaint Severe cardiomyopathy with EF 20%, severe global hypokinesis Possible sepsis, septic shock requiring pressors Cough, fevers, tachycardia, AK I on CK D, elevated lactate, elevated BNP, anemia of chronic disease, Overweight BMI 29.5 Gram positive bacteremia (GPC in chains, likely strep) Diabetes type 2, Pacemaker/AICD in situ N STEMI, dyslipidemia Right shoulder pain, musculoskeletal OLiguric RF Thrombocytopenia, multifactorial, sepsis, heparin gtt History of Present Illness History of Present Illness Transferred out of ICU 06/08/17. Was in ICU since admission because of severe cardiomyopathy with an EF less than 20%, and NSTEMI based on cardiac enzymes, is on heparin drip, and pressor for 1-2 days. Yesterday had worsening AK I on CKD, and thrombocytopenia 80s hence I had involved heme all, in the background of heparin drip, and sepsis. Being treated also for pneumonia in this patient with lots of comorbidities. Essentially lots of comorbidities with overall prognosis is poor. She has minimal daily function in life because of her medical issues. Currently undergoing LHC by cardiology Plans: Await LHC results, follow cardiology recommendations Heme onc haS BEEN consulted yesterday because of the drop in platelets in the background of sepsis and heparin drip Follow renal recommendations, avoid nephrotoxins So far blood sugars are okay CReat is 3.2 from 2.3. Had some dye allergy hence I have premedicated with Benadryl Tylenol and Solu- Medrol 20 minutes prior to cardiac cath Overall prognosis of this patient is rather poor and guarded. Low EF 20%, DM 2, uncontrolled with elevated hemoglobin A1c few months ago, and now kidney problems. Vitals Vitals Vital Signs Date Time Temp Pulse Resp B/P (MAP) Pulse Ox O2 Delivery O2 Flow Rate FiO2 06/09/17 08:47 79 115/59 06/09/17 03:45 98.1 22 94 Room Air 98.1 06/08/17 22:47 2.0 Physical Exam General: Alert, Oriented X3, Cooperative, No acute distress Heart: Regular rate (Paced), Other (3/6/systolic murmur to LLS border) Lungs: Clear, Other Abdomen: Soft Extremities: No cyanosis, No edema Skin: No breakdown, No significant lesion Labs LABS Laboratory Tests Test 06/08/17 12:20 06/08/17 14:25 06/08/17 16:44 06/08/17 21:40 Glucose (Fingerstick) 178 mg/dL (70-99) 145 mg/dL (70-99) Heparin Anti-Xa Act, Unfractionated 0.35 IU/mL (0.30-0.70) 0.22 IU/mL (0.30-0.70) Test 06/08/17 21:49 06/09/17 06:30 06/09/17 07:52 Glucose (Fingerstick) 235 mg/dL (70-99) 204 mg/dL (70-99) White Blood Count 10.5 x10^3/uL (4.0-11.0) Red Blood Count 3.42 x10^6/uL (3.50-5.40) Hemoglobin 9.1 g/dL (12.0-15.5) Hematocrit 28.1 % (36.0-47.0) Mean Corpuscular Volume 82 fL (79-100) Mean Corpuscular Hemoglobin 27 pg (25-35) Mean Corpuscular Hemoglobin Concent 32 g/dL (31-37) Red Cell Distribution Width 18.2 % (11.5-14.5) Platelet Count 114 x10^3/uL (140-400) Neutrophils (%) (Auto) 90 % (31-73) Lymphocytes (%) (Auto) 6 % (24-48) Monocytes (%) (Auto) 4 % (0-9) Eosinophils (%) (Auto) 0 % (0-3) Basophils (%) (Auto) 0 % (0-3) Neutrophils # (Auto) 9.4 x10^3uL (1.8-7.7) Lymphocytes # (Auto) 0.7 x10^3/uL (1.0-4.8) Monocytes # (Auto) 0.4 x10^3/uL (0.0-1.1) Eosinophils # (Auto) 0.0 x10^3/uL (0.0-0.7) Basophils # (Auto) 0.0 x10^3/uL (0.0-0.2) Heparin Anti-Xa Act, Unfractionated 0.29 IU/mL (0.30-0.70) Sodium Level 132 mmol/L (136-145) Potassium Level 4.4 mmol/L (3.5-5.1) Chloride Level 99 mmol/L (98-107) Carbon Dioxide Level 21 mmol/L (21-32) Anion Gap 12 (6-14) Blood Urea Nitrogen 64 mg/dL (7-20) Creatinine 3.2 mg/dL (0.6-1.0) Estimated GFR (Cockcroft-Gault) 17.9 Glucose Level 218 mg/dL (70-99) Calcium Level 8.8 mg/dL (8.5-10.1) Phosphorus Level 4.4 mg/dL (2.6-4.7) Magnesium Level 2.1 mg/dL (1.8-2.4) Albumin 2.3 g/dL (3.4-5.0) Vitamin B12 Level 1751 pg/mL (247-911) Serum Folate 7.53 ng/ml (3.2-20.0) Review of Systems Review of Systems Out having [facility] Assessment and Plan Assessmemt and Plan Problems Medical Problems: (1) Congestive heart disease Status: Acute (2) Elevated troponin Status: Acute (3) Pneumonia Status: Acute (4) Sepsis Status: Acute Problems: Comment Review of Relevant I have reviewed the following items bro (where applicable) has been applied. Labs Laboratory Tests Test 06/07/17 17:45 06/07/17 21:14 06/08/17 06:30 06/08/17 12:20 Urine Protein 26.5 mg/dL (Not Estab.) Urine Creatinine 24 Hour 433 mg/24 hr (800-1800) Creatinine Clearance 24 Hour 13 mL/min (88-128) Urine Protein 24 Hr Calculated 113 mg/24 hr (30-150) Creatinine 2.35 mg/dL (0.57-1.00) 3.2 mg/dL (0.6-1.0) Estimated GFR (Non- 22 (>59) EGFR 25 (>59) Glucose (Fingerstick) 167 mg/dL (70-99) 178 mg/dL (70-99) Heparin Anti-Xa Act, Unfractionated 0.26 IU/mL (0.30-0.70) Sodium Level 136 mmol/L (136-145) Potassium Level 4.2 mmol/L (3.5-5.1) Chloride Level 101 mmol/L (98-107) Carbon Dioxide Level 25 mmol/L (21-32) Anion Gap 10 (6-14) Blood Urea Nitrogen 59 mg/dL (7-20) Estimated GFR (Cockcroft-Gault) 17.9 Glucose Level 174 mg/dL (70-99) Calcium Level 8.4 mg/dL (8.5-10.1) Phosphorus Level 3.8 mg/dL (2.6-4.7) Magnesium Level 2.1 mg/dL (1.8-2.4) Albumin 2.3 g/dL (3.4-5.0) Test 06/08/17 14:25 06/08/17 16:44 06/08/17 21:40 06/08/17 21:49 Heparin Anti-Xa Act, Unfractionated 0.35 IU/mL (0.30-0.70) 0.22 IU/mL (0.30-0.70) Glucose (Fingerstick) 145 mg/dL (70-99) 235 mg/dL (70-99) Test 06/09/17 06:30 06/09/17 07:52 White Blood Count 10.5 x10^3/uL (4.0-11.0) Red Blood Count 3.42 x10^6/uL (3.50-5.40) Hemoglobin 9.1 g/dL (12.0-15.5) Hematocrit 28.1 % (36.0-47.0) Mean Corpuscular Volume 82 fL (79-100) Mean Corpuscular Hemoglobin 27 pg (25-35) Mean Corpuscular Hemoglobin Concent 32 g/dL (31-37) Red Cell Distribution Width 18.2 % (11.5-14.5) Platelet Count 114 x10^3/uL (140-400) Neutrophils (%) (Auto) 90 % (31-73) Lymphocytes (%) (Auto) 6 % (24-48) Monocytes (%) (Auto) 4 % (0-9) Eosinophils (%) (Auto) 0 % (0-3) Basophils (%) (Auto) 0 % (0-3) Neutrophils # (Auto) 9.4 x10^3uL (1.8-7.7) Lymphocytes # (Auto) 0.7 x10^3/uL (1.0-4.8) Monocytes # (Auto) 0.4 x10^3/uL (0.0-1.1) Eosinophils # (Auto) 0.0 x10^3/uL (0.0-0.7) Basophils # (Auto) 0.0 x10^3/uL (0.0-0.2) Heparin Anti-Xa Act, Unfractionated 0.29 IU/mL (0.30-0.70) Sodium Level 132 mmol/L (136-145) Potassium Level 4.4 mmol/L (3.5-5.1) Chloride Level 99 mmol/L (98-107) Carbon Dioxide Level 21 mmol/L (21-32) Anion Gap 12 (6-14) Blood Urea Nitrogen 64 mg/dL (7-20) Creatinine 3.2 mg/dL (0.6-1.0) Estimated GFR (Cockcroft-Gault) 17.9 Glucose Level 218 mg/dL (70-99) Calcium Level 8.8 mg/dL (8.5-10.1) Phosphorus Level 4.4 mg/dL (2.6-4.7) Magnesium Level 2.1 mg/dL (1.8-2.4) Albumin 2.3 g/dL (3.4-5.0) Vitamin B12 Level 1751 pg/mL (247-911) Serum Folate 7.53 ng/ml (3.2-20.0) Glucose (Fingerstick) 204 mg/dL (70-99) Laboratory Tests Test 06/08/17 12:20 06/08/17 14:25 06/08/17 16:44 06/08/17 21:40 Glucose (Fingerstick) 178 mg/dL (70-99) 145 mg/dL (70-99) Heparin Anti-Xa Act, Unfractionated 0.35 IU/mL (0.30-0.70) 0.22 IU/mL (0.30-0.70) Test 06/08/17 21:49 06/09/17 06:30 06/09/17 07:52 Glucose (Fingerstick) 235 mg/dL (70-99) 204 mg/dL (70-99) White Blood Count 10.5 x10^3/uL (4.0-11.0) Red Blood Count 3.42 x10^6/uL (3.50-5.40) Hemoglobin 9.1 g/dL (12.0-15.5) Hematocrit 28.1 % (36.0-47.0) Mean Corpuscular Volume 82 fL (79-100) Mean Corpuscular Hemoglobin 27 pg (25-35) Mean Corpuscular Hemoglobin Concent 32 g/dL (31-37) Red Cell Distribution Width 18.2 % (11.5-14.5) Platelet Count 114 x10^3/uL (140-400) Neutrophils (%) (Auto) 90 % (31-73) Lymphocytes (%) (Auto) 6 % (24-48) Monocytes (%) (Auto) 4 % (0-9) Eosinophils (%) (Auto) 0 % (0-3) Basophils (%) (Auto) 0 % (0-3) Neutrophils # (Auto) 9.4 x10^3uL (1.8-7.7) Lymphocytes # (Auto) 0.7 x10^3/uL (1.0-4.8) Monocytes # (Auto) 0.4 x10^3/uL (0.0-1.1) Eosinophils # (Auto) 0.0 x10^3/uL (0.0-0.7) Basophils # (Auto) 0.0 x10^3/uL (0.0-0.2) Heparin Anti-Xa Act, Unfractionated 0.29 IU/mL (0.30-0.70) Sodium Level 132 mmol/L (136-145) Potassium Level 4.4 mmol/L (3.5-5.1) Chloride Level 99 mmol/L (98-107) Carbon Dioxide Level 21 mmol/L (21-32) Anion Gap 12 (6-14) Blood Urea Nitrogen 64 mg/dL (7-20) Creatinine 3.2 mg/dL (0.6-1.0) Estimated GFR (Cockcroft-Gault) 17.9 Glucose Level 218 mg/dL (70-99) Calcium Level 8.8 mg/dL (8.5-10.1) Phosphorus Level 4.4 mg/dL (2.6-4.7) Magnesium Level 2.1 mg/dL (1.8-2.4) Albumin 2.3 g/dL (3.4-5.0) Vitamin B12 Level 1751 pg/mL (247-911) Serum Folate 7.53 ng/ml (3.2-20.0) Microbiology 06/06/17 Blood Culture - Preliminary, Resulted NO GROWTH AFTER 3 DAYS 06/07/17 - Final, Resulted 06/07/17 - Final, Resulted 06/07/17 - Final, Resulted 06/07/17 Gram Stain Evaluation - Final, Resulted 06/07/17 Sputum Culture - Preliminary, Resulted 06/07/17 Sputum Result 1 - Final, Resulted 06/06/17 Urine Culture - Final, Complete 06/06/17 Urine Culture Result 1 (TANJA) - Final, Complete Medications Current Medications Ondansetron HCl (Zofran) 8 mg 1X ONCE IV Last administered on 06/05/17 18:36 ; Start 06/05/17 at 18:30; Stop 06/05/17 at 18:31; Status DC Aspirin (Children'S Aspirin) 324 mg 1X ONCE PO Last administered on 19:48; Start 06/05/17 at 19:45; Stop 06/05/17 at 19:46; Status DC Sodium Chloride 1,000 ml @ 1,000 mls/hr 1X ONCE IV Last administered on 06/05 20:12; Start 06/05/17 at 20:00; Stop 06/05/17 at 20:59; Status DC Cefepime HCl 2 gm/ Dextrose 100 ml @ 200 mls/hr 1X ONCE IV ; Start 06/05/17 at 20:00; Stop 06/05/17 at 20:04; Status DC Cefepime HCl (Maxipime) 2 gm Q12HR IVP Last administered on 06/08/17 09:02; Start 06/05/17 at 21:00; Stop 06/08/17 at 09:21; Status DC Ondansetron HCl (Zofran) 4 mg PRN Q8HRS PRN IV NAUSEA/VOMITING; Start at 20:15; Stop 06/06/17 at 08:52; Status DC Sodium Chloride 1,000 ml @ 75 mls/hr [id number] IV Last administered on 10:30; Start 06/05/17 at 20:06; Stop 06/06/17 at 20:05; Status DC Albuterol/ Ipratropium (Duoneb) 3 ml RTQID NEB ; Start 06/06/17 at 08:00; Stop 06/07/17 at 07:59; Status DC Acetaminophen (Tylenol) 650 mg PRN Q6HRS PRN PO fever Last administered on 16:33; Start 06/05/17 at 20:15 Vancomycin HCl (Vanco Per Pharmacy) 1 each PRN DAILY PRN MC SEE COMMENTS Last administered on 06/06/17 15:14; Start 06/05/17 at 20:15; Stop 06/07/17 at 09 :14; Status DC Acetaminophen (Tylenol) 1,000 mg 1X ONCE PO Last administered on 06/05/17 20 :17; Start 06/05/17 at 20:15; Stop 06/05/17 at 20:21; Status DC Vancomycin HCl 2 gm/Dextrose/ Sodium Chloride 500 ml @ 250 mls/hr 1X ONCE IV Last administered on 06/05/17 21:45; Start 06/05/17 at 21:00; Stop 06/05/17 at 22:59; Status DC Vancomycin HCl 1.25 gm/Sodium Chloride 250 ml @ 167 mls/hr Q24H IV ; Start at 22:00; Stop 06/06/17 at 22:00; Status DC Vancomycin HCl 1 each 1X ONCE MC ; Start 06/07/17 at 20:00; Stop 06/07/17 at 20:00; Status DC Norepinephrine Bitartrate 250 ml @ 0 mls/hr CONT PRN IV SEE I/O RECORD Last administered on 06/05/17 23:13; Start 06/05/17 at 22:45 Magnesium Sulfate/ Dextrose 50 ml @ 25 mls/hr PRN DAILY PRN IV for Mag < 1.7 on am labs Last administered on 06/06/17 12:40; Start 06/06/17 at 08:30 Ondansetron HCl (Zofran) 4 mg PRN Q6HRS PRN IV NAUSEA/VOMITING; Start at 09:00; Stop 06/07/17 at 08:59; Status DC Guaifenesin (Robitussin Dm) 10 ml QID PO Last administered on 06/09/17 08:46 ; Start 06/06/17 at 09:00 Heparin Sodium (Porcine) (Heparin Sodium) 4,000 unit 1X ONCE IV Last administered on 06/06/17 10:19; Start 06/06/17 at 09:15; Stop 06/06/17 at 09 :21; Status DC Heparin Sodium/ Dextrose 500 ml @ 0 mls/hr CONT PRN IV SEE I/O RECORD Last administered on 06/08/17 16:49; Start 06/06/17 at 09:15 Heparin Sodium (Porcine) (Heparin Sodium) 2,000 unit PRN Q6HRS PRN IV FOR UFH LEVEL LESS THAN 0.2; Start 06/06/17 at 09:15 Furosemide (Lasix) 40 mg 1X ONCE IVP Last administered on 06/06/17 10:09; Start 06/06/17 at 10:00; Stop 06/06/17 at 10:01; Status DC Aspirin (Ecotrin) 81 mg DAILYWBKFT PO Last administered on 06/09/17 08:46; Start 06/07/17 at 08:00 Lactobacillus Rhamnosus (Culturelle) 1 cap BID PO Last administered on 21:39; Start 06/06/17 at 21:00 Acetaminophen/ Hydrocodone Bitart (Lortab 5/325) 1 tab PRN Q6HRS PRN PO PAIN Last administered on 06/08/17 21:47; Start 06/06/17 at 20:30 Capsaicin (Zostrix) 1 nelson TID TP Last administered on 06/09/17 08:48; Start 06/06/17 at 21:00 Benzonatate (Tessalon Perle) 100 mg TID PO Last administered on 06/09/17 08: 46; Start 06/07/17 at 04:00 Magnesium Sulfate/ Dextrose 50 ml @ 25 mls/hr 1X ONCE IV Last administered on 06/07/17 08:55; Start 06/07/17 at 09:00; Stop 06/07/17 at 10:59; Status DC Docusate Sodium (Colace) 100 mg DAILY PO Last administered on 06/08/17 09:01 ; Start 06/07/17 at 10:30 Metoprolol Tartrate (Lopressor) 12.5 mg BID PO Last administered on 06/09/17 08:47; Start 06/07/17 at 13:30 Info (Anti-Coagulation Monitoring By Pharmacy) 1 each PRN DAILY PRN MC SEE COMMENTS Last administered on 06/08/17 14:20; Start 06/08/17 at 08:00 Ondansetron HCl (Zofran) 4 mg PRN Q6HRS PRN IV NAUSEA/VOMITING 1ST CHOICE; Start 06/08/17 at 09:00 Ceftriaxone Sodium 2 gm/ Dextrose 100 ml @ 200 mls/hr Q12HR IV ; Start at 21:00; Status UNV Levofloxacin (Levaquin) 250 mg 1X ONCE PO ; Start 06/08/17 at 09:30; Stop at 09:30; Status DC Ceftriaxone Sodium (Rocephin) 2 gm Q12HR IVP Last administered on 06/09/17 08 :46; Start 06/08/17 at 10:00 Insulin Detemir (Levemir) 10 units QHS SQ Last administered on 06/08/17 21:53 ; Start 06/08/17 at 21:00 Insulin Aspart (NovoLOG) 0-9 UNITS TIDWMEALS SQ Last administered on 13:08; Start 06/08/17 at 12:00 Dextrose (Dextrose 50%-Water Syringe) 12.5 gm PRN Q15MIN PRN IV SEE COMMENTS; Start 06/08/17 at 09:45 Ferrous Sulfate (Feosol) 325 mg DAILYWBKFT PO Last administered on 06/08/17 10:32; Start 06/08/17 at 11:30 Prednisone (Prednisone) 50 mg TID@0700,1500,2300 PO Last administered on 06:27; Start 06/08/17 at 15:00; Stop 06/09/17 at 07:01; Status DC Diphenhydramine HCl (Benadryl) 50 mg 1X ONCE PO ; Start 06/09/17 at 07:00; Stop 06/09/17 at 07:01; Status DC Famotidine (Pepcid) 20 mg 1X ONCE PO ; Start 06/09/17 at 07:00; Stop at 07:01; Status DC Sodium Chloride 1,000 ml @ 60 mls/hr [id number] IV Last administered on 21:47; Start 06/08/17 at 20:00 Methylprednisolone Sodium Succinate (SOLU-Medrol 125MG VIAL) 125 mg 1X ONCE IV ; Start 06/09/17 at 08:00; Stop 06/09/17 at 08:01; Status DC Diphenhydramine HCl (Benadryl) 50 mg 1X ONCE IVP ; Start 06/09/17 at 08:00; Stop 06/09/17 at 08:01; Status DC Acetylcysteine (Mucomyst 20% Oral Solution) 600 mg BID PO Last administered on 06/09/17 08:47; Start 06/09/17 at 08:00; Stop 06/11/17 at 07:59 Acetaminophen (Tylenol) 650 mg 1X ONCE PO ; Start 06/09/17 at 08:00; Stop at 08:01; Status DC Lidocaine/Sodium Bicarbonate (Buffered Lidocaine 1%) 3 ml STK-MED ONCE IJ ; Start 06/09/17 at 08:16; Stop 06/09/17 at 08:17; Status DC Heparin Sodium (Porcine) (Heparin Sodium) 10,000 unit STK-MED ONCE .ROUTE ; Start 06/09/17 at 08:16; Stop 06/09/17 at 08:17; Status DC Lidocaine/Sodium Bicarbonate (Buffered Lidocaine 1%) 6 ml 1X ONCE IJ Last administered on 06/09/17 09:25; Start 06/09/17 at 09:30; Stop 06/09/17 at 09 :31; Status DC Heparin Sodium (Porcine) (Heparin Sodium) 2,500 unit 1X ONCE INT CAT Last administered on 06/09/17 09:25; Start 06/09/17 at 09:30; Stop 06/09/17 at 09 :31; Status DC Active Scripts Active Cyclobenzaprine Hcl 10 Mg Tablet 1 Tab PO QHS Reported Coreg (Carvedilol) 6.25 Mg Tablet 1.5 Tab PO BID Entresto 49 mg-51 mg Tablet (Sacubitril/Valsartan) 1 Each Tablet 1 Each PO BID Atorvastatin Calcium 40 Mg Tablet 40 Mg PO HS Miralax (Polyethylene Glycol 3350) 17 Gm Powd.pack 1 Packet PO PRN DAILY PRN Colace (Docusate Sodium) 100 Mg Capsule 1 Cap PO DAILY Furosemide 20 Mg Tablet 40 Mg PO DAILY Gabapentin 300 Mg Capsule 600 Mg PO PRN TID PRN Vitamin B-12 (Cyanocobalamin (Vitamin B-12)) 1,000 Mcg Tablet 500 Mcg PO DAILY Lantus Solostar (Insulin Glargine,Hum.rec.anlog) 100 Unit/1 Ml Insuln.pen 25 Unit SQ QHS Novolog (Insulin Aspart) 100 Unit/1 Ml Cartridge 3 Unit SQ TIDAC Aspirin 81 Mg Tab.chew 81 Mg PO DAILY Metformin Hcl 500 Mg Tablet 1,000 Mg PO BID Vitals/I & O Vital Sign - Last 24 Hours 06/08/17 06/08/17 06/08/17 06/08/17 12:00 15:00 20:30 20:34 Temp 98.8 98.8 98.6 98.8 98.8 98.6 Pulse 79 82 93 Resp 18 18 20 B/P (MAP) 93/54 (67) 99/54 (69) 134/63 (86) Pulse Ox 98 98 94 O2 Delivery Nasal Cannula Nasal Cannula Nasal Cannula Nasal Cannula O2 Flow Rate 2.0 2.0 2.0 2.0 06/08/17 06/08/17 06/08/17 06/08/17 21:40 21:47 22:47 23:54 Temp 98.0 98.0 Pulse 93 82 Resp 20 20 19 B/P (MAP) 134/63 97/53 (68) Pulse Ox 96 O2 Delivery Nasal Cannula Nasal Cannula Room Air O2 Flow Rate 2.0 2.0 06/09/17 06/09/17 03:45 08:47 Temp 98.1 98.1 Pulse 79 79 Resp 22 B/P (MAP) 115/59 (77) 115/59 Pulse Ox 94 O2 Delivery Room Air Intake and Output 06/08/17 06/08/17 06/09/17 15:00 23:00 07:00 Intake Total 60 ml 531 ml Output Total 150 ml Balance -90 ml 531 ml Nutrition Consultation Dietary Evaluation: Recommendations by RD: Increase Calorie Intake Comments: REC Cardiac/ADA diet Expected Outcomes/Goals: Diet advancement within 24 - 48 hrs - met, new goal established New goal: PO intake to meet > 75% est needs Interpretation of weight loss: >5% in 1 month Malnutrition Findings: Food and Nutrition Intake (Mod: <75% est energy req 7days Weight Status: Overweight BATOOL GRIGGS MD Jun 09, 2017 10:11
[2017-06-09] MEDS ORDERED: IODIXANOL 320 MG/ML 100 ML VIAL. ONE ×2 (14:36→15:24)
[2017-06-09] MEDS ORDERED: LIDOCAINE 2% 20 ML VIAL. ONE (14:37)
--- NOTE | 2017-06-09 14:50 | PDOC ---
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 CVS: min Orthopnea, no CP RESP: min subj SOB, no PHILLIPS GI: no Nausea, no Vomiting : no Dysuria, no Urgency OBJECTIVE Vital Signs Vital Signs Date Time Temp Pulse Resp B/P (MAP) Pulse Ox O2 Delivery O2 Flow Rate FiO2 06/09/17 10:50 97.8 80 19 114/61 (78) 96 Nasal Cannula 2.0 97.8 I & 0 Intake and Output 06/09/17 07:00 Intake Total 591 ml Output Total 150 ml Balance 441 ml Intake Oral 300 ml IV Total 291 ml Output Urine Total 150 ml PHYSICAL EXAM Physical Exam General Appearance: Awake Alert Oriented x 3 In no Distress; mild facial pallor Eyes: VIsion: Dec on Left - Almost blind on Rt; Conjunctiva Normal EN: No EN Drainage Mucous Memb. moist Neck: no JVD no JVP Supple no Thyromegaly CVS: S1 S2 + Murmur No Gallop No Rub no Edema Resp: rare RLL Rales no Rhonchi no Acc. Muscle use GI: BS +ve NO Bruit Non Tender Non Distended : no CVA tenderness; no Suprapubic Tenderness SKIN: no Rashes Breast Exam deferred Mu.Sk: Adequate ROM min Muscle Atrophy Heme: Unable to palpate Obvious LAD no palp Splenomegaly NEURO: Good Strength and Tone Cranial Nerves II - XII grossly intact; no asterixis Psych: ? Depressed no Active hallucination Assessment & Plan: ASHLEY - suspect heading to [facility]N now. Current FLuid and E-lyte status does not necessitate emergent need for Dialysis. Will re-evaluate for Dialysis in am - discussed proximity to same darrian if LHC is contemplated. I have discussed Temp HD Line placement and upcming need for HD (temp line pending clearing of infection). She may end up on HD hereafter if CMyopahty persists Oliguria - suspect Pre-Renal - ? Candidate for [place]. Cannot r/o ATN due to sepsis and cmyopahty - presumably as above - Anticipate need for HD soon; Anorexia - ? due to systemic infection vs Uremic prodrome; antiicpate need for HD soon CKD III - DM/ HTNsive / NS cannot be ruled out NSTEMI - gentle IVF pre-LHC darrian given dec in UO - ? need for Ionotropes Subj SOB - may need to hold IVF post cath if SOB persists. Anemia: ( fe def state noteD ) PO Iron, EPO as ordered in setting of NSTEMI + CKDIII Sys CHF with worsening of previously non-ischemic ? Cardiomyopathy -LHC today; Role for ionotropes; ECHO noted ? Sepsis : ? Pn source - appears to be improving. ^ed Protein gap - ? Paraprotienemia - await PEPS as ordered Discussed Plan of Care and prognosis etc. at length re HD with pt and RN at bedside COMMENT/RELEVANT DATA Meds Current Medications Medications (Trade) Dose Ordered Sig/Wilfrid Start Time Stop Time Status Last Admin Dose Admin Acetaminophen (Tylenol) 650 mg 1X ONCE 06/09/17 08:00 06/09/17 08:01 DC 06/09/17 14:35 650 MG Acetaminophen/ Hydrocodone Bitart (Lortab 5/325) 1 tab PRN Q6HRS PRN 06/06/17 20:30 06/08/17 21:47 1 TAB Acetylcysteine (Mucomyst 20% Oral Solution) 600 mg BID 06/09/17 08:00 06/11/17 07:59 06/09/17 08:47 600 MG Albuterol/ Ipratropium (Duoneb) 3 ml RTQID 06/06/17 08:00 06/07/17 07:59 DC Aspirin (Children'S Aspirin) 324 mg 1X ONCE 06/05/17 19:45 06/05/17 19:46 DC 06/05/17 19:48 324 MG Aspirin (Ecotrin) 81 mg DAILYWBKFT 06/07/17 08:00 06/09/17 08:46 81 MG Benzonatate (Tessalon Perle) 100 mg TID 06/07/17 04:00 06/09/17 08:46 100 MG Capsaicin (Zostrix) 1 nelson TID 06/06/17 21:00 06/09/17 08:48 1 NELSON Cefepime HCl (Maxipime) 2 gm Q12HR 06/05/17 21:00 06/08/17 09:21 DC 06/08/17 09:02 2 GM Cefepime HCl 2 gm/ Dextrose 100 ml @ 200 mls/hr 1X ONCE 06/05/17 20:00 06/05/17 20:04 DC Ceftriaxone Sodium 2 gm/ Dextrose 100 ml @ 200 mls/hr Q12HR 06/08/17 21:00 UNV Ceftriaxone Sodium (Rocephin) 2 gm Q12HR 06/08/17 10:00 06/09/17 08:46 2 GM Dextrose (Dextrose 50%-Water Syringe) 12.5 gm PRN Q15MIN PRN 06/08/17 09:45 Diphenhydramine HCl (Benadryl) 50 mg 1X ONCE 06/09/17 08:00 06/09/17 08:01 DC Docusate Sodium (Colace) 100 mg DAILY 06/07/17 10:30 06/08/17 09:01 100 MG Famotidine (Pepcid) 20 mg 1X ONCE 06/09/17 07:00 06/09/17 07:01 DC 06/09/17 14:35 20 MG Ferrous Sulfate (Feosol) 325 mg DAILYWBKFT 06/08/17 11:30 06/08/17 10:32 325 MG Furosemide (Lasix) 40 mg 1X ONCE 06/06/17 10:00 06/06/17 10:01 DC 06/06/17 10:09 40 MG Guaifenesin (Robitussin Dm) 10 ml QID 06/06/17 09:00 06/09/17 08:46 10 ML Heparin Sodium (Porcine) (Heparin Sodium) 2,500 unit 1X ONCE 06/09/17 09:30 06/09/17 09:31 DC 06/09/17 09:25 2,500 UNIT Heparin Sodium/ Dextrose 500 ml @ 0 mls/hr CONT PRN 06/06/17 09:15 06/08/17 16:49 20.9 MLS/HR Heparin Sodium/ Sodium Chloride 500 ml @ As Directed STK-MED ONCE 06/09/17 14:36 06/09/17 14:37 DC Info (Anti-Coagulation Monitoring By Pharmacy) 1 each PRN DAILY PRN 06/08/17 08:00 06/08/17 14:20 1 EACH Insulin Aspart (NovoLOG) 0-9 UNITS TIDWMEALS 06/08/17 12:00 06/08/17 13:08 4 UNITS Insulin Detemir (Levemir) 10 units QHS 06/08/17 21:00 06/08/17 21:53 10 UNITS Iodixanol (Visipaque 320) 100 ml STK-MED ONCE 06/09/17 14:36 06/09/17 14:37 DC Lactobacillus Rhamnosus (Culturelle) 1 cap BID 06/06/17 21:00 06/08/17 21:39 1 CAP Levofloxacin (Levaquin) 250 mg 1X ONCE 06/08/17 09:30 06/08/17 09:30 DC Lidocaine HCl 20 ml STK-MED ONCE 06/09/17 14:37 06/09/17 14:38 DC Lidocaine/Sodium Bicarbonate (Buffered Lidocaine 1%) 6 ml 1X ONCE 06/09/17 09:30 06/09/17 09:31 DC 06/09/17 09:25 6 ML Magnesium Sulfate/ Dextrose 50 ml @ 25 mls/hr 1X ONCE 06/07/17 09:00 06/07/17 10:59 DC 06/07/17 08:55 25 MLS/HR Methylprednisolone Sodium Succinate (SOLU-Medrol 125MG VIAL) 125 mg 1X ONCE 06/09/17 14:30 06/09/17 14:31 DC 06/09/17 14:36 125 MG Metoprolol Tartrate (Lopressor) 12.5 mg BID 06/07/17 13:30 06/09/17 08:47 12.5 MG Norepinephrine Bitartrate 250 ml @ 0 mls/hr CONT PRN 06/05/17 22:45 06/05/17 23:13 9.375 MLS/HR Ondansetron HCl (Zofran) 4 mg PRN Q6HRS PRN 06/08/17 09:00 Prednisone (Prednisone) 50 mg TID@0700,1500,2300 06/08/17 15:00 06/09/17 07:01 DC 06/09/17 06:27 50 MG Sodium Chloride 1,000 ml @ 60 mls/hr [id number] 06/08/17 20:00 06/08/17 21:47 60 MLS/HR Vancomycin HCl 1 each 1X ONCE 06/07/17 20:00 06/07/17 20:00 DC Vancomycin HCl (Vanco Per Pharmacy) 1 each PRN DAILY PRN 06/05/17 20:15 06/07/17 09:14 DC 06/06/17 15:14 1 EACH Vancomycin HCl 1.25 gm/Sodium Chloride 250 ml @ 167 mls/hr Q24H 06/06/17 22:00 06/06/17 22:00 DC Vancomycin HCl 2 gm/Dextrose/ Sodium Chloride 500 ml @ 250 mls/hr 1X ONCE 06/05/17 21:00 06/05/17 22:59 DC 06/05/17 21:45 250 MLS/HR Lab Laboratory Tests Test 06/08/17 16:44 06/08/17 21:40 06/08/17 21:49 06/09/17 06:30 Glucose (Fingerstick) 145 mg/dL (70-99) 235 mg/dL (70-99) Heparin Anti-Xa Act, Unfractionated 0.22 IU/mL (0.30-0.70) 0.29 IU/mL (0.30-0.70) White Blood Count 10.5 x10^3/uL (4.0-11.0) Red Blood Count 3.42 x10^6/uL (3.50-5.40) Hemoglobin 9.1 g/dL (12.0-15.5) Hematocrit 28.1 % (36.0-47.0) Mean Corpuscular Volume 82 fL (79-100) Mean Corpuscular Hemoglobin 27 pg (25-35) Mean Corpuscular Hemoglobin Concent 32 g/dL (31-37) Red Cell Distribution Width 18.2 % (11.5-14.5) Platelet Count 114 x10^3/uL (140-400) Neutrophils (%) (Auto) 90 % (31-73) Lymphocytes (%) (Auto) 6 % (24-48) Monocytes (%) (Auto) 4 % (0-9) Eosinophils (%) (Auto) 0 % (0-3) Basophils (%) (Auto) 0 % (0-3) Neutrophils # (Auto) 9.4 x10^3uL (1.8-7.7) Lymphocytes # (Auto) 0.7 x10^3/uL (1.0-4.8) Monocytes # (Auto) 0.4 x10^3/uL (0.0-1.1) Eosinophils # (Auto) 0.0 x10^3/uL (0.0-0.7) Basophils # (Auto) 0.0 x10^3/uL (0.0-0.2) Sodium Level 132 mmol/L (136-145) Potassium Level 4.4 mmol/L (3.5-5.1) Chloride Level 99 mmol/L (98-107) Carbon Dioxide Level 21 mmol/L (21-32) Anion Gap 12 (6-14) Blood Urea Nitrogen 64 mg/dL (7-20) Creatinine 3.2 mg/dL (0.6-1.0) Estimated GFR (Cockcroft-Gault) 17.9 Glucose Level 218 mg/dL (70-99) Calcium Level 8.8 mg/dL (8.5-10.1) Phosphorus Level 4.4 mg/dL (2.6-4.7) Magnesium Level 2.1 mg/dL (1.8-2.4) Albumin 2.3 g/dL (3.4-5.0) Vitamin B12 Level 1751 pg/mL (247-911) Serum Folate 7.53 ng/ml (3.2-20.0) Test 06/09/17 07:52 06/09/17 11:44 Glucose (Fingerstick) 204 mg/dL (70-99) 190 mg/dL (70-99) INGRID LOMBARDI MD Jun 09, 2017 14:50
[2017-06-09] MEDS ORDERED: MIDAZOLAM HCL/PF 2 MG/2 ML VIAL. ONE (15:02)
[2017-06-09] MEDS ORDERED: fentaNYL PF VIAL 100 MCG/2 ML VIAL ONE (15:02)
[2017-06-09] MEDS ORDERED: BIVALIRUDIN 250 MG VIAL. IV ONE ×2 (15:19→15:45)
[2017-06-09] MEDS ORDERED: CLOPIDOGREL BISULFATE 75 MG TABLET ONE ×2 (15:37→15:51)
[2017-06-09] MEDS ORDERED: CLOPIDOGREL BISULFATE 75 MG TABLET PO ONE (15:45)
[2017-06-09] MEDS ORDERED: IODIXANOL 320 MG/ML 100 ML VIAL. IART ONE (15:45)
[2017-06-09] MEDS ORDERED: MIDAZOLAM HCL/PF 2 MG/2 ML VIAL. IV ONE (15:45)
[2017-06-09] MEDS ORDERED: fentaNYL PF VIAL 100 MCG/2 ML VIAL IV ONE (15:45)
[2017-06-09] MEDS ORDERED: LIDOCAINE 2% 20 ML VIAL. IJ ONE (15:45)
[2017-06-09] MEDS ORDERED: CONTRAST GIVEN MC PRN (16:00)
--- NOTE | 2017-06-09 16:14 | CARD ---
MR#: [id number] Date of Study: 06/09/2017 Ordering Physician: HARSHIL KEMP, Referring Physician: BULMARO HAIRSTON, Tech: APPROVED REPORT Procedure(s) performed: 1. Left heart catheterization, selective coronary angiography and left ventr iculography 2. Successful PCI/drug eluting stent placement to the left anterior descending artery Moderate sedation: 45 minutes INDICATION The indication(s) include : non-STEMI . PROCEDURE NARRATIVE After explaining the risks, benefits and alternative options, informed consent was obtained from crystal ent. Patient was brought to the cardiac Count Room Clerk and his right groin was prepped and draped in the us ual fashion. 20 mL of 2% lidocaine was infiltrated into the skin and subcutaneous tissues for local a nesthesia. Arterial access was obtained in the right common femoral artery and a 6 Belgian sheath was inserted. 6 Belgian JL4 and 6 Belgian JR4 catheter were used to perform selective angiography of the le ft and right coronary arteries. 6 Belgian pigtail catheter was used to perform left ventriculography. The following findings were noted. FINDINGS 1. Hemodynamics: Left ventricle end diastolic pressure 28 mmHg. No pullback gradient across the aort ic valve. 2. Left ventriculography: Severe left ventricle systolic dysfunction with ejection fraction estimat ed at 15-20%. No significant mitral regurgitation seen. 3. Coronary angiography: a. The left main coronary artery arose from the left sinus of Valsalva, gave rise to the left anteri or descending and left circumflex arteries and did not show any significant stenosis. b. The left anterior descending artery showed 90% stenosis involving the midsegment. c. The left circumflex artery did not show any significant stenosis. d. The right coronary artery was a large and dominant vessel that did not show any significant steno sis. INTERVENTIONS The left main coronary artery was engaged with a 6 Belgian XB 3.5 guide catheter and the stenosis in t he midsegment of the left anterior descending artery was crossed with a 0.014 inch [employer] paige dewire. This was predilated with a 2.5 x 15 mm trek balloon following which this was successfully hellen ated with a 2.5 x 23 mm Xience Alpine drug-eluting stent. Follow-up angiography showed resolution of the stenosis to 0% with HOANG-3 distal flow. Patient tolerated the procedure well. Hemostasis was achi eved using Angio-Seal. There were no immediate complications. Conclusion 1. Severe single-vessel coronary disease 2. Successful PCI/drug eluting stent placement to the left anterior descending artery 3. Severe left ventricle systolic dysfunction with ejection fraction estimated at 15-20 % Recommendations 1. Aspirin 325 mg daily 2. Plavix 75 mg daily for preferably one year 3. Cardiovascular risk factor modification 4. Optimization of medical therapy for cardiomyopathy Signed by : Ashwin Chavez, Electronically Approved : 06/09/2017 16:13:33
[2017-06-09] MEDS ORDERED: ASPIRIN CHEWABLE 81 MG TABLET. PO ONE (16:15)
[2017-06-09] MEDS ORDERED: NITROGLYCERIN SUBLINGUAL 0.4 MG BOTTLE OF 25. SL PRN (16:30)
[2017-06-09] MEDS ORDERED: ACETAMINOPHEN 325 MG TABLET. PO PRN (16:30)
--- NOTE | 2017-06-09 16:58 | PDOC ---
PROGRESS NOTES Subjective Subjective HPI - f/u of Thrombocytopenia. ROS - no bleeding Objective Objective Vital Signs Date Time Temp Pulse Resp B/P (MAP) Pulse Ox O2 Delivery O2 Flow Rate FiO2 06/09/17 16:09 16 06/09/17 16:00 98 Nasal Cannula 2.0 06/09/17 14:45 98.0 77 106/58 (74) 98.0 Intake and Output 06/09/17 07:00 Intake Total 591 ml Output Total 150 ml Balance 441 ml Intake Oral 300 ml IV Total 291 ml Output Urine Total 150 ml Physical Exam General: Alert, No acute distress Neck: No JVD Psych/Mental Status: Mental status NL Assessment Assessment Problems Medical Problems: (1) Congestive heart disease Status: Acute (2) Elevated troponin Status: Acute (3) Pneumonia Status: Acute (4) Sepsis Status: Acute IMPRESSION AND PLAN: 1. Thrombocytopenia. This is a reactive thrombocytopenia due to underlying sepsis. No clinical evidence of thrombotic thrombocytopenic purpura or disseminated intravascular coagulation. Reticulocyte count is normal. Platelets better at 114. Continue to monitor. I will f/u on 06/13/17. On-call team will be available if needed. 2. Anemia, normochromic, normocytic. Iron studies are suggestive of anemia due to chronic disease. I will obtain B12 and folic acid levels. 3. Renal failure. 4. Sepsis. Comment Review of Relevant I have reviewed the following items bro (where applicable) has been applied. Labs Laboratory Tests Test 06/07/17 17:45 06/07/17 21:14 06/08/17 06:30 06/08/17 12:20 Urine Protein 26.5 mg/dL (Not Estab.) Urine Creatinine 24 Hour 433 mg/24 hr (800-1800) Creatinine Clearance 24 Hour 13 mL/min (88-128) Urine Protein 24 Hr Calculated 113 mg/24 hr (30-150) Creatinine 2.35 mg/dL (0.57-1.00) 3.2 mg/dL (0.6-1.0) Estimated GFR (Non- 22 (>59) EGFR 25 (>59) Glucose (Fingerstick) 167 mg/dL (70-99) 178 mg/dL (70-99) Heparin Anti-Xa Act, Unfractionated 0.26 IU/mL (0.30-0.70) Sodium Level 136 mmol/L (136-145) Potassium Level 4.2 mmol/L (3.5-5.1) Chloride Level 101 mmol/L (98-107) Carbon Dioxide Level 25 mmol/L (21-32) Anion Gap 10 (6-14) Blood Urea Nitrogen 59 mg/dL (7-20) Estimated GFR (Cockcroft-Gault) 17.9 Glucose Level 174 mg/dL (70-99) Calcium Level 8.4 mg/dL (8.5-10.1) Phosphorus Level 3.8 mg/dL (2.6-4.7) Magnesium Level 2.1 mg/dL (1.8-2.4) Albumin 2.3 g/dL (3.4-5.0) Test 06/08/17 14:25 06/08/17 16:44 06/08/17 21:40 06/08/17 21:49 Heparin Anti-Xa Act, Unfractionated 0.35 IU/mL (0.30-0.70) 0.22 IU/mL (0.30-0.70) Glucose (Fingerstick) 145 mg/dL (70-99) 235 mg/dL (70-99) Test 06/09/17 06:30 06/09/17 07:52 06/09/17 11:44 White Blood Count 10.5 x10^3/uL (4.0-11.0) Red Blood Count 3.42 x10^6/uL (3.50-5.40) Hemoglobin 9.1 g/dL (12.0-15.5) Hematocrit 28.1 % (36.0-47.0) Mean Corpuscular Volume 82 fL (79-100) Mean Corpuscular Hemoglobin 27 pg (25-35) Mean Corpuscular Hemoglobin Concent 32 g/dL (31-37) Red Cell Distribution Width 18.2 % (11.5-14.5) Platelet Count 114 x10^3/uL (140-400) Neutrophils (%) (Auto) 90 % (31-73) Lymphocytes (%) (Auto) 6 % (24-48) Monocytes (%) (Auto) 4 % (0-9) Eosinophils (%) (Auto) 0 % (0-3) Basophils (%) (Auto) 0 % (0-3) Neutrophils # (Auto) 9.4 x10^3uL (1.8-7.7) Lymphocytes # (Auto) 0.7 x10^3/uL (1.0-4.8) Monocytes # (Auto) 0.4 x10^3/uL (0.0-1.1) Eosinophils # (Auto) 0.0 x10^3/uL (0.0-0.7) Basophils # (Auto) 0.0 x10^3/uL (0.0-0.2) Heparin Anti-Xa Act, Unfractionated 0.29 IU/mL (0.30-0.70) Sodium Level 132 mmol/L (136-145) Potassium Level 4.4 mmol/L (3.5-5.1) Chloride Level 99 mmol/L (98-107) Carbon Dioxide Level 21 mmol/L (21-32) Anion Gap 12 (6-14) Blood Urea Nitrogen 64 mg/dL (7-20) Creatinine 3.2 mg/dL (0.6-1.0) Estimated GFR (Cockcroft-Gault) 17.9 Glucose Level 218 mg/dL (70-99) Calcium Level 8.8 mg/dL (8.5-10.1) Phosphorus Level 4.4 mg/dL (2.6-4.7) Magnesium Level 2.1 mg/dL (1.8-2.4) Albumin 2.3 g/dL (3.4-5.0) Vitamin B12 Level 1751 pg/mL (247-911) Serum Folate 7.53 ng/ml (3.2-20.0) Glucose (Fingerstick) 204 mg/dL (70-99) 190 mg/dL (70-99) Laboratory Tests Test 06/08/17 21:40 06/08/17 21:49 06/09/17 06:30 06/09/17 07:52 Heparin Anti-Xa Act, Unfractionated 0.22 IU/mL (0.30-0.70) 0.29 IU/mL (0.30-0.70) Glucose (Fingerstick) 235 mg/dL (70-99) 204 mg/dL (70-99) White Blood Count 10.5 x10^3/uL (4.0-11.0) Red Blood Count 3.42 x10^6/uL (3.50-5.40) Hemoglobin 9.1 g/dL (12.0-15.5) Hematocrit 28.1 % (36.0-47.0) Mean Corpuscular Volume 82 fL (79-100) Mean Corpuscular Hemoglobin 27 pg (25-35) Mean Corpuscular Hemoglobin Concent 32 g/dL (31-37) Red Cell Distribution Width 18.2 % (11.5-14.5) Platelet Count 114 x10^3/uL (140-400) Neutrophils (%) (Auto) 90 % (31-73) Lymphocytes (%) (Auto) 6 % (24-48) Monocytes (%) (Auto) 4 % (0-9) Eosinophils (%) (Auto) 0 % (0-3) Basophils (%) (Auto) 0 % (0-3) Neutrophils # (Auto) 9.4 x10^3uL (1.8-7.7) Lymphocytes # (Auto) 0.7 x10^3/uL (1.0-4.8) Monocytes # (Auto) 0.4 x10^3/uL (0.0-1.1) Eosinophils # (Auto) 0.0 x10^3/uL (0.0-0.7) Basophils # (Auto) 0.0 x10^3/uL (0.0-0.2) Sodium Level 132 mmol/L (136-145) Potassium Level 4.4 mmol/L (3.5-5.1) Chloride Level 99 mmol/L (98-107) Carbon Dioxide Level 21 mmol/L (21-32) Anion Gap 12 (6-14) Blood Urea Nitrogen 64 mg/dL (7-20) Creatinine 3.2 mg/dL (0.6-1.0) Estimated GFR (Cockcroft-Gault) 17.9 Glucose Level 218 mg/dL (70-99) Calcium Level 8.8 mg/dL (8.5-10.1) Phosphorus Level 4.4 mg/dL (2.6-4.7) Magnesium Level 2.1 mg/dL (1.8-2.4) Albumin 2.3 g/dL (3.4-5.0) Vitamin B12 Level 1751 pg/mL (247-911) Serum Folate 7.53 ng/ml (3.2-20.0) Test 12/22/17 11:44 Glucose (Fingerstick) 190 mg/dL (70-99) Microbiology 06/06/17 Blood Culture - Preliminary, Resulted NO GROWTH AFTER 3 DAYS 06/07/17 - Final, Resulted 06/07/17 - Final, Resulted 06/07/17 - Final, Resulted 06/07/17 Gram Stain Evaluation - Final, Resulted 06/07/17 Sputum Culture - Preliminary, Resulted 06/07/17 Sputum Result 1 - Final, Resulted 06/06/17 Urine Culture - Final, Complete 06/06/17 Urine Culture Result 1 (TANJA) - Final, Complete Medications Current Medications Ondansetron HCl (Zofran) 8 mg 1X ONCE IV Last administered on 06/05/17 18:36 ; Start 06/05/17 at 18:30; Stop 06/05/17 at 18:31; Status DC Aspirin (Children'S Aspirin) 324 mg 1X ONCE PO Last administered on 19:48; Start 06/05/17 at 19:45; Stop 06/05/17 at 19:46; Status DC Sodium Chloride 1,000 ml @ 1,000 mls/hr 1X ONCE IV Last administered on 06/05 20:12; Start 06/05/17 at 20:00; Stop 06/05/17 at 20:59; Status DC Cefepime HCl 2 gm/ Dextrose 100 ml @ 200 mls/hr 1X ONCE IV ; Start 06/05/17 at 20:00; Stop 06/05/17 at 20:04; Status DC Cefepime HCl (Maxipime) 2 gm Q12HR IVP Last administered on 06/08/17 09:02; Start 06/05/17 at 21:00; Stop 06/08/17 at 09:21; Status DC Ondansetron HCl (Zofran) 4 mg PRN Q8HRS PRN IV NAUSEA/VOMITING; Start at 20:15; Stop 06/06/17 at 08:52; Status DC Sodium Chloride 1,000 ml @ 75 mls/hr [id number] IV Last administered on 10:30; Start 06/05/17 at 20:06; Stop 06/06/17 at 20:05; Status DC Albuterol/ Ipratropium (Duoneb) 3 ml RTQID NEB ; Start 06/06/17 at 08:00; Stop 06/07/17 at 07:59; Status DC Acetaminophen (Tylenol) 650 mg PRN Q6HRS PRN PO fever Last administered on 16:33; Start 06/05/17 at 20:15; Stop 06/09/17 at 16:31; Status DC Vancomycin HCl (Vanco Per Pharmacy) 1 each PRN DAILY PRN MC SEE COMMENTS Last administered on 06/06/17 15:14; Start 06/05/17 at 20:15; Stop 06/07/17 at 09 :14; Status DC Acetaminophen (Tylenol) 1,000 mg 1X ONCE PO Last administered on 06/05/17 20 :17; Start 06/05/17 at 20:15; Stop 06/05/17 at 20:21; Status DC Vancomycin HCl 2 gm/Dextrose/ Sodium Chloride 500 ml @ 250 mls/hr 1X ONCE IV Last administered on 06/05/17 21:45; Start 06/05/17 at 21:00; Stop 06/05/17 at 22:59; Status DC Vancomycin HCl 1.25 gm/Sodium Chloride 250 ml @ 167 mls/hr Q24H IV ; Start at 22:00; Stop 06/06/17 at 22:00; Status DC Vancomycin HCl 1 each 1X ONCE MC ; Start 06/07/17 at 20:00; Stop 06/07/17 at 20:00; Status DC Norepinephrine Bitartrate 250 ml @ 0 mls/hr CONT PRN IV SEE I/O RECORD Last administered on 06/05/17 23:13; Start 06/05/17 at 22:45 Magnesium Sulfate/ Dextrose 50 ml @ 25 mls/hr PRN DAILY PRN IV for Mag < 1.7 on am labs Last administered on 06/06/17 12:40; Start 06/06/17 at 08:30 Ondansetron HCl (Zofran) 4 mg PRN Q6HRS PRN IV NAUSEA/VOMITING; Start at 09:00; Stop 06/07/17 at 08:59; Status DC Guaifenesin (Robitussin Dm) 10 ml QID PO Last administered on 06/09/17 08:46 ; Start 06/06/17 at 09:00 Heparin Sodium (Porcine) (Heparin Sodium) 4,000 unit 1X ONCE IV Last administered on 06/06/17 10:19; Start 06/06/17 at 09:15; Stop 06/06/17 at 09 :21; Status DC Heparin Sodium/ Dextrose 500 ml @ 0 mls/hr CONT PRN IV SEE I/O RECORD Last administered on 06/08/17 16:49; Start 06/06/17 at 09:15 Heparin Sodium (Porcine) (Heparin Sodium) 2,000 unit PRN Q6HRS PRN IV FOR UFH LEVEL LESS THAN 0.2; Start 06/06/17 at 09:15 Furosemide (Lasix) 40 mg 1X ONCE IVP Last administered on 06/06/17 10:09; Start 06/06/17 at 10:00; Stop 06/06/17 at 10:01; Status DC Aspirin (Ecotrin) 81 mg DAILYWBKFT PO Last administered on 06/09/17 08:46; Start 06/07/17 at 08:00 Lactobacillus Rhamnosus (Culturelle) 1 cap BID PO Last administered on 21:39; Start 06/06/17 at 21:00 Acetaminophen/ Hydrocodone Bitart (Lortab 5/325) 1 tab PRN Q6HRS PRN PO PAIN Last administered on 06/08/17 21:47; Start 06/06/17 at 20:30 Capsaicin (Zostrix) 1 nelson TID TP Last administered on 06/09/17 08:48; Start 06/06/17 at 21:00 Benzonatate (Tessalon Perle) 100 mg TID PO Last administered on 06/09/17 08: 46; Start 06/07/17 at 04:00 Magnesium Sulfate/ Dextrose 50 ml @ 25 mls/hr 1X ONCE IV Last administered on 06/07/17 08:55; Start 06/07/17 at 09:00; Stop 06/07/17 at 10:59; Status DC Docusate Sodium (Colace) 100 mg DAILY PO Last administered on 06/08/17 09:01 ; Start 06/07/17 at 10:30 Metoprolol Tartrate (Lopressor) 12.5 mg BID PO Last administered on 06/09/17 08:47; Start 06/07/17 at 13:30 Info (Anti-Coagulation Monitoring By Pharmacy) 1 each PRN DAILY PRN MC SEE COMMENTS Last administered on 06/08/17 14:20; Start 06/08/17 at 08:00 Ondansetron HCl (Zofran) 4 mg PRN Q6HRS PRN IV NAUSEA/VOMITING 1ST CHOICE; Start 06/08/17 at 09:00 Ceftriaxone Sodium 2 gm/ Dextrose 100 ml @ 200 mls/hr Q12HR IV ; Start at 21:00; Status UNV Levofloxacin (Levaquin) 250 mg 1X ONCE PO ; Start 06/08/17 at 09:30; Stop at 09:30; Status DC Ceftriaxone Sodium (Rocephin) 2 gm Q12HR IVP Last administered on 06/09/17 08 :46; Start 06/08/17 at 10:00 Insulin Detemir (Levemir) 10 units QHS SQ Last administered on 06/08/17 21:53 ; Start 06/08/17 at 21:00 Insulin Aspart (NovoLOG) 0-9 UNITS TIDWMEALS SQ Last administered on 13:08; Start 06/08/17 at 12:00 Dextrose (Dextrose 50%-Water Syringe) 12.5 gm PRN Q15MIN PRN IV SEE COMMENTS; Start 06/08/17 at 09:45 Ferrous Sulfate (Feosol) 325 mg DAILYWBKFT PO Last administered on 06/08/17 10:32; Start 06/08/17 at 11:30 Prednisone (Prednisone) 50 mg TID@0700,1500,2300 PO Last administered on 06:27; Start 06/08/17 at 15:00; Stop 06/09/17 at 07:01; Status DC Diphenhydramine HCl (Benadryl) 50 mg 1X ONCE PO Last administered on 14:35; Start 06/09/17 at 07:00; Stop 06/09/17 at 07:01; Status DC Famotidine (Pepcid) 20 mg 1X ONCE PO Last administered on 06/09/17 14:35; Start 06/09/17 at 07:00; Stop 06/09/17 at 07:01; Status DC Sodium Chloride 1,000 ml @ 60 mls/hr [id number] IV Last administered on 21:47; Start 06/08/17 at 20:00 Methylprednisolone Sodium Succinate (SOLU-Medrol 125MG VIAL) 125 mg 1X ONCE IV ; Start 06/09/17 at 08:00; Stop 06/09/17 at 08:01; Status Cancel Diphenhydramine HCl (Benadryl) 50 mg 1X ONCE IVP ; Start 06/09/17 at 08:00; Stop 06/09/17 at 08:01; Status DC Acetylcysteine (Mucomyst 20% Oral Solution) 600 mg BID PO Last administered on 06/09/17 08:47; Start 06/09/17 at 08:00; Stop 06/11/17 at 07:59 Acetaminophen (Tylenol) 650 mg 1X ONCE PO Last administered on 06/09/17 14: 35; Start 06/09/17 at 08:00; Stop 06/09/17 at 08:01; Status DC Lidocaine/Sodium Bicarbonate (Buffered Lidocaine 1%) 3 ml STK-MED ONCE IJ ; Start 06/09/17 at 08:16; Stop 06/09/17 at 08:17; Status DC Heparin Sodium (Porcine) (Heparin Sodium) 10,000 unit STK-MED ONCE .ROUTE ; Start 06/09/17 at 08:16; Stop 06/09/17 at 08:17; Status DC Lidocaine/Sodium Bicarbonate (Buffered Lidocaine 1%) 6 ml 1X ONCE IJ Last administered on 06/09/17 09:25; Start 06/09/17 at 09:30; Stop 06/09/17 at 09 :31; Status DC Heparin Sodium (Porcine) (Heparin Sodium) 2,500 unit 1X ONCE INT CAT Last administered on 06/09/17 09:25; Start 06/09/17 at 09:30; Stop 06/09/17 at 09 :31; Status DC Methylprednisolone Sodium Succinate (SOLU-Medrol 125MG VIAL) 125 mg 1X ONCE IV Last administered on 06/09/17 14:36; Start 06/09/17 at 14:30; Stop at 14:31; Status DC Heparin Sodium/ Sodium Chloride 500 ml @ As Directed STK-MED ONCE .ROUTE ; Start 06/09/17 at 14:36; Stop 06/09/17 at 14:37; Status DC Iodixanol (Visipaque 320) 100 ml STK-MED ONCE .ROUTE ; Start 06/09/17 at 14:36 ; Stop 06/09/17 at 14:37; Status DC Lidocaine HCl 20 ml STK-MED ONCE .ROUTE ; Start 06/09/17 at 14:37; Stop at 14:38; Status DC Darbepoetin Joey (Aranesp) 60 mcg Fr SQ ; Start 06/09/17 at 21:00 Fentanyl Citrate (Fentanyl 2ml Vial) 100 mcg STK-MED ONCE .ROUTE ; Start at 15:02; Stop 06/09/17 at 15:03; Status DC Midazolam HCl (Versed) 2 mg STK-MED ONCE .ROUTE ; Start 06/09/17 at 15:02; Stop 06/09/17 at 15:03; Status DC Bivalirudin (Angiomax) 250 mg STK-MED ONCE IV ; Start 06/09/17 at 15:19; Stop 06/09/17 at 15:20; Status DC Iodixanol (Visipaque 320) 100 ml STK-MED ONCE .ROUTE ; Start 06/09/17 at 15:24 ; Stop 06/09/17 at 15:25; Status DC Clopidogrel Bisulfate (Plavix) 75 mg STK-MED ONCE .ROUTE ; Start 06/09/17 at 15 :37; Stop 06/09/17 at 15:38; Status DC Heparin Sodium/ Sodium Chloride 1,000 unit 1X ONCE IART Last administered on 06/09/17 15:55; Start 06/09/17 at 15:45; Stop 06/09/17 at 15:48; Status DC Midazolam HCl (Versed) 0.5 mg 1X ONCE IV Last administered on 06/09/17 15:54 ; Start 06/09/17 at 15:45; Stop 06/09/17 at 15:48; Status DC Fentanyl Citrate (Fentanyl 2ml Vial) 12.5 mcg 1X ONCE IV Last administered on 06/09/17 16:00; Start 06/09/17 at 15:45; Stop 06/09/17 at 15:48; Status DC Iodixanol (Visipaque 320) 154 ml 1X ONCE IART Last administered on 06/09/17 15:55; Start 06/09/17 at 15:45; Stop 06/09/17 at 15:48; Status DC Bivalirudin (Angiomax) 250 mg 1X ONCE IV Last administered on 06/09/17 15:59 ; Start 06/09/17 at 15:45; Stop 06/09/17 at 15:48; Status DC Clopidogrel Bisulfate (Plavix) 600 mg 1X ONCE PO Last administered on 16:00; Start 06/09/17 at 15:45; Stop 06/09/17 at 15:48; Status DC Lidocaine HCl 20 ml 1X ONCE IJ Last administered on 06/09/17 15:55; Start 06/09/17 at 15:45; Stop 06/09/17 at 15:48; Status DC Info (Do NOT chart on this entry -- for MONITORING) 1 each PRN DAILY PRN MC SEE COMMENTS; Start 06/09/17 at 16:00; Stop 06/11/17 at 15:59 Clopidogrel Bisulfate (Plavix) 75 mg STK-MED ONCE .ROUTE ; Start 06/09/17 at 15 :51; Stop 06/09/17 at 15:52; Status DC Aspirin (Children'S Aspirin) 244 mg 1X ONCE PO Last administered on 16:03; Start 06/09/17 at 16:15; Stop 06/09/17 at 16:16; Status DC Aspirin (Ecotrin) 325 mg DAILYWBKFT PO ; Start 06/10/17 at 08:00 Clopidogrel Bisulfate (Plavix) 75 mg DAILYWBKFT PO ; Start 06/10/17 at 08:00 Atorvastatin Calcium (Lipitor) 40 mg QHS PO ; Start 06/09/17 at 21:00 Acetaminophen (Tylenol) 650 mg PRN Q6HRS PRN PO MILD PAIN / TEMP; Start at 16:30 Fentanyl Citrate (Fentanyl 2ml Vial) 50 mcg PRN Q1HR PRN IV MODERATE OR SEVERE PAIN; Start 06/09/17 at 16:30 Nitroglycerin (Nitrostat) 0.4 mg PRN Q5MIN PRN SL CHEST PAIN; Start 06/09/17 at 16:30 Active Scripts Active Cyclobenzaprine Hcl 10 Mg Tablet 1 Tab PO QHS Reported Coreg (Carvedilol) 6.25 Mg Tablet 1.5 Tab PO BID Entresto 49 mg-51 mg Tablet (Sacubitril/Valsartan) 1 Each Tablet 1 Each PO BID Atorvastatin Calcium 40 Mg Tablet 40 Mg PO HS Miralax (Polyethylene Glycol 3350) 17 Gm Powd.pack 1 Packet PO PRN DAILY PRN Colace (Docusate Sodium) 100 Mg Capsule 1 Cap PO DAILY Furosemide 20 Mg Tablet 40 Mg PO DAILY Gabapentin 300 Mg Capsule 600 Mg PO PRN TID PRN Vitamin B-12 (Cyanocobalamin (Vitamin B-12)) 1,000 Mcg Tablet 500 Mcg PO DAILY Lantus Solostar (Insulin Glargine,Hum.rec.anlog) 100 Unit/1 Ml Insuln.pen 25 Unit SQ QHS Novolog (Insulin Aspart) 100 Unit/1 Ml Cartridge 3 Unit SQ TIDAC Aspirin 81 Mg Tab.chew 81 Mg PO DAILY Metformin Hcl 500 Mg Tablet 1,000 Mg PO BID Vitals/I & O Vital Sign - Last 24 Hours 06/08/17 06/08/17 06/08/17 06/08/17 20:30 20:34 21:40 21:47 Temp 98.6 98.6 Pulse 93 93 Resp 20 20 B/P (MAP) 134/63 (86) 134/63 Pulse Ox 94 O2 Delivery Nasal Cannula Nasal Cannula Nasal Cannula O2 Flow Rate 2.0 2.0 2.0 06/08/17 06/08/17 06/09/17 06/09/17 22:47 23:54 03:45 08:05 Temp 98.0 98.1 98.0 98.1 Pulse 82 79 Resp 20 22 B/P (MAP) 97/53 (68) 115/59 (77) Pulse Ox 96 94 O2 Delivery Nasal Cannula Room Air Room Air Room Air O2 Flow Rate 2.0 06/09/17 06/09/17 06/09/17 06/09/17 08:47 10:50 14:45 16:00 Temp 97.8 98.0 97.8 98.0 Pulse 79 80 77 Resp 19 18 16 B/P (MAP) 115/59 114/61 (78) 106/58 (74) Pulse Ox 96 94 98 O2 Delivery Nasal Cannula Nasal Cannula Nasal Cannula O2 Flow Rate 2.0 2.0 2.0 06/09/17 16:09 Resp 16 Intake and Output 06/08/17 06/08/17 06/09/17 15:00 23:00 07:00 Intake Total 60 ml 531 ml Output Total 150 ml Balance -90 ml 531 ml Nutrition Consultation Dietary Evaluation: Recommendations by RD: Increase Calorie Intake Comments: REC Cardiac/ADA diet Expected Outcomes/Goals: Diet advancement within 24 - 48 hrs - met, new goal established New goal: PO intake to meet > 75% est needs Interpretation of weight loss: >5% in 1 month Malnutrition Findings: Food and Nutrition Intake (Mod: <75% est energy req 7days Weight Status: Overweight SEGUNDO CABRAL MD Jun 09, 2017 16:58
--- NOTE | 2017-06-09 17:11 | RAD ---
Procedure: Temporary hemodialysis catheter placement under fluoroscopy 06/09/2017 Clinical Indication: Preoperative cardiac catheterization. Renal insufficiency. Sterility: All elements of maximal sterile barrier technique including the use of a cap, mask, sterile gown, sterile gloves, large sterile sheet, appropriate hand hygiene, and 2% chlorhexidine for cutaneous antisepsis (or acceptable alternative antiseptic per current guidelines) were followed for this procedure. Consent: The procedure was explained in its entirety to the patient or the patients designated canvas products sales representative by a member of the treatment team, including a discussion of the risks, benefits and commonly accepted alternatives to the procedure, as well as the expected consequences of no therapy whatsoever. Discussion of the risks included, but was not limited to, those that are most frequent and those that are rare but possibly severe or life-threatening, as well as the possibility of unforeseen complications. Technique and Findings: Following informed consent, the patient was prepped and draped in the usual sterile fashion. Ultrasound interrogation of the right neck revealed patency and compressibility of the ] internal jugular vein. A 21-gauge micropuncture needle was used to gain access to this vein after 1% Lidocaine was used to achieve local anesthesia. A hardcopy ultrasound image was recorded. The needle was exchanged over a wire for serial dilators followed by a 15 cm Schon 14.5 Setswana temporary hemodialysis catheter which was deployed under fluoroscopic guidance such that the distal tip resided in the mid right atrium. The catheter flow rates were assessed manually and found to be within normal limits. The catheter was then flushed, packed with Heparin, capped, and sutured to the skin. No immediate complications were identified. Fluoroscopy time: 1.6 minutes Dose area product 4 Bailey centimeters squared Impression: Ultrasound and fluoroscopic guided placement of a temporary hemodialysis catheter
[2017-06-09] MEDS: IV NORMAL SALINE 1000ML BAG 1,000 ML IV SCH (18:14)
[2017-06-09] MEDS: ATORVASTATIN CALCIUM 20 MG TABLET PO SCH (20:53)
[2017-06-09] MEDS ORDERED: DARBEPOETIN ALFA 60 MCG/0.3 ML DISP.SYRIN. SQ SCH (21:00)
[2017-06-09] MEDS: INSULIN DETEMIR 300 UNITS/3 ML INSULN.PEN. SQ SCH (21:13)
[2017-06-10 03:15] VITALS: BP 135/76
[2017-06-10 04:53] LABS: BASO % 0 % (0-3); EOS % 0 % (0-3); HEMATOCRIT 26.1 % (36.0-47.0); HEMOGLOBIN 8.5 g/dL (12.0-15.5); LYMPH # 0.7 x10^3/uL (1.0-4.8); LYMPH % 8 % (24-48); MEAN CORPUSCULAR HEMOGLOBIN 27 pg (25-35); MEAN CORPUSCULAR HGB CONC 33 g/dL (31-37); MEAN CORPUSCULAR VOLUME 83 fL (79-100); MONO % 9 % (0-9); NEUT % 83 % (31-73); PLATELET COUNT 122 x10^3/uL (140-400); RED BLOOD COUNT 3.16 x10^6/uL (3.50-5.40); RED CELL DISTRIBUTION WIDTH 17.6 % (11.5-14.5); WHITE BLOOD COUNT 8.9 x10^3/uL (4.0-11.0)
[2017-06-10 05:10] LABS: ALBUMIN 2.1 g/dL (3.4-5.0); CALCIUM 8.5 mg/dL (8.5-10.1); CREATININE 3.1 mg/dL (0.6-1.0); GFR 18.5; MAGNESIUM 2.1 mg/dL (1.8-2.4); PHOSPHORUS 4.8 mg/dL (2.6-4.7); POTASSIUM 4.1 mmol/L (3.5-5.1)
[2017-06-10] MEDS: IV NORMAL SALINE 1000ML BAG 1,000 ML IV SCH ×2 (05:20→09:16)
[2017-06-10 07:00] VITALS: BP 131/67
[2017-06-10] MEDS ORDERED: IV NORMAL SALINE 1000ML BAG 1,000 ML IV PRN ×2 (08:25)
[2017-06-10] MEDS ORDERED: 0.9 % SODIUM CHLORIDE 10 ML DISP.SYRIN. IV PRN ×2 (08:30)
[2017-06-10] MEDS ORDERED: DIALYSIS PATIENT. MC PRN (08:30)
[2017-06-10] MEDS ORDERED: diphenhydrAMINE 50 MG/ML VIAL IV PRN ×2 (08:30)
[2017-06-10] MEDS: BENZONATATE 100 MG CAPSULE. PO SCH ×3 (09:00→20:17)
[2017-06-10] MEDS: guaiFENesin DM 200MG/20MG 10 ML SYRUP PO SCH ×4 (09:00→20:17)
[2017-06-10] MEDS: CAPSAICIN 0.025% TOPICAL CREAM 60GM TUBE. TP SCH ×3 (09:00→21:00)
[2017-06-10] MEDS: INSULIN ASPART 300 UNITS/3 ML INSULN.PEN SQ SCH ×3 (09:21→17:34)
[2017-06-10 10:47] VITALS: BP 125/64
--- NOTE | 2017-06-10 11:45 | PDOC ---
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 Vitals Vital Signs Vital Signs Date Time Temp Pulse Resp B/P (MAP) Pulse Ox O2 Delivery O2 Flow Rate FiO2 06/10/17 10:47 97.8 79 18 125/64 (84) 93 Nasal Cannula 2.0 97.8 Labs Last Labs Laboratory Tests Test 06/08/17 12:20 06/08/17 14:25 06/08/17 16:44 06/08/17 21:40 Glucose (Fingerstick) 178 mg/dL (70-99) 145 mg/dL (70-99) Heparin Anti-Xa Act, Unfractionated 0.35 IU/mL (0.30-0.70) 0.22 IU/mL (0.30-0.70) Test 06/08/17 21:49 06/09/17 06:30 06/09/17 07:52 06/09/17 11:44 Glucose (Fingerstick) 235 mg/dL (70-99) 204 mg/dL (70-99) 190 mg/dL (70-99) White Blood Count 10.5 x10^3/uL (4.0-11.0) Red Blood Count 3.42 x10^6/uL (3.50-5.40) Hemoglobin 9.1 g/dL (12.0-15.5) Hematocrit 28.1 % (36.0-47.0) Mean Corpuscular Volume 82 fL (79-100) Mean Corpuscular Hemoglobin 27 pg (25-35) Mean Corpuscular Hemoglobin Concent 32 g/dL (31-37) Red Cell Distribution Width 18.2 % (11.5-14.5) Platelet Count 114 x10^3/uL (140-400) Neutrophils (%) (Auto) 90 % (31-73) Lymphocytes (%) (Auto) 6 % (24-48) Monocytes (%) (Auto) 4 % (0-9) Eosinophils (%) (Auto) 0 % (0-3) Basophils (%) (Auto) 0 % (0-3) Neutrophils # (Auto) 9.4 x10^3uL (1.8-7.7) Lymphocytes # (Auto) 0.7 x10^3/uL (1.0-4.8) Monocytes # (Auto) 0.4 x10^3/uL (0.0-1.1) Eosinophils # (Auto) 0.0 x10^3/uL (0.0-0.7) Basophils # (Auto) 0.0 x10^3/uL (0.0-0.2) Heparin Anti-Xa Act, Unfractionated 0.29 IU/mL (0.30-0.70) Sodium Level 132 mmol/L (136-145) Potassium Level 4.4 mmol/L (3.5-5.1) Chloride Level 99 mmol/L (98-107) Carbon Dioxide Level 21 mmol/L (21-32) Anion Gap 12 (6-14) Blood Urea Nitrogen 64 mg/dL (7-20) Creatinine 3.2 mg/dL (0.6-1.0) Estimated GFR (Cockcroft-Gault) 17.9 Glucose Level 218 mg/dL (70-99) Calcium Level 8.8 mg/dL (8.5-10.1) Phosphorus Level 4.4 mg/dL (2.6-4.7) Magnesium Level 2.1 mg/dL (1.8-2.4) Albumin 2.3 g/dL (3.4-5.0) Vitamin B12 Level 1751 pg/mL (247-911) Serum Folate 7.53 ng/ml (3.2-20.0) Test 06/09/17 17:19 06/09/17 20:21 06/10/17 03:25 06/10/17 07:40 Glucose (Fingerstick) 172 mg/dL (70-99) 245 mg/dL (70-99) 247 mg/dL (70-99) White Blood Count 8.9 x10^3/uL (4.0-11.0) Red Blood Count 3.16 x10^6/uL (3.50-5.40) Hemoglobin 8.5 g/dL (12.0-15.5) Hematocrit 26.1 % (36.0-47.0) Mean Corpuscular Volume 83 fL (79-100) Mean Corpuscular Hemoglobin 27 pg (25-35) Mean Corpuscular Hemoglobin Concent 33 g/dL (31-37) Red Cell Distribution Width 17.6 % (11.5-14.5) Platelet Count 122 x10^3/uL (140-400) Neutrophils (%) (Auto) 83 % (31-73) Lymphocytes (%) (Auto) 8 % (24-48) Monocytes (%) (Auto) 9 % (0-9) Eosinophils (%) (Auto) 0 % (0-3) Basophils (%) (Auto) 0 % (0-3) Neutrophils # (Auto) 7.3 x10^3uL (1.8-7.7) Lymphocytes # (Auto) 0.7 x10^3/uL (1.0-4.8) Monocytes # (Auto) 0.8 x10^3/uL (0.0-1.1) Eosinophils # (Auto) 0.0 x10^3/uL (0.0-0.7) Basophils # (Auto) 0.0 x10^3/uL (0.0-0.2) Sodium Level 132 mmol/L (136-145) Potassium Level 4.1 mmol/L (3.5-5.1) Chloride Level 99 mmol/L (98-107) Carbon Dioxide Level 21 mmol/L (21-32) Anion Gap 12 (6-14) Blood Urea Nitrogen 70 mg/dL (7-20) Creatinine 3.1 mg/dL (0.6-1.0) Estimated GFR (Cockcroft-Gault) 18.5 Glucose Level 260 mg/dL (70-99) Calcium Level 8.5 mg/dL (8.5-10.1) Phosphorus Level 4.8 mg/dL (2.6-4.7) Magnesium Level 2.1 mg/dL (1.8-2.4) Albumin 2.1 g/dL (3.4-5.0) Test 06/10/17 11:07 Glucose (Fingerstick) 258 mg/dL (70-99) Laboratory Tests Test 06/09/17 17:19 06/09/17 20:21 06/10/17 03:25 06/10/17 07:40 Glucose (Fingerstick) 172 mg/dL (70-99) 245 mg/dL (70-99) 247 mg/dL (70-99) White Blood Count 8.9 x10^3/uL (4.0-11.0) Red Blood Count 3.16 x10^6/uL (3.50-5.40) Hemoglobin 8.5 g/dL (12.0-15.5) Hematocrit 26.1 % (36.0-47.0) Mean Corpuscular Volume 83 fL (79-100) Mean Corpuscular Hemoglobin 27 pg (25-35) Mean Corpuscular Hemoglobin Concent 33 g/dL (31-37) Red Cell Distribution Width 17.6 % (11.5-14.5) Platelet Count 122 x10^3/uL (140-400) Neutrophils (%) (Auto) 83 % (31-73) Lymphocytes (%) (Auto) 8 % (24-48) Monocytes (%) (Auto) 9 % (0-9) Eosinophils (%) (Auto) 0 % (0-3) Basophils (%) (Auto) 0 % (0-3) Neutrophils # (Auto) 7.3 x10^3uL (1.8-7.7) Lymphocytes # (Auto) 0.7 x10^3/uL (1.0-4.8) Monocytes # (Auto) 0.8 x10^3/uL (0.0-1.1) Eosinophils # (Auto) 0.0 x10^3/uL (0.0-0.7) Basophils # (Auto) 0.0 x10^3/uL (0.0-0.2) Sodium Level 132 mmol/L (136-145) Potassium Level 4.1 mmol/L (3.5-5.1) Chloride Level 99 mmol/L (98-107) Carbon Dioxide Level 21 mmol/L (21-32) Anion Gap 12 (6-14) Blood Urea Nitrogen 70 mg/dL (7-20) Creatinine 3.1 mg/dL (0.6-1.0) Estimated GFR (Cockcroft-Gault) 18.5 Glucose Level 260 mg/dL (70-99) Calcium Level 8.5 mg/dL (8.5-10.1) Phosphorus Level 4.8 mg/dL (2.6-4.7) Magnesium Level 2.1 mg/dL (1.8-2.4) Albumin 2.1 g/dL (3.4-5.0) Test 06/10/17 11:07 Glucose (Fingerstick) 258 mg/dL (70-99) Assessment Assessment Problems Medical Problems: (1) Congestive heart disease Status: Acute (2) Elevated troponin Status: Acute (3) Pneumonia Status: Acute (4) Sepsis Status: Acute Problems: Plan Plan of Care Problems Medical Problems: (1) Congestive heart disease Status: Acute (2) Elevated troponin Status: Acute (3) Pneumonia Status: Acute (4) Sepsis Status: Acute INGRID LOMBARDI MD Jun 10, 2017 11:45
--- NOTE | 2017-06-10 12:36 | PDOC ---
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 (06/09). clean Labs Lab Laboratory Tests Test 06/09/17 17:19 06/09/17 20:21 06/10/17 03:25 06/10/17 07:40 Glucose (Fingerstick) 172 mg/dL (70-99) 245 mg/dL (70-99) 247 mg/dL (70-99) White Blood Count 8.9 x10^3/uL (4.0-11.0) Red Blood Count 3.16 x10^6/uL (3.50-5.40) Hemoglobin 8.5 g/dL (12.0-15.5) Hematocrit 26.1 % (36.0-47.0) Mean Corpuscular Volume 83 fL (79-100) Mean Corpuscular Hemoglobin 27 pg (25-35) Mean Corpuscular Hemoglobin Concent 33 g/dL (31-37) Red Cell Distribution Width 17.6 % (11.5-14.5) Platelet Count 122 x10^3/uL (140-400) Neutrophils (%) (Auto) 83 % (31-73) Lymphocytes (%) (Auto) 8 % (24-48) Monocytes (%) (Auto) 9 % (0-9) Eosinophils (%) (Auto) 0 % (0-3) Basophils (%) (Auto) 0 % (0-3) Neutrophils # (Auto) 7.3 x10^3uL (1.8-7.7) Lymphocytes # (Auto) 0.7 x10^3/uL (1.0-4.8) Monocytes # (Auto) 0.8 x10^3/uL (0.0-1.1) Eosinophils # (Auto) 0.0 x10^3/uL (0.0-0.7) Basophils # (Auto) 0.0 x10^3/uL (0.0-0.2) Sodium Level 132 mmol/L (136-145) Potassium Level 4.1 mmol/L (3.5-5.1) Chloride Level 99 mmol/L (98-107) Carbon Dioxide Level 21 mmol/L (21-32) Anion Gap 12 (6-14) Blood Urea Nitrogen 70 mg/dL (7-20) Creatinine 3.1 mg/dL (0.6-1.0) Estimated GFR (Cockcroft-Gault) 18.5 Glucose Level 260 mg/dL (70-99) Calcium Level 8.5 mg/dL (8.5-10.1) Phosphorus Level 4.8 mg/dL (2.6-4.7) Magnesium Level 2.1 mg/dL (1.8-2.4) Albumin 2.1 g/dL (3.4-5.0) Test 06/10/17 11:07 Glucose (Fingerstick) 258 mg/dL (70-99) Micro SPUTUM CULT RES 1 Final Routine respiratory lucian URINE CULTURE RES 1 Final No growth in 48 hours. BLD CULT RESULT 1 Final Streptococcus pneumoniae Antibiotic RSLT#1 Ceftriaxone (meningitis) S Ceftriaxone (non-meningitis) S Erythromycin S Levofloxacin S Meropenem S Penicillin (oral pen V) S Penicillin IV (meningitis) S Penicillin IV (non-mening) S Tetracycline S Trimethoprim/Sulfa S Vancomycin S 06/06 BLOOD CULTURE Preliminary NO GROWTH AFTER 4 DAYS Objective Assessment Strep pneumoniae bacteremia, 06/05. repeat BC from 06/06 NGTD NSTEMI,CM ASHLEY /ATN s/p rt temp HD cath 06/09 Nausea and vomiting resolved Anemia, Paraproteinemia Rt Shoulder pain Plan Plan of Care Continue ceftriaxone 2gm IV q12 cont supportive care Patient seen and examined. Chart reviewed. Case discussed with COMPUTER SYSTEMS ARCHITECT. Agree with above plan. SAJI DUGAN APRN Jun 10, 2017 12:36 CECILIO MORALES MD Jun 10, 2017 18:51
--- NOTE | 2017-06-10 12:53 | PDOC ---
PROGRESS NOTES Subjective Subjective Denied any chest pain Objective Objective Vital Signs Date Time Temp Pulse Resp B/P (MAP) Pulse Ox O2 Delivery O2 Flow Rate FiO2 06/10/17 10:47 97.8 79 18 125/64 (84) 93 Nasal Cannula 2.0 97.8 Intake and Output 06/10/17 07:00 Intake Total 1336 ml Output Total 300 ml Balance 1036 ml Intake Oral 500 ml IV Total 836 ml Output Urine Total 300 ml Physical Exam Abdomen: Soft Heart: Regular rate (Paced), Other (3/6/systolic murmur to LLS border) Extremities: No cyanosis, No edema General: Alert, No acute distress HEENT: Atraumatic, Mucous membr. moist/pink Lungs: Other (upper rhonchi, basilar crackles) MUSCULOSKELETAL: Osteoarthritic changes both hands Neck: No JVD Neuro: Normal speech, Sensation intact Psych/Mental Status: Mental status NL Skin: No breakdown, No significant lesion Assessment Assessment 1. NSTEMI: s/p PCI/stent to LAD yesterday. Continue current meds including DAPT. 2. Chr systolic HF: well compensated. Continue current medical regimen 3. Sepsis: per ID 4. HLP/DM: per IM Follow up with our office in one month Plan Plan of Care Problems Medical Problems: (1) Congestive heart disease Status: Acute (2) Elevated troponin Status: Acute (3) Pneumonia Status: Acute (4) Sepsis Status: Acute Comment Review of Relevant I have reviewed the following items bro (where applicable) has been applied. Labs Laboratory Tests Test 06/09/17 17:19 06/09/17 20:21 06/10/17 03:25 06/10/17 07:40 Glucose (Fingerstick) 172 mg/dL (70-99) 245 mg/dL (70-99) 247 mg/dL (70-99) White Blood Count 8.9 x10^3/uL (4.0-11.0) Red Blood Count 3.16 x10^6/uL (3.50-5.40) Hemoglobin 8.5 g/dL (12.0-15.5) Hematocrit 26.1 % (36.0-47.0) Mean Corpuscular Volume 83 fL (79-100) Mean Corpuscular Hemoglobin 27 pg (25-35) Mean Corpuscular Hemoglobin Concent 33 g/dL (31-37) Red Cell Distribution Width 17.6 % (11.5-14.5) Platelet Count 122 x10^3/uL (140-400) Neutrophils (%) (Auto) 83 % (31-73) Lymphocytes (%) (Auto) 8 % (24-48) Monocytes (%) (Auto) 9 % (0-9) Eosinophils (%) (Auto) 0 % (0-3) Basophils (%) (Auto) 0 % (0-3) Neutrophils # (Auto) 7.3 x10^3uL (1.8-7.7) Lymphocytes # (Auto) 0.7 x10^3/uL (1.0-4.8) Monocytes # (Auto) 0.8 x10^3/uL (0.0-1.1) Eosinophils # (Auto) 0.0 x10^3/uL (0.0-0.7) Basophils # (Auto) 0.0 x10^3/uL (0.0-0.2) Sodium Level 132 mmol/L (136-145) Potassium Level 4.1 mmol/L (3.5-5.1) Chloride Level 99 mmol/L (98-107) Carbon Dioxide Level 21 mmol/L (21-32) Anion Gap 12 (6-14) Blood Urea Nitrogen 70 mg/dL (7-20) Creatinine 3.1 mg/dL (0.6-1.0) Estimated GFR (Cockcroft-Gault) 18.5 Glucose Level 260 mg/dL (70-99) Calcium Level 8.5 mg/dL (8.5-10.1) Phosphorus Level 4.8 mg/dL (2.6-4.7) Magnesium Level 2.1 mg/dL (1.8-2.4) Albumin 2.1 g/dL (3.4-5.0) Test 06/10/17 11:07 Glucose (Fingerstick) 258 mg/dL (70-99) Microbiology 06/06/17 Blood Culture - Preliminary, Resulted NO GROWTH AFTER 4 DAYS 06/07/17 - Final, Complete 06/07/17 - Final, Complete 06/07/17 - Final, Complete 06/07/17 Gram Stain Evaluation - Final, Complete 06/07/17 Sputum Culture - Final, Complete 06/07/17 Sputum Result 1 - Final, Complete 06/07/17 Sputum Result 2 - Final, Complete 06/06/17 Urine Culture - Final, Complete 06/06/17 Urine Culture Result 1 (TANJA) - Final, Complete Medications Current Medications Acetaminophen (Tylenol) 650 mg PRN Q6HRS PRN PO MILD PAIN / TEMP; Start at 16:30 Aspirin (Children'S Aspirin) 244 mg 1X ONCE PO Last administered on 16:03; Start 06/09/17 at 16:15; Stop 06/09/17 at 16:16; Status DC Aspirin (Ecotrin) 325 mg DAILYWBKFT PO ; Start 06/10/17 at 08:00 Atorvastatin Calcium (Lipitor) 40 mg QHS PO Last administered on 06/09/17 20: 53; Start 06/09/17 at 21:00 Bivalirudin (Angiomax) 250 mg 1X ONCE IV Last administered on 06/09/17 15:59 ; Start 06/09/17 at 15:45; Stop 06/09/17 at 15:48; Status DC Bivalirudin (Angiomax) 250 mg STK-MED ONCE IV ; Start 06/09/17 at 15:19; Stop 06/09/17 at 15:20; Status DC Clopidogrel Bisulfate (Plavix) 75 mg DAILYWBKFT PO ; Start 06/10/17 at 08:00 Clopidogrel Bisulfate (Plavix) 75 mg STK-MED ONCE .ROUTE ; Start 06/09/17 at 15 :37; Stop 06/09/17 at 15:38; Status DC Clopidogrel Bisulfate (Plavix) 75 mg STK-MED ONCE .ROUTE ; Start 06/09/17 at 15 :51; Stop 06/09/17 at 15:52; Status DC Clopidogrel Bisulfate (Plavix) 600 mg 1X ONCE PO Last administered on 16:00; Start 06/09/17 at 15:45; Stop 06/09/17 at 15:48; Status DC Darbepoetin Joey (Aranesp) 60 mcg Fr SQ Last administered on 06/09/17 20:54; Start 06/09/17 at 21:00 Diphenhydramine HCl (Benadryl) 25 mg 1X PRN PRN IV ITCHING; Start 06/10/17 at 08:30; Stop 06/11/17 at 08:29 Diphenhydramine HCl (Benadryl) 25 mg 1X PRN PRN IV ITCHING; Start 06/10/17 at 08:30; Stop 06/11/17 at 08:29 Fentanyl Citrate (Fentanyl 2ml Vial) 12.5 mcg 1X ONCE IV Last administered on 06/09/17 16:00; Start 06/09/17 at 15:45; Stop 06/09/17 at 15:48; Status DC Fentanyl Citrate (Fentanyl 2ml Vial) 50 mcg PRN Q1HR PRN IV MODERATE OR SEVERE PAIN; Start 06/09/17 at 16:30 Fentanyl Citrate (Fentanyl 2ml Vial) 100 mcg STK-MED ONCE .ROUTE ; Start at 15:02; Stop 06/09/17 at 15:03; Status DC Heparin Sodium/ Sodium Chloride 500 ml @ As Directed STK-MED ONCE .ROUTE ; Start 06/09/17 at 14:36; Stop 06/09/17 at 14:37; Status DC Heparin Sodium/ Sodium Chloride 1,000 unit 1X ONCE IART Last administered on 06/09/17 15:55; Start 06/09/17 at 15:45; Stop 06/09/17 at 15:48; Status DC Info (Do NOT chart on this entry -- for MONITORING) 1 each PRN DAILY PRN MC SEE COMMENTS; Start 06/09/17 at 16:00; Stop 06/11/17 at 15:59 Info (PHARMACY MONITORING -- do not chart) 1 each PRN DAILY PRN MC SEE COMMENTS ; Start 06/10/17 at 08:30 Iodixanol (Visipaque 320) 100 ml STK-MED ONCE .ROUTE ; Start 06/09/17 at 14:36 ; Stop 06/09/17 at 14:37; Status DC Iodixanol (Visipaque 320) 100 ml STK-MED ONCE .ROUTE ; Start 06/09/17 at 15:24 ; Stop 06/09/17 at 15:25; Status DC Iodixanol (Visipaque 320) 154 ml 1X ONCE IART Last administered on 06/09/17 15:55; Start 06/09/17 at 15:45; Stop 06/09/17 at 15:48; Status DC Lidocaine HCl 20 ml 1X ONCE IJ Last administered on 12/22/17at 15:55; Start 06/09/17 at 15:45; Stop 06/09/17 at 15:48; Status DC Lidocaine HCl 20 ml STK-MED ONCE .ROUTE ; Start 06/09/17 at 14:37; Stop at 14:38; Status DC Methylprednisolone Sodium Succinate (SOLU-Medrol 125MG VIAL) 125 mg 1X ONCE IV Last administered on 06/09/17 14:36; Start 06/09/17 at 14:30; Stop at 14:31; Status DC Midazolam HCl (Versed) 0.5 mg 1X ONCE IV Last administered on 06/09/17t 15:54 ; Start 06/09/17 at 15:45; Stop 06/09/17 at 15:48; Status DC Midazolam HCl (Versed) 2 mg STK-MED ONCE .ROUTE ; Start 06/09/17 at 15:02; Stop 06/09/17 at 15:03; Status DC Nitroglycerin (Nitrostat) 0.4 mg PRN Q5MIN PRN SL CHEST PAIN; Start 06/09/17 at 16:30 Sodium Chloride 1,000 ml @ 400 mls/hr Q2H30M PRN IV PATENCY; Start 06/10/17 at 08:25; Stop 06/10/17 at 20:24 Sodium Chloride 1,000 ml @ 1,000 mls/hr Q1H PRN IV hypotension; Start at 08:25; Stop 06/10/17 at 14:24 Sodium Chloride (Normal Saline Flush) 10 ml 1X PRN PRN IV AP catheter pack; Start 06/10/17 at 08:30; Stop 06/11/17 at 08:29 Sodium Chloride (Normal Saline Flush) 10 ml 1X PRN PRN IV CERTIFIED RESPIRATORY THERAPIST catheter pack; Start 06/10/17 at 08:30; Stop 06/11/17 at 08:29 Vitals/I & O Vital Sign - Last 24 Hours 06/09/17 06/09/17 06/09/17 06/09/17 14:45 16:00 16:09 16:30 Temp 98.0 98.0 Pulse 77 Resp 18 16 16 B/P (MAP) 106/58 (74) Pulse Ox 94 98 98 O2 Delivery Nasal Cannula Nasal Cannula Room Air O2 Flow Rate 2.0 2.0 2.0 12/22/17 12/22/17 12/22/17 12/22/17 16:30 19:37 20:00 20:53 Temp 98.0 97.9 98.0 97.9 Pulse 77 89 89 Resp 18 B/P (MAP) 137/87 (104) 118/66 (83) 118/66 Pulse Ox 98 95 O2 Delivery Room Air Nasal Cannula Nasal Cannula O2 Flow Rate 2.0 2.0 2.0 06/09/17 06/10/17 06/10/17 06/10/17 23:00 03:15 07:00 08:00 Temp 98.3 97.6 97.9 98.3 97.6 97.9 Pulse 92 85 75 Resp 18 20 18 B/P (MAP) 147/83 (104) 135/76 (95) 131/67 (88) Pulse Ox 98 95 94 O2 Delivery Nasal Cannula Nasal Cannula Nasal Cannula Nasal Cannula O2 Flow Rate 2.0 2.0 2.0 2.0 06/10/17 10:47 Temp 97.8 97.8 Pulse 79 Resp 18 B/P (MAP) 125/64 (84) Pulse Ox 93 O2 Delivery Nasal Cannula O2 Flow Rate 2.0 Intake and Output 06/09/17 06/09/17 06/10/17 15:00 23:00 07:00 Intake Total 500 ml 836 ml Output Total 300 ml Balance 200 ml 836 ml LAUREL MENDOZA MD Jun 10, 2017 12:53
[2017-06-10 15:00] VITALS: BP 138/74
[2017-06-10] MEDS: FERROUS SULFATE 325 MG TABLET. PO SCH (15:11)
[2017-06-10] MEDS: CLOPIDOGREL BISULFATE 75 MG TABLET PO SCH (15:11)
[2017-06-10] MEDS: cefTRIAXone IV Push 2 GM VIAL. IVP SCH ×2 (15:11→20:18)
[2017-06-10] MEDS: DOCUSATE SODIUM 100 MG CAPSULE. PO SCH (15:12)
[2017-06-10] MEDS: ACETYLCYSTEINE 20% ORAL SOLN 600 MG/3 ML SYRINGE. PO SCH ×2 (15:12→20:21)
[2017-06-10] MEDS: ASPIRIN ENTERIC COATED 325 MG TABLET.DR. PO SCH (15:12)
[2017-06-10] MEDS: METOPROLOL TART IMMED RELEASE 25 MG TABLET. PO SCH ×2 (15:12→20:17)
[2017-06-10] MEDS: LACTOBACILLUS RHAMNOSUS GG 1 CAPSULE. PO SCH ×2 (15:18→20:17)
--- NOTE | 2017-06-10 15:51 | PDOC ---
PROGRESS NOTES Chief Complaint Chief Complaint Severe cardiomyopathy with EF 20%, severe global hypokinesis sepsis, severe sepsis, Cough, fevers, tachycardia, ASHLEY on CKD, probable ATN anemia of chronic disease, Overweight BMI 29 Gram positive bacteremia (GPC in chains, likely strep) Diabetes type 2, Pacemaker/AICD in situ NSTEMI, 2 demand dyslipidemia Right shoulder pain, musculoskeletal Thrombocytopenia, History of Present Illness History of Present Illness noted severe cardiomyopathy with an EF less than 20%, and NSTEMI based on cardiac enzymes, AK I on CKD, and thrombocytopenia 80s Essentially lots of comorbidities with overall prognosis is poor. S s/p LHC HD today, very lethargic, needs PT and OT Overall prognosis of this patient is rather poor and guarded. Low EF 20%, DM 2, uncontrolled with elevated hemoglobin A1c few months ago, and now ASHLEY Vitals Vitals Vital Signs Date Time Temp Pulse Resp B/P (MAP) Pulse Ox O2 Delivery O2 Flow Rate FiO2 06/10/17 15:12 79 125/64 06/10/17 10:47 97.8 18 93 Nasal Cannula 2.0 97.8 Physical Exam General: Alert, No acute distress Heart: Regular rate (Paced), Other (3/6/systolic murmur to LLS border) Lungs: Clear, Other Abdomen: Soft Extremities: No cyanosis, No edema Skin: No breakdown, No significant lesion Labs LABS Laboratory Tests Test 06/09/17 17:19 06/09/17 20:21 06/10/17 03:25 06/10/17 07:40 Glucose (Fingerstick) 172 mg/dL (70-99) 245 mg/dL (70-99) 247 mg/dL (70-99) White Blood Count 8.9 x10^3/uL (4.0-11.0) Red Blood Count 3.16 x10^6/uL (3.50-5.40) Hemoglobin 8.5 g/dL (12.0-15.5) Hematocrit 26.1 % (36.0-47.0) Mean Corpuscular Volume 83 fL (79-100) Mean Corpuscular Hemoglobin 27 pg (25-35) Mean Corpuscular Hemoglobin Concent 33 g/dL (31-37) Red Cell Distribution Width 17.6 % (11.5-14.5) Platelet Count 122 x10^3/uL (140-400) Neutrophils (%) (Auto) 83 % (31-73) Lymphocytes (%) (Auto) 8 % (24-48) Monocytes (%) (Auto) 9 % (0-9) Eosinophils (%) (Auto) 0 % (0-3) Basophils (%) (Auto) 0 % (0-3) Neutrophils # (Auto) 7.3 x10^3uL (1.8-7.7) Lymphocytes # (Auto) 0.7 x10^3/uL (1.0-4.8) Monocytes # (Auto) 0.8 x10^3/uL (0.0-1.1) Eosinophils # (Auto) 0.0 x10^3/uL (0.0-0.7) Basophils # (Auto) 0.0 x10^3/uL (0.0-0.2) Sodium Level 132 mmol/L (136-145) Potassium Level 4.1 mmol/L (3.5-5.1) Chloride Level 99 mmol/L (98-107) Carbon Dioxide Level 21 mmol/L (21-32) Anion Gap 12 (6-14) Blood Urea Nitrogen 70 mg/dL (7-20) Creatinine 3.1 mg/dL (0.6-1.0) Estimated GFR (Cockcroft-Gault) 18.5 Glucose Level 260 mg/dL (70-99) Calcium Level 8.5 mg/dL (8.5-10.1) Phosphorus Level 4.8 mg/dL (2.6-4.7) Magnesium Level 2.1 mg/dL (1.8-2.4) Albumin 2.1 g/dL (3.4-5.0) Test 06/10/17 11:07 Glucose (Fingerstick) 258 mg/dL (70-99) Review of Systems Review of Systems no n.v/d tired, not very talkative Assessment and Plan Assessmemt and Plan Problems Medical Problems: (1) Congestive heart disease Status: Acute (2) Elevated troponin Status: Acute (3) Pneumonia Status: Acute (4) Sepsis Status: Acute Problems: Comment Review of Relevant I have reviewed the following items bro (where applicable) has been applied. Labs Laboratory Tests Test 06/08/17 16:44 06/08/17 21:40 06/08/17 21:49 06/09/17 06:30 Glucose (Fingerstick) 145 mg/dL (70-99) 235 mg/dL (70-99) Heparin Anti-Xa Act, Unfractionated 0.22 IU/mL (0.30-0.70) 0.29 IU/mL (0.30-0.70) White Blood Count 10.5 x10^3/uL (4.0-11.0) Red Blood Count 3.42 x10^6/uL (3.50-5.40) Hemoglobin 9.1 g/dL (12.0-15.5) Hematocrit 28.1 % (36.0-47.0) Mean Corpuscular Volume 82 fL (79-100) Mean Corpuscular Hemoglobin 27 pg (25-35) Mean Corpuscular Hemoglobin Concent 32 g/dL (31-37) Red Cell Distribution Width 18.2 % (11.5-14.5) Platelet Count 114 x10^3/uL (140-400) Neutrophils (%) (Auto) 90 % (31-73) Lymphocytes (%) (Auto) 6 % (24-48) Monocytes (%) (Auto) 4 % (0-9) Eosinophils (%) (Auto) 0 % (0-3) Basophils (%) (Auto) 0 % (0-3) Neutrophils # (Auto) 9.4 x10^3uL (1.8-7.7) Lymphocytes # (Auto) 0.7 x10^3/uL (1.0-4.8) Monocytes # (Auto) 0.4 x10^3/uL (0.0-1.1) Eosinophils # (Auto) 0.0 x10^3/uL (0.0-0.7) Basophils # (Auto) 0.0 x10^3/uL (0.0-0.2) Sodium Level 132 mmol/L (136-145) Potassium Level 4.4 mmol/L (3.5-5.1) Chloride Level 99 mmol/L (98-107) Carbon Dioxide Level 21 mmol/L (21-32) Anion Gap 12 (6-14) Blood Urea Nitrogen 64 mg/dL (7-20) Creatinine 3.2 mg/dL (0.6-1.0) Estimated GFR (Cockcroft-Gault) 17.9 Glucose Level 218 mg/dL (70-99) Calcium Level 8.8 mg/dL (8.5-10.1) Phosphorus Level 4.4 mg/dL (2.6-4.7) Magnesium Level 2.1 mg/dL (1.8-2.4) Albumin 2.3 g/dL (3.4-5.0) Vitamin B12 Level 1751 pg/mL (247-911) Serum Folate 7.53 ng/ml (3.2-20.0) Test 06/09/17 07:52 06/09/17 11:44 06/09/17 17:19 06/09/17 20:21 Glucose (Fingerstick) 204 mg/dL (70-99) 190 mg/dL (70-99) 172 mg/dL (70-99) 245 mg/dL (70-99) Test 06/10/17 03:25 06/10/17 07:40 06/10/17 11:07 White Blood Count 8.9 x10^3/uL (4.0-11.0) Red Blood Count 3.16 x10^6/uL (3.50-5.40) Hemoglobin 8.5 g/dL (12.0-15.5) Hematocrit 26.1 % (36.0-47.0) Mean Corpuscular Volume 83 fL (79-100) Mean Corpuscular Hemoglobin 27 pg (25-35) Mean Corpuscular Hemoglobin Concent 33 g/dL (31-37) Red Cell Distribution Width 17.6 % (11.5-14.5) Platelet Count 122 x10^3/uL (140-400) Neutrophils (%) (Auto) 83 % (31-73) Lymphocytes (%) (Auto) 8 % (24-48) Monocytes (%) (Auto) 9 % (0-9) Eosinophils (%) (Auto) 0 % (0-3) Basophils (%) (Auto) 0 % (0-3) Neutrophils # (Auto) 7.3 x10^3uL (1.8-7.7) Lymphocytes # (Auto) 0.7 x10^3/uL (1.0-4.8) Monocytes # (Auto) 0.8 x10^3/uL (0.0-1.1) Eosinophils # (Auto) 0.0 x10^3/uL (0.0-0.7) Basophils # (Auto) 0.0 x10^3/uL (0.0-0.2) Sodium Level 132 mmol/L (136-145) Potassium Level 4.1 mmol/L (3.5-5.1) Chloride Level 99 mmol/L (98-107) Carbon Dioxide Level 21 mmol/L (21-32) Anion Gap 12 (6-14) Blood Urea Nitrogen 70 mg/dL (7-20) Creatinine 3.1 mg/dL (0.6-1.0) Estimated GFR (Cockcroft-Gault) 18.5 Glucose Level 260 mg/dL (70-99) Calcium Level 8.5 mg/dL (8.5-10.1) Phosphorus Level 4.8 mg/dL (2.6-4.7) Magnesium Level 2.1 mg/dL (1.8-2.4) Albumin 2.1 g/dL (3.4-5.0) Glucose (Fingerstick) 247 mg/dL (70-99) 258 mg/dL (70-99) Laboratory Tests Test 06/09/17 17:19 06/09/17 20:21 06/10/17 03:25 06/10/17 07:40 Glucose (Fingerstick) 172 mg/dL (70-99) 245 mg/dL (70-99) 247 mg/dL (70-99) White Blood Count 8.9 x10^3/uL (4.0-11.0) Red Blood Count 3.16 x10^6/uL (3.50-5.40) Hemoglobin 8.5 g/dL (12.0-15.5) Hematocrit 26.1 % (36.0-47.0) Mean Corpuscular Volume 83 fL (79-100) Mean Corpuscular Hemoglobin 27 pg (25-35) Mean Corpuscular Hemoglobin Concent 33 g/dL (31-37) Red Cell Distribution Width 17.6 % (11.5-14.5) Platelet Count 122 x10^3/uL (140-400) Neutrophils (%) (Auto) 83 % (31-73) Lymphocytes (%) (Auto) 8 % (24-48) Monocytes (%) (Auto) 9 % (0-9) Eosinophils (%) (Auto) 0 % (0-3) Basophils (%) (Auto) 0 % (0-3) Neutrophils # (Auto) 7.3 x10^3uL (1.8-7.7) Lymphocytes # (Auto) 0.7 x10^3/uL (1.0-4.8) Monocytes # (Auto) 0.8 x10^3/uL (0.0-1.1) Eosinophils # (Auto) 0.0 x10^3/uL (0.0-0.7) Basophils # (Auto) 0.0 x10^3/uL (0.0-0.2) Sodium Level 132 mmol/L (136-145) Potassium Level 4.1 mmol/L (3.5-5.1) Chloride Level 99 mmol/L (98-107) Carbon Dioxide Level 21 mmol/L (21-32) Anion Gap 12 (6-14) Blood Urea Nitrogen 70 mg/dL (7-20) Creatinine 3.1 mg/dL (0.6-1.0) Estimated GFR (Cockcroft-Gault) 18.5 Glucose Level 260 mg/dL (70-99) Calcium Level 8.5 mg/dL (8.5-10.1) Phosphorus Level 4.8 mg/dL (2.6-4.7) Magnesium Level 2.1 mg/dL (1.8-2.4) Albumin 2.1 g/dL (3.4-5.0) Test 06/10/17 11:07 Glucose (Fingerstick) 258 mg/dL (70-99) Microbiology 06/06/17 Blood Culture - Preliminary, Resulted NO GROWTH AFTER 4 DAYS 06/07/17 - Final, Complete 06/07/17 - Final, Complete 06/07/17 - Final, Complete 06/07/17 Gram Stain Evaluation - Final, Complete 06/07/17 Sputum Culture - Final, Complete 06/07/17 Sputum Result 1 - Final, Complete 06/07/17 Sputum Result 2 - Final, Complete 06/06/17 Urine Culture - Final, Complete 06/06/17 Urine Culture Result 1 (TANJA) - Final, Complete Medications Current Medications Ondansetron HCl (Zofran) 8 mg 1X ONCE IV Last administered on 06/05/17t 18:36 ; Start 06/05/17 at 18:30; Stop 06/05/17 at 18:31; Status DC Aspirin (Children'S Aspirin) 324 mg 1X ONCE PO Last administered on 19:48; Start 06/05/17 at 19:45; Stop 06/05/17 at 19:46; Status DC Sodium Chloride 1,000 ml @ 1,000 mls/hr 1X ONCE IV Last administered on 06/05 20:12; Start 06/05/17 at 20:00; Stop 06/05/17 at 20:59; Status DC Cefepime HCl 2 gm/ Dextrose 100 ml @ 200 mls/hr 1X ONCE IV ; Start 06/05/17 at 20:00; Stop 06/05/17 at 20:04; Status DC Cefepime HCl (Maxipime) 2 gm Q12HR IVP Last administered on 06/08/17 09:02; Start 06/05/17 at 21:00; Stop 06/08/17 at 09:21; Status DC Ondansetron HCl (Zofran) 4 mg PRN Q8HRS PRN IV NAUSEA/VOMITING; Start at 20:15; Stop 06/06/17 at 08:52; Status DC Sodium Chloride 1,000 ml @ 75 mls/hr [id number] IV Last administered on 10:30; Start 06/05/17 at 20:06; Stop 06/06/17 at 20:05; Status DC Albuterol/ Ipratropium (Duoneb) 3 ml RTQID NEB ; Start 06/06/17 at 08:00; Stop 06/07/17 at 07:59; Status DC Acetaminophen (Tylenol) 650 mg PRN Q6HRS PRN PO fever Last administered on 16:33; Start 06/05/17 at 20:15; Stop 06/09/17 at 16:31; Status DC Vancomycin HCl (Vanco Per Pharmacy) 1 each PRN DAILY PRN MC SEE COMMENTS Last administered on 06/06/17 15:14; Start 06/05/17 at 20:15; Stop 06/07/17 at 09 :14; Status DC Acetaminophen (Tylenol) 1,000 mg 1X ONCE PO Last administered on 06/05/17 20 :17; Start 06/05/17 at 20:15; Stop 06/05/17 at 20:21; Status DC Vancomycin HCl 2 gm/Dextrose/ Sodium Chloride 500 ml @ 250 mls/hr 1X ONCE IV Last administered on 06/05/17 21:45; Start 06/05/17 at 21:00; Stop 06/05/17 at 22:59; Status DC Vancomycin HCl 1.25 gm/Sodium Chloride 250 ml @ 167 mls/hr Q24H IV ; Start at 22:00; Stop 06/06/17 at 22:00; Status DC Vancomycin HCl 1 each 1X ONCE MC ; Start 06/07/17 at 20:00; Stop 06/07/17 at 20:00; Status DC Norepinephrine Bitartrate 250 ml @ 0 mls/hr CONT PRN IV SEE I/O RECORD Last administered on 06/05/17 23:13; Start 06/05/17 at 22:45; Stop 06/10/17 at 13 :22; Status DC Magnesium Sulfate/ Dextrose 50 ml @ 25 mls/hr PRN DAILY PRN IV for Mag < 1.7 on am labs Last administered on 06/06/17 12:40; Start 06/06/17 at 08:30 Ondansetron HCl (Zofran) 4 mg PRN Q6HRS PRN IV NAUSEA/VOMITING; Start at 09:00; Stop 06/07/17 at 08:59; Status DC Guaifenesin (Robitussin Dm) 10 ml QID PO Last administered on 06/10/17 15:11 ; Start 06/06/17 at 09:00 Heparin Sodium (Porcine) (Heparin Sodium) 4,000 unit 1X ONCE IV Last administered on 06/06/17 10:19; Start 06/06/17 at 09:15; Stop 06/06/17 at 09 :21; Status DC Heparin Sodium/ Dextrose 500 ml @ 0 mls/hr CONT PRN IV SEE I/O RECORD Last administered on 06/08/17 16:49; Start 06/06/17 at 09:15; Stop 06/10/17 at 13 :25; Status DC Heparin Sodium (Porcine) (Heparin Sodium) 2,000 unit PRN Q6HRS PRN IV FOR UFH LEVEL LESS THAN 0.2; Start 06/06/17 at 09:15; Stop 06/10/17 at 13:25; Status DC Furosemide (Lasix) 40 mg 1X ONCE IVP Last administered on 06/06/17 10:09; Start 06/06/17 at 10:00; Stop 06/06/17 at 10:01; Status DC Aspirin (Ecotrin) 81 mg DAILYWBKFT PO Last administered on 06/09/17 08:46; Start 06/07/17 at 08:00; Stop 06/10/17 at 09:36; Status DC Lactobacillus Rhamnosus (Culturelle) 1 cap BID PO Last administered on 15:18; Start 06/06/17 at 21:00 Acetaminophen/ Hydrocodone Bitart (Lortab 5/325) 1 tab PRN Q6HRS PRN PO PAIN Last administered on 06/08/17 21:47; Start 06/06/17 at 20:30 Capsaicin (Zostrix) 1 nelson TID TP Last administered on 06/10/17 15:11; Start 06/06/17 at 21:00 Benzonatate (Tessalon Perle) 100 mg TID PO Last administered on 06/10/17 15: 12; Start 06/07/17 at 04:00 Magnesium Sulfate/ Dextrose 50 ml @ 25 mls/hr 1X ONCE IV Last administered on 06/07/17 08:55; Start 06/07/17 at 09:00; Stop 06/07/17 at 10:59; Status DC Docusate Sodium (Colace) 100 mg DAILY PO Last administered on 06/10/17 15:12 ; Start 06/07/17 at 10:30 Metoprolol Tartrate (Lopressor) 12.5 mg BID PO Last administered on 06/10/17 15:12; Start 06/07/17 at 13:30 Info (Anti-Coagulation Monitoring By Pharmacy) 1 each PRN DAILY PRN MC SEE COMMENTS Last administered on 06/08/17 14:20; Start 06/08/17 at 08:00; Stop 06/10/17 at 13:25; Status DC Ondansetron HCl (Zofran) 4 mg PRN Q6HRS PRN IV NAUSEA/VOMITING 1ST CHOICE; Start 06/08/17 at 09:00 Ceftriaxone Sodium 2 gm/ Dextrose 100 ml @ 200 mls/hr Q12HR IV ; Start at 21:00; Status UNV Levofloxacin (Levaquin) 250 mg 1X ONCE PO ; Start 06/08/17 at 09:30; Stop at 09:30; Status DC Ceftriaxone Sodium (Rocephin) 2 gm Q12HR IVP Last administered on 06/10/17 15 :11; Start 06/08/17 at 10:00 Insulin Detemir (Levemir) 10 units QHS SQ Last administered on 06/09/17 21:13 ; Start 06/08/17 at 21:00 Insulin Aspart (NovoLOG) 0-9 UNITS TIDWMEALS SQ Last administered on 09:21; Start 06/08/17 at 12:00 Dextrose (Dextrose 50%-Water Syringe) 12.5 gm PRN Q15MIN PRN IV SEE COMMENTS; Start 06/08/17 at 09:45 Ferrous Sulfate (Feosol) 325 mg DAILYWBKFT PO Last administered on 06/10/17 15:11; Start 06/08/17 at 11:30 Prednisone (Prednisone) 50 mg TID@0700,1500,2300 PO Last administered on 06:27; Start 06/08/17 at 15:00; Stop 06/09/17 at 07:01; Status DC Diphenhydramine HCl (Benadryl) 50 mg 1X ONCE PO Last administered on 14:35; Start 06/09/17 at 07:00; Stop 06/09/17 at 07:01; Status DC Famotidine (Pepcid) 20 mg 1X ONCE PO Last administered on 06/09/17 14:35; Start 06/09/17 at 07:00; Stop 06/09/17 at 07:01; Status DC Sodium Chloride 1,000 ml @ 60 mls/hr [id number] IV Last administered on 09:16; Start 06/08/17 at 20:00 Methylprednisolone Sodium Succinate (SOLU-Medrol 125MG VIAL) 125 mg 1X ONCE IV ; Start 06/09/17 at 08:00; Stop 06/09/17 at 08:01; Status Cancel Diphenhydramine HCl (Benadryl) 50 mg 1X ONCE IVP ; Start 06/09/17 at 08:00; Stop 06/09/17 at 08:01; Status DC Acetylcysteine (Mucomyst 20% Oral Solution) 600 mg BID PO Last administered on 06/10/17 15:12; Start 06/09/17 at 08:00; Stop 06/11/17 at 07:59 Acetaminophen (Tylenol) 650 mg 1X ONCE PO Last administered on 06/09/17 14: 35; Start 06/09/17 at 08:00; Stop 06/09/17 at 08:01; Status DC Lidocaine/Sodium Bicarbonate (Buffered Lidocaine 1%) 3 ml STK-MED ONCE IJ ; Start 06/09/17 at 08:16; Stop 06/09/17 at 08:17; Status DC Heparin Sodium (Porcine) (Heparin Sodium) 10,000 unit STK-MED ONCE .ROUTE ; Start 06/09/17 at 08:16; Stop 06/09/17 at 08:17; Status DC Lidocaine/Sodium Bicarbonate (Buffered Lidocaine 1%) 6 ml 1X ONCE IJ Last administered on 06/09/17 09:25; Start 06/09/17 at 09:30; Stop 06/09/17 at 09 :31; Status DC Heparin Sodium (Porcine) (Heparin Sodium) 2,500 unit 1X ONCE INT CAT Last administered on 06/09/17 09:25; Start 06/09/17 at 09:30; Stop 06/09/17 at 09 :31; Status DC Methylprednisolone Sodium Succinate (SOLU-Medrol 125MG VIAL) 125 mg 1X ONCE IV Last administered on 06/09/17 14:36; Start 06/09/17 at 14:30; Stop at 14:31; Status DC Heparin Sodium/ Sodium Chloride 500 ml @ As Directed STK-MED ONCE .ROUTE ; Start 06/09/17 at 14:36; Stop 06/09/17 at 14:37; Status DC Iodixanol (Visipaque 320) 100 ml STK-MED ONCE .ROUTE ; Start 06/09/17 at 14:36 ; Stop 06/09/17 at 14:37; Status DC Lidocaine HCl 20 ml STK-MED ONCE .ROUTE ; Start 06/09/17 at 14:37; Stop at 14:38; Status DC Darbepoetin Joey (Aranesp) 60 mcg Fr SQ Last administered on 06/09/17 20:54; Start 06/09/17 at 21:00 Fentanyl Citrate (Fentanyl 2ml Vial) 100 mcg STK-MED ONCE .ROUTE ; Start at 15:02; Stop 06/09/17 at 15:03; Status DC Midazolam HCl (Versed) 2 mg STK-MED ONCE .ROUTE ; Start 06/09/17 at 15:02; Stop 06/09/17 at 15:03; Status DC Bivalirudin (Angiomax) 250 mg STK-MED ONCE IV ; Start 06/09/17 at 15:19; Stop 06/09/17 at 15:20; Status DC Iodixanol (Visipaque 320) 100 ml STK-MED ONCE .ROUTE ; Start 06/09/17 at 15:24 ; Stop 06/09/17 at 15:25; Status DC Clopidogrel Bisulfate (Plavix) 75 mg STK-MED ONCE .ROUTE ; Start 06/09/17 at 15 :37; Stop 06/09/17 at 15:38; Status DC Heparin Sodium/ Sodium Chloride 1,000 unit 1X ONCE IART Last administered on 06/09/17 15:55; Start 06/09/17 at 15:45; Stop 06/09/17 at 15:48; Status DC Midazolam HCl (Versed) 0.5 mg 1X ONCE IV Last administered on 06/09/17 15:54 ; Start 06/09/17 at 15:45; Stop 06/09/17 at 15:48; Status DC Fentanyl Citrate (Fentanyl 2ml Vial) 12.5 mcg 1X ONCE IV Last administered on 06/09/17 16:00; Start 06/09/17 at 15:45; Stop 06/09/17 at 15:48; Status DC Iodixanol (Visipaque 320) 154 ml 1X ONCE IART Last administered on 06/09/17 15:55; Start 06/09/17 at 15:45; Stop 06/09/17 at 15:48; Status DC Bivalirudin (Angiomax) 250 mg 1X ONCE IV Last administered on 06/09/17 15:59 ; Start 06/09/17 at 15:45; Stop 06/09/17 at 15:48; Status DC Clopidogrel Bisulfate (Plavix) 600 mg 1X ONCE PO Last administered on 16:00; Start 06/09/17 at 15:45; Stop 06/09/17 at 15:48; Status DC Lidocaine HCl 20 ml 1X ONCE IJ Last administered on 06/09/17 15:55; Start 06/09/17 at 15:45; Stop 06/09/17 at 15:48; Status DC Info (Do NOT chart on this entry -- for MONITORING) 1 each PRN DAILY PRN MC SEE COMMENTS; Start 06/09/17 at 16:00; Stop 06/11/17 at 15:59 Clopidogrel Bisulfate (Plavix) 75 mg STK-MED ONCE .ROUTE ; Start 06/09/17 at 15 :51; Stop 06/09/17 at 15:52; Status DC Aspirin (Children'S Aspirin) 244 mg 1X ONCE PO Last administered on 16:03; Start 06/09/17 at 16:15; Stop 06/09/17 at 16:16; Status DC Aspirin (Ecotrin) 325 mg DAILYWBKFT PO Last administered on 06/10/17 15:12; Start 06/10/17 at 08:00 Clopidogrel Bisulfate (Plavix) 75 mg DAILYWBKFT PO Last administered on 15:11; Start 06/10/17 at 08:00 Atorvastatin Calcium (Lipitor) 40 mg QHS PO Last administered on 06/09/17 20: 53; Start 06/09/17 at 21:00 Acetaminophen (Tylenol) 650 mg PRN Q6HRS PRN PO MILD PAIN / TEMP; Start at 16:30 Fentanyl Citrate (Fentanyl 2ml Vial) 50 mcg PRN Q1HR PRN IV MODERATE OR SEVERE PAIN; Start 06/09/17 at 16:30 Nitroglycerin (Nitrostat) 0.4 mg PRN Q5MIN PRN SL CHEST PAIN; Start 06/09/17 at 16:30 Sodium Chloride 1,000 ml @ 1,000 mls/hr Q1H PRN IV hypotension; Start at 08:25; Stop 06/10/17 at 14:24; Status DC Diphenhydramine HCl (Benadryl) 25 mg 1X PRN PRN IV ITCHING; Start 06/10/17 at 08:30; Stop 06/11/17 at 08:29 Diphenhydramine HCl (Benadryl) 25 mg 1X PRN PRN IV ITCHING; Start 06/10/17 at 08:30; Stop 06/11/17 at 08:29 Sodium Chloride (Normal Saline Flush) 10 ml 1X PRN PRN IV AP catheter pack; Start 06/10/17 at 08:30; Stop 06/11/17 at 08:29 Sodium Chloride (Normal Saline Flush) 10 ml 1X PRN PRN IV TOOTH INSPECTOR catheter pack; Start 06/10/17 at 08:30; Stop 06/11/17 at 08:29 Sodium Chloride 1,000 ml @ 400 mls/hr Q2H30M PRN IV PATENCY; Start 06/10/17 at 08:25; Stop 06/10/17 at 20:24 Info (PHARMACY MONITORING -- do not chart) 1 each PRN DAILY PRN MC SEE COMMENTS ; Start 06/10/17 at 08:30 Active Scripts Active Cyclobenzaprine Hcl 10 Mg Tablet 1 Tab PO QHS Reported Coreg (Carvedilol) 6.25 Mg Tablet 1.5 Tab PO BID Entresto 49 mg-51 mg Tablet (Sacubitril/Valsartan) 1 Each Tablet 1 Each PO BID Atorvastatin Calcium 40 Mg Tablet 40 Mg PO HS Miralax (Polyethylene Glycol 3350) 17 Gm Powd.pack 1 Packet PO PRN DAILY PRN Colace (Docusate Sodium) 100 Mg Capsule 1 Cap PO DAILY Furosemide 20 Mg Tablet 40 Mg PO DAILY Gabapentin 300 Mg Capsule 600 Mg PO PRN TID PRN Vitamin B-12 (Cyanocobalamin (Vitamin B-12)) 1,000 Mcg Tablet 500 Mcg PO DAILY Lantus Solostar (Insulin Glargine,Hum.rec.anlog) 100 Unit/1 Ml Insuln.pen 25 Unit SQ QHS Novolog (Insulin Aspart) 100 Unit/1 Ml Cartridge 3 Unit SQ TIDAC Aspirin 81 Mg Tab.chew 81 Mg PO DAILY Metformin Hcl 500 Mg Tablet 1,000 Mg PO BID Vitals/I & O Vital Sign - Last 24 Hours 06/09/17 06/09/17 06/09/17 06/09/17 16:00 16:09 16:30 16:30 Temp 98.0 98.0 Pulse 77 Resp 16 16 B/P (MAP) 137/87 (104) Pulse Ox 98 98 98 O2 Delivery Nasal Cannula Room Air Room Air O2 Flow Rate 2.0 2.0 2.0 06/09/17 06/09/17 06/09/17 06/09/17 19:37 20:00 20:53 23:00 Temp 97.9 98.3 97.9 98.3 Pulse 89 89 92 Resp 18 18 B/P (MAP) 118/66 (83) 118/66 147/83 (104) Pulse Ox 95 98 O2 Delivery Nasal Cannula Nasal Cannula Nasal Cannula O2 Flow Rate 2.0 2.0 2.0 06/10/17 06/10/17 06/10/17 06/10/17 03:15 07:00 08:00 10:47 Temp 97.6 97.9 97.8 97.6 97.9 97.8 Pulse 85 75 79 Resp 20 18 18 B/P (MAP) 135/76 (95) 131/67 (88) 125/64 (84) Pulse Ox 95 94 93 O2 Delivery Nasal Cannula Nasal Cannula Nasal Cannula Nasal Cannula O2 Flow Rate 2.0 2.0 2.0 2.0 06/10/17 15:12 Pulse 79 B/P (MAP) 125/64 Intake and Output 06/09/17 06/09/17 06/10/17 15:00 23:00 07:00 Intake Total 500 ml 836 ml Output Total 300 ml Balance 200 ml 836 ml Nutrition Consultation Dietary Evaluation: Recommendations by RD: Increase Calorie Intake Comments: REC Cardiac/ADA diet Expected Outcomes/Goals: Diet advancement within 24 - 48 hrs - met, new goal established New goal: PO intake to meet > 75% est needs Interpretation of weight loss: >5% in 1 month Malnutrition Findings: Food and Nutrition Intake (Mod: <75% est energy req 7days Weight Status: Overweight ROLDAN FRANCISCO MD Jun 10, 2017 15:51
[2017-06-10 19:38] VITALS: BP 125/58
[2017-06-10] MEDS: ATORVASTATIN CALCIUM 20 MG TABLET PO SCH (20:17)
[2017-06-10] MEDS: INSULIN DETEMIR 300 UNITS/3 ML INSULN.PEN. SQ SCH (20:42)
[2017-06-10 23:40] VITALS: BP 140/68
[2017-06-11 03:18] VITALS: BP 137/73
[2017-06-11 04:30] LABS: HEMATOCRIT 23.7 % (36.0-47.0); HEMOGLOBIN 7.8 g/dL (12.0-15.5); RED BLOOD COUNT 2.9 x10^6/uL (3.50-5.40); RED CELL DISTRIBUTION WIDTH 17.5 % (11.5-14.5); WHITE BLOOD COUNT 10.1 x10^3/uL (4.0-11.0)
[2017-06-11] MEDS: IV NORMAL SALINE 1000ML BAG 1,000 ML IV SCH ×2 (06:14→14:40)
[2017-06-11 06:35] LABS: ALBUMIN 1.9 g/dL (3.4-5.0); CALCIUM 8.2 mg/dL (8.5-10.1); CREATININE 2.3 mg/dL (0.6-1.0); GFR 26.2; PHOSPHORUS 2.4 mg/dL (2.6-4.7); POTASSIUM 3.2 mmol/L (3.5-5.1)
[2017-06-11 07:00] VITALS: BP 141/65
[2017-06-11] MEDS: INSULIN ASPART 300 UNITS/3 ML INSULN.PEN SQ SCH ×3 (08:00→17:00)
[2017-06-11] MEDS ORDERED: IV NORMAL SALINE 1000ML BAG 1,000 ML IV PRN ×2 (08:47)
[2017-06-11] MEDS ORDERED: diphenhydrAMINE 50 MG/ML VIAL IV PRN ×2 (09:00)
[2017-06-11] MEDS ORDERED: 0.9 % SODIUM CHLORIDE 10 ML DISP.SYRIN. IV PRN ×2 (09:00)
[2017-06-11] MEDS: CAPSAICIN 0.025% TOPICAL CREAM 60GM TUBE. TP SCH ×3 (09:00→20:33)
[2017-06-11] MEDS ORDERED: DIALYSIS PATIENT. MC PRN (09:00)
--- NOTE | 2017-06-11 09:36 | PDOC ---
Dialysis Progress Note Dialysis Note Dialysis Note Seen on Hemodialysis, tolerating treatment Well for now Vitals on Hemodialysis: 152/71 85 afeb General Appearance: Awake: Alert Oriented x 2 Neck: No JVD or JVP Chest: CTA Colt Heart: S1 S2 - + Murmur Abdomen - Soft NTND Extremities - tr Edema ESRD vs ARF/ ATN + CKD IV (currently oligoanuric) : Dialysis as below F 180 NR 3.0 Hrs 4 K 2.5 Ca 140 Na 35 HC03 Qb 350 + Qd 500+ Heparin 0 Units Uf 0-1 Kgs or to dry weight as tolerated May give 25-50 gms of 25% Albumin if needed to maintain Hemodynamic stability Treatment plan reviewed and discussed with fish filleter Vitals Vital Signs Vital Signs Date Time Temp Pulse Resp B/P (MAP) Pulse Ox O2 Delivery O2 Flow Rate FiO2 06/11/17 08:05 Nasal Cannula 2.0 06/11/17 07:00 97.8 78 18 141/65 (90) 99 97.8 Labs Last Labs Laboratory Tests Test 06/09/17 11:44 06/09/17 17:19 06/09/17 20:21 06/10/17 03:25 Glucose (Fingerstick) 190 mg/dL (70-99) 172 mg/dL (70-99) 245 mg/dL (70-99) White Blood Count 8.9 x10^3/uL (4.0-11.0) Red Blood Count 3.16 x10^6/uL (3.50-5.40) Hemoglobin 8.5 g/dL (12.0-15.5) Hematocrit 26.1 % (36.0-47.0) Mean Corpuscular Volume 83 fL (79-100) Mean Corpuscular Hemoglobin 27 pg (25-35) Mean Corpuscular Hemoglobin Concent 33 g/dL (31-37) Red Cell Distribution Width 17.6 % (11.5-14.5) Platelet Count 122 x10^3/uL (140-400) Neutrophils (%) (Auto) 83 % (31-73) Lymphocytes (%) (Auto) 8 % (24-48) Monocytes (%) (Auto) 9 % (0-9) Eosinophils (%) (Auto) 0 % (0-3) Basophils (%) (Auto) 0 % (0-3) Neutrophils # (Auto) 7.3 x10^3uL (1.8-7.7) Lymphocytes # (Auto) 0.7 x10^3/uL (1.0-4.8) Monocytes # (Auto) 0.8 x10^3/uL (0.0-1.1) Eosinophils # (Auto) 0.0 x10^3/uL (0.0-0.7) Basophils # (Auto) 0.0 x10^3/uL (0.0-0.2) Sodium Level 132 mmol/L (136-145) Potassium Level 4.1 mmol/L (3.5-5.1) Chloride Level 99 mmol/L (98-107) Carbon Dioxide Level 21 mmol/L (21-32) Anion Gap 12 (6-14) Blood Urea Nitrogen 70 mg/dL (7-20) Creatinine 3.1 mg/dL (0.6-1.0) Estimated GFR (Cockcroft-Gault) 18.5 Glucose Level 260 mg/dL (70-99) Calcium Level 8.5 mg/dL (8.5-10.1) Phosphorus Level 4.8 mg/dL (2.6-4.7) Magnesium Level 2.1 mg/dL (1.8-2.4) Albumin 2.1 g/dL (3.4-5.0) Test 06/10/17 07:40 06/10/17 11:07 06/10/17 16:27 06/10/17 20:41 Glucose (Fingerstick) 247 mg/dL (70-99) 258 mg/dL (70-99) 193 mg/dL (70-99) 206 mg/dL (70-99) Test 06/11/17 03:00 06/11/17 03:30 06/11/17 07:34 Sodium Level 136 mmol/L (136-145) Potassium Level 3.2 mmol/L (3.5-5.1) Chloride Level 102 mmol/L (98-107) Carbon Dioxide Level 25 mmol/L (21-32) Anion Gap 9 (6-14) Blood Urea Nitrogen 43 mg/dL (7-20) Creatinine 2.3 mg/dL (0.6-1.0) Estimated GFR (Cockcroft-Gault) 26.2 Glucose Level 176 mg/dL (70-99) Calcium Level 8.2 mg/dL (8.5-10.1) Phosphorus Level 2.4 mg/dL (2.6-4.7) Albumin 1.9 g/dL (3.4-5.0) White Blood Count 10.1 x10^3/uL (4.0-11.0) Red Blood Count 2.90 x10^6/uL (3.50-5.40) Hemoglobin 7.8 g/dL (12.0-15.5) Hematocrit 23.7 % (36.0-47.0) Mean Corpuscular Volume 82 fL (79-100) Mean Corpuscular Hemoglobin 27 pg (25-35) Mean Corpuscular Hemoglobin Concent 33 g/dL (31-37) Red Cell Distribution Width 17.5 % (11.5-14.5) Platelet Count 122 x10^3/uL (140-400) Magnesium Level 1.9 mg/dL (1.8-2.4) Glucose (Fingerstick) 136 mg/dL (70-99) Laboratory Tests Test 06/10/17 11:07 06/10/17 16:27 06/10/17 20:41 06/11/17 03:00 Glucose (Fingerstick) 258 mg/dL (70-99) 193 mg/dL (70-99) 206 mg/dL (70-99) Sodium Level 136 mmol/L (136-145) Potassium Level 3.2 mmol/L (3.5-5.1) Chloride Level 102 mmol/L (98-107) Carbon Dioxide Level 25 mmol/L (21-32) Anion Gap 9 (6-14) Blood Urea Nitrogen 43 mg/dL (7-20) Creatinine 2.3 mg/dL (0.6-1.0) Estimated GFR (Cockcroft-Gault) 26.2 Glucose Level 176 mg/dL (70-99) Calcium Level 8.2 mg/dL (8.5-10.1) Phosphorus Level 2.4 mg/dL (2.6-4.7) Albumin 1.9 g/dL (3.4-5.0) Test 06/11/17 03:30 06/11/17 07:34 White Blood Count 10.1 x10^3/uL (4.0-11.0) Red Blood Count 2.90 x10^6/uL (3.50-5.40) Hemoglobin 7.8 g/dL (12.0-15.5) Hematocrit 23.7 % (36.0-47.0) Mean Corpuscular Volume 82 fL (79-100) Mean Corpuscular Hemoglobin 27 pg (25-35) Mean Corpuscular Hemoglobin Concent 33 g/dL (31-37) Red Cell Distribution Width 17.5 % (11.5-14.5) Platelet Count 122 x10^3/uL (140-400) Magnesium Level 1.9 mg/dL (1.8-2.4) Glucose (Fingerstick) 136 mg/dL (70-99) Assessment Assessment Problems Medical Problems: (1) Congestive heart disease Status: Acute (2) Elevated troponin Status: Acute (3) Pneumonia Status: Acute (4) Sepsis Status: Acute Problems: Plan Plan of Care Problems Medical Problems: (1) Congestive heart disease Status: Acute (2) Elevated troponin Status: Acute (3) Pneumonia Status: Acute (4) Sepsis Status: Acute INGRID LOMBARDI MD Jun 11, 2017 09:36
[2017-06-11] MEDS: guaiFENesin DM 200MG/20MG 10 ML SYRUP PO SCH ×4 (13:00→20:32)
[2017-06-11] MEDS: BENZONATATE 100 MG CAPSULE. PO SCH ×3 (14:00→20:32)
--- NOTE | 2017-06-11 14:22 | PDOC ---
PROGRESS NOTES Chief Complaint Chief Complaint chronic systolic CHF, cardiomyopathy with EF 20%, severe global hypokinesis sepsis, severe sepsis on admit, now improved Cough, fevers, tachycardia, ASHLEY on CKD, probable ATN anemia of chronic disease, Overweight BMI 29 Gram positive bacteremia (GPC in chains, likely strep) Diabetes type 2, Pacemaker/AICD in situ NSTEMI, 2 demand dyslipidemia Right shoulder pain, musculoskeletal Thrombocytopenia, History of Present Illness History of Present Illness ASHLEY on CKD, HD today, very tired after weakness, but better PO intake today Essentially lots of comorbidities with overall prognosis is poor. S s/p LHC HD today, very lethargic, needs PT and OT Overall prognosis of this patient is guarded. L Vitals Vitals Vital Signs Date Time Temp Pulse Resp B/P (MAP) Pulse Ox O2 Delivery O2 Flow Rate FiO2 06/11/17 08:05 Nasal Cannula 2.0 06/11/17 07:00 97.8 78 18 141/65 (90) 99 97.8 Physical Exam General: Alert, No acute distress Heart: Regular rate (Paced), Other (3/6/systolic murmur to LLS border) Lungs: Clear, Other Abdomen: Soft Extremities: No cyanosis, No edema Skin: No breakdown, No significant lesion Labs LABS Laboratory Tests Test 06/10/17 16:27 06/10/17 20:41 06/11/17 03:00 06/11/17 03:30 Glucose (Fingerstick) 193 mg/dL (70-99) 206 mg/dL (70-99) Sodium Level 136 mmol/L (136-145) Potassium Level 3.2 mmol/L (3.5-5.1) Chloride Level 102 mmol/L (98-107) Carbon Dioxide Level 25 mmol/L (21-32) Anion Gap 9 (6-14) Blood Urea Nitrogen 43 mg/dL (7-20) Creatinine 2.3 mg/dL (0.6-1.0) Estimated GFR (Cockcroft-Gault) 26.2 Glucose Level 176 mg/dL (70-99) Calcium Level 8.2 mg/dL (8.5-10.1) Phosphorus Level 2.4 mg/dL (2.6-4.7) Albumin 1.9 g/dL (3.4-5.0) White Blood Count 10.1 x10^3/uL (4.0-11.0) Red Blood Count 2.90 x10^6/uL (3.50-5.40) Hemoglobin 7.8 g/dL (12.0-15.5) Hematocrit 23.7 % (36.0-47.0) Mean Corpuscular Volume 82 fL (79-100) Mean Corpuscular Hemoglobin 27 pg (25-35) Mean Corpuscular Hemoglobin Concent 33 g/dL (31-37) Red Cell Distribution Width 17.5 % (11.5-14.5) Platelet Count 122 x10^3/uL (140-400) Magnesium Level 1.9 mg/dL (1.8-2.4) Test 06/11/17 07:34 06/11/17 12:49 Glucose (Fingerstick) 136 mg/dL (70-99) 87 mg/dL (70-99) Assessment and Plan Assessmemt and Plan Problems Medical Problems: (1) Congestive heart disease Status: Acute (2) Elevated troponin Status: Acute (3) Pneumonia Status: Acute (4) Sepsis Status: Acute Problems: Comment Review of Relevant I have reviewed the following items bro (where applicable) has been applied. Labs Laboratory Tests Test 06/09/17 17:19 06/09/17 20:21 06/10/17 03:25 06/10/17 07:40 Glucose (Fingerstick) 172 mg/dL (70-99) 245 mg/dL (70-99) 247 mg/dL (70-99) White Blood Count 8.9 x10^3/uL (4.0-11.0) Red Blood Count 3.16 x10^6/uL (3.50-5.40) Hemoglobin 8.5 g/dL (12.0-15.5) Hematocrit 26.1 % (36.0-47.0) Mean Corpuscular Volume 83 fL (79-100) Mean Corpuscular Hemoglobin 27 pg (25-35) Mean Corpuscular Hemoglobin Concent 33 g/dL (31-37) Red Cell Distribution Width 17.6 % (11.5-14.5) Platelet Count 122 x10^3/uL (140-400) Neutrophils (%) (Auto) 83 % (31-73) Lymphocytes (%) (Auto) 8 % (24-48) Monocytes (%) (Auto) 9 % (0-9) Eosinophils (%) (Auto) 0 % (0-3) Basophils (%) (Auto) 0 % (0-3) Neutrophils # (Auto) 7.3 x10^3uL (1.8-7.7) Lymphocytes # (Auto) 0.7 x10^3/uL (1.0-4.8) Monocytes # (Auto) 0.8 x10^3/uL (0.0-1.1) Eosinophils # (Auto) 0.0 x10^3/uL (0.0-0.7) Basophils # (Auto) 0.0 x10^3/uL (0.0-0.2) Sodium Level 132 mmol/L (136-145) Potassium Level 4.1 mmol/L (3.5-5.1) Chloride Level 99 mmol/L (98-107) Carbon Dioxide Level 21 mmol/L (21-32) Anion Gap 12 (6-14) Blood Urea Nitrogen 70 mg/dL (7-20) Creatinine 3.1 mg/dL (0.6-1.0) Estimated GFR (Cockcroft-Gault) 18.5 Glucose Level 260 mg/dL (70-99) Calcium Level 8.5 mg/dL (8.5-10.1) Phosphorus Level 4.8 mg/dL (2.6-4.7) Magnesium Level 2.1 mg/dL (1.8-2.4) Albumin 2.1 g/dL (3.4-5.0) Test 06/10/17 11:07 06/10/17 16:27 06/10/17 20:41 06/11/17 03:00 Glucose (Fingerstick) 258 mg/dL (70-99) 193 mg/dL (70-99) 206 mg/dL (70-99) Sodium Level 136 mmol/L (136-145) Potassium Level 3.2 mmol/L (3.5-5.1) Chloride Level 102 mmol/L (98-107) Carbon Dioxide Level 25 mmol/L (21-32) Anion Gap 9 (6-14) Blood Urea Nitrogen 43 mg/dL (7-20) Creatinine 2.3 mg/dL (0.6-1.0) Estimated GFR (Cockcroft-Gault) 26.2 Glucose Level 176 mg/dL (70-99) Calcium Level 8.2 mg/dL (8.5-10.1) Phosphorus Level 2.4 mg/dL (2.6-4.7) Albumin 1.9 g/dL (3.4-5.0) Test 06/11/17 03:30 06/11/17 07:34 06/11/17 12:49 White Blood Count 10.1 x10^3/uL (4.0-11.0) Red Blood Count 2.90 x10^6/uL (3.50-5.40) Hemoglobin 7.8 g/dL (12.0-15.5) Hematocrit 23.7 % (36.0-47.0) Mean Corpuscular Volume 82 fL (79-100) Mean Corpuscular Hemoglobin 27 pg (25-35) Mean Corpuscular Hemoglobin Concent 33 g/dL (31-37) Red Cell Distribution Width 17.5 % (11.5-14.5) Platelet Count 122 x10^3/uL (140-400) Magnesium Level 1.9 mg/dL (1.8-2.4) Glucose (Fingerstick) 136 mg/dL (70-99) 87 mg/dL (70-99) Laboratory Tests Test 06/10/17 16:27 06/10/17 20:41 06/11/17 03:00 06/11/17 03:30 Glucose (Fingerstick) 193 mg/dL (70-99) 206 mg/dL (70-99) Sodium Level 136 mmol/L (136-145) Potassium Level 3.2 mmol/L (3.5-5.1) Chloride Level 102 mmol/L (98-107) Carbon Dioxide Level 25 mmol/L (21-32) Anion Gap 9 (6-14) Blood Urea Nitrogen 43 mg/dL (7-20) Creatinine 2.3 mg/dL (0.6-1.0) Estimated GFR (Cockcroft-Gault) 26.2 Glucose Level 176 mg/dL (70-99) Calcium Level 8.2 mg/dL (8.5-10.1) Phosphorus Level 2.4 mg/dL (2.6-4.7) Albumin 1.9 g/dL (3.4-5.0) White Blood Count 10.1 x10^3/uL (4.0-11.0) Red Blood Count 2.90 x10^6/uL (3.50-5.40) Hemoglobin 7.8 g/dL (12.0-15.5) Hematocrit 23.7 % (36.0-47.0) Mean Corpuscular Volume 82 fL (79-100) Mean Corpuscular Hemoglobin 27 pg (25-35) Mean Corpuscular Hemoglobin Concent 33 g/dL (31-37) Red Cell Distribution Width 17.5 % (11.5-14.5) Platelet Count 122 x10^3/uL (140-400) Magnesium Level 1.9 mg/dL (1.8-2.4) Test 06/11/17 07:34 06/11/17 12:49 Glucose (Fingerstick) 136 mg/dL (70-99) 87 mg/dL (70-99) Microbiology 06/06/17 Blood Culture - Final, Complete NO GROWTH AFTER 5 DAYS 06/07/17 - Final, Complete 06/07/17 - Final, Complete 06/07/17 - Final, Complete 06/07/17 Gram Stain Evaluation - Final, Complete 06/07/17 Sputum Culture - Final, Complete 06/07/17 Sputum Result 1 - Final, Complete 06/07/17 Sputum Result 2 - Final, Complete 06/06/17 Urine Culture - Final, Complete 06/06/17 Urine Culture Result 1 (TANJA) - Final, Complete Medications Current Medications Ondansetron HCl (Zofran) 8 mg 1X ONCE IV Last administered on 06/05/17 18:36 ; Start 06/05/17 at 18:30; Stop 06/05/17 at 18:31; Status DC Aspirin (Children'S Aspirin) 324 mg 1X ONCE PO Last administered on 19:48; Start 06/05/17 at 19:45; Stop 06/05/17 at 19:46; Status DC Sodium Chloride 1,000 ml @ 1,000 mls/hr 1X ONCE IV Last administered on 06/05 20:12; Start 06/05/17 at 20:00; Stop 06/05/17 at 20:59; Status DC Cefepime HCl 2 gm/ Dextrose 100 ml @ 200 mls/hr 1X ONCE IV ; Start 06/05/17 at 20:00; Stop 06/05/17 at 20:04; Status DC Cefepime HCl (Maxipime) 2 gm Q12HR IVP Last administered on 06/08/17 09:02; Start 06/05/17 at 21:00; Stop 06/08/17 at 09:21; Status DC Ondansetron HCl (Zofran) 4 mg PRN Q8HRS PRN IV NAUSEA/VOMITING; Start at 20:15; Stop 06/06/17 at 08:52; Status DC Sodium Chloride 1,000 ml @ 75 mls/hr [id number] IV Last administered on 10:30; Start 06/05/17 at 20:06; Stop 06/06/17 at 20:05; Status DC Albuterol/ Ipratropium (Duoneb) 3 ml RTQID NEB ; Start 06/06/17 at 08:00; Stop 06/07/17 at 07:59; Status DC Acetaminophen (Tylenol) 650 mg PRN Q6HRS PRN PO fever Last administered on 16:33; Start 06/05/17 at 20:15; Stop 06/09/17 at 16:31; Status DC Vancomycin HCl (Vanco Per Pharmacy) 1 each PRN DAILY PRN MC SEE COMMENTS Last administered on 06/06/17 15:14; Start 06/05/17 at 20:15; Stop 06/07/17 at 09 :14; Status DC Acetaminophen (Tylenol) 1,000 mg 1X ONCE PO Last administered on 06/05/17 20 :17; Start 06/05/17 at 20:15; Stop 06/05/17 at 20:21; Status DC Vancomycin HCl 2 gm/Dextrose/ Sodium Chloride 500 ml @ 250 mls/hr 1X ONCE IV Last administered on 06/05/17 21:45; Start 06/05/17 at 21:00; Stop 06/05/17 at 22:59; Status DC Vancomycin HCl 1.25 gm/Sodium Chloride 250 ml @ 167 mls/hr Q24H IV ; Start at 22:00; Stop 06/06/17 at 22:00; Status DC Vancomycin HCl 1 each 1X ONCE MC ; Start 06/07/17 at 20:00; Stop 06/07/17 at 20:00; Status DC Norepinephrine Bitartrate 250 ml @ 0 mls/hr CONT PRN IV SEE I/O RECORD Last administered on 06/05/17 23:13; Start 06/05/17 at 22:45; Stop 06/10/17 at 13 :22; Status DC Magnesium Sulfate/ Dextrose 50 ml @ 25 mls/hr PRN DAILY PRN IV for Mag < 1.7 on am labs Last administered on 06/06/17 12:40; Start 06/06/17 at 08:30 Ondansetron HCl (Zofran) 4 mg PRN Q6HRS PRN IV NAUSEA/VOMITING; Start at 09:00; Stop 06/07/17 at 08:59; Status DC Guaifenesin (Robitussin Dm) 10 ml QID PO Last administered on 06/10/17 20:17 ; Start 06/06/17 at 09:00 Heparin Sodium (Porcine) (Heparin Sodium) 4,000 unit 1X ONCE IV Last administered on 06/06/17 10:19; Start 06/06/17 at 09:15; Stop 06/06/17 at 09 :21; Status DC Heparin Sodium/ Dextrose 500 ml @ 0 mls/hr CONT PRN IV SEE I/O RECORD Last administered on 06/08/17 16:49; Start 06/06/17 at 09:15; Stop 06/10/17 at 13 :25; Status DC Heparin Sodium (Porcine) (Heparin Sodium) 2,000 unit PRN Q6HRS PRN IV FOR UFH LEVEL LESS THAN 0.2; Start 06/06/17 at 09:15; Stop 06/10/17 at 13:25; Status DC Furosemide (Lasix) 40 mg 1X ONCE IVP Last administered on 06/06/17 10:09; Start 06/06/17 at 10:00; Stop 06/06/17 at 10:01; Status DC Aspirin (Ecotrin) 81 mg DAILYWBKFT PO Last administered on 06/09/17 08:46; Start 06/07/17 at 08:00; Stop 06/10/17 at 09:36; Status DC Lactobacillus Rhamnosus (Culturelle) 1 cap BID PO Last administered on 20:17; Start 06/06/17 at 21:00 Acetaminophen/ Hydrocodone Bitart (Lortab 5/325) 1 tab PRN Q6HRS PRN PO PAIN Last administered on 06/08/17 21:47; Start 06/06/17 at 20:30 Capsaicin (Zostrix) 1 nelson TID TP Last administered on 06/10/17 15:11; Start 06/06/17 at 21:00 Benzonatate (Tessalon Perle) 100 mg TID PO Last administered on 06/10/17 20: 17; Start 06/07/17 at 04:00 Magnesium Sulfate/ Dextrose 50 ml @ 25 mls/hr 1X ONCE IV Last administered on 06/07/17 08:55; Start 06/07/17 at 09:00; Stop 06/07/17 at 10:59; Status DC Docusate Sodium (Colace) 100 mg DAILY PO Last administered on 06/10/17 15:12 ; Start 06/07/17 at 10:30 Metoprolol Tartrate (Lopressor) 12.5 mg BID PO Last administered on 06/10/17 20:17; Start 06/07/17 at 13:30 Info (Anti-Coagulation Monitoring By Pharmacy) 1 each PRN DAILY PRN MC SEE COMMENTS Last administered on 06/08/17 14:20; Start 06/08/17 at 08:00; Stop 06/10/17 at 13:25; Status DC Ondansetron HCl (Zofran) 4 mg PRN Q6HRS PRN IV NAUSEA/VOMITING 1ST CHOICE; Start 06/08/17 at 09:00 Ceftriaxone Sodium 2 gm/ Dextrose 100 ml @ 200 mls/hr Q12HR IV ; Start at 21:00; Status UNV Levofloxacin (Levaquin) 250 mg 1X ONCE PO ; Start 06/08/17 at 09:30; Stop at 09:30; Status DC Ceftriaxone Sodium (Rocephin) 2 gm Q12HR IVP Last administered on 06/10/17 20 :18; Start 06/08/17 at 10:00 Insulin Detemir (Levemir) 10 units QHS SQ Last administered on 06/10/17 20:42 ; Start 06/08/17 at 21:00 Insulin Aspart (NovoLOG) 0-9 UNITS TIDWMEALS SQ Last administered on 17:34; Start 06/08/17 at 12:00 Dextrose (Dextrose 50%-Water Syringe) 12.5 gm PRN Q15MIN PRN IV SEE COMMENTS; Start 06/08/17 at 09:45 Ferrous Sulfate (Feosol) 325 mg DAILYWBKFT PO Last administered on 06/10/17 15:11; Start 06/08/17 at 11:30 Prednisone (Prednisone) 50 mg TID@0700,1500,2300 PO Last administered on 06:27; Start 06/08/17 at 15:00; Stop 06/09/17 at 07:01; Status DC Diphenhydramine HCl (Benadryl) 50 mg 1X ONCE PO Last administered on 14:35; Start 06/09/17 at 07:00; Stop 06/09/17 at 07:01; Status DC Famotidine (Pepcid) 20 mg 1X ONCE PO Last administered on 06/09/17 14:35; Start 06/09/17 at 07:00; Stop 06/09/17 at 07:01; Status DC Sodium Chloride 1,000 ml @ 60 mls/hr [id number] IV Last administered on 06:14; Start 06/08/17 at 20:00 Methylprednisolone Sodium Succinate (SOLU-Medrol 125MG VIAL) 125 mg 1X ONCE IV ; Start 06/09/17 at 08:00; Stop 06/09/17 at 08:01; Status Cancel Diphenhydramine HCl (Benadryl) 50 mg 1X ONCE IVP ; Start 06/09/17 at 08:00; Stop 06/09/17 at 08:01; Status DC Acetylcysteine (Mucomyst 20% Oral Solution) 600 mg BID PO Last administered on 06/10/17 20:21; Start 06/09/17 at 08:00; Stop 06/11/17 at 07:59; Status DC Acetaminophen (Tylenol) 650 mg 1X ONCE PO Last administered on 06/09/17 14: 35; Start 06/09/17 at 08:00; Stop 06/09/17 at 08:01; Status DC Lidocaine/Sodium Bicarbonate (Buffered Lidocaine 1%) 3 ml STK-MED ONCE IJ ; Start 06/09/17 at 08:16; Stop 06/09/17 at 08:17; Status DC Heparin Sodium (Porcine) (Heparin Sodium) 10,000 unit STK-MED ONCE .ROUTE ; Start 06/09/17 at 08:16; Stop 06/09/17 at 08:17; Status DC Lidocaine/Sodium Bicarbonate (Buffered Lidocaine 1%) 6 ml 1X ONCE IJ Last administered on 06/09/17 09:25; Start 06/09/17 at 09:30; Stop 06/09/17 at 09 :31; Status DC Heparin Sodium (Porcine) (Heparin Sodium) 2,500 unit 1X ONCE INT CAT Last administered on 06/09/17 09:25; Start 06/09/17 at 09:30; Stop 06/09/17 at 09 :31; Status DC Methylprednisolone Sodium Succinate (SOLU-Medrol 125MG VIAL) 125 mg 1X ONCE IV Last administered on 06/09/17 14:36; Start 06/09/17 at 14:30; Stop at 14:31; Status DC Heparin Sodium/ Sodium Chloride 500 ml @ As Directed STK-MED ONCE .ROUTE ; Start 06/09/17 at 14:36; Stop 06/09/17 at 14:37; Status DC Iodixanol (Visipaque 320) 100 ml STK-MED ONCE .ROUTE ; Start 06/09/17 at 14:36 ; Stop 06/09/17 at 14:37; Status DC Lidocaine HCl 20 ml STK-MED ONCE .ROUTE ; Start 06/09/17 at 14:37; Stop at 14:38; Status DC Darbepoetin Joey (Aranesp) 60 mcg Fr SQ Last administered on 06/09/17t 20:54; Start 06/09/17 at 21:00 Fentanyl Citrate (Fentanyl 2ml Vial) 100 mcg STK-MED ONCE .ROUTE ; Start at 15:02; Stop 06/09/17 at 15:03; Status DC Midazolam HCl (Versed) 2 mg STK-MED ONCE .ROUTE ; Start 06/09/17 at 15:02; Stop 06/09/17 at 15:03; Status DC Bivalirudin (Angiomax) 250 mg STK-MED ONCE IV ; Start 06/09/17 at 15:19; Stop 06/09/17 at 15:20; Status DC Iodixanol (Visipaque 320) 100 ml STK-MED ONCE .ROUTE ; Start 06/09/17 at 15:24 ; Stop 06/09/17 at 15:25; Status DC Clopidogrel Bisulfate (Plavix) 75 mg STK-MED ONCE .ROUTE ; Start 06/09/17 at 15 :37; Stop 06/09/17 at 15:38; Status DC Heparin Sodium/ Sodium Chloride 1,000 unit 1X ONCE IART Last administered on 06/09/17 15:55; Start 06/09/17 at 15:45; Stop 06/09/17 at 15:48; Status DC Midazolam HCl (Versed) 0.5 mg 1X ONCE IV Last administered on 06/09/17 15:54 ; Start 06/09/17 at 15:45; Stop 06/09/17 at 15:48; Status DC Fentanyl Citrate (Fentanyl 2ml Vial) 12.5 mcg 1X ONCE IV Last administered on 06/09/17 16:00; Start 06/09/17 at 15:45; Stop 06/09/17 at 15:48; Status DC Iodixanol (Visipaque 320) 154 ml 1X ONCE IART Last administered on 06/09/17 15:55; Start 06/09/17 at 15:45; Stop 06/09/17 at 15:48; Status DC Bivalirudin (Angiomax) 250 mg 1X ONCE IV Last administered on 06/09/17 15:59 ; Start 06/09/17 at 15:45; Stop 06/09/17 at 15:48; Status DC Clopidogrel Bisulfate (Plavix) 600 mg 1X ONCE PO Last administered on 16:00; Start 06/09/17 at 15:45; Stop 06/09/17 at 15:48; Status DC Lidocaine HCl 20 ml 1X ONCE IJ Last administered on 06/09/17 15:55; Start 06/09/17 at 15:45; Stop 06/09/17 at 15:48; Status DC Info (Do NOT chart on this entry -- for MONITORING) 1 each PRN DAILY PRN MC SEE COMMENTS; Start 06/09/17 at 16:00; Stop 06/11/17 at 15:59 Clopidogrel Bisulfate (Plavix) 75 mg STK-MED ONCE .ROUTE ; Start 06/09/17 at 15 :51; Stop 06/09/17 at 15:52; Status DC Aspirin (Children'S Aspirin) 244 mg 1X ONCE PO Last administered on 16:03; Start 06/09/17 at 16:15; Stop 06/09/17 at 16:16; Status DC Aspirin (Ecotrin) 325 mg DAILYWBKFT PO Last administered on 06/10/17 15:12; Start 06/10/17 at 08:00 Clopidogrel Bisulfate (Plavix) 75 mg DAILYWBKFT PO Last administered on 15:11; Start 06/10/17 at 08:00 Atorvastatin Calcium (Lipitor) 40 mg QHS PO Last administered on 06/10/17 20: 17; Start 06/09/17 at 21:00 Acetaminophen (Tylenol) 650 mg PRN Q6HRS PRN PO MILD PAIN / TEMP; Start at 16:30 Fentanyl Citrate (Fentanyl 2ml Vial) 50 mcg PRN Q1HR PRN IV MODERATE OR SEVERE PAIN; Start 06/09/17 at 16:30 Nitroglycerin (Nitrostat) 0.4 mg PRN Q5MIN PRN SL CHEST PAIN; Start 06/09/17 at 16:30 Sodium Chloride 1,000 ml @ 1,000 mls/hr Q1H PRN IV hypotension; Start at 08:25; Stop 06/10/17 at 14:24; Status DC Diphenhydramine HCl (Benadryl) 25 mg 1X PRN PRN IV ITCHING; Start 06/10/17 at 08:30; Stop 06/11/17 at 08:29; Status DC Diphenhydramine HCl (Benadryl) 25 mg 1X PRN PRN IV ITCHING; Start 06/10/17 at 08:30; Stop 06/11/17 at 08:29; Status DC Sodium Chloride (Normal Saline Flush) 10 ml 1X PRN PRN IV AP catheter pack; Start 06/10/17 at 08:30; Stop 06/11/17 at 08:29; Status DC Sodium Chloride (Normal Saline Flush) 10 ml 1X PRN PRN IV GAME OPERATOR catheter pack; Start 06/10/17 at 08:30; Stop 06/11/17 at 08:29; Status DC Sodium Chloride 1,000 ml @ 400 mls/hr Q2H30M PRN IV PATENCY; Start 06/10/17 at 08:25; Stop 06/10/17 at 20:24; Status DC Info (PHARMACY MONITORING -- do not chart) 1 each PRN DAILY PRN MC SEE COMMENTS ; Start 06/10/17 at 08:30 Sodium Chloride 1,000 ml @ 1,000 mls/hr Q1H PRN IV hypotension; Start at 08:47; Stop 06/11/17 at 14:46 Diphenhydramine HCl (Benadryl) 25 mg 1X PRN PRN IV ITCHING; Start 06/11/17 at 09:00; Stop 06/12/17 at 08:59 Diphenhydramine HCl (Benadryl) 25 mg 1X PRN PRN IV ITCHING; Start 06/11/17 at 09:00; Stop 06/12/17 at 08:59 Sodium Chloride (Normal Saline Flush) 10 ml 1X PRN PRN IV AP catheter pack; Start 06/11/17 at 09:00; Stop 06/12/17 at 08:59 Sodium Chloride (Normal Saline Flush) 10 ml 1X PRN PRN IV GAME OPERATOR catheter pack; Start 06/11/17 at 09:00; Stop 06/12/17 at 08:59 Sodium Chloride 1,000 ml @ 400 mls/hr Q2H30M PRN IV PATENCY; Start 06/11/17 at 08:47; Stop 06/11/17 at 20:46 Info (PHARMACY MONITORING -- do not chart) 1 each PRN DAILY PRN MC SEE COMMENTS ; Start 06/11/17 at 09:00 Active Scripts Active Cyclobenzaprine Hcl 10 Mg Tablet 1 Tab PO QHS Reported Coreg (Carvedilol) 6.25 Mg Tablet 1.5 Tab PO BID Entresto 49 mg-51 mg Tablet (Sacubitril/Valsartan) 1 Each Tablet 1 Each PO BID Atorvastatin Calcium 40 Mg Tablet 40 Mg PO HS Miralax (Polyethylene Glycol 3350) 17 Gm Powd.pack 1 Packet PO PRN DAILY PRN Colace (Docusate Sodium) 100 Mg Capsule 1 Cap PO DAILY Furosemide 20 Mg Tablet 40 Mg PO DAILY Gabapentin 300 Mg Capsule 600 Mg PO PRN TID PRN Vitamin B-12 (Cyanocobalamin (Vitamin B-12)) 1,000 Mcg Tablet 500 Mcg PO DAILY Lantus Solostar (Insulin Glargine,Hum.rec.anlog) 100 Unit/1 Ml Insuln.pen 25 Unit SQ QHS Novolog (Insulin Aspart) 100 Unit/1 Ml Cartridge 3 Unit SQ TIDAC Aspirin 81 Mg Tab.chew 81 Mg PO DAILY Metformin Hcl 500 Mg Tablet 1,000 Mg PO BID Vitals/I & O Vital Sign - Last 24 Hours 06/10/17 06/10/17 06/10/17 06/10/17 15:00 15:12 19:38 20:02 Temp 98.3 98.4 98.3 98.4 Pulse 87 79 79 Resp 18 18 B/P (MAP) 138/74 (95) 125/64 125/58 (80) Pulse Ox 96 93 O2 Delivery Nasal Cannula Room Air Room Air O2 Flow Rate 2.0 06/10/17 06/10/17 06/11/17 06/11/17 20:17 23:40 03:18 07:00 Temp 98.4 98.2 97.8 98.4 98.2 97.8 Pulse 79 81 79 78 Resp 20 18 18 B/P (MAP) 125/58 140/68 (92) 137/73 (94) 141/65 (90) Pulse Ox 97 97 99 O2 Delivery Nasal Cannula Nasal Cannula Nasal Cannula O2 Flow Rate 2.0 2.0 2.0 06/11/17 08:05 O2 Delivery Nasal Cannula O2 Flow Rate 2.0 Intake and Output 06/10/17 06/10/17 06/11/17 15:00 23:00 07:00 Intake Total 500 ml 520 ml Output Total 400 ml Balance 100 ml 520 ml Nutrition Consultation Dietary Evaluation: Recommendations by RD: Increase Calorie Intake Comments: REC Cardiac/ADA diet Expected Outcomes/Goals: Diet advancement within 24 - 48 hrs - met, new goal established New goal: PO intake to meet > 75% est needs Interpretation of weight loss: >5% in 1 month Malnutrition Findings: Food and Nutrition Intake (Mod: <75% est energy req 7days Weight Status: Overweight ROLDAN FRANCISCO MD Jun 11, 2017 14:22
[2017-06-11] MEDS: FERROUS SULFATE 325 MG TABLET. PO SCH (14:53)
[2017-06-11] MEDS: ASPIRIN ENTERIC COATED 325 MG TABLET.DR. PO SCH (14:54)
[2017-06-11] MEDS: LACTOBACILLUS RHAMNOSUS GG 1 CAPSULE. PO SCH ×2 (14:54→20:32)
[2017-06-11] MEDS: DOCUSATE SODIUM 100 MG CAPSULE. PO SCH (14:54)
[2017-06-11] MEDS: CLOPIDOGREL BISULFATE 75 MG TABLET PO SCH (14:54)
[2017-06-11] MEDS: METOPROLOL TART IMMED RELEASE 25 MG TABLET. PO SCH ×2 (14:55→20:33)
[2017-06-11] MEDS: cefTRIAXone IV Push 2 GM VIAL. IVP SCH ×2 (14:55→20:33)
[2017-06-11 15:00] VITALS: BP 121/64
[2017-06-11 19:15] VITALS: BP 115/58
[2017-06-11] MEDS: ATORVASTATIN CALCIUM 20 MG TABLET PO SCH (20:32)
[2017-06-11] MEDS: INSULIN DETEMIR 300 UNITS/3 ML INSULN.PEN. SQ SCH (20:36)
[2017-06-11 23:20] VITALS: BP 144/68
[2017-06-12 03:20] VITALS: BP 149/75
[2017-06-12] MEDS: IV NORMAL SALINE 1000ML BAG 1,000 ML IV SCH (04:10)
[2017-06-12 05:39] LABS: ALBUMIN 1.7 g/dL (3.4-5.0); CREATININE 1.6 mg/dL (0.6-1.0); GFR 39.8; PHOSPHORUS 1.9 mg/dL (2.6-4.7)
[2017-06-12] MEDS: HYDROcodone/APAP 5/325MG 1 TAB TABLET PO PRN (06:10)
[2017-06-12 07:00] VITALS: BP 127/60
[2017-06-12] MEDS: INSULIN ASPART 300 UNITS/3 ML INSULN.PEN SQ SCH ×3 (08:00→16:52)
[2017-06-12] MEDS: FERROUS SULFATE 325 MG TABLET. PO SCH (08:50)
[2017-06-12] MEDS: cefTRIAXone IV Push 2 GM VIAL. IVP SCH (08:50)
[2017-06-12] MEDS: DOCUSATE SODIUM 100 MG CAPSULE. PO SCH (08:51)
[2017-06-12] MEDS: ASPIRIN ENTERIC COATED 325 MG TABLET.DR. PO SCH (08:51)
[2017-06-12] MEDS: CLOPIDOGREL BISULFATE 75 MG TABLET PO SCH (08:51)
[2017-06-12] MEDS: guaiFENesin DM 200MG/20MG 10 ML SYRUP PO SCH ×4 (08:51→22:07)
[2017-06-12] MEDS: CAPSAICIN 0.025% TOPICAL CREAM 60GM TUBE. TP SCH ×3 (08:51→22:07)
[2017-06-12] MEDS: BENZONATATE 100 MG CAPSULE. PO SCH ×3 (08:51→22:07)
[2017-06-12] MEDS: LACTOBACILLUS RHAMNOSUS GG 1 CAPSULE. PO SCH ×2 (08:51→22:07)
[2017-06-12] MEDS: ONDANSETRON PF 4 MG/2 ML VIAL. IV PRN ×2 (08:57→14:09)
[2017-06-12] MEDS: fentaNYL PF VIAL 100 MCG/2 ML VIAL IV PRN ×2 (09:35→14:08)
--- NOTE | 2017-06-12 10:10 | PDOC ---
Infectious Disease Note Subjective Subjective Pt says feels weak, tired, some cough and sob, improving,c/o nausea and vomiting , says feels hot , has fan by her chair and that helps No fever ROS ROS as above otherwise neg Vital Sign Vital Signs Vital Signs Date Time Temp Pulse Resp B/P (MAP) Pulse Ox O2 Delivery O2 Flow Rate FiO2 06/12/17 09:35 Nasal Cannula 2.0 06/12/17 07:00 98.2 74 18 127/60 (82) 96 98.2 Physical Exam PHYSICAL EXAM GENERAL: NAD,sitting in chair NECK RT HD cath in place LUNGS: Clear anteriorly HEART: S1S2, pacemaker ABD: Soft, NT EXT:+ edema, HOME HEALTH NURSE LICENSED PRACTICAL: axox3 SKIN: No rash IV: ok Temp HDC. (06/09). clean Labs Lab Laboratory Tests Test 06/11/17 12:49 06/11/17 16:20 06/11/17 20:31 06/12/17 03:30 Glucose (Fingerstick) 87 mg/dL (70-99) 106 mg/dL (70-99) 141 mg/dL (70-99) Sodium Level 141 mmol/L (136-145) Potassium Level 3.0 mmol/L (3.5-5.1) Chloride Level 105 mmol/L (98-107) Carbon Dioxide Level 29 mmol/L (21-32) Anion Gap 7 (6-14) Blood Urea Nitrogen 22 mg/dL (7-20) Creatinine 1.6 mg/dL (0.6-1.0) Estimated GFR (Cockcroft-Gault) 39.8 Glucose Level 85 mg/dL (70-99) Calcium Level 8.0 mg/dL (8.5-10.1) Phosphorus Level 1.9 mg/dL (2.6-4.7) Albumin 1.7 g/dL (3.4-5.0) Test 06/12/17 07:39 06/12/17 08:08 06/12/17 09:22 Glucose (Fingerstick) 54 mg/dL (70-99) 73 mg/dL (70-99) 91 mg/dL (70-99) Micro BC strep pneumonia repeat bc neg sputum reviewed Objective Assessment Strep pneumoniae bacteremia source likely lung NSTEMI,CM awaiting [facility] today ASHLEY /ATN on HD Nausea and vomiting resolved Anemia, Paraproteinemia Rt Shoulder pain Plan Plan of Care Continue ceftriaxone 2gm IV QD cont supportive care XANDER LOMBARDI MD Jun 12, 2017 10:10
[2017-06-12 11:00] VITALS: BP 138/66
[2017-06-12] MEDS: METOPROLOL TART IMMED RELEASE 25 MG TABLET. PO SCH ×2 (11:57→22:08)
[2017-06-12] MEDS ORDERED: POTASSIUM CHLORIDE 10MEQ 100 ML IV SCH (12:00)
[2017-06-12] MEDS: IV DEXTROSE 5%-LACT RINGERS 1,000 ML IV SCH (12:13)
--- NOTE | 2017-06-12 12:23 | PDOC ---
PROGRESS NOTES Subjective Subjective c/o nausea and vomiting, denied any chest pain Objective Objective Vital Signs Date Time Temp Pulse Resp B/P (MAP) Pulse Ox O2 Delivery O2 Flow Rate FiO2 06/12/17 11:48 96.8 96.8 06/12/17 11:00 72 18 138/66 (90) 99 Nasal Cannula 2.0 Intake and Output 06/12/17 06:59 Intake Total 1903 ml Output Total 800 ml Balance 1103 ml Intake Oral 750 ml IV Total 1153 ml Output Urine Total 800 ml # Voids 2 Physical Exam Abdomen: Soft Heart: Regular rate (Paced), Other (3/6/systolic murmur to LLS border) Extremities: No cyanosis, No edema General: Alert, No acute distress HEENT: Atraumatic, Mucous membr. moist/pink Lungs: Other (upper rhonchi, basilar crackles) MUSCULOSKELETAL: Osteoarthritic changes both hands Neck: No JVD Neuro: Normal speech, Sensation intact Psych/Mental Status: Mental status NL Skin: No breakdown, No significant lesion Assessment Assessment 1. NSTEMI: s/p PCI/stent to LAD, chest pain free. Continue current meds including DAPT. 2. Chr systolic HF: well compensated. Continue current medical regimen 3. Sepsis: per ID 4. HLP/DM: per IM Follow up with our office in one month Plan Plan of Care Problems Medical Problems: (1) Congestive heart disease Status: Acute (2) Elevated troponin Status: Acute (3) Pneumonia Status: Acute (4) Sepsis Status: Acute Comment Review of Relevant I have reviewed the following items bro (where applicable) has been applied. Labs Laboratory Tests Test 06/11/17 12:49 06/11/17 16:20 06/11/17 20:31 06/12/17 03:30 Glucose (Fingerstick) 87 mg/dL (70-99) 106 mg/dL (70-99) 141 mg/dL (70-99) Sodium Level 141 mmol/L (136-145) Potassium Level 3.0 mmol/L (3.5-5.1) Chloride Level 105 mmol/L (98-107) Carbon Dioxide Level 29 mmol/L (21-32) Anion Gap 7 (6-14) Blood Urea Nitrogen 22 mg/dL (7-20) Creatinine 1.6 mg/dL (0.6-1.0) Estimated GFR (Cockcroft-Gault) 39.8 Glucose Level 85 mg/dL (70-99) Calcium Level 8.0 mg/dL (8.5-10.1) Phosphorus Level 1.9 mg/dL (2.6-4.7) Albumin 1.7 g/dL (3.4-5.0) Test 06/12/17 07:39 06/12/17 08:08 06/12/17 09:22 06/12/17 11:21 Glucose (Fingerstick) 54 mg/dL (70-99) 73 mg/dL (70-99) 91 mg/dL (70-99) 47 mg/dL (70-99) Test 06/12/17 12:08 Glucose (Fingerstick) 111 mg/dL (70-99) Microbiology 06/06/17 Blood Culture - Final, Complete NO GROWTH AFTER 5 DAYS 06/07/17 - Final, Complete 06/07/17 - Final, Complete 06/07/17 - Final, Complete 06/07/17 Gram Stain Evaluation - Final, Complete 06/07/17 Sputum Culture - Final, Complete 06/07/17 Sputum Result 1 - Final, Complete 06/07/17 Sputum Result 2 - Final, Complete 06/06/17 Urine Culture - Final, Complete 06/06/17 Urine Culture Result 1 (TANJA) - Final, Complete Medications Current Medications Ceftriaxone Sodium (Rocephin) 2 gm DAILY IVP ; Start 06/13/17 at 09:00 Dextrose/Lactated Ringer's 1,000 ml @ 60 mls/hr [id number] IV Last administered on 06/12/17t 12:13; Start 06/12/17 at 12:00 Potassium Chloride 100 ml @ 100 mls/hr Q1H IV Last administered on 06/12/17t 12:15; Start 06/12/17 at 12:00; Stop 06/12/17 at 12:59 Vitals/I & O Vital Sign - Last 24 Hours 06/11/17 06/11/17 06/11/17 06/11/17 14:55 15:00 19:15 19:17 Temp 98.3 97.4 98.3 97.4 Pulse 83 85 85 Resp 18 20 B/P (MAP) 121/64 121/64 (83) 115/58 (77) Pulse Ox 94 88 O2 Delivery Nasal Cannula Room Air Room Air O2 Flow Rate 2.0 06/11/17 06/11/17 06/12/17 06/12/17 20:33 23:20 03:20 06:10 Temp 97.7 98.2 97.7 98.2 Pulse 85 74 79 Resp 20 22 B/P (MAP) 115/58 144/68 (93) 149/75 (99) Pulse Ox 96 95 95 O2 Delivery Nasal Cannula Nasal Cannula Room Air O2 Flow Rate 2.0 2.0 06/12/17 06/12/17 06/12/17 06/12/17 07:00 07:30 07:50 09:35 Temp 98.2 98.2 Pulse 74 Resp 18 B/P (MAP) 127/60 (82) Pulse Ox 96 O2 Delivery Nasal Cannula Room Air Room Air Nasal Cannula O2 Flow Rate 2.0 2.0 06/12/17 06/12/17 06/12/17 10:05 11:00 11:48 Temp 96.8 96.8 Pulse 72 Resp 18 B/P (MAP) 138/66 (90) Pulse Ox 99 O2 Delivery Nasal Cannula Nasal Cannula O2 Flow Rate 2.0 2.0 Intake and Output 06/11/17 06/11/17 06/12/17 14:59 22:59 06:59 Intake Total 750 ml 1153 ml Output Total 300 ml 500 ml Balance -300 ml 750 ml 653 ml LAUREL MENDOZA MD Jun 12, 2017 12:23
--- NOTE | 2017-06-12 14:08 | PDOC ---
PROGRESS NOTES Chief Complaint Chief Complaint chronic systolic CHF, cardiomyopathy with EF 20%, severe global hypokinesis sepsis, severe sepsis on admit, now improved Cough, fevers, tachycardia, ASHLEY on CKD, probable ATN anemia of chronic disease, Overweight BMI 29 Gram positive bacteremia (GPC in chains, likely strep) Diabetes type 2, Pacemaker/AICD in situ NSTEMI, 2 demand dyslipidemia Right shoulder pain, musculoskeletal Thrombocytopenia, History of Present Illness History of Present Illness ASHLEY on CKD, HD yesterday she reports more urine output, weakness, PO intake limited today + nausea, and vomited earlier, looks better now Essentially lots of comorbidities with overall prognosis is poor. s/p LHC needs PT and OT Overall prognosis of this patient is guarded. Vitals Vitals Vital Signs Date Time Temp Pulse Resp B/P (MAP) Pulse Ox O2 Delivery O2 Flow Rate FiO2 06/12/17 11:48 96.8 96.8 06/12/17 11:00 72 18 138/66 (90) 99 Nasal Cannula 2.0 Physical Exam General: Alert, No acute distress Heart: Regular rate (Paced), Other (3/6/systolic murmur to LLS border) Lungs: Clear, Other Abdomen: Soft Extremities: No cyanosis, No edema Skin: No breakdown, No significant lesion Labs LABS Laboratory Tests Test 06/11/17 16:20 06/11/17 20:31 06/12/17 03:30 06/12/17 07:39 Glucose (Fingerstick) 106 mg/dL (70-99) 141 mg/dL (70-99) 54 mg/dL (70-99) Sodium Level 141 mmol/L (136-145) Potassium Level 3.0 mmol/L (3.5-5.1) Chloride Level 105 mmol/L (98-107) Carbon Dioxide Level 29 mmol/L (21-32) Anion Gap 7 (6-14) Blood Urea Nitrogen 22 mg/dL (7-20) Creatinine 1.6 mg/dL (0.6-1.0) Estimated GFR (Cockcroft-Gault) 39.8 Glucose Level 85 mg/dL (70-99) Calcium Level 8.0 mg/dL (8.5-10.1) Phosphorus Level 1.9 mg/dL (2.6-4.7) Albumin 1.7 g/dL (3.4-5.0) Test 06/12/17 08:08 06/12/17 09:22 06/12/17 11:21 06/12/17 12:08 Glucose (Fingerstick) 73 mg/dL (70-99) 91 mg/dL (70-99) 47 mg/dL (70-99) 111 mg/dL (70-99) Review of Systems Review of Systems nausea weakenss no new Assessment and Plan Assessmemt and Plan Problems Medical Problems: (1) Congestive heart disease Status: Acute (2) Elevated troponin Status: Acute (3) Pneumonia Status: Acute (4) Sepsis Status: Acute Problems: Comment Review of Relevant I have reviewed the following items bro (where applicable) has been applied. Labs Laboratory Tests Test 06/10/17 16:27 06/10/17 20:41 06/11/17 03:00 06/11/17 03:30 Glucose (Fingerstick) 193 mg/dL (70-99) 206 mg/dL (70-99) Sodium Level 136 mmol/L (136-145) Potassium Level 3.2 mmol/L (3.5-5.1) Chloride Level 102 mmol/L (98-107) Carbon Dioxide Level 25 mmol/L (21-32) Anion Gap 9 (6-14) Blood Urea Nitrogen 43 mg/dL (7-20) Creatinine 2.3 mg/dL (0.6-1.0) Estimated GFR (Cockcroft-Gault) 26.2 Glucose Level 176 mg/dL (70-99) Calcium Level 8.2 mg/dL (8.5-10.1) Phosphorus Level 2.4 mg/dL (2.6-4.7) Albumin 1.9 g/dL (3.4-5.0) White Blood Count 10.1 x10^3/uL (4.0-11.0) Red Blood Count 2.90 x10^6/uL (3.50-5.40) Hemoglobin 7.8 g/dL (12.0-15.5) Hematocrit 23.7 % (36.0-47.0) Mean Corpuscular Volume 82 fL (79-100) Mean Corpuscular Hemoglobin 27 pg (25-35) Mean Corpuscular Hemoglobin Concent 33 g/dL (31-37) Red Cell Distribution Width 17.5 % (11.5-14.5) Platelet Count 122 x10^3/uL (140-400) Magnesium Level 1.9 mg/dL (1.8-2.4) Test 06/11/17 07:34 06/11/17 12:49 06/11/17 16:20 06/11/17 20:31 Glucose (Fingerstick) 136 mg/dL (70-99) 87 mg/dL (70-99) 106 mg/dL (70-99) 141 mg/dL (70-99) Test 06/12/17 03:30 06/12/17 07:39 06/12/17 08:08 06/12/17 09:22 Sodium Level 141 mmol/L (136-145) Potassium Level 3.0 mmol/L (3.5-5.1) Chloride Level 105 mmol/L (98-107) Carbon Dioxide Level 29 mmol/L (21-32) Anion Gap 7 (6-14) Blood Urea Nitrogen 22 mg/dL (7-20) Creatinine 1.6 mg/dL (0.6-1.0) Estimated GFR (Cockcroft-Gault) 39.8 Glucose Level 85 mg/dL (70-99) Calcium Level 8.0 mg/dL (8.5-10.1) Phosphorus Level 1.9 mg/dL (2.6-4.7) Albumin 1.7 g/dL (3.4-5.0) Glucose (Fingerstick) 54 mg/dL (70-99) 73 mg/dL (70-99) 91 mg/dL (70-99) Test 06/12/17 11:21 06/12/17 12:08 Glucose (Fingerstick) 47 mg/dL (70-99) 111 mg/dL (70-99) Laboratory Tests Test 06/11/17 16:20 06/11/17 20:31 06/12/17 03:30 06/12/17 07:39 Glucose (Fingerstick) 106 mg/dL (70-99) 141 mg/dL (70-99) 54 mg/dL (70-99) Sodium Level 141 mmol/L (136-145) Potassium Level 3.0 mmol/L (3.5-5.1) Chloride Level 105 mmol/L (98-107) Carbon Dioxide Level 29 mmol/L (21-32) Anion Gap 7 (6-14) Blood Urea Nitrogen 22 mg/dL (7-20) Creatinine 1.6 mg/dL (0.6-1.0) Estimated GFR (Cockcroft-Gault) 39.8 Glucose Level 85 mg/dL (70-99) Calcium Level 8.0 mg/dL (8.5-10.1) Phosphorus Level 1.9 mg/dL (2.6-4.7) Albumin 1.7 g/dL (3.4-5.0) Test 06/12/17 08:08 06/12/17 09:22 06/12/17 11:21 06/12/17 12:08 Glucose (Fingerstick) 73 mg/dL (70-99) 91 mg/dL (70-99) 47 mg/dL (70-99) 111 mg/dL (70-99) Microbiology 06/06/17 Blood Culture - Final, Complete NO GROWTH AFTER 5 DAYS 06/07/17 - Final, Complete 06/07/17 - Final, Complete 06/07/17 - Final, Complete 06/07/17 Gram Stain Evaluation - Final, Complete 06/07/17 Sputum Culture - Final, Complete 06/07/17 Sputum Result 1 - Final, Complete 06/07/17 Sputum Result 2 - Final, Complete 06/06/17 Urine Culture - Final, Complete 06/06/17 Urine Culture Result 1 (TANJA) - Final, Complete Medications Current Medications Ondansetron HCl (Zofran) 8 mg 1X ONCE IV Last administered on 06/05/17 18:36 ; Start 06/05/17 at 18:30; Stop 06/05/17 at 18:31; Status DC Aspirin (Children'S Aspirin) 324 mg 1X ONCE PO Last administered on 19:48; Start 06/05/17 at 19:45; Stop 06/05/17 at 19:46; Status DC Sodium Chloride 1,000 ml @ 1,000 mls/hr 1X ONCE IV Last administered on 06/05 20:12; Start 06/05/17 at 20:00; Stop 06/05/17 at 20:59; Status DC Cefepime HCl 2 gm/ Dextrose 100 ml @ 200 mls/hr 1X ONCE IV ; Start 06/05/17 at 20:00; Stop 06/05/17 at 20:04; Status DC Cefepime HCl (Maxipime) 2 gm Q12HR IVP Last administered on 06/08/17 09:02; Start 06/05/17 at 21:00; Stop 06/08/17 at 09:21; Status DC Ondansetron HCl (Zofran) 4 mg PRN Q8HRS PRN IV NAUSEA/VOMITING; Start at 20:15; Stop 06/06/17 at 08:52; Status DC Sodium Chloride 1,000 ml @ 75 mls/hr [id number] IV Last administered on 10:30; Start 06/05/17 at 20:06; Stop 06/06/17 at 20:05; Status DC Albuterol/ Ipratropium (Duoneb) 3 ml RTQID NEB ; Start 06/06/17 at 08:00; Stop 06/07/17 at 07:59; Status DC Acetaminophen (Tylenol) 650 mg PRN Q6HRS PRN PO fever Last administered on 16:33; Start 06/05/17 at 20:15; Stop 06/09/17 at 16:31; Status DC Vancomycin HCl (Vanco Per Pharmacy) 1 each PRN DAILY PRN MC SEE COMMENTS Last administered on 06/06/17 15:14; Start 06/05/17 at 20:15; Stop 06/07/17 at 09 :14; Status DC Acetaminophen (Tylenol) 1,000 mg 1X ONCE PO Last administered on 06/05/17 20 :17; Start 06/05/17 at 20:15; Stop 06/05/17 at 20:21; Status DC Vancomycin HCl 2 gm/Dextrose/ Sodium Chloride 500 ml @ 250 mls/hr 1X ONCE IV Last administered on 06/05/17 21:45; Start 06/05/17 at 21:00; Stop 06/05/17 at 22:59; Status DC Vancomycin HCl 1.25 gm/Sodium Chloride 250 ml @ 167 mls/hr Q24H IV ; Start at 22:00; Stop 06/06/17 at 22:00; Status DC Vancomycin HCl 1 each 1X ONCE MC ; Start 06/07/17 at 20:00; Stop 06/07/17 at 20:00; Status DC Norepinephrine Bitartrate 250 ml @ 0 mls/hr CONT PRN IV SEE I/O RECORD Last administered on 06/05/17 23:13; Start 06/05/17 at 22:45; Stop 06/10/17 at 13 :22; Status DC Magnesium Sulfate/ Dextrose 50 ml @ 25 mls/hr PRN DAILY PRN IV for Mag < 1.7 on am labs Last administered on 06/06/17 12:40; Start 06/06/17 at 08:30 Ondansetron HCl (Zofran) 4 mg PRN Q6HRS PRN IV NAUSEA/VOMITING; Start at 09:00; Stop 06/07/17 at 08:59; Status DC Guaifenesin (Robitussin Dm) 10 ml QID PO Last administered on 06/12/17 08:51 ; Start 06/06/17 at 09:00 Heparin Sodium (Porcine) (Heparin Sodium) 4,000 unit 1X ONCE IV Last administered on 06/06/17 10:19; Start 06/06/17 at 09:15; Stop 06/06/17 at 09 :21; Status DC Heparin Sodium/ Dextrose 500 ml @ 0 mls/hr CONT PRN IV SEE I/O RECORD Last administered on 06/08/17 16:49; Start 06/06/17 at 09:15; Stop 06/10/17 at 13 :25; Status DC Heparin Sodium (Porcine) (Heparin Sodium) 2,000 unit PRN Q6HRS PRN IV FOR UFH LEVEL LESS THAN 0.2; Start 06/06/17 at 09:15; Stop 06/10/17 at 13:25; Status DC Furosemide (Lasix) 40 mg 1X ONCE IVP Last administered on 06/06/17 10:09; Start 06/06/17 at 10:00; Stop 06/06/17 at 10:01; Status DC Aspirin (Ecotrin) 81 mg DAILYWBKFT PO Last administered on 06/09/17 08:46; Start 06/07/17 at 08:00; Stop 06/10/17 at 09:36; Status DC Lactobacillus Rhamnosus (Culturelle) 1 cap BID PO Last administered on 08:51; Start 06/06/17 at 21:00 Acetaminophen/ Hydrocodone Bitart (Lortab 5/325) 1 tab PRN Q6HRS PRN PO PAIN Last administered on 06/12/17 06:10; Start 06/06/17 at 20:30 Capsaicin (Zostrix) 1 nelson TID TP Last administered on 06/12/17 08:51; Start 06/06/17 at 21:00 Benzonatate (Tessalon Perle) 100 mg TID PO Last administered on 06/12/17 08: 51; Start 06/07/17 at 04:00 Magnesium Sulfate/ Dextrose 50 ml @ 25 mls/hr 1X ONCE IV Last administered on 06/07/17 08:55; Start 06/07/17 at 09:00; Stop 06/07/17 at 10:59; Status DC Docusate Sodium (Colace) 100 mg DAILY PO Last administered on 06/12/17 08:51 ; Start 06/07/17 at 10:30 Metoprolol Tartrate (Lopressor) 12.5 mg BID PO Last administered on 06/11/17 20:33; Start 06/07/17 at 13:30 Info (Anti-Coagulation Monitoring By Pharmacy) 1 each PRN DAILY PRN MC SEE COMMENTS Last administered on 06/08/17 14:20; Start 06/08/17 at 08:00; Stop 06/10/17 at 13:25; Status DC Ondansetron HCl (Zofran) 4 mg PRN Q6HRS PRN IV NAUSEA/VOMITING 1ST CHOICE Last administered on 06/12/17 08:57; Start 06/08/17 at 09:00 Ceftriaxone Sodium 2 gm/ Dextrose 100 ml @ 200 mls/hr Q12HR IV ; Start at 21:00; Status UNV Levofloxacin (Levaquin) 250 mg 1X ONCE PO ; Start 06/08/17 at 09:30; Stop at 09:30; Status DC Ceftriaxone Sodium (Rocephin) 2 gm Q12HR IVP Last administered on 06/12/17 08 :50; Start 06/08/17 at 10:00; Stop 06/12/17 at 10:05; Status DC Insulin Detemir (Levemir) 10 units QHS SQ Last administered on 06/11/17 20:36 ; Start 06/08/17 at 21:00; Stop 06/12/17 at 12:21; Status DC Insulin Aspart (NovoLOG) 0-9 UNITS TIDWMEALS SQ Last administered on 17:34; Start 06/08/17 at 12:00 Dextrose (Dextrose 50%-Water Syringe) 12.5 gm PRN Q15MIN PRN IV SEE COMMENTS Last administered on 06/12/17 11:27; Start 06/08/17 at 09:45 Ferrous Sulfate (Feosol) 325 mg DAILYWBKFT PO Last administered on 06/12/17 08:50; Start 06/08/17 at 11:30 Prednisone (Prednisone) 50 mg TID@0700,1500,2300 PO Last administered on 06:27; Start 06/08/17 at 15:00; Stop 06/09/17 at 07:01; Status DC Diphenhydramine HCl (Benadryl) 50 mg 1X ONCE PO Last administered on 14:35; Start 06/09/17 at 07:00; Stop 06/09/17 at 07:01; Status DC Famotidine (Pepcid) 20 mg 1X ONCE PO Last administered on 06/09/17 14:35; Start 06/09/17 at 07:00; Stop 06/09/17 at 07:01; Status DC Sodium Chloride 1,000 ml @ 60 mls/hr [id number] IV Last administered on 04:10; Start 06/08/17 at 20:00; Stop 06/12/17 at 11:52; Status DC Methylprednisolone Sodium Succinate (SOLU-Medrol 125MG VIAL) 125 mg 1X ONCE IV ; Start 06/09/17 at 08:00; Stop 06/09/17 at 08:01; Status Cancel Diphenhydramine HCl (Benadryl) 50 mg 1X ONCE IVP ; Start 06/09/17 at 08:00; Stop 06/09/17 at 08:01; Status DC Acetylcysteine (Mucomyst 20% Oral Solution) 600 mg BID PO Last administered on 06/10/17 20:21; Start 06/09/17 at 08:00; Stop 06/11/17 at 07:59; Status DC Acetaminophen (Tylenol) 650 mg 1X ONCE PO Last administered on 06/09/17 14: 35; Start 06/09/17 at 08:00; Stop 06/09/17 at 08:01; Status DC Lidocaine/Sodium Bicarbonate (Buffered Lidocaine 1%) 3 ml STK-MED ONCE IJ ; Start 06/09/17 at 08:16; Stop 06/09/17 at 08:17; Status DC Heparin Sodium (Porcine) (Heparin Sodium) 10,000 unit STK-MED ONCE .ROUTE ; Start 06/09/17 at 08:16; Stop 06/09/17 at 08:17; Status DC Lidocaine/Sodium Bicarbonate (Buffered Lidocaine 1%) 6 ml 1X ONCE IJ Last administered on 06/09/17 09:25; Start 06/09/17 at 09:30; Stop 06/09/17 at 09 :31; Status DC Heparin Sodium (Porcine) (Heparin Sodium) 2,500 unit 1X ONCE INT CAT Last administered on 06/09/17 09:25; Start 06/09/17 at 09:30; Stop 06/09/17 at 09 :31; Status DC Methylprednisolone Sodium Succinate (SOLU-Medrol 125MG VIAL) 125 mg 1X ONCE IV Last administered on 06/09/17 14:36; Start 06/09/17 at 14:30; Stop at 14:31; Status DC Heparin Sodium/ Sodium Chloride 500 ml @ As Directed STK-MED ONCE .ROUTE ; Start 06/09/17 at 14:36; Stop 06/09/17 at 14:37; Status DC Iodixanol (Visipaque 320) 100 ml STK-MED ONCE .ROUTE ; Start 06/09/17 at 14:36 ; Stop 06/09/17 at 14:37; Status DC Lidocaine HCl 20 ml STK-MED ONCE .ROUTE ; Start 06/09/17 at 14:37; Stop at 14:38; Status DC Darbepoetin Joey (Aranesp) 60 mcg Fr SQ Last administered on 06/09/17 20:54; Start 06/09/17 at 21:00 Fentanyl Citrate (Fentanyl 2ml Vial) 100 mcg STK-MED ONCE .ROUTE ; Start at 15:02; Stop 06/09/17 at 15:03; Status DC Midazolam HCl (Versed) 2 mg STK-MED ONCE .ROUTE ; Start 06/09/17 at 15:02; Stop 06/09/17 at 15:03; Status DC Bivalirudin (Angiomax) 250 mg STK-MED ONCE IV ; Start 06/09/17 at 15:19; Stop 06/09/17 at 15:20; Status DC Iodixanol (Visipaque 320) 100 ml STK-MED ONCE .ROUTE ; Start 06/09/17 at 15:24 ; Stop 06/09/17 at 15:25; Status DC Clopidogrel Bisulfate (Plavix) 75 mg STK-MED ONCE .ROUTE ; Start 06/09/17 at 15 :37; Stop 06/09/17 at 15:38; Status DC Heparin Sodium/ Sodium Chloride 1,000 unit 1X ONCE IART Last administered on 06/09/17 15:55; Start 06/09/17 at 15:45; Stop 06/09/17 at 15:48; Status DC Midazolam HCl (Versed) 0.5 mg 1X ONCE IV Last administered on 06/09/17 15:54 ; Start 06/09/17 at 15:45; Stop 06/09/17 at 15:48; Status DC Fentanyl Citrate (Fentanyl 2ml Vial) 12.5 mcg 1X ONCE IV Last administered on 06/09/17 16:00; Start 06/09/17 at 15:45; Stop 06/09/17 at 15:48; Status DC Iodixanol (Visipaque 320) 154 ml 1X ONCE IART Last administered on 06/09/17 15:55; Start 06/09/17 at 15:45; Stop 06/09/17 at 15:48; Status DC Bivalirudin (Angiomax) 250 mg 1X ONCE IV Last administered on 06/09/17 15:59 ; Start 06/09/17 at 15:45; Stop 06/09/17 at 15:48; Status DC Clopidogrel Bisulfate (Plavix) 600 mg 1X ONCE PO Last administered on 16:00; Start 06/09/17 at 15:45; Stop 06/09/17 at 15:48; Status DC Lidocaine HCl 20 ml 1X ONCE IJ Last administered on 06/09/17 15:55; Start 06/09/17 at 15:45; Stop 06/09/17 at 15:48; Status DC Info (Do NOT chart on this entry -- for MONITORING) 1 each PRN DAILY PRN MC SEE COMMENTS; Start 06/09/17 at 16:00; Stop 06/11/17 at 15:59; Status DC Clopidogrel Bisulfate (Plavix) 75 mg STK-MED ONCE .ROUTE ; Start 06/09/17 at 15 :51; Stop 06/09/17 at 15:52; Status DC Aspirin (Children'S Aspirin) 244 mg 1X ONCE PO Last administered on 16:03; Start 06/09/17 at 16:15; Stop 06/09/17 at 16:16; Status DC Aspirin (Ecotrin) 325 mg DAILYWBKFT PO Last administered on 06/12/17 08:51; Start 06/10/17 at 08:00 Clopidogrel Bisulfate (Plavix) 75 mg DAILYWBKFT PO Last administered on 08:51; Start 06/10/17 at 08:00 Atorvastatin Calcium (Lipitor) 40 mg QHS PO Last administered on 06/11/17 20: 32; Start 06/09/17 at 21:00 Acetaminophen (Tylenol) 650 mg PRN Q6HRS PRN PO MILD PAIN / TEMP; Start at 16:30 Fentanyl Citrate (Fentanyl 2ml Vial) 50 mcg PRN Q1HR PRN IV MODERATE OR SEVERE PAIN Last administered on 06/12/17 09:35; Start 06/09/17 at 16:30 Nitroglycerin (Nitrostat) 0.4 mg PRN Q5MIN PRN SL CHEST PAIN; Start 06/09/17 at 16:30 Sodium Chloride 1,000 ml @ 1,000 mls/hr Q1H PRN IV hypotension; Start at 08:25; Stop 06/10/17 at 14:24; Status DC Diphenhydramine HCl (Benadryl) 25 mg 1X PRN PRN IV ITCHING; Start 06/10/17 at 08:30; Stop 06/11/17 at 08:29; Status DC Diphenhydramine HCl (Benadryl) 25 mg 1X PRN PRN IV ITCHING; Start 06/10/17 at 08:30; Stop 06/11/17 at 08:29; Status DC Sodium Chloride (Normal Saline Flush) 10 ml 1X PRN PRN IV AP catheter pack; Start 06/10/17 at 08:30; Stop 06/11/17 at 08:29; Status DC Sodium Chloride (Normal Saline Flush) 10 ml 1X PRN PRN IV BUMPER OPERATOR catheter pack; Start 06/10/17 at 08:30; Stop 06/11/17 at 08:29; Status DC Sodium Chloride 1,000 ml @ 400 mls/hr Q2H30M PRN IV PATENCY; Start 06/10/17 at 08:25; Stop 06/10/17 at 20:24; Status DC Info (PHARMACY MONITORING -- do not chart) 1 each PRN DAILY PRN MC SEE COMMENTS ; Start 06/10/17 at 08:30; Stop 06/11/17 at 15:07; Status DC Sodium Chloride 1,000 ml @ 1,000 mls/hr Q1H PRN IV hypotension; Start at 08:47; Stop 06/11/17 at 14:46; Status DC Diphenhydramine HCl (Benadryl) 25 mg 1X PRN PRN IV ITCHING; Start 06/11/17 at 09:00; Stop 06/12/17 at 08:59; Status DC Diphenhydramine HCl (Benadryl) 25 mg 1X PRN PRN IV ITCHING; Start 06/11/17 at 09:00; Stop 06/12/17 at 08:59; Status DC Sodium Chloride (Normal Saline Flush) 10 ml 1X PRN PRN IV AP catheter pack; Start 06/11/17 at 09:00; Stop 06/12/17 at 08:59; Status DC Sodium Chloride (Normal Saline Flush) 10 ml 1X PRN PRN IV BUMPER OPERATOR catheter pack; Start 06/11/17 at 09:00; Stop 06/12/17 at 08:59; Status DC Sodium Chloride 1,000 ml @ 400 mls/hr Q2H30M PRN IV PATENCY; Start 06/11/17 at 08:47; Stop 06/11/17 at 20:46; Status DC Info (PHARMACY MONITORING -- do not chart) 1 each PRN DAILY PRN MC SEE COMMENTS ; Start 06/11/17 at 09:00 Ceftriaxone Sodium (Rocephin) 2 gm DAILY IVP ; Start 06/13/17 at 09:00 Dextrose/Lactated Ringer's 1,000 ml @ 60 mls/hr [id number] IV Last administered on 06/12/17 12:13; Start 06/12/17 at 12:00 Potassium Chloride 100 ml @ 100 mls/hr Q1H IV Last administered on 06/12/17 12:15; Start 06/12/17 at 12:00; Stop 06/12/17 at 12:59; Status DC Active Scripts Active Cyclobenzaprine Hcl 10 Mg Tablet 1 Tab PO QHS Reported Coreg (Carvedilol) 6.25 Mg Tablet 1.5 Tab PO BID Entresto 49 mg-51 mg Tablet (Sacubitril/Valsartan) 1 Each Tablet 1 Each PO BID Atorvastatin Calcium 40 Mg Tablet 40 Mg PO HS Miralax (Polyethylene Glycol 3350) 17 Gm Powd.pack 1 Packet PO PRN DAILY PRN Colace (Docusate Sodium) 100 Mg Capsule 1 Cap PO DAILY Furosemide 20 Mg Tablet 40 Mg PO DAILY Gabapentin 300 Mg Capsule 600 Mg PO PRN TID PRN Vitamin B-12 (Cyanocobalamin (Vitamin B-12)) 1,000 Mcg Tablet 500 Mcg PO DAILY Lantus Solostar (Insulin Glargine,Hum.rec.anlog) 100 Unit/1 Ml Insuln.pen 25 Unit SQ QHS Novolog (Insulin Aspart) 100 Unit/1 Ml Cartridge 3 Unit SQ TIDAC Aspirin 81 Mg Tab.chew 81 Mg PO DAILY Metformin Hcl 500 Mg Tablet 1,000 Mg PO BID Vitals/I & O Vital Sign - Last 24 Hours 06/11/17 06/11/17 06/11/17 06/11/17 14:55 15:00 19:15 19:17 Temp 98.3 97.4 98.3 97.4 Pulse 83 85 85 Resp 18 20 B/P (MAP) 121/64 121/64 (83) 115/58 (77) Pulse Ox 94 88 O2 Delivery Nasal Cannula Room Air Room Air O2 Flow Rate 2.0 06/11/17 06/11/17 06/12/17 06/12/17 20:33 23:20 03:20 06:10 Temp 97.7 98.2 97.7 98.2 Pulse 85 74 79 Resp 20 22 B/P (MAP) 115/58 144/68 (93) 149/75 (99) Pulse Ox 96 95 95 O2 Delivery Nasal Cannula Nasal Cannula Room Air O2 Flow Rate 2.0 2.0 06/12/17 06/12/17 06/12/17 06/12/17 07:00 07:30 07:50 09:35 Temp 98.2 98.2 Pulse 74 Resp 18 B/P (MAP) 127/60 (82) Pulse Ox 96 O2 Delivery Nasal Cannula Room Air Room Air Nasal Cannula O2 Flow Rate 2.0 2.0 06/12/17 06/12/17 06/12/17 10:05 11:00 11:48 Temp 96.8 96.8 Pulse 72 Resp 18 B/P (MAP) 138/66 (90) Pulse Ox 99 O2 Delivery Nasal Cannula Nasal Cannula O2 Flow Rate 2.0 2.0 Intake and Output 06/11/17 06/11/17 06/12/17 15:00 23:00 07:00 Intake Total 750 ml 1153 ml Output Total 300 ml 500 ml Balance -300 ml 750 ml 653 ml Nutrition Consultation Dietary Evaluation: Recommendations by RD: Increase Calorie Intake Comments: REC Cardiac/ADA diet Expected Outcomes/Goals: Diet advancement within 24 - 48 hrs - met, new goal established New goal: PO intake to meet > 75% est needs Interpretation of weight loss: >5% in 1 month Malnutrition Findings: Food and Nutrition Intake (Mod: <75% est energy req 7days Weight Status: Overweight ROLDAN FRANCISCO MD Jun 12, 2017 14:08
[2017-06-12 14:51] VITALS: BP 94/50
[2017-06-12 19:25] VITALS: BP 144/72
[2017-06-12] MEDS: ATORVASTATIN CALCIUM 20 MG TABLET PO SCH (22:07)
[2017-06-12 23:10] VITALS: BP 153/74
[2017-06-13 03:30] VITALS: BP 149/72
[2017-06-13] MEDS: IV DEXTROSE 5%-LACT RINGERS 1,000 ML IV SCH (06:18)
[2017-06-13 07:20] VITALS: BP 140/73
[2017-06-13] MEDS: INSULIN ASPART 300 UNITS/3 ML INSULN.PEN SQ SCH ×4 (08:00→17:00)
[2017-06-13 08:07] LABS: ALBUMIN 1.8 g/dL (3.4-5.0); CALCIUM 8.7 mg/dL (8.5-10.1); CREATININE 1.7 mg/dL (0.6-1.0); GFR 37.1; PHOSPHORUS 2.4 mg/dL (2.6-4.7); POTASSIUM 3.7 mmol/L (3.5-5.1)
[2017-06-13] MEDS: CLOPIDOGREL BISULFATE 75 MG TABLET PO SCH (09:14)
[2017-06-13] MEDS: FERROUS SULFATE 325 MG TABLET. PO SCH (09:14)
[2017-06-13] MEDS: ASPIRIN ENTERIC COATED 325 MG TABLET.DR. PO SCH (09:15)
[2017-06-13] MEDS: BENZONATATE 100 MG CAPSULE. PO SCH ×3 (09:15→21:11)
[2017-06-13] MEDS: DOCUSATE SODIUM 100 MG CAPSULE. PO SCH (09:15)
[2017-06-13] MEDS: METOPROLOL TART IMMED RELEASE 25 MG TABLET. PO SCH ×2 (09:15→21:12)
[2017-06-13] MEDS: guaiFENesin DM 200MG/20MG 10 ML SYRUP PO SCH ×4 (09:15→21:11)
[2017-06-13] MEDS: CAPSAICIN 0.025% TOPICAL CREAM 60GM TUBE. TP SCH ×3 (09:16→21:14)
[2017-06-13] MEDS: cefTRIAXone IV Push 2 GM VIAL. IVP SCH (09:16)
--- NOTE | 2017-06-13 09:42 | PDOC ---
Infectious Disease Note Subjective Subjective Pt says feels less weak, tired, still some cough and sob improving,c/o nausea and voming but has some abd discomfort No fever Last BM !08/12 ROS ROS O/w neg Vital Sign Vital Signs Vital Signs Date Time Temp Pulse Resp B/P (MAP) Pulse Ox O2 Delivery O2 Flow Rate FiO2 06/13/17 09:15 88 140/73 06/13/17 07:20 98.3 18 95 Nasal Cannula 2.0 98.3 Physical Exam PHYSICAL EXAM GENERAL: NAD,sitting in bed NECK RT HD cath in place LUNGS: Clear anteriorly HEART: S1S2, pacemaker ABD: Soft, NT. 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 (06/09). clean Labs Lab Laboratory Tests Test 06/12/17 11:21 06/12/17 12:08 06/12/17 16:42 06/12/17 20:35 Glucose (Fingerstick) 47 mg/dL (70-99) 111 mg/dL (70-99) 90 mg/dL (70-99) 135 mg/dL (70-99) Test 06/13/17 07:25 06/13/17 07:26 Sodium Level 141 mmol/L (136-145) Potassium Level 3.7 mmol/L (3.5-5.1) Chloride Level 105 mmol/L (98-107) Carbon Dioxide Level 31 mmol/L (21-32) Anion Gap 5 (6-14) Blood Urea Nitrogen 21 mg/dL (7-20) Creatinine 1.7 mg/dL (0.6-1.0) Estimated GFR (Cockcroft-Gault) 37.1 Glucose Level 188 mg/dL (70-99) Calcium Level 8.7 mg/dL (8.5-10.1) Phosphorus Level 2.4 mg/dL (2.6-4.7) Albumin 1.8 g/dL (3.4-5.0) Glucose (Fingerstick) 128 mg/dL (70-99) Objective Assessment Strep pneumoniae bacteremia source likely lung 06/05. 06/06 neg NSTEMI,CM s/p cath 06/09 ASHLEY /ATN on HD Nausea and vomiting resolved. mild abd discomfort Anemia, Paraproteinemia Rt Shoulder pain Plan Plan of Care Continue ceftriaxone 2gm IV QD cont supportive care CHELI GROSSMAN MD Jun 13, 2017 09:42
[2017-06-13 10:33] VITALS: BP 159/75
--- NOTE | 2017-06-13 10:34 | PDOC ---
PROGRESS NOTES Subjective Subjective HPI -f/u of Thrombocytopenia. ROS - no CP Objective Objective Vital Signs Date Time Temp Pulse Resp B/P (MAP) Pulse Ox O2 Delivery O2 Flow Rate FiO2 06/13/17 09:15 88 140/73 06/13/17 08:00 Nasal Cannula 2.0 06/13/17 07:20 98.3 18 95 98.3 Intake and Output 06/13/17 07:00 Intake Total 2072 ml Output Total 1150 ml Balance 922 ml Intake Oral 850 ml IV Total 1222 ml Output Urine Total 1050 ml Emesis 100 ml # Voids 2 Physical Exam Heart: Normal S1, Normal S2 General: Alert Lungs: Clear to auscultation Neuro: Normal speech Assessment Assessment Problems Medical Problems: (1) Congestive heart disease Status: Acute (2) Elevated troponin Status: Acute (3) Pneumonia Status: Acute (4) Sepsis Status: Acute IMPRESSION AND PLAN: 1. Thrombocytopenia. This is a reactive thrombocytopenia due to underlying sepsis. No clinical evidence of thrombotic thrombocytopenic purpura or disseminated intravascular coagulation. Reticulocyte count is normal. Platelets better at 122. Continue to monitor. 2. Anemia, normochromic, normocytic. Iron studies are suggestive of anemia due to chronic disease. B12 and folic acid reveal no deficiency.Hb 7.8 3. Renal failure. 4. Sepsis. Comment Review of Relevant I have reviewed the following items bro (where applicable) has been applied. Labs Laboratory Tests Test 06/11/17 12:49 06/11/17 16:20 06/11/17 20:31 06/12/17 03:30 Glucose (Fingerstick) 87 mg/dL (70-99) 106 mg/dL (70-99) 141 mg/dL (70-99) Sodium Level 141 mmol/L (136-145) Potassium Level 3.0 mmol/L (3.5-5.1) Chloride Level 105 mmol/L (98-107) Carbon Dioxide Level 29 mmol/L (21-32) Anion Gap 7 (6-14) Blood Urea Nitrogen 22 mg/dL (7-20) Creatinine 1.6 mg/dL (0.6-1.0) Estimated GFR (Cockcroft-Gault) 39.8 Glucose Level 85 mg/dL (70-99) Calcium Level 8.0 mg/dL (8.5-10.1) Phosphorus Level 1.9 mg/dL (2.6-4.7) Albumin 1.7 g/dL (3.4-5.0) Test 06/12/17 07:39 06/12/17 08:08 06/12/17 09:22 06/12/17 11:21 Glucose (Fingerstick) 54 mg/dL (70-99) 73 mg/dL (70-99) 91 mg/dL (70-99) 47 mg/dL (70-99) Test 06/12/17 12:08 06/12/17 16:42 06/12/17 20:35 06/13/17 07:25 Glucose (Fingerstick) 111 mg/dL (70-99) 90 mg/dL (70-99) 135 mg/dL (70-99) Sodium Level 141 mmol/L (136-145) Potassium Level 3.7 mmol/L (3.5-5.1) Chloride Level 105 mmol/L (98-107) Carbon Dioxide Level 31 mmol/L (21-32) Anion Gap 5 (6-14) Blood Urea Nitrogen 21 mg/dL (7-20) Creatinine 1.7 mg/dL (0.6-1.0) Estimated GFR (Cockcroft-Gault) 37.1 Glucose Level 188 mg/dL (70-99) Calcium Level 8.7 mg/dL (8.5-10.1) Phosphorus Level 2.4 mg/dL (2.6-4.7) Albumin 1.8 g/dL (3.4-5.0) Test 06/13/17 07:26 Glucose (Fingerstick) 128 mg/dL (70-99) Laboratory Tests Test 06/12/17 11:21 06/12/17 12:08 06/12/17 16:42 06/12/17 20:35 Glucose (Fingerstick) 47 mg/dL (70-99) 111 mg/dL (70-99) 90 mg/dL (70-99) 135 mg/dL (70-99) Test 06/13/17 07:25 06/13/17 07:26 Sodium Level 141 mmol/L (136-145) Potassium Level 3.7 mmol/L (3.5-5.1) Chloride Level 105 mmol/L (98-107) Carbon Dioxide Level 31 mmol/L (21-32) Anion Gap 5 (6-14) Blood Urea Nitrogen 21 mg/dL (7-20) Creatinine 1.7 mg/dL (0.6-1.0) Estimated GFR (Cockcroft-Gault) 37.1 Glucose Level 188 mg/dL (70-99) Calcium Level 8.7 mg/dL (8.5-10.1) Phosphorus Level 2.4 mg/dL (2.6-4.7) Albumin 1.8 g/dL (3.4-5.0) Glucose (Fingerstick) 128 mg/dL (70-99) Microbiology 06/06/17 Blood Culture - Final, Complete NO GROWTH AFTER 5 DAYS 06/07/17 - Final, Complete 06/07/17 - Final, Complete 06/07/17 - Final, Complete 06/07/17 Gram Stain Evaluation - Final, Complete 06/07/17 Sputum Culture - Final, Complete 06/07/17 Sputum Result 1 - Final, Complete 06/07/17 Sputum Result 2 - Final, Complete 06/06/17 Urine Culture - Final, Complete 06/06/17 Urine Culture Result 1 (TANJA) - Final, Complete Medications Current Medications Ondansetron HCl (Zofran) 8 mg 1X ONCE IV Last administered on 06/05/17 18:36 ; Start 06/05/17 at 18:30; Stop 06/05/17 at 18:31; Status DC Aspirin (Children'S Aspirin) 324 mg 1X ONCE PO Last administered on 19:48; Start 06/05/17 at 19:45; Stop 06/05/17 at 19:46; Status DC Sodium Chloride 1,000 ml @ 1,000 mls/hr 1X ONCE IV Last administered on 06/05 20:12; Start 06/05/17 at 20:00; Stop 06/05/17 at 20:59; Status DC Cefepime HCl 2 gm/ Dextrose 100 ml @ 200 mls/hr 1X ONCE IV ; Start 06/05/17 at 20:00; Stop 06/05/17 at 20:04; Status DC Cefepime HCl (Maxipime) 2 gm Q12HR IVP Last administered on 06/08/17 09:02; Start 06/05/17 at 21:00; Stop 06/08/17 at 09:21; Status DC Ondansetron HCl (Zofran) 4 mg PRN Q8HRS PRN IV NAUSEA/VOMITING; Start at 20:15; Stop 06/06/17 at 08:52; Status DC Sodium Chloride 1,000 ml @ 75 mls/hr [id number] IV Last administered on 10:30; Start 06/05/17 at 20:06; Stop 06/06/17 at 20:05; Status DC Albuterol/ Ipratropium (Duoneb) 3 ml RTQID NEB ; Start 06/06/17 at 08:00; Stop 06/07/17 at 07:59; Status DC Acetaminophen (Tylenol) 650 mg PRN Q6HRS PRN PO fever Last administered on 16:33; Start 06/05/17 at 20:15; Stop 06/09/17 at 16:31; Status DC Vancomycin HCl (Vanco Per Pharmacy) 1 each PRN DAILY PRN MC SEE COMMENTS Last administered on 06/06/17 15:14; Start 06/05/17 at 20:15; Stop 06/07/17 at 09 :14; Status DC Acetaminophen (Tylenol) 1,000 mg 1X ONCE PO Last administered on 06/05/17 20 :17; Start 06/05/17 at 20:15; Stop 06/05/17 at 20:21; Status DC Vancomycin HCl 2 gm/Dextrose/ Sodium Chloride 500 ml @ 250 mls/hr 1X ONCE IV Last administered on 06/05/17 21:45; Start 06/05/17 at 21:00; Stop 06/05/17 at 22:59; Status DC Vancomycin HCl 1.25 gm/Sodium Chloride 250 ml @ 167 mls/hr Q24H IV ; Start at 22:00; Stop 06/06/17 at 22:00; Status DC Vancomycin HCl 1 each 1X ONCE MC ; Start 06/07/17 at 20:00; Stop 06/07/17 at 20:00; Status DC Norepinephrine Bitartrate 250 ml @ 0 mls/hr CONT PRN IV SEE I/O RECORD Last administered on 06/05/17 23:13; Start 06/05/17 at 22:45; Stop 06/10/17 at 13 :22; Status DC Magnesium Sulfate/ Dextrose 50 ml @ 25 mls/hr PRN DAILY PRN IV for Mag < 1.7 on am labs Last administered on 06/06/17 12:40; Start 06/06/17 at 08:30 Ondansetron HCl (Zofran) 4 mg PRN Q6HRS PRN IV NAUSEA/VOMITING; Start at 09:00; Stop 06/07/17 at 08:59; Status DC Guaifenesin (Robitussin Dm) 10 ml QID PO Last administered on 06/13/17 09:15 ; Start 06/06/17 at 09:00 Heparin Sodium (Porcine) (Heparin Sodium) 4,000 unit 1X ONCE IV Last administered on 06/06/17 10:19; Start 06/06/17 at 09:15; Stop 06/06/17 at 09 :21; Status DC Heparin Sodium/ Dextrose 500 ml @ 0 mls/hr CONT PRN IV SEE I/O RECORD Last administered on 06/08/17 16:49; Start 06/06/17 at 09:15; Stop 06/10/17 at 13 :25; Status DC Heparin Sodium (Porcine) (Heparin Sodium) 2,000 unit PRN Q6HRS PRN IV FOR UFH LEVEL LESS THAN 0.2; Start 06/06/17 at 09:15; Stop 06/10/17 at 13:25; Status DC Furosemide (Lasix) 40 mg 1X ONCE IVP Last administered on 06/06/17 10:09; Start 06/06/17 at 10:00; Stop 06/06/17 at 10:01; Status DC Aspirin (Ecotrin) 81 mg DAILYWBKFT PO Last administered on 06/09/17 08:46; Start 06/07/17 at 08:00; Stop 06/10/17 at 09:36; Status DC Lactobacillus Rhamnosus (Culturelle) 1 cap BID PO Last administered on 22:07; Start 06/06/17 at 21:00 Acetaminophen/ Hydrocodone Bitart (Lortab 5/325) 1 tab PRN Q6HRS PRN PO PAIN Last administered on 06/12/17 06:10; Start 06/06/17 at 20:30 Capsaicin (Zostrix) 1 nelson TID TP Last administered on 06/13/17 09:16; Start 06/06/17 at 21:00 Benzonatate (Tessalon Perle) 100 mg TID PO Last administered on 06/13/17 09: 15; Start 06/07/17 at 04:00 Magnesium Sulfate/ Dextrose 50 ml @ 25 mls/hr 1X ONCE IV Last administered on 06/07/17 08:55; Start 06/07/17 at 09:00; Stop 06/07/17 at 10:59; Status DC Docusate Sodium (Colace) 100 mg DAILY PO Last administered on 06/13/17 09:15 ; Start 06/07/17 at 10:30 Metoprolol Tartrate (Lopressor) 12.5 mg BID PO Last administered on 06/13/17 09:15; Start 06/07/17 at 13:30 Info (Anti-Coagulation Monitoring By Pharmacy) 1 each PRN DAILY PRN MC SEE COMMENTS Last administered on 06/08/17 14:20; Start 06/08/17 at 08:00; Stop 06/10/17 at 13:25; Status DC Ondansetron HCl (Zofran) 4 mg PRN Q6HRS PRN IV NAUSEA/VOMITING 1ST CHOICE Last administered on 06/12/17 14:09; Start 06/08/17 at 09:00 Ceftriaxone Sodium 2 gm/ Dextrose 100 ml @ 200 mls/hr Q12HR IV ; Start at 21:00; Status UNV Levofloxacin (Levaquin) 250 mg 1X ONCE PO ; Start 06/08/17 at 09:30; Stop at 09:30; Status DC Ceftriaxone Sodium (Rocephin) 2 gm Q12HR IVP Last administered on 06/12/17 08 :50; Start 06/08/17 at 10:00; Stop 06/12/17 at 10:05; Status DC Insulin Detemir (Levemir) 10 units QHS SQ Last administered on 06/11/17 20:36 ; Start 06/08/17 at 21:00; Stop 06/12/17 at 12:21; Status DC Insulin Aspart (NovoLOG) 0-9 UNITS TIDWMEALS SQ Last administered on 17:34; Start 06/08/17 at 12:00 Dextrose (Dextrose 50%-Water Syringe) 12.5 gm PRN Q15MIN PRN IV SEE COMMENTS Last administered on 06/12/17 11:27; Start 06/08/17 at 09:45 Ferrous Sulfate (Feosol) 325 mg DAILYWBKFT PO Last administered on 06/13/17 09:14; Start 06/08/17 at 11:30 Prednisone (Prednisone) 50 mg TID@0700,1500,2300 PO Last administered on 06:27; Start 06/08/17 at 15:00; Stop 06/09/17 at 07:01; Status DC Diphenhydramine HCl (Benadryl) 50 mg 1X ONCE PO Last administered on 14:35; Start 06/09/17 at 07:00; Stop 06/09/17 at 07:01; Status DC Famotidine (Pepcid) 20 mg 1X ONCE PO Last administered on 06/09/17 14:35; Start 06/09/17 at 07:00; Stop 06/09/17 at 07:01; Status DC Sodium Chloride 1,000 ml @ 60 mls/hr [id number] IV Last administered on 04:10; Start 06/08/17 at 20:00; Stop 06/12/17 at 11:52; Status DC Methylprednisolone Sodium Succinate (SOLU-Medrol 125MG VIAL) 125 mg 1X ONCE IV ; Start 06/09/17 at 08:00; Stop 06/09/17 at 08:01; Status Cancel Diphenhydramine HCl (Benadryl) 50 mg 1X ONCE IVP ; Start 06/09/17 at 08:00; Stop 06/09/17 at 08:01; Status DC Acetylcysteine (Mucomyst 20% Oral Solution) 600 mg BID PO Last administered on 06/10/17 20:21; Start 06/09/17 at 08:00; Stop 06/11/17 at 07:59; Status DC Acetaminophen (Tylenol) 650 mg 1X ONCE PO Last administered on 06/09/17 14: 35; Start 06/09/17 at 08:00; Stop 06/09/17 at 08:01; Status DC Lidocaine/Sodium Bicarbonate (Buffered Lidocaine 1%) 3 ml STK-MED ONCE IJ ; Start 06/09/17 at 08:16; Stop 06/09/17 at 08:17; Status DC Heparin Sodium (Porcine) (Heparin Sodium) 10,000 unit STK-MED ONCE .ROUTE ; Start 06/09/17 at 08:16; Stop 06/09/17 at 08:17; Status DC Lidocaine/Sodium Bicarbonate (Buffered Lidocaine 1%) 6 ml 1X ONCE IJ Last administered on 06/09/17 09:25; Start 06/09/17 at 09:30; Stop 06/09/17 at 09 :31; Status DC Heparin Sodium (Porcine) (Heparin Sodium) 2,500 unit 1X ONCE INT CAT Last administered on 06/09/17 09:25; Start 06/09/17 at 09:30; Stop 06/09/17 at 09 :31; Status DC Methylprednisolone Sodium Succinate (SOLU-Medrol 125MG VIAL) 125 mg 1X ONCE IV Last administered on 06/09/17 14:36; Start 06/09/17 at 14:30; Stop at 14:31; Status DC Heparin Sodium/ Sodium Chloride 500 ml @ As Directed STK-MED ONCE .ROUTE ; Start 06/09/17 at 14:36; Stop 06/09/17 at 14:37; Status DC Iodixanol (Visipaque 320) 100 ml STK-MED ONCE .ROUTE ; Start 06/09/17 at 14:36 ; Stop 06/09/17 at 14:37; Status DC Lidocaine HCl 20 ml STK-MED ONCE .ROUTE ; Start 06/09/17 at 14:37; Stop at 14:38; Status DC Darbepoetin Joey (Aranesp) 60 mcg Fr SQ Last administered on 06/09/17t 20:54; Start 06/09/17 at 21:00 Fentanyl Citrate (Fentanyl 2ml Vial) 100 mcg STK-MED ONCE .ROUTE ; Start at 15:02; Stop 06/09/17 at 15:03; Status DC Midazolam HCl (Versed) 2 mg STK-MED ONCE .ROUTE ; Start 06/09/17 at 15:02; Stop 06/09/17 at 15:03; Status DC Bivalirudin (Angiomax) 250 mg STK-MED ONCE IV ; Start 06/09/17 at 15:19; Stop 06/09/17 at 15:20; Status DC Iodixanol (Visipaque 320) 100 ml STK-MED ONCE .ROUTE ; Start 06/09/17 at 15:24 ; Stop 06/09/17 at 15:25; Status DC Clopidogrel Bisulfate (Plavix) 75 mg STK-MED ONCE .ROUTE ; Start 06/09/17 at 15 :37; Stop 06/09/17 at 15:38; Status DC Heparin Sodium/ Sodium Chloride 1,000 unit 1X ONCE IART Last administered on 06/09/17 15:55; Start 06/09/17 at 15:45; Stop 06/09/17 at 15:48; Status DC Midazolam HCl (Versed) 0.5 mg 1X ONCE IV Last administered on 06/09/17 15:54 ; Start 06/09/17 at 15:45; Stop 06/09/17 at 15:48; Status DC Fentanyl Citrate (Fentanyl 2ml Vial) 12.5 mcg 1X ONCE IV Last administered on 06/09/17 16:00; Start 06/09/17 at 15:45; Stop 06/09/17 at 15:48; Status DC Iodixanol (Visipaque 320) 154 ml 1X ONCE IART Last administered on 06/09/17 15:55; Start 06/09/17 at 15:45; Stop 06/09/17 at 15:48; Status DC Bivalirudin (Angiomax) 250 mg 1X ONCE IV Last administered on 06/09/17 15:59 ; Start 06/09/17 at 15:45; Stop 06/09/17 at 15:48; Status DC Clopidogrel Bisulfate (Plavix) 600 mg 1X ONCE PO Last administered on 16:00; Start 06/09/17 at 15:45; Stop 06/09/17 at 15:48; Status DC Lidocaine HCl 20 ml 1X ONCE IJ Last administered on 06/09/17 15:55; Start 06/09/17 at 15:45; Stop 06/09/17 at 15:48; Status DC Info (Do NOT chart on this entry -- for MONITORING) 1 each PRN DAILY PRN MC SEE COMMENTS; Start 06/09/17 at 16:00; Stop 06/11/17 at 15:59; Status DC Clopidogrel Bisulfate (Plavix) 75 mg STK-MED ONCE .ROUTE ; Start 06/09/17 at 15 :51; Stop 06/09/17 at 15:52; Status DC Aspirin (Children'S Aspirin) 244 mg 1X ONCE PO Last administered on 16:03; Start 06/09/17 at 16:15; Stop 06/09/17 at 16:16; Status DC Aspirin (Ecotrin) 325 mg DAILYWBKFT PO Last administered on 06/13/17 09:15; Start 06/10/17 at 08:00 Clopidogrel Bisulfate (Plavix) 75 mg DAILYWBKFT PO Last administered on 09:14; Start 06/10/17 at 08:00 Atorvastatin Calcium (Lipitor) 40 mg QHS PO Last administered on 06/12/17 22: 07; Start 06/09/17 at 21:00 Acetaminophen (Tylenol) 650 mg PRN Q6HRS PRN PO MILD PAIN / TEMP; Start at 16:30 Fentanyl Citrate (Fentanyl 2ml Vial) 50 mcg PRN Q1HR PRN IV MODERATE OR SEVERE PAIN Last administered on 06/12/17 14:08; Start 06/09/17 at 16:30 Nitroglycerin (Nitrostat) 0.4 mg PRN Q5MIN PRN SL CHEST PAIN; Start 06/09/17 at 16:30 Sodium Chloride 1,000 ml @ 1,000 mls/hr Q1H PRN IV hypotension; Start at 08:25; Stop 06/10/17 at 14:24; Status DC Diphenhydramine HCl (Benadryl) 25 mg 1X PRN PRN IV ITCHING; Start 06/10/17 at 08:30; Stop 06/11/17 at 08:29; Status DC Diphenhydramine HCl (Benadryl) 25 mg 1X PRN PRN IV ITCHING; Start 06/10/17 at 08:30; Stop 06/11/17 at 08:29; Status DC Sodium Chloride (Normal Saline Flush) 10 ml 1X PRN PRN IV AP catheter pack; Start 06/10/17 at 08:30; Stop 06/11/17 at 08:29; Status DC Sodium Chloride (Normal Saline Flush) 10 ml 1X PRN PRN IV CHILD LIFE THERAPIST catheter pack; Start 06/10/17 at 08:30; Stop 06/11/17 at 08:29; Status DC Sodium Chloride 1,000 ml @ 400 mls/hr Q2H30M PRN IV PATENCY; Start 06/10/17 at 08:25; Stop 06/10/17 at 20:24; Status DC Info (PHARMACY MONITORING -- do not chart) 1 each PRN DAILY PRN MC SEE COMMENTS ; Start 06/10/17 at 08:30; Stop 06/11/17 at 15:07; Status DC Sodium Chloride 1,000 ml @ 1,000 mls/hr Q1H PRN IV hypotension; Start at 08:47; Stop 06/11/17 at 14:46; Status DC Diphenhydramine HCl (Benadryl) 25 mg 1X PRN PRN IV ITCHING; Start 06/11/17 at 09:00; Stop 06/12/17 at 08:59; Status DC Diphenhydramine HCl (Benadryl) 25 mg 1X PRN PRN IV ITCHING; Start 06/11/17 at 09:00; Stop 06/12/17 at 08:59; Status DC Sodium Chloride (Normal Saline Flush) 10 ml 1X PRN PRN IV AP catheter pack; Start 06/11/17 at 09:00; Stop 06/12/17 at 08:59; Status DC Sodium Chloride (Normal Saline Flush) 10 ml 1X PRN PRN IV CHILD LIFE THERAPIST catheter pack; Start 06/11/17 at 09:00; Stop 06/12/17 at 08:59; Status DC Sodium Chloride 1,000 ml @ 400 mls/hr Q2H30M PRN IV PATENCY; Start 06/11/17 at 08:47; Stop 06/11/17 at 20:46; Status DC Info (PHARMACY MONITORING -- do not chart) 1 each PRN DAILY PRN MC SEE COMMENTS ; Start 06/11/17 at 09:00 Ceftriaxone Sodium (Rocephin) 2 gm DAILY IVP Last administered on 06/13/17 09 :16; Start 06/13/17 at 09:00 Dextrose/Lactated Ringer's 1,000 ml @ 60 mls/hr [id number] IV Last administered on 06/13/17 06:18; Start 06/12/17 at 12:00 Potassium Chloride 100 ml @ 100 mls/hr Q1H IV Last administered on 06/12/17t 12:15; Start 06/12/17 at 12:00; Stop 06/12/17 at 12:59; Status DC Active Scripts Active Cyclobenzaprine Hcl 10 Mg Tablet 1 Tab PO QHS Reported Coreg (Carvedilol) 6.25 Mg Tablet 1.5 Tab PO BID Entresto 49 mg-51 mg Tablet (Sacubitril/Valsartan) 1 Each Tablet 1 Each PO BID Atorvastatin Calcium 40 Mg Tablet 40 Mg PO HS Miralax (Polyethylene Glycol 3350) 17 Gm Powd.pack 1 Packet PO PRN DAILY PRN Colace (Docusate Sodium) 100 Mg Capsule 1 Cap PO DAILY Furosemide 20 Mg Tablet 40 Mg PO DAILY Gabapentin 300 Mg Capsule 600 Mg PO PRN TID PRN Vitamin B-12 (Cyanocobalamin (Vitamin B-12)) 1,000 Mcg Tablet 500 Mcg PO DAILY Lantus Solostar (Insulin Glargine,Hum.rec.anlog) 100 Unit/1 Ml Insuln.pen 25 Unit SQ QHS Novolog (Insulin Aspart) 100 Unit/1 Ml Cartridge 3 Unit SQ TIDAC Aspirin 81 Mg Tab.chew 81 Mg PO DAILY Metformin Hcl 500 Mg Tablet 1,000 Mg PO BID Vitals/I & O Vital Sign - Last 24 Hours 06/12/17 06/12/17 06/12/17 06/12/17 11:00 11:48 14:08 14:30 Temp 96.8 96.8 Pulse 72 Resp 18 B/P (MAP) 138/66 (90) Pulse Ox 99 O2 Delivery Nasal Cannula Room Air Room Air O2 Flow Rate 2.0 2.0 2.0 06/12/17 06/12/17 06/12/17 06/12/17 14:51 15:25 19:25 20:00 Temp 96.7 97.3 98.0 96.7 97.3 98.0 Pulse 71 75 Resp 18 20 B/P (MAP) 94/50 (65) 144/72 (96) Pulse Ox 96 99 O2 Delivery Nasal Cannula Nasal Cannula Nasal Cannula O2 Flow Rate 2.0 2.0 2.0 06/12/17 06/12/17 06/13/17 06/13/17 22:08 23:10 03:30 07:20 Temp 97.7 97.9 98.3 97.7 97.9 98.3 Pulse 76 83 87 88 Resp 20 20 18 B/P (MAP) 144/67 153/74 (100) 149/72 (97) 140/73 (95) Pulse Ox 97 99 95 O2 Delivery Nasal Cannula Nasal Cannula Nasal Cannula O2 Flow Rate 2.0 2.0 2.0 06/13/17 06/13/17 08:00 09:15 Pulse 88 B/P (MAP) 140/73 O2 Delivery Nasal Cannula O2 Flow Rate 2.0 Intake and Output 06/12/17 06/12/17 06/13/17 15:00 23:00 07:00 Intake Total 300 ml 1020 ml 752 ml Output Total 100 ml 750 ml 300 ml Balance 200 ml 270 ml 452 ml Nutrition Consultation Dietary Evaluation: Recommendations by RD: Increase Calorie Intake Comments: REC Cardiac/ADA diet Expected Outcomes/Goals: Diet advancement within 24 - 48 hrs - met, new goal established New goal: PO intake to meet > 75% est needs Interpretation of weight loss: >5% in 1 month Malnutrition Findings: Food and Nutrition Intake (Mod: <75% est energy req 7days Weight Status: Overweight SEGUNDO CABRAL MD Jun 13, 2017 10:34
[2017-06-13] MEDS: IV NORMAL SALINE 1000ML BAG 1,000 ML IV SCH (13:09)
[2017-06-13] MEDS: LACTOBACILLUS RHAMNOSUS GG 1 CAPSULE. PO SCH ×2 (14:41→21:11)
[2017-06-13] MEDS ORDERED: POLYETHYLENE GLYCOL 3350 17 GM PACKET. PO PRN (15:00)
[2017-06-13 15:04] VITALS: BP 149/73
--- NOTE | 2017-06-13 15:07 | PDOC ---
PROGRESS NOTES Chief Complaint Chief Complaint Cough, fever ASSESSMENT AND PLAN: 1. Sepsis: fevers, tachycardia improved 2. RML PNA: sputum cult with normal respir lucian, but blood cult pos 3. Bacteremia: S.pneumoniae. on ceftriaxone 4. ASHLEY on CKD, probable ATN 5. NSTEMI: demand response. s/p PCI/stent to LAD, chest pain free. Continue current meds including DAPT. F/U with card on O/P basis 6. CHF exacerbation: systolic cardiomyopathy with EF 20%, severe global hypokinesis. 7. Pacemaker/AICD in situ 8. HTN: borderline control. restart home meds 9. HLD: restart statin 10. DM2: on metformin at home; hold for now, ISS 11. Anemia: chronic dz 12. Thrombocytopenia: 2/2 sepsis. resolving 13. R shoulder pain: musculoskeletal 14. Obesity (BMI 33) History of Present Illness History of Present Illness better today. cough ongoing, has difficulties raising sputum Vitals Vitals Vital Signs Date Time Temp Pulse Resp B/P (MAP) Pulse Ox O2 Delivery O2 Flow Rate FiO2 06/13/17 10:33 98.1 74 18 159/75 (103) 99 Nasal Cannula 2.0 98.1 Physical Exam General: Alert Heart: Regular rate Lungs: Clear, Other Abdomen: Normal bowel sounds, Soft, No tenderness Extremities: No cyanosis, No edema Skin: No rashes, No significant lesion Labs LABS Laboratory Tests Test 06/12/17 16:42 06/12/17 20:35 06/13/17 07:25 06/13/17 07:26 Glucose (Fingerstick) 90 mg/dL (70-99) 135 mg/dL (70-99) 128 mg/dL (70-99) Sodium Level 141 mmol/L (136-145) Potassium Level 3.7 mmol/L (3.5-5.1) Chloride Level 105 mmol/L (98-107) Carbon Dioxide Level 31 mmol/L (21-32) Anion Gap 5 (6-14) Blood Urea Nitrogen 21 mg/dL (7-20) Creatinine 1.7 mg/dL (0.6-1.0) Estimated GFR (Cockcroft-Gault) 37.1 Glucose Level 188 mg/dL (70-99) Calcium Level 8.7 mg/dL (8.5-10.1) Phosphorus Level 2.4 mg/dL (2.6-4.7) Albumin 1.8 g/dL (3.4-5.0) Test 06/13/17 12:05 Glucose (Fingerstick) 204 mg/dL (70-99) Comment Review of Relevant I have reviewed the following items bro (where applicable) has been applied. Labs Laboratory Tests Test 06/11/17 16:20 06/11/17 20:31 06/12/17 03:30 06/12/17 07:39 Glucose (Fingerstick) 106 mg/dL (70-99) 141 mg/dL (70-99) 54 mg/dL (70-99) Sodium Level 141 mmol/L (136-145) Potassium Level 3.0 mmol/L (3.5-5.1) Chloride Level 105 mmol/L (98-107) Carbon Dioxide Level 29 mmol/L (21-32) Anion Gap 7 (6-14) Blood Urea Nitrogen 22 mg/dL (7-20) Creatinine 1.6 mg/dL (0.6-1.0) Estimated GFR (Cockcroft-Gault) 39.8 Glucose Level 85 mg/dL (70-99) Calcium Level 8.0 mg/dL (8.5-10.1) Phosphorus Level 1.9 mg/dL (2.6-4.7) Albumin 1.7 g/dL (3.4-5.0) Test 06/12/17 08:08 06/12/17 09:22 06/12/17 11:21 06/12/17 12:08 Glucose (Fingerstick) 73 mg/dL (70-99) 91 mg/dL (70-99) 47 mg/dL (70-99) 111 mg/dL (70-99) Test 06/12/17 16:42 06/12/17 20:35 06/13/17 07:25 06/13/17 07:26 Glucose (Fingerstick) 90 mg/dL (70-99) 135 mg/dL (70-99) 128 mg/dL (70-99) Sodium Level 141 mmol/L (136-145) Potassium Level 3.7 mmol/L (3.5-5.1) Chloride Level 105 mmol/L (98-107) Carbon Dioxide Level 31 mmol/L (21-32) Anion Gap 5 (6-14) Blood Urea Nitrogen 21 mg/dL (7-20) Creatinine 1.7 mg/dL (0.6-1.0) Estimated GFR (Cockcroft-Gault) 37.1 Glucose Level 188 mg/dL (70-99) Calcium Level 8.7 mg/dL (8.5-10.1) Phosphorus Level 2.4 mg/dL (2.6-4.7) Albumin 1.8 g/dL (3.4-5.0) Test 06/13/17 12:05 Glucose (Fingerstick) 204 mg/dL (70-99) Laboratory Tests Test 06/12/17 16:42 06/12/17 20:35 06/13/17 07:25 06/13/17 07:26 Glucose (Fingerstick) 90 mg/dL (70-99) 135 mg/dL (70-99) 128 mg/dL (70-99) Sodium Level 141 mmol/L (136-145) Potassium Level 3.7 mmol/L (3.5-5.1) Chloride Level 105 mmol/L (98-107) Carbon Dioxide Level 31 mmol/L (21-32) Anion Gap 5 (6-14) Blood Urea Nitrogen 21 mg/dL (7-20) Creatinine 1.7 mg/dL (0.6-1.0) Estimated GFR (Cockcroft-Gault) 37.1 Glucose Level 188 mg/dL (70-99) Calcium Level 8.7 mg/dL (8.5-10.1) Phosphorus Level 2.4 mg/dL (2.6-4.7) Albumin 1.8 g/dL (3.4-5.0) Test 06/13/17 12:05 Glucose (Fingerstick) 204 mg/dL (70-99) Microbiology 06/06/17 Blood Culture - Final, Complete NO GROWTH AFTER 5 DAYS 06/07/17 - Final, Complete 06/07/17 - Final, Complete 06/07/17 - Final, Complete 06/07/17 Gram Stain Evaluation - Final, Complete 06/07/17 Sputum Culture - Final, Complete 06/07/17 Sputum Result 1 - Final, Complete 06/07/17 Sputum Result 2 - Final, Complete 06/06/17 Urine Culture - Final, Complete 06/06/17 Urine Culture Result 1 (TANJA) - Final, Complete Medications Current Medications Ondansetron HCl (Zofran) 8 mg 1X ONCE IV Last administered on 06/05/17 18:36 ; Start 06/05/17 at 18:30; Stop 06/05/17 at 18:31; Status DC Aspirin (Children'S Aspirin) 324 mg 1X ONCE PO Last administered on 19:48; Start 06/05/17 at 19:45; Stop 06/05/17 at 19:46; Status DC Sodium Chloride 1,000 ml @ 1,000 mls/hr 1X ONCE IV Last administered on 06/05 20:12; Start 06/05/17 at 20:00; Stop 06/05/17 at 20:59; Status DC Cefepime HCl 2 gm/ Dextrose 100 ml @ 200 mls/hr 1X ONCE IV ; Start 06/05/17 at 20:00; Stop 06/05/17 at 20:04; Status DC Cefepime HCl (Maxipime) 2 gm Q12HR IVP Last administered on 06/08/17 09:02; Start 06/05/17 at 21:00; Stop 06/08/17 at 09:21; Status DC Ondansetron HCl (Zofran) 4 mg PRN Q8HRS PRN IV NAUSEA/VOMITING; Start at 20:15; Stop 06/06/17 at 08:52; Status DC Sodium Chloride 1,000 ml @ 75 mls/hr [id number] IV Last administered on 10:30; Start 06/05/17 at 20:06; Stop 06/06/17 at 20:05; Status DC Albuterol/ Ipratropium (Duoneb) 3 ml RTQID NEB ; Start 06/06/17 at 08:00; Stop 06/07/17 at 07:59; Status DC Acetaminophen (Tylenol) 650 mg PRN Q6HRS PRN PO fever Last administered on 16:33; Start 06/05/17 at 20:15; Stop 06/09/17 at 16:31; Status DC Vancomycin HCl (Vanco Per Pharmacy) 1 each PRN DAILY PRN MC SEE COMMENTS Last administered on 06/06/17 15:14; Start 06/05/17 at 20:15; Stop 06/07/17 at 09 :14; Status DC Acetaminophen (Tylenol) 1,000 mg 1X ONCE PO Last administered on 06/05/17 20 :17; Start 06/05/17 at 20:15; Stop 06/05/17 at 20:21; Status DC Vancomycin HCl 2 gm/Dextrose/ Sodium Chloride 500 ml @ 250 mls/hr 1X ONCE IV Last administered on 06/05/17 21:45; Start 06/05/17 at 21:00; Stop 06/05/17 at 22:59; Status DC Vancomycin HCl 1.25 gm/Sodium Chloride 250 ml @ 167 mls/hr Q24H IV ; Start at 22:00; Stop 06/06/17 at 22:00; Status DC Vancomycin HCl 1 each 1X ONCE MC ; Start 06/07/17 at 20:00; Stop 06/07/17 at 20:00; Status DC Norepinephrine Bitartrate 250 ml @ 0 mls/hr CONT PRN IV SEE I/O RECORD Last administered on 06/05/17 23:13; Start 06/05/17 at 22:45; Stop 06/10/17 at 13 :22; Status DC Magnesium Sulfate/ Dextrose 50 ml @ 25 mls/hr PRN DAILY PRN IV for Mag < 1.7 on am labs Last administered on 06/06/17 12:40; Start 06/06/17 at 08:30 Ondansetron HCl (Zofran) 4 mg PRN Q6HRS PRN IV NAUSEA/VOMITING; Start at 09:00; Stop 06/07/17 at 08:59; Status DC Guaifenesin (Robitussin Dm) 10 ml QID PO Last administered on 06/13/17 09:15 ; Start 06/06/17 at 09:00 Heparin Sodium (Porcine) (Heparin Sodium) 4,000 unit 1X ONCE IV Last administered on 06/06/17 10:19; Start 06/06/17 at 09:15; Stop 06/06/17 at 09 :21; Status DC Heparin Sodium/ Dextrose 500 ml @ 0 mls/hr CONT PRN IV SEE I/O RECORD Last administered on 06/08/17 16:49; Start 06/06/17 at 09:15; Stop 06/10/17 at 13 :25; Status DC Heparin Sodium (Porcine) (Heparin Sodium) 2,000 unit PRN Q6HRS PRN IV FOR UFH LEVEL LESS THAN 0.2; Start 06/06/17 at 09:15; Stop 06/10/17 at 13:25; Status DC Furosemide (Lasix) 40 mg 1X ONCE IVP Last administered on 06/06/17 10:09; Start 06/06/17 at 10:00; Stop 06/06/17 at 10:01; Status DC Aspirin (Ecotrin) 81 mg DAILYWBKFT PO Last administered on 06/09/17 08:46; Start 06/07/17 at 08:00; Stop 06/10/17 at 09:36; Status DC Lactobacillus Rhamnosus (Culturelle) 1 cap BID PO Last administered on 22:07; Start 06/06/17 at 21:00 Acetaminophen/ Hydrocodone Bitart (Lortab 5/325) 1 tab PRN Q6HRS PRN PO PAIN Last administered on 06/12/17 06:10; Start 06/06/17 at 20:30 Capsaicin (Zostrix) 1 nelson TID TP Last administered on 06/13/17 09:16; Start 06/06/17 at 21:00 Benzonatate (Tessalon Perle) 100 mg TID PO Last administered on 06/13/17 09: 15; Start 06/07/17 at 04:00 Magnesium Sulfate/ Dextrose 50 ml @ 25 mls/hr 1X ONCE IV Last administered on 06/07/17 08:55; Start 06/07/17 at 09:00; Stop 06/07/17 at 10:59; Status DC Docusate Sodium (Colace) 100 mg DAILY PO Last administered on 06/13/17 09:15 ; Start 06/07/17 at 10:30 Metoprolol Tartrate (Lopressor) 12.5 mg BID PO Last administered on 06/13/17 09:15; Start 06/07/17 at 13:30 Info (Anti-Coagulation Monitoring By Pharmacy) 1 each PRN DAILY PRN MC SEE COMMENTS Last administered on 06/08/17 14:20; Start 06/08/17 at 08:00; Stop 06/10/17 at 13:25; Status DC Ondansetron HCl (Zofran) 4 mg PRN Q6HRS PRN IV NAUSEA/VOMITING 1ST CHOICE Last administered on 06/12/17 14:09; Start 06/08/17 at 09:00 Ceftriaxone Sodium 2 gm/ Dextrose 100 ml @ 200 mls/hr Q12HR IV ; Start at 21:00; Status UNV Levofloxacin (Levaquin) 250 mg 1X ONCE PO ; Start 06/08/17 at 09:30; Stop at 09:30; Status DC Ceftriaxone Sodium (Rocephin) 2 gm Q12HR IVP Last administered on 06/12/17 08 :50; Start 06/08/17 at 10:00; Stop 06/12/17 at 10:05; Status DC Insulin Detemir (Levemir) 10 units QHS SQ Last administered on 06/11/17 20:36 ; Start 06/08/17 at 21:00; Stop 06/12/17 at 12:21; Status DC Insulin Aspart (NovoLOG) 0-9 UNITS TIDWMEALS SQ Last administered on 12:53; Start 06/08/17 at 12:00 Dextrose (Dextrose 50%-Water Syringe) 12.5 gm PRN Q15MIN PRN IV SEE COMMENTS Last administered on 06/12/17 11:27; Start 06/08/17 at 09:45 Ferrous Sulfate (Feosol) 325 mg DAILYWBKFT PO Last administered on 06/13/17 09:14; Start 06/08/17 at 11:30 Prednisone (Prednisone) 50 mg TID@0700,1500,2300 PO Last administered on 06:27; Start 06/08/17 at 15:00; Stop 06/09/17 at 07:01; Status DC Diphenhydramine HCl (Benadryl) 50 mg 1X ONCE PO Last administered on 14:35; Start 06/09/17 at 07:00; Stop 06/09/17 at 07:01; Status DC Famotidine (Pepcid) 20 mg 1X ONCE PO Last administered on 06/09/17 14:35; Start 06/09/17 at 07:00; Stop 06/09/17 at 07:01; Status DC Sodium Chloride 1,000 ml @ 60 mls/hr [id number] IV Last administered on 04:10; Start 06/08/17 at 20:00; Stop 06/12/17 at 11:52; Status DC Methylprednisolone Sodium Succinate (SOLU-Medrol 125MG VIAL) 125 mg 1X ONCE IV ; Start 06/09/17 at 08:00; Stop 06/09/17 at 08:01; Status Cancel Diphenhydramine HCl (Benadryl) 50 mg 1X ONCE IVP ; Start 06/09/17 at 08:00; Stop 06/09/17 at 08:01; Status DC Acetylcysteine (Mucomyst 20% Oral Solution) 600 mg BID PO Last administered on 06/10/17 20:21; Start 06/09/17 at 08:00; Stop 06/11/17 at 07:59; Status DC Acetaminophen (Tylenol) 650 mg 1X ONCE PO Last administered on 06/09/17 14: 35; Start 06/09/17 at 08:00; Stop 06/09/17 at 08:01; Status DC Lidocaine/Sodium Bicarbonate (Buffered Lidocaine 1%) 3 ml STK-MED ONCE IJ ; Start 06/09/17 at 08:16; Stop 06/09/17 at 08:17; Status DC Heparin Sodium (Porcine) (Heparin Sodium) 10,000 unit STK-MED ONCE .ROUTE ; Start 06/09/17 at 08:16; Stop 06/09/17 at 08:17; Status DC Lidocaine/Sodium Bicarbonate (Buffered Lidocaine 1%) 6 ml 1X ONCE IJ Last administered on 06/09/17 09:25; Start 06/09/17 at 09:30; Stop 06/09/17 at 09 :31; Status DC Heparin Sodium (Porcine) (Heparin Sodium) 2,500 unit 1X ONCE INT CAT Last administered on 06/09/17 09:25; Start 06/09/17 at 09:30; Stop 06/09/17 at 09 :31; Status DC Methylprednisolone Sodium Succinate (SOLU-Medrol 125MG VIAL) 125 mg 1X ONCE IV Last administered on 06/09/17 14:36; Start 06/09/17 at 14:30; Stop at 14:31; Status DC Heparin Sodium/ Sodium Chloride 500 ml @ As Directed STK-MED ONCE .ROUTE ; Start 06/09/17 at 14:36; Stop 06/09/17 at 14:37; Status DC Iodixanol (Visipaque 320) 100 ml STK-MED ONCE .ROUTE ; Start 06/09/17 at 14:36 ; Stop 06/09/17 at 14:37; Status DC Lidocaine HCl 20 ml STK-MED ONCE .ROUTE ; Start 06/09/17 at 14:37; Stop at 14:38; Status DC Darbepoetin Joey (Aranesp) 60 mcg Fr SQ Last administered on 06/09/17 20:54; Start 06/09/17 at 21:00 Fentanyl Citrate (Fentanyl 2ml Vial) 100 mcg STK-MED ONCE .ROUTE ; Start at 15:02; Stop 06/09/17 at 15:03; Status DC Midazolam HCl (Versed) 2 mg STK-MED ONCE .ROUTE ; Start 06/09/17 at 15:02; Stop 06/09/17 at 15:03; Status DC Bivalirudin (Angiomax) 250 mg STK-MED ONCE IV ; Start 06/09/17 at 15:19; Stop 06/09/17 at 15:20; Status DC Iodixanol (Visipaque 320) 100 ml STK-MED ONCE .ROUTE ; Start 06/09/17 at 15:24 ; Stop 06/09/17 at 15:25; Status DC Clopidogrel Bisulfate (Plavix) 75 mg STK-MED ONCE .ROUTE ; Start 06/09/17 at 15 :37; Stop 06/09/17 at 15:38; Status DC Heparin Sodium/ Sodium Chloride 1,000 unit 1X ONCE IART Last administered on 06/09/17 15:55; Start 06/09/17 at 15:45; Stop 06/09/17 at 15:48; Status DC Midazolam HCl (Versed) 0.5 mg 1X ONCE IV Last administered on 06/09/17 15:54 ; Start 06/09/17 at 15:45; Stop 06/09/17 at 15:48; Status DC Fentanyl Citrate (Fentanyl 2ml Vial) 12.5 mcg 1X ONCE IV Last administered on 06/09/17 16:00; Start 06/09/17 at 15:45; Stop 06/09/17 at 15:48; Status DC Iodixanol (Visipaque 320) 154 ml 1X ONCE IART Last administered on 06/09/17 15:55; Start 06/09/17 at 15:45; Stop 06/09/17 at 15:48; Status DC Bivalirudin (Angiomax) 250 mg 1X ONCE IV Last administered on 06/09/17 15:59 ; Start 06/09/17 at 15:45; Stop 06/09/17 at 15:48; Status DC Clopidogrel Bisulfate (Plavix) 600 mg 1X ONCE PO Last administered on 16:00; Start 06/09/17 at 15:45; Stop 06/09/17 at 15:48; Status DC Lidocaine HCl 20 ml 1X ONCE IJ Last administered on 06/09/17 15:55; Start 06/09/17 at 15:45; Stop 06/09/17 at 15:48; Status DC Info (Do NOT chart on this entry -- for MONITORING) 1 each PRN DAILY PRN MC SEE COMMENTS; Start 06/09/17 at 16:00; Stop 06/11/17 at 15:59; Status DC Clopidogrel Bisulfate (Plavix) 75 mg STK-MED ONCE .ROUTE ; Start 06/09/17 at 15 :51; Stop 06/09/17 at 15:52; Status DC Aspirin (Children'S Aspirin) 244 mg 1X ONCE PO Last administered on 16:03; Start 06/09/17 at 16:15; Stop 06/09/17 at 16:16; Status DC Aspirin (Ecotrin) 325 mg DAILYWBKFT PO Last administered on 06/13/17 09:15; Start 06/10/17 at 08:00 Clopidogrel Bisulfate (Plavix) 75 mg DAILYWBKFT PO Last administered on 09:14; Start 06/10/17 at 08:00 Atorvastatin Calcium (Lipitor) 40 mg QHS PO Last administered on 06/12/17 22: 07; Start 06/09/17 at 21:00 Acetaminophen (Tylenol) 650 mg PRN Q6HRS PRN PO MILD PAIN / TEMP; Start at 16:30 Fentanyl Citrate (Fentanyl 2ml Vial) 50 mcg PRN Q1HR PRN IV MODERATE OR SEVERE PAIN Last administered on 06/12/17t 14:08; Start 06/09/17 at 16:30 Nitroglycerin (Nitrostat) 0.4 mg PRN Q5MIN PRN SL CHEST PAIN; Start 06/09/17 at 16:30 Sodium Chloride 1,000 ml @ 1,000 mls/hr Q1H PRN IV hypotension; Start at 08:25; Stop 06/10/17 at 14:24; Status DC Diphenhydramine HCl (Benadryl) 25 mg 1X PRN PRN IV ITCHING; Start 06/10/17 at 08:30; Stop 06/11/17 at 08:29; Status DC Diphenhydramine HCl (Benadryl) 25 mg 1X PRN PRN IV ITCHING; Start 06/10/17 at 08:30; Stop 06/11/17 at 08:29; Status DC Sodium Chloride (Normal Saline Flush) 10 ml 1X PRN PRN IV AP catheter pack; Start 06/10/17 at 08:30; Stop 06/11/17 at 08:29; Status DC Sodium Chloride (Normal Saline Flush) 10 ml 1X PRN PRN IV [employer] catheter pack; Start 06/10/17 at 08:30; Stop 06/11/17 at 08:29; Status DC Sodium Chloride 1,000 ml @ 400 mls/hr Q2H30M PRN IV PATENCY; Start 06/10/17 at 08:25; Stop 06/10/17 at 20:24; Status DC Info (PHARMACY MONITORING -- do not chart) 1 each PRN DAILY PRN MC SEE COMMENTS ; Start 06/10/17 at 08:30; Stop 06/11/17 at 15:07; Status DC Sodium Chloride 1,000 ml @ 1,000 mls/hr Q1H PRN IV hypotension; Start at 08:47; Stop 06/11/17 at 14:46; Status DC Diphenhydramine HCl (Benadryl) 25 mg 1X PRN PRN IV ITCHING; Start 06/11/17 at 09:00; Stop 06/12/17 at 08:59; Status DC Diphenhydramine HCl (Benadryl) 25 mg 1X PRN PRN IV ITCHING; Start 06/11/17 at 09:00; Stop 06/12/17 at 08:59; Status DC Sodium Chloride (Normal Saline Flush) 10 ml 1X PRN PRN IV AP catheter pack; Start 06/11/17 at 09:00; Stop 06/12/17 at 08:59; Status DC Sodium Chloride (Normal Saline Flush) 10 ml 1X PRN PRN IV [employer] catheter pack; Start 06/11/17 at 09:00; Stop 06/12/17 at 08:59; Status DC Sodium Chloride 1,000 ml @ 400 mls/hr Q2H30M PRN IV PATENCY; Start 06/11/17 at 08:47; Stop 06/11/17 at 20:46; Status DC Info (PHARMACY MONITORING -- do not chart) 1 each PRN DAILY PRN MC SEE COMMENTS ; Start 06/11/17 at 09:00 Ceftriaxone Sodium (Rocephin) 2 gm DAILY IVP Last administered on 06/13/17 09 :16; Start 06/13/17 at 09:00 Dextrose/Lactated Ringer's 1,000 ml @ 60 mls/hr [id number] IV Last administered on 06/13/17 06:18; Start 06/12/17 at 12:00 Potassium Chloride 100 ml @ 100 mls/hr Q1H IV Last administered on 06/12/17 12:15; Start 06/12/17 at 12:00; Stop 06/12/17 at 12:59; Status DC Sodium Chloride 1,000 ml @ 60 mls/hr [id number] IV Last administered on 13:09; Start 06/13/17 at 13:15 Active Scripts Active Cyclobenzaprine Hcl 10 Mg Tablet 1 Tab PO QHS Reported Coreg (Carvedilol) 6.25 Mg Tablet 1.5 Tab PO BID Entresto 49 mg-51 mg Tablet (Sacubitril/Valsartan) 1 Each Tablet 1 Each PO BID Atorvastatin Calcium 40 Mg Tablet 40 Mg PO HS Miralax (Polyethylene Glycol 3350) 17 Gm Powd.pack 1 Packet PO PRN DAILY PRN Colace (Docusate Sodium) 100 Mg Capsule 1 Cap PO DAILY Furosemide 20 Mg Tablet 40 Mg PO DAILY Gabapentin 300 Mg Capsule 600 Mg PO PRN TID PRN Vitamin B-12 (Cyanocobalamin (Vitamin B-12)) 1,000 Mcg Tablet 500 Mcg PO DAILY Lantus Solostar (Insulin Glargine,Hum.rec.anlog) 100 Unit/1 Ml Insuln.pen 25 Unit SQ QHS Novolog (Insulin Aspart) 100 Unit/1 Ml Cartridge 3 Unit SQ TIDAC Aspirin 81 Mg Tab.chew 81 Mg PO DAILY Metformin Hcl 500 Mg Tablet 1,000 Mg PO BID Vitals/I & O Vital Sign - Last 24 Hours 06/12/17 06/12/17 06/12/17 06/12/17 14:51 15:25 19:25 20:00 Temp 96.7 97.3 98.0 96.7 97.3 98.0 Pulse 71 75 Resp 18 20 B/P (MAP) 94/50 (65) 144/72 (96) Pulse Ox 96 99 O2 Delivery Nasal Cannula Nasal Cannula Nasal Cannula O2 Flow Rate 2.0 2.0 2.0 06/12/17 06/12/17 06/13/17 06/13/17 22:08 23:10 03:30 07:20 Temp 97.7 97.9 98.3 97.7 97.9 98.3 Pulse 76 83 87 88 Resp 20 20 18 B/P (MAP) 144/67 153/74 (100) 149/72 (97) 140/73 (95) Pulse Ox 97 99 95 O2 Delivery Nasal Cannula Nasal Cannula Nasal Cannula O2 Flow Rate 2.0 2.0 2.0 06/13/17 06/13/17 06/13/17 08:00 09:15 10:33 Temp 98.1 98.1 Pulse 88 74 Resp 18 B/P (MAP) 140/73 159/75 (103) Pulse Ox 99 O2 Delivery Nasal Cannula Nasal Cannula O2 Flow Rate 2.0 2.0 Intake and Output 06/12/17 06/12/17 06/13/17 15:00 23:00 07:00 Intake Total 300 ml 1020 ml 752 ml Output Total 100 ml 750 ml 300 ml Balance 200 ml 270 ml 452 ml Nutrition Consultation Dietary Evaluation: Recommendations by RD: Increase Calorie Intake Comments: REC Cardiac/ADA diet Expected Outcomes/Goals: Diet advancement within 24 - 48 hrs - met, new goal established New goal: PO intake to meet > 75% est needs Interpretation of weight loss: >5% in 1 month Malnutrition Findings: Food and Nutrition Intake (Mod: <75% est energy req 7days Weight Status: Overweight LOI SYKES MD Jun 13, 2017 15:07
[2017-06-13 15:17] LABS: HEP B SURFACE ABDY Non Reactive (.)
--- NOTE | 2017-06-13 16:25 | PDOC ---
SUBJECTIVE ROS ASHLEY/ CKD III Doign and feeling a little better after previous HD - appears to have more facial edema to me CVS: no Orthopnea, no CP RESP: no SOB, no PHILLIPS GI: no Nausea, no Vomiting : no Dysuria, no Urgency OBJECTIVE Vital Signs Vital Signs Date Time Temp Pulse Resp B/P (MAP) Pulse Ox O2 Delivery O2 Flow Rate FiO2 06/13/17 15:04 98.6 98 18 149/73 (98) 93 Nasal Cannula 2.0 98.6 I & 0 Intake and Output 06/13/17 07:00 Intake Total 2072 ml Output Total 1150 ml Balance 922 ml Intake Oral 850 ml IV Total 1222 ml Output Urine Total 1050 ml Emesis 100 ml # Voids 2 PHYSICAL EXAM Physical Exam General Appearance: Awake Alert Oriented x 3 In no Distress; mild facial pallor/ swelling Eyes: VIsion: Dec on Left - Almost blind on Rt; Conjunctiva Normal EN: No EN Drainage Mucous Memb. moist Neck: no JVD no JVP Supple no Thyromegaly CVS: S1 S2 + Murmur No Gallop No Rub no Edema x left upper ext Resp: no Rales no Rhonchi no Acc. Muscle use GI: BS +ve NO Bruit Non Tender Non Distended : no CVA tenderness; no Suprapubic Tenderness Assessment & Plan: ASHLEY - . Current FLuid and E-lyte status does not necessitate emergent need for Dialysis. Will re-evaluate for Dialysis in am Oliguria - suspect Pre-Renal - now better with IVF but facial swelling is worse. No REsp issues currently. D/c IVF and watch Anorexia - improved CKD III - DM/ HTNsive / NS cannot be ruled out Anemia: ( fe def state noteD ) PO Iron, EPO as ordered in setting of NSTEMI + CKDIII Sys CHF with worsening of previously non-ischemic ? Cardiomyopathy -LHC / PCI done; clinically OK currently; Wt gain noted. watch off of IVF ^ed Protein gap - ve PEPS as noted SEv ^ed PTH - check Vit D Discussed Plan of Care and prognosis etc. at length re HD with pt and RN at bedside COMMENT/RELEVANT DATA Meds Current Medications Medications (Trade) Dose Ordered Sig/Wilfrid Start Time Stop Time Status Last Admin Dose Admin Acetaminophen (Tylenol) 650 mg PRN Q6HRS PRN 06/09/17 16:30 Acetaminophen/ Hydrocodone Bitart (Lortab 5/325) 1 tab PRN Q6HRS PRN 06/06/17 20:30 06/12/17 06:10 1 TAB Acetylcysteine (Mucomyst 20% Oral Solution) 600 mg BID 06/09/17 08:00 06/11/17 07:59 DC 06/10/17 20:21 600 MG Albuterol/ Ipratropium (Duoneb) 3 ml RTQID 06/06/17 08:00 06/07/17 07:59 DC Aspirin (Children'S Aspirin) 81 mg DAILY 06/14/17 09:00 Aspirin (Ecotrin) 325 mg DAILYWBKFT 06/10/17 08:00 06/13/17 15:29 DC 06/13/17 09:15 325 MG Atorvastatin Calcium (Lipitor) 40 mg HS 06/13/17 21:00 Cancel Benzonatate (Tessalon Perle) 100 mg TID 06/07/17 04:00 06/13/17 14:42 100 MG Bivalirudin (Angiomax) 250 mg 1X ONCE 06/09/17 15:45 06/09/17 15:48 DC 06/09/17 15:59 250 MG Capsaicin (Zostrix) 1 nelson TID 06/06/17 21:00 06/13/17 14:41 1 NELSON Carvedilol (Coreg) 9.375 mg BIDWMEALS 06/13/17 17:00 Cefepime HCl (Maxipime) 2 gm Q12HR 06/05/17 21:00 06/08/17 09:21 DC 06/08/17 09:02 2 GM Cefepime HCl 2 gm/ Dextrose 100 ml @ 200 mls/hr 1X ONCE 06/05/17 20:00 06/05/17 20:04 DC Ceftriaxone Sodium 2 gm/ Dextrose 100 ml @ 200 mls/hr Q12HR 06/08/17 21:00 UNV Ceftriaxone Sodium (Rocephin) 2 gm DAILY 06/13/17 09:00 06/13/17 09:16 2 GM Clopidogrel Bisulfate (Plavix) 75 mg DAILYWBKFT 06/10/17 08:00 06/13/17 09:14 75 MG Cyanocobalamin (Vitamin B-12) 500 mcg DAILY 06/14/17 09:00 Cyclobenzaprine HCl (Flexeril) 10 mg QHS 06/13/17 21:00 Darbepoetin Joey (Aranesp) 60 mcg Fr 06/09/17 21:00 06/09/17 20:54 60 MCG Dextrose (Dextrose 50%-Water Syringe) 12.5 gm PRN Q15MIN PRN 06/08/17 09:45 06/12/17 11:27 25 GM Dextrose/Lactated Ringer's 1,000 ml @ 60 mls/hr [id number] 06/12/17 12:00 06/13/17 06:18 60 MLS/HR Diphenhydramine HCl (Benadryl) 25 mg 1X PRN PRN 06/11/17 09:00 06/12/17 08:59 DC Docusate Sodium (Colace) 100 mg DAILY 06/14/17 09:00 Famotidine (Pepcid) 20 mg 1X ONCE 06/09/17 07:00 06/09/17 07:01 DC 06/09/17 14:35 20 MG Fentanyl Citrate (Fentanyl 2ml Vial) 50 mcg PRN Q1HR PRN 06/09/17 16:30 06/12/17 14:08 50 MCG Ferrous Sulfate (Feosol) 325 mg DAILYWBKFT 06/08/17 11:30 06/13/17 09:14 325 MG Furosemide (Lasix) 40 mg DAILY 06/14/17 09:00 Gabapentin (Neurontin) 600 mg PRN TID PRN 06/13/17 21:00 Guaifenesin (Robitussin Dm) 10 ml QID 06/06/17 09:00 06/13/17 14:41 10 ML Heparin Sodium (Porcine) (Heparin Sodium) 2,500 unit 1X ONCE 06/09/17 09:30 06/09/17 09:31 DC 06/09/17 09:25 2,500 UNIT Heparin Sodium/ Dextrose 500 ml @ 0 mls/hr CONT PRN 06/06/17 09:15 06/10/17 13:25 DC 06/08/17 16:49 20.9 MLS/HR Heparin Sodium/ Sodium Chloride 1,000 unit 1X ONCE 06/09/17 15:45 06/09/17 15:48 DC 06/09/17 15:55 1,000 UNIT Info (Anti-Coagulation Monitoring By Pharmacy) 1 each PRN DAILY PRN 06/08/17 08:00 06/10/17 13:25 DC 06/08/17 14:20 1 EACH Info (Do NOT chart on this entry -- for MONITORING) 1 each PRN DAILY PRN 06/09/17 16:00 06/11/17 15:59 DC Info (PHARMACY MONITORING -- do not chart) 1 each PRN DAILY PRN 06/11/17 09:00 Insulin Aspart (NovoLOG) 3 units TIDAC 06/13/17 16:30 Insulin Detemir (Levemir) 25 units QHS 06/13/17 21:00 Iodixanol (Visipaque 320) 154 ml 1X ONCE 06/09/17 15:45 06/09/17 15:48 DC 06/09/17 15:55 154 ML Lactobacillus Rhamnosus (Culturelle) 1 cap BID 06/06/17 21:00 06/13/17 14:41 1 CAP Levofloxacin (Levaquin) 250 mg 1X ONCE 06/08/17 09:30 06/08/17 09:30 DC Lidocaine HCl 20 ml 1X ONCE 06/09/17 15:45 06/09/17 15:48 DC 06/09/17 15:55 20 ML Lidocaine/Sodium Bicarbonate (Buffered Lidocaine 1%) 6 ml 1X ONCE 06/09/17 09:30 06/09/17 09:31 DC 06/09/17 09:25 6 ML Magnesium Sulfate/ Dextrose 50 ml @ 25 mls/hr 1X ONCE 06/07/17 09:00 06/07/17 10:59 DC 06/07/17 08:55 25 MLS/HR Methylprednisolone Sodium Succinate (SOLU-Medrol 125MG VIAL) 125 mg 1X ONCE 06/09/17 14:30 06/09/17 14:31 DC 06/09/17 14:36 125 MG Metoprolol Tartrate (Lopressor) 12.5 mg BID 06/07/17 13:30 06/13/17 09:15 12.5 MG Midazolam HCl (Versed) 0.5 mg 1X ONCE 06/09/17 15:45 06/09/17 15:48 DC 06/09/17 15:54 0.5 MG Nitroglycerin (Nitrostat) 0.4 mg PRN Q5MIN PRN 06/09/17 16:30 Norepinephrine Bitartrate 250 ml @ 0 mls/hr CONT PRN 06/05/17 22:45 06/10/17 13:22 DC 06/05/17 23:13 9.375 MLS/HR Ondansetron HCl (Zofran) 4 mg PRN Q6HRS PRN 06/08/17 09:00 06/12/17 14:09 4 MG Polyethylene Glycol (miraLAX PACKET) 17 gm PRN DAILY PRN 06/13/17 15:00 Potassium Chloride 100 ml @ 100 mls/hr Q1H 06/12/17 12:00 06/12/17 12:59 DC 06/12/17 12:15 100 MLS/HR Prednisone (Prednisone) 50 mg TID@0700,1500,2300 06/08/17 15:00 06/09/17 07:01 DC 06/09/17 06:27 50 MG Sacubitril/ Valsartan (Entresto 49 Mg-51 Mg) 1 tab BID 06/13/17 21:00 Sodium Chloride 1,000 ml @ 60 mls/hr [id number] 06/13/17 13:15 06/13/17 13:09 60 MLS/HR Sodium Chloride (Normal Saline Flush) 10 ml 1X PRN PRN 06/11/17 09:00 06/12/17 08:59 DC Vancomycin HCl 1 each 1X ONCE 06/07/17 20:00 06/07/17 20:00 DC Vancomycin HCl (Vanco Per Pharmacy) 1 each PRN DAILY PRN 06/05/17 20:15 06/07/17 09:14 DC 06/06/17 15:14 1 EACH Vancomycin HCl 1.25 gm/Sodium Chloride 250 ml @ 167 mls/hr Q24H 06/06/17 22:00 06/06/17 22:00 DC Vancomycin HCl 2 gm/Dextrose/ Sodium Chloride 500 ml @ 250 mls/hr 1X ONCE 06/05/17 21:00 06/05/17 22:59 DC 06/05/17 21:45 250 MLS/HR Lab Laboratory Tests Test 06/12/17 16:42 06/12/17 20:35 06/13/17 07:25 06/13/17 07:26 Glucose (Fingerstick) 90 mg/dL (70-99) 135 mg/dL (70-99) 128 mg/dL (70-99) Sodium Level 141 mmol/L (136-145) Potassium Level 3.7 mmol/L (3.5-5.1) Chloride Level 105 mmol/L (98-107) Carbon Dioxide Level 31 mmol/L (21-32) Anion Gap 5 (6-14) Blood Urea Nitrogen 21 mg/dL (7-20) Creatinine 1.7 mg/dL (0.6-1.0) Estimated GFR (Cockcroft-Gault) 37.1 Glucose Level 188 mg/dL (70-99) Calcium Level 8.7 mg/dL (8.5-10.1) Phosphorus Level 2.4 mg/dL (2.6-4.7) Albumin 1.8 g/dL (3.4-5.0) Test 06/13/17 12:05 Glucose (Fingerstick) 204 mg/dL (70-99) INGRID LOMBARDI MD Jun 13, 2017 16:25
[2017-06-13] MEDS ORDERED: SODIUM PHOSPHATE 20 MMOL in IV DEXTROSE 5% 250 ML IV ONE (17:00)
[2017-06-13] MEDS: CARVEDILOL 3.125 MG TABLET. PO SCH (18:32)
[2017-06-13 19:25] VITALS: BP 141/64
[2017-06-13] MEDS ORDERED: GABAPENTIN 300 MG CAPSULE. PO PRN (21:00)
[2017-06-13] MEDS ORDERED: ATORVASTATIN CALCIUM 40 MG TABLET. PO SCH (21:00)
[2017-06-13] MEDS: CYCLOBENZAPRINE 10 MG TABLET. PO SCH (21:11)
[2017-06-13] MEDS: ATORVASTATIN CALCIUM 20 MG TABLET PO SCH (21:11)
[2017-06-13] MEDS: SACUBITRIL/VALSARTAN 49/51MG TABLET. PO SCH (21:12)
[2017-06-13] MEDS: INSULIN DETEMIR 300 UNITS/3 ML INSULN.PEN. SQ SCH (21:19)
[2017-06-13 23:10] VITALS: BP 141/67
[2017-06-14 03:25] VITALS: BP 151/72
[2017-06-14] MEDS: HYDROcodone/APAP 5/325MG 1 TAB TABLET PO PRN (05:06)
[2017-06-14] MEDS: IV NORMAL SALINE 1000ML BAG 1,000 ML IV SCH (05:55)
[2017-06-14 07:00] VITALS: BP 173/80
--- NOTE | 2017-06-14 07:20 | RAD ---
Chest, 2 views, 06/13/2017: History: Congestive heart failure Comparison is made to a study from 06/07/2017. The left-sided transvenous pacemaker is unchanged in position. A right jugular dialysis type catheter has been inserted extending into the inferior aspect of the superior vena cava. The heart is moderately enlarged. There is mild basilar atelectasis/infiltrate as seen on the lateral view, probably lying on the left. No significant pleural fluid is seen. There is no evidence of pneumothorax. IMPRESSION: 1. Unchanged cardiomegaly. 2. Mild left basilar atelectasis/infiltrate.
[2017-06-14] MEDS: INSULIN ASPART 300 UNITS/3 ML INSULN.PEN SQ SCH ×6 (07:30→17:00)
[2017-06-14] MEDS ORDERED: DOCUSATE SODIUM 100 MG CAPSULE. PO SCH (09:00)
[2017-06-14 09:17] LABS: GAMMA UR 53.8 % (.); M-SPIKE, % Not Observed % (Not Observed); PROTEIN 24 UR 112 mg/24 hr (30-150); PROTEIN UR 26.4 mg/dL (Not Estab.)
[2017-06-14] MEDS: ASPIRIN CHEWABLE 81 MG TABLET. PO SCH (09:29)
[2017-06-14] MEDS: FERROUS SULFATE 325 MG TABLET. PO SCH (09:29)
[2017-06-14] MEDS: CLOPIDOGREL BISULFATE 75 MG TABLET PO SCH (09:29)
[2017-06-14] MEDS: METOPROLOL TART IMMED RELEASE 25 MG TABLET. PO SCH ×2 (09:29→20:38)
[2017-06-14] MEDS: DOCUSATE SODIUM 100 MG CAPSULE. PO SCH (09:29)
[2017-06-14] MEDS: CAPSAICIN 0.025% TOPICAL CREAM 60GM TUBE. TP SCH ×3 (09:30→20:45)
[2017-06-14] MEDS: guaiFENesin DM 200MG/20MG 10 ML SYRUP PO SCH ×4 (09:30→20:38)
[2017-06-14] MEDS: BENZONATATE 100 MG CAPSULE. PO SCH ×3 (09:30→20:37)
[2017-06-14] MEDS: LACTOBACILLUS RHAMNOSUS GG 1 CAPSULE. PO SCH ×2 (09:30→20:37)
[2017-06-14] MEDS: FUROSEMIDE 40 MG TABLET. PO SCH (09:39)
[2017-06-14] MEDS: CYANOCOBALAMIN (VITAMIN B-12) 1,000 MCG TABLET. PO SCH (09:39)
[2017-06-14] MEDS: SACUBITRIL/VALSARTAN 49/51MG TABLET. PO SCH ×2 (09:40→20:37)
[2017-06-14] MEDS: cefTRIAXone IV Push 2 GM VIAL. IVP SCH (09:41)
[2017-06-14] MEDS: CARVEDILOL 3.125 MG TABLET. PO SCH ×2 (09:44→17:37)
--- NOTE | 2017-06-14 10:51 | PDOC ---
Infectious Disease Note Subjective Subjective Pt says feels less weak, tired, still some cough at times Actually feels better Less abd discomfort. Ate some No fever Last BM !08/12 ROS ROS GEN: Denies fevers, chills, sweats HEENT: Denies blurred vision, sore throat CV: Denies chest pain RESP: Denies shortness of air, cough GI: Denies n/v/d NEURO: Denies confusion, dizziness MSK: Denies weakness, joint pain/swelling Vital Sign Vital Signs Vital Signs Date Time Temp Pulse Resp B/P (MAP) Pulse Ox O2 Delivery O2 Flow Rate FiO2 06/14/17 09:44 79 173/80 06/14/17 07:00 98.1 16 100 Nasal Cannula 2.0 98.1 Physical Exam PHYSICAL EXAM GENERAL: NAD,sitting in chair NECK - supple LUNGS: Clear anteriorly HEART: S1S2, pacemaker ABD: Soft, NT. 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 (06/09). clean Labs Lab Laboratory Tests Test 06/13/17 12:05 06/13/17 16:39 06/13/17 20:45 06/14/17 07:30 Glucose (Fingerstick) 204 mg/dL (70-99) 158 mg/dL (70-99) 160 mg/dL (70-99) 55 mg/dL (70-99) Test 06/14/17 07:55 06/14/17 08:15 06/14/17 09:28 Glucose (Fingerstick) 54 mg/dL (70-99) 63 mg/dL (70-99) 106 mg/dL (70-99) Micro Streptococcus pneumoniae Recovered from aerobic and anaerobic bottles. Use of cefotaxime or ceftriaxone in meningitis requires therapy with maximum doses. (CLSI) For cefotaxime, use of interpretive criteria for nonmeningitis requires doses appropriate for serious pneumococcal infections (e.g., at least 1 g (adults) or 50 mg/kg (children) every eight hours or more frequently). (CLSI) Use of penicillin in meningitis requires therapy with maximum doses of IV penicillin (e.g. at least 3 million units every 4 hours in adults with normal renal function). 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 06/06 neg. (Vanc/Cefepime on 06/05) NSTEMI,CM s/p cath 06/09 ASHLEY /ATN on HD Nausea and vomiting resolved. mild abd discomfort - better Anemia, Paraproteinemia Rt Shoulder pain - some better ? Gastroparesis Plan Plan of Care Continue ceftriaxone 2gm IV QD while improving Change to po when tolerating better cont supportive care CHELI GROSSMAN MD Jun 14, 2017 10:51
[2017-06-14 11:00] VITALS: BP 127/58
--- NOTE | 2017-06-14 12:21 | PDOC ---
PROGRESS NOTES Subjective Subjective HPI - Thrombocytopenia ROS - no CP Objective Objective Vital Signs Date Time Temp Pulse Resp B/P (MAP) Pulse Ox O2 Delivery O2 Flow Rate FiO2 06/14/17 11:00 97.8 72 16 127/58 (81) 96 Nasal Cannula 2.0 97.8 Intake and Output 06/14/17 07:00 Intake Total 1274 ml Output Total 300 ml Balance 974 ml Intake Oral 700 ml IV Total 574 ml Output Urine Total 300 ml Physical Exam General: Alert, Oriented X3, No acute distress Psych/Mental Status: Mental status NL Assessment Assessment Problems Medical Problems: (1) Congestive heart disease Status: Acute (2) Elevated troponin Status: Acute (3) Pneumonia Status: Acute (4) Sepsis Status: Acute IMPRESSION AND PLAN: 1. Thrombocytopenia. This is a reactive thrombocytopenia due to underlying sepsis. No clinical evidence of thrombotic thrombocytopenic purpura or disseminated intravascular coagulation. Reticulocyte count is normal. Platelets better at 122. Continue to monitor. 2. Anemia, normochromic, normocytic. Iron studies are suggestive of anemia due to chronic disease. B12 and folic acid reveal no deficiency.Hb 7.8 3. Renal failure. Cr 1.7 4. Sepsis. Improving Comment Review of Relevant I have reviewed the following items bro (where applicable) has been applied. Labs Laboratory Tests Test 06/12/17 16:42 06/12/17 20:35 06/13/17 07:25 06/13/17 07:26 Glucose (Fingerstick) 90 mg/dL (70-99) 135 mg/dL (70-99) 128 mg/dL (70-99) Sodium Level 141 mmol/L (136-145) Potassium Level 3.7 mmol/L (3.5-5.1) Chloride Level 105 mmol/L (98-107) Carbon Dioxide Level 31 mmol/L (21-32) Anion Gap 5 (6-14) Blood Urea Nitrogen 21 mg/dL (7-20) Creatinine 1.7 mg/dL (0.6-1.0) Estimated GFR (Cockcroft-Gault) 37.1 Glucose Level 188 mg/dL (70-99) Calcium Level 8.7 mg/dL (8.5-10.1) Phosphorus Level 2.4 mg/dL (2.6-4.7) Albumin 1.8 g/dL (3.4-5.0) Test 06/13/17 12:05 06/13/17 16:39 06/13/17 20:45 06/14/17 07:30 Glucose (Fingerstick) 204 mg/dL (70-99) 158 mg/dL (70-99) 160 mg/dL (70-99) 55 mg/dL (70-99) Test 06/14/17 07:55 06/14/17 08:15 06/14/17 09:28 06/14/17 12:03 Glucose (Fingerstick) 54 mg/dL (70-99) 63 mg/dL (70-99) 106 mg/dL (70-99) 133 mg/dL (70-99) Laboratory Tests Test 06/13/17 16:39 06/13/17 20:45 06/14/17 07:30 06/14/17 07:55 Glucose (Fingerstick) 158 mg/dL (70-99) 160 mg/dL (70-99) 55 mg/dL (70-99) 54 mg/dL (70-99) Test 06/14/17 08:15 06/14/17 09:28 06/14/17 12:03 Glucose (Fingerstick) 63 mg/dL (70-99) 106 mg/dL (70-99) 133 mg/dL (70-99) Microbiology 06/06/17 Blood Culture - Final, Complete NO GROWTH AFTER 5 DAYS 06/07/17 - Final, Complete 06/07/17 - Final, Complete 06/07/17 - Final, Complete 06/07/17 Gram Stain Evaluation - Final, Complete 06/07/17 Sputum Culture - Final, Complete 06/07/17 Sputum Result 1 - Final, Complete 06/07/17 Sputum Result 2 - Final, Complete 06/06/17 Urine Culture - Final, Complete 06/06/17 Urine Culture Result 1 (TANJA) - Final, Complete Medications Current Medications Ondansetron HCl (Zofran) 8 mg 1X ONCE IV Last administered on 06/05/17 18:36 ; Start 06/05/17 at 18:30; Stop 06/05/17 at 18:31; Status DC Aspirin (Children'S Aspirin) 324 mg 1X ONCE PO Last administered on 19:48; Start 06/05/17 at 19:45; Stop 06/05/17 at 19:46; Status DC Sodium Chloride 1,000 ml @ 1,000 mls/hr 1X ONCE IV Last administered on 06/05 20:12; Start 06/05/17 at 20:00; Stop 06/05/17 at 20:59; Status DC Cefepime HCl 2 gm/ Dextrose 100 ml @ 200 mls/hr 1X ONCE IV ; Start 06/05/17 at 20:00; Stop 06/05/17 at 20:04; Status DC Cefepime HCl (Maxipime) 2 gm Q12HR IVP Last administered on 06/08/17 09:02; Start 06/05/17 at 21:00; Stop 06/08/17 at 09:21; Status DC Ondansetron HCl (Zofran) 4 mg PRN Q8HRS PRN IV NAUSEA/VOMITING; Start at 20:15; Stop 06/06/17 at 08:52; Status DC Sodium Chloride 1,000 ml @ 75 mls/hr [id number] IV Last administered on 10:30; Start 06/05/17 at 20:06; Stop 06/06/17 at 20:05; Status DC Albuterol/ Ipratropium (Duoneb) 3 ml RTQID NEB ; Start 06/06/17 at 08:00; Stop 06/07/17 at 07:59; Status DC Acetaminophen (Tylenol) 650 mg PRN Q6HRS PRN PO fever Last administered on 16:33; Start 06/05/17 at 20:15; Stop 06/09/17 at 16:31; Status DC Vancomycin HCl (Vanco Per Pharmacy) 1 each PRN DAILY PRN MC SEE COMMENTS Last administered on 06/06/17 15:14; Start 06/05/17 at 20:15; Stop 06/07/17 at 09 :14; Status DC Acetaminophen (Tylenol) 1,000 mg 1X ONCE PO Last administered on 06/05/17 20 :17; Start 06/05/17 at 20:15; Stop 06/05/17 at 20:21; Status DC Vancomycin HCl 2 gm/Dextrose/ Sodium Chloride 500 ml @ 250 mls/hr 1X ONCE IV Last administered on 06/05/17 21:45; Start 06/05/17 at 21:00; Stop 06/05/17 at 22:59; Status DC Vancomycin HCl 1.25 gm/Sodium Chloride 250 ml @ 167 mls/hr Q24H IV ; Start at 22:00; Stop 06/06/17 at 22:00; Status DC Vancomycin HCl 1 each 1X ONCE MC ; Start 06/07/17 at 20:00; Stop 06/07/17 at 20:00; Status DC Norepinephrine Bitartrate 250 ml @ 0 mls/hr CONT PRN IV SEE I/O RECORD Last administered on 06/05/17 23:13; Start 06/05/17 at 22:45; Stop 06/10/17 at 13 :22; Status DC Magnesium Sulfate/ Dextrose 50 ml @ 25 mls/hr PRN DAILY PRN IV for Mag < 1.7 on am labs Last administered on 06/06/17 12:40; Start 06/06/17 at 08:30 Ondansetron HCl (Zofran) 4 mg PRN Q6HRS PRN IV NAUSEA/VOMITING; Start at 09:00; Stop 06/07/17 at 08:59; Status DC Guaifenesin (Robitussin Dm) 10 ml QID PO Last administered on 06/14/17 09:30 ; Start 06/06/17 at 09:00 Heparin Sodium (Porcine) (Heparin Sodium) 4,000 unit 1X ONCE IV Last administered on 06/06/17 10:19; Start 06/06/17 at 09:15; Stop 06/06/17 at 09 :21; Status DC Heparin Sodium/ Dextrose 500 ml @ 0 mls/hr CONT PRN IV SEE I/O RECORD Last administered on 06/08/17 16:49; Start 06/06/17 at 09:15; Stop 06/10/17 at 13 :25; Status DC Heparin Sodium (Porcine) (Heparin Sodium) 2,000 unit PRN Q6HRS PRN IV FOR UFH LEVEL LESS THAN 0.2; Start 06/06/17 at 09:15; Stop 06/10/17 at 13:25; Status DC Furosemide (Lasix) 40 mg 1X ONCE IVP Last administered on 06/06/17 10:09; Start 06/06/17 at 10:00; Stop 06/06/17 at 10:01; Status DC Aspirin (Ecotrin) 81 mg DAILYWBKFT PO Last administered on 06/09/17 08:46; Start 06/07/17 at 08:00; Stop 06/10/17 at 09:36; Status DC Lactobacillus Rhamnosus (Culturelle) 1 cap BID PO Last administered on 09:30; Start 06/06/17 at 21:00 Acetaminophen/ Hydrocodone Bitart (Lortab 5/325) 1 tab PRN Q6HRS PRN PO PAIN Last administered on 06/14/17 05:06; Start 06/06/17 at 20:30 Capsaicin (Zostrix) 1 nelson TID TP Last administered on 06/14/17 09:30; Start 06/06/17 at 21:00 Benzonatate (Tessalon Perle) 100 mg TID PO Last administered on 06/14/17 09: 30; Start 06/07/17 at 04:00 Magnesium Sulfate/ Dextrose 50 ml @ 25 mls/hr 1X ONCE IV Last administered on 06/07/17 08:55; Start 06/07/17 at 09:00; Stop 06/07/17 at 10:59; Status DC Docusate Sodium (Colace) 100 mg DAILY PO Last administered on 06/14/17 09:29 ; Start 06/07/17 at 10:30 Metoprolol Tartrate (Lopressor) 12.5 mg BID PO Last administered on 06/14/17 09:29; Start 06/07/17 at 13:30 Info (Anti-Coagulation Monitoring By Pharmacy) 1 each PRN DAILY PRN MC SEE COMMENTS Last administered on 06/08/17 14:20; Start 06/08/17 at 08:00; Stop 06/10/17 at 13:25; Status DC Ondansetron HCl (Zofran) 4 mg PRN Q6HRS PRN IV NAUSEA/VOMITING 1ST CHOICE Last administered on 06/12/17 14:09; Start 06/08/17 at 09:00 Ceftriaxone Sodium 2 gm/ Dextrose 100 ml @ 200 mls/hr Q12HR IV ; Start at 21:00; Status UNV Levofloxacin (Levaquin) 250 mg 1X ONCE PO ; Start 06/08/17 at 09:30; Stop at 09:30; Status DC Ceftriaxone Sodium (Rocephin) 2 gm Q12HR IVP Last administered on 06/12/17 08 :50; Start 06/08/17 at 10:00; Stop 06/12/17 at 10:05; Status DC Insulin Detemir (Levemir) 10 units QHS SQ Last administered on 06/11/17 20:36 ; Start 06/08/17 at 21:00; Stop 06/12/17 at 12:21; Status DC Insulin Aspart (NovoLOG) 0-9 UNITS TIDWMEALS SQ Last administered on 12:53; Start 06/08/17 at 12:00 Dextrose (Dextrose 50%-Water Syringe) 12.5 gm PRN Q15MIN PRN IV SEE COMMENTS Last administered on 06/12/17 11:27; Start 06/08/17 at 09:45 Ferrous Sulfate (Feosol) 325 mg DAILYWBKFT PO Last administered on 06/14/17 09:29; Start 06/08/17 at 11:30 Prednisone (Prednisone) 50 mg TID@0700,1500,2300 PO Last administered on 06:27; Start 06/08/17 at 15:00; Stop 06/09/17 at 07:01; Status DC Diphenhydramine HCl (Benadryl) 50 mg 1X ONCE PO Last administered on 14:35; Start 06/09/17 at 07:00; Stop 06/09/17 at 07:01; Status DC Famotidine (Pepcid) 20 mg 1X ONCE PO Last administered on 06/09/17 14:35; Start 06/09/17 at 07:00; Stop 06/09/17 at 07:01; Status DC Sodium Chloride 1,000 ml @ 60 mls/hr [id number] IV Last administered on 04:10; Start 06/08/17 at 20:00; Stop 06/12/17 at 11:52; Status DC Methylprednisolone Sodium Succinate (SOLU-Medrol 125MG VIAL) 125 mg 1X ONCE IV ; Start 06/09/17 at 08:00; Stop 06/09/17 at 08:01; Status Cancel Diphenhydramine HCl (Benadryl) 50 mg 1X ONCE IVP ; Start 06/09/17 at 08:00; Stop 06/09/17 at 08:01; Status DC Acetylcysteine (Mucomyst 20% Oral Solution) 600 mg BID PO Last administered on 06/10/17 20:21; Start 06/09/17 at 08:00; Stop 06/11/17 at 07:59; Status DC Acetaminophen (Tylenol) 650 mg 1X ONCE PO Last administered on 06/09/17 14: 35; Start 06/09/17 at 08:00; Stop 06/09/17 at 08:01; Status DC Lidocaine/Sodium Bicarbonate (Buffered Lidocaine 1%) 3 ml STK-MED ONCE IJ ; Start 06/09/17 at 08:16; Stop 06/09/17 at 08:17; Status DC Heparin Sodium (Porcine) (Heparin Sodium) 10,000 unit STK-MED ONCE .ROUTE ; Start 06/09/17 at 08:16; Stop 06/09/17 at 08:17; Status DC Lidocaine/Sodium Bicarbonate (Buffered Lidocaine 1%) 6 ml 1X ONCE IJ Last administered on 06/09/17 09:25; Start 06/09/17 at 09:30; Stop 06/09/17 at 09 :31; Status DC Heparin Sodium (Porcine) (Heparin Sodium) 2,500 unit 1X ONCE INT CAT Last administered on 06/09/17 09:25; Start 06/09/17 at 09:30; Stop 06/09/17 at 09 :31; Status DC Methylprednisolone Sodium Succinate (SOLU-Medrol 125MG VIAL) 125 mg 1X ONCE IV Last administered on 06/09/17 14:36; Start 06/09/17 at 14:30; Stop at 14:31; Status DC Heparin Sodium/ Sodium Chloride 500 ml @ As Directed STK-MED ONCE .ROUTE ; Start 06/09/17 at 14:36; Stop 06/09/17 at 14:37; Status DC Iodixanol (Visipaque 320) 100 ml STK-MED ONCE .ROUTE ; Start 06/09/17 at 14:36 ; Stop 06/09/17 at 14:37; Status DC Lidocaine HCl 20 ml STK-MED ONCE .ROUTE ; Start 06/09/17 at 14:37; Stop at 14:38; Status DC Darbepoetin Joey (Aranesp) 60 mcg Fr SQ Last administered on 06/09/17 20:54; Start 06/09/17 at 21:00 Fentanyl Citrate (Fentanyl 2ml Vial) 100 mcg STK-MED ONCE .ROUTE ; Start at 15:02; Stop 06/09/17 at 15:03; Status DC Midazolam HCl (Versed) 2 mg STK-MED ONCE .ROUTE ; Start 06/09/17 at 15:02; Stop 06/09/17 at 15:03; Status DC Bivalirudin (Angiomax) 250 mg STK-MED ONCE IV ; Start 06/09/17 at 15:19; Stop 06/09/17 at 15:20; Status DC Iodixanol (Visipaque 320) 100 ml STK-MED ONCE .ROUTE ; Start 06/09/17 at 15:24 ; Stop 06/09/17 at 15:25; Status DC Clopidogrel Bisulfate (Plavix) 75 mg STK-MED ONCE .ROUTE ; Start 06/09/17 at 15 :37; Stop 06/09/17 at 15:38; Status DC Heparin Sodium/ Sodium Chloride 1,000 unit 1X ONCE IART Last administered on 06/09/17 15:55; Start 06/09/17 at 15:45; Stop 06/09/17 at 15:48; Status DC Midazolam HCl (Versed) 0.5 mg 1X ONCE IV Last administered on 06/09/17 15:54 ; Start 06/09/17 at 15:45; Stop 06/09/17 at 15:48; Status DC Fentanyl Citrate (Fentanyl 2ml Vial) 12.5 mcg 1X ONCE IV Last administered on 06/09/17 16:00; Start 06/09/17 at 15:45; Stop 06/09/17 at 15:48; Status DC Iodixanol (Visipaque 320) 154 ml 1X ONCE IART Last administered on 06/09/17 15:55; Start 06/09/17 at 15:45; Stop 06/09/17 at 15:48; Status DC Bivalirudin (Angiomax) 250 mg 1X ONCE IV Last administered on 06/09/17 15:59 ; Start 06/09/17 at 15:45; Stop 06/09/17 at 15:48; Status DC Clopidogrel Bisulfate (Plavix) 600 mg 1X ONCE PO Last administered on 16:00; Start 06/09/17 at 15:45; Stop 06/09/17 at 15:48; Status DC Lidocaine HCl 20 ml 1X ONCE IJ Last administered on 06/09/17 15:55; Start 06/09/17 at 15:45; Stop 06/09/17 at 15:48; Status DC Info (Do NOT chart on this entry -- for MONITORING) 1 each PRN DAILY PRN MC SEE COMMENTS; Start 06/09/17 at 16:00; Stop 06/11/17 at 15:59; Status DC Clopidogrel Bisulfate (Plavix) 75 mg STK-MED ONCE .ROUTE ; Start 06/09/17 at 15 :51; Stop 06/09/17 at 15:52; Status DC Aspirin (Children'S Aspirin) 244 mg 1X ONCE PO Last administered on 16:03; Start 06/09/17 at 16:15; Stop 06/09/17 at 16:16; Status DC Aspirin (Ecotrin) 325 mg DAILYWBKFT PO Last administered on 06/13/17 09:15; Start 06/10/17 at 08:00; Stop 06/13/17 at 15:29; Status DC Clopidogrel Bisulfate (Plavix) 75 mg DAILYWBKFT PO Last administered on 09:29; Start 06/10/17 at 08:00 Atorvastatin Calcium (Lipitor) 40 mg QHS PO Last administered on 06/13/17 21: 11; Start 06/09/17 at 21:00 Acetaminophen (Tylenol) 650 mg PRN Q6HRS PRN PO MILD PAIN / TEMP; Start at 16:30 Fentanyl Citrate (Fentanyl 2ml Vial) 50 mcg PRN Q1HR PRN IV MODERATE OR SEVERE PAIN Last administered on 06/12/17 14:08; Start 06/09/17 at 16:30 Nitroglycerin (Nitrostat) 0.4 mg PRN Q5MIN PRN SL CHEST PAIN; Start 06/09/17 at 16:30 Sodium Chloride 1,000 ml @ 1,000 mls/hr Q1H PRN IV hypotension; Start at 08:25; Stop 06/10/17 at 14:24; Status DC Diphenhydramine HCl (Benadryl) 25 mg 1X PRN PRN IV ITCHING; Start 06/10/17 at 08:30; Stop 06/11/17 at 08:29; Status DC Diphenhydramine HCl (Benadryl) 25 mg 1X PRN PRN IV ITCHING; Start 06/10/17 at 08:30; Stop 06/11/17 at 08:29; Status DC Sodium Chloride (Normal Saline Flush) 10 ml 1X PRN PRN IV AP catheter pack; Start 06/10/17 at 08:30; Stop 06/11/17 at 08:29; Status DC Sodium Chloride (Normal Saline Flush) 10 ml 1X PRN PRN IV ROD AND TUBE STRAIGHTENER catheter pack; Start 06/10/17 at 08:30; Stop 06/11/17 at 08:29; Status DC Sodium Chloride 1,000 ml @ 400 mls/hr Q2H30M PRN IV PATENCY; Start 06/10/17 at 08:25; Stop 06/10/17 at 20:24; Status DC Info (PHARMACY MONITORING -- do not chart) 1 each PRN DAILY PRN MC SEE COMMENTS ; Start 06/10/17 at 08:30; Stop 06/11/17 at 15:07; Status DC Sodium Chloride 1,000 ml @ 1,000 mls/hr Q1H PRN IV hypotension; Start at 08:47; Stop 06/11/17 at 14:46; Status DC Diphenhydramine HCl (Benadryl) 25 mg 1X PRN PRN IV ITCHING; Start 06/11/17 at 09:00; Stop 06/12/17 at 08:59; Status DC Diphenhydramine HCl (Benadryl) 25 mg 1X PRN PRN IV ITCHING; Start 06/11/17 at 09:00; Stop 06/12/17 at 08:59; Status DC Sodium Chloride (Normal Saline Flush) 10 ml 1X PRN PRN IV AP catheter pack; Start 06/11/17 at 09:00; Stop 06/12/17 at 08:59; Status DC Sodium Chloride (Normal Saline Flush) 10 ml 1X PRN PRN IV ROD AND TUBE STRAIGHTENER catheter pack; Start 06/11/17 at 09:00; Stop 06/12/17 at 08:59; Status DC Sodium Chloride 1,000 ml @ 400 mls/hr Q2H30M PRN IV PATENCY; Start 06/11/17 at 08:47; Stop 06/11/17 at 20:46; Status DC Info (PHARMACY MONITORING -- do not chart) 1 each PRN DAILY PRN MC SEE COMMENTS ; Start 06/11/17 at 09:00 Ceftriaxone Sodium (Rocephin) 2 gm DAILY IVP Last administered on 06/14/17 09 :41; Start 06/13/17 at 09:00 Dextrose/Lactated Ringer's 1,000 ml @ 60 mls/hr [id number] IV Last administered on 06/13/17 06:18; Start 06/12/17 at 12:00; Stop 06/13/17 at 16:18; Status DC Potassium Chloride 100 ml @ 100 mls/hr Q1H IV Last administered on 06/12/17 12:15; Start 06/12/17 at 12:00; Stop 06/12/17 at 12:59; Status DC Sodium Chloride 1,000 ml @ 60 mls/hr [id number] IV Last administered on 13:09; Start 06/13/17 at 13:15 Aspirin (Children'S Aspirin) 81 mg DAILY PO Last administered on 06/14/17 09: 29; Start 06/14/17 at 09:00 Atorvastatin Calcium (Lipitor) 40 mg HS PO ; Start 06/13/17 at 21:00; Status Cancel Carvedilol (Coreg) 9.375 mg BIDWMEALS PO Last administered on 06/14/17 09:44 ; Start 06/13/17 at 17:00 Cyanocobalamin (Vitamin B-12) 500 mcg DAILY PO Last administered on 06/14/17 09:39; Start 06/14/17 at 09:00 Cyclobenzaprine HCl (Flexeril) 10 mg QHS PO Last administered on 06/13/17 21: 11; Start 06/13/17 at 21:00 Docusate Sodium (Colace) 100 mg DAILY PO ; Start 06/14/17 at 09:00 Furosemide (Lasix) 40 mg DAILY PO Last administered on 06/14/17 09:39; Start 06/14/17 at 09:00 Polyethylene Glycol (miraLAX PACKET) 17 gm PRN DAILY PRN PO CONSTIPATION; Start 06/13/17 at 15:00 Sacubitril/ Valsartan (Entresto 49 Mg-51 Mg) 1 tab BID PO Last administered on 06/14/17 09:40; Start 06/13/17 at 21:00 Gabapentin (Neurontin) 600 mg PRN TID PRN PO Pain; Start 06/13/17 at 21:00 Insulin Aspart (NovoLOG) 3 units TIDAC SQ ; Start 06/13/17 at 16:30 Insulin Detemir (Levemir) 25 units QHS SQ Last administered on 06/13/17 21:19 ; Start 06/13/17 at 21:00 Sodium Phosphate 20 mmol/Dextrose 256.6667 ml @ 64.167 m... 1X ONCE IV Last administered on 06/13/17 18:31; Start 06/13/17 at 17:00; Stop 06/13/17 at 20 :59; Status DC Active Scripts Active Cyclobenzaprine Hcl 10 Mg Tablet 1 Tab PO QHS Reported Coreg (Carvedilol) 6.25 Mg Tablet 1.5 Tab PO BID Entresto 49 mg-51 mg Tablet (Sacubitril/Valsartan) 1 Each Tablet 1 Each PO BID Atorvastatin Calcium 40 Mg Tablet 40 Mg PO HS Miralax (Polyethylene Glycol 3350) 17 Gm Powd.pack 1 Packet PO PRN DAILY PRN Colace (Docusate Sodium) 100 Mg Capsule 1 Cap PO DAILY Furosemide 20 Mg Tablet 40 Mg PO DAILY Gabapentin 300 Mg Capsule 600 Mg PO PRN TID PRN Vitamin B-12 (Cyanocobalamin (Vitamin B-12)) 1,000 Mcg Tablet 500 Mcg PO DAILY Lantus Solostar (Insulin Glargine,Hum.rec.anlog) 100 Unit/1 Ml Insuln.pen 25 Unit SQ QHS Novolog (Insulin Aspart) 100 Unit/1 Ml Cartridge 3 Unit SQ TIDAC Aspirin 81 Mg Tab.chew 81 Mg PO DAILY Metformin Hcl 500 Mg Tablet 1,000 Mg PO BID Vitals/I & O Vital Sign - Last 24 Hours 06/13/17 06/13/17 06/13/17 06/13/17 15:04 18:32 19:25 20:00 Temp 98.6 98.4 98.6 98.4 Pulse 98 98 88 Resp 18 18 B/P (MAP) 149/73 (98) 149/73 141/64 (89) Pulse Ox 93 97 O2 Delivery Nasal Cannula Nasal Cannula Nasal Cannula O2 Flow Rate 2.0 2.0 2.0 06/13/17 06/13/17 06/13/17 06/14/17 21:12 21:12 23:10 03:25 Temp 98.2 97.7 98.2 97.7 Pulse 88 89 69 71 Resp 18 18 B/P (MAP) 116/57 116/57 141/67 (91) 151/72 (98) Pulse Ox 97 99 O2 Delivery Nasal Cannula Nasal Cannula O2 Flow Rate 2.0 2.0 06/14/17 06/14/17 06/14/17 06/14/17 05:06 06:06 07:00 08:00 Temp 98.1 98.1 Pulse 79 Resp 20 16 B/P (MAP) 173/80 (111) Pulse Ox 100 O2 Delivery Nasal Cannula Nasal Cannula Nasal Cannula O2 Flow Rate 3.0 2.0 2.0 06/14/17 06/14/17 06/14/17 06/14/17 09:29 09:40 09:44 11:00 Temp 97.8 97.8 Pulse 79 79 79 72 Resp 16 B/P (MAP) 173/80 173/80 173/80 127/58 (81) Pulse Ox 96 O2 Delivery Nasal Cannula O2 Flow Rate 2.0 Intake and Output 06/13/17 06/13/17 06/14/17 15:00 23:00 07:00 Intake Total 360 ml 714 ml 200 ml Output Total 200 ml 100 ml Balance 160 ml 614 ml 200 ml Nutrition Consultation Dietary Evaluation: Recommendations by RD: Increase Calorie Intake Comments: REC Cardiac/ADA diet Expected Outcomes/Goals: Diet advancement within 24 - 48 hrs - met, new goal established New goal: PO intake to meet > 75% est needs Interpretation of weight loss: >5% in 1 month Malnutrition Findings: Food and Nutrition Intake (Mod: <75% est energy req 7days Weight Status: Overweight SEGUNDO CABRAL MD Jun 14, 2017 12:21
[2017-06-14 12:32] LABS: BASO % 1 % (0-3); EOS % 0 % (0-3); HEMATOCRIT 25.6 % (36.0-47.0); HEMOGLOBIN 8.2 g/dL (12.0-15.5); LYMPH # 2.5 x10^3/uL (1.0-4.8); LYMPH % 32 % (24-48); MEAN CORPUSCULAR HEMOGLOBIN 27 pg (25-35); MEAN CORPUSCULAR HGB CONC 32 g/dL (31-37); MEAN CORPUSCULAR VOLUME 83 fL (79-100); MONO % 10 % (0-9); NEUT % 57 % (31-73); PLATELET COUNT 103 x10^3/uL (140-400); RED BLOOD COUNT 3.09 x10^6/uL (3.50-5.40); RED CELL DISTRIBUTION WIDTH 18.4 % (11.5-14.5)
[2017-06-14 12:52] LABS: CALCIUM 8.4 mg/dL (8.5-10.1); CREATININE 1.8 mg/dL (0.6-1.0); GFR 34.7; POTASSIUM 3.6 mmol/L (3.5-5.1)
--- NOTE | 2017-06-14 13:02 | PDOC ---
SUBJECTIVE ROS ASHLEY/ CKD IV with Pn/ NSTEMI and CHF Doign OK overall x still anorexic and somewhat nauseated , denies SOB - UO picked up CVS: no Orthopnea, no CP RESP: no SOB, no PHILLIPS GI: + Nausea, no Vomiting : no Dysuria, no Urgency OBJECTIVE Vital Signs Vital Signs Date Time Temp Pulse Resp B/P (MAP) Pulse Ox O2 Delivery O2 Flow Rate FiO2 06/14/17 11:00 97.8 72 16 127/58 (81) 96 Nasal Cannula 2.0 97.8 I & 0 Intake and Output 06/14/17 07:00 Intake Total 1274 ml Output Total 300 ml Balance 974 ml Intake Oral 700 ml IV Total 574 ml Output Urine Total 300 ml PHYSICAL EXAM Physical Exam General Appearance: Awake Alert Oriented x 3 In no Distress; mild facial pallor/ swelling Eyes: VIsion: Dec on Left - Almost blind on Rt; Conjunctiva Normal EN: No EN Drainage Mucous Memb. moist Neck: no JVD no JVP Supple no Thyromegaly CVS: S1 S2 + Murmur No Gallop No Rub no Edema x left upper ext Resp: no Rales no Rhonchi no Acc. Muscle use GI: BS +ve NO Bruit Non Tender Non Distended : no CVA tenderness; no Suprapubic Tenderness Assessment & Plan: ASHLEY - . Current FLuid and E-lyte status does not necessitate emergent need for Dialysis. Will re-evaluate for Dialysis in am Oliguria - suspect Pre-Renal - now better Anorexia - improved CKD III - DM/ HTNsive / NS cannot be ruled out Anemia: ( fe def state noteD ) PO Iron, EPO as ordered in setting of NSTEMI + CKDIII Sys CHF with worsening of previously non-ischemic ? Cardiomyopathy -LHC / PCI done; clinically OK currently; Wt gain noted. watch off of IVF and ct Lasix as ordered SEv ^ed PTH - check Vit D OK to D/c from Renal standpoint COMMENT/RELEVANT DATA Meds Current Medications Medications (Trade) Dose Ordered Sig/Wilfrid Start Time Stop Time Status Last Admin Dose Admin Acetaminophen (Tylenol) 650 mg PRN Q6HRS PRN 06/09/17 16:30 Acetaminophen/ Hydrocodone Bitart (Lortab 5/325) 1 tab PRN Q6HRS PRN 06/06/17 20:30 06/14/17 05:06 1 TAB Acetylcysteine (Mucomyst 20% Oral Solution) 600 mg BID 06/09/17 08:00 06/11/17 07:59 DC 06/10/17 20:21 600 MG Albuterol/ Ipratropium (Duoneb) 3 ml RTQID 06/06/17 08:00 06/07/17 07:59 DC Aspirin (Children'S Aspirin) 81 mg DAILY 06/14/17 09:00 06/14/17 09:29 81 MG Aspirin (Ecotrin) 325 mg DAILYWBKFT 06/10/17 08:00 06/13/17 15:29 DC 06/13/17 09:15 325 MG Atorvastatin Calcium (Lipitor) 40 mg HS 06/13/17 21:00 Cancel Benzonatate (Tessalon Perle) 100 mg TID 06/07/17 04:00 06/14/17 09:30 100 MG Bivalirudin (Angiomax) 250 mg 1X ONCE 06/09/17 15:45 06/09/17 15:48 DC 06/09/17 15:59 250 MG Capsaicin (Zostrix) 1 nelson TID 06/06/17 21:00 06/14/17 09:30 1 NELSON Carvedilol (Coreg) 9.375 mg BIDWMEALS 06/13/17 17:00 06/14/17 09:44 9.375 MG Cefepime HCl (Maxipime) 2 gm Q12HR 06/05/17 21:00 06/08/17 09:21 DC 06/08/17 09:02 2 GM Cefepime HCl 2 gm/ Dextrose 100 ml @ 200 mls/hr 1X ONCE 06/05/17 20:00 06/05/17 20:04 DC Ceftriaxone Sodium 2 gm/ Dextrose 100 ml @ 200 mls/hr Q12HR 06/08/17 21:00 UNV Ceftriaxone Sodium (Rocephin) 2 gm DAILY 06/13/17 09:00 06/14/17 09:41 2 GM Clopidogrel Bisulfate (Plavix) 75 mg DAILYWBKFT 06/10/17 08:00 06/14/17 09:29 75 MG Cyanocobalamin (Vitamin B-12) 500 mcg DAILY 06/14/17 09:00 06/14/17 09:39 500 MCG Cyclobenzaprine HCl (Flexeril) 10 mg QHS 06/13/17 21:00 06/13/17 21:11 10 MG Darbepoetin Joey (Aranesp) 60 mcg Fr 06/09/17 21:00 06/09/17 20:54 60 MCG Dextrose (Dextrose 50%-Water Syringe) 12.5 gm PRN Q15MIN PRN 06/08/17 09:45 06/12/17 11:27 25 GM Dextrose/Lactated Ringer's 1,000 ml @ 60 mls/hr [id number] 06/12/17 12:00 06/13/17 16:18 DC 06/13/17 06:18 60 MLS/HR Diphenhydramine HCl (Benadryl) 25 mg 1X PRN PRN 06/11/17 09:00 06/12/17 08:59 DC Docusate Sodium (Colace) 100 mg DAILY 06/14/17 09:00 Famotidine (Pepcid) 20 mg 1X ONCE 06/09/17 07:00 06/09/17 07:01 DC 06/09/17 14:35 20 MG Fentanyl Citrate (Fentanyl 2ml Vial) 50 mcg PRN Q1HR PRN 06/09/17 16:30 06/12/17 14:08 50 MCG Ferrous Sulfate (Feosol) 325 mg DAILYWBKFT 06/08/17 11:30 06/14/17 09:29 325 MG Furosemide (Lasix) 40 mg DAILY 06/14/17 09:00 06/14/17 09:39 40 MG Gabapentin (Neurontin) 600 mg PRN TID PRN 06/13/17 21:00 Guaifenesin (Robitussin Dm) 10 ml QID 06/06/17 09:00 06/14/17 09:30 10 ML Heparin Sodium (Porcine) (Heparin Sodium) 2,500 unit 1X ONCE 06/09/17 09:30 06/09/17 09:31 DC 06/09/17 09:25 2,500 UNIT Heparin Sodium/ Dextrose 500 ml @ 0 mls/hr CONT PRN 06/06/17 09:15 06/10/17 13:25 DC 06/08/17 16:49 20.9 MLS/HR Heparin Sodium/ Sodium Chloride 1,000 unit 1X ONCE 06/09/17 15:45 06/09/17 15:48 DC 06/09/17 15:55 1,000 UNIT Info (Anti-Coagulation Monitoring By Pharmacy) 1 each PRN DAILY PRN 06/08/17 08:00 06/10/17 13:25 DC 06/08/17 14:20 1 EACH Info (Do NOT chart on this entry -- for MONITORING) 1 each PRN DAILY PRN 06/09/17 16:00 06/11/17 15:59 DC Info (PHARMACY MONITORING -- do not chart) 1 each PRN DAILY PRN 06/11/17 09:00 Insulin Aspart (NovoLOG) 3 units TIDAC 06/13/17 16:30 Insulin Detemir (Levemir) 25 units QHS 06/13/17 21:00 06/13/17 21:19 25 UNITS Iodixanol (Visipaque 320) 154 ml 1X ONCE 06/09/17 15:45 06/09/17 15:48 DC 06/09/17 15:55 154 ML Lactobacillus Rhamnosus (Culturelle) 1 cap BID 06/06/17 21:00 06/14/17 09:30 1 CAP Levofloxacin (Levaquin) 250 mg 1X ONCE 06/08/17 09:30 06/08/17 09:30 DC Lidocaine HCl 20 ml 1X ONCE 06/09/17 15:45 06/09/17 15:48 DC 06/09/17 15:55 20 ML Lidocaine/Sodium Bicarbonate (Buffered Lidocaine 1%) 6 ml 1X ONCE 06/09/17 09:30 06/09/17 09:31 DC 06/09/17 09:25 6 ML Magnesium Sulfate/ Dextrose 50 ml @ 25 mls/hr 1X ONCE 06/07/17 09:00 06/07/17 10:59 DC 06/07/17 08:55 25 MLS/HR Methylprednisolone Sodium Succinate (SOLU-Medrol 125MG VIAL) 125 mg 1X ONCE 06/09/17 14:30 06/09/17 14:31 DC 06/09/17 14:36 125 MG Metoprolol Tartrate (Lopressor) 12.5 mg BID 06/07/17 13:30 06/14/17 09:29 12.5 MG Midazolam HCl (Versed) 0.5 mg 1X ONCE 06/09/17 15:45 06/09/17 15:48 DC 06/09/17 15:54 0.5 MG Nitroglycerin (Nitrostat) 0.4 mg PRN Q5MIN PRN 06/09/17 16:30 Norepinephrine Bitartrate 250 ml @ 0 mls/hr CONT PRN 06/05/17 22:45 06/10/17 13:22 DC 06/05/17 23:13 9.375 MLS/HR Ondansetron HCl (Zofran) 4 mg PRN Q6HRS PRN 06/08/17 09:00 06/12/17 14:09 4 MG Polyethylene Glycol (miraLAX PACKET) 17 gm PRN DAILY PRN 06/13/17 15:00 Potassium Chloride 100 ml @ 100 mls/hr Q1H 06/12/17 12:00 06/12/17 12:59 DC 06/12/17 12:15 100 MLS/HR Prednisone (Prednisone) 50 mg TID@0700,1500,2300 06/08/17 15:00 06/09/17 07:01 DC 06/09/17 06:27 50 MG Sacubitril/ Valsartan (Entresto 49 Mg-51 Mg) 1 tab BID 06/13/17 21:00 06/14/17 09:40 1 TAB Sodium Chloride 1,000 ml @ 60 mls/hr [id number] 06/13/17 13:15 06/13/17 13:09 60 MLS/HR Sodium Chloride (Normal Saline Flush) 10 ml 1X PRN PRN 06/11/17 09:00 06/12/17 08:59 DC Sodium Phosphate 20 mmol/Dextrose 256.6667 ml @ 64.167 m... 1X ONCE 06/13/17 17:00 06/13/17 20:59 DC 06/13/17 18:31 64.167 MLS/HR Vancomycin HCl 1 each 1X ONCE 06/07/17 20:00 06/07/17 20:00 DC Vancomycin HCl (Vanco Per Pharmacy) 1 each PRN DAILY PRN 06/05/17 20:15 06/07/17 09:14 DC 06/06/17 15:14 1 EACH Vancomycin HCl 1.25 gm/Sodium Chloride 250 ml @ 167 mls/hr Q24H 06/06/17 22:00 06/06/17 22:00 DC Vancomycin HCl 2 gm/Dextrose/ Sodium Chloride 500 ml @ 250 mls/hr 1X ONCE 06/05/17 21:00 06/05/17 22:59 DC 06/05/17 21:45 250 MLS/HR Lab Laboratory Tests Test 06/13/17 16:39 06/13/17 20:45 06/14/17 07:30 06/14/17 07:55 Glucose (Fingerstick) 158 mg/dL (70-99) 160 mg/dL (70-99) 55 mg/dL (70-99) 54 mg/dL (70-99) Test 06/14/17 08:15 06/14/17 09:28 06/14/17 12:03 06/14/17 12:25 Glucose (Fingerstick) 63 mg/dL (70-99) 106 mg/dL (70-99) 133 mg/dL (70-99) White Blood Count 8.0 x10^3/uL (4.0-11.0) Red Blood Count 3.09 x10^6/uL (3.50-5.40) Hemoglobin 8.2 g/dL (12.0-15.5) Hematocrit 25.6 % (36.0-47.0) Mean Corpuscular Volume 83 fL (79-100) Mean Corpuscular Hemoglobin 27 pg (25-35) Mean Corpuscular Hemoglobin Concent 32 g/dL (31-37) Red Cell Distribution Width 18.4 % (11.5-14.5) Platelet Count 103 x10^3/uL (140-400) Neutrophils (%) (Auto) 57 % (31-73) Lymphocytes (%) (Auto) 32 % (24-48) Monocytes (%) (Auto) 10 % (0-9) Eosinophils (%) (Auto) 0 % (0-3) Basophils (%) (Auto) 1 % (0-3) Neutrophils # (Auto) 4.6 x10^3uL (1.8-7.7) Lymphocytes # (Auto) 2.5 x10^3/uL (1.0-4.8) Monocytes # (Auto) 0.8 x10^3/uL (0.0-1.1) Eosinophils # (Auto) 0.0 x10^3/uL (0.0-0.7) Basophils # (Auto) 0.0 x10^3/uL (0.0-0.2) Sodium Level 140 mmol/L (136-145) Potassium Level 3.6 mmol/L (3.5-5.1) Chloride Level 104 mmol/L (98-107) Carbon Dioxide Level 30 mmol/L (21-32) Anion Gap 6 (6-14) Blood Urea Nitrogen 17 mg/dL (7-20) Creatinine 1.8 mg/dL (0.6-1.0) Estimated GFR (Cockcroft-Gault) 34.7 Glucose Level 156 mg/dL (70-99) Calcium Level 8.4 mg/dL (8.5-10.1) INGRID LOMBARDI MD Jun 14, 2017 13:02
--- NOTE | 2017-06-14 14:37 | PDOC ---
PROGRESS NOTES Chief Complaint Chief Complaint Cough, fever ASSESSMENT AND PLAN: 1. Sepsis: fevers, tachycardia improved 2. RML PNA: sputum cult with normal respir lucian, but blood cult pos 3. Bacteremia: S.pneumoniae. on ceftriaxone 4. ASHLEY on CKD, probable ATN 5. NSTEMI: demand response. s/p PCI/stent to LAD, chest pain free. Continue current meds including DAPT. F/U with card on O/P basis 6. CHF exacerbation: systolic cardiomyopathy with EF 20%, severe global hypokinesis. 7. Pacemaker/AICD in situ 8. HTN: borderline control. restart home meds 9. HLD: restart statin 10. DM2: on metformin at home; hold for now, ISS 11. Anemia: chronic dz 12. Thrombocytopenia: 2/2 sepsis. resolving 13. R shoulder pain: musculoskeletal 14. Obesity (BMI 33) 15. Dispo: to rehab when cleared by subspecialties History of Present Illness History of Present Illness feeling better, gaining strength, but far from baseline Vitals Vitals Vital Signs Date Time Temp Pulse Resp B/P (MAP) Pulse Ox O2 Delivery O2 Flow Rate FiO2 06/14/17 11:00 97.8 72 16 127/58 (81) 96 Nasal Cannula 2.0 97.8 Physical Exam General: Alert, Oriented X3, Cooperative, No acute distress Heart: Regular rate Lungs: Clear Abdomen: Normal bowel sounds, Soft, No tenderness Extremities: No cyanosis, No edema Skin: No rashes Labs LABS Laboratory Tests Test 06/13/17 16:39 06/13/17 20:45 06/14/17 07:30 06/14/17 07:55 Glucose (Fingerstick) 158 mg/dL (70-99) 160 mg/dL (70-99) 55 mg/dL (70-99) 54 mg/dL (70-99) Test 06/14/17 08:15 06/14/17 09:28 06/14/17 12:03 06/14/17 12:25 Glucose (Fingerstick) 63 mg/dL (70-99) 106 mg/dL (70-99) 133 mg/dL (70-99) White Blood Count 8.0 x10^3/uL (4.0-11.0) Red Blood Count 3.09 x10^6/uL (3.50-5.40) Hemoglobin 8.2 g/dL (12.0-15.5) Hematocrit 25.6 % (36.0-47.0) Mean Corpuscular Volume 83 fL (79-100) Mean Corpuscular Hemoglobin 27 pg (25-35) Mean Corpuscular Hemoglobin Concent 32 g/dL (31-37) Red Cell Distribution Width 18.4 % (11.5-14.5) Platelet Count 103 x10^3/uL (140-400) Neutrophils (%) (Auto) 57 % (31-73) Lymphocytes (%) (Auto) 32 % (24-48) Monocytes (%) (Auto) 10 % (0-9) Eosinophils (%) (Auto) 0 % (0-3) Basophils (%) (Auto) 1 % (0-3) Neutrophils # (Auto) 4.6 x10^3uL (1.8-7.7) Lymphocytes # (Auto) 2.5 x10^3/uL (1.0-4.8) Monocytes # (Auto) 0.8 x10^3/uL (0.0-1.1) Eosinophils # (Auto) 0.0 x10^3/uL (0.0-0.7) Basophils # (Auto) 0.0 x10^3/uL (0.0-0.2) Sodium Level 140 mmol/L (136-145) Potassium Level 3.6 mmol/L (3.5-5.1) Chloride Level 104 mmol/L (98-107) Carbon Dioxide Level 30 mmol/L (21-32) Anion Gap 6 (6-14) Blood Urea Nitrogen 17 mg/dL (7-20) Creatinine 1.8 mg/dL (0.6-1.0) Estimated GFR (Cockcroft-Gault) 34.7 Glucose Level 156 mg/dL (70-99) Calcium Level 8.4 mg/dL (8.5-10.1) Nutrition Consultation Dietary Evaluation: Recommendations by RD: Increase Calorie Intake Comments: REC Cardiac/ADA diet Expected Outcomes/Goals: Diet advancement within 24 - 48 hrs - met, new goal established New goal: PO intake to meet > 75% est needs Interpretation of weight loss: >5% in 1 month Malnutrition Findings: Food and Nutrition Intake (Mod: <75% est energy req 7days Weight Status: Overweight REUSCH,LOI MD Jun 14, 2017 14:37
[2017-06-14 15:00] VITALS: BP 135/62
[2017-06-14 19:37] VITALS: BP 128/57
[2017-06-14] MEDS: ATORVASTATIN CALCIUM 20 MG TABLET PO SCH (20:37)
[2017-06-14] MEDS: CYCLOBENZAPRINE 10 MG TABLET. PO SCH (20:37)
[2017-06-14] MEDS: INSULIN DETEMIR 300 UNITS/3 ML INSULN.PEN. SQ SCH (20:45)
[2017-06-14 22:16] VITALS: BP 147/70
[2017-06-15 02:00] VITALS: BP 155/75
[2017-06-15 07:00] VITALS: BP 140/65
[2017-06-15] MEDS: INSULIN ASPART 300 UNITS/3 ML INSULN.PEN SQ SCH ×4 (07:30→11:42)
--- NOTE | 2017-06-15 09:54 | PDOC ---
Infectious Disease Note Subjective Subjective Actually feels better Less abd discomfort. Ate some No fever Last BM !08/12 ROS ROS GEN: Denies fevers, chills, sweats HEENT: Denies blurred vision, sore throat CV: Denies chest pain RESP: Denies shortness of air, cough GI: Denies n/v/d NEURO: Denies confusion, dizziness MSK: Denies weakness, joint pain/swelling Vital Sign Vital Signs Vital Signs Date Time Temp Pulse Resp B/P (MAP) Pulse Ox O2 Delivery O2 Flow Rate FiO2 06/15/17 07:00 98.3 78 16 140/65 (90) 100 Nasal Cannula 2.0 98.3 Physical Exam PHYSICAL EXAM GENERAL: NAD,sitting in chair NECK - supple LUNGS: Clear anteriorly HEART: S1S2, pacemaker ABD: Soft, NT. Decreased BS EXT:+ edema, [employer]LYST: axox3 SKIN: No rash IV: ok Temp HDC. (06/09). clean Labs Lab Laboratory Tests Test 06/14/17 12:03 06/14/17 12:25 06/14/17 17:19 06/14/17 20:37 Glucose (Fingerstick) 133 mg/dL (70-99) 165 mg/dL (70-99) 199 mg/dL (70-99) White Blood Count 8.0 x10^3/uL (4.0-11.0) Red Blood Count 3.09 x10^6/uL (3.50-5.40) Hemoglobin 8.2 g/dL (12.0-15.5) Hematocrit 25.6 % (36.0-47.0) Mean Corpuscular Volume 83 fL (79-100) Mean Corpuscular Hemoglobin 27 pg (25-35) Mean Corpuscular Hemoglobin Concent 32 g/dL (31-37) Red Cell Distribution Width 18.4 % (11.5-14.5) Platelet Count 103 x10^3/uL (140-400) Neutrophils (%) (Auto) 57 % (31-73) Lymphocytes (%) (Auto) 32 % (24-48) Monocytes (%) (Auto) 10 % (0-9) Eosinophils (%) (Auto) 0 % (0-3) Basophils (%) (Auto) 1 % (0-3) Neutrophils # (Auto) 4.6 x10^3uL (1.8-7.7) Lymphocytes # (Auto) 2.5 x10^3/uL (1.0-4.8) Monocytes # (Auto) 0.8 x10^3/uL (0.0-1.1) Eosinophils # (Auto) 0.0 x10^3/uL (0.0-0.7) Basophils # (Auto) 0.0 x10^3/uL (0.0-0.2) Sodium Level 140 mmol/L (136-145) Potassium Level 3.6 mmol/L (3.5-5.1) Chloride Level 104 mmol/L (98-107) Carbon Dioxide Level 30 mmol/L (21-32) Anion Gap 6 (6-14) Blood Urea Nitrogen 17 mg/dL (7-20) Creatinine 1.8 mg/dL (0.6-1.0) Estimated GFR (Cockcroft-Gault) 34.7 Glucose Level 156 mg/dL (70-99) Calcium Level 8.4 mg/dL (8.5-10.1) Micro Streptococcus pneumoniae Recovered from aerobic and anaerobic bottles. Use of cefotaxime or ceftriaxone in meningitis requires therapy with maximum doses. (CLSI) For cefotaxime, use of interpretive criteria for nonmeningitis requires doses appropriate for serious pneumococcal infections (e.g., at least 1 g (adults) or 50 mg/kg (children) every eight hours or more frequently). (CLSI) Use of penicillin in meningitis requires therapy with maximum doses of IV penicillin (e.g. at least 3 million units every 4 hours in adults with normal renal function). (CLSI) ANTIMICROBIAL SUSCEPTIBILITY Final Comment S = Susceptible; I = Intermediate; R = Resistant P = Positive; N = Negative MICS are expressed in micrograms per mL Antibiotic RSLT#1 RSLT#2 RSLT#3 RSLT#4 Ceftriaxone (meningitis) S Ceftriaxone (non-meningitis) S Erythromycin S Levofloxacin S Meropenem S Penicillin (oral pen V) S Penicillin IV (meningitis) S Penicillin IV (non-mening) S Tetracycline S CONTINUED ON NEXT PAGE RUN DATE: 06/08/17 PAGE 2 RUN TIME: 825 [facility] [address] [place] [address] René Larkin M.D., Investment Executive SPEC: [id number] PATIENT: MASTER ZAMORANO [id number] ( Continued) Procedure Result ANTIMICROBIAL SUSCEPTIBILITY Final (continued) Trimethoprim/Sulfa S Vancomycin S Objective Assessment Strep pneumoniae bacteremia source likely lung 06/05. 06/06 neg. (Vanc/Cefepime on 06/05) NSTEMI,CM s/p cath 06/09 ASHLEY /ATN on HD Nausea and vomiting resolved. mild abd discomfort - better Anemia, Paraproteinemia Rt Shoulder pain - some better ? Gastroparesis Plan Plan of Care Can d/c abx after this am dose - has received 10 +days of therapy Ok to transfer CHELI GROSSMAN MD Jun 15, 2017 09:54
[2017-06-15] MEDS: cefTRIAXone IV Push 2 GM VIAL. IVP SCH (09:59)
[2017-06-15] MEDS: guaiFENesin DM 200MG/20MG 10 ML SYRUP PO SCH ×2 (10:00→14:20)
[2017-06-15] MEDS: CLOPIDOGREL BISULFATE 75 MG TABLET PO SCH (10:00)
[2017-06-15] MEDS: FERROUS SULFATE 325 MG TABLET. PO SCH (10:01)
[2017-06-15] MEDS: CYANOCOBALAMIN (VITAMIN B-12) 1,000 MCG TABLET. PO SCH (10:01)
[2017-06-15] MEDS: CAPSAICIN 0.025% TOPICAL CREAM 60GM TUBE. TP SCH ×2 (10:01→14:20)
[2017-06-15] MEDS: ASPIRIN CHEWABLE 81 MG TABLET. PO SCH (10:01)
[2017-06-15] MEDS: DOCUSATE SODIUM 100 MG CAPSULE. PO SCH (10:01)
[2017-06-15] MEDS: FUROSEMIDE 40 MG TABLET. PO SCH (10:01)
[2017-06-15] MEDS: LACTOBACILLUS RHAMNOSUS GG 1 CAPSULE. PO SCH (10:01)
[2017-06-15] MEDS: CARVEDILOL 3.125 MG TABLET. PO SCH (10:02)
[2017-06-15] MEDS: METOPROLOL TART IMMED RELEASE 25 MG TABLET. PO SCH (10:03)
[2017-06-15] MEDS: BENZONATATE 100 MG CAPSULE. PO SCH ×2 (10:03→14:20)
[2017-06-15] MEDS: SACUBITRIL/VALSARTAN 49/51MG TABLET. PO SCH (10:03)
--- NOTE | 2017-06-15 10:31 | PDOC ---
PROGRESS NOTES Subjective Subjective HPI - f/u of Thrombocytopenia ROS - feels better, no dyspnea Objective Objective Vital Signs Date Time Temp Pulse Resp B/P (MAP) Pulse Ox O2 Delivery O2 Flow Rate FiO2 06/15/17 10:03 84 140/65 06/15/17 07:00 98.3 16 100 Nasal Cannula 2.0 98.3 Intake and Output 06/15/17 07:00 Intake Total 921 ml Output Total 975 ml Balance -54 ml Intake Oral 450 ml IV Total 471 ml Output Urine Total 975 ml Physical Exam Heart: Normal S1, Normal S2 General: Alert, Oriented X3 Lungs: Clear to auscultation Neuro: Normal speech Psych/Mental Status: Mental status NL Assessment Assessment Problems Medical Problems: (1) Congestive heart disease Status: Acute (2) Elevated troponin Status: Acute (3) Pneumonia Status: Acute (4) Sepsis Status: Acute IMPRESSION AND PLAN: 1. Thrombocytopenia. This is a reactive thrombocytopenia due to underlying sepsis. No clinical evidence of thrombotic thrombocytopenic purpura or disseminated intravascular coagulation. Reticulocyte count is normal. Platelets 103. Continue to monitor. 2. Anemia, normochromic, normocytic. Iron studies are suggestive of anemia due to chronic disease. B12 and folic acid reveal no deficiency.Hb 8.2 3. Renal failure. 4. Sepsis. Improving Comment Review of Relevant I have reviewed the following items bro (where applicable) has been applied. Labs Laboratory Tests Test 06/13/17 12:05 06/13/17 16:39 06/13/17 20:45 06/14/17 07:30 Glucose (Fingerstick) 204 mg/dL (70-99) 158 mg/dL (70-99) 160 mg/dL (70-99) 55 mg/dL (70-99) Test 06/14/17 07:55 06/14/17 08:15 06/14/17 09:28 06/14/17 12:03 Glucose (Fingerstick) 54 mg/dL (70-99) 63 mg/dL (70-99) 106 mg/dL (70-99) 133 mg/dL (70-99) Test 06/14/17 12:25 06/14/17 17:19 06/14/17 20:37 White Blood Count 8.0 x10^3/uL (4.0-11.0) Red Blood Count 3.09 x10^6/uL (3.50-5.40) Hemoglobin 8.2 g/dL (12.0-15.5) Hematocrit 25.6 % (36.0-47.0) Mean Corpuscular Volume 83 fL (79-100) Mean Corpuscular Hemoglobin 27 pg (25-35) Mean Corpuscular Hemoglobin Concent 32 g/dL (31-37) Red Cell Distribution Width 18.4 % (11.5-14.5) Platelet Count 103 x10^3/uL (140-400) Neutrophils (%) (Auto) 57 % (31-73) Lymphocytes (%) (Auto) 32 % (24-48) Monocytes (%) (Auto) 10 % (0-9) Eosinophils (%) (Auto) 0 % (0-3) Basophils (%) (Auto) 1 % (0-3) Neutrophils # (Auto) 4.6 x10^3uL (1.8-7.7) Lymphocytes # (Auto) 2.5 x10^3/uL (1.0-4.8) Monocytes # (Auto) 0.8 x10^3/uL (0.0-1.1) Eosinophils # (Auto) 0.0 x10^3/uL (0.0-0.7) Basophils # (Auto) 0.0 x10^3/uL (0.0-0.2) Sodium Level 140 mmol/L (136-145) Potassium Level 3.6 mmol/L (3.5-5.1) Chloride Level 104 mmol/L (98-107) Carbon Dioxide Level 30 mmol/L (21-32) Anion Gap 6 (6-14) Blood Urea Nitrogen 17 mg/dL (7-20) Creatinine 1.8 mg/dL (0.6-1.0) Estimated GFR (Cockcroft-Gault) 34.7 Glucose Level 156 mg/dL (70-99) Calcium Level 8.4 mg/dL (8.5-10.1) Glucose (Fingerstick) 165 mg/dL (70-99) 199 mg/dL (70-99) Laboratory Tests Test 06/14/17 12:03 06/14/17 12:25 06/14/17 17:19 06/14/17 20:37 Glucose (Fingerstick) 133 mg/dL (70-99) 165 mg/dL (70-99) 199 mg/dL (70-99) White Blood Count 8.0 x10^3/uL (4.0-11.0) Red Blood Count 3.09 x10^6/uL (3.50-5.40) Hemoglobin 8.2 g/dL (12.0-15.5) Hematocrit 25.6 % (36.0-47.0) Mean Corpuscular Volume 83 fL (79-100) Mean Corpuscular Hemoglobin 27 pg (25-35) Mean Corpuscular Hemoglobin Concent 32 g/dL (31-37) Red Cell Distribution Width 18.4 % (11.5-14.5) Platelet Count 103 x10^3/uL (140-400) Neutrophils (%) (Auto) 57 % (31-73) Lymphocytes (%) (Auto) 32 % (24-48) Monocytes (%) (Auto) 10 % (0-9) Eosinophils (%) (Auto) 0 % (0-3) Basophils (%) (Auto) 1 % (0-3) Neutrophils # (Auto) 4.6 x10^3uL (1.8-7.7) Lymphocytes # (Auto) 2.5 x10^3/uL (1.0-4.8) Monocytes # (Auto) 0.8 x10^3/uL (0.0-1.1) Eosinophils # (Auto) 0.0 x10^3/uL (0.0-0.7) Basophils # (Auto) 0.0 x10^3/uL (0.0-0.2) Sodium Level 140 mmol/L (136-145) Potassium Level 3.6 mmol/L (3.5-5.1) Chloride Level 104 mmol/L (98-107) Carbon Dioxide Level 30 mmol/L (21-32) Anion Gap 6 (6-14) Blood Urea Nitrogen 17 mg/dL (7-20) Creatinine 1.8 mg/dL (0.6-1.0) Estimated GFR (Cockcroft-Gault) 34.7 Glucose Level 156 mg/dL (70-99) Calcium Level 8.4 mg/dL (8.5-10.1) Microbiology 06/06/17 Blood Culture - Final, Complete NO GROWTH AFTER 5 DAYS 06/07/17 - Final, Complete 06/07/17 - Final, Complete 06/07/17 - Final, Complete 06/07/17 Gram Stain Evaluation - Final, Complete 06/07/17 Sputum Culture - Final, Complete 06/07/17 Sputum Result 1 - Final, Complete 06/07/17 Sputum Result 2 - Final, Complete 06/06/17 Urine Culture - Final, Complete 06/06/17 Urine Culture Result 1 (TANJA) - Final, Complete Medications Current Medications Ondansetron HCl (Zofran) 8 mg 1X ONCE IV Last administered on 06/05/17 18:36 ; Start 06/05/17 at 18:30; Stop 06/05/17 at 18:31; Status DC Aspirin (Children'S Aspirin) 324 mg 1X ONCE PO Last administered on 19:48; Start 06/05/17 at 19:45; Stop 06/05/17 at 19:46; Status DC Sodium Chloride 1,000 ml @ 1,000 mls/hr 1X ONCE IV Last administered on 06/05 20:12; Start 06/05/17 at 20:00; Stop 06/05/17 at 20:59; Status DC Cefepime HCl 2 gm/ Dextrose 100 ml @ 200 mls/hr 1X ONCE IV ; Start 06/05/17 at 20:00; Stop 06/05/17 at 20:04; Status DC Cefepime HCl (Maxipime) 2 gm Q12HR IVP Last administered on 06/08/17 09:02; Start 06/05/17 at 21:00; Stop 06/08/17 at 09:21; Status DC Ondansetron HCl (Zofran) 4 mg PRN Q8HRS PRN IV NAUSEA/VOMITING; Start at 20:15; Stop 06/06/17 at 08:52; Status DC Sodium Chloride 1,000 ml @ 75 mls/hr [id number] IV Last administered on 10:30; Start 06/05/17 at 20:06; Stop 06/06/17 at 20:05; Status DC Albuterol/ Ipratropium (Duoneb) 3 ml RTQID NEB ; Start 06/06/17 at 08:00; Stop 06/07/17 at 07:59; Status DC Acetaminophen (Tylenol) 650 mg PRN Q6HRS PRN PO fever Last administered on 16:33; Start 06/05/17 at 20:15; Stop 06/09/17 at 16:31; Status DC Vancomycin HCl (Vanco Per Pharmacy) 1 each PRN DAILY PRN MC SEE COMMENTS Last administered on 06/06/17 15:14; Start 06/05/17 at 20:15; Stop 06/07/17 at 09 :14; Status DC Acetaminophen (Tylenol) 1,000 mg 1X ONCE PO Last administered on 06/05/17 20 :17; Start 06/05/17 at 20:15; Stop 06/05/17 at 20:21; Status DC Vancomycin HCl 2 gm/Dextrose/ Sodium Chloride 500 ml @ 250 mls/hr 1X ONCE IV Last administered on 06/05/17 21:45; Start 06/05/17 at 21:00; Stop 06/05/17 at 22:59; Status DC Vancomycin HCl 1.25 gm/Sodium Chloride 250 ml @ 167 mls/hr Q24H IV ; Start at 22:00; Stop 06/06/17 at 22:00; Status DC Vancomycin HCl 1 each 1X ONCE MC ; Start 06/07/17 at 20:00; Stop 06/07/17 at 20:00; Status DC Norepinephrine Bitartrate 250 ml @ 0 mls/hr CONT PRN IV SEE I/O RECORD Last administered on 06/05/17 23:13; Start 06/05/17 at 22:45; Stop 06/10/17 at 13 :22; Status DC Magnesium Sulfate/ Dextrose 50 ml @ 25 mls/hr PRN DAILY PRN IV for Mag < 1.7 on am labs Last administered on 06/06/17 12:40; Start 06/06/17 at 08:30 Ondansetron HCl (Zofran) 4 mg PRN Q6HRS PRN IV NAUSEA/VOMITING; Start at 09:00; Stop 06/07/17 at 08:59; Status DC Guaifenesin (Robitussin Dm) 10 ml QID PO Last administered on 06/15/17 10:00 ; Start 06/06/17 at 09:00 Heparin Sodium (Porcine) (Heparin Sodium) 4,000 unit 1X ONCE IV Last administered on 06/06/17 10:19; Start 06/06/17 at 09:15; Stop 06/06/17 at 09 :21; Status DC Heparin Sodium/ Dextrose 500 ml @ 0 mls/hr CONT PRN IV SEE I/O RECORD Last administered on 06/08/17 16:49; Start 06/06/17 at 09:15; Stop 06/10/17 at 13 :25; Status DC Heparin Sodium (Porcine) (Heparin Sodium) 2,000 unit PRN Q6HRS PRN IV FOR UFH LEVEL LESS THAN 0.2; Start 06/06/17 at 09:15; Stop 06/10/17 at 13:25; Status DC Furosemide (Lasix) 40 mg 1X ONCE IVP Last administered on 06/06/17 10:09; Start 06/06/17 at 10:00; Stop 06/06/17 at 10:01; Status DC Aspirin (Ecotrin) 81 mg DAILYWBKFT PO Last administered on 06/09/17 08:46; Start 06/07/17 at 08:00; Stop 06/10/17 at 09:36; Status DC Lactobacillus Rhamnosus (Culturelle) 1 cap BID PO Last administered on 10:01; Start 06/06/17 at 21:00 Acetaminophen/ Hydrocodone Bitart (Lortab 5/325) 1 tab PRN Q6HRS PRN PO PAIN Last administered on 06/14/17 05:06; Start 06/06/17 at 20:30 Capsaicin (Zostrix) 1 nelson TID TP Last administered on 06/15/17 10:01; Start 06/06/17 at 21:00 Benzonatate (Tessalon Perle) 100 mg TID PO Last administered on 06/15/17 10: 03; Start 06/07/17 at 04:00 Magnesium Sulfate/ Dextrose 50 ml @ 25 mls/hr 1X ONCE IV Last administered on 06/07/17 08:55; Start 06/07/17 at 09:00; Stop 06/07/17 at 10:59; Status DC Docusate Sodium (Colace) 100 mg DAILY PO Last administered on 06/15/17 10:01 ; Start 06/07/17 at 10:30 Metoprolol Tartrate (Lopressor) 12.5 mg BID PO Last administered on 06/15/17 10:03; Start 06/07/17 at 13:30 Info (Anti-Coagulation Monitoring By Pharmacy) 1 each PRN DAILY PRN MC SEE COMMENTS Last administered on 06/08/17 14:20; Start 06/08/17 at 08:00; Stop 06/10/17 at 13:25; Status DC Ondansetron HCl (Zofran) 4 mg PRN Q6HRS PRN IV NAUSEA/VOMITING 1ST CHOICE Last administered on 06/12/17 14:09; Start 06/08/17 at 09:00 Ceftriaxone Sodium 2 gm/ Dextrose 100 ml @ 200 mls/hr Q12HR IV ; Start at 21:00; Status UNV Levofloxacin (Levaquin) 250 mg 1X ONCE PO ; Start 06/08/17 at 09:30; Stop at 09:30; Status DC Ceftriaxone Sodium (Rocephin) 2 gm Q12HR IVP Last administered on 06/12/17 08 :50; Start 06/08/17 at 10:00; Stop 06/12/17 at 10:05; Status DC Insulin Detemir (Levemir) 10 units QHS SQ Last administered on 06/11/17 20:36 ; Start 06/08/17 at 21:00; Stop 06/12/17 at 12:21; Status DC Insulin Aspart (NovoLOG) 0-9 UNITS TIDWMEALS SQ Last administered on 12:53; Start 06/08/17 at 12:00 Dextrose (Dextrose 50%-Water Syringe) 12.5 gm PRN Q15MIN PRN IV SEE COMMENTS Last administered on 06/12/17 11:27; Start 06/08/17 at 09:45 Ferrous Sulfate (Feosol) 325 mg DAILYWBKFT PO Last administered on 06/15/17 10:01; Start 06/08/17 at 11:30 Prednisone (Prednisone) 50 mg TID@0700,1500,2300 PO Last administered on 06:27; Start 06/08/17 at 15:00; Stop 06/09/17 at 07:01; Status DC Diphenhydramine HCl (Benadryl) 50 mg 1X ONCE PO Last administered on 14:35; Start 06/09/17 at 07:00; Stop 06/09/17 at 07:01; Status DC Famotidine (Pepcid) 20 mg 1X ONCE PO Last administered on 06/09/17 14:35; Start 06/09/17 at 07:00; Stop 06/09/17 at 07:01; Status DC Sodium Chloride 1,000 ml @ 60 mls/hr [id number] IV Last administered on 04:10; Start 06/08/17 at 20:00; Stop 06/12/17 at 11:52; Status DC Methylprednisolone Sodium Succinate (SOLU-Medrol 125MG VIAL) 125 mg 1X ONCE IV ; Start 06/09/17 at 08:00; Stop 06/09/17 at 08:01; Status Cancel Diphenhydramine HCl (Benadryl) 50 mg 1X ONCE IVP ; Start 06/09/17 at 08:00; Stop 06/09/17 at 08:01; Status DC Acetylcysteine (Mucomyst 20% Oral Solution) 600 mg BID PO Last administered on 06/10/17 20:21; Start 06/09/17 at 08:00; Stop 06/11/17 at 07:59; Status DC Acetaminophen (Tylenol) 650 mg 1X ONCE PO Last administered on 06/09/17 14: 35; Start 06/09/17 at 08:00; Stop 06/09/17 at 08:01; Status DC Lidocaine/Sodium Bicarbonate (Buffered Lidocaine 1%) 3 ml STK-MED ONCE IJ ; Start 06/09/17 at 08:16; Stop 06/09/17 at 08:17; Status DC Heparin Sodium (Porcine) (Heparin Sodium) 10,000 unit STK-MED ONCE .ROUTE ; Start 06/09/17 at 08:16; Stop 06/09/17 at 08:17; Status DC Lidocaine/Sodium Bicarbonate (Buffered Lidocaine 1%) 6 ml 1X ONCE IJ Last administered on 06/09/17 09:25; Start 06/09/17 at 09:30; Stop 06/09/17 at 09 :31; Status DC Heparin Sodium (Porcine) (Heparin Sodium) 2,500 unit 1X ONCE INT CAT Last administered on 06/09/17 09:25; Start 06/09/17 at 09:30; Stop 06/09/17 at 09 :31; Status DC Methylprednisolone Sodium Succinate (SOLU-Medrol 125MG VIAL) 125 mg 1X ONCE IV Last administered on 06/09/17 14:36; Start 06/09/17 at 14:30; Stop at 14:31; Status DC Heparin Sodium/ Sodium Chloride 500 ml @ As Directed STK-MED ONCE .ROUTE ; Start 06/09/17 at 14:36; Stop 06/09/17 at 14:37; Status DC Iodixanol (Visipaque 320) 100 ml STK-MED ONCE .ROUTE ; Start 06/09/17 at 14:36 ; Stop 06/09/17 at 14:37; Status DC Lidocaine HCl 20 ml STK-MED ONCE .ROUTE ; Start 06/09/17 at 14:37; Stop at 14:38; Status DC Darbepoetin Joey (Aranesp) 60 mcg Fr SQ Last administered on 06/09/17 20:54; Start 06/09/17 at 21:00 Fentanyl Citrate (Fentanyl 2ml Vial) 100 mcg STK-MED ONCE .ROUTE ; Start at 15:02; Stop 06/09/17 at 15:03; Status DC Midazolam HCl (Versed) 2 mg STK-MED ONCE .ROUTE ; Start 06/09/17 at 15:02; Stop 06/09/17 at 15:03; Status DC Bivalirudin (Angiomax) 250 mg STK-MED ONCE IV ; Start 06/09/17 at 15:19; Stop 06/09/17 at 15:20; Status DC Iodixanol (Visipaque 320) 100 ml STK-MED ONCE .ROUTE ; Start 06/09/17 at 15:24 ; Stop 06/09/17 at 15:25; Status DC Clopidogrel Bisulfate (Plavix) 75 mg STK-MED ONCE .ROUTE ; Start 06/09/17 at 15 :37; Stop 06/09/17 at 15:38; Status DC Heparin Sodium/ Sodium Chloride 1,000 unit 1X ONCE IART Last administered on 06/09/17 15:55; Start 06/09/17 at 15:45; Stop 06/09/17 at 15:48; Status DC Midazolam HCl (Versed) 0.5 mg 1X ONCE IV Last administered on 06/09/17 15:54 ; Start 06/09/17 at 15:45; Stop 06/09/17 at 15:48; Status DC Fentanyl Citrate (Fentanyl 2ml Vial) 12.5 mcg 1X ONCE IV Last administered on 06/09/17 16:00; Start 06/09/17 at 15:45; Stop 06/09/17 at 15:48; Status DC Iodixanol (Visipaque 320) 154 ml 1X ONCE IART Last administered on 06/09/17 15:55; Start 06/09/17 at 15:45; Stop 06/09/17 at 15:48; Status DC Bivalirudin (Angiomax) 250 mg 1X ONCE IV Last administered on 06/09/17 15:59 ; Start 06/09/17 at 15:45; Stop 06/09/17 at 15:48; Status DC Clopidogrel Bisulfate (Plavix) 600 mg 1X ONCE PO Last administered on 16:00; Start 06/09/17 at 15:45; Stop 06/09/17 at 15:48; Status DC Lidocaine HCl 20 ml 1X ONCE IJ Last administered on 06/09/17 15:55; Start 06/09/17 at 15:45; Stop 06/09/17 at 15:48; Status DC Info (Do NOT chart on this entry -- for MONITORING) 1 each PRN DAILY PRN MC SEE COMMENTS; Start 06/09/17 at 16:00; Stop 06/11/17 at 15:59; Status DC Clopidogrel Bisulfate (Plavix) 75 mg STK-MED ONCE .ROUTE ; Start 06/09/17 at 15 :51; Stop 06/09/17 at 15:52; Status DC Aspirin (Children'S Aspirin) 244 mg 1X ONCE PO Last administered on 16:03; Start 06/09/17 at 16:15; Stop 06/09/17 at 16:16; Status DC Aspirin (Ecotrin) 325 mg DAILYWBKFT PO Last administered on 06/13/17 09:15; Start 06/10/17 at 08:00; Stop 06/13/17 at 15:29; Status DC Clopidogrel Bisulfate (Plavix) 75 mg DAILYWBKFT PO Last administered on 10:00; Start 06/10/17 at 08:00 Atorvastatin Calcium (Lipitor) 40 mg QHS PO Last administered on 06/14/17 20: 37; Start 06/09/17 at 21:00 Acetaminophen (Tylenol) 650 mg PRN Q6HRS PRN PO MILD PAIN / TEMP; Start at 16:30 Fentanyl Citrate (Fentanyl 2ml Vial) 50 mcg PRN Q1HR PRN IV MODERATE OR SEVERE PAIN Last administered on 06/12/17 14:08; Start 06/09/17 at 16:30 Nitroglycerin (Nitrostat) 0.4 mg PRN Q5MIN PRN SL CHEST PAIN; Start 06/09/17 at 16:30 Sodium Chloride 1,000 ml @ 1,000 mls/hr Q1H PRN IV hypotension; Start at 08:25; Stop 06/10/17 at 14:24; Status DC Diphenhydramine HCl (Benadryl) 25 mg 1X PRN PRN IV ITCHING; Start 06/10/17 at 08:30; Stop 06/11/17 at 08:29; Status DC Diphenhydramine HCl (Benadryl) 25 mg 1X PRN PRN IV ITCHING; Start 06/10/17 at 08:30; Stop 06/11/17 at 08:29; Status DC Sodium Chloride (Normal Saline Flush) 10 ml 1X PRN PRN IV AP catheter pack; Start 06/10/17 at 08:30; Stop 06/11/17 at 08:29; Status DC Sodium Chloride (Normal Saline Flush) 10 ml 1X PRN PRN IV DEFLASH AND WASH OPERATOR catheter pack; Start 06/10/17 at 08:30; Stop 06/11/17 at 08:29; Status DC Sodium Chloride 1,000 ml @ 400 mls/hr Q2H30M PRN IV PATENCY; Start 06/10/17 at 08:25; Stop 06/10/17 at 20:24; Status DC Info (PHARMACY MONITORING -- do not chart) 1 each PRN DAILY PRN MC SEE COMMENTS ; Start 06/10/17 at 08:30; Stop 06/11/17 at 15:07; Status DC Sodium Chloride 1,000 ml @ 1,000 mls/hr Q1H PRN IV hypotension; Start at 08:47; Stop 06/11/17 at 14:46; Status DC Diphenhydramine HCl (Benadryl) 25 mg 1X PRN PRN IV ITCHING; Start 06/11/17 at 09:00; Stop 06/12/17 at 08:59; Status DC Diphenhydramine HCl (Benadryl) 25 mg 1X PRN PRN IV ITCHING; Start 06/11/17 at 09:00; Stop 06/12/17 at 08:59; Status DC Sodium Chloride (Normal Saline Flush) 10 ml 1X PRN PRN IV AP catheter pack; Start 06/11/17 at 09:00; Stop 06/12/17 at 08:59; Status DC Sodium Chloride (Normal Saline Flush) 10 ml 1X PRN PRN IV DEFLASH AND WASH OPERATOR catheter pack; Start 06/11/17 at 09:00; Stop 06/12/17 at 08:59; Status DC Sodium Chloride 1,000 ml @ 400 mls/hr Q2H30M PRN IV PATENCY; Start 06/11/17 at 08:47; Stop 06/11/17 at 20:46; Status DC Info (PHARMACY MONITORING -- do not chart) 1 each PRN DAILY PRN MC SEE COMMENTS ; Start 06/11/17 at 09:00 Ceftriaxone Sodium (Rocephin) 2 gm DAILY IVP Last administered on 06/15/17 09 :59; Start 06/13/17 at 09:00 Dextrose/Lactated Ringer's 1,000 ml @ 60 mls/hr [id number] IV Last administered on 06/13/17 06:18; Start 06/12/17 at 12:00; Stop 06/13/17 at 16:18; Status DC Potassium Chloride 100 ml @ 100 mls/hr Q1H IV Last administered on 06/12/17 12:15; Start 06/12/17 at 12:00; Stop 06/12/17 at 12:59; Status DC Sodium Chloride 1,000 ml @ 60 mls/hr [id number] IV Last administered on 13:09; Start 06/13/17 at 13:15; Stop 06/14/17 at 13:01; Status DC Aspirin (Children'S Aspirin) 81 mg DAILY PO Last administered on 06/15/17 10: 01; Start 06/14/17 at 09:00 Atorvastatin Calcium (Lipitor) 40 mg HS PO ; Start 06/13/17 at 21:00; Status Cancel Carvedilol (Coreg) 9.375 mg BIDWMEALS PO Last administered on 06/15/17 10:02 ; Start 06/13/17 at 17:00 Cyanocobalamin (Vitamin B-12) 500 mcg DAILY PO Last administered on 06/15/17 10:01; Start 06/14/17 at 09:00 Cyclobenzaprine HCl (Flexeril) 10 mg QHS PO Last administered on 06/14/17 20: 37; Start 06/13/17 at 21:00 Docusate Sodium (Colace) 100 mg DAILY PO ; Start 06/14/17 at 09:00; Stop 06/14 at 15:32; Status DC Furosemide (Lasix) 40 mg DAILY PO Last administered on 06/15/17 10:01; Start 06/14/17 at 09:00 Polyethylene Glycol (miraLAX PACKET) 17 gm PRN DAILY PRN PO CONSTIPATION; Start 06/13/17 at 15:00 Sacubitril/ Valsartan (Entresto 49 Mg-51 Mg) 1 tab BID PO Last administered on 06/15/17 10:03; Start 06/13/17 at 21:00 Gabapentin (Neurontin) 600 mg PRN TID PRN PO Pain; Start 06/13/17 at 21:00 Insulin Aspart (NovoLOG) 3 units TIDAC SQ ; Start 06/13/17 at 16:30 Insulin Detemir (Levemir) 25 units QHS SQ Last administered on 06/14/17 20:45 ; Start 06/13/17 at 21:00 Sodium Phosphate 20 mmol/Dextrose 256.6667 ml @ 64.167 m... 1X ONCE IV Last administered on 06/13/17 18:31; Start 06/13/17 at 17:00; Stop 06/13/17 at 20 :59; Status DC Active Scripts Active Cyclobenzaprine Hcl 10 Mg Tablet 1 Tab PO QHS Reported Coreg (Carvedilol) 6.25 Mg Tablet 1.5 Tab PO BID Entresto 49 mg-51 mg Tablet (Sacubitril/Valsartan) 1 Each Tablet 1 Each PO BID Atorvastatin Calcium 40 Mg Tablet 40 Mg PO HS Miralax (Polyethylene Glycol 3350) 17 Gm Powd.pack 1 Packet PO PRN DAILY PRN Colace (Docusate Sodium) 100 Mg Capsule 1 Cap PO DAILY Furosemide 20 Mg Tablet 40 Mg PO DAILY Gabapentin 300 Mg Capsule 600 Mg PO PRN TID PRN Vitamin B-12 (Cyanocobalamin (Vitamin B-12)) 1,000 Mcg Tablet 500 Mcg PO DAILY Lantus Solostar (Insulin Glargine,Hum.rec.anlog) 100 Unit/1 Ml Insuln.pen 25 Unit SQ QHS Novolog (Insulin Aspart) 100 Unit/1 Ml Cartridge 3 Unit SQ TIDAC Aspirin 81 Mg Tab.chew 81 Mg PO DAILY Metformin Hcl 500 Mg Tablet 1,000 Mg PO BID Vitals/I & O Vital Sign - Last 24 Hours 06/14/17 06/14/17 06/14/17 06/14/17 11:00 15:00 17:37 19:37 Temp 97.8 98.0 98.3 97.8 98.0 98.3 Pulse 72 78 78 72 Resp 16 16 14 B/P (MAP) 127/58 (81) 135/62 (86) 135/62 128/57 (80) Pulse Ox 96 98 O2 Delivery Nasal Cannula Nasal Cannula Nasal Cannula O2 Flow Rate 2.0 2.0 06/14/17 06/14/17 06/14/17 06/14/17 20:12 20:13 20:37 20:38 Pulse 73 72 B/P (MAP) 128/57 128/57 Pulse Ox 99 O2 Delivery Nasal Cannula Nasal Cannula O2 Flow Rate 2.0 3.0 06/14/17 06/15/17 06/15/17 06/15/17 22:16 02:00 07:00 10:02 Temp 97.8 97.9 98.3 97.8 97.9 98.3 Pulse 76 81 78 84 Resp 18 16 16 B/P (MAP) 147/70 (95) 155/75 (101) 140/65 (90) 140/65 Pulse Ox 100 100 100 O2 Delivery Nasal Cannula Nasal Cannula Nasal Cannula O2 Flow Rate 2.0 2.0 2.0 06/15/17 06/15/17 10:03 10:03 Pulse 85 84 B/P (MAP) 140/65 140/65 Intake and Output 06/14/17 06/14/17 06/15/17 15:00 23:00 07:00 Intake Total 471 ml 450 ml Output Total 725 ml 250 ml Balance 471 ml -275 ml -250 ml Nutrition Consultation Dietary Evaluation: Recommendations by RD: Increase Calorie Intake Comments: REC Cardiac/ADA diet Expected Outcomes/Goals: Diet advancement within 24 - 48 hrs - met, new goal established New goal: PO intake to meet > 75% est needs - not met, goal ongoing Interpretation of weight loss: >5% in 1 month Malnutrition Findings: Food and Nutrition Intake (Mod: <75% est energy req 7days Weight Status: Overweight SEGUNDO CABRAL MD Jun 15, 2017 10:31
[2017-06-15 11:00] VITALS: BP 128/62
[2017-06-15 12:14] LABS: CREATININE 1.7 mg/dL (0.6-1.0); GFR 37.1; POTASSIUM 3.6 mmol/L (3.5-5.1)
[2017-06-15 13:43] LABS: BASO % 0 % (0-3); EOS % 0 % (0-3); HEMATOCRIT 25.1 % (36.0-47.0); HEMOGLOBIN 8.1 g/dL (12.0-15.5); LYMPH % 29 % (24-48); MEAN CORPUSCULAR HEMOGLOBIN 27 pg (25-35); MEAN CORPUSCULAR HGB CONC 32 g/dL (31-37); MEAN CORPUSCULAR VOLUME 83 fL (79-100); MONO % 11 % (0-9); NEUT % 59 % (31-73); PLATELET COUNT 109 x10^3/uL (140-400); RED BLOOD COUNT 3.03 x10^6/uL (3.50-5.40); RED CELL DISTRIBUTION WIDTH 17.8 % (11.5-14.5); WHITE BLOOD COUNT 6.9 x10^3/uL (4.0-11.0)
--- NOTE | 2017-06-15 13:49 | PDOC ---
PROGRESS NOTES Chief Complaint Chief Complaint Cough, fever ASSESSMENT AND PLAN: 1. Sepsis: fevers, tachycardia improved 2. RML PNA: sputum cult with normal respir lucian, but blood cult pos 3. Bacteremia: S.pneumoniae. on ceftriaxone, completed 10 days today, can be stopped as per ID 4. ASHLEY on CKD, probable ATN 5. NSTEMI: demand response. s/p PCI/stent to LAD on 06/09. chest pain free. Continue current meds including DAPT. F/U with card on O/P basis 6. CHF exacerbation: systolic cardiomyopathy with EF 20%, severe global hypokinesis. 7. Pacemaker/AICD in situ 8. HTN: well controlled on home meds 9. HLD: on statin 10. DM2: on metformin at home; hold for now, ISS 11. Anemia: chronic dz 12. Thrombocytopenia: 2/2 sepsis. resolving 13. R shoulder pain: musculoskeletal 14. Obesity (BMI 33) 15. Dispo: to rehab when cleared by subspecialties History of Present Illness History of Present Illness feels ok, getting better every day. feels ready for rehab Vitals Vitals Vital Signs Date Time Temp Pulse Resp B/P (MAP) Pulse Ox O2 Delivery O2 Flow Rate FiO2 06/15/17 11:00 98.0 83 16 128/62 (84) 100 Nasal Cannula 2.0 98.0 Physical Exam General: Alert, Oriented X3 Heart: Regular rate, Normal S2 Lungs: Clear Abdomen: Normal bowel sounds, Soft, No tenderness Extremities: No cyanosis, No edema Skin: No rashes Labs LABS Laboratory Tests Test 06/14/17 17:19 06/14/17 20:37 06/15/17 11:33 06/15/17 11:40 Glucose (Fingerstick) 165 mg/dL (70-99) 199 mg/dL (70-99) 75 mg/dL (70-99) Sodium Level 138 mmol/L (136-145) Potassium Level 3.6 mmol/L (3.5-5.1) Chloride Level 104 mmol/L (98-107) Carbon Dioxide Level 23 mmol/L (21-32) Anion Gap 11 (6-14) Blood Urea Nitrogen 18 mg/dL (7-20) Creatinine 1.7 mg/dL (0.6-1.0) Estimated GFR (Cockcroft-Gault) 37.1 Glucose Level 98 mg/dL (70-99) Calcium Level 8.0 mg/dL (8.5-10.1) Nutrition Consultation Dietary Evaluation: Recommendations by RD: Increase Calorie Intake Comments: REC Cardiac/ADA diet Expected Outcomes/Goals: Diet advancement within 24 - 48 hrs - met, new goal established New goal: PO intake to meet > 75% est needs - not met, goal ongoing Interpretation of weight loss: >5% in 1 month Malnutrition Findings: Food and Nutrition Intake (Mod: <75% est energy req 7days Weight Status: Overweight LOI SYKES MD Jun 15, 2017 13:49
[2017-06-15 15:00] VITALS: BP 105/67
--- NOTE | 2017-06-16 18:59 | DS ---
DATE OF DISCHARGE: 06/15/2017 CHIEF COMPLAINT: Cough, fever. HOSPITAL COURSE: The patient is a 62-year-old -[place] woman who presented with above complaints, was found with sepsis and right middle lobe pneumonia. She did grow Streptococcus pneumoniae in her blood cultures and was maintained on ceftriaxone for 10 days, with ID Service directing her antibiotic regimen. She did have a small NSTEMI, which was deemed secondary to demand with pneumonia. Did undergo a [employer] MANA[employer] with stent to LAD on the and remained chest pain free afterwards. She does have a history of CHF and some amount of exacerbation was deemed present as well. Her echo showed an EF of only 20% and severe global hypokinesis. Pacemaker is in place already. All other medical issues remained stable and did not require any further additional intervention. PHYSICAL EXAMINATION: VITAL SIGNS: Show a blood pressure of 128/62, heart rate of 83, respiratory rate at 16. She is afebrile. GENERAL: This is a 62-year-old woman, awake, alert, in no acute distress. LUNGS: Clear. HEART: Regular rate and rhythm. ABDOMEN: Has positive bowel sounds, soft, nontender. EXTREMITIES: Show no edema. DISCHARGE DIAGNOSES: 1. Right middle lobe pneumonia. 2. Congestive heart failure exacerbation. 3. Chronic obstructive pulmonary disease exacerbation. 4. Non-ST elevation myocardial infarction with stent on 06/09/2017 to LAD. DISCHARGE DISPOSITION: To rehab. DISCHARGE CONDITION: Improved. DISCHARGE MEDICATIONS: Please refer to MAR. DISCHARGE INSTRUCTIONS: The patient will follow up with Cardiology in 2 weeks as well as her primary care physician. Greater than 30 minutes were spent in arranging discharge. LOI SYKES MD DR: UR/nts JOB#: [id number] / [id number] NEHAL Reyes MD
== END 2017-06-15 16:41 | DRG 853 ==
LOC: ER 17:52 → 1 WEST ICU 19:30 → 2 NORTH 06-08 20:10
PROVIDERS: ADMIT Internal Medicine; ATTEND Internal Medicine
PROC: 4A023N7 Measurement of Cardiac Sampling and Pressure, Left Heart, Percutaneous Approach (ICD-10-PCS; principal; 2017-06-09)
PROC: 027034Z Dilation of Coronary Artery, One Artery with Drug-eluting Intraluminal Device, Percutaneous Approach (ICD-10-PCS; 2017-06-09)
PROC: B2111ZZ Fluoroscopy of Multiple Coronary Arteries using Low Osmolar Contrast (ICD-10-PCS; 2017-06-09)
PROC: B2151ZZ Fluoroscopy of Left Heart using Low Osmolar Contrast (ICD-10-PCS; 2017-06-09)
PROC: B2141ZZ Fluoroscopy of Right Heart using Low Osmolar Contrast (ICD-10-PCS; 2017-06-09)
PROC: 02H633Z Insertion of Infusion Device into Right Atrium, Percutaneous Approach (ICD-10-PCS; 2017-06-09)
PROC: B244ZZZ Ultrasonography of Right Heart (ICD-10-PCS; 2017-06-09)
DX: A40.3 Sepsis due to Streptococcus pneumoniae (principal); I21.4 Non-ST elevation (NSTEMI) myocardial infarction; N17.0 Acute kidney failure with tubular necrosis; R65.21 Severe sepsis with septic shock; D69.59 Other secondary thrombocytopenia; G03.9 Meningitis, unspecified; J18.1 Lobar pneumonia, unspecified organism; E11.22 Type 2 diabetes mellitus with diabetic chronic kidney disease; I50.43 Acute on chronic combined systolic (congestive) and diastolic (congestive) heart failure; I13.0 Hypertensive heart and chronic kidney disease with heart failure and stage 1 through stage 4 chronic kidney disease, or unspecified chronic kidney disease; N18.4 Chronic kidney disease, stage 4 (severe); I42.0 Dilated cardiomyopathy; J44.0 Chronic obstructive pulmonary disease with (acute) lower respiratory infection; J44.1 Chronic obstructive pulmonary disease with (acute) exacerbation; D89.2 Hypergammaglobulinemia, unspecified; D63.8 Anemia in other chronic diseases classified elsewhere; E11.319 Type 2 diabetes mellitus with unspecified diabetic retinopathy without macular edema; E78.5 Hyperlipidemia, unspecified; E86.0 Dehydration; H54.61 Unqualified visual loss, right eye, normal vision left eye; I25.10 Atherosclerotic heart disease of native coronary artery without angina pectoris; I27.20 Pulmonary hypertension, unspecified; K21.9 Gastro-esophageal reflux disease without esophagitis; M19.90 Unspecified osteoarthritis, unspecified site; M81.0 Age-related osteoporosis without current pathological fracture; E11.42 Type 2 diabetes mellitus with diabetic polyneuropathy; E66.9 Obesity, unspecified; Z68.33 Body mass index [BMI] 33.0-33.9, adult; Z79.4 Long term (current) use of insulin; Z80.3 Family history of malignant neoplasm of breast; Z82.49 Family history of ischemic heart disease and other diseases of the circulatory system; Z83.3 Family history of diabetes mellitus; Z88.1 Allergy status to other antibiotic agents; Z90.710 Acquired absence of both cervix and uterus; Z91.041 Radiographic dye allergy status; Z95.810 Presence of automatic (implantable) cardiac defibrillator; Z98.61 Coronary angioplasty status; Z89.412 Acquired absence of left great toe; Z90.49 Acquired absence of other specified parts of digestive tract; Z88.8 Allergy status to other drugs, medicaments and biological substances; Z98.49 Cataract extraction status, unspecified eye; Z79.899 Other long term (current) drug therapy
CPT/HCPCS: 36415; 36556; 71010; 71020; 71250; 73030; 74176; 76937; 77001; 80048; 80053; 80069; 81001; 82575; 82607; 82728; 82746; 82962; 83520; 83540; 83550; 83605; 83690; 83735; 83880; 83970; 84156; 84165; 84166; 84484; 85007; 85025; 85027; 85045; 85520; 86334; 86705; 86706; 87040; 87070; 87086; 87205; 87340; 87449; 87641; 87804; 92928; 93005; 93306; 93458; 96361; 96374; 99152; 99153; C1713; C1725; C1769; C1771; C1887; C1892; G0269; J0583; J0692; J0696; J0881; J1644; J1815; J1940; J2250; J2405; J2930; J3010; J3370; J3480; J7030; J7042; J7060; J7512; Q0163; 97110; 97116; 97530; 97535; 99285-25; J2001